=== PATIENT | female | born 1940 | race Caucasian/White ===

== ENCOUNTER 2017-10-29 11:06 | Inpatient (IN) | payer MEDICARE, OTHER, SELFPAY ==
[2017-10-29] VITALS (11 sets, daily range): BP systolic 78–153; BP diastolic 51–82; PULSE 79–102; RESP 14–28; TEMP 37.1–37.4; O2SAT 89–94; BMI 22.3
--- NOTE | 2017-10-29 | DI.MRI.S_ITS ---
PROCEDURE: MR HEAD/BRAIN WO CON INDICATIONS: rule out posterior circulation cva. Ataxia. Decreased right visual field TECHNIQUE: Noncontrast axial T1 spin echo, axial T2 fast spin echo, sagittal and axial FLAIR, coronal T2 fast spin echo, axial gradient echo, axial diffusion and ADC through the brain. COMPARISON: [facility], CT, CT HEAD/BRAIN WO CON, 10/29/2017, 11:48. [facility], NM, PET/CT SKULL BASE TO MID THIGH, 01/08/2017, 11:23. [facility], MR, C-SPINE WITHOUT CONTRAST, 09/20/2013, 14:50. FINDINGS: Image quality: Excellent. CSF Spaces: Basal cisterns are patent. No extra-axial fluid collections. Ventricles are normal in size and shape. Brain: No intracranial masses or hemorrhage. Chu/white matter interface is normal. Brainstem appears normal. Diffusion-weighted images demonstrate no acute ischemic insult. Severe diffuse bilateral subcortical and periventricular white matter T2 signal hyperintensities are noted. Normal intravascular flow voids are present. Skull and face: Calvarium has a nonspecific heterogeneous signal intensity. Orbits appear normal. Sinuses: Sinuses and mastoids are clear. IMPRESSION: Severe diffuse bilateral subcortical and periventricular white matter T2 signal hyperintensities, a nonspecific finding that may represent the sequela of chronic microvascular ischemic changes but can also be seen with demyelinating disorders. Dictated by: Wang Suarez M.D. on 10/29/2017 at 23:09 Approved by: Wang Suarez M.D. on 10/29/2017 at 23:19
--- NOTE | 2017-10-29 11:47 | ED.CHESTPAIN ---
HPI - Chest Pain General Chief Complaint: Chest Pain Stated Complaint: CHEST PAIN Time Seen by Provider: 10/29/17 11:35 Source: patient Mode of arrival: ambulatory Limitations: no limitations History of Present Illness HPI narrative: Yesterday evening the patient developed dizziness and weakness. She had no visual changes or confusion. She has a baseline ataxia, but her ambulation has become significantly worse. She complains no focal weakness or numbness. She actually smokes, she is on oxygen at home. She developed epigastric discomfort as well as dyspnea last night. She did not come in. She hopes to see her PCM today. She kept an ophthalmology appointment with Dr. Patel. The patient has vision challenges already, especially in the right eye. She has macular degeneration. 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 Dr. Patel call me after identifying a new visual field cut, in addition to above complaints. The patient is alert and oriented upon arrival. She complains of no confusion, and no dizziness at this time. She has no peripheral weakness at this time. The ataxia is ongoing. Related Data Home Medications Medication Instructions Recorded Confirmed cholecalciferol (vitamin D3) 1,000 unit PO QDAY #0 07/29/12 10/29/17 [Vitamin D3] multivitamin [Multiple Vitamins] 1 tab PO QDAY #0 01/01/17 10/29/17 PreserVision AREDS 1 tab PO BID 10/29/17 10/29/17 aspirin 81 mg PO QPM 10/29/17 10/29/17 cyclosporine [Restasis] 1 drp OPHTHALMIC (EYE) DIRECTED 10/29/17 10/29/17 levothyroxine 1 tab PO DAILY 10/29/17 10/29/17 melatonin 10 mg PO BEDTIME 10/29/17 10/29/17 metoprolol tartrate 12.5 mg PO BID 10/29/17 10/29/17 polyethylene glycol 3350 17 gm PO DAILY 10/29/17 10/29/17 Previous Rx's Medication Instructions Recorded simvastatin 20 mg PO HS #90 tab 01/12/17 amitriptyline 25 mg tablet 25 - 50 mg PO HS #180 tab 09/20/17 gabapentin 300 mg capsule 300 - 600 mg PO TID #360 cap 09/20/17 Allergies Allergy/AdvReac Type Severity Reaction Status Date / Time ampicillin [AMPICILLIN] Allergy Severe BLOODY Unverified 06/30/17 11:47 DIARRHEA Iodinated Contrast- Oral and Allergy Severe ANAPHYLAXIS Unverified 06/30/17 11:47 IV Dye [IODINATED CONTRAST MEDIA - IV DYE] oxycodone [OXYCODONE] Allergy Intermediate MAKES ME Unverified 06/30/17 11:47 MEAN, CHANGE OF PERSONALITY adhesive [ADHESIVE] Allergy Mild REDNESS Unverified 06/30/17 11:47 clindamycin [CLINDAMYCIN] Allergy Unknown PATIENT Unverified 06/30/17 11:47 CAN'T REMEMBER Review of Systems Review of Systems All systems reviewed & are unremarkable except as noted in HPI and below Constitutional Denies chills, Denies fever(s), Reports headache(s), Denies lethargy and Denies weakness Eyes Reports as per HPI and Reports other (Poor vision as a baseline due to macular degeneration. New visual field deficit.) ENT Ears, Nose, Mouth, and Throat: Reports dizziness and Reports headache(s) Cardiovascular Denies chest pain, Reports chest pain at rest, Denies irregular heart rhythm, Denies lightheadedness, Denies palpitations, Denies dyspnea, Denies dyspnea on exertion and Denies orthopnea Respiratory Denies cough, Denies dyspnea, Denies dyspnea on exertion and Denies wheezing Gastrointestinal Gastrointestinal: Denies abdominal pain, Denies change in bowel habits, Denies diarrhea, Denies nausea and Denies vomiting Genitourinary Reports other (No urinary complaints) Musculoskeletal Reports abnormal gait, Denies back pain, Denies muscle weakness, Denies numbness, Denies stiffness and Denies tingling Integumentary/Breasts Denies pruritus, Denies erythema, Denies rash and Denies wounds Neurologic Denies abnormal speech, Reports abnormal gait, Denies confusion, Reports dizziness, Reports headache(s), Denies numbness, Denies tingling and Denies weakness Psychiatric Denies confusion Endocrine Denies palpitations Allergic/Immunologic Denies wheezing [facility] Medical History Non Hodgkin's lymphoma (Resolved) Hyperlipidemia (Acute) Hypertension (Acute) Hypothyroidism (Acute) Macular degeneration (Acute) Retinal artery occlusion (Acute) Surgical History History of cataract removal with insertion of prosthetic lens Status post cholecystectomy Family History Mother Cancer, Onset Age: 69 Social History Smoking Status: Current every day smoker Exam Initial Vital Signs Initial Vital Signs: Vital Signs Temperature 99.4 F 10/29/17 11:15 Pulse Rate 79 10/29/17 11:15 Respiratory Rate 21 10/29/17 11:15 Blood Pressure 103/54 L 10/29/17 11:15 Pulse Oximetry 94 10/29/17 11:15 Const General: cooperative and well developed Nutritional Appearance: well nourished Orientation: alert, awake, oriented x3 and not confused Limitations: mental status not altered HENMT Head: normocephalic and atraumatic Ears: external ears normal and TM's normal bilaterally Nose: external nose normal Face and sinus: sinuses nontender and face symmetric Mouth: oral mucosae normal and moist mucous membranes Teeth and gingiva: dentition normal Throat: tonsils normal and uvula midline Eyes General: appearance normal, both eyes and all related structures Visual Merino: abnormal by confrontation (She has decreased vision in the right eye.) Pupils: PERRL EOM: EOM intact bilaterally Neck Neck: normal visual inspection, trachea midline, No lymphadenopathy, No midline deformity, No JVD and other (No carotid bruits heard) Lymphatic: No lymphedema Chest Chest: normal inspection of the chest Resp Effort & Inspection: normal respiratory effort, able to speak in complete sentences, no respiratory distress and no use of accessory muscles Auscultation: clear to auscultation bilaterally, no rales, no rhonchi and no wheezes Cardio Rate: regular rate Rhythm: regular rhythm Heart Sounds: no click, no gallops, no murmurs and no rubs Pulses: normal peripheral pulses GI Inspection: non-distended Palpation: soft, no hepatosplenomegaly, No guarding, No pulsatile mass and No tender Auscultation: normal bowel sounds Back/Spine/Pelvis Back: No CVA tenderness Cervical Spine: cervical ROM normal Thoracic/Lumbar Spine: thoracic and lumbar spine normal to inspection Skin General: no rashes or lesions noted, No jaundice and No petechiae Neuro General: alert, awake, oriented x3 and other (Cranial nerves normal other than the right visual deficit.) Cognition: normal cognition Speech: speech normal Gait: other Motor: muscle tone normal throughout Sensory Exam: no sensory deficits noted Scores NIH Stroke Scale Level of Conciousness: Alert, keenly responsive Ask month/age: Answers both questions correctly. Open/close eyes, close hand: Performs both tasks correctly Best gaze horizontal: Normal Visual merino: Partial hemianopia Facial palsy: Normal symetrical movement Left arm drift: No drift for full 10 sec Right arm drift: No drift for full 10 sec Left leg drift: No drift for full 10 sec Right leg drift: No drift for full 10 sec Limb ataxia: Present in two limbs Sensory on face/arms/legs: Normal, no sensory loss Best language: No aphasia, normal Dysarthria: Normal Extinction or inattention: No abnormality Total NIH Stroke scale score: 3 Course Orders Ordered: ED Orders 10/29/17 11:40 Complete Blood Count AUTO DIFF Stat Comprehensive Metabolic Panel Stat Lipase Stat Troponin & CK Cardiac Panel Stat 10/29/17 11:42 Ictotest Urine Stat Urine Culture Stat Urine Microscopic Stat 10/29/17 11:48 XR chest 1V Stat 10/29/17 11:57 CT head/brain wo con Stat 10/29/17 15:45 Consult to Enterprise Application Analyst Routine 10/29/17 16:51 Education, smoking cessation ONGOING 10/29/17 16:53 Consult to Occupational Therapy Evaluate & Treat Consult to Physical Therapy Evaluate & Treat 10/30/17 05:00 Complete Blood Count AUTO DIFF Routine Comprehensive Metabolic Panel Routine Amitriptyline HCl (Elavil) 25 mg PO BEDTIME [facility] Aspirin (Aspirin Ec) 325 mg PO DAILY [facility] Atorvastatin Calcium (Lipitor) 40 mg PO BEDTIME [facility] Enoxaparin Sodium (Lovenox) 40 mg SUBCUT DAILY [facility] Sodium Chloride (Normal Saline 0.9%) 1,000 mls @ 150 mls/hr IV CONT CHRISTINE Last Infusion: 10/29/17 14:52 Dose: 150 mls/hr Admin: 10/29/17 12:19 Dose: 150 mls/hr Sodium Chloride (Normal Saline 0.9%) 1,000 mls @ 75 mls/hr IV CONT CHRISTINE Last Admin: 10/29/17 17:19 Dose: 75 mls/hr Melatonin (Melatonin) 9 mg PO BEDTIME [facility] Metoprolol Tartrate (Lopressor) 12.5 mg PO BID [facility] Multivitamins (Tab-A-Cristóbal) 1 tab PO DAILY [facility] Preservision Areds 1 tab PO BID [facility] Ondansetron HCl (Zofran Odt) 4 mg PO Q8HR PRN PRN Reason: Nausea And Vomiting Ondansetron HCl (Zofran) 4 mg IV Q8HR PRN PRN Reason: Nausea And Vomiting Polyethylene Glycol (Miralax) 17 gm PO DAILY [facility] Vitamin D (Vitamin D3) 1,000 unit PO DAILY [facility] Discontinued Medications Aspirin (Aspirin Chew) 324 mg PO NOW ONE Stop: 10/29/17 13:14 Last Admin: 10/29/17 13:32 Dose: 324 mg Vital Signs - 8 hr 10/29/17 11:30 10/29/17 12:00 10/29/17 12:30 Temperature Pulse Rate 81 87 88 Respiratory Rate 15 27 H 28 H Blood Pressure Blood Pressure [Left Arm] 78/51 L 118/53 L 122/60 H Pulse Oximetry 94 91 89 L 10/29/17 12:33 10/29/17 13:00 10/29/17 14:24 Temperature Pulse Rate 88 89 88 Respiratory Rate 26 H 24 18 Blood Pressure Blood Pressure [Left Arm] 122/60 H 122/60 H 136/62 H Pulse Oximetry 89 L 94 92 10/29/17 14:45 10/29/17 14:53 Temperature 99.2 F Pulse Rate 92 H 93 H Respiratory Rate 16 14 Blood Pressure 112/82 H 133/68 H Blood Pressure [Left Arm] Pulse Oximetry 92 MDM - Chest Pain Medical Records Data Attestation: I reviewed the patient's medical records. Lab Data Attestation: I reviewed the patient's lab results. Result diagrams: 10/29/17 11:40 10/29/17 11:40 Lab Results 10/29/17 10/29/17 10/29/17 Range/Units 11:40 11:40 11:42 WBC 18.3 H (4.5-11.0) X10^3/uL RBC 4.92 (4.0-5.2) X10^6/uL Hgb 15.1 (12.0-16.0) g/dL Hct 44.8 (36-46) % MCV 90.9 (80-100) fL MCH 30.7 (26-34) PG MCHC 33.8 (30-36) % RDW 14.5 (11.6-14.8) % Plt Count 176 (150-400) X10^3/uL Neut % (Auto) 85.1 H (50-75) % Lymph % (Auto) 8.5 L (25-40) % [place] % (Auto) 5.9 (3-14) % Eos % (Auto) 0.1 L (2-4) % Baso % (Auto) 0.4 (0-2) % Neut # (Auto) 53434 H (9756-7134) /uL Sodium 134 L (137-145) mmol/L Potassium 4.0 (3.4-5.1) mmol/L Chloride 96 L (98-107) mmol/L Carbon Dioxide 30 (22-32) mmol/L BUN 17 (7-17) mg/dL Creatinine 0.70 (0.52-1.04) mg/dL Estimated GFR > 60.0 (>60) mL/min BUN/Creatinine Ratio 24.3 H (6-22) Glucose 126 H (80-110) mg/dL Calcium 9.4 (8.4-10.2) mg/dL Total Bilirubin 0.8 (0.2-1.3) mg/dL AST 34 (14-36) IU/L ALT 23 (9-52) IU/L Alkaline Phosphatase 89 (38-126) U/L Total Creatine Kinase 59 (30-135) U/L Troponin I 0.015 (0.01-0.034) ng/mL Total Protein 6.6 (6.3-8.2) g/dL Albumin 4.2 (3.5-5.0) g/dL Globulin 2.4 (1.7-4.1) g/dL Albumin/Globulin Ratio 1.8 (1.0-2.8) Lipase 71 (23-300) U/L Urine Ictotest (Negative) Urine RBC 1-5/hpf (0-5/HPF) Urine WBC 5-10/hpf H (0-5/HPF) Urine Bacteria Many (>30) H (None) Hyaline Casts 30-100/lpf (None) Urine Mucus 2+ H (Negative) Ur Culture Indicated? Specimen cultured Micro UA Comment Not Reportable 10/29/17 Range/Units 11:42 WBC (4.5-11.0) X10^3/uL RBC (4.0-5.2) X10^6/uL Hgb (12.0-16.0) g/dL Hct (36-46) % MCV (80-100) fL MCH (26-34) PG MCHC (30-36) % RDW (11.6-14.8) % Plt Count (150-400) X10^3/uL Neut % (Auto) (50-75) % Lymph % (Auto) (25-40) % [place] % (Auto) (3-14) % Eos % (Auto) (2-4) % Baso % (Auto) (0-2) % Neut # (Auto) (3946-7913) /uL Sodium (137-145) mmol/L Potassium (3.4-5.1) mmol/L Chloride (98-107) mmol/L Carbon Dioxide (22-32) mmol/L BUN (7-17) mg/dL Creatinine (0.52-1.04) mg/dL Estimated GFR (>60) mL/min BUN/Creatinine Ratio (6-22) Glucose (80-110) mg/dL Calcium (8.4-10.2) mg/dL Total Bilirubin (0.2-1.3) mg/dL AST (14-36) IU/L ALT (9-52) IU/L Alkaline Phosphatase (38-126) U/L Total Creatine Kinase (30-135) U/L Troponin I (0.01-0.034) ng/mL Total Protein (6.3-8.2) g/dL Albumin (3.5-5.0) g/dL Globulin (1.7-4.1) g/dL Albumin/Globulin Ratio (1.0-2.8) Lipase (23-300) U/L Urine Ictotest Negative (Negative) Urine RBC (0-5/HPF) Urine WBC (0-5/HPF) Urine Bacteria (None) Hyaline Casts (None) Urine Mucus (Negative) Ur Culture Indicated? Micro UA Comment Imaging Data CT scan - head: Radiologist's impression: No acute changes. Chest x-ray: Radiologist's impression: No acute findings. ECG Data Attestation: I personally reviewed and interpreted this ECG as follows: (EKG: Normal sinus rhythm. No ectopy. No acute ST or T-wave changes. Normal study.) [facility] Narrative Medical decision making narrative: The patient has recent dizziness, with new onset ataxia. Her ophthalmology evaluation she has a new visual field deficit. Findings suggest an acute posterior stroke. I have discussed her care with Dr. Dupree, hospitalist. She will be admitted. Discharge Plan Departure Patient Disposition: Admitted As Inpatient Clinical Impression: Acute CVA (cerebrovascular accident) Discharge Date/Time: 10/29/17 14:40 Interventions: ED Discharge Assessment Last Done: 10/29/17 14:53 Admit Date/Time: 10/29/17 13:36 Admit Provider: Wiley Dupree
--- NOTE | 2017-10-29 11:48 | DI.RAD.S_ITS ---
PROCEDURE: XR CHEST 1V INDICATIONS: chest pain TECHNIQUE: One view of the chest was acquired. COMPARISON: [facility], , CHEST 2 VIEW, 10/15/2016, 16:12. FINDINGS: Surgical changes and devices: Lower cervical spinal fusion. Surgical clips right upper quadrant. Median sternotomy and aVR. Status post left thoracotomy. Lungs and pleura: No pleural effusions or pneumothorax. Lungs are clear. Calcified granuloma left upper lobe as before. Minimal vertical scar at the left base laterally. Minimal septal lines at the right base laterally. Mediastinum: Mediastinal contours appear normal. Heart size is normal. Aortic calcifications. Bones and chest wall: No suspicious bony lesions. Overlying soft tissues appear unremarkable. IMPRESSION: Postoperative changes as before. No acute cardiopulmonary abnormality or source of chest pain seen. Dictated by: Fernandez Geronimo M.D. on 10/29/2017 at 12:05 Approved by: Fernandez Geronimo M.D. on 10/29/2017 at 12:08
--- NOTE | 2017-10-29 11:57 | DI.CT.S_ITS ---
PROCEDURE: CT HEAD/BRAIN WO CON INDICATIONS: Visual field cut. Ataxia. TECHNIQUE: Noncontrast 4.5 mm thick angled axial sections acquired from the foramen magnum to the vertex, with coronal and sagittal reformats. For radiation dose reduction, the following was used: automated exposure control, adjustment of mA and/or kV according to patient size. COMPARISON: None. FINDINGS: Image quality: Excellent. CSF spaces: Basal cisterns are patent. No extra-axial fluid collections. The ventricles are symmetric in size and shape. Brain: No intracranial bleeds or masses. There is cerebral volume loss for age, with resultant ventricular and sulcal prominence. There are periventricular and deep white matter chronic small vessel ischemic changes. There is intracranial internal carotid artery atherosclerosis. Skull and face: Calvarium and visualized facial bones appear intact, without suspicious lesions. Sinuses: Visualized sinuses and mastoids are clear . IMPRESSION: No acute intracranial process. Dictated by: Haroldo Barton M.D. on 10/29/2017 at 12:00 Approved by: Haroldo Barton M.D. on 10/29/2017 at 12:02
[2017-10-29 12:10] LABS: Add Manual Diff / Slide Review NO; Basophils Percent Auto 0.4 % (0-2); Eosinophils Percent Auto 0.1 % (2-4); Hematocrit 44.8 % (36-46); Hemoglobin 15.1 g/dL (12.0-16.0); Lymphocytes Percent Auto 8.5 % (25-40); Mean Corpuscular HGB Conc 33.8 % (30-36); Mean Corpuscular Hemoglobin 30.7 PG (26-34); Mean Corpuscular Volume 90.9 fL (80-100); Monocytes Percent Auto 5.9 % (3-14); Neutrophils Absolute Auto 15500 /uL (3000-5900); Neutrophils Percent Auto 85.1 % (50-75); Platelet Count 176 X10^3/uL (150-400); Red Blood Cell Count 4.92 X10^6/uL (4.0-5.2); Red Cell Distribution Width 14.5 % (11.6-14.8); White Blood Cell Count 18.3 X10^3/uL (4.5-11.0)
[2017-10-29 12:17] LABS: Alanine Aminotransferase 23 IU/L (9-52); Albumin 4.2 g/dL (3.5-5.0); Albumin Globulin Ratio 1.8 (1.0-2.8); Alkaline Phosphatase 89 U/L (38-126); Aspartate Aminotransferase 34 IU/L (14-36); BUN Creatinine Ratio 24.3 (6-22); Bilirubin Total 0.8 mg/dL (0.2-1.3); Blood Urea Nitrogen 17 mg/dL (7-17); Calcium 9.4 mg/dL (8.4-10.2); Carbon Dioxide 30 mmol/L (22-32); Chloride 96 mmol/L (98-107); Creatine Kinase 59 U/L (30-135); Estimated Glomerular Filt Rate > 60.0 mL/min (>60); Globulin 2.4 g/dL (1.7-4.1); Glucose 126 mg/dL (80-110); HEMOLYSIS 16 (0-50); Lipase 71 U/L (23-300); Sodium 134 mmol/L (137-145); Total Protein 6.6 g/dL (6.3-8.2)
[2017-10-29] MEDS: SODIUM CHLORIDE 0.9% 1,000 ML 150 ML IV (12:19)
[2017-10-29 12:28] LABS: Troponin I 0.015 ng/mL (0.01-0.034)
[2017-10-29 13:14] LABS: Bacteria Urine Many (>30); Hyaline Casts Urine 30-100/LPF; Mucus Urine 2+ (Negative); RBC Urine 1-5/HPF (0-5/HPF); WBC Urine 5-10/HPF (0-5/HPF)
[2017-10-29 13:15] LABS: Culture Indicated Urine Specimen Cultured; Ictotest Urine Negative (Negative)
[2017-10-29] MEDS: ASPIRIN 81 MG TAB 324 MG PO (13:32)
--- NOTE | 2017-10-29 17:01 | PM.HP.1 ---
History of Present Illness Date Patient Seen: 10/29/17 Time Patient Seen: 14:08 Chief complaint: CHEST PAIN Narrative: Patient is a 77 years of age female that notes she had quite a remarkable change in her dizziness and imbalance in the past 24 hr. Patient notes that in the past 24 hr the symptoms were much more severe. Patient notes that she was scheduled to have a visit with her sawmill worker which is normally every 3 months or so. Patient with a history of retinal artery occlusion in 1995. The patient's sawmill worker Dr. miller note that patient had a visual field deficit of the left eye on the right mid visual field. Patient did not notice any change in her field of vision prior to this visit. ER physician notes the patient was sent to the ER for further evaluation due to the visual field deficit noted by the sawmill worker. Patient's previous ophthalmology visit was a few months ago and this visual field deficit was not noted then. Based upon history provided it would be difficult to ascertain when patient actually had this visual field deficit occur. Patient is a continued chronic smoker. She is certainly at risk for repeat occurrence of occlusive artery disease. What appears to be also quite worrisome is this imbalance problem that appears to be much more notable to the patient. Patient had a failed finger to nose appointing as well as heel-zayas pointing all suggestive of cerebellum deficit. Patient has no prior history of cerebellar stroke. Patient also notes having epigastric discomfort and tenderness. Patient History Medical History Non Hodgkin's lymphoma (Resolved) Hyperlipidemia (Acute) Hypertension (Acute) Hypothyroidism (Acute) Macular degeneration (Acute) Retinal artery occlusion (Acute) Surgical History History of cataract removal with insertion of prosthetic lens Status post cholecystectomy Family & Social History Family History: Reviewed 10/29/17 by Wiley Dupree MD Safety & Behavioral: Feels Safe in Current Yes Environment Tobacco & Substance use: Smoking Status Current every day smoker alcohol intake frequency 0-2 drinks per day Substance Use Type does not use Meds Home Medications Medication Instructions Recorded Confirmed Type cholecalciferol (vitamin D3) 1,000 unit PO QDAY #0 07/29/12 10/29/17 History [Vitamin D3] multivitamin [Multiple Vitamins] 1 tab PO QDAY #0 01/01/17 10/29/17 History simvastatin 20 mg PO HS #90 tab 01/12/17 10/29/17 Rx amitriptyline 25 mg tablet 25 - 50 mg PO HS #180 tab 09/20/17 10/29/17 Rx gabapentin 300 mg capsule 300 - 600 mg PO TID #360 cap 09/20/17 10/29/17 Rx PreserVision AREDS 1 tab PO BID 10/29/17 10/29/17 History aspirin 81 mg PO QPM 10/29/17 10/29/17 History cyclosporine [Restasis] 1 drp OPHTHALMIC (EYE) DIRECTED 10/29/17 10/29/17 History levothyroxine 1 tab PO DAILY 10/29/17 10/29/17 History melatonin 10 mg PO BEDTIME 10/29/17 10/29/17 History metoprolol tartrate 12.5 mg PO BID 10/29/17 10/29/17 History polyethylene glycol 3350 17 gm PO DAILY 10/29/17 10/29/17 History Allergies Allergy/AdvReac Type Severity Reaction Status Date / Time ampicillin [AMPICILLIN] Allergy Severe BLOODY Unverified 06/30/17 11:47 DIARRHEA Iodinated Contrast- Oral and Allergy Severe ANAPHYLAXIS Unverified 06/30/17 11:47 IV Dye [IODINATED CONTRAST MEDIA - IV DYE] oxycodone [OXYCODONE] Allergy Intermediate MAKES ME Unverified 06/30/17 11:47 MEAN, CHANGE OF PERSONALITY adhesive [ADHESIVE] Allergy Mild REDNESS Unverified 06/30/17 11:47 clindamycin [CLINDAMYCIN] Allergy Unknown PATIENT Unverified 06/30/17 11:47 CAN'T REMEMBER Review of Systems Review of Systems A 10 point review of system was negative except for the symptoms as follow. Patient notes that she does normally have dizziness of sorts and this has been an ongoing problem for years. This dates back to 2003 according to the patient. Patient notes that in the past 24 hr however she had a quite a remarkable change in her balance with associated dizziness. No recent fever no cough no shortness of breath no nausea. No chest pain. Patient has noted some epigastric discomfort and tenderness. Patient did not notice any visual field deficits prior to her visit to the sawmill worker that was scheduled every 2-3 months. Patient had this visit to the sawmill worker this morning. Exam Vital Signs (past 8 hours): - 10/29/17 11:15 08/10/18 11:30 10/29/17 12:00 Temperature 99.4 F Pulse Rate 79 81 87 Respiratory Rate 21 15 27 H Blood Pressure 103/54 L Blood Pressure [Left Arm] 78/51 L 118/53 L Pulse Oximetry 94 94 91 10/29/17 12:30 10/29/17 12:33 10/29/17 13:00 Temperature Pulse Rate 88 88 89 Respiratory Rate 28 H 26 H 24 Blood Pressure Blood Pressure [Left Arm] 122/60 H 122/60 H 122/60 H Pulse Oximetry 89 L 89 L 94 10/29/17 14:24 10/29/17 14:45 10/29/17 14:53 Temperature 99.2 F Pulse Rate 88 92 H 93 H Respiratory Rate 18 16 14 Blood Pressure 112/82 H 133/68 H Blood Pressure [Left Arm] 136/62 H Pulse Oximetry 92 92 Oxygen Delivery Method Room Air Narrative Exam Narrative: General appearance patient is not awake and alert no apparent distress at rest. Patient has long-standing friend is visiting her sitting in the chair in the room as well. Psychiatric Patient is well oriented in no apparent distress mood is pleasant and cooperative affect is appropriate. Skin Atrophy is skin is apparent which may be re-reflective of the longstanding smoking history. Nonjaundiced no rashes or lesions noted Eyes Pupils are equal round and reactive to light hull of confrontation I could not elicit the field deficit of the left eye on bedside exam Ears nose and throat Hearing grossly normal, nasal exam- septum to midline no bleeding, no oropharyngeal lesions noted Respiratory Fairly clear to auscultation no significant wheezes or crackles noted Cardiovascular Regular in rate and rhythm no murmurs noted GI Epigastric area is tender to palpation, no distention no guarding good bowel sounds are noted no bruits Lymph nodes is no lymphadenopathy to neck or axilla Musculoskeletal strength appears to be symmetric 5/5, no clubbing is noted, range of motion appears normal Neurologic Patient with evidence for cerebellar deficit with [id number] pointing which is deficient in both hands along with healed zayas pinpointing which is abnormal. No proprioception deficit noted. Objective Labs Result Diagrams: 10/29/17 11:40 10/29/17 11:40 Labs: Laboratory Results - last 24 hr 10/29/17 10/29/17 10/29/17 11:40 11:40 11:42 WBC 18.3 H RBC 4.92 Hgb 15.1 Hct 44.8 MCV 90.9 MCH 30.7 MCHC 33.8 RDW 14.5 Plt Count 176 Neut % (Auto) 85.1 H Lymph % (Auto) 8.5 L [place] % (Auto) 5.9 Eos % (Auto) 0.1 L Baso % (Auto) 0.4 Neut # (Auto) 42308 H Sodium 134 L Potassium 4.0 Chloride 96 L Carbon Dioxide 30 BUN 17 Creatinine 0.70 Estimated GFR > 60.0 BUN/Creatinine Ratio 24.3 H Glucose 126 H Calcium 9.4 Total Bilirubin 0.8 AST 34 ALT 23 Alkaline Phosphatase 89 Total Creatine Kinase 59 Troponin I 0.015 Total Protein 6.6 Albumin 4.2 Globulin 2.4 Albumin/Globulin Ratio 1.8 Lipase 71 Urine Ictotest Urine RBC 1-5/hpf Urine WBC 5-10/hpf H Urine Bacteria Many (>30) H Hyaline Casts 30-100/lpf Urine Mucus 2+ H Ur Culture Indicated? Specimen cultured Micro UA Comment Not Reportable 10/29/17 11:42 WBC RBC Hgb Hct MCV MCH MCHC RDW Plt Count Neut % (Auto) Lymph % (Auto) [place] % (Auto) Eos % (Auto) Baso % (Auto) Neut # (Auto) Sodium Potassium Chloride Carbon Dioxide BUN Creatinine Estimated GFR BUN/Creatinine Ratio Glucose Calcium Total Bilirubin AST ALT Alkaline Phosphatase Total Creatine Kinase Troponin I Total Protein Albumin Globulin Albumin/Globulin Ratio Lipase Urine Ictotest Negative Urine RBC Urine WBC Urine Bacteria Hyaline Casts Urine Mucus Ur Culture Indicated? Micro UA Comment Assessment & Plan Plan: Assessment/Plan Narrative: 1. 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 The symptoms started approximately 1-2 days ago. An MRI of the brain without contrast is requested to be done. In the meantime will change from simvastatin to Lipitor 40 mg at bedtime. Continue the aspirin daily that she normally takes prior to admission. Continue the proton pump inhibitor medication as a GI protective measure. 2. Visual field deficit Patient did not notice this deficit prior to her ophthalmology appointment that was scheduled every 3 months and she was seeing Dr. miller her sawmill worker this morning. Dr. Sena noted the left eye with a visual field deficit to the right. As noted in my exam I could not elicit that visual field deficit. In speaking to Dr. miller by telephone she notes that they would have been difficult to identify this deficit on exam. Dr. miller also notes that it would be difficult to ascertain when patient may have developed this visual field deficit. It was not noted on the ophthalmology exam 3 months ago. Patient did not recognize any new deficit to her vision over the past 3 months. note an MRI of the brain is to be done without contrast. 3. Smoking addiction I had a very lengthy conversation with the patient at bedside regarding her smoker addiction history. Patient appeared to be quite receptive. Patient has successfully abstained from smoking with her friend in support. They are in agreement that would both like to stop and neck and also stop for each other which appears to be an added measure of reason for each of them to consider cessation of smoking. Nicotine patch as needed 4. Epigastric pain and tenderness Will provide a proton pump inhibitor. Zofran as needed for what appears to be a mild nausea. 5. Polyuria Urine for urinalysis culture if indicated is requested. Note patient with elevated WBC count in the ER. This could be stress related. Repeat labs in a.m. are ordered. Time Spent With Patient Time with patient: Greater than 35 minutes (70 min)
--- NOTE | 2017-10-29 17:09 | P.HP_ITS ---
History of Present Illness Date Patient Seen: 10/29/17 Time Patient Seen: 14:08 Chief complaint: CHEST PAIN Narrative: Patient is a 77 years of age female that notes she had quite a remarkable change in her dizziness and imbalance in the past 24 hr. Patient notes that in the past 24 hr the symptoms were much more severe. Patient notes that she was scheduled to have a visit with her event crew technician which is normally every 3 months or so. Patient with a history of retinal artery occlusion in 1995. The patient's event crew technician Dr. miller note that patient had a visual field deficit of the left eye on the right mid visual field. Patient did not notice any change in her field of vision prior to this visit. ER physician notes the patient was sent to the ER for further evaluation due to the visual field deficit noted by the event crew technician. Patient's previous ophthalmology visit was a few months ago and this visual field deficit was not noted then. Based upon history provided it would be difficult to ascertain when patient actually had this visual field deficit occur. Patient is a continued chronic smoker. She is certainly at risk for repeat occurrence of occlusive artery disease. What appears to be also quite worrisome is this imbalance problem that appears to be much more notable to the patient. Patient had a failed finger to nose appointing as well as heel-zayas pointing all suggestive of cerebellum deficit. Patient has no prior history of cerebellar stroke. Patient also notes having epigastric discomfort and tenderness. Patient History Medical History Non Hodgkin's lymphoma (Resolved) Hyperlipidemia (Acute) Hypertension (Acute) Hypothyroidism (Acute) Macular degeneration (Acute) Retinal artery occlusion (Acute) Surgical History History of cataract removal with insertion of prosthetic lens Status post cholecystectomy Family & Social History Family History: Reviewed 10/29/17 by Wiley Dupree MD Safety & Behavioral: Feels Safe in Current Yes Environment Tobacco & Substance use: Smoking Status Current every day smoker alcohol intake frequency 0-2 drinks per day Substance Use Type does not use Meds Home Medications Medication Instructions Recorded Confirmed Type cholecalciferol (vitamin D3) 1,000 unit PO QDAY #0 07/29/12 10/29/17 History [Vitamin D3] multivitamin [Multiple Vitamins] 1 tab PO QDAY #0 01/01/17 10/29/17 History simvastatin 20 mg PO HS #90 tab 01/12/17 10/29/17 Rx amitriptyline 25 mg tablet 25 - 50 mg PO HS #180 tab 09/20/17 10/29/17 Rx gabapentin 300 mg capsule 300 - 600 mg PO TID #360 cap 09/20/17 10/29/17 Rx PreserVision AREDS 1 tab PO BID 10/29/17 10/29/17 History aspirin 81 mg PO QPM 10/29/17 10/29/17 History cyclosporine [Restasis] 1 drp OPHTHALMIC (EYE) DIRECTED 10/29/17 10/29/17 History levothyroxine 1 tab PO DAILY 10/29/17 10/29/17 History melatonin 10 mg PO BEDTIME 10/29/17 10/29/17 History metoprolol tartrate 12.5 mg PO BID 10/29/17 10/29/17 History polyethylene glycol 3350 17 gm PO DAILY 10/29/17 10/29/17 History Allergies Allergy/AdvReac Type Severity Reaction Status Date / Time ampicillin [AMPICILLIN] Allergy Severe BLOODY Unverified 06/30/17 11:47 DIARRHEA Iodinated Contrast- Oral and Allergy Severe ANAPHYLAXIS Unverified 06/30/17 11: 47 IV Dye [IODINATED CONTRAST MEDIA - IV DYE] oxycodone [OXYCODONE] Allergy Intermediate MAKES ME Unverified 06/30/17 11:47 MEAN, CHANGE OF PERSONALITY adhesive [ADHESIVE] Allergy Mild REDNESS Unverified 06/30/17 11:47 clindamycin [CLINDAMYCIN] Allergy Unknown PATIENT Unverified 06/30/17 11:47 CAN'T REMEMBER Review of Systems Review of Systems A 10 point review of system was negative except for the symptoms as follow. Patient notes that she does normally have dizziness of sorts and this has been an ongoing problem for years. This dates back to 2003 according to the patient. Patient notes that in the past 24 hr however she had a quite a remarkable change in her balance with associated dizziness. No recent fever no cough no shortness of breath no nausea. No chest pain. Patient has noted some epigastric discomfort and tenderness. Patient did not notice any visual field deficits prior to her visit to the event crew technician that was scheduled every 2-3 months. Patient had this visit to the event crew technician this morning. Exam Vital Signs (past 8 hours): - 10/29/17 11:15 08/10/18 11:30 10/29/17 12:00 Temperature 99.4 F Pulse Rate 79 81 87 Respiratory Rate 21 15 27 H Blood Pressure 103/54 L Blood Pressure [Left Arm] 78/51 L 118/53 L Pulse Oximetry 94 94 91 10/29/17 12:30 10/29/17 12:33 10/29/17 13:00 Temperature Pulse Rate 88 88 89 Respiratory Rate 28 H 26 H 24 Blood Pressure Blood Pressure [Left Arm] 122/60 H 122/60 H 122/60 H Pulse Oximetry 89 L 89 L 94 10/29/17 14:24 10/29/17 14:45 10/29/17 14:53 Temperature 99.2 F Pulse Rate 88 92 H 93 H Respiratory Rate 18 16 14 Blood Pressure 112/82 H 133/68 H Blood Pressure [Left Arm] 136/62 H Pulse Oximetry 92 92 Oxygen Delivery Method Room Air Narrative Exam Narrative: General appearance patient is not awake and alert no apparent distress at rest. Patient has long-standing friend is visiting her sitting in the chair in the room as well. Psychiatric Patient is well oriented in no apparent distress mood is pleasant and cooperative affect is appropriate. Skin Atrophy is skin is apparent which may be re-reflective of the longstanding smoking history. Nonjaundiced no rashes or lesions noted Eyes Pupils are equal round and reactive to light hull of confrontation I could not elicit the field deficit of the left eye on bedside exam Ears nose and throat Hearing grossly normal, nasal exam- septum to midline no bleeding, no oropharyngeal lesions noted Respiratory Fairly clear to auscultation no significant wheezes or crackles noted Cardiovascular Regular in rate and rhythm no murmurs noted GI Epigastric area is tender to palpation, no distention no guarding good bowel sounds are noted no bruits Lymph nodes is no lymphadenopathy to neck or axilla Musculoskeletal strength appears to be symmetric 5/5, no clubbing is noted, range of motion appears normal Neurologic Patient with evidence for cerebellar deficit with [id number] pointing which is deficient in both hands along with healed zayas pinpointing which is abnormal. No proprioception deficit noted. Objective Labs Result Diagrams: 10/29/17 11:40 10/29/17 11:40 Labs: Laboratory Results - last 24 hr 10/29/17 10/29/17 10/29/17 11:40 11:40 11:42 WBC 18.3 H RBC 4.92 Hgb 15.1 Hct 44.8 MCV 90.9 MCH 30.7 MCHC 33.8 RDW 14.5 Plt Count 176 Neut % (Auto) 85.1 H Lymph % (Auto) 8.5 L [place] % (Auto) 5.9 Eos % (Auto) 0.1 L Baso % (Auto) 0.4 Neut # (Auto) 99285 H Sodium 134 L Potassium 4.0 Chloride 96 L Carbon Dioxide 30 BUN 17 Creatinine 0.70 Estimated GFR > 60.0 BUN/Creatinine Ratio 24.3 H Glucose 126 H Calcium 9.4 Total Bilirubin 0.8 AST 34 ALT 23 Alkaline Phosphatase 89 Total Creatine Kinase 59 Troponin I 0.015 Total Protein 6.6 Albumin 4.2 Globulin 2.4 Albumin/Globulin Ratio 1.8 Lipase 71 Urine Ictotest Urine RBC 1-5/hpf Urine WBC 5-10/hpf H Urine Bacteria Many (>30) H Hyaline Casts 30-100/lpf Urine Mucus 2+ H Ur Culture Indicated? Specimen cultured Micro UA Comment Not Reportable 10/29/17 11:42 WBC RBC Hgb Hct MCV MCH MCHC RDW Plt Count Neut % (Auto) Lymph % (Auto) [place] % (Auto) Eos % (Auto) Baso % (Auto) Neut # (Auto) Sodium Potassium Chloride Carbon Dioxide BUN Creatinine Estimated GFR BUN/Creatinine Ratio Glucose Calcium Total Bilirubin AST ALT Alkaline Phosphatase Total Creatine Kinase Troponin I Total Protein Albumin Globulin Albumin/Globulin Ratio Lipase Urine Ictotest Negative Urine RBC Urine WBC Urine Bacteria Hyaline Casts Urine Mucus Ur Culture Indicated? Micro UA Comment Assessment & Plan Plan: Assessment/Plan Narrative: 1. 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 The symptoms started approximately 1-2 days ago. An MRI of the brain without contrast is requested to be done. In the meantime will change from simvastatin to Lipitor 40 mg at bedtime. Continue the aspirin daily that she normally takes prior to admission. Continue the proton pump inhibitor medication as a GI protective measure. 2. Visual field deficit Patient did not notice this deficit prior to her ophthalmology appointment that was scheduled every 3 months and she was seeing Dr. miller her event crew technician this morning. Dr. Sena noted the left eye with a visual field deficit to the right. As noted in my exam I could not elicit that visual field deficit. In speaking to Dr. miller by telephone she notes that they would have been difficult to identify this deficit on exam. Dr. miller also notes that it would be difficult to ascertain when patient may have developed this visual field deficit. It was not noted on the ophthalmology exam 3 months ago. Patient did not recognize any new deficit to her vision over the past 3 months. note an MRI of the brain is to be done without contrast. 3. Smoking addiction I had a very lengthy conversation with the patient at bedside regarding her smoker addiction history. Patient appeared to be quite receptive. Patient has successfully abstained from smoking with her friend in support. They are in agreement that would both like to stop and neck and also stop for each other which appears to be an added measure of reason for each of them to consider cessation of smoking. Nicotine patch as needed 4. Epigastric pain and tenderness Will provide a proton pump inhibitor. Zofran as needed for what appears to be a mild nausea. 5. Polyuria Urine for urinalysis culture if indicated is requested. Note patient with elevated WBC count in the ER. This could be stress related. Repeat labs in a.m. are ordered. Time Spent With Patient Time with patient: Greater than 35 minutes (70 min)
[2017-10-29] MEDS: SODIUM CHLORIDE 0.9% 1,000 ML 75 ML IV (17:19)
[2017-10-29] MEDS: AMITRIPTYLINE 25 MG TABLET PO (21:17)
[2017-10-29] MEDS: ATORVASTATIN 20 MG TABLET 40 MG PO (21:17)
[2017-10-29] MEDS: METOPROLOL 12.5 MG TABLET PO (21:17)
[2017-10-29] MEDS: MELATONIN 3 MG TABLET 9 MG PO (21:17)
[2017-10-29] MEDS: ACETAMINOPHEN 325 MG TABLET PO (21:32)
[2017-10-29] MEDS: TRAMADOL 50 MG TABLET PO (21:32)
[2017-10-30] VITALS (14 sets, daily range): BP systolic 101–156; BP diastolic 46–96; PULSE 67–98; RESP 16–18; TEMP 36.7–37.6; O2SAT 88–96
--- NOTE | 2017-10-30 05:04 | PC.NURSE ---
Pt is AxOx3, was 90% on room air so transitioned to 2L NC, pt states shes on O2 at home at night. Walks with walker with a standby assist. NIH scale 0, only some difficulty with pointing finger to nose but eventually gets it. Non-productive intermittent cough. IVF continued. No complaints of pain. Voids in bathroom. Reports no vision loss, but states she just doesn't have great vision to begin with and wears glasses. Tele showing NSR.
[2017-10-30 06:13] LABS: Add Manual Diff / Slide Review NO; Basophils Percent Auto 0.4 % (0-2); Eosinophils Percent Auto 0.9 % (2-4); Hematocrit 40.2 % (36-46); Hemoglobin 13.6 g/dL (12.0-16.0); Lymphocytes Percent Auto 13.1 % (25-40); Mean Corpuscular HGB Conc 33.8 % (30-36); Mean Corpuscular Hemoglobin 30.7 PG (26-34); Mean Corpuscular Volume 90.8 fL (80-100); Monocytes Percent Auto 6.4 % (3-14); Neutrophils Absolute Auto 9200 /uL (3000-5900); Neutrophils Percent Auto 79.2 % (50-75); Platelet Count 144 X10^3/uL (150-400); Red Blood Cell Count 4.43 X10^6/uL (4.0-5.2); Red Cell Distribution Width 14.7 % (11.6-14.8); White Blood Cell Count 11.7 X10^3/uL (4.5-11.0)
[2017-10-30 06:25] LABS: Alanine Aminotransferase 22 IU/L (9-52); Albumin 3.4 g/dL (3.5-5.0); Albumin Globulin Ratio 1.5 (1.0-2.8); Alkaline Phosphatase 76 U/L (38-126); Aspartate Aminotransferase 21 IU/L (14-36); Bilirubin Total 0.7 mg/dL (0.2-1.3); Blood Urea Nitrogen 12 mg/dL (7-17); Calcium 8.7 mg/dL (8.4-10.2); Carbon Dioxide 29 mmol/L (22-32); Chloride 99 mmol/L (98-107); Estimated Glomerular Filt Rate > 60.0 mL/min (>60); Globulin 2.3 g/dL (1.7-4.1); Glucose 93 mg/dL (80-110); HEMOLYSIS < 15 (0-50); Potassium 3.8 mmol/L (3.4-5.1); Sodium 132 mmol/L (137-145); Total Protein 5.7 g/dL (6.3-8.2)
[2017-10-30] MEDS: LEVOTHYROXINE 75 MCG TABLET PO (07:53)
[2017-10-30] MEDS: CHOLECALCIFEROL (VITAMIN D3) 1,000 UNIT TABLET 1000 UNIT PO (08:52)
[2017-10-30] MEDS: ASPIRIN EC 325 MG TABLET PO (08:53)
[2017-10-30] MEDS: METOPROLOL 12.5 MG TABLET PO ×2 (08:53→20:42)
[2017-10-30] MEDS: NAPROXEN 250 MG TABLET 375 MG PO (08:53)
[2017-10-30] MEDS: MULTIVITAMIN 1 TABLET 1 TAB PO (08:53)
[2017-10-30] MEDS: GABAPENTIN 300 MG CAPSULE PO ×3 (08:53→20:42)
[2017-10-30] MEDS: POLYETHYLENE GLYCOL 3350 17 GM POWD.PACK PO (08:54)
[2017-10-30] MEDS: ENOXAPARIN 40 MG/0.4 ML SYRINGE SUBCUT (08:54)
[2017-10-30] MEDS: SODIUM CHLORIDE 0.9% 1,000 ML 75 ML IV ×2 (09:26→22:51)
--- NOTE | 2017-10-30 11:30 | PT.IIE ---
Surgical History (Last Reviewed 10/29/17 @ 19:18 by Kike Medina MD) History of cataract removal with insertion of prosthetic lens Status post cholecystectomy Medical History (Last Updated 10/29/17 @ 17:05 by Wiley Dupree MD) Non Hodgkin's lymphoma (Resolved) Hyperlipidemia (Acute) Hypertension (Acute) Hypothyroidism (Acute) Macular degeneration (Acute) Retinal artery occlusion (Acute) Physical Therapy Inpatient Evaluation/Re-Eval M1 PT/OT-IP Prior Functional Status Start: 10/30/17 11:33 Freq: Status: Active Protocol: Document 10/30/17 11:30 [facility] (Rec: 10/30/17 11:57 [facility] [id number]) Medical Review Prior Functional Status Medical History Reviewed Yes Communication WNL Mobility and Gait indep. community gait without device Activities of Daily Living and IADL's indep. I/ADLs- driving during the day only. Social History Household Members none Living Arrangements House Number of Floors (Floors) Two Floors Number of Stairs To Enter/Railing? no steps, but does need to manage stairs for laundry room Home Environment Standard Height Toilet Home Equipment Front Wheel Walker Additional Social History Comment walk-in tub for bathing. Pt reports she has a lot of friend support in her area. M2 PT-IP Current Condition Start: 10/30/17 11:33 Freq: Status: Active Protocol: Document 10/30/17 11:30 [facility] (Rec: 10/30/17 11:57 [facility] [id number]) Physical Therapy Current Condition Current Condition Evaluation Date 10/30/17 Treatment Diagnosis impaired mobility and activity tolerance, visual changes Onset Date 10/26/17 M3 PT-IP Subjective Start: 10/30/17 11:33 Freq: Status: Active Protocol: Document 10/30/17 11:30 [facility] (Rec: 10/30/17 11:57 [facility] [id number]) Subjective Physical Therapy Visit Type Type Initial Evaluation Visit Start Time 11:00 Visit Stop Time 11:30 Total Visit Minutes 30 Notes pt on 1-L O2 at beginning of sesssin, taken off O2 during this session. Number of ORDNANCE HANDLER Visits 0 Physical Therapy Visit Comments Patient Comments pt would like to go home today Therapy Pain Assessment Pain Present Pain Present Denied Pain M4 PT-IP Mobility and Gait Start: 10/30/17 11:33 Freq: Status: Active Protocol: Document 10/30/17 11:30 [facility] (Rec: 10/30/17 11:57 [facility] [id number]) PT-Bed Mobility Assessment Supine to Sit Supine to Sit Minimal Assistance 1 Person Assistance Scooting Scooting to Edge of Bed Minimal Assistance PT-Transfer Assessment Sit to and From Stand Sit to and from Stand Standby Assistance Equipment Transfer Assistive Device Gait Belt Front Wheeled Walker Transfers Transfer Destination Chair Transfer Technique Stand Step Pivot Transfer Ability Level of Assist Standby Assistance Comments Mobility Comments coughing throughout session. Gait Assessment Gait Gait Assistance Required: Standby Assistance Distance (Feet) (feet) 40 Assistive Devices Assistive Device Gait Belt Front Wheeled Walker Gait Deviations General Gait Pattern Decreased Stride Length Decreased Feet Clearance Factors Limiting Gait Function Factors Limiting Gait Function Decreased Activity Tolerance Decreased Strength Incoordination Poor Balance Comments Gait Comments increased cough with gait, increased use of UEs when fatigued during gait. Pt on RA during gait- O2 saturation 88-92% during session PT-Balance Assessment Sitting Balance and Reactions Static Sitting Balance Ability Good Dynamic Sitting Balance Ability Good Standing Balance and Reactions Static Standing Balance Ability Fair Dynamic Standing Balance Ability Poor Device Used FWW M5 PT-IP Objective Assessments Start: 10/30/17 11:33 Freq: Status: Active Protocol: Document 10/30/17 11:30 [facility] (Rec: 10/30/17 11:57 [facility] [id number]) Orientation Orientation/Cognition Level of Alertness Alert Strength Comments Strength Comments BLE grossly 3+/5 Coordination Assessment Assessment Heel on Zayas Test Minimal Impairment Coordination Comments slow movement with heel to zayas, L>R difficulty (L heel to R zayas greater difficulty) M7 PT-IP Assessment and Plan Start: 10/30/17 11:33 Freq: Status: Active Protocol: Document 10/30/17 11:30 [facility] (Rec: 10/30/17 11:57 [facility] [id number]) PT Summary Assessment and Plan Potential Rehabilitation Potential Good Status of Condition at Evaluation Evolving Summary Impairments Strength Balance Coordination Bed Mobility Transfers Gait Activity Tolerance Assessment Summary Pt able to ambulate 40 ft with a FWW and SBA. Her O2 saturation dropped to 88% on RA during gait, with baseline at 92% at rest. Pt's cough increased during gait, which pt also reports that makes her more fatigued (non-productive cough). Pt appears to have good friend/neighbor support ( Dr. Dupree reports a friend stated that they would do laundry for her). It is recommended pt use her walker at home for safety with mobility, and have a friend stay initially with her at her home until she improves. Pt may benefit from HH services for progression of mobility and increasing functional independence. Goals Bed Mobility Goal Standby Assistance Transfer Goal Standby Assistance Gait Goal Standby Assistance Gait Distance 150 Days to Meet Goals 2 Frequency of Treatment Frequency Of Treatment Twice a Day Treatment Plan Physical Therapy Treatment Plan Bed Mobility Training Transfer Training Gait Training Therapeutic Exercise Balance Retraining Discharge Planning Neuromuscular Re-ed Recommendations To Nursing Amount of Assist Needed 1 Person Assist Discharge Recommendations PT Discharge Recommendations Home with Assistance Home Health Equipment Needed for Home Before HH PT and OT recommended Discharge
--- NOTE | 2017-10-30 14:27 | PT.IPTN ---
Physical Therapy Treatment Note M2 PT-IP Current Condition Start: 10/30/17 11:33 Freq: Status: Active Protocol: Document 10/30/17 11:30 [facility] (Rec: 10/30/17 11:57 [facility] [id number]) Physical Therapy Current Condition Current Condition Evaluation Date 10/30/17 Treatment Diagnosis impaired mobility and activity tolerance, visual changes Onset Date 10/26/17 M3 PT-IP Subjective Start: 10/30/17 11:33 Freq: Status: Active Protocol: Document 10/30/17 14:20 [facility] (Rec: 10/30/17 14:26 [facility] [id number]) Subjective Physical Therapy Visit Type Type Treatment Note Visit Start Time 13:55 Visit Stop Time 14:15 Total Visit Minutes 20 Number of LITHOGRAPHIC PHOTOGRAPHER Visits 1 Physical Therapy Visit Comments Patient Comments Pt willing to work with PT. M4 PT-IP Mobility and Gait Start: 10/30/17 11:33 Freq: Status: Active Protocol: Document 10/30/17 14:20 [facility] (Rec: 10/30/17 14:26 [facility] [id number]) PT-Transfer Assessment Sit to and From Stand Sit to and from Stand Standby Assistance Equipment Transfer Assistive Device Gait Belt 4 Wheeled Walker Transfers Transfer Destination Chair Gait Assessment Gait Gait Assistance Required: Standby Assistance Distance (Feet) (feet) 80 Assistive Devices Assistive Device Gait Belt 4 Wheeled Walker Gait Deviations General Gait Pattern Decreased Stride Length Decreased Feet Clearance Factors Limiting Gait Function Factors Limiting Gait Function Decreased Sensation Decreased Strength Comments Gait Comments O2 on RA with ambulation 91-89 % M5 PT-IP Objective Assessments Start: 10/30/17 11:33 Freq: Status: Active Protocol: Document 10/30/17 11:30 [facility] (Rec: 10/30/17 11:57 [facility] [id number]) Orientation Orientation/Cognition Level of Alertness Alert Strength Comments Strength Comments BLE grossly 3+/5 Coordination Assessment Assessment Heel on Zayas Test Minimal Impairment Coordination Comments slow movement with heel to zayas, L>R difficulty (L heel to R zayas greater difficulty) M7 PT-IP Assessment and Plan Start: 10/30/17 11:33 Freq: Status: Active Protocol: Document 10/30/17 14:20 [facility] (Rec: 10/30/17 14:26 [facility] [id number]) PT Summary Assessment and Plan Summary Assessment Summary Pt was safe with ambulation with 4WW. She had no LOB with gait. He O2 did decrease to 89 % with gait. She does use 4WW at home at times. Frequency of Treatment Frequency Of Treatment Twice a Day Recommendations To Nursing Amount of Assist Needed 1 Person Assist Discharge Recommendations PT Discharge Recommendations Home with Assistance Home Health
--- NOTE | 2017-10-30 15:43 | OT.IP.EVAL ---
Past Medical History (Last Updated 10/29/17 @ 17:05 by Wiley Dupree MD) Non Hodgkin's lymphoma (Resolved) Hyperlipidemia (Acute) Hypertension (Acute) Hypothyroidism (Acute) Macular degeneration (Acute) Retinal artery occlusion (Acute) Surgical History (Last Reviewed 10/29/17 @ 19:18 by Kike Medina MD) History of cataract removal with insertion of prosthetic lens Status post cholecystectomy Occupational Therapy Inpatient Evaluation/Re-Eval M1 PT/OT-IP Prior Functional Status Start: 10/30/17 11:33 Freq: Status: Active Protocol: Document 10/30/17 11:30 [facility] (Rec: 10/30/17 11:57 [facility] [id number]) Medical Review Prior Functional Status Medical History Reviewed Yes Communication WNL Mobility and Gait indep. community gait without device Activities of Daily Living and IADL's indep. I/ADLs- driving during the day only. Social History Household Members none Living Arrangements House Number of Floors (Floors) Two Floors Number of Stairs To Enter/Railing? no steps, but does need to manage stairs for laundry room Home Environment Standard Height Toilet Home Equipment Front Wheel Walker Additional Social History Comment walk-in tub for bathing. Pt reports she has a lot of friend support in her area. M1 PT/OT-IP Prior Functional Status Start: 10/30/17 15:21 Freq: NEEDED Status: Active Protocol: Document 10/30/17 15:24 [facility] (Rec: 10/30/17 15:42 [facility] [id number]) Medical Review Prior Functional Status Medical History Reviewed Yes Communication WNL Mobility and Gait indep. community gait without device Activities of Daily Living and IADL's indep. I/ADLs- driving during the day only. Social History Household Members none Living Arrangements House Number of Floors (Floors) Two Floors Number of Stairs To Enter/Railing? no steps, but does need to manage stairs for laundry room Home Environment Standard Height Toilet Home Equipment Front Wheel Walker Four Wheel Walker Additional Social History Comment walk-in tub for bathing. Pt reports she has a lot of friend support in her area. M2 OT-IP Current Condition Start: 10/30/17 15:21 Freq: Status: Active Protocol: Document 10/30/17 15:24 [facility] (Rec: 10/30/17 15:42 [facility] [id number]) Occupational Therapy Current Condition Current Condition Evaluation Date 10/30/17 Treatment Diagnosis decreased balance and visual changes Diagnosis Onset Date 10/29/17 M3 OT- IP Subjective and Pain Start: 10/30/17 15:21 Freq: Status: Active Protocol: Document 10/30/17 15:24 [facility] (Rec: 10/30/17 15:42 [facility] [id number]) OT- Subjective Occupational Therapy Visit Type Type Initial Evaluation Visit Start Time 13:50 Visit Stop Time 14:35 Total Visit Minutes 45 Occupational Therapy Visit Comments Patient/Caregiver Goals Pt wanting to go home today but after Ot eval wanting to stay in the hospital. OT Pain Assessment Pain When Pain Assessed At Rest Pain Present Pain Present Denied Pain M4 OT- IP ADL's Start: 10/30/17 15:21 Freq: Status: Active Protocol: Document 10/30/17 15:24 [facility] (Rec: 10/30/17 15:42 [facility] [id number]) OT ADL-Toileting General Evaluation Toileting Ability Standby Assistance Comments OT Toileting Comments Pt states holds to frye or use of FWW to get to the bathroom and refuses to have BSC in the bedroom. OT ADL-Bathing Comments OT Bathing Comments Pt not wanting to shower at this time and prefers her walk in tub. M5 OT- IP IADL's Start: 10/30/17 15:21 Freq: Status: Active Protocol: Document 10/30/17 15:24 [facility] (Rec: 10/30/17 15:42 [facility] [id number]) OT-Instrumental Activities of Daily Living Home Safety Awareness Awareness of Need for Assistance at Home Decreased Awareness Ability to Problem Solve Emergency Unable to Problem Solve Situations Home Safety Comments Pt needing vc to identify 911, pt not will to use BSC in the bedroom. Medication Management Medication Management Comments Pt states does her own. Money Management Money Management Comments Pt states does her own. Meal Preparation Meal Preparation Comments Pt states at home get tired while cooking , suggested to have assist or use 4WW to sit on to rest. Driving Driving Concerns Identified Regarding Safety M6 OT- IP Functional Cognition Start: 10/30/17 15:21 Freq: Status: Active Protocol: Document 10/30/17 15:24 [facility] (Rec: 10/30/17 15:42 [facility] [id number]) Cognitive Factors Limiting Selfcare Function Cognitive Ability Level of Alertness Alert Patient Orientation Name Place Situation Attention Span Ability Capable of Focused Attention Unable to Sustain Attention Ability to Follow Commands Able to Follow One Step Commands Memory Description Short Term Impaired Working Impaired Safety Awareness Underestimates Need for Assistance Problem Solving Ability Needs Assist to Identify Solutions Executive Function Ability Unable to Organize Plans Unable to Remember Details Cognitive Comments Cognitive Assessment Comments Per [employer] a score of 180 sec or more on [place] Making B implies that more likelihood of someone getting into a car accident. [place] Making B test executive function, visuo- conceptual function, and visuo mototr tracking and attention . Pt scored 300sec and needing MOD vc to remember the instructions throughout the task. 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 Pt does states prior only drove during the daytime. M7 OT- IP Mobility and Balance Start: 10/30/17 15:21 Freq: Status: Active Protocol: Document 10/30/17 15:24 [facility] (Rec: 10/30/17 15:42 [facility] [id number]) OT-Transfer Assessment Sit to and From Stand Sit to and from Stand Contact Guard Assistance Transfers Transfer Ability Contact Guard Assistance Technique Transfer Destination Chair Transfer Technique Stand Step Pivot Devices Transfer Assistive Devices Gait Belt 4 Wheeled Walker Comments Mobility Comments Pt needing CGA for balanec and assist to manage IV pole. Pt O2 level dropped to 89% without O2, if pt to have O2 tubing at home would increase her fall risk. Pt states has fallen in the past and gets dizzy when bendingn over. Pt also takes care of dog at home. OT- Balance Assessment Sitting Balance and Reactions Static Sitting Balance Ability Normal Dynamic Sitting Balance Ability Normal Standing Balance and Reactions Static Standing Balance Ability Fair M8 OT- IP Objective Assessments Start: 10/30/17 15:21 Freq: Status: Active Protocol: Document 10/30/17 15:24 [facility] (Rec: 10/30/17 15:42 [facility] [id number]) OT Strength Comments Strength Comments Decreased strength and coordination due to peripheral neuropathy. Per pt unable to hold cane properly to place as she tends to trip over it. OT-Muscle Tone Assessment Muscle Tone WNL Yes M9 OT- IP Assessment and Plan Start: 10/30/17 15:21 Freq: Status: Active Protocol: Document 10/30/17 15:24 [facility] (Rec: 10/30/17 15:42 [facility] [id number]) OT Summary Assessment and Plan Potential Rehabilitation Potential Good Analytic Complexity at Evaluation Low Summary OT Impairments Strength Balance Coordination Functional Cognition Functional Mobility Dressing Toileting Bathing Toilet Transfers Shower Transfers Progress Towards Goals Slow Progress due to Medical Issues Slow Progress due to Cognition Assessment Summary Pt low complexity main barrier is activity tolerance, safety awareness, and decreased vision Goals Self-Feeding Goal Independent Grooming Goal Independent Dressing Goal Standby Assistance Toileting Goal Independent Bathing Goal Standby Assistance Toilet Transfer Goal Independent Shower Transfer Goal Standby Assistance Patient/Caregiver Education Goal Demonstrate Energy Conservation and Pacing Caregiver Independent Assisting Patient Days to Meet Goals 7 Frequency of Treatment Frequency Of Treatment Once a Day Treatment Plan OT Treatment Plan ADL Training Functional Cognition Training Functional Mobility Patient/Family Education Discharge Planning Other Treatment Recommendations and Next Showering, energy conservation Treatment Focus , safety awareness Discharge Recommendations OT Discharge Recommendations Home with Assistance Home Health vs SNF Home Equipment Needs [facility]
--- NOTE | 2017-10-30 19:04 | PM.PN.1 ---
Subjective Date Patient Seen: 10/30/17 Time Patient Seen: 14:04 Interval history: History of present illness Patient admitted to the hospital with suspected cerebellar infarct. Patient also had a newly described left eye visual field deficit noted by clinic physician director during a routine follow-up exam in a.m. on October 29. Review of systems Patient notes that she is mobilizing from the bed without needing assistance. She certainly understands how to use a front wheel walker. The nursing staff indicate that patient does have the ability to be self-sufficient using the front wheel walker. This is also noted by the physical therapist. Patient denies having any chest pain or shortness of breath nausea fevers or chills Exam Vital Signs (past 8 hours): - 10/30/17 12:11 10/30/17 14:14 10/30/17 15:35 Temperature 98.6 F 99.7 F H Pulse Rate 80 79 Respiratory Rate 16 18 Blood Pressure 133/96 H 142/74 H Pulse Oximetry 92 94 96 10/30/17 16:09 10/30/17 16:28 Temperature Pulse Rate Respiratory Rate Blood Pressure Pulse Oximetry 93 94 Oxygen Delivery Method Nasal Cannula Oxygen Flow Rate 2 Narrative Exam Narrative: General appearance Patient is not awake and alert in no apparent distress Psychiatric She is well oriented to time place and person mood is pleasant affect is appropriate Respiratory Clear to auscultation good airflow no wheezes no crackles Cardiovascular Regular in rate and rhythm no murmur rubs or gallops pulses +3 to extremities Gastrointestinal Soft nontender positive bowel sounds no bruits no guarding Neurologic No change in clinical presentation since I saw her yesterday. There is still a problem with what appears to be cerebellar dysfunction. Cranial nerve 2-12 grossly unchanged compared to yesterday. Skin No rashes or lesions nonjaundiced age-appropriate skin presentation Objective Labs Result Diagrams: 10/30/17 05:47 10/30/17 05:47 Labs: Laboratory Results - last 24 hr 10/30/17 10/30/17 05:47 05:47 WBC 11.7 H RBC 4.43 Hgb 13.6 Hct 40.2 MCV 90.8 MCH 30.7 MCHC 33.8 RDW 14.7 Plt Count 144 L Neut % (Auto) 79.2 H Lymph % (Auto) 13.1 L [place]ountain % (Auto) 6.4 Eos % (Auto) 0.9 L Baso % (Auto) 0.4 Neut # (Auto) 9200 H Sodium 132 L Potassium 3.8 Chloride 99 Carbon Dioxide 29 BUN 12 Creatinine 0.40 L Estimated GFR > 60.0 BUN/Creatinine Ratio 30.0 H Glucose 93 Calcium 8.7 Total Bilirubin 0.7 AST 21 ALT 22 Alkaline Phosphatase 76 Total Protein 5.7 L Albumin 3.4 L Globulin 2.3 Albumin/Globulin Ratio 1.5 Assessment & Plan Plan: Assessment/Plan Narrative: 1. 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 An MRI of the brain without contrast reports extensive chronic microvascular changes. I did discuss this with the patient at bedside.. Yesterday changed patient's statin from simvastatin to Lipitor at 40 mg at bedtime. I continued the aspirin daily that she normally takes prior to admission and the proton pump inhibitor medication as a GI protective measure. 2. Visual field deficit Patient did not notice this deficit prior to her ophthalmology appointment that was scheduled every 3 months and she was seeing Dr. miller her clinic physician director this morning. Dr. Miller noted the left eye with a visual field deficit to the right. As noted in my exam I could not elicit that visual field deficit. In speaking to Dr. miller by telephone, she notes the the newly perceived visual field deficit of the right eye would have been difficult to identify on exam. Dr. miller also notes that it would be difficult to ascertain when patient may have developed this visual field deficit. It was not noted on the ophthalmology exam 3 months ago. Patient did not recognize any new deficit to her vision over the past 3 months. note an MRI of the brain is to be done without contrast. 3. Smoking addiction Yesterday I had a very lengthy conversation with the patient at bedside regarding her smoker addiction history. Patient appeared to be quite receptive. Patient has successfully abstained from smoking with her friend in support. They are in agreement that would both like to stop and neck and also stop for each other which appears to be an added measure of reason for each of them to consider cessation of smoking. Nicotine patch as needed 4. Epigastric pain and tenderness Il provided a proton pump inhibitor. Zofran as needed for what appears to be a mild nausea. 5. Polyuria Urine for urinalysis culture if indicated is requested. Note patient with elevated WBC count in the ER. This could be stress related. Repeat labs in a.m. noted the WBC is trending downward without antibiotic coverage. Discharge planning I requested for respiratory therapy to assess the patient while she is ambulating with an oxygen titration trial. We need to establish if she might require oxygen while she is ambulating. The physical therapist noted that she got short of breath while walking about 40 ft. Physical therapy notes that patient could be discharged to home with the walker. She does have a dear friend that lives below her that could certainly check on her easily enough. She does have steps to go to the laundry room. Patient has several friends that have volunteered to help with her laundry so that she does not have to negotiate any stairs at this time. I can hopefully discharge the patient tomorrow in a.m. if respiratory therapy determined switch her oxygen need is well she ambulates. Hopefully she can walk safely at room air tomorrow. Time Spent With Patient Time with patient: Greater than 35 minutes Quality VTE Deep Vein Thrombosis/Pulmonary Embolism Present on Admission: No
[2017-10-30] MEDS: MELATONIN 3 MG TABLET 9 MG PO (20:42)
[2017-10-30] MEDS: AMITRIPTYLINE 25 MG TABLET PO (20:43)
[2017-10-30] MEDS: ATORVASTATIN 20 MG TABLET 40 MG PO (20:43)
[2017-10-31] VITALS (8 sets, daily range): BP systolic 115–140; BP diastolic 59–67; PULSE 79–86; RESP 16–20; TEMP 36.4–37.2; O2SAT 2–95
--- NOTE | 2017-10-31 02:07 | PC.NURSE ---
Pt is AxOx3.Bed alarm on. Patient took off oxygen to go to bathroom without calling. On room air pt was at 81% after going to the bathroom, sats did not go back up. 2L NC reapplied and now back up to 95%. SOB/TAVARES
[2017-10-31] MEDS: LEVOTHYROXINE 75 MCG TABLET PO (03:55)
[2017-10-31] MEDS: POLYETHYLENE GLYCOL 3350 17 GM POWD.PACK PO (09:57)
[2017-10-31] MEDS: METOPROLOL 12.5 MG TABLET PO (09:58)
[2017-10-31] MEDS: ENOXAPARIN 40 MG/0.4 ML SYRINGE SUBCUT (09:58)
[2017-10-31] MEDS: ASPIRIN EC 325 MG TABLET PO (09:58)
[2017-10-31] MEDS: GABAPENTIN 300 MG CAPSULE PO (09:58)
[2017-10-31] MEDS: CHOLECALCIFEROL (VITAMIN D3) 1,000 UNIT TABLET 1000 UNIT PO (09:58)
[2017-10-31] MEDS: MULTIVITAMIN 1 TABLET 1 TAB PO (09:58)
--- NOTE | 2017-10-31 11:55 | PT.IPTN ---
Physical Therapy Treatment Note M2 PT-IP Current Condition Start: 10/30/17 11:33 Freq: Status: Active Protocol: Document 10/30/17 11:30 RCC (Rec: 10/30/17 11:57 RCC [id number]) Physical Therapy Current Condition Current Condition Evaluation Date 10/30/17 Treatment Diagnosis impaired mobility and activity tolerance, visual changes Onset Date 10/26/17 M3 PT-IP Subjective Start: 10/30/17 11:33 Freq: Status: Active Protocol: Document 10/31/17 10:30 CLB (Rec: 10/31/17 11:55 CLB [id number]) Subjective Physical Therapy Visit Type Type Treatment Note Visit Start Time 10:30 Visit Stop Time 10:40 Total Visit Minutes 10 Number of MANAGER FLIGHT Visits 2 Physical Therapy Visit Comments Patient Comments Pt willing to work with PT and RT for co-treat. Therapy Pain Assessment Pain Present Pain Present Denied Pain M4 PT-IP Mobility and Gait Start: 10/30/17 11:33 Freq: Status: Active Protocol: Document 10/31/17 10:30 CLB (Rec: 10/31/17 11:55 CLB [id number]) PT-Transfer Assessment Sit to and From Stand Sit to and from Stand Standby Assistance Equipment Transfer Assistive Device Gait Belt 4 Wheeled Walker Transfers Transfer Destination Chair Transfer Ability Level of Assist Standby Assistance Gait Assessment Gait Gait Assistance Required: Standby Assistance Distance (Feet) (feet) 150 Assistive Devices Assistive Device Gait Belt 4 Wheeled Walker Gait Deviations General Gait Pattern Decreased Stride Length Decreased Feet Clearance Factors Limiting Gait Function Factors Limiting Gait Function Decreased Sensation Decreased Strength Comments Gait Comments cough present only at end of gait. Active O2 on RA 88% after 60ft. RT increased O2 to 2L, O2 increased to 92% after ambulating ~75ft. M5 PT-IP Objective Assessments Start: 10/30/17 11:33 Freq: Status: Active Protocol: Document 10/30/17 11:30 RCC (Rec: 10/30/17 11:57 RCC [id number]) Orientation Orientation/Cognition Level of Alertness Alert Strength Comments Strength Comments BLE grossly 3+/5 Coordination Assessment Assessment Heel on Zayas Test Minimal Impairment Coordination Comments slow movement with heel to zayas, L>R difficulty (L heel to R zayas greater difficulty) M7 PT-IP Assessment and Plan Start: 10/30/17 11:33 Freq: Status: Active Protocol: Document 10/31/17 10:30 CLB (Rec: 10/31/17 11:55 CLB [id number]) PT Summary Assessment and Plan Summary Assessment Summary Pt is safe with ambulation with 4WW having no LOB with gait. Pt seems able to d/c home when medically stable. Goals Bed Mobility Goal Standby Assistance Transfer Goal Standby Assistance Gait Goal Standby Assistance Gait Distance 150 Days to Meet Goals 2 Frequency of Treatment Frequency Of Treatment Twice a Day Recommendations To Nursing Amount of Assist Needed 1 Person Assist Discharge Recommendations PT Discharge Recommendations Home with Assistance Home Health Equipment Needed for Home Before HH PT and OT recommended Discharge
--- NOTE | 2017-10-31 12:01 | PC.NURSE ---
Pt did trial walk with O2 off. Sats down to 88. Pt to go home with oxygen and wear it during the days and at night. She is comfortable in chair now and sleeping. Daughter at bedside now.
--- NOTE | 2017-10-31 15:18 | CM.DANOTE ---
Discharge Planning/Care Management CM Discharge Assessment Start: 10/31/17 15:13 Freq: Status: Discharge Protocol: Document 10/31/17 15:13 (Rec: 10/31/17 15:18 [id number]) Discharge Planning Assessment Assigned Spool Sorter DIRECTOR OF TRAUMA Advance Directives? Yes Advance Directives on File No History Provided By Patient Medical Record Prior Living Arrangements House Household Members none Type of transporation used prior to Drives own vehicle admit Comment Drives only during day. Independent with ADL's Yes Is patient alert and oriented? Yes Community Services used prior to Oxygen Therapy admission: Comment O2 at night. Patient/Family Preference Home with Home Health Discharge Plan Home with Home Health Community Services Oxygen Therapy Physical Therapy Occupational Therapy Transportation Arrangement Daughter to provide transportation home. Referrals Initiated Home Health Additional Comment HH referral made to [facility]. If patient plan is home with home health Yes : Has signed face to face form been completed? Medicare Choice List Provided Yes SNF/HH Preference 1. [facility]. [facility] 3. Will not use [facility]. Contact Name/Phone [facility] Whiteboard Updated in Patient Room with Yes name and ext. # of Spool Sorter Review Status In Process Next Review Date 10/31/17 Next Review Type Continued Stay Review Met with patient: Per MD patient to discharge home with HH/PT and OT and increased home O2. F2F complete. Patient agreeable to discharge plan. Provided patient with Medicare choice list: 1)[facility] but refuses to work with [facility]. Called [facility]: able to accept an [place] client. Faxed referral for review. Plan: Patient to discharge home today with daughter transporting. [facility] referral sent. SW to follow up if [facility] able to accept patient.
--- NOTE | 2017-10-31 22:54 | PM.DS.1 ---
History of Present Illness Date Patient Seen: 10/31/17 Time Patient Seen: 17:54 Chief complaint: CHEST PAIN Narrative: Patient is a 77 years of age female that notes she had quite a remarkable change in her dizziness and imbalance in the past 24 hr. Patient notes that in the past 24 hr the symptoms were much more severe. Patient notes that she was scheduled to have a visit with her cullet trucker which is normally every 3 months or so. Patient with a history of retinal artery occlusion in 1995. The patient's cullet trucker Dr. miller note that patient had a visual field deficit of the left eye on the right mid visual field. Patient did not notice any change in her field of vision prior to this visit. ER physician notes the patient was sent to the ER for further evaluation due to the visual field deficit noted by the cullet trucker. Patient's previous ophthalmology visit was a few months ago and this visual field deficit was not noted then. Based upon history provided it would be difficult to ascertain when patient actually had this visual field deficit occur. Patient is a continued chronic smoker. She is certainly at risk for repeat occurrence of occlusive artery disease. What appears to be also quite worrisome is this imbalance problem that appears to be much more notable to the patient. Patient had a failed finger to nose appointing as well as heel-zayas pointing all suggestive of cerebellum deficit. Patient has no prior history of cerebellar stroke. Patient also notes having epigastric discomfort and tenderness. Discharge Providers Date of admission: 10/29/17 13:36 Primary care physician: Sofia Christie PA-C Consults: 10/29/17 15:45 Consult to Signal Worker Routine Comment: inpt to obs status 10/29/17 16:53 Consult to Occupational Therapy Evaluate & Treat Comment: Physician Instructions: Evaluate and treat Consult to Physical Therapy Evaluate & Treat Comment: Physician Instructions: Evaluate and Treat 10/30/17 14:46 Consult to Respiratory Therapy Evaluate & Treat Comment: SOULEYMANE for oxygen titration trial in [facility] Physician Instructions: Evaluate and treat 10/31/17 15:23 Consult to Home Health Routine Comment: Reason For Exam: HH/PT and OT Discharge provider: Wiley Dupree MD Summary Discharge Diagnosis: 1. 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 Cerebellar symptoms secondary to 1. This includes mild gait disturbance and abnormal finger nose pointing. 3. Left eye visual field deficit new since last ophthalmology exam several months ago suspected secondary to 1. 4. Severe COPD now requiring portable oxygen supplement. 4. Active cigarette smoker prior to admission Hospital Course: Patient is a 77 years of age female that presents to the ER as directed by her cullet trucker. None during my exam on admission I could not elicit the field deficit of the left eye. In speaking to Dr. miller the patient's cullet trucker I learned that was the right mid field region of the left eye that was found to be defective compared to her ophthalmology exam of patient's several months ago. Patient also appeared to have pronounced cerebellar symptoms that had not been noted in the past to the same degree. Her balance appeared to be worse than usual. Patient had difficulty with finger-nose pointing with either hand. Patient was ambulated by respiratory therapy who noted that she requires 2 L of nasal cannula oxygen in order to sustain an adequate pulse ox during the walk. Physical therapist noted patient got winded without the oxygen when he was attempting to ambulate the patient. With oxygen patient certainly did much better. Patient was deemed to be safe for discharge to home by Physical therapy since the patient had a close friend that lived on the floor below and could provide the support needed. Status at Discharge Cognitive/behavioral status at discharge: Awake and alert in no apparent distress well oriented mood is pleasant cooperative affect is appropriate Functional status at discharge: independent ambulation Overall status at discharge: patient is progressing back to baseline Time Spent with Patient Greater than 30 minutes (40 min) Exam Vital Signs (past 8 hours): Oxygen Delivery Method Nasal Cannula Oxygen Flow Rate 2 Narrative Exam Narrative: Awake and alert no apparent distress well oriented Respiratory was fair air movement bilaterally no significant wheezes or crackles Cardiovascular regular in rate and rhythm no murmurs GI is benign and soft nontender Neurologic no lateralizing neurologic changes. Continued cerebellar symptoms as noted. Objective Labs Result Diagrams: 10/30/17 05:47 10/30/17 05:47 Discharge Plan Discharge Plan Patient Disposition: Home Health Service Discharge comment: HOME HEALTH PT AND OT. patient to be provided oxygen for portable use at 2 LPM while ambulating and use the oxygen concentrator at 1 to 1.5 LPM oxygen while sitting in chair. Provider Discharge Instructions Diet: Diet as Tolerated and Regular Other treatments: home oxygen support added on as follow: portable oxygen tanks at 2 LPM oxygen rate while walking. Oxygen concentrator at 1 to 1.5 LPM flow while in seated position. Note patient already on nocturnal oxygen via Oxygen concentrator at 2 LPM while sleeping. Skin/Wound/Dressing Care Report to your healthcare provider any signs of infection, such as:: chills, fever, night sweats, increased pain and unusual drainage Discharge Data Primary Care Provider: Sofia Christie Attending Provider: Wiley Dupree Admit Date/Time: 10/29/17 13:36 Discharges patient from system. Discharge Date/Time: 10/31/17 14:00 Quality VTE Deep Vein Thrombosis/Pulmonary Embolism Present on Admission: No
--- NOTE | 2017-10-31 23:03 | P.DS_ITS ---
History of Present Illness Date Patient Seen: 10/31/17 Time Patient Seen: 17:54 Chief complaint: CHEST PAIN Narrative: Patient is a 77 years of age female that notes she had quite a remarkable change in her dizziness and imbalance in the past 24 hr. Patient notes that in the past 24 hr the symptoms were much more severe. Patient notes that she was scheduled to have a visit with her hr representative which is normally every 3 months or so. Patient with a history of retinal artery occlusion in 1995. The patient's hr representative Dr. miller note that patient had a visual field deficit of the left eye on the right mid visual field. Patient did not notice any change in her field of vision prior to this visit. ER physician notes the patient was sent to the ER for further evaluation due to the visual field deficit noted by the hr representative. Patient's previous ophthalmology visit was a few months ago and this visual field deficit was not noted then. Based upon history provided it would be difficult to ascertain when patient actually had this visual field deficit occur. Patient is a continued chronic smoker. She is certainly at risk for repeat occurrence of occlusive artery disease. What appears to be also quite worrisome is this imbalance problem that appears to be much more notable to the patient. Patient had a failed finger to nose appointing as well as heel-zayas pointing all suggestive of cerebellum deficit. Patient has no prior history of cerebellar stroke. Patient also notes having epigastric discomfort and tenderness. Discharge Providers Date of admission: 10/29/17 13:36 Primary care physician: oSfia Christie PA-C Consults: 10/29/17 15:45 Consult to Program Director Air Talent Routine Comment: inpt to obs status 10/29/17 16:53 Consult to Occupational Therapy Evaluate & Treat Comment: Physician Instructions: Evaluate and treat Consult to Physical Therapy Evaluate & Treat Comment: Physician Instructions: Evaluate and Treat 10/30/17 14:46 Consult to Respiratory Therapy Evaluate & Treat Comment: SOULEYMANE for oxygen titration trial in [facility] Physician Instructions: Evaluate and treat 10/31/17 15:23 Consult to Home Health Routine Comment: Reason For Exam: HH/PT and OT Discharge provider: Wiley Dupree MD Summary Discharge Diagnosis: 1. 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 Cerebellar symptoms secondary to 1. This includes mild gait disturbance and abnormal finger nose pointing. 3. Left eye visual field deficit new since last ophthalmology exam several months ago suspected secondary to 1. 4. Severe COPD now requiring portable oxygen supplement. 4. Active cigarette smoker prior to admission Hospital Course: Patient is a 77 years of age female that presents to the ER as directed by her hr representative. None during my exam on admission I could not elicit the field deficit of the left eye. In speaking to Dr. miller the patient' s hr representative I learned that was the right mid field region of the left eye that was found to be defective compared to her ophthalmology exam of patient's several months ago. Patient also appeared to have pronounced cerebellar symptoms that had not been noted in the past to the same degree. Her balance appeared to be worse than usual. Patient had difficulty with finger-nose pointing with either hand. Patient was ambulated by respiratory therapy who noted that she requires 2 L of nasal cannula oxygen in order to sustain an adequate pulse ox during the walk. Physical therapist noted patient got winded without the oxygen when he was attempting to ambulate the patient. With oxygen patient certainly did much better. Patient was deemed to be safe for discharge to home by Physical therapy since the patient had a close friend that lived on the floor below and could provide the support needed. Status at Discharge Cognitive/behavioral status at discharge: Awake and alert in no apparent distress well oriented mood is pleasant cooperative affect is appropriate Functional status at discharge: independent ambulation Overall status at discharge: patient is progressing back to baseline Time Spent with Patient Greater than 30 minutes (40 min) Exam Vital Signs (past 8 hours): Oxygen Delivery Method Nasal Cannula Oxygen Flow Rate 2 Narrative Exam Narrative: Awake and alert no apparent distress well oriented Respiratory was fair air movement bilaterally no significant wheezes or crackles Cardiovascular regular in rate and rhythm no murmurs GI is benign and soft nontender Neurologic no lateralizing neurologic changes. Continued cerebellar symptoms as noted. Objective Labs Result Diagrams: 10/30/17 05:47 10/30/17 05:47 Discharge Plan Discharge Plan Patient Disposition: Home Health Service Discharge comment: HOME HEALTH PT AND OT. patient to be provided oxygen for portable use at 2 LPM while ambulating and use the oxygen concentrator at 1 to 1.5 LPM oxygen while sitting in chair. Provider Discharge Instructions Diet: Diet as Tolerated and Regular Other treatments: home oxygen support added on as follow: portable oxygen tanks at 2 LPM oxygen rate while walking. Oxygen concentrator at 1 to 1.5 LPM flow while in seated position. Note patient already on nocturnal oxygen via Oxygen concentrator at 2 LPM while sleeping. Skin/Wound/Dressing Care Report to your healthcare provider any signs of infection, such as:: chills, fever, night sweats, increased pain and unusual drainage Discharge Data Primary Care Provider: Sofia Christie Attending Provider: Wiley Dupree Admit Date/Time: 10/29/17 13:36 Discharges patient from system. Discharge Date/Time: 10/31/17 14:00 Quality VTE Deep Vein Thrombosis/Pulmonary Embolism Present on Admission: No
== END 2017-10-31 14:00 | disposition home health service (06) | DRG 149 ==
LOC: ED 11:47 → AC 13:36
PROVIDERS: Admitting Provider Internal Medicine; Emergency Provider Emergency Medicine; Family Provider Physician Assistant; PCP Physician Assistant; Visit Provider Internal Medicine
DX: R42 Dizziness and giddiness (principal); H53.9 Unspecified visual disturbance; F17.210 Nicotine dependence, cigarettes, uncomplicated; R10.13 Epigastric pain; J44.9 Chronic obstructive pulmonary disease, unspecified; I10 Essential (primary) hypertension; E78.5 Hyperlipidemia, unspecified; E03.9 Hypothyroidism, unspecified; H35.30 Unspecified macular degeneration; R26.9 Unspecified abnormalities of gait and mobility
CPT/HCPCS: 36415; 36591; 70450; 70551; 71045; 80053; 81003; 81015; 82550; 82553; 83690; 84484; 85025; 87086; 93005; 94618; 94760; 96360; 96361; 97116; 97162; 97165; 97530; 99283; 99285; 99406; J1650

== ENCOUNTER 2017-11-01 19:29 | Inpatient (IN) | payer MEDICARE, OTHER, SELFPAY ==
[2017-11-01] VITALS (10 sets, daily range): BP systolic 117–162; BP diastolic 60–78; PULSE 99–113; RESP 18–33; TEMP 36.4–39; O2SAT 89–98; BMI 22.3; BMI 23.8
--- NOTE | 2017-11-01 19:31 | ED.SOB ---
HPI - SOB/Dyspnea General Chief Complaint: Shortness of Breath/Dyspnea Stated Complaint: Shortness of Breath Time Seen by Provider: 11/01/17 19:33 Source: EMS Mode of arrival: EMS History of Present Illness Patient is a 77-year-old female presenting with increasing shortness of breath and fever. She was discharged yesterday after being admitted for a CVA. She does have a history of COPD as and has been needing oxygen at night however EMS found her with oxygen and 70%. She is noted to be febrile here at 102? F She says she is having increased productive cough. She is feeling better after the the initial DuoNeb started by EMS. She denies any chest pain or heart palpitations. She overall feels weak. MD Complaint: shortness of breath and cough Related Data Home Medications Medication Instructions Recorded Confirmed cholecalciferol (vitamin D3) 1,000 unit PO QDAY #0 07/29/12 11/01/17 [Vitamin D3] multivitamin [Multiple Vitamins] 1 tab PO QDAY #0 01/01/17 11/01/17 PreserVision AREDS 1 tab PO BID 10/29/17 11/01/17 aspirin 81 mg PO QPM 10/29/17 11/01/17 cyclosporine 1 drp OPHTHALMIC (EYE) DIRECTED 10/29/17 11/01/17 levothyroxine 1 tab PO DAILY 10/29/17 11/01/17 melatonin 10 mg PO BEDTIME 10/29/17 11/01/17 metoprolol tartrate 12.5 mg PO BID 10/29/17 11/01/17 polyethylene glycol 3350 17 gm PO DAILY 10/29/17 11/01/17 Previous Rx's Medication Instructions Recorded gabapentin 300 mg capsule 300 - 600 mg PO TID #360 cap 09/20/17 albuterol sulfate 1.25 mg INHALATION QID PRN #90 ml 10/31/17 albuterol sulfate 2 puff INHALATION Q6H PRN #8.5 gram 10/31/17 fluticasone-salmeterol [Advair 1 inhalation INHALATION BID #60 10/31/17 Diskus] each nebulizer accessories #1 each 10/31/17 nebulizers #1 each 10/31/17 rosuvastatin 20 mg PO DAILY #30 tab 10/31/17 trazodone 50 mg PO BEDTIME #30 tab 10/31/17 umeclidinium [Incruse Ellipta] 1 inhalation INHALATION DAILY #30 10/31/17 each Allergies Allergy/AdvReac Type Severity Reaction Status Date / Time ampicillin [AMPICILLIN] Allergy Severe BLOODY Verified 11/01/17 19:37 DIARRHEA Iodinated Contrast- Oral and Allergy Severe ANAPHYLAXIS Verified 11/01/17 19:37 IV Dye [IODINATED CONTRAST MEDIA - IV DYE] oxycodone [OXYCODONE] Allergy Intermediate MAKES ME Verified 11/01/17 19:37 MEAN, CHANGE OF PERSONALITY adhesive [ADHESIVE] Allergy Mild REDNESS Verified 11/01/17 19:37 clindamycin [CLINDAMYCIN] Allergy Unknown PATIENT Verified 11/01/17 19:37 CAN'T REMEMBER Review of Systems Review of Systems All systems reviewed & are unremarkable except as noted in HPI and below Constitutional Reports body ache(s), Reports fatigue and Reports fever(s) Eyes Denies blurry vision, Denies diplopia and Denies irritation ENT Ears, Nose, Mouth, and Throat: Denies change in voice, Denies neck pain and Denies sore throat Cardiovascular Denies chest pain, Denies irregular heart rhythm, Denies lightheadedness, Denies palpitations and Denies orthopnea Respiratory Reports as per HPI Gastrointestinal Gastrointestinal: Denies abdominal pain, Denies change in bowel habits, Denies diarrhea, Denies nausea and Denies vomiting Musculoskeletal Denies neck pain Integumentary/Breasts Denies pruritus, Denies erythema, Denies rash and Denies wounds Neurologic Reports as per HPI, Denies confusion and Denies focal weakness Psychiatric Denies confusion Endocrine Reports fatigue and Denies palpitations PFSH Medical History Non Hodgkin's lymphoma (Resolved) Acute CVA (cerebrovascular accident) (Acute) Osteoarthritis (07/23/10) 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) Chronic obstructive pulmonary disease Current smoker (05/17/12) Raynaud's disease (05/17/12) History of aortic valve replacement with bioprosthetic valve (10/23/10) Hyperlipidemia (Acute) Hypertension (Acute) Hypothyroidism (Acute) Macular degeneration (Acute) Retinal artery occlusion (Acute) Surgical History History of cataract removal with insertion of prosthetic lens Status post cholecystectomy Social History Smoking Status: Current every day smoker Exam Initial Vital Signs Initial Vital Signs: Vital Signs Temperature 102.2 F H 11/01/17 19:34 Pulse Rate 113 H 11/01/17 19:34 Respiratory Rate 28 H 11/01/17 19:34 Blood Pressure 162/70 H 11/01/17 19:34 Pulse Oximetry 89 L 11/01/17 19:34 Const General: cooperative and acute distress (Tachypneic) Orientation: alert, awake and oriented x3 HENMT Head: normal to inspection and normocephalic Eyes General: appearance normal, both eyes and all related structures Neck Neck: normal visual inspection, full ROM, no meningeal signs and No JVD Chest Chest: normal inspection of the chest Resp Effort & Inspection: uses accessory muscles Auscultation: rales on the right and wheezes Cardio Rate: regular rate Rhythm: regular rhythm Heart Sounds: S1 normal, S2 normal and murmur GI Palpation: soft, No firm, No guarding and No tender Auscultation: normal bowel sounds Skin General: no rashes or lesions noted, No jaundice and No petechiae Neuro General: alert, awake and oriented x3 Cranial Nerves: CN's II-XI intact bilaterally Course Orders Ordered: ED Orders 11/01/17 19:34 Consult to Respiratory Therapy Evaluate & Treat EKG-12 Lead Stat 11/01/17 19:45 B Type Natriuretic Peptide Stat Complete Blood Count AUTO DIFF Stat Comprehensive Metabolic Panel Stat Lactate (Lactic Acid) Stat Magnesium Stat Procalcitonin Stat Troponin & CK Cardiac Panel Stat 11/01/17 20:18 XR chest 1V Stat 11/01/17 20:26 Blood Culture Stat 11/01/17 21:15 Urinalysis and Microscopic Stat 11/01/17 22:03 RT Consult Eval and Treat Now 11/01/17 22:08 EC echo doppler complete Urgent 11/01/17 22:31 Arterial Blood Gas Stat 11/01/17 22:35 Sputum Culture Routine 11/01/17 22:44 MRSA PCR Stat 11/01/17 22:55 Consult to Dietitian, Adult Routine Acetaminophen (Tylenol) 650 mg PO Q6HR PRN PRN Reason: As Needed for Fever/Mild Pain Albuterol (Ventolin) 2.5 mg INH [id number] PRN PRN Reason: Cough Albuterol/Ipratropium (Duoneb) 3 ml INH Q6H COUNTS INCLUDE 234 BEDS AT THE [facility] Last Admin: 11/01/17 23:36 Dose: Not Given Aspirin (Aspirin Ec) 81 mg PO QPM COUNTS INCLUDE 234 BEDS AT THE [facility] Bisacodyl (Dulcolax) 10 mg NV DAILY PRN PRN Reason: Constipation Enoxaparin Sodium (Lovenox) 40 mg SUBCUT DAILY COUNTS INCLUDE 234 BEDS AT THE [facility] Gabapentin (Neurontin) 300 mg PO TID COUNTS INCLUDE 234 BEDS AT THE [facility] Last Admin: 11/02/17 01:01 Dose: 300 mg Levofloxacin (Levaquin) 750 mg in 150 mls @ 100 mls/hr IV Q24H COUNTS INCLUDE 234 BEDS AT THE [facility] Levothyroxine Sodium (Synthroid) 75 mcg PO DAILY COUNTS INCLUDE 234 BEDS AT THE [facility] Magnesium Hydroxide (Milk Of Magnesia) 30 ml PO BID PRN PRN Reason: constipation Methylprednisolone (Solu-Medrol 125 Mg Vial) 60 mg IV BID COUNTS INCLUDE 234 BEDS AT THE [facility] Metoprolol Tartrate (Lopressor) 12.5 mg PO BID COUNTS INCLUDE 234 BEDS AT THE [facility] Nortriptyline HCl (Pamelor) 25 mg PO BEDTIME COUNTS INCLUDE 234 BEDS AT THE [facility] Polyethylene Glycol (Miralax) 17 gm PO DAILY COUNTS INCLUDE 234 BEDS AT THE [facility] Rosuvastatin Calcium (Crestor) 20 mg PO DAILY COUNTS INCLUDE 234 BEDS AT THE [facility] Trazodone HCl (Desyrel) 50 mg PO BEDTIME COUNTS INCLUDE 234 BEDS AT THE [facility] Last Admin: 11/02/17 01:03 Dose: 50 mg Discontinued Medications Acetaminophen (Tylenol) 650 mg PO NOW ONE Stop: 11/01/17 19:45 Last Admin: 11/01/17 19:58 Dose: 650 mg Albuterol/Ipratropium (Duoneb) 3 ml INH NOW ONE Stop: 11/01/17 19:35 Last Admin: 11/01/17 20:00 Dose: 3 ml Furosemide (Lasix) 40 mg IV NOW ONE Stop: 11/01/17 20:49 Last Admin: 11/01/17 21:39 Dose: 40 mg Levofloxacin (Levaquin) 750 mg in 150 mls @ 100 mls/hr IV NOW ONE Stop: 11/01/17 21:12 Last Infusion: 11/01/17 21:40 Dose: 0 mls/hr Admin: 11/01/17 19:58 Dose: 100 mls/hr Sodium Chloride (Normal Saline 0.9%) 1,000 mls @ 150 mls/hr IV CONT COUNTS INCLUDE 234 BEDS AT THE [facility] Last Infusion: 11/01/17 21:45 Dose: 0 mls/hr Admin: 11/01/17 19:58 Dose: 150 mls/hr Methylprednisolone (Solu-Medrol 125 Mg Vial) 125 mg IV NOW ONE Stop: 11/01/17 19:35 Last Admin: 11/01/17 19:59 Dose: 125 mg Ondansetron HCl (Zofran) 4 mg IV NOW ONE Stop: 11/01/17 20:09 Last Admin: 11/01/17 20:09 Dose: 4 mg Vital Signs - 8 hr 11/01/17 19:58 11/01/17 21:01 11/01/17 21:30 Temperature 102.2 F H Pulse Rate 104 H 109 H Respiratory Rate 26 H 26 H Blood Pressure Blood Pressure [Left Arm] 134/61 H 134/61 H Pulse Oximetry 91 93 11/01/17 21:37 11/01/17 21:39 11/01/17 22:07 Temperature 100.0 F H 100.0 F H Pulse Rate 101 H Respiratory Rate 18 Blood Pressure Blood Pressure [Left Arm] 118/60 Pulse Oximetry 11/01/17 23:26 11/02/17 01:00 11/02/17 02:00 Temperature 97.6 F Pulse Rate 99 H 97 H 97 H Respiratory Rate 23 22 Blood Pressure 117/60 118/71 107/51 L Blood Pressure [Left Arm] Pulse Oximetry 98 96 99 11/02/17 03:00 Temperature Pulse Rate 104 H Respiratory Rate 14 Blood Pressure 124/49 H Blood Pressure [Left Arm] Pulse Oximetry 97 MDM - SOB/Dyspnea Differential Diagnosis Likely congestive heart failure, community acquired pneumonia (Healthcare acquired pneumonia) and pulmonary embolism Medical Records Attestation: I reviewed the patient's medical records. Lab Data Attestation: I reviewed the patient's lab results. Result diagrams: 11/01/17 19:45 11/01/17 19:45 Lab Results 11/01/17 11/01/17 11/01/17 Range/Units 19:45 19:45 19:45 WBC 9.0 (4.5-11.0) X10^3/uL RBC 4.50 (4.0-5.2) X10^6/uL Hgb 13.9 (12.0-16.0) g/dL Hct 40.7 (36-46) % MCV 90.4 (80-100) fL MCH 31.0 (26-34) PG MCHC 34.3 (30-36) % RDW 14.2 (11.6-14.8) % Plt Count 180 (150-400) X10^3/uL Neut % (Auto) 80.6 H (50-75) % Lymph % (Auto) 10.6 L (25-40) % Caldwell % (Auto) 8.1 (3-14) % Eos % (Auto) 0.3 L (2-4) % Baso % (Auto) 0.4 (0-2) % Neut # (Auto) 7200 H (3468-6925) /uL ABG pH (7.35-7.45) ABG pCO2 (35-45) mmHg ABG pO2 (80-105) mmHg ABG HCO3 (23-27) mmol/L ABG Total CO2 (23-27) mmol/L ABG O2 Saturation (95-100) % ABG Base Excess (-2-3) mmol/L FiO2 Sodium 132 L (137-145) mmol/L Potassium 3.6 (3.4-5.1) mmol/L Chloride 91 L (98-107) mmol/L Carbon Dioxide 32 (22-32) mmol/L BUN 10 (7-17) mg/dL Creatinine 0.40 L (0.52-1.04) mg/dL Estimated GFR > 60.0 (>60) mL/min BUN/Creatinine Ratio 25.0 H (6-22) Glucose 107 (80-110) mg/dL Lactate (0.7-2.1) mmol/L Calcium 9.2 (8.4-10.2) mg/dL Magnesium 1.8 (1.6-2.3) mg/dL Total Bilirubin 1.0 (0.2-1.3) mg/dL AST 55 H (14-36) IU/L ALT 42 (9-52) IU/L Alkaline Phosphatase 135 H D (38-126) U/L Total Creatine Kinase 133 (30-135) U/L CK-MB (CK-2) 0.47 (<2.37) ng/mL CK-MB (CK-2) Rel Index 0.4 L (1.5-5.0) % Troponin I < 0.012 (0.01-0.034) ng/mL B-Natriuretic Peptide 547.0 H (<100) Total Protein 6.5 (6.3-8.2) g/dL Albumin 3.6 (3.5-5.0) g/dL Globulin 2.9 (1.7-4.1) g/dL Albumin/Globulin Ratio 1.2 (1.0-2.8) Procalcitonin 0.11 (<0.5) ng/mL Urine Color Urine Appearance Urine pH (4.5-8.0) Ur Specific Concrete (1.000-1.035) Urine Protein (Negative) Urine Glucose (UA) (Normal) g/dL Urine Ketones (NEGATIVE) Urine Occult Blood (Negative) Urine Nitrate (Negative) Urine Bilirubin (NEGATIVE) Urine Urobilinogen (0.2) E.U./dL Ur Leukocyte Esterase (NEGATIVE) Urine RBC (0-5/HPF) Urine WBC (0-5/HPF) Ur Squamous Epith Cells Urine Bacteria (None) Hyaline Casts (None) Granular Casts (None) Urine Mucus (Negative) Ur Culture Indicated? Micro UA Comment Nasal Screen MRSA (PCR) (Negative) 11/01/17 11/01/17 11/01/17 Range/Units 19:45 21:15 22:31 WBC (4.5-11.0) X10^3/uL RBC (4.0-5.2) X10^6/uL Hgb (12.0-16.0) g/dL Hct (36-46) % MCV (80-100) fL MCH (26-34) PG MCHC (30-36) % RDW (11.6-14.8) % Plt Count (150-400) X10^3/uL Neut % (Auto) (50-75) % Lymph % (Auto) (25-40) % Caldwell % (Auto) (3-14) % Eos % (Auto) (2-4) % Baso % (Auto) (0-2) % Neut # (Auto) (4403-7721) /uL ABG pH 7.42 (7.35-7.45) ABG pCO2 43.4 (35-45) mmHg ABG pO2 60 L (80-105) mmHg ABG HCO3 28 H (23-27) mmol/L ABG Total CO2 29 H (23-27) mmol/L ABG O2 Saturation 91 L (95-100) % ABG Base Excess 3.0 (-2-3) mmol/L FiO2 0.50 Sodium (137-145) mmol/L Potassium (3.4-5.1) mmol/L Chloride (98-107) mmol/L Carbon Dioxide (22-32) mmol/L BUN (7-17) mg/dL Creatinine (0.52-1.04) mg/dL Estimated GFR (>60) mL/min BUN/Creatinine Ratio (6-22) Glucose (80-110) mg/dL Lactate 1.2 (0.7-2.1) mmol/L Calcium (8.4-10.2) mg/dL Magnesium (1.6-2.3) mg/dL Total Bilirubin (0.2-1.3) mg/dL AST (14-36) IU/L ALT (9-52) IU/L Alkaline Phosphatase (38-126) U/L Total Creatine Kinase (30-135) U/L CK-MB (CK-2) (<2.37) ng/mL CK-MB (CK-2) Rel Index (1.5-5.0) % Troponin I (0.01-0.034) ng/mL B-Natriuretic Peptide (<100) Total Protein (6.3-8.2) g/dL Albumin (3.5-5.0) g/dL Globulin (1.7-4.1) g/dL Albumin/Globulin Ratio (1.0-2.8) Procalcitonin (<0.5) ng/mL Urine Color Dark yellow Urine Appearance Clear Urine pH 6.5 (4.5-8.0) Ur Specific Concrete 1.020 (1.000-1.035) Urine Protein 2+ H (Negative) Urine Glucose (UA) Negative (Normal) g/dL Urine Ketones 2+ H (NEGATIVE) Urine Occult Blood 1+ H (Negative) Urine Nitrate Negative (Negative) Urine Bilirubin Negative (NEGATIVE) Urine Urobilinogen 4.0 H (0.2) E.U./dL Ur Leukocyte Esterase Negative (NEGATIVE) Urine RBC 10-30/hpf H (0-5/HPF) Urine WBC 1-5/hpf (0-5/HPF) Ur Squamous Epith Cells 1-5 /hpf Urine Bacteria Few (2-10) H (None) Hyaline Casts 0-1/lpf (None) Granular Casts 0-1/lpf (None) Urine Mucus 2+ H (Negative) Ur Culture Indicated? Cult not indicated Micro UA Comment Not Reportable Nasal Screen MRSA (PCR) (Negative) 11/01/17 Range/Units 22:44 WBC (4.5-11.0) X10^3/uL RBC (4.0-5.2) X10^6/uL Hgb (12.0-16.0) g/dL Hct (36-46) % MCV (80-100) fL MCH (26-34) PG MCHC (30-36) % RDW (11.6-14.8) % Plt Count (150-400) X10^3/uL Neut % (Auto) (50-75) % Lymph % (Auto) (25-40) % Caldwell % (Auto) (3-14) % Eos % (Auto) (2-4) % Baso % (Auto) (0-2) % Neut # (Auto) (4591-7661) /uL ABG pH (7.35-7.45) ABG pCO2 (35-45) mmHg ABG pO2 (80-105) mmHg ABG HCO3 (23-27) mmol/L ABG Total CO2 (23-27) mmol/L ABG O2 Saturation (95-100) % ABG Base Excess (-2-3) mmol/L FiO2 Sodium (137-145) mmol/L Potassium (3.4-5.1) mmol/L Chloride (98-107) mmol/L Carbon Dioxide (22-32) mmol/L BUN (7-17) mg/dL Creatinine (0.52-1.04) mg/dL Estimated GFR (>60) mL/min BUN/Creatinine Ratio (6-22) Glucose (80-110) mg/dL Lactate (0.7-2.1) mmol/L Calcium (8.4-10.2) mg/dL Magnesium (1.6-2.3) mg/dL Total Bilirubin (0.2-1.3) mg/dL AST (14-36) IU/L ALT (9-52) IU/L Alkaline Phosphatase (38-126) U/L Total Creatine Kinase (30-135) U/L CK-MB (CK-2) (<2.37) ng/mL CK-MB (CK-2) Rel Index (1.5-5.0) % Troponin I (0.01-0.034) ng/mL B-Natriuretic Peptide (<100) Total Protein (6.3-8.2) g/dL Albumin (3.5-5.0) g/dL Globulin (1.7-4.1) g/dL Albumin/Globulin Ratio (1.0-2.8) Procalcitonin (<0.5) ng/mL Urine Color Urine Appearance Urine pH (4.5-8.0) Ur Specific Concrete (1.000-1.035) Urine Protein (Negative) Urine Glucose (UA) (Normal) g/dL Urine Ketones (NEGATIVE) Urine Occult Blood (Negative) Urine Nitrate (Negative) Urine Bilirubin (NEGATIVE) Urine Urobilinogen (0.2) E.U./dL Ur Leukocyte Esterase (NEGATIVE) Urine RBC (0-5/HPF) Urine WBC (0-5/HPF) Ur Squamous Epith Cells Urine Bacteria (None) Hyaline Casts (None) Granular Casts (None) Urine Mucus (Negative) Ur Culture Indicated? Micro UA Comment Nasal Screen MRSA (PCR) Negative for mrsa (Negative) Imaging Data Chest x-ray: Attestation: I personally reviewed and interpreted this imaging study as follows: Radiologist's impression: PROCEDURE: XR CHEST 1V INDICATIONS: short of breath TECHNIQUE: One view of the chest was acquired. COMPARISON: [facility], , XR CHEST 1V, 10/29/2017, 11:33. FINDINGS: Surgical changes and devices: Sternal wires. Lungs and pleura: Diffuse increased pulmonary vascularity with slight increased focal opacities within the right middle and lower lobe increased compared to prior exam. Mild bilateral pleural effusions are present, right greater than left also increased compared to prior exam. Mediastinum: Mediastinal contours appear normal. Heart size is normal. Bones and chest wall: No suspicious bony lesions. Overlying soft tissues appear unremarkable. IMPRESSION: Increased vascularity as above suggestive of edema as well as trace effusions. Focal opacities are noted in the right middle and lower lobe suggestive of either focal edema or developing airspace disease such as pneumonia and/or atelectasis. Dictated by: Cesia Arias M.D. on 11/01/2017 at 20:38 ECG Data Attestation: I personally reviewed and interpreted this ECG as follows: Prior ECG tracings: available for review Interpretation: Sinus tachycardia rate [address] changes, T-wave inversions noted in V2 new from previous MDM Narrative Medical decision making narrative: Patient is covered with vancomycin and Levaquin for hospital-acquired organisms. She does have some [id number] respiratory distress. IV Lasix is given. Differential includes pulmonary embolism. She does have fever with increased pulmonary edema on x-ray. I discussed this with the accepting physician is at this time no CT for pulmonary embolism. She was antibiotics and Lasix. Dr. Alvarez has been updated on symptoms and test results. He has been seen to evaluate patient recommends ICU admission. Discharge Plan Departure Patient Disposition: Admitted As Inpatient Clinical Impression: Pneumonia Discharge Date/Time: 11/01/17 22:27 Interventions: ED Discharge Assessment Last Done: 11/01/17 22:27 Admit Date/Time: 11/01/17 20:49 Admit Provider: Rashad Alvarez
[2017-11-01] MEDS: levoFLOXacin 750 MG/150 ML PIGGYBACK 100 MG IV (19:58)
[2017-11-01] MEDS: ACETAMINOPHEN 325 MG TABLET 650 MG PO (19:58)
[2017-11-01] MEDS: SODIUM CHLORIDE 0.9% 1,000 ML 150 ML IV (19:58)
[2017-11-01 19:59] LABS: Add Manual Diff / Slide Review NO; Basophils Percent Auto 0.4 % (0-2); Eosinophils Percent Auto 0.3 % (2-4); Hematocrit 40.7 % (36-46); Hemoglobin 13.9 g/dL (12.0-16.0); Lymphocytes Percent Auto 10.6 % (25-40); Mean Corpuscular HGB Conc 34.3 % (30-36); Mean Corpuscular Volume 90.4 fL (80-100); Monocytes Percent Auto 8.1 % (3-14); Neutrophils Absolute Auto 7200 /uL (3000-5900); Neutrophils Percent Auto 80.6 % (50-75); Platelet Count 180 X10^3/uL (150-400); Red Cell Distribution Width 14.2 % (11.6-14.8)
[2017-11-01] MEDS: methylPREDNISolone 125 MG/2 ML VIAL IV (19:59)
[2017-11-01] MEDS: ALBUTEROL/IPRATROPIUM 3 ML AMPUL INH (20:00)
[2017-11-01] MEDS: ONDANSETRON 4 MG/2 ML INJ IV (20:09)
[2017-11-01 20:15] LABS: Lactate (Lactic Acid) 1.2 mmol/L (0.7-2.1)
[2017-11-01 20:16] LABS: Alanine Aminotransferase 42 IU/L (9-52); Albumin 3.6 g/dL (3.5-5.0); Albumin Globulin Ratio 1.2 (1.0-2.8); Alkaline Phosphatase 135 U/L (38-126); Aspartate Aminotransferase 55 IU/L (14-36); Blood Urea Nitrogen 10 mg/dL (7-17); Calcium 9.2 mg/dL (8.4-10.2); Carbon Dioxide 32 mmol/L (22-32); Chloride 91 mmol/L (98-107); Creatine Kinase 133 U/L (30-135); Estimated Glomerular Filt Rate > 60.0 mL/min (>60); Globulin 2.9 g/dL (1.7-4.1); Glucose 107 mg/dL (80-110); HEMOLYSIS < 15 (0-50); Magnesium 1.8 mg/dL (1.6-2.3); Potassium 3.6 mmol/L (3.4-5.1); Sodium 132 mmol/L (137-145); Total Protein 6.5 g/dL (6.3-8.2)
--- NOTE | 2017-11-01 20:18 | DI.RAD.S_ITS ---
PROCEDURE: XR CHEST 1V INDICATIONS: short of breath TECHNIQUE: One view of the chest was acquired. COMPARISON: [facility], CR, XR CHEST 1V, 10/29/2017, 11:33. FINDINGS: Surgical changes and devices: Sternal wires. Lungs and pleura: Diffuse increased pulmonary vascularity with slight increased focal opacities within the right middle and lower lobe increased compared to prior exam. Mild bilateral pleural effusions are present, right greater than left also increased compared to prior exam. Mediastinum: Mediastinal contours appear normal. Heart size is normal. Bones and chest wall: No suspicious bony lesions. Overlying soft tissues appear unremarkable. IMPRESSION: Increased vascularity as above suggestive of edema as well as trace effusions. Focal opacities are noted in the right middle and lower lobe suggestive of either focal edema or developing airspace disease such as pneumonia and/or atelectasis. Dictated by: Cesia Arias M.D. on 11/01/2017 at 20:38 Approved by: Cesia Arias M.D. on 11/01/2017 at 20:39
[2017-11-01 20:32] LABS: CKMB % Relative Index 0.4 % (1.5-5.0); Creatine Kinase MB 0.47 ng/mL (<2.37)
[2017-11-01 20:33] LABS: Procalcitonin 0.11 ng/mL (<0.5); Troponin I < 0.012 ng/mL (0.01-0.034)
[2017-11-01 21:24] LABS: Glucose Urine UA NEGATIVE (Normal); Ketones Urine UA 2+ (NEGATIVE); Leukocyte Esterase Urine UA NEGATIVE (NEGATIVE); Nitrite Urine UA Negative (Negative); Occult Blood Urine UA 1+ (Negative); Protein Urine UA 2+ (Negative); pH Urine UA 6.5 (4.5-8.0)
[2017-11-01 21:31] LABS: Color Urine UA Dark Yellow
[2017-11-01 21:36] LABS: Bilirubin Urine UA Negative (NEGATIVE); RBC Urine 10-30/HPF (0-5/HPF)
[2017-11-01 21:37] LABS: Bacteria Urine Few (2-10); Hyaline Casts Urine 0-1/LPF; Mucus Urine 2+ (Negative); Squamous Epithelial Cell Urine 1-5 /HPF; WBC Urine 1-5/HPF (0-5/HPF)
[2017-11-01 21:38] LABS: Appearance Urine UA Clear; Granular Casts Urine 0-1/LPF
[2017-11-01 21:39] LABS: Culture Indicated Urine Cult Not Indicated
[2017-11-01] MEDS: FUROSEMIDE 40 MG/4 ML VIAL IV (21:39)
--- NOTE | 2017-11-01 22:08 | DI.ECHO.S_ITS ---
[facility]---------+ [facility] +---------+ : : [address] [place] : : : : [id number] : : : : Phone: [phone] Echocardiogram Report + + :Name: ASH HDEZ Study Date: 11/02/2017 Height: 64 in : :[facility] Weight: 139 lb : : Gender: Female BSA: 1.7 m2 : :: 1940 Age: 77 yrs BP: 104/59 mmHg: :Reason For Study: SOB : : Performed By: Lesli Nieto : :Referring: VICKY CRABTREE : + + Interpretation Summary Borderline concentric left ventricular hypertrophy with ejection fraction 60- 65%. Grade I diastolic dysfunction. Moderately dilated left atrium. 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 Mild mitral annular calcification. Mild to moderate mitral regurgitation. Mild tricuspid regurgitation. The right ventricular systolic pressure is estimated at 54 mmHg assuming a right atrial pressure of 3 mm Hg. Moderate pulmonary hypertension. Procedure: A two-dimensional transthoracic echocardiogram with color flow and Doppler was performed. The study quality was technically adequate. Comparison is made with the echocardiogram of 11-16-12. The patient was in normal sinus rhythm during the exam. Left Ventricle: There is borderline concentric left ventricular hypertrophy. The ejection fraction is estimated to be 60-65%. There are no focal wall motion abnormalities. Assessment of diastolic parameters indicates a relaxation abnormality of the left ventricle, consistent with normal filling pressures. Right Ventricle: The right ventricle grossly appears normal in size with probable normal systolic function. Atria: The left atrium is moderately dilated. Right atrial size is normal. The interatrial septum is intact with no evidence for an atrial septal defect. Mitral Valve: The mitral valve leaflets appear mildly thickened, but open well. There is mild mitral annular calcification. There is mild to moderate mitral regurgitation. Aortic Valve: There is a bioprosthetic aortic valve. The prosthetic aortic valve is well-seated. No aortic regurgitation is present. Tricuspid Valve: The tricuspid valve leaflets are thin and pliable. There is mild tricuspid regurgitation. The right ventricular systolic pressure is estimated at 54 mmHg assuming a right atrial pressure of 3 mm Hg. There is moderate pulmonary hypertension. Pulmonic Valve: The pulmonic valve is not well seen, but is grossly normal. There is mild pulmonic regurgitation. Great Vessels: The aortic root is normal size. The ascending aorta could not be visualized. The aortic arch is normal in size. The IVC is of normal diameter and collapses greater than 50% with a sniff. This suggests a low right atrial pressure of 3 mm Hg. Pericardium/ Pleura There is no pericardial effusion. There is no pleural effusion. MMode/2D Measurements & Calculations LVIDd: 3.9 cm LVOT diam: 2.0 cm LVIDs: 2.4 cm Ao root diam: 3.5 cm FS: 36.7 % Aortic Jxn: 2.7 cm EPSS: 0.98 cm Ao Arch Diam (Prox Trans): 2.5 cm IVSd: 1.1 cm LVPWd: 0.97 cm LV bradshaw. diameter/BSA (cm/m^2): 2.3 LV sys. diameter/BSA (cm/m^2): 1.5 LA dimension: 3.6 cm RA long axis: 4.6 cm LA A2 area: 24.3 cm2 RA area: 14.0 cm2 LA A4 area: 21.9 cm2 RA vol: 36.7 ml LA length (vol): 5.4 cm RA : 21.9 ml/m2 LA vol: 83.4 ml IVC diam: 1.8 cm LA vol index: 49.8 ml/m2 RVDd major: 4.9 cm RVD1 (basal): 3.8 cm RVD2 (mid): 3.2 cm Doppler Measurements & Calculations Ao V2 max: 242.2 cm/sec LVOT Max Kevin: 92.8 cm/sec Ao V2 mean: 165.2 cm/sec LV V1 max P.4 mmHg Ao max P.5 mmHg LV V1 VTI: 22.8 cm Ao mean P.6 mmHg ASHLEY(I,D): 1.4 cm2 Ao V2 VTI: 51.3 cm ASHLEY(V,D): 1.2 cm2 sev ratio: 0.44 ASHLEY indexed to BSA (cm^2/m^2): 0.84 MV E max kevin: 133.2 cm/sec TR max kevin: 357.8 cm/sec MV A max kevin: 121.8 cm/sec TR max P.2 mmHg MV E/A: 1.1 PA V2 max: 90.9 cm/sec Med Peak E' Kevin: 2.4 cm/sec PA V2 mean: 60.5 cm/sec E/E' med: 55.0 PA mean P.7 mmHg Lat Peak E' Kevin: 4.8 cm/sec PA Accel Time: 0.12 sec E/E' lat: 27.5 E/e' average: 41.3 MV dec time: 0.24 sec MV P1/2t: 69.9 msec MR ERO: 0.09 cm2 MV P1/2t max kevin: 133.3 cm/sec MR flow rate: 53.4 cm3/sec MVA(2t): 3.1 cm2 MR PISA radius: 0.47 cm Electronically signed by: Adelaida Bello on Reading Physician:11/02/2017 05:31 PM
--- NOTE | 2017-11-01 22:15 | PM.HP.1 ---
History of Present Illness Date Patient Seen: 11/01/17 Time Patient Seen: 22:15 Chief complaint: Shortness of Breath Narrative: Patient is a 77-year-old female who presented to the emergency department via ambulance transport due to fever, worsening cough and shortness of breath. O2 sat was in the 70s prior to ER. Temp was 102.2?. She is currently on 50% O2 via Venturi mask with sats in the low 90s. She was just released from the hospital yesterday after admission for probable acute stroke. She had presented with acute dizziness with cerebellar signs and new visual field deficit. Brain MRI showed chronic extensive microvascular disease. Patient notes that she had a terrible cough during last admission. She states the cough started a couple of weeks ago and recently much worse. She was evaluated for the cough which was thought secondary to COPD. Her chest x-ray on 10/29/2017 did not show pneumonia or other acute findings. 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 She was already on nocturnal home O2. She denies history of CHF or coronary artery disease. Patient has history of bioprosthetic bovine aortic valve in 2013 and at that time had benign growth removed as well. Current complaints are severe cough, shortness of breath, headache from coughing, fever and chills. 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) Chronic obstructive pulmonary disease Current smoker (05/17/12) Raynaud's disease (05/17/12) History of aortic valve replacement with bioprosthetic valve (10/23/10) Hyperlipidemia (Acute) Hypertension (Acute) Hypothyroidism (Acute) Macular degeneration (Acute) Retinal artery occlusion (Acute) Family & Social History Social History: household members none Safety & Behavioral: Feels Safe in Current Yes Environment Been Physically Hurt or No Threatened By a Person Tobacco & Substance use: Tobacco type cigarettes Smoking Status Current every day smoker alcohol intake frequency 0-2 drinks per day Substance Use Type does not use Meds Home Medications Medication Instructions Recorded Confirmed Type cholecalciferol (vitamin D3) 1,000 unit PO QDAY #0 07/29/12 10/29/17 History [Vitamin D3] multivitamin [Multiple Vitamins] 1 tab PO QDAY #0 01/01/17 10/29/17 History gabapentin 300 mg capsule 300 - 600 mg PO TID #360 cap 09/20/17 10/29/17 Rx PreserVision AREDS 1 tab PO BID 10/29/17 10/29/17 History aspirin 81 mg PO QPM 10/29/17 10/29/17 History cyclosporine 1 drp OPHTHALMIC (EYE) DIRECTED 10/29/17 10/29/17 History levothyroxine 1 tab PO DAILY 10/29/17 10/29/17 History melatonin 10 mg PO BEDTIME 10/29/17 10/29/17 History metoprolol tartrate 12.5 mg PO BID 10/29/17 10/29/17 History polyethylene glycol 3350 17 gm PO DAILY 10/29/17 10/29/17 History albuterol sulfate 1.25 mg INHALATION QID PRN #90 ml 10/31/17 Rx albuterol sulfate 2 puff INHALATION Q6H PRN #8.5 gram 10/31/17 Rx fluticasone-salmeterol [Advair 1 inhalation INHALATION BID #60 10/31/17 Rx Diskus] each nebulizer accessories #1 each 10/31/17 Rx nebulizers #1 each 10/31/17 Rx nortriptyline 25 mg PO BEDTIME #30 cap 10/31/17 Rx rosuvastatin 20 mg PO DAILY #30 tab 10/31/17 Rx trazodone 50 mg PO BEDTIME #30 tab 10/31/17 Rx umeclidinium [Incruse Ellipta] 1 inhalation INHALATION DAILY #30 10/31/17 Rx each Allergies Allergy/AdvReac Type Severity Reaction Status Date / Time ampicillin [AMPICILLIN] Allergy Severe BLOODY Verified 11/01/17 19:37 DIARRHEA Iodinated Contrast- Oral and Allergy Severe ANAPHYLAXIS Verified 11/01/17 19:37 IV Dye [IODINATED CONTRAST MEDIA - IV DYE] oxycodone [OXYCODONE] Allergy Intermediate MAKES ME Verified 11/01/17 19:37 MEAN, CHANGE OF PERSONALITY adhesive [ADHESIVE] Allergy Mild REDNESS Verified 11/01/17 19:37 clindamycin [CLINDAMYCIN] Allergy Unknown PATIENT Verified 11/01/17 19:37 CAN'T REMEMBER Review of Systems Review of Systems All systems reviewed & are unremarkable except as noted in HPI and below Exam Vital Signs (past 8 hours): - 11/01/17 19:34 11/01/17 19:53 11/01/17 19:58 Temperature 102.2 F H 102.2 F H Pulse Rate 113 H 104 H Respiratory Rate 28 H 32 H Blood Pressure 162/70 H Blood Pressure [Left Arm] 158/78 H Pulse Oximetry 89 L 91 11/01/17 21:01 11/01/17 21:30 11/01/17 21:37 Temperature 100.0 F H Pulse Rate 104 H 109 H Respiratory Rate 26 H 26 H Blood Pressure Blood Pressure [Left Arm] 134/61 H 134/61 H Pulse Oximetry 91 93 11/01/17 21:39 11/01/17 22:07 Temperature 100.0 F H Pulse Rate 101 H Respiratory Rate 18 Blood Pressure Blood Pressure [Left Arm] 118/60 Pulse Oximetry Oxygen Delivery Method Venturi Mask Oxygen Flow Rate 15 Narrative Exam Narrative: GENERAL: Alert cooperative thin elderly female with cough and labored breathing HEAD: Atraumatic. Normocephalic. EYES: Pupils equal, round and reactive. Extraocular motions intact. No scleral icterus. No injection or drainage. OROPHARYNX: Dry oral mucosa, upper and lower dentures noted NECK: Trachea midline. No JVD or lymphadenopathy. CARDIOVASCULAR: Normal S1 and S2, tachycardic with regular rhythm, 3/6 systolic murmur heard throughout RESPIRATORY: Using accessory muscles to breathe, diminished in bases, bilateral lower lobe rhonchi GASTROINTESTINAL: Abdomen nondistended, soft, non-tender. No hepato-splenomegaly, or palpable masses. EXTREMITIES: No pretibial edema. NEUROLOGICAL: Alert, well oriented, speech is intact, no pronator drift, generally weak but able to raise either leg against gravity equally well SKIN: warm, dry, no rash Objective Imaging Chest x-ray: My impression: My interpretation a portable chest x-ray is right middle lobe and right lower lobe infiltrate, mild bilateral pleural effusions right greater than left, mild increased bilateral pulmonary vascularity possibly edema Radiologist's impression: PROCEDURE: XR CHEST 1V INDICATIONS: short of breath TECHNIQUE: One view of the chest was acquired. COMPARISON: [facility], CR, XR CHEST 1V, 10/29/2017, 11:33. FINDINGS: Surgical changes and devices: Sternal wires. Lungs and pleura: Diffuse increased pulmonary vascularity with slight increased focal opacities within the right middle and lower lobe increased compared to prior exam. Mild bilateral pleural effusions are present, right greater than left also increased compared to prior exam. Mediastinum: Mediastinal contours appear normal. Heart size is normal. Bones and chest wall: No suspicious bony lesions. Overlying soft tissues appear unremarkable. IMPRESSION: Increased vascularity as above suggestive of edema as well as trace effusions. Focal opacities are noted in the right middle and lower lobe suggestive of either focal edema or developing airspace disease such as pneumonia and/or atelectasis. Dictated by: Cesia Arias M.D. on 11/01/2017 at 20:38 Approved by: Cesia Arias M.D. on 11/01/2017 at 20:39 ECG: My interpretation: Sinus tachycardia, left atrial enlargement, normal intervals and axis, no acute change Labs Result Diagrams: 11/01/17 19:45 11/01/17 19:45 Labs: Laboratory Results - last 24 hr 11/01/17 11/01/17 11/01/17 19:45 19:45 19:45 WBC 9.0 RBC 4.50 Hgb 13.9 Hct 40.7 MCV 90.4 MCH 31.0 MCHC 34.3 RDW 14.2 Plt Count 180 Neut % (Auto) 80.6 H Lymph % (Auto) 10.6 L Randolph % (Auto) 8.1 Eos % (Auto) 0.3 L Baso % (Auto) 0.4 Neut # (Auto) 7200 H Sodium 132 L Potassium 3.6 Chloride 91 L Carbon Dioxide 32 BUN 10 Creatinine 0.40 L Estimated GFR > 60.0 BUN/Creatinine Ratio 25.0 H Glucose 107 Lactate Calcium 9.2 Magnesium 1.8 Total Bilirubin 1.0 AST 55 H ALT 42 Alkaline Phosphatase 135 H D Total Creatine Kinase 133 CK-MB (CK-2) 0.47 CK-MB (CK-2) Rel Index 0.4 L Troponin I < 0.012 B-Natriuretic Peptide 547.0 H Total Protein 6.5 Albumin 3.6 Globulin 2.9 Albumin/Globulin Ratio 1.2 Procalcitonin 0.11 Urine Color Urine Appearance Urine pH Ur Specific Combs Urine Protein Urine Glucose (UA) Urine Ketones Urine Occult Blood Urine Nitrate Urine Bilirubin Urine Urobilinogen Ur Leukocyte Esterase Urine RBC Urine WBC Ur Squamous Epith Cells Urine Bacteria Hyaline Casts Granular Casts Urine Mucus Ur Culture Indicated? Micro UA Comment 11/01/17 11/01/17 19:45 21:15 WBC RBC Hgb Hct MCV MCH MCHC RDW Plt Count Neut % (Auto) Lymph % (Auto) Randolph % (Auto) Eos % (Auto) Baso % (Auto) Neut # (Auto) Sodium Potassium Chloride Carbon Dioxide BUN Creatinine Estimated GFR BUN/Creatinine Ratio Glucose Lactate 1.2 Calcium Magnesium Total Bilirubin AST ALT Alkaline Phosphatase Total Creatine Kinase CK-MB (CK-2) CK-MB (CK-2) Rel Index Troponin I B-Natriuretic Peptide Total Protein Albumin Globulin Albumin/Globulin Ratio Procalcitonin Urine Color Dark yellow Urine Appearance Clear Urine pH 6.5 Ur Specific Combs 1.020 Urine Protein 2+ H Urine Glucose (UA) Negative Urine Ketones 2+ H Urine Occult Blood 1+ H Urine Nitrate Negative Urine Bilirubin Negative Urine Urobilinogen 4.0 H Ur Leukocyte Esterase Negative Urine RBC 10-30/hpf H Urine WBC 1-5/hpf Ur Squamous Epith Cells 1-5 /hpf Urine Bacteria Few (2-10) H Hyaline Casts 0-1/lpf Granular Casts 0-1/lpf Urine Mucus 2+ H Ur Culture Indicated? Cult not indicated Micro UA Comment Not Reportable Assessment & Plan Plan: Assessment/Plan Narrative: 1. Acute hypoxic respiratory failure. Patient presents with labored breathing, sats in the mid 70s, with evidence of pneumonia on x-ray. She received initial treatment with IV antibiotic, Solu-Medrol, Lasix and being treated in ICU. Currently on 50% Venti mask. Plan: Obtain ABG. RT consult. Nebulizers. Treat underlying cause. Patient is at risk for further deterioration requiring intubation and ventilatory management. 2. Bacterial pneumonia. Patient presents with cough, high fever and right lung infiltrates. Clinically she has pneumonia. However WBC and procalcitonin normal. Lactate normal. Blood cultures obtained in the ED. Plan: Continue Levaquin 750 mg IV daily. Sputum culture. 3. COPD exacerbation. She has significant rhonchi on exam. Received IV steroid in ED. Plan: Solu-Medrol 60 mg IV b.i.d., schedule DuoNeb, albuterol nebulizers as needed. 4. Possible acute congestive heart failure. Patient has BNP above 500, pulmonary vascular redistribution and small pleural effusions on chest x-ray. She does not have known prior history of CHF. This is unlikely as primary cause of respiratory failure which is better explained by pneumonia. Received 1 dose IV Lasix in ED. Plan: Obtain transthoracic echo. 5. Recent likely acute stroke. Continue low-dose aspirin, rosuvastatin, metoprolol per home routine. 6. Cigarette dependence. Brief counseling provided to quit smoking. 7. DVT prophylaxis. Ordered low-dose Lovenox. 8. Code status. Patient would want intubation and short-term mechanical ventilation but does not want CPR. She does not want long-term mechanical ventilation. Reviewed at bedside with patient and daughter present during discussion. 9. Disposition. Admit to ICU. Patient meets criteria for critical illness due to severe acute respiratory failure with high risk of further deterioration. Total time of approximately 70 min was spent in critical care management services.
[2017-11-01 23:03] LABS: PCO2 ABG 43.4 mmHg (35-45); pH ABG 7.42 (7.35-7.45)
[2017-11-01 23:04] LABS: HCO3 ABG 28 mmol/L (23-27); Oxygen Saturation ABG 91 % (95-100); PO2 ABG 60 mmHg (80-105); TCO2 ABG 29 mmol/L (23-27)
--- NOTE | 2017-11-01 23:09 | PC.NURSE ---
Admit Note 2244 - Patient admitted to room 106. Brought over on stretcher by nursing staff. Able to transfer self to bedside commode and then to bed. Alert and oriented with pleasant affect. Denies pain or SOB at this time. 97% on venti mask. Able to move all extremities. Oriented to room and call light, call light within reach.
[2017-11-02] VITALS (13 sets, daily range): BP systolic 104–145; BP diastolic 49–79; PULSE 86–106; RESP 12–23; TEMP 35.7–37.6; O2SAT 90–100; BMI 23.7
[2017-11-02] MEDS: GABAPENTIN 300 MG CAPSULE PO ×3 (01:01→21:50)
[2017-11-02] MEDS: TRAZODONE 50 MG TABLET PO ×2 (01:03→23:22)
[2017-11-02] MEDS: ALBUTEROL/IPRATROPIUM 3 ML AMPUL INH ×3 (06:29→16:30)
[2017-11-02] MEDS: ENOXAPARIN 40 MG/0.4 ML SYRINGE SUBCUT (09:01)
[2017-11-02] MEDS: methylPREDNISolone 125 MG/2 ML VIAL 60 MG IV ×2 (09:02→22:02)
[2017-11-02] MEDS: POLYETHYLENE GLYCOL 3350 17 GM POWD.PACK PO (09:04)
[2017-11-02] MEDS: LEVOTHYROXINE 75 MCG TABLET PO (09:06)
[2017-11-02] MEDS: METOPROLOL 25 MG TABLET 12.5 MG PO ×2 (09:07→22:16)
[2017-11-02] MEDS: ROSUVASTATIN 10 MG TABLET 20 MG PO (10:12)
[2017-11-02] MEDS: ACETAMINOPHEN 325 MG TABLET 650 MG PO (11:38)
--- NOTE | 2017-11-02 12:20 | ST.IPIE ---
Past Medical History (Last Updated 11/01/17 @ 22:23 by Rashad Alvarez MD) Non Hodgkin's lymphoma (Resolved Medical) In remission Acute CVA (cerebrovascular accident) (Acute Medical) Osteoarthritis (Medical 07/23/10) Exudative age-related macular degeneration (Medical 07/23/10) Chronic obstructive pulmonary disease (Medical) Current smoker (Medical 05/17/12) Raynaud's disease (Medical 05/17/12) History of aortic valve replacement with bioprosthetic valve (Medical 10/23/10) Hyperlipidemia (Acute Medical) Hypertension (Acute Medical) Hypothyroidism (Acute Medical) Macular degeneration (Acute Medical) Retinal artery occlusion (Acute Medical) ST IP Initial Evaulation Report EXPLOSIVE OPERATOR BOMB Clinical Swallow Evaluation Start: 11/02/17 12:01 Freq: Status: Active Protocol: Document 11/02/17 12:01 TLC (Rec: 11/02/17 12:19 TLC [id number]) Clinical Swallow Evaluation Session Time Total Visit Minutes 30 Referral Reason for Referral Cough Setting Assessment Location Acute Care Visit Type Note Type Initial Evaluation Next Note Type Next Note Type Treatment Note Patient Information History Taken from Dr. Alvarez's note: Patient is a 77-year-old female who presented to the emergency department via ambulance transport due to fever, worsening cough and shortness of breath. O2 sat was in the 70s prior to ER. Temp was 102.2?. She is currently on 50% O2 via Venturi mask with sats in the low 90s. She was just released from the hospital yesterday after admission for probable acute stroke. She had presented with acute dizziness with cerebellar signs and new visual field deficit. Brain MRI showed chronic extensive microvascular disease. Patient notes that she had a terrible cough during last admission. She states the cough started a couple of weeks ago and recently much worse. She was evaluated for the cough which was thought secondary to COPD. Her chest x-ray on 2017 did not show pneumonia or other acute findings. 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 She was already on nocturnal home O2. She denies history of CHF or coronary artery disease. Patient has history of bioprosthetic bovine aortic valve in 2013 and at that time had benign growth removed as well. Current complaints are severe cough, shortness of breath, headache from coughing , fever and chills. Subjective Observations Patient seen sitting up in chair in room. Alert and oriented. She denied any history of dysphagia, but states she eats moist foods ever since she had neck radiation ~15 years ago. Her voice was also noted to be reduced in volume which she says was a result of the radiation as well as difficulty initiating dry swallows. Evaluation Liquids Trialed Thin Administration Type Straw Oral Impairment WFL Oral Phase Comments Oral phase and oral peripheral exam within funcitonal limits . Pharyngeal Phase Comments 3 oz water test resulted in delayed cough ~1 minute. No change in vocal quality or other signs of aspiration observed. Given patient's current cough (present prior to trials), it is difficult to assess pharyngeal impairment. Patient refused other trials including solid foods prior to her echocardiogram. Findings Impressions Recommend continue current diet of regular textures, and thin liquids. Patient demonstrates adequate self-awareness for ordering meals and states she ordered soup for lunch and salmon for dinner. Given patient's current cough and history of radiation to the neck as well as recent TIA, further assessment is warranted. Recommend follow-up with patient tomorrow during meal if possible and potential instrumental assessment as indicated. Diet Recommendations Liquids Order Thin Diet Order Regular Medication Recommendations As Tolerated Treatment Plan Appropriate for Therapy Yes Dysphagia Goals Patient will participate in ongoing dysphagia assessment including instrumental assessment as indicated.
[2017-11-02] MEDS: FUROSEMIDE 40 MG/4 ML VIAL IV (13:30)
--- NOTE | 2017-11-02 15:13 | CM.DANOTE ---
Discharge Planning/Care Management CM Discharge Assessment Start: 11/02/17 15:09 Freq: Status: Active Protocol: Document 11/02/17 15:09 (Rec: 11/02/17 15:13 [id number]) Discharge Planning Assessment Assigned Car Inspector EMERGENCY ROOM PHYSICIAN Advance Directives? Yes Advance Directives on File No History Provided By Patient Family Member Medical Record Has Patient been admitted in last 30 Yes days? Comment Discharged on Tuesday 10/31 Prior Living Arrangements House Household Members none Type of transporation used prior to Drives own vehicle admit Comment Drives during the day only. Independent with ADL's Yes Is patient alert and oriented? Yes Community Services used prior to Oxygen Therapy admission: Physical Therapy Occupational Therapy DME Already Rented / Owned FWW / Walker Oxygen Patient/Family Preference Home with Home Health Discharge Plan Home with Home Health Transportation Arrangement Daughter to provide transportation home. Referrals Initiated Home Health Additional Comment [facility] has referral from Wednesday's discharge. Notify of discharge date. If patient plan is home with home health Yes : Has signed face to face form been completed? Whiteboard Updated in Patient Room with Yes name and ext. # of Car Inspector Review Status In Process Next Review Date 11/04/17 Next Review Type Continued Stay Review Patient was just discharged on Wednesday with home O2 and [facility] and OT. Services to begin today. Met with patient, daughter/[place] and neighbor. Daughter is a nurse at [employer]. Patient gave SW permission to speak with visitors in room. Notified family of CM team role and family understood. Family states nothing has changed since last admission. Family has some concerns that patient was discharged on a nebulizer but does not know how to use it, and is unable to used the inhaler. Family also asked that spacer be provided. Family's goal is for patient to discharge home with [facility],OT and home o2. Patient is having difficulty getting a portable regulator and extension tube from [facility]. Discussed with RT to follow up with [facility], provide education with patient's nebulizer and discuss concerns overall with home oxygen. Family will bring home nebulizer for training. Plan: Patient to discharge home with [facility] and OT and home o2. CM team to notify
--- NOTE | 2017-11-02 15:18 | PT.IIE ---
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) Chronic obstructive pulmonary disease Current smoker (05/17/12) Raynaud's disease (05/17/12) History of aortic valve replacement with bioprosthetic valve (10/23/10) Hyperlipidemia (Acute) Hypertension (Acute) Hypothyroidism (Acute) Macular degeneration (Acute) Retinal artery occlusion (Acute) Physical Therapy Inpatient Evaluation/Re-Eval M1 PT/OT-IP Prior Functional Status Start: 11/02/17 16:58 Freq: NEEDED Status: Active Protocol: Document 11/02/17 15:18 AB (Rec: 11/02/17 17:18 AB [id number]) Medical Review Prior Functional Status Medical History Reviewed Yes Communication able to make needs known Mobility and Gait stated that she is modified independent with mobility witout AD prior to CVA. Social History Household Members none Living Arrangements House Number of Floors (Floors) Two Floors Number of Stairs To Enter/Railing? no steps to enter; has 13 steps down to laundry room with R rail descending Home Environment Standard Height Toilet Home Equipment Four Wheel Walker Straight Cane Hand Held Shower Additional Social History Comment has a walk in tub shower with hand held shower; daughter stated that she ordered a 3WW for pt but has not arrived yet M2 PT-IP Current Condition Start: 11/02/17 16:58 Freq: NEEDED Status: Active Protocol: Document 11/02/17 15:18 AB (Rec: 11/02/17 17:18 AB [id number]) Physical Therapy Current Condition Current Condition Evaluation Date 11/02/17 Treatment Diagnosis pneumonia Onset Date 11/01/17 Precautions Other Precautions O2 sat M3 PT-IP Subjective Start: 11/02/17 16:58 Freq: NEEDED Status: Active Protocol: Document 11/02/17 15:18 AB (Rec: 11/02/17 17:18 AB [id number]) Subjective Physical Therapy Visit Type Type Initial Evaluation Visit Start Time 15:18 Visit Stop Time 15:48 Total Visit Minutes 30 Number of SEAM CHECKER Visits 0 Physical Therapy Visit Comments Patient Comments pt agreeable to do therapy Therapy Pain Assessment Pain Present Pain Present Denied Pain M4 PT-IP Mobility and Gait Start: 11/02/17 16:58 Freq: NEEDED Status: Active Protocol: Document 11/02/17 15:18 AB (Rec: 11/02/17 17:18 AB [id number]) PT-Bed Mobility Assessment Supine to Sit Supine to Sit Minimal Assistance Sit to Supine Sit to Supine Minimal Assistance PT-Transfer Assessment Sit to and From Stand Sit to and from Stand Minimal Assistance Equipment Transfer Assistive Device Gait Belt Front Wheeled Walker Orthotic/Prosthetic Devices or Brace: No Transfers Transfer Destination Bed Transfer Technique pt ambulated towards the bed and back to chair using FWW Transfer Ability Level of Assist Minimal Assistance Moderate Assistance Gait Assessment Gait Gait Assistance Required: Minimum Assistance Moderate Assistance 1 Person Assist Distance (Feet) (feet) 12 Assistive Devices Assistive Device Gait Belt Front Wheeled Walker Orthotic/Prosthetic Devices or Brace: No Gait Deviations General Gait Pattern Decreased Stride Length Decreased Feet Clearance Factors Limiting Gait Function Factors Limiting Gait Function Decreased Activity Tolerance Decreased Strength Poor Balance Poor Safety Awareness Comments Gait Comments pt ambulated towards the bed ~ 1 2 ft using FWW min A but required mod A ambulated back to chair using FWW and cues for safety. O2 sat sitting prior to ambulation at 3 L/min; 87-92%; informed nurse and stated that O2 can go up to 4L/min. O2 sat after ambulation: 88- 90% at 4L/min PT-Balance Assessment Sitting Balance and Reactions Static Sitting Balance Ability Good Dynamic Sitting Balance Ability Good Standing Balance and Reactions Static Standing Balance Ability Fair Dynamic Standing Balance Ability Fair Device Used FWW M5 PT-IP Objective Assessments Start: 11/02/17 16:58 Freq: NEEDED Status: Active Protocol: Document 11/02/17 15:18 AB (Rec: 11/02/17 17:18 AB [id number]) Orientation Orientation/Cognition Level of Alertness Alert Orientation Name Safety Awareness Decreased Safety Awareness Strength Upper Extremity Strength Assessment Within Functional Limits Lower Extremity Strength Assessment Bilaterally Impaired Knee 3+/5 M6 PT-IP Treatment Start: 11/02/17 16:58 Freq: NEEDED Status: Active Protocol: Document 11/02/17 15:18 AB (Rec: 11/02/17 17:18 AB [id number]) Physical Therapy Treatment Education Education Provided Safety M7 PT-IP Assessment and Plan Start: 11/02/17 16:58 Freq: NEEDED Status: Active Protocol: Document 11/02/17 15:18 AB (Rec: 11/02/17 17:18 AB [id number]) PT Summary Assessment and Plan Potential Rehabilitation Potential Fair Status of Condition at Evaluation Evolving Summary Impairments Pain ROM Strength Balance Coordination Sensation Tone Cognition Bed Mobility Transfers Gait Activity Tolerance Assessment Summary pt requires one person assist with mobility and presents with decrease activity tolerance affecting mobility. pt. will require SNF rehab to improve strength and function . Goals Bed Mobility Goal Standby Assistance Transfer Goal Standby Assistance Gait Goal Standby Assistance Gait Distance 100 Days to Meet Goals 3 Frequency of Treatment Frequency Of Treatment Once a Day Treatment Plan Physical Therapy Treatment Plan Bed Mobility Training Transfer Training Gait Training Therapeutic Exercise Balance Retraining Post Op Education Discharge Planning Hot or Cold Pack Neuromuscular Re-ed Coordination Retraining Manual Therapy Other Recommendations and Next Treatment ambulation Focus Recommendations To Nursing Amount of Assist Needed 1 Person Assist Discharge Recommendations PT Discharge Recommendations SNF Rehab
--- NOTE | 2017-11-02 17:30 | OT.IP.EVAL ---
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) Chronic obstructive pulmonary disease Current smoker (05/17/12) Raynaud's disease (05/17/12) History of aortic valve replacement with bioprosthetic valve (10/23/10) Hyperlipidemia (Acute) Hypertension (Acute) Hypothyroidism (Acute) Macular degeneration (Acute) Retinal artery occlusion (Acute) Surgical History (Last Reviewed 10/29/17 @ 19:18 by Kike Medina MD) History of cataract removal with insertion of prosthetic lens Status post cholecystectomy Occupational Therapy Inpatient Evaluation/Re-Eval M1 PT/OT-IP Prior Functional Status Start: 11/02/17 16:58 Freq: NEEDED Status: Active Protocol: Document 11/02/17 15:18 AB (Rec: 11/02/17 17:18 AB [id number]) Medical Review Prior Functional Status Medical History Reviewed Yes Communication able to make needs known Mobility and Gait stated that she is modified independent with mobility witout AD prior to CVA. Social History Household Members none Living Arrangements House Number of Floors (Floors) Two Floors Number of Stairs To Enter/Railing? no steps to enter; has 13 steps down to laundry room with R rail descending Home Environment Standard Height Toilet Home Equipment Four Wheel Walker Straight Cane Hand Held Shower Additional Social History Comment has a walk in tub shower with hand held shower; daughter stated that she ordered a 3WW for pt but has not arrived yet M1 PT/OT-IP Prior Functional Status Start: 11/02/17 17:09 Freq: NEEDED Status: Active Protocol: Document 11/02/17 17:10 [facility] (Rec: 11/02/17 17:30 [facility] [id number]) Medical Review Prior Functional Status Medical History Reviewed Yes Communication Independent. Mobility and Gait Pt states did not use a device at home even though recommended from last discharge in 10/31/17 to use a FWW. Activities of Daily Living and IADL's Per pt able to do all ADL's with increased time. Pt states O2 tubing did not reach the bathroom therefore got SOB. Prior Functional Level (Other details) Prior to last hospitalization in which she was discharged on 10/31/17, pt independent with all ADL's/IADL's and driving during the day only. Social History Household Members none Living Arrangements House Number of Floors (Floors) Two Floors Number of Stairs To Enter/Railing? NO steps to enter, but 13 steps and left hand rail to go down to the laundry room. Home Environment Standard Height Toilet Narrow Doors Home Equipment Front Wheel Walker Straight Cane Additional Social History Comment Pt states does not use cane due to not able to control cane with left hand and FWW too wide for doorways. M2 OT-IP Current Condition Start: 11/02/17 17:09 Freq: Status: Active Protocol: Document 11/02/17 17:10 [facility] (Rec: 11/02/17 17:30 [facility] [id number]) Occupational Therapy Current Condition Current Condition Evaluation Date 11/02/17 Treatment Diagnosis Hypoxia, respiratory failure Diagnosis Onset Date 11/01/17 M3 OT- IP Subjective and Pain Start: 11/02/17 17:09 Freq: Status: Active Protocol: Document 11/02/17 17:10 [facility] (Rec: 11/02/17 17:30 [facility] [id number]) OT- Subjective Occupational Therapy Visit Type Type Initial Evaluation Visit Start Time 15:18 Visit Stop Time 15:48 Total Visit Minutes 30 Occupational Therapy Visit Comments Patient/Caregiver Goals Pt now open to go to skilled rehab prior to going home. OT Pain Assessment Pain When Pain Assessed At Rest Pain Present Pain Present Denied Pain M4 OT- IP ADL's Start: 11/02/17 17:09 Freq: Status: Active Protocol: Document 11/02/17 17:10 [facility] (Rec: 11/02/17 17:30 [facility] [id number]) OT YEH-[id number]-Uewvqrq General Evaluation Self-Feeding Ability Standby Assistance Areas Needing Assistance Opening Containers M6 OT- IP Functional Cognition Start: 11/02/17 17:09 Freq: Status: Active Protocol: Document 11/02/17 17:10 [facility] (Rec: 11/02/17 17:30 [facility] [id number]) Cognitive Factors Limiting Selfcare Function Cognitive Ability Level of Alertness Alert Patient Orientation Name Place Situation Attention Span Ability Capable of Focused Attention Capable of Sustained Attention Ability to Follow Commands Able to Follow One Step Commands Memory Description Short Term Impaired Safety Awareness Underestimates Need for Assistance Problem Solving Ability Needs Assist to Identify Solutions Cognitive Comments Cognitive Assessment Comments To further assess. 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 M7 OT- IP Mobility and Balance Start: 11/02/17 17:09 Freq: Status: Active Protocol: Document 11/02/17 17:10 [facility] (Rec: 11/02/17 17:30 [id number]- Bed Mobility Assessment Rolling Type of Rolling Roll to Right Supine to Sit Supine to Sit Assist Minimal Assistance Sit to Supine Sit to Supine Assist Minimal Assistance OT-Transfer Assessment Sit to and From Stand Sit to and from Stand Minimal Assistance Moderate Assistance Transfers Transfer Ability Moderate Assistance Technique Transfer Destination Chair Transfer Technique Stand Step Pivot Devices Transfer Assistive Devices Gait Belt Front Wheeled Walker Comments Mobility Comments Pt gets easily SOB and more unsteady while up on her feet as she tires. O2 on 3L to 4L from 87-92% OT- Balance Assessment Standing Balance and Reactions Static Standing Balance Ability Fair Dynamic Standing Balance Ability Poor M8 OT- IP Objective Assessments Start: 11/02/17 17:09 Freq: Status: Active Protocol: Document 11/02/17 17:10 [facility] (Rec: 11/02/17 17:30 [facility] [id number]) OT Gross Range of Motion Upper Extremity Range of Motion ROM Impairments Grossly WFL for needs. OT Strength Comments Strength Comments LUE weaker than RUE, needing assist for set-up. M9 OT- IP Assessment and Plan Start: 11/02/17 17:09 Freq: Status: Active Protocol: Document 11/02/17 17:10 [facility] (Rec: 11/02/17 17:30 [facility] [id number]) OT Summary Assessment and Plan Potential Rehabilitation Potential Good Analytic Complexity at Evaluation Low Summary OT Impairments Strength Balance Coordination Functional Cognition Functional Mobility Grooming Dressing Toileting Bathing Toilet Transfers Shower Transfers Progress Towards Goals Slow Progress due to Medical Issues Slow Progress due to Activity Tolerance Slow Progress due to Cognition Assessment Summary Pt low complpexity and main barrier is decreased activity tolerance and decreased safety awarness and now needing assist for ADl's and functional mobility. Pt would benefit from skilled rehab. Goals Grooming Goal Standby Assistance Dressing Goal Contact Guard Assistance Toileting Goal Standby Assistance Bathing Goal Minimal Assistance Toilet Transfer Goal Standby Assistance Shower Transfer Goal Contact Guard Assistance Patient/Caregiver Education Goal Demonstrate Energy Conservation and Pacing Caregiver Independent Assisting Patient Days to Meet Goals 7 Frequency of Treatment Frequency Of Treatment Once a Day Treatment Plan OT Treatment Plan ADL Training Functional Cognition Training Functional Mobility Patient/Family Education Discharge Planning Other Treatment Recommendations and Next Assess in more detail BUE Treatment Focus function and vision. Discharge Recommendations OT Discharge Recommendations SNF Rehab Home Equipment Needs [facility]
--- NOTE | 2017-11-02 18:01 | P.PN_ITS ---
Subjective Date Patient Seen: 11/02/17 Time Patient Seen: 08:57 Interval history: THIS GENTLEMAN ADMITTED WITH FEVER OF 89 SHORTNESS OF BREATH COUGH AND HYPOXEMIA AND COPD IS DISCHARGED FROM THE HOSPITAL ON THE 12TH AND IS READMITTED YESTERDAY HE HAS SOME DIFFICULTY SWALLOWING REQUEST SPEECH EVAL PT AND OT EVAL FOR PLACEMENT AND DISCHARGE PLANNING HISTORY IS SOMEWHAT SHORT OF BREATH Exam Vital Signs (past 8 hours): - 11/02/17 11:08 11/02/17 14:00 11/02/17 16:00 Temperature 98.6 F 99.7 F H Pulse Rate 86 95 H 104 H Respiratory Rate 16 12 20 Blood Pressure 104/59 L 121/64 H Pulse Oximetry 94 94 91 Fraction of Inspired Oxygen 50 Oxygen Delivery Method High Flow Nasal Cannula Oxygen Flow Rate 3 Const General: cooperative, healthy appearing and well developed Orientation: alert HENWA Head: normal to inspection, normocephalic and atraumatic Ears: hearing grossly normal bilaterally Nose: external nose normal Eyes General: appearance normal, both eyes and all related structures Eyelids: eyelids normal Conjunctivae: conjunctivae normal Sclera: sclerae normal Pupils: PERRL EOM: EOM intact bilaterally Neck Neck: normal visual inspection Thyroid: thyroid normal Resp Effort & Inspection: normal respiratory effort and able to speak in complete sentences Auscultation: crackles (BASES) bilaterally Cardio Palpation: normal PMI Rate: regular rate Rhythm: regular rhythm Heart Sounds: S1 normal and S2 normal GI Inspection: normal to inspection Palpation: soft Skin General: no rashes or lesions noted Neuro General: alert, awake and oriented x3 Cranial Nerves: CN's II-XI intact bilaterally Cognition: normal cognition Speech: speech normal Extrem General: edema (2+ GISSEL ) Psych Mood: congruent mood Affect: normal affect Attitude: cooperative Thought Process: normal Thought Content: normal Judgment: judgment good Objective Labs Result Diagrams: 11/01/17 19:45 11/01/17 19:45 Labs: Laboratory Results - last 24 hr 11/01/17 11/01/17 11/01/17 19:45 19:45 19:45 WBC 9.0 RBC 4.50 Hgb 13.9 Hct 40.7 MCV 90.4 MCH 31.0 MCHC 34.3 RDW 14.2 Plt Count 180 Neut % (Auto) 80.6 H Lymph % (Auto) 10.6 L [place] % (Auto) 8.1 Eos % (Auto) 0.3 L Baso % (Auto) 0.4 Neut # (Auto) 7200 H ABG pH ABG pCO2 ABG pO2 ABG HCO3 ABG Total CO2 ABG O2 Saturation ABG Base Excess FiO2 Sodium 132 L Potassium 3.6 Chloride 91 L Carbon Dioxide 32 BUN 10 Creatinine 0.40 L Estimated GFR > 60.0 BUN/Creatinine Ratio 25.0 H Glucose 107 Lactate Calcium 9.2 Magnesium 1.8 Total Bilirubin 1.0 AST 55 H ALT 42 Alkaline Phosphatase 135 H D Total Creatine Kinase 133 CK-MB (CK-2) 0.47 CK-MB (CK-2) Rel Index 0.4 L Troponin I < 0.012 B-Natriuretic Peptide 547.0 H Total Protein 6.5 Albumin 3.6 Globulin 2.9 Albumin/Globulin Ratio 1.2 Procalcitonin 0.11 Urine Color Urine Appearance Urine pH Ur Specific [place] Urine Protein Urine Glucose (UA) Urine Ketones Urine Occult Blood Urine Nitrate Urine Bilirubin Urine Urobilinogen Ur Leukocyte Esterase Urine RBC Urine WBC Ur Squamous Epith Cells Urine Bacteria Hyaline Casts Granular Casts Urine Mucus Ur Culture Indicated? Micro UA Comment Nasal Screen MRSA (PCR) 11/01/17 11/01/17 11/01/17 19:45 21:15 22:31 WBC RBC Hgb Hct MCV MCH MCHC RDW Plt Count Neut % (Auto) Lymph % (Auto) [place] % (Auto) Eos % (Auto) Baso % (Auto) Neut # (Auto) ABG pH 7.42 ABG pCO2 43.4 ABG pO2 60 L ABG HCO3 28 H ABG Total CO2 29 H ABG O2 Saturation 91 L ABG Base Excess 3.0 FiO2 0.50 Sodium Potassium Chloride Carbon Dioxide BUN Creatinine Estimated GFR BUN/Creatinine Ratio Glucose Lactate 1.2 Calcium Magnesium Total Bilirubin AST ALT Alkaline Phosphatase Total Creatine Kinase CK-MB (CK-2) CK-MB (CK-2) Rel Index Troponin I B-Natriuretic Peptide Total Protein Albumin Globulin Albumin/Globulin Ratio Procalcitonin Urine Color Dark yellow Urine Appearance Clear Urine pH 6.5 Ur Specific [place] 1.020 Urine Protein 2+ H Urine Glucose (UA) Negative Urine Ketones 2+ H Urine Occult Blood 1+ H Urine Nitrate Negative Urine Bilirubin Negative Urine Urobilinogen 4.0 H Ur Leukocyte Esterase Negative Urine RBC 10-30/hpf H Urine WBC 1-5/hpf Ur Squamous Epith Cells 1-5 /hpf Urine Bacteria Few (2-10) H Hyaline Casts 0-1/lpf Granular Casts 0-1/lpf Urine Mucus 2+ H Ur Culture Indicated? Cult not indicated Micro UA Comment Not Reportable Nasal Screen MRSA (PCR) 11/01/17 22:44 WBC RBC Hgb Hct MCV MCH MCHC RDW Plt Count Neut % (Auto) Lymph % (Auto) [place] % (Auto) Eos % (Auto) Baso % (Auto) Neut # (Auto) ABG pH ABG pCO2 ABG pO2 ABG HCO3 ABG Total CO2 ABG O2 Saturation ABG Base Excess FiO2 Sodium Potassium Chloride Carbon Dioxide BUN Creatinine Estimated GFR BUN/Creatinine Ratio Glucose Lactate Calcium Magnesium Total Bilirubin AST ALT Alkaline Phosphatase Total Creatine Kinase CK-MB (CK-2) CK-MB (CK-2) Rel Index Troponin I B-Natriuretic Peptide Total Protein Albumin Globulin Albumin/Globulin Ratio Procalcitonin Urine Color Urine Appearance Urine pH Ur Specific [place] Urine Protein Urine Glucose (UA) Urine Ketones Urine Occult Blood Urine Nitrate Urine Bilirubin Urine Urobilinogen Ur Leukocyte Esterase Urine RBC Urine WBC Ur Squamous Epith Cells Urine Bacteria Hyaline Casts Granular Casts Urine Mucus Ur Culture Indicated? Micro UA Comment Nasal Screen MRSA (PCR) Negative for mrsa Assessment & Plan Plan: Assessment/Plan Narrative: 1. ACUTE SHORTNESS OF BREATH TODAY WITH FEVER AND A CHEST X-RAY SUGGESTIVE OF POSSIBLE INFILTRATES TREATED A PNEUMONIA POSSIBLE LOBE ACUTE EXACERBATION COPD IS GETTING SOLU-MEDROL AND BRONCHODILATORS 2. RECENT DISCHARGE FROM THE HOSPITAL FOR POSSIBLE STROKE DYSPHAGIA AND ASPIRATION NEEDS TO BE CONSIDERED SPEECH EVALUATE TO BE DONE DISCHARGE PLANNING AFTER THE EVALUATION BY PT OT Time Spent With Patient Time with patient: 25 - 35 minutes
[2017-11-02] MEDS: levoFLOXacin 750 MG/150 ML PIGGYBACK 100 MG IV (21:49)
[2017-11-02] MEDS: ASPIRIN EC 81 MG TABLET PO (22:03)
[2017-11-03] VITALS (16 sets, daily range): BP systolic 132–153; BP diastolic 72–84; PULSE 94–99; RESP 14–21; TEMP 36.6–37.2; O2SAT 88–95
[2017-11-03] MEDS: ALBUTEROL/IPRATROPIUM 3 ML AMPUL INH ×3 (00:07→20:48)
--- NOTE | 2017-11-03 00:41 | PC.NURSE ---
arnulfo note pt had poor activity tolerance with phys. therapy today. Encouraged IS use. Pt shows good technique, reaching 1000 ml. Pt has moist cough post IS use. pt c/o pain to abd with coughing. Pt c/o right hand itching distal to IV site about mcc through her Levaquin infusion. No rash seen, no phlebitis. Stopped IV and called hospitalist who DC'd Levaquin. Also clarified that pt takes trazodone at hs not nortryptoline. Went to flush and lock right hand IV but now is leaking. IV removed.
[2017-11-03 05:09] LABS: Add Manual Diff / Slide Review NO; Basophils Percent Auto 0.1 % (0-2); Hematocrit 35.9 % (36-46); Hemoglobin 12.2 g/dL (12.0-16.0); Lymphocytes Percent Auto 3.6 % (25-40); Mean Corpuscular Hemoglobin 30.6 PG (26-34); Mean Corpuscular Volume 89.8 fL (80-100); Monocytes Percent Auto 3.8 % (3-14); Neutrophils Absolute Auto 12200 /uL (3000-5900); Neutrophils Percent Auto 92.5 % (50-75); Platelet Count 194 X10^3/uL (150-400); Red Blood Cell Count 3.99 X10^6/uL (4.0-5.2); Red Cell Distribution Width 14.4 % (11.6-14.8); White Blood Cell Count 13.2 X10^3/uL (4.5-11.0)
[2017-11-03 05:22] LABS: Alanine Aminotransferase 78 IU/L (9-52); Albumin 3.2 g/dL (3.5-5.0); Albumin Globulin Ratio 1.2 (1.0-2.8); Alkaline Phosphatase 105 U/L (38-126); Aspartate Aminotransferase 118 IU/L (14-36); Bilirubin Total 0.5 mg/dL (0.2-1.3); Blood Urea Nitrogen 17 mg/dL (7-17); Calcium 9.3 mg/dL (8.4-10.2); Carbon Dioxide 36 mmol/L (22-32); Chloride 90 mmol/L (98-107); Estimated Glomerular Filt Rate > 60.0 mL/min (>60); Globulin 2.6 g/dL (1.7-4.1); Glucose 160 mg/dL (80-110); HEMOLYSIS < 15 (0-50); Potassium 3.5 mmol/L (3.4-5.1); Sodium 133 mmol/L (137-145); Total Protein 5.8 g/dL (6.3-8.2)
[2017-11-03] MEDS: LEVOTHYROXINE 75 MCG TABLET PO (06:32)
--- NOTE | 2017-11-03 08:56 | DI.RAD.S_ITS ---
PROCEDURE: FL BARIUM SWALLOW W SPEECH INDICATIONS: eval per speech TECHNIQUE: Examination was conducted in conjunction with speech pathology per standard protocol. In the lateral projection, filming was performed of the patient swallowing. AP projection filming may also be performed with patient swallowing. COMPARISON: None. FINDINGS: Function: The oral preparatory phase appears normal, with proper containment. The subsequent oral propulsive phase, pharyngeal phase, and esophageal phase of swallowing also appear normal with all proffered substances. There was mild episodic laryngotracheal penetration with thin liquids, but no aspiration. No pathologic vallecular pooling. Morphology: No cricopharyngeal bar is identified. No cervical esophageal webs. No Zenker's diverticulum. No strictures. IMPRESSION: Mild episodic penetration of thin liquids into the laryngotracheal region cephalad with thin liquids but no extension into the trachea or aspiration into the bronchi was observed. Please also refer to the dedicated speech therapy report which will be independently generated. Dictated by: Andrea Sullivan M.D. on 11/03/2017 at 14:42 Approved by: Andrea Sullivan M.D. on 11/03/2017 at 14:43
[2017-11-03] MEDS: ALBUTEROL 2.5 MG/3 ML NEB (ADULT) INH (09:12)
--- NOTE | 2017-11-03 09:15 | ST.IPDYTX ---
QUARANTINE OFFICER Dysphagia Treatment QUARANTINE OFFICER Dysphagia Treatment Start: 11/02/17 12:01 Freq: Status: Active Protocol: Document 11/03/17 08:56 TLC (Rec: 11/03/17 09:15 TLC [id number]) Dysphagia Treatment Session Time Visit Start Time 07:50 Visit Stop Time 08:30 Total Visit Minutes 40 Visit Information Visit Number 2 Setting Assessment Location Acute Care Visit Type Note Type Treatment Note Next Note Type Next Note Type Treatment Note Patient Information Subjective Observations Patient seen lying in bed awake. Per nursing, patient only slept for ~1 hours last night which patient attributes to being on steroids. Nursing reports patient's needed oxygen levels have doubled from 3L yesterday to 6L today and her WBC has risen from 9 on Wednesday to 13.2 today. She agreed to participate in dysphagia therapy/assessment during breakfast. Treatment Liquids Trialed Thin Solids Trialed Puree Mechanical Soft Administration Type Straw Oral Strategies Alternate Liquids/Solids Treatment Activities During repositioning in bed and prior to PO trials, patient began coughing. She was able to self-feed an egg omelet which she previously ordered. She added ketchup for extra moisture, but ate only 5 bites of the omelet before stating it was too dry. Oral residue was observed following bites of omelet, but patient independently cleared with liquid wash. She exhibited a slow rate independently with controlled bite and sip sizes. She demonstrated excellent self-monitoring during the meal and implemented strategies as needed, including requesting yogurt once she realized the omelet was too dry. She exhibited a delayed cough following two sips of thin liquids and one bite of omelet. No other signs of aspiration were observed during the trials. Education was provided regarding Modified Barium Swallow Study to assess pharyngeal function. Patient was reluctant initially stating she didn't feel her swallowing was the cause of her recent onset cough, given her swallowing impairments have been going on for ~16 years since her radiation. After further discussion, she expressed understanding and agreed. 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 For this reason, a Modified Barium Swallow Study is recommended to rule out aspiration and obtain baseline of patient's swallow function. Diet Recommendations Recommendations Continue Current Diet Liquids Order Thin Diet Order Regular Medication Recommendations As Tolerated Treatment Plan Appropriate for Continued Therapy Yes Therapy Recommendations MBSS scheduled for 1pm today. Patient to continue with current diet in the meantime. Dysphagia Goals Patient will participate in instrumental assessment (MBSS) to rule out aspiration, obtain baseline of swallow function and guide plan of care.
[2017-11-03] MEDS: ROSUVASTATIN 10 MG TABLET 20 MG PO (09:44)
[2017-11-03] MEDS: methylPREDNISolone 125 MG/2 ML VIAL 60 MG IV (09:44)
[2017-11-03] MEDS: POLYETHYLENE GLYCOL 3350 17 GM POWD.PACK PO (09:44)
[2017-11-03] MEDS: ENOXAPARIN 40 MG/0.4 ML SYRINGE SUBCUT (09:45)
[2017-11-03] MEDS: METOPROLOL 25 MG TABLET 12.5 MG PO (09:45)
[2017-11-03] MEDS: GABAPENTIN 300 MG CAPSULE PO ×3 (09:45→21:21)
[2017-11-03] MEDS: ACETAMINOPHEN 325 MG TABLET 650 MG PO ×2 (09:50→21:23)
--- NOTE | 2017-11-03 11:45 | PT.IPTN ---
Physical Therapy Treatment Note M2 PT-IP Current Condition Start: 11/02/17 16:58 Freq: NEEDED Status: Active Protocol: Document 11/02/17 15:18 AB (Rec: 11/02/17 17:18 AB [id number]) Physical Therapy Current Condition Current Condition Evaluation Date 11/02/17 Treatment Diagnosis pneumonia Onset Date 11/01/17 Precautions Other Precautions O2 sat M3 PT-IP Subjective Start: 11/02/17 16:58 Freq: NEEDED Status: Active Protocol: Document 11/03/17 11:45 GGD (Rec: 11/03/17 12:36 GGD [id number]) Subjective Physical Therapy Visit Type Type Treatment Note Visit Start Time 11:30 Visit Stop Time 11:45 Total Visit Minutes 25 Number of PEER SPECIALIST Visits 1 Physical Therapy Visit Comments Patient Comments Pt want's to walk. M4 PT-IP Mobility and Gait Start: 11/02/17 16:58 Freq: NEEDED Status: Active Protocol: Document 11/03/17 11:45 GGD (Rec: 11/03/17 12:36 GGD [id number]) PT-Transfer Assessment Sit to and From Stand Sit to and from Stand Contact Guard Assistance Use of Upper Extremities Equipment Transfer Assistive Device Gait Belt Front Wheeled Walker Transfers Transfer Destination Chair Gait Assessment Gait Gait Assistance Required: Contact Guard Assist Minimum Assistance 1 Person Assist Distance (Feet) (feet) 70 Assistive Devices Assistive Device Gait Belt Front Wheeled Walker Gait Deviations General Gait Pattern Decreased Stride Length Decreased Feet Clearance Factors Limiting Gait Function Factors Limiting Gait Function Decreased Activity Tolerance Decreased Strength Poor Balance Poor Safety Awareness Comments Gait Comments O2 on 5 l 95% at rest, with activity 94% M5 PT-IP Objective Assessments Start: 11/02/17 16:58 Freq: NEEDED Status: Active Protocol: Document 11/02/17 15:18 AB (Rec: 11/02/17 17:18 AB [id number]) Orientation Orientation/Cognition Level of Alertness Alert Orientation Name Safety Awareness Decreased Safety Awareness Strength Upper Extremity Strength Assessment Within Functional Limits Lower Extremity Strength Assessment Bilaterally Impaired Knee 3+/5 M6 PT-IP Treatment Start: 11/02/17 16:58 Freq: NEEDED Status: Active Protocol: Document 11/02/17 15:18 AB (Rec: 11/02/17 17:18 AB [id number]) Physical Therapy Treatment Education Education Provided Safety M7 PT-IP Assessment and Plan Start: 11/02/17 16:58 Freq: NEEDED Status: Active Protocol: Document 11/03/17 11:45 GGD (Rec: 11/03/17 12:36 GGD [id number]) PT Summary Assessment and Plan Summary Assessment Summary Pt very slow moving with gait. She was unsteady with gait, but no LOB. She was safe with static balance with FWW. She did need cues for safe transfer to and from chair. Frequency of Treatment Frequency Of Treatment Once a Day Treatment Plan Physical Therapy Treatment Plan Bed Mobility Training Transfer Training Gait Training Therapeutic Exercise Balance Retraining Post Op Education Discharge Planning Hot or Cold Pack Neuromuscular Re-ed Coordination Retraining Manual Therapy Recommendations To Nursing Amount of Assist Needed 1 Person Assist Discharge Recommendations PT Discharge Recommendations SNF Rehab
--- NOTE | 2017-11-03 13:23 | PC.NURSE ---
pt doing fair, able to wean o2 down to 4l hfnc- transferred to floor care with no tele - report given to Torri montenegro and she will be receiving pt following modified barium swallow test following recent cva/tia -
--- NOTE | 2017-11-03 13:26 | OT.IP.TRT ---
Occupational Therapy Treatment Note M2 OT-IP Current Condition Start: 11/02/17 17:09 Freq: Status: Active Protocol: Document 11/02/17 17:10 [facility] (Rec: 11/02/17 17:30 [facility] [id number]) Occupational Therapy Current Condition Current Condition Evaluation Date 11/02/17 Treatment Diagnosis Hypoxia, respiratory failure Diagnosis Onset Date 11/01/17 M3 OT- IP Subjective and Pain Start: 11/02/17 17:09 Freq: Status: Active Protocol: Document 11/03/17 13:22 [facility] (Rec: 11/03/17 13:26 [facility] [id number]) OT- Subjective Occupational Therapy Visit Type Type Patient Unavailable Notes Pt having swallow study and unavailable, therefore to check on pt for OT tomorrow.
--- NOTE | 2017-11-03 15:18 | P.PN_ITS ---
Subjective Date Patient Seen: 11/03/17 Time Patient Seen: 15:17 Interval history: Admitted after a recent discharge from the hospital HAs dysphagia and was short of breath she has CHF and possibility of aspiration pneumonia speech therapy has seen her in and she will have modified barium swallow Appears no acute distress at this time Exam Vital Signs (past 8 hours): - 11/03/17 07:46 11/03/17 09:12 11/03/17 09:16 Temperature 99 F Pulse Rate 95 H 98 H Respiratory Rate 21 14 Pulse Oximetry 92 95 94 11/03/17 13:15 11/03/17 13:57 Temperature Pulse Rate 94 H Respiratory Rate 15 Pulse Oximetry 94 95 Fraction of Inspired Oxygen 50 Oxygen Delivery Method Nasal Cannula Oxygen Flow Rate 4 Objective Labs Result Diagrams: 11/03/17 04:38 11/03/17 04:38 Labs: Laboratory Results - last 24 hr 11/03/17 11/03/17 04:38 04:38 WBC 13.2 H RBC 3.99 L Hgb 12.2 Hct 35.9 L MCV 89.8 MCH 30.6 MCHC 34.0 RDW 14.4 Plt Count 194 Neut % (Auto) 92.5 H Lymph % (Auto) 3.6 L [place] % (Auto) 3.8 Eos % (Auto) 0.0 L Baso % (Auto) 0.1 Neut # (Auto) 90843 H Sodium 133 L Potassium 3.5 Chloride 90 L Carbon Dioxide 36 H BUN 17 Creatinine 0.50 L Estimated GFR > 60.0 BUN/Creatinine Ratio 34.0 H Glucose 160 H Calcium 9.3 Total Bilirubin 0.5 AST 118 H ALT 78 H Alkaline Phosphatase 105 Total Protein 5.8 L Albumin 3.2 L Globulin 2.6 Albumin/Globulin Ratio 1.2
--- NOTE | 2017-11-03 15:28 | PM.PN.1 ---
Subjective Date Patient Seen: 11/03/17 Time Patient Seen: 14:28 Interval history: Admitted from home 1 day after being discharged from the hospital initial admission on a Wednesday was for TIA cerebellar unsteady gait and also ocular problem The repeat admission was for difficulty in breathing increased oxygen requirement and hypoxia She was treated for pneumonia and has underlying emphysema she also seems to have some aspiration speech therapy has evaluated She is much improved with the treatment including Levaquin and nebulizer and prednisone She does not want to go to a rehab place wants go back home but the daughter thinks she will be very difficult to manage at home Exam Vital Signs (past 8 hours): - 11/03/17 07:46 11/03/17 09:12 11/03/17 09:16 Temperature 99 F Pulse Rate 95 H 98 H Respiratory Rate 21 14 Pulse Oximetry 92 95 94 11/03/17 13:15 11/03/17 13:57 Temperature Pulse Rate 94 H Respiratory Rate 15 Pulse Oximetry 94 95 Fraction of Inspired Oxygen 50 Oxygen Delivery Method Nasal Cannula Oxygen Flow Rate 4 Const General: cooperative, healthy appearing and comfortable Orientation: alert, awake and oriented x3 HENMT Head: normal to inspection Ears: hearing grossly normal bilaterally Nose: external nose normal Face and sinus: normal facial exam Eyes General: appearance normal, both eyes and all related structures Eyelids: eyelids normal Conjunctivae: conjunctivae normal Sclera: sclerae normal Pupils: PERRL EOM: EOM intact bilaterally Neck Neck: normal visual inspection Thyroid: thyroid normal Resp Effort & Inspection: normal respiratory effort and able to speak in complete sentences Auscultation: clear to auscultation bilaterally (anteriorly) Cardio Rate: regular rate Rhythm: regular rhythm Heart Sounds: S1 normal and S2 normal GI Inspection: normal to inspection Palpation: soft Back/Spine/Pelvis Back: normal to inspection and No back tenderness Skin General: no rashes or lesions noted Neuro General: alert, awake and oriented x3 Cranial Nerves: CN's II-XI intact bilaterally Cognition: normal cognition Speech: speech normal Gait: normal gait Motor: muscle tone normal throughout Extrem Left lower extremity: no edema Psych Appearance: grossly normal Speech and Movement: speech and movement normal Mood: congruent mood Affect: normal affect Attitude: cooperative Thought Process: normal Objective Labs Result Diagrams: 11/03/17 04:38 11/03/17 04:38 Labs: Laboratory Results - last 24 hr 11/03/17 11/03/17 04:38 04:38 WBC 13.2 H RBC 3.99 L Hgb 12.2 Hct 35.9 L MCV 89.8 MCH 30.6 MCHC 34.0 RDW 14.4 Plt Count 194 Neut % (Auto) 92.5 H Lymph % (Auto) 3.6 L [place] % (Auto) 3.8 Eos % (Auto) 0.0 L Baso % (Auto) 0.1 Neut # (Auto) 18898 H Sodium 133 L Potassium 3.5 Chloride 90 L Carbon Dioxide 36 H BUN 17 Creatinine 0.50 L Estimated GFR > 60.0 BUN/Creatinine Ratio 34.0 H Glucose 160 H Calcium 9.3 Total Bilirubin 0.5 AST 118 H ALT 78 H Alkaline Phosphatase 105 Total Protein 5.8 L Albumin 3.2 L Globulin 2.6 Albumin/Globulin Ratio 1.2 Assessment & Plan Plan: Assessment/Plan Narrative: 1. COPD emphysema with acute exacerbation Acute respiratory failure hypoxemia at time of admission Recent history of TIA cerebellar Dysphagia speech therapy evaluated Discharge planning patient is adamant about going back home rather than to SNF S put patient and daughter regarding discharge plan Time Spent With Patient Time with patient: 25 - 35 minutes
--- NOTE | 2017-11-03 15:59 | CM.DPC ---
DCP Cont: Per OT, pt could benefit from SNF rehab at d/c and pt may be agreeable. SW met bedside with pt, adult Dtr Kenyetta, and 3 supportive friends and discussed d/c planning needs. Pt confirms that she has a hx of [facility] and had a good experience and currently pt's preference would be to go to [facility]. SW discussed Inpt Rehab criteria and pt requested SW to make new referral to determine if she meets criteria for Inpt Rehab. SW discussed SNF rehab and provided the SNF Choice List and discussed Medicare coverage for SNF and pt very hesitant but family and friends adamant that pt is not safe for d/c home and they can only provide limited support to the pt. Dtr Kenyetta and supportive friend offering for pt to come stay at their house but pt currently hesitant. Plan: SW to make new referral to [facility] per pt preference to determine if she meets criteria. Family and friends discussing SNF rehab with pt as back up plan to determine SNF preference if pt cannot go to [facility]. AMY Schreiber
[2017-11-03] MEDS: ASPIRIN EC 81 MG TABLET PO (16:07)
--- NOTE | 2017-11-03 18:10 | ST.SWALLOW ---
Care Team Visit Care Team Role Provider Type Sofia Christie PA-C Family Provider Advanced Petrophysical Engineer Primary Care Provider Specialty: Medical Address: [address] [place] [address], [id number] Email: [email or web address] Maria Teresa Tinoco DO Emergency Provider Physician Specialty: Emergency Medicine Address: [address] [place] [address], [id number] Email: Rashad Alvarez MD Admit Provider Physician Attending Provider Specialty: Internal Medicine Address: [address] [place] [address], [id number] Email: Modified Barium Swallow Study SYSTEMS PROTECTION TECHNICIAN Modified Barium Swallow Study Start: 11/03/17 15:17 Freq: Status: Active Protocol: Document 11/03/17 16:20 LNK (Rec: 11/03/17 16:23 LNK [email or web address]) Modified Barium Swallow Study Total Time Visit Start Time 13:00 Visit Stop Time 13:30 Total Visit Minutes 30 Setting Setting Acute Care Patient Information Identification Type Name ID Wristband Patient History The pt was sees for a modified barium swallow study to r/o aspiration and to determine pt 's ability to swallow. According to the records reviewed, the pt has a history of current smoker, COPD, CHF, and possible TIA. She was an inpatient at [facility] recently and was discharged home. A few days later, she was readmitted to the hospital with low O2 sats and difficulty breathing. Per nursing, patient only slept for ~1 hours last night which patient attributes to being on steroids. This a.m., nursing reported that the patient's needed oxygen levels had doubled from 3L yesterday to 6L today and her WBC has risen from 9 on Wednesday to 13.2 today. She agreed to a dysphagia therapy/assessment during breakfast. 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 For this reason, a Modified Barium Swallow Study is recommended to rule out aspiration and obtain baseline of patient's swallow function . Subjective Observations Pt was seated in the chair in Radiololgy. She was aware of the purpose of the study and recalled a history of swallowing re: radiation tx to her neck area for Non-Hodgkin 's lymphoma. She also noted that she has had difficulty swallowing solids since her radiation treatment, c/o dry mouth, difficulty with swallowing hard/dry solids. She also reported that she had surgery to repair her cervical vertebrae from C2-T1 approximately 15 years ago Patient Positioning Position View Lateral Imaging Lateral View Textures Administered Trials Presented Thin Liquid via Spoon Thin Liquid via Cup Thin Liquid via Straw [place] Liquid via Cup Regular Textures Oral Phase Source: MBSIMP (TM) (C) Bolus Specific Scoring Grid Lip Closure WFL Tongue Control During Bolus Hold WFL Bolus Prep/Mastication Moderate Impairment Bolus Transport/Lingual Motion Moderate Impairment A/P Lingual Propulsion Delay Yes Oral Residue Moderate Impairment Additional Oral Phase Observations The pt had difficulr\ty with her oral prep of SOLIDS ( cookie with barium paste) only secondary to minimal saliva and dry mouth. She wears upper and lower dentures, which add to a stickiness of the bolus. Thr pt is very aware of her difficulty with mastication and therefore chooses to eat soft and moist foods that are easy to swallow. Pharyngeal Phase Source: MBSIMP (TM) (C) Bolus Specific Scoring Grid Delayed Initiation of Pharyngeal Swallow Yes Number of Seconds Delayed (seconds) Swallow response triggered when the head ofthe bolus is into the valleculla Tongue Base Strength/Range of Motion Mild Impairment Residue Along the Tongue Base Yes Clearance of Residue Along Tongue Base Minimal Impairment Laryngeal Elevation Moderate Impairment Anterior Hyoid Movement Moderate Impairment Epiglottic Range of Motion Mild Impairment Vallecular Residue Yes Clearance of Vallecular Residue Moderate Impairment Laryngeal Vestibular Closure Mild Impairment Pharyngeal Stripping Wave Severe Impairment Pharyngeal Contraction Severe Impairment Posterior Pharyngeal Wall Residue Yes Clearance of Posterior Pharyngeal Wall Moderate Impairment Residue Upper Esophageal Sphincter Opening Moderate Impairment Residue in the Pyriform Sinuses Yes Clearance of Residue in the Pyriform Moderate Impairment Sinuses Esophageal Clearance Upright Position Mild Impairment Pharyngoesophageal Backflow Observed No Additional Pharyngeal Phase Observations No valente aspiration was observed during the MBSS. However, the pt's pharyngeal phase observations include the following: Delayed swallow respose with no pharyngeal stripping/ contraction. This is most likey due to the effects of radiation on the pharyngeal tissue; an incomplete vestibule seal with epiglottic as evidenced by penetration of liquid into the laryngeal vestibule (with large sized bolus of liquids only. NO PENETRATION with small teaspoon sized swallows of thin liquids). Again, this is presumably due to the effect of the radiation therapy on the flexibility of the pharyngeal tissue. Minimal hyolaryngeal elevation and hyoid bone excursion were observed. Additionally there was pharyngeal residue observed on the base of the tongue, posterior pharyngeal wall, pyriform sinuses, vallecula as well as the anterior wall/ lamina of the thyroid cartilege. The pt did NOT cough or respond to the laryngotracheal penetration. It is possible that she may be experiencing silent aspiration of liquids when she drinks large and/or consecutive swallows. With regards to the solid trial (cookie with baruim paste), the pt had significant difficulty with completing the swallow. Large pieces of residue were observed on the upper posterior pharyngeal wall, in the vallecula, pyriform sinuses as well as at the level of the UES. Finally , upon viewing the video of the MBSS, what appeared to be a cricopharyngeal bar appeared to be impeding the path of the bolus and resulted in more pharyngeal residue. Liquids were provided to the pt to wash the solid through the pharynx. Several swallows of liquid were needed. It was recommended that the pt continue thin liquids ONLY drinking small amounts a sip at a time with frequent breaks . No consecutive/large swallows of thin liquids to prevent penetration into the laryngeal vestibule. This was explained to the pt who indicated she understood and agreed with the plan of care. A/P View Clinical Impressions Dysphagia Type Kylie-pharyngeal dysphagia Findings See descriptions of oral and pharyngeal phases above. Rehabilitation Potential Good Patient Appropriate for Therapy Yes Recommendations Diet Liquids Order Thin Diet Order Regular Medication Recommendation As Tolerated Additional Dietary Needs Reminders to Use Strategies Aspiration Precautions Recommended Precautions Upright at 90 Degrees Frequent Rest Periods Small Bites/Sips Supraglottic Swallow Treatment Plan Therapy Recommendations Inpatient Speech Therapy Compensatory Strategies Recommendations Sitting Upright (90 deg) Supraglottic Swallow Liquids from Straw Small Bites and Sips Additional Compensatory Strategies Thin straws only (no large Recommended volume straws in bedside cup) Short Term Goals The pt will safely tolerate current diet to meet hydration and nutritional needs without s/sx aspiration. The pt will implement safe swallow strategies to reduce risk of aspiration. PT education re: swallow function and safe swallow strategies will be provided to pt and family, addressing questions and/or concerns. Resin Remover Goals The pt will safely tolerste PO intake without s/sx aspiration. Placement Recommendation After Discharge [facility] Facility
--- NOTE | 2017-11-03 18:11 | ST.IPDYTX ---
Care Team Visit Care Team Role Provider Type Sofia Christie PA-C Family Provider Advanced Military Technician Primary Care Provider Specialty: Medical Address: [facility] [place], [address] Email: [email or web address] Maria Teresa Tinoco DO Emergency Provider Physician Specialty: Emergency Medicine Address: [address] [place] [address], [address] Email: Rashad Alvarez MD Admit Provider Physician Attending Provider Specialty: Internal Medicine Address: [address] [place] [address], [id number] Email: PSYCHOLOGY FELLOW Dysphagia Treatment PSYCHOLOGY FELLOW Dysphagia Treatment Start: 11/02/17 12:01 Freq: Status: Active Protocol: Document 11/03/17 17:56 LNK (Rec: 11/03/17 18:04 LNK [email or web address]) Dysphagia Treatment Session Time Visit Start Time 14:00 Visit Stop Time 14:30 Total Visit Minutes 30 Visit Information Visit Number 3 Setting Assessment Location Acute Care Visit Type Note Type Treatment Note Next Note Type Next Note Type Treatment Note Patient Information Subjective Observations Patient seen lying in bed following her MBSS. Respiratory therapy had just seen pt. Family members were also in the pt's room. Treatment Treatment Activities The results ofthe MBSS were explained to the pt and her family. Thin liquids at a single swallow @ a time with regular texture wit the pt allowed to order her preferred soft foods was recommended for diet. The risk of aspiration were explained to the pt re: lack of pharyngeal stripping as well as incomplete epiglottic seal and pharyngeal residue was explained to the pt and her family. Aspiration precautions and safe swallow recommendations were explained . All questions and concerns were addressed. Posted aspiration precautions above pt's bed. Assessment Patient Response to Treatment Good Rehab Potential Good Diet Recommendations Recommendations Continue Current Diet Liquids Order Thin Diet Order Regular Medication Recommendations As Tolerated Comments Pt prefers a soft and moist diet texture - she prefers to order her meals Aspiration Precautions Recommended Precautions Upright at 90 Degrees Frequent Rest Periods Small Bites/Sips Supraglottic Swallow Additional Precautions Thin straw only Treatment Plan Placement Recommendation after [facility]charge [facility]
--- NOTE | 2017-11-03 20:09 | PC.NURSE ---
Addendum entered by Catrachita Holliday R.N. 11/03/17 20:51: RT in room with patient providing instruction on how to use inhaler and nebulizer. Original Note: Addendum entered by Catrachita Holliday R.N. 11/03/17 20:16: Patient's lubricating eye drops were sent down to pharmacy, but I was unable to get a verbal order. Please return to patient upon DC. Original Note: PM Shift pt denying SOB, but reports mild pain with coughing. Patient's daughters (both RN's), brought in pt's inhalers that were prescribed at last admission. After review with on-call physician, pharmacy, and RT, patient needs to send home inhalers as we have all the RT inhalers she will need. In addition, the pharmacy sent back her home medication, PreserVision (eye vitamins), because it violates our herb and vitamin policy. On-call doctor said that patient should be okay with missing a couple days of doses, but to revisit the medication should her admission surpass a couple days. Patient ambulated to BR, 1PA/SBA with FWW. Patient felt steady and was able to have a medium BM. O2 at 4L and sats of 91-93%.
[2017-11-03] MEDS: FLUTICASONE/SALMETEROL 250/50 14 PUFF DISKUS INH (20:49)
[2017-11-03] MEDS: METOPROLOL 12.5 MG TABLET PO (21:21)
[2017-11-03] MEDS: TRAZODONE 50 MG TABLET PO (21:21)
[2017-11-04] VITALS (15 sets, daily range): BP systolic 120–160; BP diastolic 68–80; PULSE 81–109; RESP 14–20; TEMP 36.3–36.6; O2SAT 85–97
[2017-11-04] MEDS: LEVOTHYROXINE 75 MCG TABLET PO (05:57)
[2017-11-04] MEDS: UMECLIDINIUM/VILANTEROL 62.5/2 14 PUFF INHALER INH (08:20)
[2017-11-04] MEDS: FLUTICASONE/SALMETEROL 250/50 14 PUFF DISKUS INH ×2 (08:20→19:23)
[2017-11-04] MEDS: ALBUTEROL/IPRATROPIUM 3 ML AMPUL INH ×3 (08:20→19:23)
--- NOTE | 2017-11-04 09:00 | ST.IPDYTX ---
FINE WIRE DRAWER Dysphagia Treatment FINE WIRE DRAWER Dysphagia Treatment Start: 11/02/17 12:01 Freq: Status: Active Protocol: Document 11/04/17 15:28 TLC (Rec: 11/04/17 15:32 TLC [id number]) Dysphagia Treatment Session Time Total Visit Minutes 30 Visit Information Visit Number 4 Setting Assessment Location Acute Care Visit Type Note Type Treatment Note Next Note Type Next Note Type Treatment Note Patient Information Subjective Observations Patient was seen with breakfast following a breathing treatment with respiratory therapy. Treatment Treatment Activities Ongoing education provided to patient regarding results of MBSS and recommendations. Patient was able to recall recommendations from yesterday . She demonstrated compliance with recommendations, specifically slow rate and small bite/sips during the meal. Assessment Patient Response to Treatment Good Rehab Potential Good Assessment of Improvement Patient demonstrates understanding of and compliance with recommendations and precautions. She effectively self-monitors during meals. No signs or symptoms of aspiration were observed during the meal. Diet Recommendations Recommendations Continue Current Diet Liquids Order Thin Diet Order Regular Medication Recommendations As Tolerated Comments Pt to order meals independently Aspiration Precautions Recommended Precautions Upright at 90 Degrees Frequent Rest Periods Small Bites/Sips Supraglottic Swallow Additional Precautions Thin straw only Treatment Plan Placement Recommendation after Discharge Long-Term Facility
--- NOTE | 2017-11-04 09:06 | DIET.PN ---
Eating <25% meals. Sending meals w/added moisture to facilitate swallow. Add Ensure Enlive or other ONS - encourage to sip on between meals
[2017-11-04] MEDS: POLYETHYLENE GLYCOL 3350 17 GM POWD.PACK PO (10:18)
[2017-11-04] MEDS: GABAPENTIN 300 MG CAPSULE PO ×3 (10:18→20:35)
[2017-11-04] MEDS: ROSUVASTATIN 10 MG TABLET 20 MG PO (10:18)
[2017-11-04] MEDS: ENOXAPARIN 40 MG/0.4 ML SYRINGE SUBCUT (10:19)
[2017-11-04] MEDS: METOPROLOL 12.5 MG TABLET PO ×2 (10:19→20:35)
[2017-11-04] MEDS: predniSONE 20 MG TABLET 40 MG PO (10:19)
--- NOTE | 2017-11-04 10:35 | PT.IPTN ---
Current Diagnoses Chronic obstructive pulmonary disease with (acute) exacerbation (11/01/17) Physical Therapy Treatment Note M2 PT-IP Current Condition Start: 11/02/17 16:58 Freq: NEEDED Status: Active Protocol: Document 11/02/17 15:18 AB (Rec: 11/02/17 17:18 AB [id number]) Physical Therapy Current Condition Current Condition Evaluation Date 11/02/17 Treatment Diagnosis pneumonia Onset Date 11/01/17 Precautions Other Precautions O2 sat M3 PT-IP Subjective Start: 11/02/17 16:58 Freq: NEEDED Status: Active Protocol: Document 11/04/17 10:35 AB (Rec: 11/04/17 14:28 AB [email or web address]) Subjective Physical Therapy Visit Type Type Treatment Note Visit Start Time 10:35 Visit Stop Time 10:58 Total Visit Minutes 23 Number of DIVISION MERCHANDISE MANAGER Visits 2 Physical Therapy Visit Comments Patient Comments pt agreeable to do therapy M4 PT-IP Mobility and Gait Start: 11/02/17 16:58 Freq: NEEDED Status: Active Protocol: Document 11/04/17 10:35 AB (Rec: 11/04/17 14:28 AB [email or web address]) PT-Bed Mobility Assessment Sit to Supine Sit to Supine Minimal Assistance PT-Transfer Assessment Sit to and From Stand Sit to and from Stand Minimal Assistance Equipment Transfer Assistive Device Gait Belt Front Wheeled Walker Orthotic/Prosthetic Devices or Brace: No Transfers Transfer Destination Toilet Transfer Technique pt ambulated to the toilet using FWW Gait Assessment Gait Gait Assistance Required: Minimum Assistance Distance (Feet) (feet) 15 Able to Maintain Weight Bearing Status Yes During Gait Assistive Devices Assistive Device Gait Belt Front Wheeled Walker Orthotic/Prosthetic Devices or Brace: No Gait Deviations General Gait Pattern Antalgic Decreased Stride Length Decreased Feet Clearance Factors Limiting Gait Function Factors Limiting Gait Function Decreased Activity Tolerance Decreased Strength Poor Balance Poor Safety Awareness Respiratory Distress Comments Gait Comments pt requested to use the toilet first before doing ambulation . pt ambulated using FWW chair to toilet min A and cues ~ 12 ft. O2 sat prior to ambulation: 93% with 3L/min O2 . pt completed sit to stand from the toilet min A and cues and ambulated towards the sink using FWW min A. pt ambulated ~ 12 ft and stated that she is lightheaded . instructed pt to sit down. O2 sat decreased to ~ 83%. instructed pt with deep breathing. Pt then c/o nausea . O2 sat increased to ~ 93% in ~ 20 sec. Nurse informed. instructed pt to rest and lay back in bed and agreed. Left pt supine in bed. call light and table placed within reach. M5 PT-IP Objective Assessments Start: 11/02/17 16:58 Freq: NEEDED Status: Active Protocol: Document 11/02/17 15:18 AB (Rec: 11/02/17 17:18 AB [id number]) Orientation Orientation/Cognition Level of Alertness Alert Orientation Name Safety Awareness Decreased Safety Awareness Strength Upper Extremity Strength Assessment Within Functional Limits Lower Extremity Strength Assessment Bilaterally Impaired Knee 3+/5 M6 PT-IP Treatment Start: 11/02/17 16:58 Freq: NEEDED Status: Active Protocol: Document 11/04/17 10:35 AB (Rec: 11/04/17 14:28 AB [email or web address]) Physical Therapy Treatment Education Education Provided Safety M7 PT-IP Assessment and Plan Start: 11/02/17 16:58 Freq: NEEDED Status: Active Protocol: Document 11/04/17 10:35 AB (Rec: 11/04/17 14:28 AB [email or web address]) PT Summary Assessment and Plan Potential Rehabilitation Potential Fair Summary Impairments ROM Strength Balance Coordination Cognition Bed Mobility Transfers Gait Activity Tolerance Progress Towards Goals Slow Progress due to Activity Tolerance Assessment Summary pt requires one person assist with mobility and unable to tolerate much activity today with decrease in O2 sat with activity at 3L/min. Nurse aware. pt will require SNF rehab to improve strength and activity tolerance to increase function. Goals Bed Mobility Goal Standby Assistance Transfer Goal Standby Assistance Gait Goal Standby Assistance Gait Distance 100 Days to Meet Goals 3 Frequency of Treatment Frequency Of Treatment Once a Day Treatment Plan Physical Therapy Treatment Plan Bed Mobility Training Transfer Training Gait Training Therapeutic Exercise Balance Retraining Post Op Education Discharge Planning Hot or Cold Pack Neuromuscular Re-ed Coordination Retraining Manual Therapy Recommendations To Nursing Amount of Assist Needed 1 Person Assist Discharge Recommendations PT Discharge Recommendations SNF Rehab
--- NOTE | 2017-11-04 10:48 | CM.DPC ---
DCP Cont: Per MD, pt may be medically stable to d/c to SNF today. SW called [facility] about new referral and they confirmed that they are currently full and do not anticipate a discharge for at least a few days or week. SW met bedside with pt and with Dtr Kenyetta via phone and explained role again and gave update about [facility] and pt states that after further discussion with family and friends the preference would be to stay at local SNF so that they can visit more often. Preference sounds to be [facility] rehab due to location. SW called [facility] admissions with new referral and requested review. SW completed PASRR. Plan: SW to follow for [facility] review towards possible rehab placement today if medically stable. AMY Schreiber
--- NOTE | 2017-11-04 15:44 | OT.IP.TRT ---
Current Diagnoses Chronic obstructive pulmonary disease with (acute) exacerbation (11/01/17) Occupational Therapy Treatment Note M2 OT-IP Current Condition Start: 11/02/17 17:09 Freq: Status: Active Protocol: Document 11/02/17 17:10 [facility] (Rec: 11/02/17 17:30 [facility] [id number]) Occupational Therapy Current Condition Current Condition Evaluation Date 11/02/17 Treatment Diagnosis Hypoxia, respiratory failure Diagnosis Onset Date 11/01/17 M3 OT- IP Subjective and Pain Start: 11/02/17 17:09 Freq: Status: Active Protocol: Document 11/04/17 15:39 [facility] (Rec: 11/04/17 15:44 [facility] [id number]) OT- Subjective Occupational Therapy Visit Type Type Treatment Note Visit Start Time 11:30 Visit Stop Time 12:00 Total Visit Minutes 30 Occupational Therapy Visit Comments Patient/Caregiver Goals Pt wanting to try to shower. OT Pain Assessment Pain When Pain Assessed At Rest Pain Present Pain Present Denied Pain M4 OT- IP ADL's Start: 11/02/17 17:09 Freq: Status: Active Protocol: Document 11/02/17 17:10 [facility] (Rec: 11/02/17 17:30 [facility] [id number]) OT VAZ-Flcf-Rtejsuh General Evaluation Self-Feeding Ability Standby Assistance Areas Needing Assistance Opening Containers M6 OT- IP Functional Cognition Start: 11/02/17 17:09 Freq: Status: Active Protocol: Document 11/04/17 15:39 [facility] (Rec: 11/04/17 15:44 [facility] [id number]) Cognitive Factors Limiting Selfcare Function Cognitive Ability Level of Alertness Alert Patient Orientation Name Place Situation Attention Span Ability Capable of Focused Attention Capable of Sustained Attention Ability to Follow Commands Able to Follow One Step Commands Able to Follow Multi-Step Commands Memory Description Short Term Impaired Safety Awareness Underestimates Need for Assistance Problem Solving Ability Needs Assist to Identify Solutions Cognitive Comments Cognitive Assessment Comments Pt able to follow directions better and able to talk about her disposition needs and options for discharge. M7 OT- IP Mobility and Balance Start: 11/02/17 17:09 Freq: Status: Active Protocol: Document 11/04/17 15:39 [facility] (Rec: 11/04/17 15:44 [facility] [id number]) OT- Bed Mobility Assessment Rolling Type of Rolling Roll to Left Supine to Sit Supine to Sit Assist Contact Guard Assistance Sit to Supine Sit to Supine Assist Minimal Assistance OT-Transfer Assessment Sit to and From Stand Sit to and from Stand Minimal Assistance Transfers Transfer Ability Minimal Assistance Technique Transfer Destination Chair Transfer Technique Stand Step Pivot Devices Transfer Assistive Devices Gait Belt Front Wheeled Walker Comments Mobility Comments Pt overall balance better today to transfer but still gets very SOB and need more assist for stability as she tires. Pt O2 from 87-93%. Therefore would benefit from showering tomorrow if appropriate. M8 OT- IP Objective Assessments Start: 11/02/17 17:09 Freq: Status: Active Protocol: Document 11/02/17 17:10 [facility] (Rec: 11/02/17 17:30 [facility] [id number]) OT Gross Range of Motion Upper Extremity Range of Motion ROM Impairments Grossly WFL for needs. OT Strength Comments Strength Comments LUE weaker than RUE, needing assist for set-up. M9 OT- IP Assessment and Plan Start: 11/02/17 17:09 Freq: Status: Active Protocol: Document 11/04/17 15:39 [facility] (Rec: 11/04/17 15:44 [facility] [id number]) OT Summary Assessment and Plan Summary OT Impairments Strength Balance Coordination Functional Cognition Functional Mobility Grooming Dressing Toileting Bathing Toilet Transfers Shower Transfers Progress Towards Goals Slow Progress due to Medical Issues Slow Progress due to Activity Tolerance Slow Progress due to Cognition Goals Grooming Goal Standby Assistance Dressing Goal Contact Guard Assistance Toileting Goal Standby Assistance Bathing Goal Minimal Assistance Toilet Transfer Goal Standby Assistance Shower Transfer Goal Contact Guard Assistance Patient/Caregiver Education Goal Demonstrate Energy Conservation and Pacing Caregiver Independent Assisting Patient Days to Meet Goals 7 Frequency of Treatment Frequency Of Treatment Once a Day Treatment Plan OT Treatment Plan ADL Training Functional Cognition Training Functional Mobility Patient/Family Education Discharge Planning Discharge Recommendations OT Discharge Recommendations SNF Rehab Home Equipment Needs [facility] [place]
[2017-11-04] MEDS: ASPIRIN EC 81 MG TABLET PO (17:10)
--- NOTE | 2017-11-04 19:35 | PM.PN.1 ---
Subjective Date Patient Seen: 11/04/17 Time Patient Seen: 12:35 Interval history: A admitted after 1 day after discharge from the hospital was admitted on a Wednesday for TIA cerebellar unsteady gait and went home on Wednesday and came back on Wednesday for admission this time with difficulty breathing hypoxia requiring oxygen supplementation at home and she was treated for pneumonia there is some dysphagia and possible aspiration. Speech therapy has evaluated her She the patient is not very keen to go to [facility] but the daughter thinks that she cannot be managed at home the therapies are working to convince her that the best interest would be going to a [facility] facility Exam Vital Signs (past 8 hours): - 11/04/17 14:23 11/04/17 16:10 11/04/17 18:44 Temperature 97.6 F Pulse Rate 81 109 H Respiratory Rate 14 20 Blood Pressure 130/80 H Pulse Oximetry 93 88 L 91 Fraction of Inspired Oxygen 50 Oxygen Delivery Method Nasal Cannula,High Flow Nasal Cannula, Humidification Oxygen Flow Rate 8 Const General: cooperative, healthy appearing and comfortable Orientation: alert, awake and oriented x3 HENMT Head: normal to inspection, normocephalic and atraumatic Ears: hearing grossly normal bilaterally Nose: external nose normal Face and sinus: normal facial exam Eyes Eyelids: eyelids normal Conjunctivae: conjunctivae normal Sclera: sclerae normal Pupils: PERRL EOM: EOM intact bilaterally Neck Neck: normal visual inspection Thyroid: thyroid normal Resp Effort & Inspection: normal respiratory effort and able to speak in complete sentences Auscultation: bronchovesicular breath sounds Cardio Rate: regular rate Rhythm: regular rhythm Heart Sounds: S1 normal and S2 normal GI Inspection: normal to inspection Palpation: soft Back/Spine/Pelvis Back: normal to inspection and No back tenderness Skin General: no rashes or lesions noted Neuro General: alert, awake and oriented x3 Cranial Nerves: CN's II-XI intact bilaterally Cognition: normal cognition Speech: speech normal Motor: muscle tone normal throughout Extrem General: edema Psych Appearance: grossly normal Mood: congruent mood Affect: normal affect Attitude: cooperative Thought Process: normal Thought Content: normal Judgment: judgment good Objective Labs Result Diagrams: 11/03/17 04:38 11/03/17 04:38 Assessment & Plan Plan: Assessment/Plan Narrative: 1.Emphysema STILL SMOKING 2 RECENT HISTORY OF TIA CEREBELLAR 3. DYSPHAGIA SPEECH EVAL DONE 4. POSSIBLE PNEUMONIA BEING TREATED WITH LEVAQUIN IMPROVING DISPOSITION TO RESIDENTIAL FACILITY Time Spent With Patient Time with patient: less than 15 minutes
[2017-11-04] MEDS: SODIUM CHLORIDE 0.9% FLUSH 10 ML IV (20:34)
[2017-11-04] MEDS: TRAZODONE 50 MG TABLET PO (20:35)
[2017-11-04] MEDS: ACETAMINOPHEN 325 MG TABLET 650 MG PO (20:37)
--- NOTE | 2017-11-04 21:25 | PC.NURSE ---
SHIFT NOTE Received pt returning to chair after BRP with daughter's assist. SpO2 at 85-88% on 4L via high-flow NC. pt allowed time to rest and catch her breath but unable to bring O2 sats above 89%. respirations shallow and pt frequently talking to visitors at bedside. o2 gradually increased up to 8L with SpO2 at 91%. RT able to wean pt back down to 4L but pt again desats with activity when up to BRP or BSC. pt with intermittent, productive cough, states she may have pulled a muscle to L abdomen/groin area from all the coughing. PRN tylenol administered. call light within reach.
[2017-11-05] VITALS (10 sets, daily range): BP systolic 86–148; BP diastolic 50–78; PULSE 88–120; RESP 18–30; TEMP 36.6–38.1; O2SAT 4–96
[2017-11-05] MEDS: ALBUTEROL 2.5 MG/3 ML NEB (ADULT) INH (05:17)
[2017-11-05] MEDS: LEVOTHYROXINE 75 MCG TABLET PO (05:30)
[2017-11-05] MEDS: FLUTICASONE/SALMETEROL 250/50 14 PUFF DISKUS INH ×2 (08:13→19:09)
[2017-11-05] MEDS: ALBUTEROL/IPRATROPIUM 3 ML AMPUL INH ×3 (08:13→19:09)
[2017-11-05] MEDS: UMECLIDINIUM/VILANTEROL 62.5/2 14 PUFF INHALER INH (08:13)
[2017-11-05] MEDS: ENOXAPARIN 40 MG/0.4 ML SYRINGE SUBCUT (08:35)
[2017-11-05] MEDS: METOPROLOL 12.5 MG TABLET PO ×2 (08:35→20:49)
[2017-11-05] MEDS: GABAPENTIN 300 MG CAPSULE PO ×3 (08:36→20:49)
[2017-11-05] MEDS: predniSONE 20 MG TABLET 40 MG PO (08:36)
[2017-11-05] MEDS: POLYETHYLENE GLYCOL 3350 17 GM POWD.PACK PO (08:36)
[2017-11-05] MEDS: ROSUVASTATIN 10 MG TABLET 20 MG PO (08:36)
[2017-11-05] MEDS: SODIUM CHLORIDE 0.9% FLUSH 10 ML IV ×3 (08:37→20:49)
[2017-11-05] MEDS: ACETAMINOPHEN 325 MG TABLET 650 MG PO ×2 (08:37→15:01)
--- NOTE | 2017-11-05 09:24 | SLP.IPNOTE ---
Attempted to see patient for dysphagia therapy this AM. Patient refusing stating she doesn't feel well, did not have a great night and would like to rest. Observed wet cough following a sip of coffee, repositioned patient in bed to a more upright posture. Will attempt to see patient this afternoon if agreeable.
--- NOTE | 2017-11-05 11:15 | PT.IPTN ---
Current Diagnoses Chronic obstructive pulmonary disease with (acute) exacerbation (11/01/17) Physical Therapy Treatment Note M2 PT-IP Current Condition Start: 11/02/17 16:58 Freq: NEEDED Status: Active Protocol: Document 11/02/17 15:18 [facility] (Rec: 11/02/17 17:18 [facility] [id number]) Physical Therapy Current Condition Current Condition Evaluation Date 11/02/17 Treatment Diagnosis pneumonia Onset Date 11/01/17 Precautions Other Precautions O2 sat M3 PT-IP Subjective Start: 11/02/17 16:58 Freq: NEEDED Status: Active Protocol: Document 11/05/17 11:15 [facility] (Rec: 11/05/17 11:39 [facility] [id number]) Subjective Physical Therapy Visit Type Type Treatment Note Visit Start Time 11:00 Visit Stop Time 11:15 Total Visit Minutes 15 Number of CHLORINE OPERATOR Visits 1 Physical Therapy Visit Comments Patient Comments Pt needs to use BSC. M4 PT-IP Mobility and Gait Start: 11/02/17 16:58 Freq: NEEDED Status: Active Protocol: Document 11/05/17 11:15 [facility] (Rec: 11/05/17 11:39 [facility] [id number]) PT-Bed Mobility Assessment Scooting Scooting to Edge of Bed Contact Guard Assistance PT-Transfer Assessment Sit to and From Stand Sit to and from Stand Contact Guard Assistance Minimal Assistance Use of Upper Extremities Equipment Transfer Assistive Device Gait Belt Front Wheeled Walker Transfers Transfer Destination Chair Bedside Commode Comments Mobility Comments Pt on EOB with OT. O2 on 9 L. with 79-85% M5 PT-IP Objective Assessments Start: 11/02/17 16:58 Freq: NEEDED Status: Active Protocol: Document 11/02/17 15:18 [facility] (Rec: 11/02/17 17:18 AB [id number]) Orientation Orientation/Cognition Level of Alertness Alert Orientation Name Safety Awareness Decreased Safety Awareness Strength Upper Extremity Strength Assessment Within Functional Limits Lower Extremity Strength Assessment Bilaterally Impaired Knee 3+/5 M6 PT-IP Treatment Start: 11/02/17 16:58 Freq: NEEDED Status: Active Protocol: Document 11/04/17 10:35 [facility] (Rec: 11/04/17 14:28 [facility] [id number]) Physical Therapy Treatment Education Education Provided Safety M7 PT-IP Assessment and Plan Start: 11/02/17 16:58 Freq: NEEDED Status: Active Protocol: Document 11/05/17 11:15 [facility] (Rec: 11/05/17 11:39 [facility] [id number]) PT Summary Assessment and Plan Summary Assessment Summary Pt needing assist with mobility. She had increase in fatigue and decrease in O2 sats. She C/O of light headiness with transfer from BSC to chair. Frequency of Treatment Frequency Of Treatment Once a Day Treatment Plan Physical Therapy Treatment Plan Bed Mobility Training Transfer Training Gait Training Therapeutic Exercise Balance Retraining Post Op Education Discharge Planning Hot or Cold Pack Neuromuscular Re-ed Coordination Retraining Manual Therapy Recommendations To Nursing Amount of Assist Needed 1 Person Assist Discharge Recommendations PT Discharge Recommendations SNF Rehab
--- NOTE | 2017-11-05 11:40 | PC.NURSE ---
Addendum entered by Angeline Vidal R.N. 11/05/17 12:13: DC - reviewed dc instructions with pt and spouse, scripts provided, tsft to own wc and escorted to family car with clothing, bags, cell phone. Original Note: AM NOTE - alert, texting on phone, sob at rest and 02 sat 5l HF 82-85%, bs expir wheeze upper, dim lower, congested, occass productive cough, changed to ear probe and RT notified, tmt provided, incr the HF cannula to 10L to maintain 91-92%, hr tachy 106, some discomfort l torso when coughing, declines tylenol at this time, pt wanted assist into br, enc just to mobilize bsc, voided and ret bed, some tremor noted after RT tmt, warm blanket provided, later am, phys therapy in and pt deshawn up to chair, sat will go down to mid 80's with exhertion and return to 91-92% discussed incr 02 req with this am, no new orders, to review.
--- NOTE | 2017-11-05 11:50 | OT.IP.TRT ---
Current Diagnoses Chronic obstructive pulmonary disease with (acute) exacerbation (11/01/17) Occupational Therapy Treatment Note M2 OT-IP Current Condition Start: 11/02/17 17:09 Freq: Status: Active Protocol: Document 11/02/17 17:10 [facility] (Rec: 11/02/17 17:30 [facility] [id number]) Occupational Therapy Current Condition Current Condition Evaluation Date 11/02/17 Treatment Diagnosis Hypoxia, respiratory failure Diagnosis Onset Date 11/01/17 M3 OT- IP Subjective and Pain Start: 11/02/17 17:09 Freq: Status: Active Protocol: Document 11/05/17 11:42 [facility] (Rec: 11/05/17 11:49 [facility] [id number]) OT- Subjective Occupational Therapy Visit Type Type Treatment Note Visit Start Time 10:50 Visit Stop Time 11:20 Total Visit Minutes 30 Occupational Therapy Visit Comments Patient/Caregiver Goals Pt wanting to get up and use the bathroom. OT Pain Assessment Pain When Pain Assessed At Rest Pain Present Pain Present Pain Reported M4 OT- IP ADL's Start: 11/02/17 17:09 Freq: Status: Active Protocol: Document 11/05/17 11:42 [facility] (Rec: 11/05/17 11:49 [facility] [id number]) OT ADL-Toileting General Evaluation Toileting Ability Maximum Assistance Areas Needing Assistance Manage Clothing Perform Perineal Hygiene Comments OT Toileting Comments Due to decreased O2 level on ( L O2, therapist needing to assist fpt for needs. M6 OT- IP Functional Cognition Start: 11/02/17 17:09 Freq: Status: Active Protocol: Document 11/05/17 11:42 [facility] (Rec: 11/05/17 11:49 [facility] [id number]) Cognitive Factors Limiting Selfcare Function Cognitive Ability Level of Alertness Alert Patient Orientation Name Place Situation Attention Span Ability Capable of Focused Attention Capable of Sustained Attention Ability to Follow Commands Able to Follow One Step Commands Able to Follow Multi-Step Commands Memory Description Short Term Impaired Safety Awareness Underestimates Need for Assistance Problem Solving Ability Needs Assist to Identify Solutions M7 OT- IP Mobility and Balance Start: 11/02/17 17:09 Freq: Status: Active Protocol: Document 11/05/17 11:42 [facility] (Rec: 11/05/17 11:49 [facility] [id number]) OT- Bed Mobility Assessment Rolling Type of Rolling Roll to Right Supine to Sit Supine to Sit Assist Minimal Assistance Bedrails OT-Transfer Assessment Sit to and From Stand Sit to and from Stand Minimal Assistance Transfers Transfer Ability Minimal Assistance Technique Transfer Destination Bedside Commode Chair Transfer Technique Stand Step Pivot Devices Transfer Assistive Devices Gait Belt Front Wheeled Walker Comments Mobility Comments Pt decreased endurance today and now on 9L of o2. After getting to edge of bed , pt dropped from 91% to 81%. M8 OT- IP Objective Assessments Start: 11/02/17 17:09 Freq: Status: Active Protocol: Document 11/02/17 17:10 [facility] (Rec: 11/02/17 17:30 [facility] [id number]) OT Gross Range of Motion Upper Extremity Range of Motion ROM Impairments Grossly WFL for needs. OT Strength Comments Strength Comments LUE weaker than RUE, needing assist for set-up. M9 OT- IP Assessment and Plan Start: 11/02/17 17:09 Freq: Status: Active Protocol: Document 11/05/17 11:42 [facility] (Rec: 11/05/17 11:49 [facility] [id number]) OT Summary Assessment and Plan Summary Progress Towards Goals Slow Progress due to Pain Slow Progress due to Medical Issues Slow Progress due to Activity Tolerance Assessment Summary Pt continues to have decreased endurance and now on 9L. Pt would benefit from skilled rehab when medically stable. Goals Days to Meet Goals 7 Frequency of Treatment Frequency Of Treatment Once a Day Treatment Plan OT Treatment Plan ADL Training Functional Cognition Training Functional Mobility Patient/Family Education Discharge Planning Discharge Recommendations OT Discharge Recommendations SNF Rehab Home Equipment Needs [facility] [place]
--- NOTE | 2017-11-05 12:22 | PC.NURSE ---
Addendum entered by Angeline Vidal R.N. 11/05/17 15:08: RESP/PAIN - assisted up from chair, to bsc w/small void, back to bed, states discomfort l torso 3-4 on scale 0/10, given 650mg po tylenol in addition to her scheduled gabapentin. 02 sat remaining 89-92% during exhertion. Original Note: Addendum entered by Angeline Vidal R.N. 11/05/17 13:54: Resp - RT in and 02 delivery system changed to humidified warmed 02 36% FI02, 25L, sat remain 95-96%, enc freq use flutter valve. Original Note: AM NOTE - pt awake, texting on phone, sob at rest and 02 sat 82-85% on 5L HF, bs with upper wheeze, dim lower, occassional congested cough, RT notified and in for tmts, replaced the 02 probe to l ear for consitant measurements, adjusted HF to 10L to maintain 91-92%, pt did ask ambul br, advised to reduce activity and assisted to bsc to void, ret to bed, hr elev 106 and 1 teens during exhertion, some discomfort l torso when coughing, declines tylenol at this time, later when recovered, phys therapy in and pt up to bsc w/void and bm then tsf to chair, sat did decline to mid 80's and then slowly ret to 92% with the HF 10L, RT continuing to monitor and discussed 02 incr requirements with , no new orders rec'd, RT will do blood gas
[2017-11-05 12:54] LABS: HCO3 ABG 31 mmol/L (23-27); Oxygen Saturation ABG 92 % (95-100); PCO2 ABG 40.9 mmHg (35-45); PO2 ABG 59 mmHg (80-105); TCO2 ABG 33 mmol/L (23-27); pH ABG 7.49 (7.35-7.45)
[2017-11-05 12:55] LABS: Fractionated Inspired Oxygen 10
--- NOTE | 2017-11-05 14:05 | ST.IPDYTX ---
Care Team Visit Care Team Role Provider Type Sofia Christie PA-C Family Provider Advanced Order Detailer Primary Care Provider Specialty: Medical Address: [address] [place], [address] Email: [email or web address] Maria Teresa Tinoco DO Emergency Provider Physician Specialty: Emergency Medicine Address: [address] [place] [address], [id number] Email: Rashad Alvarez MD Admit Provider Physician Attending Provider Specialty: Internal Medicine Address: [address] [place], [address] Email: CYTOPATHOLOGIST Dysphagia Treatment CYTOPATHOLOGIST Dysphagia Treatment Start: 11/02/17 12:01 Freq: Status: Active Protocol: Document 11/05/17 13:58 [facility] (Rec: 11/05/17 14:05 [facility] [id number]) Dysphagia Treatment Session Time Total Visit Minutes 20 Visit Information Visit Number 5 Setting Assessment Location Acute Care Visit Type Note Type Treatment Note Next Note Type Next Note Type Treatment Note Patient Information Subjective Observations Patient was seen by RT who switched her to humidified, warmed O2 prior to session. She was sitting up in the chair at bedside with her daughter present in room. Treatment Treatment Activities Education provided to daughter and patient regarding importance of aspiration precautions, specifically upright position for all intake. Patient was observed to be drinking coughing while lying down in bed this morning . Explained risks of poor positioning. Also discussed importance of stringent oral care, which daughter reports patient is diligent with. Trials of water via wide straw were provided. Patient able to demonstrate good self- monitoring of controlled sips. No coughing or other signs of aspiration observed during trials. Assessment Rehab Potential Good Assessment of Improvement Patient has had decrease in respiratory status since yesterday with increased productive coughing during ambulation per PT. Patient is compliant with all recommendations, but needs reminders for maintaining an upright posture during meals. Diet Recommendations Recommendations Continue Current Diet Liquids Order Thin Diet Order Regular Medication Recommendations As Tolerated Comments Pt to order meals independently Aspiration Precautions Recommended Precautions Upright at 90 Degrees Frequent Rest Periods Small Bites/Sips Additional Precautions Straws Okay Treatment Plan Placement Recommendation after Discharge [facility]irement Facility
[2017-11-05] MEDS: SODIUM CHLORIDE 0.9% 250 ML 21 ML IV (16:33)
[2017-11-05] MEDS: levoFLOXacin 750 MG/150 ML PIGGYBACK 100 MG IV (16:33)
[2017-11-05] MEDS: ASPIRIN EC 81 MG TABLET PO (17:36)
--- NOTE | 2017-11-05 19:53 | PM.PN.1 ---
Subjective Date Patient Seen: 11/05/17 Time Patient Seen: 10:45 Interval history: 77-year-old male with complex medical problems admitted with acute on chronic hypoxic and hypercapnic respiratory failure secondary to COPD/CHF exacerbation. This is recurrent admission after initial hospital stay for TIA/ataxic gait earlier this month. No events since admission, overall reports ongoing clinical improvement. Exam Vital Signs (past 8 hours): - 11/05/17 12:04 11/05/17 13:37 11/05/17 15:49 Temperature 98.4 F Pulse Rate 88 92 H Respiratory Rate 30 H 20 Blood Pressure 86/50 L Pulse Oximetry 92 96 93 11/05/17 19:11 Temperature Pulse Rate 90 Respiratory Rate 18 Blood Pressure Pulse Oximetry 92 Fraction of Inspired Oxygen 35 Oxygen Delivery Method Heated High Flow Oxygen Flow Rate 25 Narrative Exam Narrative: Constitutional: Well-nourished well-developed male in mild respiratory distress he is alert and oriented x3 HEENT: Unremarkable exam Eyes: PERRLA, EOMI Neck: Supple, no lymphadenopathy no jugular venous distention Cardiovascular: Regular rhythm rate, no murmur Pulmonary: Distant breath sounds, improved aeration bilaterally, no obvious are auscultation of wheezing Gastrointestinal: Abdomen is soft nontender nondistended bowel sounds present no discernible organomegaly Extremities: Warm to touch, no edema Skin: No skin lesions, no rashes Objective Labs Result Diagrams: 11/03/17 04:38 11/03/17 04:38 Labs: Laboratory Results - last 24 hr 11/05/17 12:36 ABG pH 7.49 H ABG pCO2 40.9 ABG pO2 59 L ABG HCO3 31 H ABG Total CO2 33 H ABG O2 Saturation 92 L ABG Base Excess 8.0 H FiO2 10 Assessment & Plan Plan: Assessment/Plan Narrative: 1. Acute on chronic hypoxic and hypercapnic respiratory failure: Secondary to COPD/CHF exacerbation, resolving Continue to treat underlying medical problems 2. COPD/emphysema with exacerbation: Resolving, continue breathing treatments, oral expectorants, steroids per tapering scheme, empiric antibiotic therapy. 3. Congestive heart failure, acute on chronic, diastolic: Resolving, measurements as above. Continue dietary therapy. 4. Peripheral vascular disease with recent history of TIA: There is no new clinical symptoms to suggest CVA, continue anti-platelet agents and statins. 5. Deconditioning/debility: PT OT to evaluate and treat daily, anticipate possible disposition to correction facility.
--- NOTE | 2017-11-05 19:58 | P.PN_ITS ---
Subjective Date Patient Seen: 11/05/17 Time Patient Seen: 10:45 Interval history: 77-year-old male with complex medical problems admitted with acute on chronic hypoxic and hypercapnic respiratory failure secondary to COPD/ CHF exacerbation. This is recurrent admission after initial hospital stay for TIA/ataxic gait earlier this month. No events since admission, overall reports ongoing clinical improvement. Exam Vital Signs (past 8 hours): - 11/05/17 12:04 11/05/17 13:37 11/05/17 15:49 Temperature 98.4 F Pulse Rate 88 92 H Respiratory Rate 30 H 20 Blood Pressure 86/50 L Pulse Oximetry 92 96 93 11/05/17 19:11 Temperature Pulse Rate 90 Respiratory Rate 18 Blood Pressure Pulse Oximetry 92 Fraction of Inspired Oxygen 35 Oxygen Delivery Method Heated High Flow Oxygen Flow Rate 25 Narrative Exam Narrative: Constitutional: Well-nourished well-developed male in mild respiratory distress he is alert and oriented x3 HEENT: Unremarkable exam Eyes: PERRLA, EOMI Neck: Supple, no lymphadenopathy no jugular venous distention Cardiovascular: Regular rhythm rate, no murmur Pulmonary: Distant breath sounds, improved aeration bilaterally, no obvious are auscultation of wheezing Gastrointestinal: Abdomen is soft nontender nondistended bowel sounds present no discernible organomegaly Extremities: Warm to touch, no edema Skin: No skin lesions, no rashes Objective Labs Result Diagrams: 11/03/17 04:38 11/03/17 04:38 Labs: Laboratory Results - last 24 hr 11/05/17 12:36 ABG pH 7.49 H ABG pCO2 40.9 ABG pO2 59 L ABG HCO3 31 H ABG Total CO2 33 H ABG O2 Saturation 92 L ABG Base Excess 8.0 H FiO2 10 Assessment & Plan Plan: Assessment/Plan Narrative: 1. Acute on chronic hypoxic and hypercapnic respiratory failure: Secondary to COPD/CHF exacerbation, resolving Continue to treat underlying medical problems 2. COPD/emphysema with exacerbation: Resolving, continue breathing treatments , oral expectorants, steroids per tapering scheme, empiric antibiotic therapy. 3. Congestive heart failure, acute on chronic, diastolic: Resolving, measurements as above. Continue dietary therapy. 4. Peripheral vascular disease with recent history of TIA: There is no new clinical symptoms to suggest CVA, continue anti-platelet agents and statins. 5. Deconditioning/debility: PT OT to evaluate and treat daily, anticipate possible disposition to senior care facility.
[2017-11-05] MEDS: TRAZODONE 50 MG TABLET PO (20:49)
--- NOTE | 2017-11-05 21:59 | PC.NURSE ---
SHIFT NOTE A&Ox3, pleasant and cooperative with care. pt continues to desat with any activity but able to recover after resting. spo2 at 91-95% on heated high-flow O2, 25-27L, FiO2 at 36%. fine crackles to bilateral lower lobes. pt started on IV levaquin per MD. pt continues to have intermittent productive cough and L rib/abdominal pain from coughing. call light within reach.
[2017-11-06] VITALS (16 sets, daily range): BP systolic 107–134; BP diastolic 48–81; PULSE 87–102; RESP 12–26; TEMP 36.6–37.5; O2SAT 84–98
--- NOTE | 2017-11-06 | DI.CT.S_ITS ---
PROCEDURE: CT CHEST WO CON INDICATIONS: Hospital acqiuired aspiration PNA TECHNIQUE: Noncontrast 5 mm thick sections acquired from the pulmonary apices to the posterior costophrenic angles. 7 mm thick coronal and sagittal MIP reformats were then acquired. For radiation dose reduction, the following was used: automated exposure control, adjustment of mA and/or kV according to patient size. COMPARISON: [place], [place], PET/CT SKULL BASE TO MID THIGH, 01/08/2017, 11:23. FINDINGS: Image quality: Excellent. Lungs and pleura: Moderate apical predominant emphysema. Severe air space opacity within the left lower lobe. Moderate airspace opacity within the right lower lobe. Mild dependent airspace opacity within the right upper lobe. Mild scarring within the left apex. No pleural effusions or pneumothorax. Central and peripheral airways are patent and normal in caliber. Mediastinum: Heart size is normal. There is calcification of the coronary vasculature. No pericardial effusion. No mediastinal adenopathy by size criteria. Thoracic aorta and central pulmonary arteries are normal in size. Esophagus is normal in caliber. No hiatal hernia. Bones and chest wall: N median sternotomy. o suspicious bony lesions. No vertebral body compression fractures. No axillary or supraclavicular adenopathy by size criteria. Thyroid gland is within normal limits. Abdomen: Visualized portions of the upper abdomen demonstrate a low density left adrenal nodule measuring 15 mm and -12 Hounsfield units. IMPRESSION: 1. Bilateral left greater than right lower lobe predominant pneumonia. 2. Followup chest CT in 1 month is recommended to ensure resolution and exclude underlying malignancy. 3. Left adrenal adenoma. 4. Coronary artery disease. Dictated by: Cornell Molina M.D. on 11/06/2017 at 13:36 Approved by: Cornell Molina M.D. on 11/06/2017 at 13:38
[2017-11-06] MEDS: LEVOTHYROXINE 75 MCG TABLET PO (04:57)
[2017-11-06] MEDS: ACETAMINOPHEN 325 MG TABLET 650 MG PO ×2 (04:57→17:35)
[2017-11-06 06:27] LABS: Add Manual Diff / Slide Review NO; Basophils Percent Auto 0.1 % (0-2); Eosinophils Percent Auto 0.1 % (2-4); Hemoglobin 12.2 g/dL (12.0-16.0); Lymphocytes Percent Auto 5.5 % (25-40); Mean Corpuscular Hemoglobin 30.4 PG (26-34); Mean Corpuscular Volume 89.5 fL (80-100); Monocytes Percent Auto 1.4 % (3-14); Neutrophils Absolute Auto 23100 /uL (3000-5900); Neutrophils Percent Auto 92.9 % (50-75); Platelet Count 243 X10^3/uL (150-400); Red Blood Cell Count 4.02 X10^6/uL (4.0-5.2); Red Cell Distribution Width 14.7 % (11.6-14.8); White Blood Cell Count 24.8 X10^3/uL (4.5-11.0)
--- NOTE | 2017-11-06 06:31 | PC.NURSE ---
Pug Mill Operator Helper Note: Alert, oriented X3. Remains on O2 via heated high flow nasal cannula. Pt able to stand and use bedside commode but having shortness of breath with exertion. Medicated for discomfort with Tylenol at 0500.
[2017-11-06 06:36] LABS: Blood Urea Nitrogen 18 mg/dL (7-17); Calcium 8.7 mg/dL (8.4-10.2); Carbon Dioxide 34 mmol/L (22-32); Chloride 92 mmol/L (98-107); Estimated Glomerular Filt Rate > 60.0 mL/min (>60); Glucose 86 mg/dL (80-110); HEMOLYSIS < 15 (0-50); Magnesium 1.9 mg/dL (1.6-2.3); Potassium 4.1 mmol/L (3.4-5.1); Sodium 130 mmol/L (137-145)
[2017-11-06] MEDS: ALBUTEROL/IPRATROPIUM 3 ML AMPUL INH ×3 (08:52→19:43)
[2017-11-06] MEDS: FLUTICASONE/SALMETEROL 250/50 14 PUFF DISKUS INH ×2 (08:52→19:43)
[2017-11-06] MEDS: ENOXAPARIN 40 MG/0.4 ML SYRINGE SUBCUT (09:09)
[2017-11-06] MEDS: GABAPENTIN 300 MG CAPSULE PO (09:09)
[2017-11-06] MEDS: POLYETHYLENE GLYCOL 3350 17 GM POWD.PACK PO (09:10)
[2017-11-06] MEDS: METOPROLOL 12.5 MG TABLET PO ×2 (09:10→21:59)
[2017-11-06] MEDS: ROSUVASTATIN 10 MG TABLET 20 MG PO (09:10)
[2017-11-06] MEDS: predniSONE 20 MG TABLET 40 MG PO (09:10)
[2017-11-06] MEDS: SODIUM CHLORIDE 0.9% FLUSH 10 ML IV (09:49)
--- NOTE | 2017-11-06 09:56 | PC.NURSE ---
AM NOTE - up in chair for breakfast, RT in this am and adjusted the heated high flow 02 to 35%, pt complained incr sob and difficulty breathing with 02 sat 84%, and nasal pressure, .RT contacted and here to adjust and pt improved at settings FIO2 35%, oxygen 25% with sat returning to 91-92% after tmt provided, bs dim> l lower, hr irreg 94
--- NOTE | 2017-11-06 10:53 | PM.PN.1 ---
Subjective Date Patient Seen: 11/06/17 Time Patient Seen: 10:00 Interval history: 77-year-old male with complex medical problems admitted with acute on chronic hypoxic and hypercapnic respiratory failure secondary to COPD/CHF exacerbation, possibly quiet presumably aspiration pneumonia, left more than right. In spite of ongoing stay in the hospital release progressive degeneration, persistent hypoxemia, leukocytosis secondary to bilateral hospital-acquired pneumonia. Patient is getting transferred to ICU for further management out of concerns for evolving sepsis. Exam Vital Signs (past 8 hours): - 11/06/17 04:51 11/06/17 07:00 11/06/17 08:48 Temperature 99.5 F 98.5 F Pulse Rate 102 H 93 H 90 Respiratory Rate 16 16 12 Blood Pressure 116/59 L 107/48 L Pulse Oximetry 84 L 90 L 11/06/17 09:41 Temperature Pulse Rate Respiratory Rate Blood Pressure Pulse Oximetry 92 Fraction of Inspired Oxygen 35 Oxygen Delivery Method Heated High Flow,Humidification Oxygen Flow Rate 25 Narrative Exam Narrative: Constitutional: Well-nourished well-developed male in moderate respiratory distress , requiring use of high-flow oxygen via nasal cannula Patient remains alert and oriented x3. HEENT: Limited exam, complicate his high-flow oxygen via nasal cannula. Eyes: PERRLA, EOMI Neck: Supple, no lymphadenopathy no jugular venous distention Cardiovascular: Distant heart sounds, with mild sinus tachycardia, no discernible murmurs. Pulmonary: Coarse breathing bilaterally left more than right. There were rales over the left lingular/lower lobe was detected Gastrointestinal: Abdomen is soft nontender nondistended bowel sounds present no discernible organomegaly Extremities: Warm to touch, no edema Skin: No skin lesions, no rashes Objective Imaging Chest x-ray: Radiologist's impression: IMPRESSION: Increased vascularity as above suggestive of edema as well as trace effusions. Focal opacities are noted in the right middle and lower lobe suggestive of either focal edema or developing airspace disease such as pneumonia and/or atelectasis. Dictated by: Cesia Arias M.D. on 11/01/2017 at 20:38 Approved by: Cesia Arias M.D. on 11/01/2017 at 20:39 ECG: Echocardiogram: Interpretation Summary Borderline concentric left ventricular hypertrophy with ejection fraction 60- 65%. Grade I diastolic dysfunction. Moderately dilated left atrium. 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 Mild mitral annular calcification. Mild to moderate mitral regurgitation. Mild tricuspid regurgitation. The right ventricular systolic pressure is estimated at 54 mmHg assuming a right atrial pressure of 3 mm Hg. Moderate pulmonary hypertension. Electronically signed by: Adelaida Bello on Reading Physician:11/02/2017 05:31 PM Labs Result Diagrams: 11/06/17 05:43 11/06/17 05:43 Labs: Laboratory Results - last 24 hr 11/05/17 11/06/17 11/06/17 12:36 05:43 05:43 WBC 24.8 H RBC 4.02 Hgb 12.2 Hct 36.0 MCV 89.5 MCH 30.4 MCHC 34.0 RDW 14.7 Plt Count 243 Neut % (Auto) 92.9 H Lymph % (Auto) 5.5 L [place] % (Auto) 1.4 L Eos % (Auto) 0.1 L Baso % (Auto) 0.1 Neut # (Auto) 29889 H ABG pH 7.49 H ABG pCO2 40.9 ABG pO2 59 L ABG HCO3 31 H ABG Total CO2 33 H ABG O2 Saturation 92 L ABG Base Excess 8.0 H FiO2 10 Sodium 130 L Potassium 4.1 Chloride 92 L Carbon Dioxide 34 H BUN 18 H Creatinine 0.50 L Estimated GFR > 60.0 BUN/Creatinine Ratio 36.0 H Glucose 86 Calcium 8.7 Magnesium 1.9 B-Natriuretic Peptide 252.0 H 11/05/17 12:36 ABG pH 7.49 H ABG pCO2 40.9 ABG pO2 59 L ABG HCO3 31 H ABG Total CO2 33 H ABG O2 Saturation 92 L ABG Base Excess 8.0 H FiO2 10 Assessment & Plan Plan: Assessment/Plan Narrative: 1. Acute on chronic hypoxic and hypercapnic respiratory failure: Multifactorial, persist/progressing. Presenting with clinical symptoms of COPD/CHF exacerbation, currently is evidence of rapidly evolving hospital-acquired possibly aspiration pneumonia involving most of the left lung, and resultant sepsis. Patient requiring Dr. supported by high-flow oxygen via nasal cannula. Request repeat ABG , unenhanced CT, transfer patient to ICU for further management. 2. Bilateral, left more than right, nosocomial aspiration pneumonia: Persistent and rapidly evolving. Change current antibiotic therapy to combination of IV clindamycin and cefepime. Continue breathing treatments, oral expectorant, symptomatic and supportive care. Possible need for intubation and initiation of mechanical ventilation is not ruled out. Attending family conference with the patient's daughter to discuss management options. 3. Sepsis: Secondary to above. Add treatment with stress dose of IV hydrocortisone, consider need of possible pressure support. Continue to treat underlying medical problems 4. COPD/emphysema with exacerbation: Persist/ slowly resolving, continue breathing treatments, oral expectorants, empiric antibiotic therapy as above. 3. Congestive heart failure, acute on chronic, diastolic: Persistent. Interval echocardiogram with evidence of left ventricular hypertrophy with diastolic dysfunction, moderate pulmonary hypertension. Start patient on diuresis IV Lasix. Consider starting patient on pressor support to address low normal blood pressure readings. 5. Peripheral vascular disease with recent history of TIA: There is no new clinical symptoms to suggest CVA, continue anti-platelet agents and statins. 6. Protein calorie malnutrition, moderate to severe: Multifactorial. Attending bandoleer packer consultation. 7. Deconditioning/debility: PT OT to evaluate and treat daily, anticipate possible disposition to residential facility. Time Spent With Patient Time with patient: Greater than 35 minutes
[2017-11-06] MEDS: CEFEPIME 2 GM in SODIUM CHLORIDE 0.9% 100 ML 200 ML IV ×2 (11:03→22:33)
--- NOTE | 2017-11-06 11:09 | P.PN_ITS ---
Subjective Date Patient Seen: 11/06/17 Time Patient Seen: 10:00 Interval history: 77-year-old male with complex medical problems admitted with acute on chronic hypoxic and hypercapnic respiratory failure secondary to COPD/ CHF exacerbation, possibly quiet presumably aspiration pneumonia, left more than right. In spite of ongoing stay in the hospital release progressive degeneration, persistent hypoxemia, leukocytosis secondary to bilateral hospital-acquired pneumonia. Patient is getting transferred to ICU for further management out of concerns for evolving sepsis. Exam Vital Signs (past 8 hours): - 11/06/17 04:51 11/06/17 07:00 11/06/17 08:48 Temperature 99.5 F 98.5 F Pulse Rate 102 H 93 H 90 Respiratory Rate 16 16 12 Blood Pressure 116/59 L 107/48 L Pulse Oximetry 84 L 90 L 11/06/17 09:41 Temperature Pulse Rate Respiratory Rate Blood Pressure Pulse Oximetry 92 Fraction of Inspired Oxygen 35 Oxygen Delivery Method Heated High Flow,Humidification Oxygen Flow Rate 25 Narrative Exam Narrative: Constitutional: Well-nourished well-developed male in moderate respiratory distress , requiring use of high-flow oxygen via nasal cannula Patient remains alert and oriented x3. HEENT: Limited exam, complicate his high-flow oxygen via nasal cannula. Eyes: PERRLA, EOMI Neck: Supple, no lymphadenopathy no jugular venous distention Cardiovascular: Distant heart sounds, with mild sinus tachycardia, no discernible murmurs. Pulmonary: Coarse breathing bilaterally left more than right. There were rales over the left lingular/lower lobe was detected Gastrointestinal: Abdomen is soft nontender nondistended bowel sounds present no discernible organomegaly Extremities: Warm to touch, no edema Skin: No skin lesions, no rashes Objective Imaging Chest x-ray: Radiologist's impression: IMPRESSION: Increased vascularity as above suggestive of edema as well as trace effusions. Focal opacities are noted in the right middle and lower lobe suggestive of either focal edema or developing airspace disease such as pneumonia and/or atelectasis. Dictated by: Cesia Arias M.D. on 11/01/2017 at 20:38 Approved by: Cesia Arias M.D. on 11/01/2017 at 20:39 ECG: Echocardiogram: Interpretation Summary Borderline concentric left ventricular hypertrophy with ejection fraction 60- 65%. Grade I diastolic dysfunction. Moderately dilated left atrium. 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 Mild mitral annular calcification. Mild to moderate mitral regurgitation. Mild tricuspid regurgitation. The right ventricular systolic pressure is estimated at 54 mmHg assuming a right atrial pressure of 3 mm Hg. Moderate pulmonary hypertension. Electronically signed by: Adelaida Bello on Reading Physician:11/02/2017 05:31 PM Labs Result Diagrams: 11/06/17 05:43 11/06/17 05:43 Labs: Laboratory Results - last 24 hr 11/05/17 11/06/17 11/06/17 12:36 05:43 05:43 WBC 24.8 H RBC 4.02 Hgb 12.2 Hct 36.0 MCV 89.5 MCH 30.4 MCHC 34.0 RDW 14.7 Plt Count 243 Neut % (Auto) 92.9 H Lymph % (Auto) 5.5 L [place] % (Auto) 1.4 L Eos % (Auto) 0.1 L Baso % (Auto) 0.1 Neut # (Auto) 89714 H ABG pH 7.49 H ABG pCO2 40.9 ABG pO2 59 L ABG HCO3 31 H ABG Total CO2 33 H ABG O2 Saturation 92 L ABG Base Excess 8.0 H FiO2 10 Sodium 130 L Potassium 4.1 Chloride 92 L Carbon Dioxide 34 H BUN 18 H Creatinine 0.50 L Estimated GFR > 60.0 BUN/Creatinine Ratio 36.0 H Glucose 86 Calcium 8.7 Magnesium 1.9 B-Natriuretic Peptide 252.0 H 11/05/17 12:36 ABG pH 7.49 H ABG pCO2 40.9 ABG pO2 59 L ABG HCO3 31 H ABG Total CO2 33 H ABG O2 Saturation 92 L ABG Base Excess 8.0 H FiO2 10 Assessment & Plan Plan: Assessment/Plan Narrative: 1. Acute on chronic hypoxic and hypercapnic respiratory failure: Multifactorial, persist/progressing. Presenting with clinical symptoms of COPD/ CHF exacerbation, currently is evidence of rapidly evolving hospital-acquired possibly aspiration pneumonia involving most of the left lung, and resultant sepsis. Patient requiring Dr. supported by high-flow oxygen via nasal cannula. Request repeat ABG , unenhanced CT, transfer patient to ICU for further management. 2. Bilateral, left more than right, nosocomial aspiration pneumonia: Persistent and rapidly evolving. Change current antibiotic therapy to combination of IV clindamycin and cefepime. Continue breathing treatments, oral expectorant, symptomatic and supportive care. Possible need for intubation and initiation of mechanical ventilation is not ruled out. Attending family conference with the patient's daughter to discuss management options. 3. Sepsis: Secondary to above. Add treatment with stress dose of IV hydrocortisone, consider need of possible pressure support. Continue to treat underlying medical problems 4. COPD/emphysema with exacerbation: Persist/ slowly resolving, continue breathing treatments, oral expectorants, empiric antibiotic therapy as above. 3. Congestive heart failure, acute on chronic, diastolic: Persistent. Interval echocardiogram with evidence of left ventricular hypertrophy with diastolic dysfunction, moderate pulmonary hypertension. Start patient on diuresis IV Lasix. Consider starting patient on pressor support to address low normal blood pressure readings. 5. Peripheral vascular disease with recent history of TIA: There is no new clinical symptoms to suggest CVA, continue anti-platelet agents and statins. 6. Protein calorie malnutrition, moderate to severe: Multifactorial. Attending bridal consultant consultation. 7. Deconditioning/debility: PT OT to evaluate and treat daily, anticipate possible disposition to [facility]. Time Spent With Patient Time with patient: Greater than 35 minutes
[2017-11-06] MEDS: SODIUM CHLORIDE 0.9% 250 ML 100 ML IV (11:11)
--- NOTE | 2017-11-06 11:22 | OT.IP.TRT ---
Current Diagnoses Chronic obstructive pulmonary disease with (acute) exacerbation (11/01/17) Occupational Therapy Treatment Note M2 OT-IP Current Condition Start: 11/02/17 17:09 Freq: Status: Active Protocol: Document 11/02/17 17:10 [facility] (Rec: 11/02/17 17:30 [facility] [id number]) Occupational Therapy Current Condition Current Condition Evaluation Date 11/02/17 Treatment Diagnosis Hypoxia, respiratory failure Diagnosis Onset Date 11/01/17 M3 OT- IP Subjective and Pain Start: 11/02/17 17:09 Freq: Status: Active Protocol: Document 11/06/17 11:22 [facility] (Rec: 11/06/17 11:22 [facility] [id number]) OT- Subjective Occupational Therapy Visit Type Type Patient Unavailable Notes Pt has moved to ICU, at this time to put pt on HOLD until medically more stable.
--- NOTE | 2017-11-06 11:42 | PT.IPTN ---
Current Diagnoses Chronic obstructive pulmonary disease with (acute) exacerbation (11/01/17) Physical Therapy Treatment Note M2 PT-IP Current Condition Start: 11/02/17 16:58 Freq: NEEDED Status: Active Protocol: Document 11/02/17 15:18 [facility] (Rec: 11/02/17 17:18 [facility] [id number]) Physical Therapy Current Condition Current Condition Evaluation Date 11/02/17 Treatment Diagnosis pneumonia Onset Date 11/01/17 Precautions Other Precautions O2 sat M3 PT-IP Subjective Start: 11/02/17 16:58 Freq: NEEDED Status: Active Protocol: Document 11/06/17 11:40 [facility] (Rec: 11/06/17 11:42 [facility] [id number]) Subjective Physical Therapy Visit Type Type Patient Unavailable Notes Pt has moved to ICU, will hold pt until medically stable. Frequency Of Treatment Once a Day Treatment Plan Physical Therapy Treatment Plan Bed Mobility Training Transfer Training Gait Training Therapeutic Exercise Balance Retraining Post Op Education Discharge Planning Hot or Cold Pack Neuromuscular Re-ed Coordination Retraining Manual Therapy Recommendations To Nursing Amount of Assist Needed 1 Person Assist Discharge Recommendations PT Discharge Recommendations SNF Rehab
[2017-11-06] MEDS: HYDROCORTISONE 100 MG/2 ML VIAL IV (12:24)
[2017-11-06] MEDS: FUROSEMIDE 20 MG/2 ML VIAL IV ×2 (12:29→22:00)
[2017-11-06] MEDS: GUAIFENESIN/DM 200/20 MG/10 ML UDC PO ×2 (12:32→21:59)
[2017-11-06] MEDS: CLINDAMYCIN 600 MG/50 ML PIGGYBACK 50 MG IV ×2 (12:43→18:39)
--- NOTE | 2017-11-06 13:37 | PC.NURSE ---
PATIENT TRANSF TO ICU AT 1135 PER MD ORDER. VSS; SAT 91% ON HEATED HIGH FLOW RATE 25, FIO2 31.8. MAGDALENO PLACED PER MD ORDER; RETURN OF CLEAR YELLOW URINE, ON IV LASIX. WET PRODUCTIVE COUGH WITH BROWN SPUTUM. PATIENT NPO XCEPT MEDS PER MD. MONITOR CLOSELY WHEN TAKING MEDS AND CALL MD IF NEED TO SWITCH METOPROLOL TO IV, IF NOT TOLERATING PO. PAYROLL ACCOUNTANT PRESENT FOR GUAIFENISEN ELIXER GIVEN. SOME COUGHING AFTERWARDS. ORAL CARE PROVIDED. PATIENT REPORTS HER MOUTH RIOS. MOUTH AND TONGUE RED W/ SCANT WHITISH BROWN DEBORAH TO TONGUE. ABG OBTAINED BY RT, PATIENT ESCORTED TO CT SCAN WITH PORTABLE MONITOR AND THIS PLUMBING DRAFTER, SAT 90-94% ON 15L HFNC FOR TRANSF. BACK TO HEATED HIGH FLOW W/ PREVIOUS SETTINGS PER RT WHEN BACK TO . LAB NOW IN TO DRAW FOR CARDIAC ENZYMES, PER MD NOTIFICATION OF ST DEPRESSION PER TELE. NO EKG NEEDED AT THIS TIME. FAMILY AT BEDSIDE. PATIENT CONVERSANT, SPEAKS IN COMPLETE SENTENCES. TOLERATES LAYING FLAT. C/O PAIN TO CHEST W/ COUGHING ONLY. DOES NOT APPEAR DISTRESSED AT THIS TIME.
[2017-11-06 13:40] LABS: Fractionated Inspired Oxygen 0.35; HCO3 ABG 31 mmol/L (23-27); Oxygen Saturation ABG 97 % (95-100); PCO2 ABG 31.6 mmHg (35-45); PO2 ABG 71 mmHg (80-105); TCO2 ABG 32 mmol/L (23-27)
--- NOTE | 2017-11-06 14:01 | ST.IPDYTX ---
Care Team Visit Care Team Role Provider Type Sofia Christie PA-C Family Provider Advanced Slip Laster Primary Care Provider Specialty: Medical Address: [facility] [place], [address] Email: [email or web address] Maria Teresa Tinoco DO Emergency Provider Physician Specialty: Emergency Medicine Address: [address] [place] [address], [id number] Email: Rashad Alvarez MD Admit Provider Physician Attending Provider Specialty: Internal Medicine Address: [address] [place] [address], [id number] Email: UC ARCHITECT Dysphagia Treatment UC ARCHITECT Dysphagia Treatment Start: 11/02/17 12:01 Freq: Status: Active Protocol: Document 11/06/17 13:19 [facility] (Rec: 11/06/17 13:59 [facility] [id number]) Dysphagia Treatment Session Time Visit Start Time 12:20 Visit Stop Time 13:20 Total Visit Minutes 60 Setting Assessment Location Acute Care Visit Type Note Type Treatment Note Patient Information Subjective Observations Pt was transferred to ICU secondary to need of increased O2 from 9L to 25L via nasal cannula. Pt has been put on NPO status, with exception of meds, by MD d/t concern of aspiration. The pt was awake and lying bed upon UC ARCHITECT arrival. She stated she was unhappy to be NPO and being told I don't how to swallow. The pt reported having had radiation at neck 16 years ago, having had dysphagia therapy, and stated I know how to swallow and now we're starting back at zero. Pt indicated primary safe swallow strategies included chewing foods very well and alternating solids and liquids otherwise the food won't go down. Treatment Pharyngeal Strategies Supraglottic Swallow Treatment Activities Consulted with Nsg and CM RE pt status and POC. Assessed pt's swallow safety with ~1 oz thin oral liquid meds (cough expectorant). The pt was positioned bolt upright in bed. She consumed the medication in 4 small sips. No overt s/sx of aspiration were seen with frist two swallows. Immediate cough observed upon 3rd swallow. The pt was instructed with 4th swallow to hold her breath hard and swallow hard. She did so with no immediate s/sx of aspiration, although pt did cough after a delay of ~1 minute. She did exhibit intermittent productive coughing without oral intake throughout the session. Observable sputum was jett or brown in coloring. The pt c/o oral pain during and after intake of medicine. Visual inspection of her oral cavity was made by this UC ARCHITECT and Nsg, who noted evidence of potential mild thrush developing. Oral care was provided including removal and cleaning of dentures, swish and spit with clear water, swab with moist toothette application of moisturizer and Orajel by pt under UC ARCHITECT supervision. The pt exhibited no over s/sx of aspiration with oral care. Skilled education provided RE NPO status, aspiration risks and precautions to pt and to family and friends who visited at end of session. All verbalized understanding. Assessment Patient Response to Treatment Good Rehab Potential Good Assessment of Improvement Pt demonstrating signs of laryngeal penetration and possible aspiration with intake of thin liquid medication. Benefits from use of supraglottic swallow (tight holding of breath + hard swallow with intake). Pt able to perform swish and spit with no overt s/sx of aspiration. Evidence of mild oral thrush present. Recommend swish-and- spit treatment. Continue NPO status per MD orders. Diet Recommendations Liquids Order NPO Medication Recommendations As Tolerated Comments With use of supraglottic swallow maneuver, as written on whiteboard in Additional Dietary Needs Reminders to Use Strategies Aspiration Precautions Recommended Precautions Effortful Swallow Supraglottic Swallow Treatment Plan Placement Recommendation after Discharge Shelter Facility Appropriate for Continued Therapy Yes Therapy Recommendations ST to continue to follow pt through hospital stay with ongoing assessment of swallow safety and advancement of diet when medically stable and clinically indicated. Dysphagia Goals Pt will demonstrate swallow safety adequate to resume oral intake. Ongoing education to be provided to pt/family.
--- NOTE | 2017-11-06 14:10 | ST.IPDYTX ---
Care Team Visit Care Team Role Provider Type Sofia Christie PA-C Family Provider Advanced [employer] Farm Manager Primary Care Provider Specialty: Medical Address: [facility] [place], [address] Email: [email or web address] Maria Teresa Tinoco DO Emergency Provider Physician Specialty: Emergency Medicine Address: [address] [place] [address], [id number] Email: Rashad Alvarez MD Admit Provider Physician Attending Provider Specialty: Internal Medicine Address: [address] [place] [address], [id number] Email: SUPERVISOR [employer]URNACE PROCESS Dysphagia Treatment SUPERVISOR [employer]NACE PROCESS Dysphagia Treatment Start: 11/02/17 12:01 Freq: Status: Active Protocol: Document 11/06/17 13:19 VIVIAN (Rec: 11/06/17 13:59 VIVIAN [email or web address]) Dysphagia Treatment Session Time Visit Start Time 12:20 Visit Stop Time 13:20 Total Visit Minutes 60 Setting Assessment Location Acute Care Visit Type Note Type Treatment Note Patient Information Subjective Observations Pt was transferred to ICU secondary to need of increased O2 from 9L to 25L via nasal cannula. Pt has been put on NPO status, with exception of meds, by MD d/t concern of aspiration. The pt was awake and lying bed upon SUPERVISOR FURNACE PROCESS arrival. She stated she was unhappy to be NPO and being told I don't how to swallow. The pt reported having had radiation at neck 16 years ago, having had dysphagia therapy, and stated I know how to swallow and now we're starting back at zero. Pt indicated primary safe swallow strategies included chewing foods very well and alternating solids and liquids otherwise the food won't go down. Treatment Pharyngeal Strategies Supraglottic Swallow Treatment Activities Consulted with Nsg and CM RE pt status and POC. Assessed pt's swallow safety with ~1 oz thin oral liquid meds (cough expectorant). The pt was positioned bolt upright in bed. She consumed the medication in 4 small sips. No overt s/sx of aspiration were seen with first two swallows. Immediate cough observed upon 3rd swallow. The pt was instructed with 4th swallow to hold her breath hard and swallow hard. She did so with no immediate s/sx of aspiration, although pt did cough after a delay of ~1 minute. She did exhibit intermittent productive coughing without oral intake throughout the session. Observable sputum was jett or brown in coloring. The pt c/o oral pain during and after intake of medicine. Visual inspection of her oral cavity was made by this SUPERVISOR F[employer]NACE [employer] and Nsg, who noted evidence of potential mild thrush developing. Oral care was provided including removal and cleaning of dentures, swish and spit with clear water, swab with moist toothette application of moisturizer and Orajel by pt under SUPERVISOR FURNACE PROCESS supervision. The pt exhibited no over s/sx of aspiration with oral care. Skilled education provided RE NPO status, aspiration risks and precautions to pt and to family and friends who visited at end of session. All verbalized understanding. Assessment Patient Response to Treatment Good Rehab Potential Good Assessment of Improvement Pt demonstrating possible signs of laryngeal penetration and possible aspiration with intake of thin liquid medication, although difficult to be certain with limited trials, given frequent coughing throughout the session. Benefits from use of supraglottic swallow (tight holding of breath + hard swallow with intake). Pt able to perform swish and spit with no overt s/sx of aspiration. Evidence of mild oral thrush present. Recommend swish-and- spit treatment. Continue NPO status per MD orders. Diet Recommendations Liquids Order NPO Medication Recommendations As Tolerated Comments With use of supraglottic swallow maneuver, as written on whiteboard in Additional Dietary Needs Reminders to Use Strategies Aspiration Precautions Recommended Precautions Effortful Swallow Supraglottic Swallow Treatment Plan Placement Recommendation after Discharge Intermediate Facility Appropriate for Continued Therapy Yes Therapy Recommendations ST to continue to follow pt through hospital stay with ongoing assessment of swallow safety and advancement of diet when medically stable and clinically indicated. Dysphagia Goals Pt will demonstrate swallow safety adequate to resume oral intake. Ongoing education to be provided to pt/family.
[2017-11-06 14:14] LABS: Creatine Kinase 64 U/L (30-135)
[2017-11-06 14:28] LABS: Troponin I < 0.012 ng/mL (0.01-0.034)
--- NOTE | 2017-11-06 15:24 | CM.DPC ---
Addendum entered by Renae AMY Oliver 11/07/17 12:38: According to PT Champ, pt may be resistant to SNF. PT continues to recommend SNF. Dr Villanueva shared in rounds that pt has improved dramatically and a rehabilitative POC is appropriate. Further f/u needed this week w/pt and her dtr re DCP options home w/[facility] HH vs SNF. JW Original Note: Addendum entered by AMY Larson 11/06/17 15:29: In addition: TC placed to Renea at [facility] and she stated she did not have pt's name in the cue but she would place her on the list, review clinicals, and watch over the next 48-72 hrs. Original Note: DCP Cont: Following along closely. Pt has been transferred to ICU, Rm [address] Villanueva indicated in rounds that he wanted to discuss code status and possibility of Hospice (?) with pt's dtr today. Dr Villanueva's prog note states there will be (or was?) a discussion w/pt's dtr re: management options but no further information. According to FIOS [employer] INSTALLER Shanthi, pt upset today w/her NPO status and has told Shanthi I have managed my swallowing for years. Awaiting clarity on pt's medical status, POC and advanced directives before checking in re DCP options. ROSALBA
[2017-11-06] MEDS: ASPIRIN EC 81 MG TABLET PO (17:35)
[2017-11-06] MEDS: NYSTATIN 500000 UNIT PO ×2 (18:40→21:59)
--- NOTE | 2017-11-06 19:50 | RT ---
PT SWALLOWED W/ PRODUCTIVE COUGH.
--- NOTE | 2017-11-06 22:53 | PC.NURSE ---
Addendum entered by Feli Maurer R.N. 11/06/17 23:17: pt c/o feet itching. No redness, rash or hives seen. Pt says it feels like an allergic reaction. Pt's last dose of abx was 4 hours ago. This complaint started before Cefipime started. Called Ryan Villanueva to report, new order for Benadryl. Original Note: arnulfo note pt with lots of coughing. RT to bedside for aggressive pulmonary toilet. Acapella valve, positional drainage, chest percussion, then NT suction, all per RT. Pt coughed up brown thick mucous. Pt c/o sore mouth. No open lesions seen. Tongue and cheeks are red.
[2017-11-07] VITALS (15 sets, daily range): BP systolic 96–159; BP diastolic 50–79; PULSE 88–96; RESP 18–22; TEMP 36.7–37.2; O2SAT 88–99
[2017-11-07] MEDS: diphenhydrAMINE 50 MG/ML VIAL 12.5 MG IV ×2 (00:24→08:52)
[2017-11-07] MEDS: HYDROCORTISONE 100 MG/2 ML VIAL IV (01:05)
[2017-11-07] MEDS: CLINDAMYCIN 600 MG/50 ML PIGGYBACK 50 MG IV ×3 (02:02→18:20)
[2017-11-07] MEDS: LEVOTHYROXINE 75 MCG TABLET PO (05:51)
[2017-11-07] MEDS: GUAIFENESIN/DM 200/20 MG/10 ML UDC PO ×3 (05:51→20:37)
[2017-11-07] MEDS: SODIUM CHLORIDE 0.9% 250 ML 21 ML IV (05:52)
--- NOTE | 2017-11-07 06:50 | PC.NURSE ---
Patient has been awake most of the night, denies pain or shortness of breath, says she has a lot on my mind and mentioned she does not want to in the hospital HHFNC set at 40%, SpO2 has been > 96%, occasional cough, scheduled meds given. Up to BSC with 1 person assist, small BM, 600ml UOP in [place]. Afebrile, VSS, SR. Am labs drawn.
[2017-11-07 07:04] LABS: Add Manual Diff / Slide Review NO; Basophils Percent Auto 0.1 % (0-2); Hematocrit 35.4 % (36-46); Hemoglobin 11.9 g/dL (12.0-16.0); Mean Corpuscular HGB Conc 33.7 % (30-36); Mean Corpuscular Volume 88.9 fL (80-100); Monocytes Percent Auto 2.2 % (3-14); Neutrophils Absolute Auto 17800 /uL (3000-5900); Neutrophils Percent Auto 93.7 % (50-75); Platelet Count 257 X10^3/uL (150-400); Red Blood Cell Count 3.98 X10^6/uL (4.0-5.2); Red Cell Distribution Width 14.8 % (11.6-14.8)
[2017-11-07 07:14] LABS: Alanine Aminotransferase 111 IU/L (9-52); Albumin 3.1 g/dL (3.5-5.0); Albumin Globulin Ratio 1.1 (1.0-2.8); Alkaline Phosphatase 94 U/L (38-126); Aspartate Aminotransferase 57 IU/L (14-36); Bilirubin Total 0.8 mg/dL (0.2-1.3); Blood Urea Nitrogen 24 mg/dL (7-17); Calcium 8.9 mg/dL (8.4-10.2); Carbon Dioxide 37 mmol/L (22-32); Chloride 90 mmol/L (98-107); Estimated Glomerular Filt Rate > 60.0 mL/min (>60); Globulin 2.7 g/dL (1.7-4.1); Glucose 124 mg/dL (80-110); HEMOLYSIS < 15 (0-50); Magnesium 2.2 mg/dL (1.6-2.3); Potassium 3.8 mmol/L (3.4-5.1); Sodium 134 mmol/L (137-145); Total Protein 5.8 g/dL (6.3-8.2)
[2017-11-07] MEDS: ENOXAPARIN 40 MG/0.4 ML SYRINGE SUBCUT (08:40)
[2017-11-07] MEDS: SODIUM CHLORIDE 0.9% FLUSH 10 ML IV (08:40)
[2017-11-07] MEDS: FUROSEMIDE 20 MG/2 ML VIAL IV ×2 (08:41→20:37)
[2017-11-07] MEDS: POLYETHYLENE GLYCOL 3350 17 GM POWD.PACK PO (08:41)
[2017-11-07] MEDS: ROSUVASTATIN 10 MG TABLET 20 MG PO (08:42)
[2017-11-07] MEDS: NYSTATIN 500000 UNIT PO ×4 (08:42→20:39)
[2017-11-07] MEDS: METOPROLOL 12.5 MG TABLET PO ×2 (08:46→20:42)
[2017-11-07] MEDS: FLUTICASONE/SALMETEROL 250/50 14 PUFF DISKUS INH ×2 (09:27→18:47)
[2017-11-07] MEDS: ALBUTEROL/IPRATROPIUM 3 ML AMPUL INH ×3 (09:27→18:35)
--- NOTE | 2017-11-07 10:50 | PT.IPTN ---
Current Diagnoses Chronic obstructive pulmonary disease with (acute) exacerbation (11/01/17) Physical Therapy Treatment Note M2 PT-IP Current Condition Start: 11/02/17 16:58 Freq: NEEDED Status: Active Protocol: Document 11/07/17 10:50 RCC (Rec: 11/07/17 12:56 RCC [email or web address]) Physical Therapy Current Condition Current Condition Evaluation Date 11/02/17 Treatment Diagnosis pneumonia Onset Date 11/01/17 Precautions Other Precautions O2 sat M3 PT-IP Subjective Start: 11/02/17 16:58 Freq: NEEDED Status: Active Protocol: Document 11/07/17 10:50 RCC (Rec: 11/07/17 12:56 RCC [email or web address]) Subjective Physical Therapy Visit Type Type Treatment Note Visit Start Time 10:20 Visit Stop Time 10:50 Total Visit Minutes 30 Number of LIVING ADVISOR Visits 0 Physical Therapy Visit Comments Patient Comments pt notes that she really would like to be able to go home. M4 PT-IP Mobility and Gait Start: 11/02/17 16:58 Freq: NEEDED Status: Active Protocol: Document 11/07/17 10:50 RCC (Rec: 11/07/17 12:56 RCC [email or web address]) PT-Transfer Assessment Sit to and From Stand Sit to and from Stand Contact Guard Assistance Equipment Transfer Assistive Device Gait Belt Front Wheeled Walker Transfers Transfer Destination Chair Transfer Technique Stand Step Pivot Transfer Ability Level of Assist Contact Guard Assistance Use of Upper Extremities Gait Assessment Gait Gait Assistance Required: Contact Guard Assist Distance (Feet) (feet) 60 Assistive Devices Assistive Device Gait Belt Front Wheeled Walker Gait Deviations General Gait Pattern Decreased Stride Length Decreased Feet Clearance Flexed Trunk Factors Limiting Gait Function Factors Limiting Gait Function Decreased Activity Tolerance Decreased Strength Comments Gait Comments difficulty getting O2 saturation and HR due to nail kinyarwanda on pt's fingernails, but ear monitor @ 94% O2 saturation and HR 88 bpm 3 min after gait. Pt on 2-L O2 during session M6 PT-IP Treatment Start: 11/02/17 16:58 Freq: NEEDED Status: Active Protocol: Document 11/07/17 10:50 RCC (Rec: 11/07/17 12:56 RCC [email or web address]) Physical Therapy Treatment Education Education Provided Safety M7 PT-IP Assessment and Plan Start: 11/02/17 16:58 Freq: NEEDED Status: Active Protocol: Document 11/07/17 10:50 RCC (Rec: 11/07/17 12:56 [facility] [email or web address]) PT Summary Assessment and Plan Summary Assessment Summary Pt required CGA for mobility in/out of chair and with ambulation. She c/o LE fatigue with gait, limiting her mobility but no SOB. Pt has a strong desire to d/c home, but at this point is not near a safe mobility level to be able to tolerate this without assistance. Recommend continue to monitor and progress safely with mobility, and advance gait tolerance and strength. Goals Bed Mobility Goal Standby Assistance Transfer Goal Standby Assistance Gait Goal Standby Assistance Gait Distance 100 Days to Meet Goals 3 Frequency of Treatment Frequency Of Treatment Once a Day Treatment Plan Other Recommendations and Next Treatment prog. gait, mobility and Focus transfers. Trial with 3WW when safe. Recommendations To Nursing Amount of Assist Needed 1 Person Assist Discharge Recommendations PT Discharge Recommendations SNF Rehab
[2017-11-07] MEDS: CEFEPIME 2 GM in SODIUM CHLORIDE 0.9% 100 ML 200 ML IV ×2 (11:17→22:53)
--- NOTE | 2017-11-07 14:18 | PM.PN.1 ---
Subjective Date Patient Seen: 11/07/17 Time Patient Seen: 07:40 Interval history: 77-year-old female with complex medical problems admitted with acute on chronic hypoxic and hypercapnic respiratory failure secondary to COPD/CHF exacerbation . She was transferred to ICU on 11/06/2017 for persistent and progressing hypoxemia, leukocytosis secondary to bilateral hospital-acquired pneumonia and concerns for evolving sepsis. Overnight, with clinical imrovement and better symptom control on current tx. Exam Vital Signs (past 8 hours): - 11/07/17 07:48 11/07/17 09:32 11/07/17 09:33 Temperature 98.9 F Pulse Rate 92 H 96 H Respiratory Rate 21 22 Blood Pressure 159/74 H Pulse Oximetry 98 88 L 11/07/17 09:43 11/07/17 11:41 Temperature 98.4 F Pulse Rate 91 H Respiratory Rate 21 Blood Pressure 125/66 H Pulse Oximetry 94 96 Fraction of Inspired Oxygen 0.40 Oxygen Delivery Method High Flow Nasal Cannula Oxygen Flow Rate 2 Narrative Exam Narrative: Constitutional: Well-nourished well-developed female in mild respiratory distress , requiring ongoing use of high-flow oxygen via nasal cannula Patient remains alert and oriented x3. HEENT: Limited exam, due to use of high-flow oxygen via nasal cannula. Eyes: PERRLA, EOMI Neck: Supple, no lymphadenopathy no jugular venous distention Cardiovascular: Distant heart sounds, with mild sinus tachycardia, no discernible murmurs. Pulmonary: with improved aeration BL, distant rales over the L lover lung. Gastrointestinal: Abdomen is soft nontender nondistended bowel sounds present no discernible organomegaly Extremities: Warm to touch, no edema Skin: No skin lesions, no rashes Objective Imaging Echocardiogram: Radiologist's impression: Echocardiogram: Interpretation Summary Borderline concentric left ventricular hypertrophy with ejection fraction 60- 65%. Grade I diastolic dysfunction. Moderately dilated left atrium. 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 Mild mitral annular calcification. Mild to moderate mitral regurgitation. Mild tricuspid regurgitation. The right ventricular systolic pressure is estimated at 54 mmHg assuming a right atrial pressure of 3 mm Hg. Moderate pulmonary hypertension. Electronically signed by: Adelaida Bello on Reading Physician:11/02/2017 05:[address] scan - chest: Radiologist's impression: IMPRESSION: 1. Bilateral left greater than right lower lobe predominant pneumonia. 2. Followup chest CT in 1 month is recommended to ensure resolution and exclude underlying malignancy. 3. Left adrenal adenoma. 4. Coronary artery disease. Dictated by: Cornell Molina M.D. on 11/06/2017 at 13:36 Approved by: Cornell Molina M.D. on 11/06/2017 at 13:38 Labs Result Diagrams: 11/07/17 06:50 11/07/17 06:50 Labs: Laboratory Results - last 24 hr 11/06/17 11/07/17 11/07/17 13:50 06:50 06:50 WBC 19.0 H RBC 3.98 L Hgb 11.9 L Hct 35.4 L MCV 88.9 MCH 30.0 MCHC 33.7 RDW 14.8 Plt Count 257 Neut % (Auto) 93.7 H Lymph % (Auto) 4.0 L [place] % (Auto) 2.2 L Eos % (Auto) 0.0 L Baso % (Auto) 0.1 Neut # (Auto) 46963 H Sodium 134 L Potassium 3.8 Chloride 90 L Carbon Dioxide 37 H BUN 24 H Creatinine 0.50 L Estimated GFR > 60.0 BUN/Creatinine Ratio 48.0 H Glucose 124 H Calcium 8.9 Magnesium 2.2 Total Bilirubin 0.8 AST 57 H ALT 111 H Alkaline Phosphatase 94 Troponin I < 0.012 Total Protein 5.8 L Albumin 3.1 L Globulin 2.7 Albumin/Globulin Ratio 1.1 Assessment & Plan Plan: Assessment/Plan Narrative: 1. Acute on chronic hypoxic and hypercapnic respiratory failure: Multifactorial, persist/progressing. Presenting with clinical symptoms of COPD/CHF exacerbation, and subsequently with evidence of rapidly evolving hospital-acquired BL LL aspiration pneumonia involving most of the left lung, and resultant sepsis.Patient required ICU transfer on 11/06/2017 Currently stable, with clinical improvement on changes made to her medications. 2. Bilateral, left more than right, nosocomial aspiration pneumonia: with clinical improvement in the last 24 h. Currently on antibiotic therapy with combination of IV clindamycin and cefepime. Continue breathing treatments, oral expectorant, symptomatic and supportive care. Attending family conference with the patient's daughter to discuss management options. 3. Sepsis: Secondary to above , resolving.Blood cultures with no growh to date, leukocytosis is resolving. Management as above Continue to treat underlying medical problems 4. COPD/emphysema with exacerbation: resolving, continue breathing treatments, oral expectorants, empiric antibiotic therapy as above. 5. Congestive heart failure, acute on chronic, diastolic: Persistent. Interval echocardiogram with evidence of left ventricular hypertrophy with diastolic dysfunction, moderate pulmonary hypertension. Started patient on diuresis IV Lasix. 6. Peripheral vascular disease with recent history of TIA: There is no new clinical symptoms to suggest CVA, continue anti-platelet agents and statins. 7. Protein calorie malnutrition, moderate to severe: Multifactorial. Attending farm crops teacher consultation. 8. Deconditioning/debility: PT OT to evaluate and treat daily, anticipate possible disposition to group home facility. Time Spent With Patient Time with patient: 25 - 35 minutes
--- NOTE | 2017-11-07 14:35 | P.PN_ITS ---
Subjective Date Patient Seen: 11/07/17 Time Patient Seen: 07:40 Interval history: 77-year-old female with complex medical problems admitted with acute on chronic hypoxic and hypercapnic respiratory failure secondary to COPD/CHF exacerbation . She was transferred to ICU on 11/06/2017 for persistent and progressing hypoxemia, leukocytosis secondary to bilateral hospital-acquired pneumonia and concerns for evolving sepsis. Overnight, with clinical imrovement and better symptom control on current tx. Exam Vital Signs (past 8 hours): - 11/07/17 07:48 11/07/17 09:32 11/07/17 09:33 Temperature 98.9 F Pulse Rate 92 H 96 H Respiratory Rate 21 22 Blood Pressure 159/74 H Pulse Oximetry 98 88 L 11/07/17 09:43 11/07/17 11:41 Temperature 98.4 F Pulse Rate 91 H Respiratory Rate 21 Blood Pressure 125/66 H Pulse Oximetry 94 96 Fraction of Inspired Oxygen 0.40 Oxygen Delivery Method High Flow Nasal Cannula Oxygen Flow Rate 2 Narrative Exam Narrative: Constitutional: Well-nourished well-developed female in mild respiratory distress , requiring ongoing use of high-flow oxygen via nasal cannula Patient remains alert and oriented x3. HEENT: Limited exam, due to use of high-flow oxygen via nasal cannula. Eyes: PERRLA, EOMI Neck: Supple, no lymphadenopathy no jugular venous distention Cardiovascular: Distant heart sounds, with mild sinus tachycardia, no discernible murmurs. Pulmonary: with improved aeration BL, distant rales over the L lover lung. Gastrointestinal: Abdomen is soft nontender nondistended bowel sounds present no discernible organomegaly Extremities: Warm to touch, no edema Skin: No skin lesions, no rashes Objective Imaging Echocardiogram: Radiologist's impression: Echocardiogram: Interpretation Summary Borderline concentric left ventricular hypertrophy with ejection fraction 60- 65%. Grade I diastolic dysfunction. Moderately dilated left atrium. 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 Mild mitral annular calcification. Mild to moderate mitral regurgitation. Mild tricuspid regurgitation. The right ventricular systolic pressure is estimated at 54 mmHg assuming a right atrial pressure of 3 mm Hg. Moderate pulmonary hypertension. Electronically signed by: Adelaida Bello on Reading Physician:11/02/2017 05:[address] scan - chest: Radiologist's impression: IMPRESSION: 1. Bilateral left greater than right lower lobe predominant pneumonia. 2. Followup chest CT in 1 month is recommended to ensure resolution and exclude underlying malignancy. 3. Left adrenal adenoma. 4. Coronary artery disease. Dictated by: Cornell Moilna M.D. on 11/06/2017 at 13:36 Approved by: Cornell Molina M.D. on 11/06/2017 at 13:38 Labs Result Diagrams: 11/07/17 06:50 11/07/17 06:50 Labs: Laboratory Results - last 24 hr 11/06/17 11/07/17 11/07/17 13:50 06:50 06:50 WBC 19.0 H RBC 3.98 L Hgb 11.9 L Hct 35.4 L MCV 88.9 MCH 30.0 MCHC 33.7 RDW 14.8 Plt Count 257 Neut % (Auto) 93.7 H Lymph % (Auto) 4.0 L [place] % (Auto) 2.2 L Eos % (Auto) 0.0 L Baso % (Auto) 0.1 Neut # (Auto) 51848 H Sodium 134 L Potassium 3.8 Chloride 90 L Carbon Dioxide 37 H BUN 24 H Creatinine 0.50 L Estimated GFR > 60.0 BUN/Creatinine Ratio 48.0 H Glucose 124 H Calcium 8.9 Magnesium 2.2 Total Bilirubin 0.8 AST 57 H ALT 111 H Alkaline Phosphatase 94 Troponin I < 0.012 Total Protein 5.8 L Albumin 3.1 L Globulin 2.7 Albumin/Globulin Ratio 1.1 Assessment & Plan Plan: Assessment/Plan Narrative: 1. Acute on chronic hypoxic and hypercapnic respiratory failure: Multifactorial, persist/progressing. Presenting with clinical symptoms of COPD/ CHF exacerbation, and subsequently with evidence of rapidly evolving hospital- acquired BL LL aspiration pneumonia involving most of the left lung, and resultant sepsis.Patient required ICU transfer on 11/06/2017 Currently stable, with clinical improvement on changes made to her medications. 2. Bilateral, left more than right, nosocomial aspiration pneumonia: with clinical improvement in the last 24 h. Currently on antibiotic therapy with combination of IV clindamycin and cefepime. Continue breathing treatments, oral expectorant, symptomatic and supportive care. Attending family conference with the patient's daughter to discuss management options. 3. Sepsis: Secondary to above , resolving.Blood cultures with no growh to date , leukocytosis is resolving. Management as above Continue to treat underlying medical problems 4. COPD/emphysema with exacerbation: resolving, continue breathing treatments , oral expectorants, empiric antibiotic therapy as above. 5. Congestive heart failure, acute on chronic, diastolic: Persistent. Interval echocardiogram with evidence of left ventricular hypertrophy with diastolic dysfunction, moderate pulmonary hypertension. Started patient on diuresis IV Lasix. 6. Peripheral vascular disease with recent history of TIA: There is no new clinical symptoms to suggest CVA, continue anti-platelet agents and statins. 7. Protein calorie malnutrition, moderate to severe: Multifactorial. Attending exhibit specialist consultation. 8. Deconditioning/debility: PT OT to evaluate and treat daily, anticipate possible disposition to senior living facility. Time Spent With Patient Time with patient: 25 - 35 minutes
--- NOTE | 2017-11-07 14:35 | PC.NURSE ---
PT INITIALLY QUITE SAD AND STATING TO MD I DON'T WANT TO AT THE HOSPITAL LENGTHY CONVERSA-TION WITH PT AND MD AND MYSELF- SHE THEN WAS MOTIVATED TO GET UP FROM BED AND SAT IN CHAIR AND AMBULATED WITH PT AND USE OF O2 ALONG WITH GAIT BELT AND WALKER. SHE IS NO LONGER TAKING STEROIDS AND ANTIBIOTICS CONTINUE. SHE NOW IS DENYING NEED FOR REHAB AT THIS POINT, QUITE ADAMANT ABOUT THIS FACT AND THIS UPSET HER DAUGHTER, MATI ( WHO IS A NURSE) LEFT IN TEARS - UPDATE TO CASE MGMGNT
[2017-11-07] MEDS: ASPIRIN EC 81 MG TABLET PO (18:20)
[2017-11-07] MEDS: GABAPENTIN 300 MG CAPSULE PO (22:27)
[2017-11-08] VITALS (11 sets, daily range): BP systolic 108–149; BP diastolic 52–76; PULSE 77–107; RESP 14–20; TEMP 36.2–36.9; O2SAT 90–98
[2017-11-08] MEDS: CLINDAMYCIN 600 MG/50 ML PIGGYBACK 50 MG IV ×3 (02:02→17:37)
[2017-11-08] MEDS: GUAIFENESIN/DM 200/20 MG/10 ML UDC PO ×3 (04:43→20:34)
[2017-11-08] MEDS: LEVOTHYROXINE 75 MCG TABLET PO (04:45)
[2017-11-08 05:08] LABS: Hemoglobin 12.1 g/dL (12.0-16.0); INR 1.1 (0.9-1.3); Mean Corpuscular HGB Conc 34.5 % (30-36); Mean Corpuscular Hemoglobin 30.7 PG (26-34); Mean Corpuscular Volume 88.8 fL (80-100); Platelet Count 296 X10^3/uL (150-400); Prothrombin Time 12.5 SECONDS (10.1-12.7); Red Blood Cell Count 3.94 X10^6/uL (4.0-5.2); Red Cell Distribution Width 14.8 % (11.6-14.8); White Blood Cell Count 13.1 X10^3/uL (4.5-11.0)
[2017-11-08 05:13] LABS: Alanine Aminotransferase 114 IU/L (9-52); Albumin 2.9 g/dL (3.5-5.0); Albumin Globulin Ratio 1.2 (1.0-2.8); Alkaline Phosphatase 77 U/L (38-126); Aspartate Aminotransferase 79 IU/L (14-36); BUN Creatinine Ratio 72.5 (6-22); Bilirubin Total 0.7 mg/dL (0.2-1.3); Blood Urea Nitrogen 29 mg/dL (7-17); Calcium 8.5 mg/dL (8.4-10.2); Carbon Dioxide 35 mmol/L (22-32); Chloride 91 mmol/L (98-107); Estimated Glomerular Filt Rate > 60.0 mL/min (>60); Globulin 2.4 g/dL (1.7-4.1); Glucose 93 mg/dL (80-110); HEMOLYSIS 21 (0-50); Magnesium 1.9 mg/dL (1.6-2.3); Potassium 3.1 mmol/L (3.4-5.1); Sodium 134 mmol/L (137-145); Total Protein 5.3 g/dL (6.3-8.2)
[2017-11-08 05:18] LABS: Add Manual Diff / Slide Review YES
[2017-11-08 06:17] LABS: RBC Morphology Normal Morphology
[2017-11-08] MEDS: POTASSIUM CHLORIDE 20 MEQ TAB PO ×2 (08:44→17:37)
[2017-11-08] MEDS: FLUTICASONE/SALMETEROL 250/50 14 PUFF DISKUS INH ×2 (08:46→18:08)
[2017-11-08] MEDS: ALBUTEROL/IPRATROPIUM 3 ML AMPUL INH ×3 (08:46→18:07)
[2017-11-08] MEDS: GABAPENTIN 300 MG CAPSULE PO ×3 (08:48→20:38)
[2017-11-08] MEDS: POLYETHYLENE GLYCOL 3350 17 GM POWD.PACK PO (08:48)
[2017-11-08] MEDS: ENOXAPARIN 40 MG/0.4 ML SYRINGE SUBCUT (08:48)
[2017-11-08] MEDS: ROSUVASTATIN 10 MG TABLET 20 MG PO (08:49)
[2017-11-08] MEDS: FUROSEMIDE 20 MG/2 ML VIAL IV (08:49)
[2017-11-08] MEDS: NYSTATIN 500000 UNIT PO ×4 (08:50→20:38)
[2017-11-08] MEDS: METOPROLOL 12.5 MG TABLET PO ×2 (08:53→20:38)
[2017-11-08] MEDS: SODIUM CHLORIDE 0.9% 250 ML 21 ML IV (10:20)
[2017-11-08] MEDS: SODIUM CHLORIDE 0.9% FLUSH 10 ML IV ×2 (10:23→20:38)
[2017-11-08] MEDS: CEFEPIME 2 GM in SODIUM CHLORIDE 0.9% 100 ML 200 ML IV ×2 (11:28→22:34)
--- NOTE | 2017-11-08 14:16 | ST.IPDYTX ---
Care Team Visit Care Team Role Provider Type Sofia Christie PA-C Family Provider Advanced Director Of Operations Support Primary Care Provider Specialty: Medical Address: [facility] [address] [place], [address] Email: [email or web address] Maria Teresa Tinoco DO Emergency Provider Physician Specialty: Emergency Medicine Address: [address] [place] [address], [id number] Email: Rashad Alvarez MD Admit Provider Physician Attending Provider Specialty: Internal Medicine Address: [address] [place] [address], [id number] Email: LAUNDRY MARKER SUPERVISOR Dysphagia Treatment LAUNDRY MARKER SUPERVISOR Dysphagia Treatment Start: 11/02/17 12:01 Freq: Status: Active Protocol: Document 11/08/17 14:05 LNK (Rec: 11/08/17 14:14 LNK [id number]) Dysphagia Treatment Session Time Visit Start Time 11:30 Visit Stop Time 12:00 Total Visit Minutes 30 Visit Information Visit Number 7 Setting Assessment Location Acute Care Visit Type Note Type Treatment Note Patient Information Subjective Observations Pt was seen in ICU. She was sitting up in bed. Pt reported that she feels much better and will probably be transferred upstairs today to acute care Pt reported thst she is currently on 2L O2 Treatment Liquids Trialed Thin Solids Trialed Puree Mechanical Soft Pharyngeal Strategies Supraglottic Swallow Additional Dysphagia Treatment Continue strict oral care with Strategies swish and spit Treatment Activities Reviewed with the pt her diet management. Pt did not recall any choking or aspiration event prior to her decline last week. She was able to describe and demonstrate a supraglottic swallow with minimal cues. Directions for supraglottic swallow posted in pt room on white board for her to see during meals. Pt is very aware of her swallowing difficulty and she is very compliant with her precautions, etc. Assessment Patient Response to Treatment Good Rehab Potential Good Assessment of Improvement Pt demonstrating possible signs of laryngeal penetration and possible aspiration with intake of thin liquid medication, although difficult to be certain with limited trials, given frequent coughing throughout the session. Benefits from use of supraglottic swallow (tight holding of breath + hard swallow with intake). Pt able to perform swish and spit with no overt s/sx of aspiration. Evidence of mild oral thrush present. Recommend swish-and- spit treatment. Continue NPO status per MD orders. Diet Recommendations Recommendations Continue Current Diet Liquids Order Thin Medication Recommendations As Tolerated Comments With use of supraglottic swallow maneuver, as written on whiteboard in Additional Dietary Needs Reminders to Use Strategies Aspiration Precautions Recommended Precautions Effortful Swallow Supraglottic Swallow Treatment Plan Placement Recommendation after Discharge [facility] Facility Appropriate for Continued Therapy Yes Therapy Recommendations ST to continue to follow pt through hospital stay with ongoing assessment of swallow safety and advancement of diet when medically stable and clinically indicated. Dysphagia Goals Pt will demonstrate swallow safety adequate to resume oral intake. Ongoing education to be provided to pt/family.
--- NOTE | 2017-11-08 14:25 | CM.DPC ---
DCP Cont: Per MD, pt is still on IV-Abx and uncertain if oral or IV needed at discharge but pt has made good medical progress but still SNF at d/c. Per PT, still recommending SNF rehab at discharge. SW met bedside with pt and explained role again and pt remembered this SW from last week. SW discussed d/c planning needs and pt confirms that she has been fairly adamant about going home but has again come to the realization that she needs SNF rehab to strengthen prior to safely going home. Pt confirms that her preference is [facility]. SW called [facility] admissions [facility] and updated on pt status and requested review since pt has made great progress to confirm they can accept her at discharge. Mimi does not anticipate any concerns with accepting the pt. PASRR still completed and attached. Plan: SW to follow for likely [facility] when medically stable. Samantha Carcamo MSW
--- NOTE | 2017-11-08 14:59 | OT.IP.TRT ---
Current Diagnoses Chronic obstructive pulmonary disease with (acute) exacerbation (11/01/17) Occupational Therapy Treatment Note M2 OT-IP Current Condition Start: 11/02/17 17:09 Freq: Status: Active Protocol: Document 11/02/17 17:10 [facility] (Rec: 11/02/17 17:30 [facility] [id number]) Occupational Therapy Current Condition Current Condition Evaluation Date 11/02/17 Treatment Diagnosis Hypoxia, respiratory failure Diagnosis Onset Date 11/01/17 M3 OT- IP Subjective and Pain Start: 11/02/17 17:09 Freq: Status: Active Protocol: Document 11/08/17 14:55 [facility] (Rec: 11/08/17 14:59 [facility] [id number]) OT- Subjective Occupational Therapy Visit Type Type Patient Refusal Notes Attempted to see pt for OT treatment and pt coughing, therefore assisted pt to get bed upright so able to cough productively. At this time, pt states would rather stay in bed versus get up to the chair . Pt now agreeable to go to skilled rehab prior to going home.
--- NOTE | 2017-11-08 15:01 | PC.NURSE ---
Pt transferred from ICU into room 210 Denies pain, comfortable in room and making needs known. Refuses IV restart at this time. Call light in reach.
--- NOTE | 2017-11-08 15:48 | PT.IPTN ---
Current Diagnoses Chronic obstructive pulmonary disease with (acute) exacerbation (11/01/17) Physical Therapy Treatment Note M2 PT-IP Current Condition Start: 11/02/17 16:58 Freq: NEEDED Status: Active Protocol: Document 11/07/17 10:50 [facility] (Rec: 11/07/17 12:56 [facility] [id number]) Physical Therapy Current Condition Current Condition Evaluation Date 11/02/17 Treatment Diagnosis pneumonia Onset Date 11/01/17 Precautions Other Precautions O2 sat M3 PT-IP Subjective Start: 11/02/17 16:58 Freq: NEEDED Status: Active Protocol: Document 11/08/17 15:48 MDD (Rec: 11/08/17 16:44 MDD [id number]) Subjective Physical Therapy Visit Type Type Treatment Note Visit Start Time 15:18 Visit Stop Time 15:48 Total Visit Minutes 30 Notes Pt on 2 L/min throughout session. O2 sats between 88- 90% with activity. At end of session, pt experienced a coughing fit, O2 decreased to 79%, but increased back to 90% within 30 seconds. Number of ENGAGEMENT DIRECTOR Visits 0 Physical Therapy Visit Comments Patient Comments Pt is very motivated to participate in therapy this day. Continues to state that her goal is to go home, but she is agreeable to SNF if needed. Therapy Pain Assessment Pain Present Pain Present Denied Pain M4 PT-IP Mobility and Gait Start: 11/02/17 16:58 Freq: NEEDED Status: Active Protocol: Document 11/07/17 10:50 [facility] (Rec: 11/07/17 12:56 [facility] [email or web address]) PT-Transfer Assessment Sit to and From Stand Sit to and from Stand Contact Guard Assistance Equipment Transfer Assistive Device Gait Belt Front Wheeled Walker Transfers Transfer Destination Chair Transfer Technique Stand Step Pivot Transfer Ability Level of Assist Contact Guard Assistance Use of Upper Extremities Gait Assessment Gait Gait Assistance Required: Contact Guard Assist Distance (Feet) (feet) 60 Assistive Devices Assistive Device Gait Belt Front Wheeled Walker Gait Deviations General Gait Pattern Decreased Stride Length Decreased Feet Clearance Flexed Trunk Factors Limiting Gait Function Factors Limiting Gait Function Decreased Activity Tolerance Decreased Strength Comments Gait Comments difficulty getting O2 saturation and HR due to nail azerbaijani on pt's fingernails, but ear monitor @ 94% O2 saturation and HR 88 bpm 3 min after gait. Pt on 2-L O2 during session M5 PT-IP Objective Assessments Start: 11/02/17 16:58 Freq: NEEDED Status: Active Protocol: Document 11/02/17 15:18 AB (Rec: 11/02/17 17:18 AB [id number]) Orientation Orientation/Cognition Level of Alertness Alert Orientation Name Safety Awareness Decreased Safety Awareness Strength Upper Extremity Strength Assessment Within Functional Limits Lower Extremity Strength Assessment Bilaterally Impaired Knee 3+/5 M6 PT-IP Treatment Start: 11/02/17 16:58 Freq: NEEDED Status: Active Protocol: Document 11/08/17 15:48 MDD (Rec: 11/08/17 16:44 MDD [id number]) Physical Therapy Treatment Education Education Provided Safety Other Treatments Other Treatment Performed Pt required SBA for bed mobility with HOB elevated with use of bed rails (has an electric elevating bed). CGA for sit to stand, therapist assist with supplemental oxygen. Gait training x 150 feet with multiple short standing rest breaks. Cues for looking ahead of her and not at the floor, improving posture and breathing throughout. M7 PT-IP Assessment and Plan Start: 11/02/17 16:58 Freq: NEEDED Status: Active Protocol: Document 11/08/17 15:48 MDD (Rec: 11/08/17 16:44 MDD [id number]) PT Summary Assessment and Plan Potential Rehabilitation Potential Good Status of Condition at Evaluation Stable Summary Impairments ROM Strength Balance Coordination Cognition Bed Mobility Transfers Gait Activity Tolerance Progress Towards Goals Slow Progress due to Activity Tolerance Assessment Summary Pt continues to require CGA for transfers and gait. Demonstrates improved endurance for gait this day, but continues to have low activity tolerance. Goals Bed Mobility Goal Standby Assistance Transfer Goal Standby Assistance Gait Goal Standby Assistance Gait Distance 100 Days to Meet Goals 3 Frequency of Treatment Frequency Of Treatment Once a Day Treatment Plan Physical Therapy Treatment Plan Bed Mobility Training Transfer Training Gait Training Therapeutic Exercise Balance Retraining Post Op Education Discharge Planning Hot or Cold Pack Neuromuscular Re-ed Coordination Retraining Manual Therapy Other Recommendations and Next Treatment prog. gait, mobility and Focus transfers. Trial with 3WW when safe. Recommendations To Nursing Amount of Assist Needed 1 Person Assist Discharge Recommendations PT Discharge Recommendations SNF Rehab
--- NOTE | 2017-11-08 16:53 | PM.PN.1 ---
Subjective Date Patient Seen: 11/08/17 Time Patient Seen: 07:40 Interval history: 77-year-old female with complex medical problems admitted with acute on chronic hypoxic and hypercapnic respiratory failure secondary to COPD/CHF exacerbation . She was transferred to ICU on 11/06/2017 for persistent and progressing hypoxemia, leukocytosis secondary to bilateral hospital-acquired pneumonia and concerns for evolving sepsis. with no events overnight, patient reports significant ongoing clinical improvement, getting trasnferred back to ACU. Exam Vital Signs (past 8 hours): - 11/08/17 08:54 11/08/17 09:12 11/08/17 12:59 Temperature Pulse Rate Respiratory Rate 14 Blood Pressure Pulse Oximetry 93 92 96 11/08/17 15:45 Temperature 98.2 F Pulse Rate 89 Respiratory Rate 20 Blood Pressure 108/70 Pulse Oximetry 93 Fraction of Inspired Oxygen 0.40 Oxygen Delivery Method Nasal Cannula Oxygen Flow Rate 2 Narrative Exam Narrative: Constitutional: Well-nourished well-developed female in NAD , she is alert and oriented x 3 HEENT: unremarkable exam. Eyes: PERRLA, EOMI Neck: Supple, no lymphadenopathy no jugular venous distention Cardiovascular: Distant heart sounds, RRR, no discernible murmurs. Pulmonary: with improved aeration BL Gastrointestinal: Abdomen is soft nontender nondistended bowel sounds present no discernible organomegaly Extremities: Warm to touch, no edema Skin: No skin lesions, no rashes Objective Imaging CT scan - chest: Radiologist's impression: 1. Bilateral left greater than right lower lobe predominant pneumonia. 2. Followup chest CT in 1 month is recommended to ensure resolution and exclude underlying malignancy. 3. Left adrenal adenoma. 4. Coronary artery disease. Dictated by: Cornell Molina M.D. on 11/06/2017 at 13:36 Approved by: Cornell Molina M.D. on 11/06/2017 at 13:38 ECG: Echocardiogram: Radiologist's impression: Echocardiogram: Interpretation Summary Borderline concentric left ventricular hypertrophy with ejection fraction 60- 65%. Grade I diastolic dysfunction. Moderately dilated left atrium. 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 Mild mitral annular calcification. Mild to moderate mitral regurgitation. Mild tricuspid regurgitation. The right ventricular systolic pressure is estimated at 54 mmHg assuming a right atrial pressure of 3 mm Hg. Moderate pulmonary hypertension. Electronically signed by: Adelaida Bello on Reading Physician:11/02/2017 05:31 PM Labs Result Diagrams: 11/08/17 04:43 11/08/17 04:43 Labs: Laboratory Results - last 24 hr 11/08/17 11/08/17 11/08/17 04:43 04:43 04:43 WBC 13.1 H RBC 3.94 L Hgb 12.1 Hct 35.0 L MCV 88.8 MCH 30.7 MCHC 34.5 RDW 14.8 Plt Count 296 Neut % (Auto) Not Reportable Lymph % (Auto) Not Reportable [place] % (Auto) Not Reportable Eos % (Auto) Not Reportable Baso % (Auto) Not Reportable Seg Neutrophils % 85.0 H Band Neutrophils % 2.0 L Lymphocytes % (Manual) 9.0 L Monocytes % (Manual) 3.0 Eosinophils % (Manual) 1.0 L RBC Morphology Normal morphology PT 12.5 INR 1.1 Sodium 134 L Potassium 3.1 L Chloride 91 L Carbon Dioxide 35 H BUN 29 H Creatinine 0.40 L Estimated GFR > 60.0 BUN/Creatinine Ratio 72.5 H Glucose 93 Calcium 8.5 Magnesium 1.9 Total Bilirubin 0.7 AST 79 H ALT 114 H Alkaline Phosphatase 77 Total Protein 5.3 L Albumin 2.9 L Globulin 2.4 Albumin/Globulin Ratio 1.2 Assessment & Plan Plan: Assessment/Plan Narrative: 1. Acute on chronic hypoxic and hypercapnic respiratory failure: Multifactorial, resolving. Presenting with clinical symptoms of COPD/CHF exacerbation, and subsequently with evidence of rapidly evolving hospital-acquired BL LL aspiration pneumonia involving most of the left lung, and resultant sepsis.Patient required ICU transfer on 11/06/2017 Currently stable, with ongoing clinical improvement , getting transferred back to the ACU. 2. Bilateral, left more than right, nosocomial aspiration pneumonia: with significant improvement in the last 48 h. Currently on IV antibiotic therapy with combination of IV clindamycin and cefepime. Blood cultures with no growth to date. Continue breathing treatments, oral expectorant, symptomatic and supportive care. 3. Sepsis: Secondary to above , resolving.Blood cultures with no growh to date, leukocytosis is resolving. Management as above Continue to treat underlying medical problems 4. COPD/emphysema with exacerbation: resolving, continue breathing treatments, oral expectorants, empiric antibiotic therapy as above. 5. Congestive heart failure, acute on chronic, diastolic: Interval echocardiogram with evidence of left ventricular hypertrophy with diastolic dysfunction, moderate pulmonary hypertension. Continue diuresis. 6. Peripheral vascular disease with recent history of TIA: There is no new clinical symptoms to suggest CVA, continue anti-platelet agents and statins. 7. Protein calorie malnutrition, moderate to severe: Multifactorial. Diet support per hydraulic spinner recommendations. 8. Deconditioning/debility: PT /OT to evaluate and treat daily, anticipate possible disposition to [facility] facility. Time Spent With Patient Time with patient: 25 - 35 minutes
--- NOTE | 2017-11-08 17:01 | P.PN_ITS ---
Subjective Date Patient Seen: 11/08/17 Time Patient Seen: 07:40 Interval history: 77-year-old female with complex medical problems admitted with acute on chronic hypoxic and hypercapnic respiratory failure secondary to COPD/CHF exacerbation . She was transferred to ICU on 11/06/2017 for persistent and progressing hypoxemia, leukocytosis secondary to bilateral hospital-acquired pneumonia and concerns for evolving sepsis. with no events overnight, patient reports significant ongoing clinical improvement, getting trasnferred back to ACU. Exam Vital Signs (past 8 hours): - 11/08/17 08:54 11/08/17 09:12 11/08/17 12:59 Temperature Pulse Rate Respiratory Rate 14 Blood Pressure Pulse Oximetry 93 92 96 11/08/17 15:45 Temperature 98.2 F Pulse Rate 89 Respiratory Rate 20 Blood Pressure 108/70 Pulse Oximetry 93 Fraction of Inspired Oxygen 0.40 Oxygen Delivery Method Nasal Cannula Oxygen Flow Rate 2 Narrative Exam Narrative: Constitutional: Well-nourished well-developed female in NAD , she is alert and oriented x 3 HEENT: unremarkable exam. Eyes: PERRLA, EOMI Neck: Supple, no lymphadenopathy no jugular venous distention Cardiovascular: Distant heart sounds, RRR, no discernible murmurs. Pulmonary: with improved aeration BL Gastrointestinal: Abdomen is soft nontender nondistended bowel sounds present no discernible organomegaly Extremities: Warm to touch, no edema Skin: No skin lesions, no rashes Objective Imaging CT scan - chest: Radiologist's impression: 1. Bilateral left greater than right lower lobe predominant pneumonia. 2. Followup chest CT in 1 month is recommended to ensure resolution and exclude underlying malignancy. 3. Left adrenal adenoma. 4. Coronary artery disease. Dictated by: Cornell Molina M.D. on 11/06/2017 at 13:36 Approved by: Cornell Molina M.D. on 11/06/2017 at 13:38 ECG: Echocardiogram: Radiologist's impression: Echocardiogram: Interpretation Summary Borderline concentric left ventricular hypertrophy with ejection fraction 60- 65%. Grade I diastolic dysfunction. Moderately dilated left atrium. 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 Mild mitral annular calcification. Mild to moderate mitral regurgitation. Mild tricuspid regurgitation. The right ventricular systolic pressure is estimated at 54 mmHg assuming a right atrial pressure of 3 mm Hg. Moderate pulmonary hypertension. Electronically signed by: Adelaida Bello on Reading Physician:11/02/2017 05:31 PM Labs Result Diagrams: 11/08/17 04:43 11/08/17 04:43 Labs: Laboratory Results - last 24 hr 11/08/17 11/08/17 11/08/17 04:43 04:43 04:43 WBC 13.1 H RBC 3.94 L Hgb 12.1 Hct 35.0 L MCV 88.8 MCH 30.7 MCHC 34.5 RDW 14.8 Plt Count 296 Neut % (Auto) Not Reportable Lymph % (Auto) Not Reportable [place] % (Auto) Not Reportable Eos % (Auto) Not Reportable Baso % (Auto) Not Reportable Seg Neutrophils % 85.0 H Band Neutrophils % 2.0 L Lymphocytes % (Manual) 9.0 L Monocytes % (Manual) 3.0 Eosinophils % (Manual) 1.0 L RBC Morphology Normal morphology PT 12.5 INR 1.1 Sodium 134 L Potassium 3.1 L Chloride 91 L Carbon Dioxide 35 H BUN 29 H Creatinine 0.40 L Estimated GFR > 60.0 BUN/Creatinine Ratio 72.5 H Glucose 93 Calcium 8.5 Magnesium 1.9 Total Bilirubin 0.7 AST 79 H ALT 114 H Alkaline Phosphatase 77 Total Protein 5.3 L Albumin 2.9 L Globulin 2.4 Albumin/Globulin Ratio 1.2 Assessment & Plan Plan: Assessment/Plan Narrative: 1. Acute on chronic hypoxic and hypercapnic respiratory failure: Multifactorial, resolving. Presenting with clinical symptoms of COPD/CHF exacerbation, and subsequently with evidence of rapidly evolving hospital- acquired BL LL aspiration pneumonia involving most of the left lung, and resultant sepsis.Patient required ICU transfer on 11/06/2017 Currently stable, with ongoing clinical improvement , getting transferred back to the ACU. 2. Bilateral, left more than right, nosocomial aspiration pneumonia: with significant improvement in the last 48 h. Currently on IV antibiotic therapy with combination of IV clindamycin and cefepime. Blood cultures with no growth to date. Continue breathing treatments, oral expectorant, symptomatic and supportive care. 3. Sepsis: Secondary to above , resolving.Blood cultures with no growh to date , leukocytosis is resolving. Management as above Continue to treat underlying medical problems 4. COPD/emphysema with exacerbation: resolving, continue breathing treatments , oral expectorants, empiric antibiotic therapy as above. 5. Congestive heart failure, acute on chronic, diastolic: Interval echocardiogram with evidence of left ventricular hypertrophy with diastolic dysfunction, moderate pulmonary hypertension. Continue diuresis. 6. Peripheral vascular disease with recent history of TIA: There is no new clinical symptoms to suggest CVA, continue anti-platelet agents and statins. 7. Protein calorie malnutrition, moderate to severe: Multifactorial. Diet support per it support consultant recommendations. 8. Deconditioning/debility: PT /OT to evaluate and treat daily, anticipate possible disposition to longterm facility. Time Spent With Patient Time with patient: 25 - 35 minutes
[2017-11-08] MEDS: ASPIRIN EC 81 MG TABLET PO (17:37)
[2017-11-09] VITALS (13 sets, daily range): BP systolic 81–124; BP diastolic 49–68; PULSE 79–105; RESP 16–21; TEMP 36.4–37.2; O2SAT 89–97
--- NOTE | 2017-11-09 00:25 | PC.NURSE ---
Addendum entered by Aura Cid R.N. 11/09/17 06:38: Has slept most of shift. O2 sat this morning is 91% on 3L HFNC so O2 increased to 3.5L/min. Denies pain. Original Note: Patient is alert and oriented. Soft spoken and seems generally weak. Breath sounds with coarse inspiratory crackles in left lower lobe. On oxygen per HFNC at 3L/min with sat of 92%. Intermittent coarse, moist sounding cough which she states is sometimes productive of dark brown/green sputum. HRR. Denies nausea. BT present and abdomen is soft. Indwelling catheter is patent. Able to turn self in bed. Bruising noted on bilateral UE and RLQ of abdomen. No edema noted. Chronic numbness in bilateral feet. Denies pain. Fall risk score is high and bed alarm is activated.
[2017-11-09] MEDS: CLINDAMYCIN 600 MG/50 ML PIGGYBACK 50 MG IV ×3 (02:16→18:11)
[2017-11-09] MEDS: SODIUM CHLORIDE 0.9% FLUSH 10 ML IV ×3 (02:16→21:33)
[2017-11-09] MEDS: GUAIFENESIN/DM 200/20 MG/10 ML UDC PO ×3 (05:01→21:33)
[2017-11-09] MEDS: LEVOTHYROXINE 75 MCG TABLET PO (06:20)
[2017-11-09 08:04] LABS: Hematocrit 33.3 % (36-46); Hemoglobin 11.4 g/dL (12.0-16.0); Mean Corpuscular Volume 89.4 fL (80-100); Red Blood Cell Count 3.73 X10^6/uL (4.0-5.2); White Blood Cell Count 9.7 X10^3/uL (4.5-11.0)
[2017-11-09 08:05] LABS: Add Manual Diff / Slide Review YES; Mean Corpuscular HGB Conc 34.2 % (30-36); Mean Corpuscular Hemoglobin 30.6 PG (26-34); Platelet Count 285 X10^3/uL (150-400); Red Cell Distribution Width 14.8 % (11.6-14.8)
[2017-11-09] MEDS: POLYETHYLENE GLYCOL 3350 17 GM POWD.PACK PO ×2 (08:05→16:56)
[2017-11-09] MEDS: GABAPENTIN 300 MG CAPSULE PO ×3 (08:06→21:33)
[2017-11-09] MEDS: FUROSEMIDE 40 MG TABLET PO (08:06)
[2017-11-09] MEDS: POTASSIUM CHLORIDE 20 MEQ TAB PO ×2 (08:06→16:56)
[2017-11-09] MEDS: ENOXAPARIN 40 MG/0.4 ML SYRINGE SUBCUT (08:06)
[2017-11-09 08:07] LABS: Neutrophils Absolute Manual 7081 /uL (3000-5900); Total Cells Counted 100
[2017-11-09] MEDS: ROSUVASTATIN 10 MG TABLET 20 MG PO (08:07)
[2017-11-09] MEDS: METOPROLOL 12.5 MG TABLET PO (08:07)
[2017-11-09] MEDS: NYSTATIN 500000 UNIT PO ×4 (08:07→21:33)
[2017-11-09 08:08] LABS: RBC Morphology Normal Morphology
[2017-11-09 08:22] LABS: BUN Creatinine Ratio 47.5 (6-22); Blood Urea Nitrogen 19 mg/dL (7-17); Calcium 8.6 mg/dL (8.4-10.2); Carbon Dioxide 34 mmol/L (22-32); Chloride 92 mmol/L (98-107); Estimated Glomerular Filt Rate > 60.0 mL/min (>60); Glucose 85 mg/dL (80-110); Magnesium 1.8 mg/dL (1.6-2.3); Potassium 4.2 mmol/L (3.4-5.1); Sodium 131 mmol/L (137-145)
[2017-11-09 08:23] LABS: Alanine Aminotransferase 101 IU/L (9-52); Albumin 2.7 g/dL (3.5-5.0); Albumin Globulin Ratio 1.1 (1.0-2.8); Alkaline Phosphatase 74 U/L (38-126); Aspartate Aminotransferase 62 IU/L (14-36); Bilirubin Total 0.6 mg/dL (0.2-1.3); Globulin 2.4 g/dL (1.7-4.1); HEMOLYSIS 0 (0-50); Total Protein 5.1 g/dL (6.3-8.2)
[2017-11-09] MEDS: FLUTICASONE/SALMETEROL 250/50 14 PUFF DISKUS INH ×2 (09:02→18:16)
[2017-11-09] MEDS: ALBUTEROL/IPRATROPIUM 3 ML AMPUL INH ×3 (09:02→18:16)
--- NOTE | 2017-11-09 09:58 | OT.IP.TRT ---
Current Diagnoses Chronic obstructive pulmonary disease with (acute) exacerbation (11/01/17) Occupational Therapy Treatment Note M2 OT-IP Current Condition Start: 11/02/17 17:09 Freq: Status: Active Protocol: Document 11/02/17 17:10 [facility] (Rec: 11/02/17 17:30 [facility] [id number]) Occupational Therapy Current Condition Current Condition Evaluation Date 11/02/17 Treatment Diagnosis Hypoxia, respiratory failure Diagnosis Onset Date 11/01/17 M3 OT- IP Subjective and Pain Start: 11/02/17 17:09 Freq: Status: Active Protocol: Document 11/09/17 09:58 P[facility] (Rec: 11/09/17 15:01 PJM [id number]) OT- Subjective Occupational Therapy Visit Type Type Treatment Note Visit Start Time 09:20 Visit Stop Time 09:58 Total Visit Minutes 38 Occupational Therapy Visit Comments Patient Comments I have to get up and move around so I can get stronger. Patient/Caregiver Goals to return to independent living alone in her home OT Pain Assessment Pain When Pain Assessed After Treatment Pain Present Pain Present Denied Pain M4 OT- IP ADL's Start: 11/02/17 17:09 Freq: Status: Active Protocol: Document 11/09/17 09:58 PJM (Rec: 11/09/17 15:01 PJM [id number]) OT ADL-Grooming General Evaluation Grooming Ability Standby Assistance Areas Needing Assistance Retrieving/Set-up of Grooming Items Combing/Brushing Hair Face Washing Comments OT Grooming Comments Pt completed tasks seated at sink to conserve energy. OT ADL-Oral Care General Eval Oral Care Ability Contact Guard Assistance Areas of Assistance Managing Dentures Retrieving/Set-Up of Items Devices Oral Care Devices Toothbrush Comments Oral Care Comments Pt stood at sink for 3 min fororal care with close SBA to CGA for safety M6 OT- IP Functional Cognition Start: 11/02/17 17:09 Freq: Status: Active Protocol: Document 11/05/17 11:42 [facility] (Rec: 11/05/17 11:49 [facility] [id number]) Cognitive Factors Limiting Selfcare Function Cognitive Ability Level of Alertness Alert Patient Orientation Name Place Situation Attention Span Ability Capable of Focused Attention Capable of Sustained Attention Ability to Follow Commands Able to Follow One Step Commands Able to Follow Multi-Step Commands Memory Description Short Term Impaired Safety Awareness Underestimates Need for Assistance Problem Solving Ability Needs Assist to Identify Solutions M7 OT- IP Mobility and Balance Start: 11/02/17 17:09 Freq: Status: Active Protocol: Document 11/09/17 09:58 PJM (Rec: 11/09/17 15:01 PJ [id number]) OT-Transfer Assessment Sit to and From Stand Sit to and from Stand Contact Guard Assistance Transfers Transfer Ability Contact Guard Assistance Technique Transfer Destination Chair Transfer Technique Stand Step Pivot Devices Transfer Assistive Devices Gait Belt Front Wheeled Walker OT- Gait Assessment Gait Gait Assistance Required: Contact Guard Assist Distance (Feet) (feet) 50 Assistive Devices Assistive Device Gait Belt Front Wheeled Walker Comments Gait Ability Comments Pt requesting to ambulate in room. Pt ambulated 50 (10+ 40ft) ft total with 1 seated rest. Pt can stand for up to 3 min for functional tasks at sink. Provided education re: energy conservation and pacing . Pt on 3.5 L O2 with O2 sats 94-96 seated and decreasing to 87-88 with gait. BP 88/45 seated and 88/55 standing. No c/o dizziness this session. OT- Balance Assessment Sitting Balance and Reactions Static Sitting Balance Ability Normal Standing Balance and Reactions Static Standing Balance Ability Good Dynamic Standing Balance Ability Fair . M9 OT- IP Assessment and Plan Start: 11/02/17 17:09 Freq: Status: Active Protocol: Document 11/09/17 09:58 PJ (Rec: 11/09/17 15:01 [facility] [id number]) OT Summary Assessment and Plan Potential Rehabilitation Potential Good Summary Progress Towards Goals Slow Progress due to Medical Issues Assessment Summary Pt's primary deficit is decreased activity tolerance and frequent coughing. Pt performs slowly and requires frequent rest breaks on 3.5 L O2. Pt completing half of grooming tasks seated at sink to conserve energy. Pt not safe to return home alone and will need subacute rehab services at d/c. Pt very cooperative and very motivated to regain independence. Pt requesting to to take walks to increase endurance/strength. Goals Grooming Goal Standby Assistance Dressing Goal Standby Assistance Toileting Goal Standby Assistance Bathing Goal Minimal Assistance Toilet Transfer Goal Standby Assistance Shower Transfer Goal Contact Guard Assistance Patient/Caregiver Education Goal Demonstrate Energy Conservation and Pacing OT-Other Goals Grooming to be done standing, seated shower Days to Meet Goals 7 Frequency of Treatment Frequency Of Treatment Once a Day Treatment Plan OT Treatment Plan ADL Training Functional Cognition Training Functional Mobility Patient/Family Education Discharge Planning Discharge Recommendations OT Discharge Recommendations SNF Rehab Home Equipment Needs shower seat
[2017-11-09] MEDS: CEFEPIME 2 GM in SODIUM CHLORIDE 0.9% 100 ML 200 ML IV ×2 (10:40→21:32)
--- NOTE | 2017-11-09 12:20 | PT.IPTN ---
Current Diagnoses Chronic obstructive pulmonary disease with (acute) exacerbation (11/01/17) Physical Therapy Treatment Note M2 PT-IP Current Condition Start: 11/02/17 16:58 Freq: NEEDED Status: Active Protocol: Document 11/09/17 12:00 EA (Rec: 11/09/17 12:18 EA [id number]) Physical Therapy Current Condition Current Condition Evaluation Date 11/02/17 Treatment Diagnosis pneumonia Onset Date 11/01/17 Precautions Other Precautions O2 sat Weight Bearing Status Weight Bearing Status Full Weight Bearing M3 PT-IP Subjective Start: 11/02/17 16:58 Freq: NEEDED Status: Active Protocol: Document 11/09/17 12:00 EA (Rec: 11/09/17 12:18 EA [id number]) Subjective Physical Therapy Visit Type Visit Start Time 10:45 Visit Stop Time 11:15 Total Visit Minutes 30 Physical Therapy Visit Comments Patient Comments Patient received sitting on the bed side chair; states she is ready to perform PT; states I want to get better Short Term Goals Be able to wal 100 ft indep. M4 PT-IP Mobility and Gait Start: 11/02/17 16:58 Freq: NEEDED Status: Active Protocol: Document 11/09/17 12:00 EA (Rec: 11/09/17 12:18 EA [id number]) PT-Transfer Assessment Sit to and From Stand Sit to and from Stand Contact Guard Assistance Transfers Transfer Destination Bed Bedside Commode Transfer Technique Stand Step Pivot Transfer Ability Level of Assist Contact Guard Assistance Comments Mobility Comments unstable with dynamic mobility that require CGA with FWW Gait Assessment Gait Gait Assistance Required: Contact Guard Assist Able to Maintain Weight Bearing Status Yes During Gait Gait Deviations General Gait Pattern Decreased Feet Clearance Factors Limiting Gait Function Factors Limiting Gait Function Decreased Activity Tolerance Decreased Strength Poor Balance Respiratory Distress PT-Balance Assessment Sitting Balance and Reactions Static Sitting Balance Ability Good Dynamic Sitting Balance Ability Good Standing Balance and Reactions Static Standing Balance Ability Fair Dynamic Standing Balance Ability Poor M5 PT-IP Objective Assessments Start: 11/02/17 16:58 Freq: NEEDED Status: Active Protocol: Document 11/09/17 12:00 EA (Rec: 11/09/17 12:18 EA [id number]) Orientation Orientation/Cognition Level of Alertness Alert Gross Range of Motion Upper Extremity ROM Assessment Within Functional Limits Lower Extremity ROM Assessment Within Functional Limits Strength Upper Extremity Strength Assessment Within Functional Limits Lower Extremity Strength Assessment Within Functional Limits M6 PT-IP Treatment Start: 11/02/17 16:58 Freq: NEEDED Status: Active Protocol: Document 11/08/17 15:48 MDD (Rec: 11/08/17 16:44 MDD [id number]) Physical Therapy Treatment Education Education Provided Safety Other Treatments Other Treatment Performed Pt required SBA for bed mobility with HOB elevated with use of bed rails (has an electric elevating bed). CGA for sit to stand, therapist assist with supplemental oxygen. Gait training x 150 feet with multiple short standing rest breaks. Cues for looking ahead of her and not at the floor, improving posture and breathing throughout. M7 PT-IP Assessment and Plan Start: 11/02/17 16:58 Freq: NEEDED Status: Active Protocol: Document 11/09/17 12:00 EA (Rec: 11/09/17 12:18 EA [id number]) PT Summary Assessment and Plan Potential Rehabilitation Potential Fair Summary Assessment Summary Patient has improved endurance compared to last visit with normal SAO2 during and after, however, BP fluctuation required constant monitoring for safety though patient did not c/o of nausea or dizziness ; patient cont. to benefits with skilled PT with the focus of increasing distance amb and standing balance. Goals Bed Mobility Goal Standby Assistance Transfer Goal Standby Assistance Gait Goal Standby Assistance Gait Distance 100 ft Days to Meet Goals 2 Frequency of Treatment Frequency Of Treatment Twice a Day Treatment Plan Physical Therapy Treatment Plan Gait Training Therapeutic Exercise Balance Retraining Other Recommendations and Next Treatment Distance ambulation, standing Focus balance Recommendations To Nursing Amount of Assist Needed 1 Person Assist Discharge Recommendations PT Discharge Recommendations SNF Rehab
--- NOTE | 2017-11-09 16:46 | ST.IPDYTX ---
MULE OPERATOR Dysphagia Treatment MULE OPERATOR Dysphagia Treatment Start: 11/02/17 12:01 Freq: Status: Active Protocol: Document 11/09/17 16:37 TLC (Rec: 11/09/17 16:46 TLC [id number]) Dysphagia Treatment Session Time Visit Start Time 16:20 Visit Stop Time 16:35 Total Visit Minutes 15 Visit Information Visit Number 8 Setting Assessment Location Acute Care Visit Type Note Type Discharge Summary Patient Information Subjective Observations Patient was seen sitting up in the chair with her daughter and friend present in the room . Treatment Treatment Activities Ongoing education provided to the patient regarding continuing recommendations and aspiration precautions. Patient was able to recall strategies including effortful swallow which she reportedly used during medication administration earlier. No trials offered. Assessment Patient Response to Treatment Good Rehab Potential Good Assessment of Improvement Patient is compliant with recommendations and is self- aware of her limitations. 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 She verbalized understanding of results of MBSS completed last week. Patient appears at baseline and no further therapy is warranted at this time. Recommend: continue with current recommendations and precautions, re-consult as needed Diet Recommendations Recommendations Continue Current Diet Liquids Order Thin Diet Order Dysphagia Mechanical Medication Recommendations As Tolerated Comments With use of supraglottic swallow maneuver Additional Dietary Needs Reminders to Use Strategies Aspiration Precautions Recommended Precautions Upright at 90 Degrees Small Bites/Sips Effortful Swallow Supraglottic Swallow Treatment Plan Placement Recommendation after Discharge Fdc Facility Appropriate for Continued Therapy Yes Therapy Recommendations D/c patient from at this time. Patient appears to be at baseline and has demonstrated understanding of and compliance with recommendations. No further therapy is warranted. Dysphagia Goals Goals met
--- NOTE | 2017-11-09 16:53 | PT.IPTN ---
Current Diagnoses Chronic obstructive pulmonary disease with (acute) exacerbation (11/01/17) Physical Therapy Treatment Note M2 PT-IP Current Condition Start: 11/02/17 16:58 Freq: NEEDED Status: Active Protocol: Document 11/09/17 12:00 EA (Rec: 11/09/17 12:18 EA [id number]) Physical Therapy Current Condition Current Condition Evaluation Date 11/02/17 Treatment Diagnosis pneumonia Onset Date 11/01/17 Precautions Other Precautions O2 sat Weight Bearing Status Weight Bearing Status Full Weight Bearing M3 PT-IP Subjective Start: 11/02/17 16:58 Freq: NEEDED Status: Active Protocol: Document 11/09/17 15:40 CLB (Rec: 11/09/17 16:53 CLB [id number]) Subjective Physical Therapy Visit Type Type Treatment Note Visit Start Time 15:40 Visit Stop Time 16:05 Total Visit Minutes 25 Number of ENGINEERING COORDINATOR Visits 1 Physical Therapy Visit Comments Patient Comments Pt wanting to get up and walk in [place]. Short Term Goals Be able to wal 100 ft indep. Therapy Pain Assessment Pain Present Pain Present Denied Pain M4 PT-IP Mobility and Gait Start: 11/02/17 16:58 Freq: NEEDED Status: Active Protocol: Document 11/09/17 15:40 [facility] (Rec: 11/09/17 16:53 CLB [id number]) PT-Transfer Assessment Sit to and From Stand Sit to and from Stand Contact Guard Assistance Equipment Transfer Assistive Device Gait Belt Front Wheeled Walker Transfers Transfer Destination Chair Transfer Ability Level of Assist Contact Guard Assistance Gait Assessment Gait Gait Assistance Required: Contact Guard Assist Distance (Feet) (feet) 30 Able to Maintain Weight Bearing Status Yes During Gait Assistive Devices Assistive Device Gait Belt Front Wheeled Walker Gait Deviations General Gait Pattern Decreased Feet Clearance Factors Limiting Gait Function Factors Limiting Gait Function Decreased Activity Tolerance Decreased Strength Poor Balance Respiratory Distress M5 PT-IP Objective Assessments Start: 11/02/17 16:58 Freq: NEEDED Status: Active Protocol: Document 11/09/17 12:00 EA (Rec: 11/09/17 12:18 EA [id number]) Orientation Orientation/Cognition Level of Alertness Alert Gross Range of Motion Upper Extremity ROM Assessment Within Functional Limits Lower Extremity ROM Assessment Within Functional Limits Strength Upper Extremity Strength Assessment Within Functional Limits Lower Extremity Strength Assessment Within Functional Limits M6 PT-IP Treatment Start: 11/02/17 16:58 Freq: NEEDED Status: Active Protocol: Document 11/09/17 15:40 CLB (Rec: 11/09/17 16:53 CLB [id number]) Physical Therapy Treatment Education Education Provided Safety Other Treatments Other Treatment Performed Standing marches. M7 PT-IP Assessment and Plan Start: 11/02/17 16:58 Freq: NEEDED Status: Active Protocol: Document 11/09/17 15:40 [facility] (Rec: 11/09/17 16:53 CLB [id number]) PT Summary Assessment and Plan Potential Rehabilitation Potential Fair Summary Impairments ROM Strength Balance Coordination Cognition Bed Mobility Transfers Gait Activity Tolerance Progress Towards Goals Slow Progress due to Medical Issues Slow Progress due to Activity Tolerance Assessment Summary BP fluctuation required constant monitoring for safety though patient did not c/o dizziness; BP in sitting 100/ 59, standing 105/66, after 30ft in sitting 98/58, standing 90/50. Pt was unable to ambulate any further due to BP fluctuation. Goals Bed Mobility Goal Standby Assistance Transfer Goal Standby Assistance Gait Goal Standby Assistance Gait Distance 100 ft Frequency of Treatment Frequency Of Treatment Twice a Day Treatment Plan Physical Therapy Treatment Plan Gait Training Therapeutic Exercise Balance Retraining Other Recommendations and Next Treatment Distance ambulation, standing Focus balance Recommendations To Nursing Amount of Assist Needed 1 Person Assist Discharge Recommendations PT Discharge Recommendations SNF Rehab
[2017-11-09] MEDS: ASPIRIN EC 81 MG TABLET PO (16:56)
--- NOTE | 2017-11-09 20:37 | PM.PN.1 ---
Subjective Date Patient Seen: 11/09/17 Time Patient Seen: 14:40 Interval history: This is a 77-year-old female with complex medical problems admitted with acute on chronic hypoxic and hypercapnic respiratory failure secondary to COPD/CHF exacerbation . She was transferred to ICU on 11/06/2017 for persistent and progressing hypoxemia, leukocytosis secondary to bilateral hospital-acquired pneumonia and concerns for evolving sepsis. With no events overnight, patient reports significant ongoing clinical improvement, transferred back to ACU.C/c of dyspnea on exertion, productive cough. Exam Vital Signs (past 8 hours): - 11/09/17 13:22 11/09/17 15:15 11/09/17 18:16 Temperature 98.3 F Pulse Rate 80 80 92 H Respiratory Rate 19 Blood Pressure 124/51 H Pulse Oximetry 90 L 97 95 11/09/17 18:20 11/09/17 19:58 Temperature Pulse Rate 92 H Respiratory Rate 19 Blood Pressure Pulse Oximetry 95 94 Fraction of Inspired Oxygen 0.40 Oxygen Delivery Method Nasal Cannula Oxygen Flow Rate 3.5 Narrative Exam Narrative: Constitutional: Well-nourished well-developed female in NAD , she is alert and oriented x 3, oout of bed to chair. HEENT: unremarkable exam. Eyes: PERRLA, EOMI Neck: Supple, no lymphadenopathy no jugular venous distention Cardiovascular: Distant heart sounds, RRR, no discernible murmurs. Pulmonary: with improved aeration BL , distant rales over lover lungs, L>R Gastrointestinal: Abdomen is soft nontender nondistended bowel sounds present no discernible organomegaly Extremities: Warm to touch, no edema Skin: No skin lesions, no rashes Objective Imaging CT scan - chest: Radiologist's impression: CT scan - chest: Radiologist's impression: 1. Bilateral left greater than right lower lobe predominant pneumonia. 2. Followup chest CT in 1 month is recommended to ensure resolution and exclude underlying malignancy. 3. Left adrenal adenoma. 4. Coronary artery disease. Dictated by: Cornell Molina M.D. on 11/06/2017 at 13:36 Approved by: Cornell Molina M.D. on 11/06/2017 at 13:38 Echocardiogram: Radiologist's impression: Interpretation Summary Borderline concentric left ventricular hypertrophy with ejection fraction 60- 65%. Grade I diastolic dysfunction. Moderately dilated left atrium. 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 Mild mitral annular calcification. Mild to moderate mitral regurgitation. Mild tricuspid regurgitation. The right ventricular systolic pressure is estimated at 54 mmHg assuming a right atrial pressure of 3 mm Hg. Moderate pulmonary hypertension. Electronically signed by: Adelaida Bello on Reading Physician:11/02/2017 05:31 PM Labs Result Diagrams: 11/09/17 05:38 11/09/17 05:38 Labs: Laboratory Results - last 24 hr 11/09/17 11/09/17 05:38 05:38 WBC 9.7 RBC 3.73 L Hgb 11.4 L Hct 33.3 L MCV 89.4 MCH 30.6 MCHC 34.2 RDW 14.8 Plt Count 285 Neut % (Auto) Not Reportable Lymph % (Auto) Not Reportable Osborne % (Auto) Not Reportable Eos % (Auto) Not Reportable Baso % (Auto) Not Reportable Total Counted 100 Seg Neutrophils % 67.0 Band Neutrophils % 6.0 Lymphocytes % (Manual) 13.0 L Monocytes % (Manual) 5.0 Eosinophils % (Manual) 3.0 Metamyelocytes % 2.0 H Myelocytes % 4.0 H Neutrophils # (Manual) 7081 H RBC Morphology Normal morphology Sodium 131 L Potassium 4.2 Chloride 92 L Carbon Dioxide 34 H BUN 19 H Creatinine 0.40 L Estimated GFR > 60.0 BUN/Creatinine Ratio 47.5 H Glucose 85 Calcium 8.6 Magnesium 1.8 Total Bilirubin 0.6 AST 62 H ALT 101 H Alkaline Phosphatase 74 Total Protein 5.1 L Albumin 2.7 L Globulin 2.4 Albumin/Globulin Ratio 1.1 Assessment & Plan Plan: Assessment/Plan Narrative: 1. Acute on chronic hypoxic and hypercapnic respiratory failure: Multifactorial, resolving. Presenting with clinical symptoms of COPD/CHF exacerbation, and subsequently with evidence of rapidly evolving hospital-acquired BL LL aspiration pneumonia involving most of the left lung, and resultant sepsis.Patient required ICU transfer on 11/06/2017, currently back to ACU with significant clinical improvement. Continue to treat underlying medical problems. 2. Bilateral, left more than right, nosocomial aspiration pneumonia: with ongoing significant improvement in the last 72h. Currently on IV antibiotic therapy with combination of IV clindamycin and cefepime. Blood cultures with no growth to date. Continue breathing treatments, oral expectorants, symptomatic and supportive care. 3. Sepsis: Secondary to above , resolving.Blood cultures with no growh to date, leukocytosis is resolved. Management as above Continue to treat underlying medical problems 4. COPD/emphysema with exacerbation: resolving, continue breathing treatments, oral expectorants, empiric antibiotic therapy as above. 5. Congestive heart failure, acute on chronic, diastolic: Interval echocardiogram with evidence of left ventricular hypertrophy with diastolic dysfunction, moderate pulmonary hypertension. Continue diuresis. 6. Peripheral vascular disease with recent history of TIA: There is no new clinical symptoms to suggest CVA, continue anti-platelet agents and statins. 7. Protein calorie malnutrition, moderate to severe: Multifactorial. Diet support per systems software specialist recommendations. 8. Deconditioning/debility: PT /OT to evaluate and treat daily, anticipate possible [facility]. Time Spent With Patient Time with patient: 25 - 35 minutes
--- NOTE | 2017-11-09 20:45 | P.PN_ITS ---
Subjective Date Patient Seen: 11/09/17 Time Patient Seen: 14:40 Interval history: This is a 77-year-old female with complex medical problems admitted with acute on chronic hypoxic and hypercapnic respiratory failure secondary to COPD/CHF exacerbation . She was transferred to ICU on 11/06/2017 for persistent and progressing hypoxemia, leukocytosis secondary to bilateral hospital-acquired pneumonia and concerns for evolving sepsis. With no events overnight, patient reports significant ongoing clinical improvement, transferred back to ACU.C/c of dyspnea on exertion, productive cough. Exam Vital Signs (past 8 hours): - 11/09/17 13:22 11/09/17 15:15 11/09/17 18:16 Temperature 98.3 F Pulse Rate 80 80 92 H Respiratory Rate 19 Blood Pressure 124/51 H Pulse Oximetry 90 L 97 95 11/09/17 18:20 11/09/17 19:58 Temperature Pulse Rate 92 H Respiratory Rate 19 Blood Pressure Pulse Oximetry 95 94 Fraction of Inspired Oxygen 0.40 Oxygen Delivery Method Nasal Cannula Oxygen Flow Rate 3.5 Narrative Exam Narrative: Constitutional: Well-nourished well-developed female in NAD , she is alert and oriented x 3, oout of bed to chair. HEENT: unremarkable exam. Eyes: PERRLA, EOMI Neck: Supple, no lymphadenopathy no jugular venous distention Cardiovascular: Distant heart sounds, RRR, no discernible murmurs. Pulmonary: with improved aeration BL , distant rales over lover lungs, L>R Gastrointestinal: Abdomen is soft nontender nondistended bowel sounds present no discernible organomegaly Extremities: Warm to touch, no edema Skin: No skin lesions, no rashes Objective Imaging CT scan - chest: Radiologist's impression: CT scan - chest: Radiologist's impression: 1. Bilateral left greater than right lower lobe predominant pneumonia. 2. Followup chest CT in 1 month is recommended to ensure resolution and exclude underlying malignancy. 3. Left adrenal adenoma. 4. Coronary artery disease. Dictated by: Cornell Molina M.D. on 11/06/2017 at 13:36 Approved by: Cornell Molina M.D. on 11/06/2017 at 13:38 Echocardiogram: Radiologist's impression: Interpretation Summary Borderline concentric left ventricular hypertrophy with ejection fraction 60- 65%. Grade I diastolic dysfunction. Moderately dilated left atrium. 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 Mild mitral annular calcification. Mild to moderate mitral regurgitation. Mild tricuspid regurgitation. The right ventricular systolic pressure is estimated at 54 mmHg assuming a right atrial pressure of 3 mm Hg. Moderate pulmonary hypertension. Electronically signed by: Adelaida Bello on Reading Physician:11/02/2017 05:31 PM Labs Result Diagrams: 11/09/17 05:38 11/09/17 05:38 Labs: Laboratory Results - last 24 hr 11/09/17 11/09/17 05:38 05:38 WBC 9.7 RBC 3.73 L Hgb 11.4 L Hct 33.3 L MCV 89.4 MCH 30.6 MCHC 34.2 RDW 14.8 Plt Count 285 Neut % (Auto) Not Reportable Lymph % (Auto) Not Reportable [place] % (Auto) Not Reportable Eos % (Auto) Not Reportable Baso % (Auto) Not Reportable Total Counted 100 Seg Neutrophils % 67.0 Band Neutrophils % 6.0 Lymphocytes % (Manual) 13.0 L Monocytes % (Manual) 5.0 Eosinophils % (Manual) 3.0 Metamyelocytes % 2.0 H Myelocytes % 4.0 H Neutrophils # (Manual) 7081 H RBC Morphology Normal morphology Sodium 131 L Potassium 4.2 Chloride 92 L Carbon Dioxide 34 H BUN 19 H Creatinine 0.40 L Estimated GFR > 60.0 BUN/Creatinine Ratio 47.5 H Glucose 85 Calcium 8.6 Magnesium 1.8 Total Bilirubin 0.6 AST 62 H ALT 101 H Alkaline Phosphatase 74 Total Protein 5.1 L Albumin 2.7 L Globulin 2.4 Albumin/Globulin Ratio 1.1 Assessment & Plan Plan: Assessment/Plan Narrative: 1. Acute on chronic hypoxic and hypercapnic respiratory failure: Multifactorial, resolving. Presenting with clinical symptoms of COPD/CHF exacerbation, and subsequently with evidence of rapidly evolving hospital- acquired BL LL aspiration pneumonia involving most of the left lung, and resultant sepsis.Patient required ICU transfer on 11/06/2017, currently back to ACU with significant clinical improvement. Continue to treat underlying medical problems. 2. Bilateral, left more than right, nosocomial aspiration pneumonia: with ongoing significant improvement in the last 72h. Currently on IV antibiotic therapy with combination of IV clindamycin and cefepime. Blood cultures with no growth to date. Continue breathing treatments, oral expectorants, symptomatic and supportive care. 3. Sepsis: Secondary to above , resolving.Blood cultures with no growh to date , leukocytosis is resolved. Management as above Continue to treat underlying medical problems 4. COPD/emphysema with exacerbation: resolving, continue breathing treatments , oral expectorants, empiric antibiotic therapy as above. 5. Congestive heart failure, acute on chronic, diastolic: Interval echocardiogram with evidence of left ventricular hypertrophy with diastolic dysfunction, moderate pulmonary hypertension. Continue diuresis. 6. Peripheral vascular disease with recent history of TIA: There is no new clinical symptoms to suggest CVA, continue anti-platelet agents and statins. 7. Protein calorie malnutrition, moderate to severe: Multifactorial. Diet support per butter liquefier recommendations. 8. Deconditioning/debility: PT /OT to evaluate and treat daily, anticipate possible disposition to alf facility. Time Spent With Patient Time with patient: 25 - 35 minutes
[2017-11-10] VITALS (9 sets, daily range): BP systolic 104–149; BP diastolic 58–73; PULSE 79–86; RESP 16–18; TEMP 36.1–37; O2SAT 88–97
[2017-11-10] MEDS: CLINDAMYCIN 600 MG/50 ML PIGGYBACK 50 MG IV ×3 (02:46→18:32)
[2017-11-10] MEDS: GUAIFENESIN/DM 200/20 MG/10 ML UDC PO ×3 (05:00→20:20)
[2017-11-10] MEDS: LEVOTHYROXINE 75 MCG TABLET PO (05:31)
[2017-11-10] MEDS: ALBUTEROL/IPRATROPIUM 3 ML AMPUL INH ×3 (08:41→19:57)
[2017-11-10] MEDS: FLUTICASONE/SALMETEROL 250/50 14 PUFF DISKUS INH ×2 (08:41→19:56)
--- NOTE | 2017-11-10 09:25 | PT.IPTN ---
Current Diagnoses Chronic obstructive pulmonary disease with (acute) exacerbation (11/01/17) Physical Therapy Treatment Note M2 PT-IP Current Condition Start: 11/02/17 16:58 Freq: NEEDED Status: Active Protocol: Document 11/09/17 12:00 EA (Rec: 11/09/17 12:18 EA [id number]) Physical Therapy Current Condition Current Condition Evaluation Date 11/02/17 Treatment Diagnosis pneumonia Onset Date 11/01/17 Precautions Other Precautions O2 sat Weight Bearing Status Weight Bearing Status Full Weight Bearing M3 PT-IP Subjective Start: 11/02/17 16:58 Freq: NEEDED Status: Active Protocol: Document 11/10/17 09:25 GGD (Rec: 11/10/17 10:42 GGD [id number]) Subjective Physical Therapy Visit Type Type Treatment Note Visit Start Time 09:00 Visit Stop Time 09:25 Total Visit Minutes 25 Number of STEWARDESSES TEACHER Visits 2 Physical Therapy Visit Comments Patient Comments Pt states she is going to take a shower. M4 PT-IP Mobility and Gait Start: 11/02/17 16:58 Freq: NEEDED Status: Active Protocol: Document 11/10/17 09:25 GGD (Rec: 11/10/17 10:42 GGD [id number]) PT-Bed Mobility Assessment Supine to Sit Supine to Sit Contact Guard Assistance PT-Transfer Assessment Sit to and From Stand Sit to and from Stand Contact Guard Assistance Equipment Transfer Assistive Device Gait Belt 4 Wheeled Walker Transfers Transfer Destination Bedside Commode Transfer Ability Level of Assist Contact Guard Assistance Gait Assessment Gait Gait Assistance Required: Contact Guard Assist Distance (Feet) (feet) 60 Assistive Devices Assistive Device Gait Belt 4 Wheeled Walker Gait Deviations General Gait Pattern Decreased Feet Clearance Factors Limiting Gait Function Factors Limiting Gait Function Decreased Activity Tolerance Decreased Strength Poor Balance Respiratory Distress Comments Gait Comments Used pt's 3WW with mod cues and CGA. M5 PT-IP Objective Assessments Start: 11/02/17 16:58 Freq: NEEDED Status: Active Protocol: Document 11/09/17 12:00 EA (Rec: 11/09/17 12:18 EA [id number]) Orientation Orientation/Cognition Level of Alertness Alert Gross Range of Motion Upper Extremity ROM Assessment Within Functional Limits Lower Extremity ROM Assessment Within Functional Limits Strength Upper Extremity Strength Assessment Within Functional Limits Lower Extremity Strength Assessment Within Functional Limits M6 PT-IP Treatment Start: 11/02/17 16:58 Freq: NEEDED Status: Active Protocol: Document 11/10/17 09:25 GGD (Rec: 11/10/17 10:42 GGD [id number]) Physical Therapy Treatment Education Education Provided Safety M7 PT-IP Assessment and Plan Start: 11/02/17 16:58 Freq: NEEDED Status: Active Protocol: Document 11/10/17 09:25 GGD (Rec: 11/10/17 10:42 GGD [id number]) PT Summary Assessment and Plan Summary Assessment Summary Pt fatigue with activity. She need standing rest breaks. She had no LOB with gait and good control with 3WW. She feels the 3WW is less stable and needs more practice with it. Frequency of Treatment Frequency Of Treatment Twice a Day Treatment Plan Physical Therapy Treatment Plan Gait Training Therapeutic Exercise Balance Retraining Other Recommendations and Next Treatment Distance ambulation with 3WW, Focus standing balance Recommendations To Nursing Amount of Assist Needed 1 Person Assist Discharge Recommendations PT Discharge Recommendations SNF Rehab
[2017-11-10] MEDS: ROSUVASTATIN 10 MG TABLET 20 MG PO (09:46)
[2017-11-10] MEDS: GABAPENTIN 300 MG CAPSULE PO ×3 (09:47→20:20)
[2017-11-10] MEDS: POTASSIUM CHLORIDE 20 MEQ TAB PO ×2 (09:47→17:04)
[2017-11-10] MEDS: SODIUM CHLORIDE 0.9% FLUSH 10 ML IV ×3 (09:47→22:29)
[2017-11-10] MEDS: POLYETHYLENE GLYCOL 3350 17 GM POWD.PACK PO (09:47)
[2017-11-10] MEDS: ENOXAPARIN 40 MG/0.4 ML SYRINGE SUBCUT (09:47)
[2017-11-10] MEDS: NYSTATIN 500000 UNIT PO ×4 (09:47→20:20)
[2017-11-10] MEDS: CEFEPIME 2 GM in SODIUM CHLORIDE 0.9% 100 ML 200 ML IV ×2 (11:55→22:31)
--- NOTE | 2017-11-10 13:30 | OT.IP.TRT ---
Current Diagnoses Chronic obstructive pulmonary disease with (acute) exacerbation (11/01/17) Occupational Therapy Treatment Note M2 OT-IP Current Condition Start: 11/02/17 17:09 Freq: Status: Active Protocol: Document 11/02/17 17:10 [facility] (Rec: 11/02/17 17:30 [facility] [id number]) Occupational Therapy Current Condition Current Condition Evaluation Date 11/02/17 Treatment Diagnosis Hypoxia, respiratory failure Diagnosis Onset Date 11/01/17 M3 OT- IP Subjective and Pain Start: 11/02/17 17:09 Freq: Status: Active Protocol: Document 11/10/17 13:30 PJM (Rec: 11/10/17 15:25 PJ [id number]) OT- Subjective Occupational Therapy Visit Type Type Treatment Note Visit Start Time 13:05 Visit Stop Time 13:30 Total Visit Minutes 25 Notes Pt on 3L O2 this session; frequent non productive coughing noted Occupational Therapy Visit Comments Patient Comments I want to get up and walk so I can get stronger. Patient/Caregiver Goals to be independent in her own home OT Pain Assessment Pain When Pain Assessed After Treatment Pain Present Pain Present Denied Pain M4 OT- IP ADL's Start: 11/02/17 17:09 Freq: Status: Active Protocol: Document 11/10/17 13:30 PJM (Rec: 11/10/17 15:25 PJM [id number]) OT [id number] General Evaluation Self-Feeding Ability Independent OT ADL-Grooming General Evaluation Grooming Ability Standby Assistance Areas Needing Assistance Combing/Brushing Hair Face Washing OT ADL-Oral Care General Eval Oral Care Ability Standby Assistance Areas of Assistance Managing Dentures Comments Oral Care Comments pt stood 5 min at sink today OT ADL-Dressing General Eval Lower Body Dressing Ability Contact Guard Assistance Areas Needing Assistance Underpants/Brief Comments OT Dressing Comments RN in to remove gaspar. pt donned brief with CGA when standing to pull up over hips, otherwise pt is SBA; provided education re: energy conservation/pacing and to avoid forward bending OT ADL-Bathing General Evaluation Bathing Ability Moderate Assistance Devices Bathing Equipment Hand Held Shower Sprayer Shower Chair without Arms Grab Bars Comments OT Bathing Comments per BENCH MACHINE OPERATOR M6 OT- IP Functional Cognition Start: 11/02/17 17:09 Freq: Status: Active Protocol: Document 11/05/17 11:42 [facility] (Rec: 11/05/17 11:49 [facility] [id number]) Cognitive Factors Limiting Selfcare Function Cognitive Ability Level of Alertness Alert Patient Orientation Name Place Situation Attention Span Ability Capable of Focused Attention Capable of Sustained Attention Ability to Follow Commands Able to Follow One Step Commands Able to Follow Multi-Step Commands Memory Description Short Term Impaired Safety Awareness Underestimates Need for Assistance Problem Solving Ability Needs Assist to Identify Solutions M7 OT- IP Mobility and Balance Start: 11/02/17 17:09 Freq: Status: Active Protocol: Document 11/10/17 13:30 PJM (Rec: 11/10/17 15:25 PJM [id number]) OT-Transfer Assessment Sit to and From Stand Sit to and from Stand Contact Guard Assistance Technique Transfer Destination Chair Transfer Technique Stand Step Pivot Devices Transfer Assistive Devices Gait Belt Front Wheeled Walker Comments Mobility Comments BP 105/60, HR 90, O2 sats 96% on 3L at rest in chair BP 117/58, HR 89, O2 sats 93% on 3L after 5 min standing at sink OT- Gait Assessment Gait Gait Assistance Required: Contact Guard Assist Distance (Feet) (feet) 60 Assistive Devices Assistive Device Gait Belt Front Wheeled Walker Comments Gait Ability Comments Pt walked 15 ft, then sat to rest, then 40 ft in room OT- Balance Assessment Sitting Balance and Reactions Static Sitting Balance Ability Good Dynamic Sitting Balance Ability Good Standing Balance and Reactions Static Standing Balance Ability Good Dynamic Standing Balance Ability Fair Comments Other Balance Tests/Deviations/Treatment standing with FWW : M9 OT- IP Assessment and Plan Start: 11/02/17 17:09 Freq: Status: Active Protocol: Document 11/10/17 13:30 PJM (Rec: 11/10/17 15:25 PJ [id number]) OT Summary Assessment and Plan Potential Rehabilitation Potential Good Summary OT Impairments Strength Balance Functional Mobility Grooming Dressing Toileting Bathing Toilet Transfers Shower Transfers Progress Towards Goals Progressing Toward Goals Assessment Summary Pt making slow, steady daily progress with good effort and participation. Pt demonstrating increased standing tolerance and endurance for functional mobility. Pt now working on lower body dressing. Pt is excellent candidate for SNF rehab when medically stable with terminal block assembler goal of returning to independent living alone in her own home. Goals Days to Meet Goals 6 Frequency of Treatment Frequency Of Treatment Once a Day Treatment Plan OT Treatment Plan ADL Training Functional Cognition Training Functional Mobility Patient/Family Education Discharge Planning Discharge Recommendations OT Discharge Recommendations SNF Rehab Home Equipment Needs shower seat
--- NOTE | 2017-11-10 14:22 | PC.NURSE ---
RESP - assumed care from Adelina EDEN, at rest 3l NC 94%, when phys therapy in, 02 decr to 83% during mobilization, incr the 02 temporarily to 5l to ambul slowly in hallway, ret to chair, ret 02 back to 3l when sat ret to 97%, some congested coughing, no sputum now.
--- NOTE | 2017-11-10 14:45 | PT.IPTN ---
Current Diagnoses Chronic obstructive pulmonary disease with (acute) exacerbation (11/01/17) Physical Therapy Treatment Note M2 PT-IP Current Condition Start: 11/02/17 16:58 Freq: NEEDED Status: Active Protocol: Document 11/09/17 12:00 EA (Rec: 11/09/17 12:18 EA [id number]) Physical Therapy Current Condition Current Condition Evaluation Date 11/02/17 Treatment Diagnosis pneumonia Onset Date 11/01/17 Precautions Other Precautions O2 sat Weight Bearing Status Weight Bearing Status Full Weight Bearing M3 PT-IP Subjective Start: 11/02/17 16:58 Freq: NEEDED Status: Active Protocol: Document 11/10/17 14:45 MDD (Rec: 11/10/17 17:20 MDD [email or web address]) Subjective Physical Therapy Visit Type Type Treatment Note Visit Start Time 14:16 Visit Stop Time 14:45 Total Visit Minutes 29 Notes 3L/min O2 at rest, oxygen saturation at 95%. Decreased to 82% with gait x 20 feet, increased to 4-6 L with activity. Number of BOX SPRING FRAME BUILDER Visits 0 Therapy Pain Assessment Pain Present Pain Present Denied Pain M4 PT-IP Mobility and Gait Start: 11/02/17 16:58 Freq: NEEDED Status: Active Protocol: Document 11/10/17 09:25 GGD (Rec: 11/10/17 10:42 GGD [id number]) PT-Bed Mobility Assessment Supine to Sit Supine to Sit Contact Guard Assistance PT-Transfer Assessment Sit to and From Stand Sit to and from Stand Contact Guard Assistance Equipment Transfer Assistive Device Gait Belt 4 Wheeled Walker Transfers Transfer Destination Bedside Commode Transfer Ability Level of Assist Contact Guard Assistance Gait Assessment Gait Gait Assistance Required: Contact Guard Assist Distance (Feet) (feet) 60 Assistive Devices Assistive Device Gait Belt 4 Wheeled Walker Gait Deviations General Gait Pattern Decreased Feet Clearance Factors Limiting Gait Function Factors Limiting Gait Function Decreased Activity Tolerance Decreased Strength Poor Balance Respiratory Distress Comments Gait Comments Used pt's 3WW with mod cues and CGA. M5 PT-IP Objective Assessments Start: 11/02/17 16:58 Freq: NEEDED Status: Active Protocol: Document 11/09/17 12:00 EA (Rec: 11/09/17 12:18 EA [id number]) Orientation Orientation/Cognition Level of Alertness Alert Gross Range of Motion Upper Extremity ROM Assessment Within Functional Limits Lower Extremity ROM Assessment Within Functional Limits Strength Upper Extremity Strength Assessment Within Functional Limits Lower Extremity Strength Assessment Within Functional Limits M6 PT-IP Treatment Start: 11/02/17 16:58 Freq: NEEDED Status: Active Protocol: Document 11/10/17 14:45 MDD (Rec: 11/10/17 17:20 MDD [id number]) Physical Therapy Treatment Education Education Provided Safety Other Treatments Other Treatment Performed CGA for sit to stand from low recliner. Additional gait training with 3WW x 100 feet with multiple standing rest breaks required. Pt demonstrates good understanding and proper use of brakes. Requires cues for upright posture and proper breathing. M7 PT-IP Assessment and Plan Start: 11/02/17 16:58 Freq: NEEDED Status: Active Protocol: Document 11/10/17 14:45 MDD (Rec: 11/10/17 17:20 MDD [id number]) PT Summary Assessment and Plan Potential Rehabilitation Potential Good Status of Condition at Evaluation Evolving Summary Impairments ROM Strength Balance Coordination Cognition Bed Mobility Transfers Gait Activity Tolerance Progress Towards Goals Slow Progress due to Medical Issues Slow Progress due to Activity Tolerance Assessment Summary Demonstrates good control/ safety with 3WW. Continues to fatigue easily, Increased oxygen needs with activity between 4-6 L/min to maintain O2 sats above 88%. Goals Bed Mobility Goal Standby Assistance Transfer Goal Standby Assistance Gait Goal Standby Assistance Gait Distance 100 ft Frequency of Treatment Frequency Of Treatment Twice a Day Treatment Plan Physical Therapy Treatment Plan Gait Training Therapeutic Exercise Balance Retraining Other Recommendations and Next Treatment Distance ambulation with 3WW, Focus standing balance Recommendations To Nursing Amount of Assist Needed 1 Person Assist Discharge Recommendations PT Discharge Recommendations SNF Rehab
--- NOTE | 2017-11-10 16:21 | P.PN_ITS ---
Subjective Date Patient Seen: 11/10/17 Time Patient Seen: 12:21 Interval history: ADMITTED WITH WORSENING SHORTNESS OF BREATH PHONE TO HAVE A PNEUMONIA CURRENTLY ON CEFEPIME AND CLINDAMYCIN POSSIBLE ASPIRATION GRADUALLY IMPROVING WITH ANTIBIOTIC THERAPY AND SPEECH THERAPY FOR SWALLOWING Exam Vital Signs (past 8 hours): - 11/10/17 09:05 11/10/17 09:06 11/10/17 11:15 Temperature Pulse Rate 82 Respiratory Rate 18 Blood Pressure Pulse Oximetry 92 88 L 92 11/10/17 11:40 11/10/17 15:49 Temperature 98.6 F Pulse Rate 79 82 Respiratory Rate 16 18 Blood Pressure 104/58 L Pulse Oximetry 97 93 Fraction of Inspired Oxygen 0.40 Oxygen Delivery Method Nasal Cannula Oxygen Flow Rate 2.5 Const General: cooperative and comfortable Orientation: alert, awake and oriented x3 HENMT Head: normal to inspection, normocephalic and atraumatic Ears: hearing grossly normal bilaterally Nose: external nose normal Face and sinus: normal facial exam Eyes General: appearance normal, both eyes and all related structures Eyelids: eyelids normal Conjunctivae: conjunctivae normal Sclera: sclerae normal Chest Chest: normal inspection of the chest Resp Effort & Inspection: normal respiratory effort and able to speak in complete sentences Auscultation: bronchovesicular breath sounds and rhonchi (SCATTERED) Cardio Rate: regular rate Rhythm: regular rhythm Heart Sounds: S1 normal and S2 normal GI Inspection: normal to inspection Palpation: soft and no hepatosplenomegaly Skin General: no rashes or lesions noted Neuro General: alert Cranial Nerves: CN's II-XI intact bilaterally Cognition: normal cognition Speech: speech normal Motor: muscle tone normal throughout Extrem General: normal to inspection Other: NIL EDEMA Psych Appearance: grossly normal Mood: congruent mood Affect: normal affect Attitude: cooperative Thought Content: normal Judgment: judgment good Objective Labs Result Diagrams: 11/09/17 05:38 11/09/17 05:38 Assessment & Plan Plan: Assessment/Plan Narrative: 1.Emphysema STILL SMOKING 2 RECENT HISTORY OF TIA CEREBELLAR 3. DYSPHAGIA SPEECH EVAL DONE 4. POSSIBLE PNEUMONIA BEING TREATED WITH CEFEPIME AND CLINDAMYCIN DISPOSITION TO [facility]ISON F[facility]ILITY Time Spent With Patient Time with patient: 25 - 35 minutes
[2017-11-10] MEDS: ASPIRIN EC 81 MG TABLET PO (17:04)
--- NOTE | 2017-11-10 22:46 | PC.NURSE ---
Pt pleasant and cooperative. Admits to slight discomfort r/t coughing, but states does not require any medications to treat. 02 2.5L per high flow cannula sats 93-94%. Wears 02 when up and when in bed consistently.
[2017-11-11] VITALS (12 sets, daily range): BP systolic 75–129; BP diastolic 48–67; PULSE 80–92; RESP 16–22; TEMP 36.1–36.9; O2SAT 91–99
[2017-11-11] MEDS: CLINDAMYCIN 600 MG/50 ML PIGGYBACK 50 MG IV (02:12)
[2017-11-11] MEDS: GUAIFENESIN/DM 200/20 MG/10 ML UDC PO ×3 (05:05→20:41)
[2017-11-11] MEDS: LEVOTHYROXINE 75 MCG TABLET PO (05:05)
[2017-11-11] MEDS: FLUTICASONE/SALMETEROL 250/50 14 PUFF DISKUS INH ×2 (08:37→19:11)
[2017-11-11] MEDS: ALBUTEROL/IPRATROPIUM 3 ML AMPUL INH ×3 (08:37→19:11)
[2017-11-11] MEDS: ENOXAPARIN 40 MG/0.4 ML SYRINGE SUBCUT (09:07)
[2017-11-11] MEDS: GABAPENTIN 300 MG CAPSULE PO ×3 (09:08→20:40)
[2017-11-11] MEDS: NYSTATIN 500000 UNIT PO ×4 (09:09→20:41)
[2017-11-11] MEDS: POTASSIUM CHLORIDE 20 MEQ TAB PO ×2 (09:09→17:09)
[2017-11-11] MEDS: POLYETHYLENE GLYCOL 3350 17 GM POWD.PACK PO (09:09)
[2017-11-11] MEDS: ROSUVASTATIN 10 MG TABLET 20 MG PO (09:09)
[2017-11-11] MEDS: SODIUM CHLORIDE 0.9% FLUSH 10 ML IV ×2 (09:09→20:41)
--- NOTE | 2017-11-11 09:45 | OT.IP.TRT ---
Current Diagnoses Chronic obstructive pulmonary disease with (acute) exacerbation (11/01/17) Occupational Therapy Treatment Note M2 OT-IP Current Condition Start: 11/02/17 17:09 Freq: Status: Active Protocol: Document 11/02/17 17:10 [facility] (Rec: 11/02/17 17:30 [facility] [id number]) Occupational Therapy Current Condition Current Condition Evaluation Date 11/02/17 Treatment Diagnosis Hypoxia, respiratory failure Diagnosis Onset Date 11/01/17 M3 OT- IP Subjective and Pain Start: 11/02/17 17:09 Freq: Status: Active Protocol: Document 11/11/17 09:45 PJM (Rec: 11/11/17 16:05 PJM [id number]) OT- Subjective Occupational Therapy Visit Type Type Treatment Note Visit Start Time 09:06 Visit Stop Time 09:45 Total Visit Minutes 39 Occupational Therapy Visit Comments Patient/Caregiver Goals to return to independence and be able to live alone in her own home OT Pain Assessment Pain When Pain Assessed After Treatment Pain Present Pain Present Denied Pain M4 OT- IP ADL's Start: 11/02/17 17:09 Freq: Status: Active Protocol: Document 11/11/17 09:45 PJM (Rec: 11/11/17 16:05 PJM [id number]) OT ADL-Dressing General Eval Lower Body Dressing Ability Standby Assistance Areas Needing Assistance Underpants/Brief Socks Comments OT Dressing Comments SBA only for standing balance during lower body clothing management OT ADL-Bathing Bathing Type Bathing Type Sponge Bath General Evaluation Bathing Ability Standby Assistance Comments OT Bathing Comments pt completed seated/standing sponge bath with SBA for standing balance M5 OT- IP IADL's Start: 11/02/17 17:09 Freq: Status: Active Protocol: Document 11/11/17 09:45 PJM (Rec: 11/11/17 16:05 PJM [id number]) OT-Instrumental Activities of Daily Living Garage Hand Garage Hand Comments Provided education re: energy conservation and pacing strategies. Pt states she plans to hire assist with house cleaning and friends to assist with laundry, groceries and some meals. Driving Driving Comments Pt states friends can assist with transport M6 OT- IP Functional Cognition Start: 11/02/17 17:09 Freq: Status: Active Protocol: Document 11/05/17 11:42 [facility] (Rec: 11/05/17 11:49 [facility] [id number]) Cognitive Factors Limiting Selfcare Function Cognitive Ability Level of Alertness Alert Patient Orientation Name Place Situation Attention Span Ability Capable of Focused Attention Capable of Sustained Attention Ability to Follow Commands Able to Follow One Step Commands Able to Follow Multi-Step Commands Memory Description Short Term Impaired Safety Awareness Underestimates Need for Assistance Problem Solving Ability Needs Assist to Identify Solutions M7 OT- IP Mobility and Balance Start: 11/02/17 17:09 Freq: Status: Active Protocol: Document 11/11/17 09:45 PJM (Rec: 11/11/17 16:05 [facility] [id number]) OT- Bed Mobility Assessment Rolling Type of Rolling Roll to Left Level of Assistance Independent Head of Bed Elevated Supine to Sit Supine to Sit Assist Independent Scooting Scooting to Edge of Bed Independent OT-Transfer Assessment Sit to and From Stand Sit to and from Stand Standby Assistance Transfers Transfer Ability Standby Assistance Technique Transfer Destination Chair Transfer Technique Stand Step Pivot Devices Transfer Assistive Devices Front Wheeled Walker OT- Balance Assessment Sitting Balance and Reactions Static Sitting Balance Ability Good Dynamic Sitting Balance Ability Good Standing Balance and Reactions Static Standing Balance Ability Good Dynamic Standing Balance Ability Good Comments Other Balance Tests/Deviations/Treatment good balance during lower body : dressing and standing mary care M8 OT- IP Objective Assessments Start: 11/02/17 17:09 Freq: Status: Active Protocol: Document 11/11/17 09:45 PJM (Rec: 11/11/17 16:05 [facility] [id number]) OT Gross Range of Motion Upper Extremity Range of Motion Assessment Within Functional Limits ROM Impairments limited at end range shoulder flexion due to cervical pain OT Strength Upper Extremity Strength Assessment Within Functional Limits Comments Strength Comments Pt completed 3 reps off B shoulder flexion and 3 reps of chest press with rolled towel as limited by decreased endurance and C spine pain. M9 OT- IP Assessment and Plan Start: 11/02/17 17:09 Freq: Status: Active Protocol: Document 11/11/17 09:45 PJM (Rec: 11/11/17 16:05 [facility] [id number]) OT Summary Assessment and Plan Potential Rehabilitation Potential Good Summary Assessment Summary Pt continues to make daily progress with self care skills and is now SBA to independent with standing at sink for grooming, dressing and toileting. Will assess showering ability in AM. Pt would like to d/c home alone but may lack sufficient endurance for IADLS. Would recommend paid caregiver assist for 2-3 hrs/day if pt d/c's home with home health PT/ OT vs short term SNF to maximize endurance and activity tolerance as needed for living alone. Goals Grooming Goal Independent Dressing Goal Independent Toileting Goal Independent Bathing Goal Standby Assistance Toilet Transfer Goal Independent Shower Transfer Goal Standby Assistance Patient/Caregiver Education Goal Demonstrate Energy Conservation and Pacing Days to Meet Goals 2 Frequency of Treatment Frequency Of Treatment Once a Day Treatment Plan OT Treatment Plan ADL Training Functional Cognition Training Functional Mobility Patient/Family Education Discharge Planning Discharge Recommendations OT Discharge Recommendations SNF Rehab Other Discharge Recommendations vs home with paid caregiver assist and HH OT/PT Home Equipment Needs pt has all necessary equipt
--- NOTE | 2017-11-11 12:22 | PT.IPTN ---
Current Diagnoses Chronic obstructive pulmonary disease with (acute) exacerbation (11/01/17) Physical Therapy Treatment Note M2 PT-IP Current Condition Start: 11/02/17 16:58 Freq: NEEDED Status: Active Protocol: Document 11/09/17 12:00 EA (Rec: 11/09/17 12:18 EA [id number]) Physical Therapy Current Condition Current Condition Evaluation Date 11/02/17 Treatment Diagnosis pneumonia Onset Date 11/01/17 Precautions Other Precautions O2 sat Weight Bearing Status Weight Bearing Status Full Weight Bearing M3 PT-IP Subjective Start: 11/02/17 16:58 Freq: NEEDED Status: Active Protocol: Document 11/11/17 12:00 GGD (Rec: 11/11/17 12:22 GGD [id number]) Subjective Physical Therapy Visit Type Type Treatment Note Visit Start Time 11:35 Visit Stop Time 12:00 Total Visit Minutes 25 Number of LABOR ECONOMIST Visits 1 Physical Therapy Visit Comments Patient Comments Pt states she needs to walk. Therapy Pain Assessment Pain Present Pain Present Denied Pain M4 PT-IP Mobility and Gait Start: 11/02/17 16:58 Freq: NEEDED Status: Active Protocol: Document 11/11/17 12:00 GGD (Rec: 11/11/17 12:22 GGD [id number]) PT-Transfer Assessment Sit to and From Stand Sit to and from Stand Contact Guard Assistance Equipment Transfer Assistive Device Gait Belt 4 Wheeled Walker Transfers Transfer Destination Chair Transfer Ability Level of Assist Contact Guard Assistance Gait Assessment Gait Gait Assistance Required: Contact Guard Assist Distance (Feet) (feet) 220 Assistive Devices Assistive Device Gait Belt 4 Wheeled Walker Gait Deviations General Gait Pattern Decreased Feet Clearance Factors Limiting Gait Function Factors Limiting Gait Function Decreased Activity Tolerance Decreased Strength Poor Balance Respiratory Distress Comments Gait Comments Used pt's 3WW with mod cues and CGA. Pt needed 3 standing rest breaks with gait. O2 at rest on 2L 95% with gait on 2L 89% and on 3 L 92%. M5 PT-IP Objective Assessments Start: 11/02/17 16:58 Freq: NEEDED Status: Active Protocol: Document 11/09/17 12:00 EA (Rec: 11/09/17 12:18 EA [id number]) Orientation Orientation/Cognition Level of Alertness Alert Gross Range of Motion Upper Extremity ROM Assessment Within Functional Limits Lower Extremity ROM Assessment Within Functional Limits Strength Upper Extremity Strength Assessment Within Functional Limits Lower Extremity Strength Assessment Within Functional Limits M6 PT-IP Treatment Start: 11/02/17 16:58 Freq: NEEDED Status: Active Protocol: Document 11/11/17 12:00 GGD (Rec: 11/11/17 12:22 GGD [id number]) Physical Therapy Treatment Education Education Provided Safety M7 PT-IP Assessment and Plan Start: 11/02/17 16:58 Freq: NEEDED Status: Active Protocol: Document 11/11/17 12:00 GGD (Rec: 11/11/17 12:22 GGD [id number]) PT Summary Assessment and Plan Summary Assessment Summary Pt is progressing with control and safety with 3WW. She did fatigue and had decrease in O2 sats. Frequency of Treatment Frequency Of Treatment Twice a Day Treatment Plan Other Recommendations and Next Treatment Distance ambulation with 3WW, Focus standing balance Recommendations To Nursing Amount of Assist Needed 1 Person Assist Discharge Recommendations PT Discharge Recommendations SNF Rehab
--- NOTE | 2017-11-11 13:40 | PM.PN.1 ---
Subjective Date Patient Seen: 11/11/17 Time Patient Seen: 10:40 Interval history: THIS LADY WAS ADMITTED FROM HOME 1 DAY AFTER BEING DISCHARGED FROM THE HOSPITAL SHE WAS ADMITTED FOR CEREBELLAR TIA AND SHE PROBABLY HAD SOME DYSPHAGIA SHE HAS ASPIRATION PNEUMONIA WHICH HAS IMPROVED WITH ANTIBIOTICS THE LAST 10 DAYS SHE DOES NOT COMPLAIN OF ANY COUGH PHLEGM OR DIFFICULTY WITH BREATHING SHE IS ON MODIFIED DIET PER THE RECOMMENDATION OF THE SPEECH THERAPY Exam Vital Signs (past 8 hours): - 11/11/17 08:00 11/11/17 08:50 Temperature 97.9 F Pulse Rate 88 84 Respiratory Rate 22 Blood Pressure 129/53 H Pulse Oximetry 97 97 Fraction of Inspired Oxygen 0.40 Oxygen Delivery Method High Flow Nasal Cannula Oxygen Flow Rate 2 Const General: cooperative, healthy appearing and comfortable [facility] Head: normal to inspection, normocephalic and atraumatic Ears: hearing grossly normal bilaterally Nose: external nose normal Eyes General: appearance normal, both eyes and all related structures Eyelids: eyelids normal Conjunctivae: conjunctivae normal Sclera: sclerae normal Pupils: PERRL EOM: EOM intact bilaterally Resp Effort & Inspection: normal respiratory effort, able to speak in complete sentences and no use of accessory muscles Auscultation: clear to auscultation bilaterally Cardio Palpation: normal PMI Rate: regular rate Rhythm: regular rhythm Heart Sounds: S1 normal and S2 normal GI Inspection: normal to inspection Palpation: soft and no hepatosplenomegaly Skin General: no rashes or lesions noted Neuro General: alert, awake and oriented x3 Cranial Nerves: CN's II-XI intact bilaterally Cognition: normal cognition Speech: speech normal Motor: muscle tone normal throughout Extrem General: normal to inspection Other: NIL EDEMA Psych Appearance: grossly normal Mood: congruent mood Affect: normal affect Attitude: cooperative Thought Process: normal Thought Content: normal Judgment: judgment good Objective Labs Result Diagrams: 11/09/17 05:38 11/09/17 05:38 Assessment & Plan Plan: Assessment/Plan Narrative: 1. ASPIRATION PNEUMONIA COMPLETED A COURSE OF ANTIBIOTICS IMPROVED 2. DYSPHAGIA MOST LIKELY DUE TO THE RECENT CVA 3. HYPOXIA AND ACUTE RESPIRATORY FAILURE IS RESOLVED AWAITING PLACEMENT IN AN [facility] FACILITY FOR REHAB Time Spent With Patient Time with patient: 25 - 35 minutes
--- NOTE | 2017-11-11 13:44 | P.PN_ITS ---
Subjective Date Patient Seen: 11/11/17 Time Patient Seen: 10:40 Interval history: THIS LADY WAS ADMITTED FROM HOME 1 DAY AFTER BEING DISCHARGED FROM THE HOSPITAL SHE WAS ADMITTED FOR CEREBELLAR TIA AND SHE PROBABLY HAD SOME DYSPHAGIA SHE HAS ASPIRATION PNEUMONIA WHICH HAS IMPROVED WITH ANTIBIOTICS THE LAST 10 DAYS SHE DOES NOT COMPLAIN OF ANY COUGH PHLEGM OR DIFFICULTY WITH BREATHING SHE IS ON MODIFIED DIET PER THE RECOMMENDATION OF THE SPEECH THERAPY Exam Vital Signs (past 8 hours): - 11/11/17 08:00 11/11/17 08:50 Temperature 97.9 F Pulse Rate 88 84 Respiratory Rate 22 Blood Pressure 129/53 H Pulse Oximetry 97 97 Fraction of Inspired Oxygen 0.40 Oxygen Delivery Method High Flow Nasal Cannula Oxygen Flow Rate 2 Const General: cooperative, healthy appearing and comfortable [facility] Head: normal to inspection, normocephalic and atraumatic Ears: hearing grossly normal bilaterally Nose: external nose normal Eyes General: appearance normal, both eyes and all related structures Eyelids: eyelids normal Conjunctivae: conjunctivae normal Sclera: sclerae normal Pupils: PERRL EOM: EOM intact bilaterally Resp Effort & Inspection: normal respiratory effort, able to speak in complete sentences and no use of accessory muscles Auscultation: clear to auscultation bilaterally Cardio Palpation: normal PMI Rate: regular rate Rhythm: regular rhythm Heart Sounds: S1 normal and S2 normal GI Inspection: normal to inspection Palpation: soft and no hepatosplenomegaly Skin General: no rashes or lesions noted Neuro General: alert, awake and oriented x3 Cranial Nerves: CN's II-XI intact bilaterally Cognition: normal cognition Speech: speech normal Motor: muscle tone normal throughout Extrem General: normal to inspection Other: NIL EDEMA Psych Appearance: grossly normal Mood: congruent mood Affect: normal affect Attitude: cooperative Thought Process: normal Thought Content: normal Judgment: judgment good Objective Labs Result Diagrams: 11/09/17 05:38 11/09/17 05:38 Assessment & Plan Plan: Assessment/Plan Narrative: 1. ASPIRATION PNEUMONIA COMPLETED A COURSE OF ANTIBIOTICS IMPROVED 2. DYSPHAGIA MOST LIKELY DUE TO THE RECENT CVA 3. HYPOXIA AND ACUTE RESPIRATORY FAILURE IS RESOLVED AWAITING PLACEMENT IN AN CUSTODIAL FACILITY FOR REHAB Time Spent With Patient Time with patient: 25 - 35 minutes
--- NOTE | 2017-11-11 15:20 | PT.IPTN ---
Current Diagnoses Chronic obstructive pulmonary disease with (acute) exacerbation (11/01/17) Physical Therapy Treatment Note M2 PT-IP Current Condition Start: 11/02/17 16:58 Freq: NEEDED Status: Active Protocol: Document 11/09/17 12:00 EA (Rec: 11/09/17 12:18 EA [id number]) Physical Therapy Current Condition Current Condition Evaluation Date 11/02/17 Treatment Diagnosis pneumonia Onset Date 11/01/17 Precautions Other Precautions O2 sat Weight Bearing Status Weight Bearing Status Full Weight Bearing M3 PT-IP Subjective Start: 11/02/17 16:58 Freq: NEEDED Status: Active Protocol: Document 11/11/17 15:20 GGD (Rec: 11/11/17 17:05 GGD [email or web address]) Subjective Physical Therapy Visit Type Type Treatment Note Visit Start Time 14:55 Visit Stop Time 15:20 Total Visit Minutes 25 Number of MARKET RESEARCHER Visits 2 Physical Therapy Visit Comments Patient Comments Pt states she was tired after walking this am. M4 PT-IP Mobility and Gait Start: 11/02/17 16:58 Freq: NEEDED Status: Active Protocol: Document 11/11/17 15:20 GGD (Rec: 11/11/17 17:05 GGD [email or web address]) PT-Bed Mobility Assessment Supine to Sit Supine to Sit Standby Assistance PT-Transfer Assessment Sit to and From Stand Sit to and from Stand Contact Guard Assistance Equipment Transfer Assistive Device Gait Belt 4 Wheeled Walker Transfers Transfer Destination Chair Transfer Ability Level of Assist Contact Guard Assistance Gait Assessment Gait Gait Assistance Required: Contact Guard Assist Distance (Feet) (feet) 220 Assistive Devices Assistive Device Gait Belt 4 Wheeled Walker Gait Deviations General Gait Pattern Decreased Feet Clearance Factors Limiting Gait Function Factors Limiting Gait Function Decreased Activity Tolerance Decreased Strength Poor Balance Respiratory Distress Comments Gait Comments Pt needed one standing rest break. O2 on 2 L with rest at 94%, with activity on 3L at 90 %. M5 PT-IP Objective Assessments Start: 11/02/17 16:58 Freq: NEEDED Status: Active Protocol: Document 11/09/17 12:00 EA (Rec: 11/09/17 12:18 EA [id number]) Orientation Orientation/Cognition Level of Alertness Alert Gross Range of Motion Upper Extremity ROM Assessment Within Functional Limits Lower Extremity ROM Assessment Within Functional Limits Strength Upper Extremity Strength Assessment Within Functional Limits Lower Extremity Strength Assessment Within Functional Limits M6 PT-IP Treatment Start: 11/02/17 16:58 Freq: NEEDED Status: Active Protocol: Document 11/11/17 15:20 GGD (Rec: 11/11/17 17:05 GGD [email or web address]) Physical Therapy Treatment Education Education Provided Safety M7 PT-IP Assessment and Plan Start: 11/02/17 16:58 Freq: NEEDED Status: Active Protocol: Document 11/11/17 15:20 GGD (Rec: 11/11/17 17:05 GGD [email or web address]) PT Summary Assessment and Plan Summary Assessment Summary Pt is progressing with mobility. She had no unsteadiness or LOB. She did fatigue quickly. She has low tolerance to gait. Frequency of Treatment Frequency Of Treatment Twice a Day Treatment Plan Other Recommendations and Next Treatment Distance ambulation with 3WW, Focus standing balance Recommendations To Nursing Amount of Assist Needed 1 Person Assist Discharge Recommendations PT Discharge Recommendations SNF Rehab Other Discharge Recommendations Pt hopes to D/C home with help .
[2017-11-11] MEDS: ASPIRIN EC 81 MG TABLET PO (17:09)
--- NOTE | 2017-11-11 17:57 | PC.NURSE ---
Pt up in chair for evening meal. 02 per high flow nasal cannula in place. Pt conversant with female visitor. Taking full liquid diet as per request; yogurt and ice cream.
--- NOTE | 2017-11-11 19:16 | PC.NURSE ---
Pt has ambulated around [facility] @ beginning of evening shift and again in the middle of the shift on portable oxygen. Able to converse with ambulation. Unable to obtain 02 saturation level d/t coldness of hands. Checked pt upon return to bed on 2L per nc and sats 98%. R.T. treatment in progress. Pt reports feeling better today. Lesions remain to tongue. Pt rinsing mouth after each respiratory treatment. Is eager to discharge to home, but understands may need SNF placement short term.
[2017-11-11] MEDS: ACETAMINOPHEN 325 MG TABLET 650 MG PO (20:40)
[2017-11-12] MEDS: LEVOTHYROXINE 75 MCG TABLET PO (05:33)
[2017-11-12] MEDS: GUAIFENESIN/DM 200/20 MG/10 ML UDC PO ×2 (05:33→12:16)
[2017-11-12 06:21] VITALS: PULSE 75; RESP 20; O2SAT 97
[2017-11-12] MEDS: ALBUTEROL/IPRATROPIUM 3 ML AMPUL INH ×2 (06:21→13:15)
[2017-11-12] MEDS: FLUTICASONE/SALMETEROL 250/50 14 PUFF DISKUS INH (06:21)
[2017-11-12 07:00] VITALS: BP 95/59; PULSE 88; RESP 20; TEMP 36.8; O2SAT 94
[2017-11-12] MEDS: POLYETHYLENE GLYCOL 3350 17 GM POWD.PACK PO (08:11)
[2017-11-12] MEDS: POTASSIUM CHLORIDE 20 MEQ TAB PO (08:12)
[2017-11-12] MEDS: GABAPENTIN 300 MG CAPSULE PO (08:13)
[2017-11-12] MEDS: ENOXAPARIN 40 MG/0.4 ML SYRINGE SUBCUT (08:14)
[2017-11-12] MEDS: NYSTATIN 500000 UNIT PO ×2 (08:14→12:16)
[2017-11-12] MEDS: ROSUVASTATIN 10 MG TABLET 20 MG PO (08:14)
[2017-11-12] MEDS: SODIUM CHLORIDE 0.9% FLUSH 10 ML IV (08:19)
[2017-11-12 09:58] VITALS: O2SAT 89; O2SAT 95
--- NOTE | 2017-11-12 10:25 | PT.IPTN ---
Current Diagnoses Chronic obstructive pulmonary disease with (acute) exacerbation (11/01/17) Physical Therapy Treatment Note M2 PT-IP Current Condition Start: 11/02/17 16:58 Freq: NEEDED Status: Active Protocol: Document 11/09/17 12:00 EA (Rec: 11/09/17 12:18 EA [id number]) Physical Therapy Current Condition Current Condition Evaluation Date 11/02/17 Treatment Diagnosis pneumonia Onset Date 11/01/17 Precautions Other Precautions O2 sat Weight Bearing Status Weight Bearing Status Full Weight Bearing M3 PT-IP Subjective Start: 11/02/17 16:58 Freq: NEEDED Status: Active Protocol: Document 11/12/17 10:25 GGD (Rec: 11/12/17 11:49 GGD [email or web address]) Subjective Physical Therapy Visit Type Type Treatment Note Visit Start Time 10:00 Visit Stop Time 10:25 Number of ICICLE MACHINE OPERATOR Visits 3 Physical Therapy Visit Comments Patient Comments Pt states she hopes to go home today. M4 PT-IP Mobility and Gait Start: 11/02/17 16:58 Freq: NEEDED Status: Active Protocol: Document 11/12/17 10:25 GGD (Rec: 11/12/17 11:49 GGD [email or web address]) PT-Transfer Assessment Sit to and From Stand Sit to and from Stand Standby Assistance Equipment Transfer Assistive Device Gait Belt 4 Wheeled Walker Transfers Transfer Destination Chair Transfer Ability Level of Assist Contact Guard Assistance Gait Assessment Gait Gait Assistance Required: Contact Guard Assist Distance (Feet) (feet) 375 Assistive Devices Assistive Device Gait Belt 4 Wheeled Walker Gait Deviations General Gait Pattern Decreased Feet Clearance Factors Limiting Gait Function Factors Limiting Gait Function Decreased Activity Tolerance Decreased Strength Poor Balance Respiratory Distress Comments Gait Comments O2 at rest on 2 L 98%, with activity on 3 L 97%, with activity on 2 L 94%. M5 PT-IP Objective Assessments Start: 11/02/17 16:58 Freq: NEEDED Status: Active Protocol: Document 11/09/17 12:00 EA (Rec: 11/09/17 12:18 EA [id number]) Orientation Orientation/Cognition Level of Alertness Alert Gross Range of Motion Upper Extremity ROM Assessment Within Functional Limits Lower Extremity ROM Assessment Within Functional Limits Strength Upper Extremity Strength Assessment Within Functional Limits Lower Extremity Strength Assessment Within Functional Limits M6 PT-IP Treatment Start: 11/02/17 16:58 Freq: NEEDED Status: Active Protocol: Document 11/11/17 15:20 GGD (Rec: 11/11/17 17:05 GGD [email or web address]) Physical Therapy Treatment Education Education Provided Safety M7 PT-IP Assessment and Plan Start: 11/02/17 16:58 Freq: NEEDED Status: Active Protocol: Document 11/12/17 10:25 GGD (Rec: 11/12/17 11:49 GGD [email or web address]) PT Summary Assessment and Plan Summary Assessment Summary Pt improving tolerance to gait . She was able to progress gait distance. She had no LOB with mobility. Frequency of Treatment Frequency Of Treatment Twice a Day Recommendations To Nursing Amount of Assist Needed 1 Person Assist Discharge Recommendations PT Discharge Recommendations Home with Assistance Home Health
[2017-11-12 12:00] VITALS: BP 87/50; PULSE 86; RESP 20; TEMP 36.3; O2SAT 99
--- NOTE | 2017-11-12 12:21 | OT.IP.TRT ---
Current Diagnoses Chronic obstructive pulmonary disease with (acute) exacerbation (11/01/17) Occupational Therapy Treatment Note M2 OT-IP Current Condition Start: 11/02/17 17:09 Freq: Status: Active Protocol: Document 11/02/17 17:10 [facility] (Rec: 11/02/17 17:30 [facility] [id number]) Occupational Therapy Current Condition Current Condition Evaluation Date 11/02/17 Treatment Diagnosis Hypoxia, respiratory failure Diagnosis Onset Date 11/01/17 M3 OT- IP Subjective and Pain Start: 11/02/17 17:09 Freq: Status: Active Protocol: Document 11/12/17 12:14 [facility] (Rec: 11/12/17 12:21 [facility] [id number]) OT- Subjective Occupational Therapy Visit Type Type Treatment Note Visit Start Time 11:25 Visit Stop Time 12:10 Total Visit Minutes 45 Occupational Therapy Visit Comments Patient Comments Pt wanting to shower. OT Pain Assessment Pain When Pain Assessed After Treatment Pain Present Pain Present Denied Pain M4 OT- IP ADL's Start: 11/02/17 17:09 Freq: Status: Active Protocol: Document 11/12/17 12:14 [facility] (Rec: 11/12/17 12:21 [facility] [id number]) OT ADL-Grooming General Evaluation Grooming Ability Independent OT ADL-Dressing General Eval Lower Body Dressing Ability Standby Assistance Areas Needing Assistance Underpants/Brief Socks OT ADL-Toileting General Evaluation Toileting Ability Independent OT ADL-Bathing Bathing Type Bathing Type Shower General Evaluation Bathing Ability Independent Standby Assistance Comments OT Bathing Comments SBA while stepping into and out of the shower otherwsie with use of grab bars MOD I. Pt able to sit and take rest breaks appropriately. M5 OT- IP IADL's Start: 11/02/17 17:09 Freq: Status: Active Protocol: Document 11/12/17 12:14 [facility] (Rec: 11/12/17 12:21 [facility] [id number]) OT-Instrumental Activities of Daily Living Home Safety Awareness Awareness of Need for Assistance at Home Good Awareness Ability to Problem Solve Emergency Able to Problem Solve Situations Home Safety Comments Pt to have friends assist. Meal Preparation Meal Preparation Caregiver Provides Assist Accounts Payable Coordinator Accounts Payable Coordinator Comments GAve pt energy conservation info. Driving Driving Comments Pt states friends can assist with transport M6 OT- IP Functional Cognition Start: 11/02/17 17:09 Freq: Status: Active Protocol: Document 11/12/17 12:14 [facility] (Rec: 11/12/17 12:21 [facility] [id number]) Cognitive Factors Limiting Selfcare Function Cognitive Ability Level of Alertness Alert Patient Orientation Name Age Birthday Month Date Year Day of Week Place Situation Attention Span Ability Capable of Focused Attention Capable of Sustained Attention Ability to Follow Commands Able to Follow Multi-Step Commands Memory Description No Deficits Noted Safety Awareness Underestimates Need for Assistance Problem Solving Ability No deficits Noted Needs Assist to Identify Solutions Cognitive Comments Cognitive Assessment Comments Assist to identifiy solutions for new problems/situations. M7 OT- IP Mobility and Balance Start: 11/02/17 17:09 Freq: Status: Active Protocol: Document 11/12/17 12:14 [facility] (Rec: 11/12/17 12:21 [facility] [id number]) OT-Transfer Assessment Sit to and From Stand Sit to and from Stand Independent Transfers Transfer Ability Independent Standby Assistance Technique Transfer Destination Chair Shower Stall Toilet Transfer Technique Stand Step Pivot Devices Transfer Assistive Devices Front Wheeled Walker OT- Balance Assessment Sitting Balance and Reactions Static Sitting Balance Ability Normal Dynamic Sitting Balance Ability Normal Standing Balance and Reactions Static Standing Balance Ability Good Dynamic Standing Balance Ability Good Comments Other Balance Tests/Deviations/Treatment Needing use of FWW for dynamic : balance. M8 OT- IP Objective Assessments Start: 11/02/17 17:09 Freq: Status: Active Protocol: Document 11/11/17 09:45 [facility] (Rec: 11/11/17 16:05 [facility] [id number]) OT Gross Range of Motion Upper Extremity Range of Motion Assessment Within Functional Limits ROM Impairments limited at end range shoulder flexion due to cervical pain OT Strength Upper Extremity Strength Assessment Within Functional Limits Comments Strength Comments Pt completed 3 reps off B shoulder flexion and 3 reps of chest press with rolled towel as limtied by decreased endurance and C spine pain. M9 OT- IP Assessment and Plan Start: 11/02/17 17:09 Freq: Status: Active Protocol: Document 11/12/17 12:14 [facility] (Rec: 11/12/17 12:21 [facility] [id number]) OT Summary Assessment and Plan Potential Rehabilitation Potential Good Summary Assessment Summary Pt continues to make daily progress with self care skills and is now SBA to independent with standing at sink for grooming, dressing and toileting. Will assess showering ability in AM. Pt would like to d/c home alone but may lack sufficient endurance for IADLS. Would recommend paid caregiver assist for 2-3 hrs/day if pt d /c's home with home health PT/ OT vs short term SNF to maximize endurance and activity tolerance as needed for living alone. Goals Days to Meet Goals 1 Frequency of Treatment Frequency Of Treatment Once a Day Discharge Recommendations OT Discharge Recommendations Home with Assistance Home Health Home Equipment Needs pt has all necessary equipt
--- NOTE | 2017-11-12 12:29 | PM.DS.1 ---
History of Present Illness Chief complaint: Shortness of Breath Discharge Providers Date of admission: 11/01/17 20:49 Primary care physician: Sofia Christie PA-C Consults: 11/01/17 19:34 Consult to Respiratory Therapy Evaluate & Treat Comment: Physician Instructions: Evaluate and treat 11/01/17 22:55 Consult to Dietitian, Adult Routine Comment: Reason For Exam: decreased appetite 11/02/17 11:18 Consult to Occupational Therapy Evaluate & Treat Comment: Physician Instructions: Evaluate and treat Consult to Physical Therapy Evaluate & Treat Comment: Physician Instructions: Evaluate and Treat Consult to Speech Therapy Evaluate & Treat Comment: Physician Instructions: Evaluate and treat Discharge provider: Allie Michael MD Exam Vital Signs (past 8 hours): - 11/12/17 06:21 11/12/17 07:00 11/12/17 09:58 Temperature 98.3 F Pulse Rate 75 88 Respiratory Rate 20 20 Blood Pressure 95/59 L Pulse Oximetry 97 94 95 11/12/17 12:00 Temperature 97.4 F L Pulse Rate 86 Respiratory Rate 20 Blood Pressure 87/50 L Pulse Oximetry 99 Fraction of Inspired Oxygen 0.40 Oxygen Delivery Method Room Air Oxygen Flow Rate 2 Const General: cooperative and comfortable Orientation: alert, awake and oriented x3 HENMT Head: normal to inspection, normocephalic and atraumatic Ears: hearing grossly normal bilaterally Nose: external nose normal Mouth: oral mucosae normal Eyes General: appearance normal, both eyes and all related structures Eyelids: eyelids normal Conjunctivae: conjunctivae normal Sclera: sclerae normal Pupils: PERRL EOM: EOM intact bilaterally Neck Neck: normal visual inspection Thyroid: thyroid normal Resp Effort & Inspection: normal respiratory effort, able to speak in complete sentences, no respiratory distress and no use of accessory muscles Auscultation: clear to auscultation bilaterally Cardio Rate: regular rate Rhythm: regular rhythm Heart Sounds: S1 normal, S2 normal and murmur (SYSTOLIC PRECORDIUM) GI Inspection: normal to inspection Palpation: soft and no hepatosplenomegaly Skin General: no rashes or lesions noted Neuro General: alert, awake, oriented x3 and no meningeal signs Cranial Nerves: CN's II-XI intact bilaterally Cognition: normal cognition Speech: speech normal Motor: muscle tone normal throughout Extrem Other: NIL EDEMA Psych Appearance: grossly normal Speech and Movement: speech and movement normal Mood: congruent mood Affect: normal affect Attitude: cooperative Thought Process: normal Thought Content: normal Judgment: judgment good Objective Labs Result Diagrams: 11/09/17 05:38 11/09/17 05:38 Discharge Plan Discharge Plan Patient Disposition: Home Health Service Provider Discharge Instructions Diet: Regular Diet comment: Manouvers as recommended by Speech therapy Activity: ad alla Oxygen: HOME O2 Discharge Data Primary Care Provider: Sofia Christie Attending Provider: Rashad Alvarez Admit Date/Time: 11/01/17 20:49 Discharges patient from system. Discharge Date/Time: 11/12/17 15:39
--- NOTE | 2017-11-12 14:36 | CM.DPC ---
DCP Cont: Had a lengthy conversation w/pt and her dtr Kenyetta (over speaker phone) re DCP today. Pt adamant about going home and states to dtr that I will accept help this time. Dtr is hesitant and reiterates she does not feel pt is safe to return home w/help from her friends. TRAINING AND DEVELOPMENT DIRECTOR and RT present, TRAINING AND DEVELOPMENT DIRECTOR Ada feels pt can DC home d/t remarkable improvement in mobility. RT plans to f/u re: concerns voiced from pt/dtr about [employer] not following up adequately. Pt agreeable to [facility] being arranged although does waiver this afternoon about needing PT/OT I don't think it will help. Pt ultimately agreeable and friend was at bedside to encourage pt (somewhat) and transport pt home and gather belongings. This REPORT DEVELOPER, w/help from RN JAYRO Traylor, gave referral to [facility] and faxed packet w/face sheet, HH order, H+P, prog notes, therapy notes, no DC summary available. F/u available Wednesday. Requested PT/OT/RETANNED LEATHER ROLLER/RN. Home w/friends and [facility]. Updated Renea tatum/CARLOS. Renae Oliver, REPORT DEVELOPER
--- NOTE | 2017-11-12 14:55 | PC.NURSE ---
Pt has been discharged and is ready to go home with home O2. IV removed and arrangements made for HH.
--- NOTE | 2017-11-12 16:40 | P.DS_ITS ---
History of Present Illness Chief complaint: Shortness of Breath Discharge Providers Date of admission: 11/01/17 20:49 Primary care physician: Sofia Christie PA-C Consults: 11/01/17 19:34 Consult to Respiratory Therapy Evaluate & Treat Comment: Physician Instructions: Evaluate and treat 11/01/17 22:55 Consult to Dietitian, Adult Routine Comment: Reason For Exam: decreased appetite 11/02/17 11:18 Consult to Occupational Therapy Evaluate & Treat Comment: Physician Instructions: Evaluate and treat Consult to Physical Therapy Evaluate & Treat Comment: Physician Instructions: Evaluate and Treat Consult to Speech Therapy Evaluate & Treat Comment: Physician Instructions: Evaluate and treat 11/12/17 14:23 Consult to Home Health Routine Comment: Reason For Exam: HH PT/OT/RN/RETAIL ADVERTISING ACCOUNT EXECUTIVE Upon DC Discharge provider: Allie Michael MD Summary Discharge Diagnosis: 1. ACUTE HYPOXIC HYPERCAPNIC RESPIRATORY FAILURE 2. NOSOCOMIAL ASPIRATION PNEUMONIA 3. 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 COPD/ASTHMA 6. PULMONARY HYPERTENSION ON ECHOCARDIOGRAM 7. DYSPHAGIA Hospital Course: THIS VERY PLEASANT LADY WAS ADMITTED TO THE HOSPITAL THE PREVIOUS ADMISSION WITH A CEREBELLAR CVA WAS DISCHARGED HOME SHE ALSO HAD COPD ASTHMA AND NEWLY PRESCRIBED MEDICATIONS ARE BRONCHODILATORS BY INHALATION AND NEBULIZERS SHE WENT HOME AND STAYED ONLY FOR 1 DAY AND THEN CAME BACK TO THE HOSPITAL WITH WORSENING SHORTNESS OF BREATH AND GENERAL FATIGUE AND MALAISE WAS HYPOXIC AND ADMITTED TO THE ICU FOR MONITORING AND MANAGEMENT WITH ANTIBIOTICS AND RESPIRATORY THERAPY AND DIURETICS AND GRADUALLY GOT BETTER TO BE TRANSFERRED UP TO THE FLOOR AND SPEECH THERAPY EVALUATION AND RECOMMENDATION OF MANEUVERS FOR DYSPHAGIA CHEST IS MUCH IMPROVED AND CLINICALLY CLEAR ON AUSCULTATION TODAY AT DISCHARGE HOWEVER THE CT OF THE CHEST REPORT RECOMMENDS FOLLOW-UP OF HIS CT IN A MONTH'S TIME FOR RESOLUTION AND RULING OUT ANY UNDERLYING MALIGNANCY Status at Discharge Functional status at discharge: independent ambulation Overall status at discharge: patient is back to baseline Time Spent with Patient Greater than 30 minutes Exam Vital Signs (past 8 hours): - 11/12/17 09:58 11/12/17 12:00 Temperature 97.4 F L Pulse Rate 86 Respiratory Rate 20 Blood Pressure 87/50 L Pulse Oximetry 95 99 Fraction of Inspired Oxygen 0.40 Oxygen Delivery Method Nasal Cannula Oxygen Flow Rate 2 Objective Labs Result Diagrams: 11/09/17 05:38 11/09/17 05:38 Discharge Plan Discharge Plan Patient Disposition: Home Health Service Provider Discharge Instructions Diet: Regular Diet comment: Manouvers as recommended by Speech therapy Activity: ad alla Oxygen: HOME O2 Discharge Data Primary Care Provider: Sofia Christie Attending Provider: Rashad Alvarez Admit Date/Time: 11/01/17 20:49 Discharges patient from system. Discharge Date/Time: 11/12/17 15:39
== END 2017-11-12 15:39 | disposition home health service (06) | DRG 177 ==
LOC: ED 20:49 → AC 20:50 → ICU 22:12 → AC 11-03 13:32 → ICU 11-06 14:48 → AC 11-12 12:29 → ICU 09-14 07:41
PROVIDERS: Hospitalist; Internal Medicine; Admitting Provider Internal Medicine; Emergency Provider Emergency Medicine; Family Provider Physician Assistant; PCP Physician Assistant; Visit Provider Internal Medicine
DX: J69.0 Pneumonitis due to inhalation of food and vomit (principal); J96.21 Acute and chronic respiratory failure with hypoxia; J96.22 Acute and chronic respiratory failure with hypercapnia; I50.33 Acute on chronic diastolic (congestive) heart failure; J44.1 Chronic obstructive pulmonary disease with (acute) exacerbation; E44.0 Moderate protein-calorie malnutrition; Z95.3 Presence of xenogenic heart valve; Y95 Nosocomial condition; Z68.23 Body mass index [BMI] 23.0-23.9, adult; I73.9 Peripheral vascular disease, unspecified; E78.5 Hyperlipidemia, unspecified; E03.9 Hypothyroidism, unspecified; I11.0 Hypertensive heart disease with heart failure; I65.8 Occlusion and stenosis of other precerebral arteries; F17.210 Nicotine dependence, cigarettes, uncomplicated; R13.10 Dysphagia, unspecified; Z86.73 Personal history of transient ischemic attack (TIA), and cerebral infarction without residual deficits
CPT/HCPCS: 36415; 36591; 36592; 36600; 70450; 70551; 71045; 71250; 74230; 80048; 80053; 81001; 81003; 81015; 82550; 82553; 82805; 83605; 83690; 83735; 83880; 84145; 84484; 85025; 85610; 87040; 87086; 87797; 92526; 92610; 92611; 93005; 93010; 93306; 94150; 94618; 94640; 94667; 94668; 94760; 94762; 94799; 96360; 96361; 96365; 96366; 96375; 97110; 97116; 97162; 97165; 97530; 97535; 99284; 99285; 99406; J0692; J1200; J1650; J1720; J1940; J1956; J2405; J2930; J7613

== ENCOUNTER → 2017-11-15 10:28 | Outpatient (CLI) | payer MEDICARE, OTHER, SELFPAY ==
[2017-11-01 22:48] VITALS: BMI 23.8
[2017-11-15 12:21] LABS: Hematocrit 36.9 % (36-46); Hemoglobin 12.7 g/dL (12.0-16.0)
== END ==
PROVIDERS: Family Provider Physician Assistant; PCP Physician Assistant
DX: I63.9 Cerebral infarction, unspecified (principal)
CPT/HCPCS: 36415; 85014; 85018

== ENCOUNTER → 2017-12-06 12:26 | Outpatient (CLI) | payer MEDICARE, OTHER, SELFPAY ==
[2017-11-01 22:48] VITALS: BMI 23.8
--- NOTE | 2017-12-06 13:12 | DI.CT.S_ITS ---
PROCEDURE: CT CHEST WO CON INDICATIONS: Follow up on pneumonia; abnormal CT chest TECHNIQUE: Noncontrast 5 mm thick sections acquired from the pulmonary apices to the posterior costophrenic angles. 7 mm thick coronal and sagittal MIP reformats were then acquired. For radiation dose reduction, the following was used: automated exposure control, adjustment of mA and/or kV according to patient size. COMPARISON: [facility], CT, CT CHEST WO [facility], 11/06/2017, 13:14. FINDINGS: Image quality: Excellent. Lungs and pleura: There is a mild degree of residual infiltrate seen involving both lower lobes, greater on the left than on the right. No new areas of pulmonary consolidation are seen Centrilobular emphysematous changes are seen. These are more prominent at the lung apices than at the lung bases. No pneumothorax or pleural effusions are seen. The central airways are patent. Mediastinum: Poststernotomy changes are seen. There is an aortic valve prosthesis seen. Heart size is normal. No pericardial effusion. No mediastinal adenopathy by size criteria. Thoracic aorta and central pulmonary arteries are normal in size. Atherosclerotic calcification is noted. Esophagus is normal in caliber. No hiatal hernia. 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 Age-appropriate bony degenerative changes are seen. No suspicious bony lesions. No vertebral body compression fractures. No axillary or supraclavicular adenopathy by size criteria. Thyroid gland demonstrates no significant noncontrast abnormality. Abdomen: A left adrenal adenoma is again seen. Cholecystectomy clips are seen. The visualized portions of the upper abdominal structures are otherwise unremarkable for imaging technique. IMPRESSION: Significant interval improvement in the bilateral lower lobe infiltrates, with a mild degree of residual infiltrate seen. An additional followup noncontrast chest CT is recommended in one month to assure complete resolution. Incidental note is made of: Sternotomy wires and aortic valve prosthesis Left bifid rib Centrilobular emphysematous changes Left adrenal adenoma Cholecystectomy Atherosclerotic calcification Dictated by: Jayjay Belle M.D. on 12/06/2017 at 13:37 Approved by: Jayjay Belle M.D. on 12/06/2017 at 13:41
== END ==
PROVIDERS: Family Provider Physician Assistant; PCP Physician Assistant; Visit Provider Physician Assistant
DX: J18.9 Pneumonia, unspecified organism (principal); R93.8 Abnormal findings on diagnostic imaging of other specified body structures
CPT/HCPCS: 71250

== ENCOUNTER → 2018-01-10 12:51 | Outpatient (CLI) | payer MEDICARE, OTHER, SELFPAY ==
[2017-11-01 22:48] VITALS: BMI 23.8
--- NOTE | 2018-01-10 13:00 | DI.CT.S_ITS ---
PROCEDURE: CT CHEST WO CON INDICATIONS: Follow up on resolution of pneumonia TECHNIQUE: Noncontrast 5 mm thick sections acquired from the pulmonary apices to the posterior costophrenic angles. 7 mm thick coronal and sagittal MIP reformats were then acquired. For radiation dose reduction, the following was used: automated exposure control, adjustment of mA and/or kV according to patient size. COMPARISON: [facility], CT, CT CHEST WO CON, 11/06/2017, 13:14. [facility], CT, CT CHEST WO CON, 12/06/2017, 12:42. FINDINGS: Image quality: Excellent. Lungs and pleura: No consolidation. Ill-defined scarring or atelectasis in the lung bases, further decrease since the prior study. No pleural effusions or pneumothorax. Central and peripheral airways are patent and normal in caliber. There are chronic scattered granulomatous changes. Mediastinum: Heart size is normal. Coronary artery calcifications are present. No pericardial effusion. No mediastinal adenopathy by size criteria. Thoracic aorta and central pulmonary arteries are normal in size. There are scattered atheromatous calcifications in the aorta. Esophagus is normal in caliber. No hiatal hernia. Bones and chest wall: No suspicious bony lesions. Diffuse osteopenia. Chronic left bifid rib. No vertebral body compression fractures. No axillary or supraclavicular adenopathy by size criteria. Thyroid gland grossly unremarkable. Abdomen: Visualized upper abdominal solid organs and bowel loops appear normal in the absence of contrast. IMPRESSION: Overall, further decrease in bibasilar scarring and atelectasis since the prior study. Coronary artery disease. Dictated by: Haroldo Barton M.D. on 01/10/2018 at 14:13 Approved by: Haroldo Barton M.D. on 01/10/2018 at 14:19
[2018-01-10 14:17] LABS: Add Manual Diff / Slide Review NO; Eosinophils Percent Auto 4.5 % (2-4); Hematocrit 38.6 % (36-46); Hemoglobin 12.8 g/dL (12.0-16.0); Lymphocytes Percent Auto 38.9 % (25-40); Mean Corpuscular HGB Conc 33.3 % (30-36); Mean Corpuscular Hemoglobin 29.6 PG (26-34); Mean Corpuscular Volume 88.9 fL (80-100); Monocytes Percent Auto 9.9 % (3-14); Neutrophils Absolute Auto 2700 /uL (3000-5900); Neutrophils Percent Auto 45.7 % (50-75); Platelet Count 188 X10^3/uL (150-400); Red Blood Cell Count 4.35 X10^6/uL (4.0-5.2); Red Cell Distribution Width 14.9 % (11.6-14.8)
[2018-01-10 14:36] LABS: Alanine Aminotransferase 23 IU/L (9-52); Albumin 4.2 g/dL (3.5-5.0); Albumin Globulin Ratio 1.8 (1.0-2.8); Alkaline Phosphatase 63 U/L (38-126); Aspartate Aminotransferase 27 IU/L (14-36); Bilirubin Total 0.4 mg/dL (0.2-1.3); Blood Urea Nitrogen 18 mg/dL (7-17); Calcium 9.6 mg/dL (8.4-10.2); Carbon Dioxide 34 mmol/L (22-32); Chloride 97 mmol/L (98-107); Estimated Glomerular Filt Rate > 60.0 mL/min (>60); Globulin 2.4 g/dL (1.7-4.1); Glucose 86 mg/dL (80-110); HEMOLYSIS < 15 (0-50); Lactate Dehydrogenase 507 U/L (313-618); Potassium 4.5 mmol/L (3.4-5.1); Sodium 139 mmol/L (137-145); Total Protein 6.6 g/dL (6.3-8.2)
== END ==
PROVIDERS: Family Provider Physician Assistant; PCP Physician Assistant; Visit Provider Nurse Practitioner Gerontology
DX: J18.9 Pneumonia, unspecified organism (principal); J44.9 Chronic obstructive pulmonary disease, unspecified; I25.10 Atherosclerotic heart disease of native coronary artery without angina pectoris; F17.200 Nicotine dependence, unspecified, uncomplicated
CPT/HCPCS: 36415; 71250; 80053; 83615; 85025

== ENCOUNTER 2018-01-17 14:55 | Oncology outpatient (ONC) | payer MEDICARE, OTHER, SELFPAY ==
[2017-11-01 22:48] VITALS: BMI 23.8
--- NOTE | 2018-01-17 12:23 | P.PNONC_ITS ---
PN -Subjective Interval history: The patient is a 77 year old Female who is being seen in the clinic 01/17/2018 . 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 On exam today the patient has no new complaints whatsoever. She was hospitalized over the summer in October for COPD exacerbation also bacterial pneumonia. Patient is just now finishing up several weeks of physical therapy and occupational therapy. She is not requiring daytime oxygen she will wear oxygen at night. No worsening cough. No fever, chills. No worsening shortness of breath. No new pain. No new lumps or bumps. Appetite is stable, weight is stable. No issue with bladder or bowels. No skin changes. Activity tolerance is unchanged. Most recent routine surveillance imaging was a PET scan January 08, 2017 which was without evidence of lymphoma. Oncology History 1. 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 2. Original diagnosis of follicular lymphoma in 1995 with recurrence in the right tonsil in 2002, treated with CHOP x6 and radiation. It is not clear whether Rituxan was added at that time. A third possible episode in 2002, treated with dexamethasone and rituximab, last therapy 01/2006. Past Medical History 3. Iron deficiency anemia in the past. Workup included colonoscopy, polypectomy, and snare cautery, 12/25/2010. 4. GERD. 5. Thrombosis after first . 6. High-resolution CAT for a reduced diffusion capacity, 02/06/2013. Found to have central lobular emphysema, areas of bronchiectasis, and bibasilar peripheral septal thickening, but no masses. She is a long-term smoker. 7. Porcine aortic valve replacement in 2013. Past Surgical History 3. Iron deficiency anemia in the past. Workup included colonoscopy, polypectomy, and snare cautery, 12/25/2010. 7. Porcine aortic valve replacement in 2013. Home Medications and Allergies Home Medications Medication Instructions Recorded Confirmed Type cholecalciferol (vitamin D3) 1,000 unit PO QDAY #0 07/29/12 11/23/17 History [Vitamin D3] multivitamin [Multiple Vitamins] 1 tab PO QDAY #0 01/01/17 11/23/17 History gabapentin 300 mg capsule 300 - 600 mg PO TID #360 cap 09/20/17 11/23/17 Rx PreserVision AREDS 1 tab PO BID 10/29/17 11/23/17 History cyclosporine 1 drp OPHTHALMIC (EYE) DIRECTED 10/29/17 11/23/17 History levothyroxine 1 tab PO DAILY 10/29/17 11/23/17 History melatonin 10 mg PO BEDTIME 10/29/17 11/23/17 History metoprolol tartrate 12.5 mg PO BID 10/29/17 11/23/17 History polyethylene glycol 3350 17 gm PO DAILY 10/29/17 11/23/17 History nebulizers #1 each 10/31/17 11/23/17 Rx nortriptyline 25 mg capsule 25 mg PO BEDTIME #90 cap 01/06/18 Rx rosuvastatin 20 mg tablet 20 mg PO DAILY #90 tab 01/06/18 Rx Allergies Allergy/AdvReac Type Severity Reaction Status Date / Time ampicillin [AMPICILLIN] Allergy Severe BLOODY Verified 11/23/17 10:00 DIARRHEA Iodinated Contrast- Oral and Allergy Severe ANAPHYLAXIS Verified 11/23/17 10:00 IV Dye [IODINATED CONTRAST MEDIA - IV DYE] oxycodone [OXYCODONE] Allergy Intermediate MAKES ME Verified 11/23/17 10:00 MEAN, CHANGE OF PERSONALITY adhesive [ADHESIVE] Allergy Mild REDNESS Verified 11/23/17 10:00 Exam - Constitutional positive no acute distress, positive thin - Routine HEENT Exam Head: Present: normocephalic, atraumatic Eye: Present: conjunctivae pink. Absent: conjunctival icterus, scleral injection ENT: Present: mucous membranes moist, oropharynx clear - Routine Neck Exam Present: supple. Absent: lymphadenopathy - Routine Chest/Breast/Axilla Exam Axillae: Absent: lymphadenopathy, tenderness - Routine Respiratory Exam Present: Clear to auscultation bilaterally, decreased breath sounds, diminished air movement. Absent: accessory muscle use, prolonged expiratory phase, rales, respiratory distress, rhonchi, wheezes - Routine Cardiovascular Exam Present: RRR, S1, S2. Absent: murmur, gallop, rubs, JVD - Routine Abdominal Exam Present: soft, normoactive bowel sounds. Absent: tenderness, distended, rebound , guarding, organomegaly, mass - Routine Extremities Exam Absent: edema, calf tenderness - Routine Skin Exam Present: intact, normal turgor. Absent: petechiae, rash - Routine Neurological Exam Present: alert, oriented X3 - Routine Psychiatric Exam Present: normal affect Results - Imaging Additional studies: Procedures Injection of anticoagulant (09/01/12) Assessment and Plan (1) Non Hodgkin's lymphoma Problem details: In remission Current visit: No Status: Inactive 77-year-old female who carries a diagnosis of follicular lymphoma. Reassuringly , on exam today there are no clinical signs or symptoms of disease recurrence. Additionally, CBC, CMP, LDH remain unremarkable. Discussed with the patient noting since she has been disease free since 2005, per national guidelines, no more routine scheduled imaging rather imaging as indicated for ?red flags? on exam or for concerning new symptoms. Patient verbalizes understanding. Return to clinic in 6 months time I would like for the patient to establish with 1 of our new oncologist also check CBC, CMP, LDH. (1) Non Hodgkin's lymphoma Qualifiers: Non-Hodgkin lymphoma type: follicular
[2018-01-17 15:20] VITALS: BP 143/80; PULSE 69; RESP 18; TEMP 36.6; O2SAT 93
== END 2018-01-27 13:34 ==
PROVIDERS: Family Provider Physician Assistant; PCP Physician Assistant; Visit Provider Internal Medicine Hematology & Oncology
DX: C82.80 Other types of follicular lymphoma, unspecified site (principal)
CPT/HCPCS: 99214

== ENCOUNTER → 2018-03-21 12:36 | Outpatient (CLI) | payer MEDICARE, OTHER, SELFPAY ==
[2018-03-21 10:08] VITALS: BMI 23.8
--- NOTE | 2018-03-21 12:38 | DI.RAD.S_ITS ---
PROCEDURE: XR CHEST 2V INDICATIONS: bronchitis TECHNIQUE: 2 views of the chest were acquired. COMPARISON: [facility], CR, XR CHEST 1V, 11/01/2017, 20:21. FINDINGS: Surgical changes and devices: Median sternotomy wires are seen. Surgical fusion hardware in lower cervical spine is also noted. Lungs and pleura: No pleural effusions or pneumothorax. Lungs are clear. There is hyperinflation. Calcified granuloma in left upper to midlung field is again seen. Mediastinum: Mediastinal contours are normal. Heart size is normal. Bones and chest wall: No suspicious bony abnormalities. Soft tissues appear unremarkable. IMPRESSION: COPD. No acute cardiopulmonary pathology. Dictated by: Adam Champion M.D. on 03/21/2018 at 13:22 Approved by: Adam Champion M.D. on 03/21/2018 at 13:34
== END ==
PROVIDERS: Family Provider Physician Assistant; PCP Physician Assistant; Visit Provider Family Medicine
DX: J40 Bronchitis, not specified as acute or chronic (principal); J44.9 Chronic obstructive pulmonary disease, unspecified
CPT/HCPCS: 71046

== ENCOUNTER → 2018-04-07 07:53 | Outpatient (CLI) | payer MEDICARE, OTHER, SELFPAY ==
[2018-03-21 10:08] VITALS: BMI 23.8
[2018-04-07 10:22] LABS: BUN Creatinine Ratio 33.3 (6-22); Blood Urea Nitrogen 20 mg/dL (7-17); Calcium 9.5 mg/dL (8.4-10.2); Carbon Dioxide 32 mmol/L (22-32); Chloride 99 mmol/L (98-107); Cholesterol 122 mg/dL (140-199); Estimated Glomerular Filt Rate > 60.0 mL/min (>60); Glucose 76 mg/dL (80-110); HDL Cholesterol 68 mg/dL (40-60); HEMOLYSIS < 15 (0-50); LDL Cholesterol Calculated 43 mg/dL (<100); Potassium 4.5 mmol/L (3.4-5.1); Sodium 139 mmol/L (137-145); Triglycerides 53 mg/dL (35-150)
[2018-04-07 10:52] LABS: Free T4, Direct Thyroxine 1.56 ng/dL (0.78-2.19)
[2018-04-07 11:06] LABS: Thyroid Stimulating Hormone 2.33 uIU/mL (0.47-4.68)
== END ==
PROVIDERS: Family Provider Physician Assistant; PCP Physician Assistant; Visit Provider Physician Assistant
DX: E03.9 Hypothyroidism, unspecified (principal); E78.00 Pure hypercholesterolemia, unspecified; I10 Essential (primary) hypertension; Z00.00 Encounter for general adult medical examination without abnormal findings; Z79.899 Other long term (current) drug therapy
CPT/HCPCS: 36415; 80048; 80061; 84439; 84443

== ENCOUNTER → 2018-05-19 11:28 | Outpatient (CLI) | payer MEDICARE, OTHER, SELFPAY ==
[2018-03-21 10:08] VITALS: BMI 23.8
--- NOTE | 2018-05-19 11:30 | DI.MRI.S_ITS ---
PROCEDURE: MR CERVICAL SPINE WO/W CON INDICATIONS: numbness/tingling both hands, headache, neck pain, R shdr pn TECHNIQUE: Noncontrast sagittal T1 spin echo and T2 fast spin echo, sagittal STIR, foraminal oblique sagittal T2 fast spin echo, axial gradient echo or T2 fast spin echo through the cervical spine. After the administration of contrast, axial and sagittal T1 spin echo with fat saturation through the cervical spine. COMPARISON: [facility], CR, THORACIC SPINE 3 VIEWS, 10/15/2016, 16:12. [facility], RG, XR C-SPINE 4-6V, 03/04/2003, 9:55. [facility], MR, C-SPINE WITHOUT CONTRAST, 09/20/2013, 14:50. MR, CERVICAL SPINE W&W/O CONTRAST, 01/13/2007, 9:55. FINDINGS: Image quality: Suboptimal evaluation because of metallic artifact from fusion hardware. Alignment and curvature: There is straightening of cervical curvature. Marrow: Marrow is normal in overall signal, without suspicious enhancement. There is laminectomy and posterior fusion at C3-C7. Spinal cord: Visualized spinal cord has normal size and signal. No cerebellar tonsillar herniation. No abnormal intramedullary enhancement. Paraspinous soft tissues: No paravertebral masses or suspicious enhancement. C2-3: Preserved disc height. Moderate disc desiccation.. The central canal is patent. No foraminal stenosis. C3-4: Surgically fused. Mild posterior ossified. The central canal is patent. Moderate left and mild right foraminal stenosis. C4-5: Surgically fused. Mild posterior disc bulge. The central canal is patent. No foraminal stenosis. C5-6: Surgically fused. Mild posterior disc bulge. The central canal is patent. Moderate left foraminal stenosis. No right foraminal stenosis. C6-7: Moderate loss of disc height and disc desiccation. Mild posterior disc bulge. The central canal is patent. Moderate foraminal stenosis bilaterally. C7-T1: Normal appearance. IMPRESSION: 1. Extensive degenerative and surgical changes in cervical spine as described. 2. No central canal stenosis. 3. Multilevel foraminal stenosis as described. Dictated by: Raghav Castillo M.D. on 05/19/2018 at 16:48 Approved by: Raghav Castillo M.D. on 05/19/2018 at 17:08
== END ==
PROVIDERS: Family Provider Physician Assistant; PCP Physician Assistant; Visit Provider Physician Assistant
DX: M54.2 Cervicalgia (principal); M47.812 Spondylosis without myelopathy or radiculopathy, cervical region; M48.02 Spinal stenosis, cervical region; R51 Headache; M25.511 Pain in right shoulder; R20.0 Anesthesia of skin; Z85.848 Personal history of malignant neoplasm of other parts of nervous tissue; Z98.890 Other specified postprocedural states; Z98.1 Arthrodesis status
CPT/HCPCS: 72156; A9579

== ENCOUNTER → 2018-11-02 15:59 | Outpatient (CLI) | payer MEDICARE, OTHER, SELFPAY ==
[2018-03-21 10:08] VITALS: BMI 23.8
[2018-11-02 17:13] LABS: Blood Urea Nitrogen 20 mg/dL (7-17); Calcium 9.6 mg/dL (8.4-10.2); Carbon Dioxide 33 mmol/L (22-32); Chloride 99 mmol/L (98-107); Estimated Glomerular Filt Rate > 60.0 mL/min (>60); Glucose 85 mg/dL (80-110); HEMOLYSIS < 15 (0-50); Potassium 4.3 mmol/L (3.4-5.1); Sodium 138 mmol/L (137-145)
== END ==
PROVIDERS: Family Provider Physician Assistant; PCP Physician Assistant; Visit Provider Physician Assistant
DX: Z01.818 Encounter for other preprocedural examination (principal)
CPT/HCPCS: 36415; 80048

== ENCOUNTER → 2018-11-16 14:42 | Outpatient (CLI) | payer MEDICARE, OTHER, SELFPAY ==
[2018-03-21 10:08] VITALS: BMI 23.8
--- NOTE | 2018-11-16 | DI.MG.S_ITS ---
BILATERAL DIGITAL SCREENING MAMMOGRAM 3D/2D WITH CAD: 11/16/2018 CLINICAL: Routine screening. Family history of breast cancer. Comparison is made to exams dated: 10/08/2016 mammogram, 10/05/2014 mammogram, and 08/11/2013 mammogram - [facility]. There are scattered fibroglandular elements in both breasts. Current study was also evaluated with a Computer Aided Detection (CAD) system. No significant masses, calcifications, or other findings are seen in either breast. There has been no significant interval change. IMPRESSION: NEGATIVE There is no mammographic evidence of malignancy. A 1 year screening mammogram is recommended. This exam was interpreted at Station ID: [id number]. NOTE: For mammograms, a report in lay terms will be sent to the patient. Approximately 15% of breast malignancies will not be visualized mammographically. In the management of a palpable breast mass, a negative mammogram must not discourage biopsy of a clinically suspicious lesion. Electronically Signed By: Wang milligan/sharon:11/17/2018 18:26:44 letter sent: Normal Exam ACR BI-RADS Category 1: Negative [id number]
--- NOTE | 2018-11-16 14:45 | DI.US.S_ITS ---
PROCEDURE: US CAROTID DOPPLER BI INDICATIONS: TEMPORARY LOSS OF VISION LT EYW; HX STROKE TECHNIQUE: Color and pulse Doppler interrogation was performed of both carotid systems, with image documentation and velocity measurements. COMPARISON: [facility], , CAROTID ARTERY DOPPLER BILAT, 10/08/2016, 8:02. FINDINGS: Stenosis calculations are based on SRU (Society of Radiologists in Ultrasound) criteria. Right side: Brachial blood pressure: 167/76 mm Hg. Common carotid artery peak systolic velocity: 107 cm/sec. Internal carotid artery peak systolic velocity: 122 cm/sec. Internal carotid artery end diastolic velocity: 35 cm/sec. External carotid artery peak systolic velocity: 105 cm/sec. ICA/CCA peak systolic ratio: 1.14. Chu scale imaging description: Dense atheromatous calcification is present at the carotid bifurcation. Percent internal carotid artery stenosis: Less than 50% stenosis. Vertebral artery: Flow direction is antegrade. Left side: Brachial blood pressure: 166/79 mm Hg. Common carotid artery peak systolic velocity: 209 cm/sec. Internal carotid artery peak systolic velocity: 103 cm/sec. Internal carotid artery end diastolic velocity: 22 cm/sec. External carotid artery peak systolic velocity: 134 cm/sec. ICA/CCA peak systolic ratio: 0.49. Chu scale imaging description: Dense atheromatous calcifications are present at the carotid bifurcation. Percent internal carotid artery stenosis: 50-69% stenosis. Vertebral artery: Flow direction is antegrade. IMPRESSION: 1. Less than 50% stenosis of the right internal carotid artery which is unchanged when compared with the prior ultrasound dated 10/08/16. 2. 50-69% stenosis of the left internal carotid artery which is increased when compared with the prior study. Dictated by: Shruti Sotomayor M.D. on 11/16/2018 at 16:58 Approved by: Shruti Sotomayor M.D. on 11/16/2018 at 17:00
--- NOTE | 2018-11-16 14:45 | DI.MRI.S_ITS ---
PROCEDURE: MR HEAD/BRAIN WO/W CON INDICATIONS: Transient loss of vision L eye x 2; hx of stroke TECHNIQUE: Noncontrast axial T1 spin echo, axial T2 fast spin echo, sagittal and axial FLAIR, coronal T2 fast spin echo, axial gradient echo, axial diffusion and ADC through the brain. After the administration of contrast, axial and coronal T1 spin echo with fat saturation through the brain. COMPARISON: [facility], MR, MR HEAD/BRAIN WO CON, 10/29/2017, 17:53. [facility], CT, CT HEAD/BRAIN WO CON, 10/29/2017, 11:48. FINDINGS: Image quality: Diagnostic CSF spaces: Basal cisterns are patent. No extra-axial fluid collections. Ventricles are normal in size and shape. Brain: No midline shift. No intracranial bleeds or masses. No abnormal intracranial enhancement. There is cerebral volume loss for age. There is periventricular white matter chronic small vessel ischemic change. The brainstem appears normal. Diffusion-weighted images demonstrate no acute ischemic insults. No chronic ischemic insults. Normal intravascular flow voids are present. Skull and face: Calvarial marrow is normal in signal. Orbits appear normal. Note is made of bilateral lens replacements. Sinuses: Sinuses and mastoids appear clear. IMPRESSION: No findings of acute or subacute infarction can be seen. Note is made of age-appropriate brain parenchymal volume loss and chronic small vessel ischemic changes. No masses or abnormal enhancement can be seen. Dictated by: Jayjay Belle M.D. on 11/16/2018 at 16:07 Approved by: Jayjay Belle M.D. on 11/16/2018 at 16:09
[2018-11-16 15:13] LABS: Add Manual Diff / Slide Review NO; Basophils Absolute Auto 100 /uL (0-100); Eosinophils Absolute Auto 400 /uL (0-450); Eosinophils Percent Auto 5.5 % (2-4); Hemoglobin 13.1 g/dL (12.0-16.0); Lymphocytes Absolute Auto 2100 /uL (1100-4500); Lymphocytes Percent Auto 31.6 % (25-40); Mean Corpuscular HGB Conc 33.6 % (30-36); Mean Corpuscular Hemoglobin 30.5 PG (26-34); Mean Corpuscular Volume 90.7 fL (80-100); Monocytes Absolute Auto 600 /uL (0-900); Monocytes Percent Auto 9.2 % (3-14); Neutrophils Absolute Auto 3500 /uL (1500-7000); Neutrophils Percent Auto 52.7 % (50-75); Platelet Count 201 X10^3/uL (150-400); Red Cell Distribution Width 14.2 % (11.6-14.8); White Blood Cell Count 6.6 X10^3/uL (4.5-11.0)
[2018-11-16 15:37] LABS: Erythrocyte Sedimentation Rate 15 MM/HR (0-20)
== END ==
PROVIDERS: PCP Physician Assistant; Visit Provider Physician Assistant
DX: H53.122 Transient visual loss, left eye (principal); R42 Dizziness and giddiness; R51 Headache; Z86.73 Personal history of transient ischemic attack (TIA), and cerebral infarction without residual deficits; Z80.3 Family history of malignant neoplasm of breast
CPT/HCPCS: 36415; 70553; 77063; 77067; 85025; 85651; 93880; A9579

== ENCOUNTER 2019-01-17 20:50 | Emergency (ER) | payer MEDICARE, OTHER, SELFPAY ==
[2018-03-21 10:08] VITALS: BMI 23.8
[2019-01-17 20:57] VITALS: TEMP 37.3
--- NOTE | 2019-01-17 21:08 | DI.RAD.S_ITS ---
PROCEDURE: XR CHEST 1V INDICATIONS: weakness, fever TECHNIQUE: One view of the chest was acquired. COMPARISON: [facility], CR, XR CHEST 2V, 03/21/2018, 12:43. FINDINGS: Surgical changes and devices: Partially visualized cervical spinal fixation hardware. Sternotomy wires and cardiac valvular prosthesis. Lungs and pleura: Scattered atelectasis and scarring. No interval change. No new consolidation. No pleural effusions or pneumothorax. High-density granuloma projecting in the left midlung as before. Mediastinum: Mediastinal contours appear normal. Heart size is normal. Bones and chest wall: No suspicious bony lesions. Overlying soft tissues appear unremarkable. Chronic deformities of the left ribs as before. IMPRESSION: No acute disease or interval change. Dictated by: Haroldo Barton M.D. on 01/17/2019 at 21:59 Approved by: Haroldo Barton M.D. on 01/17/2019 at 22:00
[2019-01-17 21:12] VITALS: BP 152/67; PULSE 102; RESP 23; TEMP 37.6; O2SAT 95; BMI 24.8
[2019-01-17 21:16] LABS: Add Manual Diff / Slide Review NO; Basophils Absolute Auto 0 /uL (0-100); Basophils Percent Auto 0.2 % (0-2); Eosinophils Absolute Auto 0 /uL (0-450); Hematocrit 37.2 % (36-46); Hemoglobin 12.6 g/dL (12.0-16.0); Lymphocytes Absolute Auto 1000 /uL (1100-4500); Lymphocytes Percent Auto 7.6 % (25-40); Mean Corpuscular HGB Conc 33.7 % (30-36); Mean Corpuscular Hemoglobin 29.9 PG (26-34); Mean Corpuscular Volume 88.5 fL (80-100); Monocytes Absolute Auto 1100 /uL (0-900); Monocytes Percent Auto 8.6 % (3-14); Neutrophils Absolute Auto 10900 /uL (1500-7000); Neutrophils Percent Auto 83.6 % (50-75); Platelet Count 188 X10^3/uL (150-400); Red Blood Cell Count 4.21 X10^6/uL (4.0-5.2); Red Cell Distribution Width 14.1 % (11.6-14.8); White Blood Cell Count 13.1 X10^3/uL (4.5-11.0)
[2019-01-17] MEDS: SODIUM CHLORIDE 0.9% 1,000 ML 1000 ML IV (21:17)
[2019-01-17 21:30] LABS: Alanine Aminotransferase 16 IU/L (9-52); Albumin 4.1 g/dL (3.5-5.0); Albumin Globulin Ratio 1.4 (1.0-2.8); Alkaline Phosphatase 115 U/L (38-126); Aspartate Aminotransferase 29 IU/L (14-36); BUN Creatinine Ratio 36.7 (6-22); Bilirubin Total 1.1 mg/dL (0.2-1.3); Blood Urea Nitrogen 22 mg/dL (7-17); Calcium 9.6 mg/dL (8.4-10.2); Carbon Dioxide 28 mmol/L (22-32); Chloride 94 mmol/L (98-107); Creatine Kinase 27 U/L (30-135); Estimated Glomerular Filt Rate > 60.0 mL/min (>60); Glucose 107 mg/dL (80-110); HEMOLYSIS < 15 (0-50); Potassium 3.8 mmol/L (3.4-5.1); Sodium 134 mmol/L (137-145); Total Protein 7.1 g/dL (6.3-8.2)
[2019-01-17 21:31] VITALS: BP 159/75; PULSE 96; RESP 15; O2SAT 100
[2019-01-17 21:42] LABS: Troponin I < 0.012 ng/mL (0.01-0.034)
[2019-01-17 21:55] LABS: Procalcitonin 0.45 ng/mL (<0.5)
--- NOTE | 2019-01-17 22:11 | DI.CT.S_ITS ---
PROCEDURE: CT ABDOMEN PELVIS WO CON INDICATIONS: severe abdominal pain, weak TECHNIQUE: Noncontrast 5 mm thick sections acquired from the diaphragms to the symphysis. 5 mm coronal and sagittal reformats were then performed. For radiation dose reduction, the following was used: automated exposure control, adjustment of mA and/or kV according to patient size. IV contrast was not administered due to prior reported anaphylactic reaction. COMPARISON: PET/CT 07/20/2018. Chest CT 01/10/2018. FINDINGS: Image quality: Excellent. ABDOMEN: Lung bases: Dependent right lung base consolidative opacity with air bronchograms and probable trace pleural effusion. Small calcified granuloma at the right lung base. Left lung bases clear. Heart size is within normal limits. Solid organs: Liver is normal in size. Scattered calcified granuloma. Gallbladder is surgically absent. Pancreas is normal in contours. Spleen is normal in size. Left adrenal nodule measuring approximately 1.9 x 1.6 cm, (2/18) and less than 10 Hounsfield units consistent with a benign adenoma and unchanged. Trace right adrenal thickening. Kidneys are normal in size, without hydronephrosis. Right kidney inferior pole three nonobstructing stones measuring approximately 3 mm. Peritoneum and bowel: There is mild fat stranding in the right lower quadrant which appears to be associated with a loop of distal ileum. The appendix is not identified. Trace fluid in the right paracolic gutter. No loculated fluid collection. There is no small bowel obstruction. Mild sigmoid colon diverticulosis. No pneumoperitoneum. Nodes and vessels: No retroperitoneal or mesenteric adenopathy by size criteria. Infrarenal abdominal aorta is ectatic measuring 2.9 cm, (4/27). Extensive calcified atherosclerotic plaque. Miscellaneous: Tiny fat-containing periumbilical hernia. Trace calcification and ventral abdominal wall which may be due to prior surgery. PELVIS: Genitourinary: Bladder wall thickness is normal. Uterus is absent. Miscellaneous: No inguinal hernias or adenopathy. Bones: No suspicious bony lesions. No vertebral body compression fractures. Multilevel degenerative change. IMPRESSION: 1. Mild inflammatory change in the right lower quadrant which appears to be associated with the distal ileum and may be due to ileitis. The appendix is not identified. 2. Right lower lobe consolidation. Differential includes pneumonia, aspiration, or atelectasis. 3. Right nonobstructing kidney stones. This report is concordant with the overnight preliminary interpretation. RLL consolidation is moved to impression. Comparisons with prior exams was also preformed. Comment: Findings were discussed with Bessy Eubanks MD at the time of dictation. Emphasis was placed on the right lower lobe consolidation. Dictated by: Jaiden Muhammad M.D. on 01/18/2019 at 8:09 Approved by: Jaiden Muhammad M.D. on 01/18/2019 at 8:38
--- NOTE | 2019-01-17 22:27 | ED.WEAKNESS ---
HPI - Weakness General Chief complaint: Weakness Stated complaint: Multiple Complaints Time Seen by Provider: 01/17/19 20:52 Source: patient and EMS Mode of arrival: EMS Limitations: no limitations History of Present Illness HPI Narrative: 78-year-old female former smoker with COPD, non-Hodgkin's lymphoma presents by EMS for evaluation of generalized weakness over the past week. She states she has had nothing but liquidy stool over that time frame. She has had some dry hacking cough but has not produced any sputum. She denies any fever or chills. She has had some vague wandering discomfort in her abdomen, sometimes on her right side, sometimes on her left. Her stools are frequently following and the ingestion of any oral hydration or food. She denies recent antibiotics, exposure to bad food or ill persons. She has not traveled internationally. She denies any blood in her stool. MD Complaint: generalized weakness Onset (ago): day(s) Duration: constant Location: generalized Relieving factors: none Exacerbating factors: movement Context: recent illness Related Data Home Medications Medication Instructions Recorded Confirmed cholecalciferol (vitamin D3) 1,000 unit PO QDAY #0 07/29/12 11/02/18 [Vitamin D3] multivitamin [Multiple Vitamins] 1 tab PO QDAY #0 01/01/17 11/02/18 PreserVision AREDS 1 tab PO BID 10/29/17 11/02/18 melatonin 10 mg PO BEDTIME 10/29/17 11/02/18 polyethylene glycol 3350 17 gm PO DAILY 10/29/17 11/02/18 cyclosporine 0.05 % eye drops in a 1 drop EYE-BOTH BID each 05/04/18 11/02/18 dropperette Previous Rx's Medication Instructions Recorded gabapentin 300 mg capsule 300 - 600 mg PO TID #360 cap 04/13/18 Disabled Parking Placard #1 ea 05/04/18 varicella-zoster [id number] (PF) 50 50 mcg IM ONCE #1 each 05/04/18 mcg/0.5 mL IM susp, kit levothyroxine 75 mcg tablet 75 mcg PO DAILY #90 tab 05/09/18 metoprolol tartrate 25 mg tablet 12.5 mg PO BID #90 tab 06/03/18 rosuvastatin 20 mg tablet 20 mg PO BEDTIME #90 tab 06/03/18 mirtazapine 7.5 mg tablet See Rx Instructions PO BEDTIME 11/28/18 #180 tab Allergies Allergy/AdvReac Type Severity Reaction Status Date / Time ampicillin [AMPICILLIN] Allergy Severe BLOODY Verified 11/02/18 15:15 DIARRHEA Iodinated Contrast Media Allergy Severe ANAPHYLAXIS Verified 11/02/18 15:15 [IODINATED CONTRAST MEDIA - IV DYE] oxycodone [OXYCODONE] Allergy Intermediate MAKES ME Verified 11/02/18 15:15 MEAN, CHANGE OF PERSONALITY adhesive [ADHESIVE] AdvReac Mild REDNESS Verified 11/02/18 15:15 Review of Systems Constitutional Constitutional: Denies chills, Reports fatigue, Denies fever(s), Denies frequent falls, Denies lethargy and Reports weakness Eyes Eyes: Denies change in vision, Denies eye discharge, Denies irritation and Denies loss of vision ENT Ears, Nose, Mouth, and Throat: Denies change in voice, Denies dizziness, Denies neck pain, Denies sore throat and Denies throat swelling Cardiovascular Cardiovascular: Denies chest pain, Denies irregular heart rhythm, Denies lightheadedness, Denies palpitations, Denies dyspnea, Denies dyspnea on exertion and Denies orthopnea Respiratory Respiratory: Reports cough, Denies dyspnea, Denies dyspnea on exertion and Denies wheezing Gastrointestinal Gastrointestinal: Denies abdominal pain, Denies change in bowel habits, Reports diarrhea, Denies nausea and Denies vomiting Genitourinary Genitourinary: Denies hematuria, Denies flank pain, Denies urinary incontinence and Denies urinary urgency Musculoskeletal Musculoskeletal: Denies back pain, Denies muscle weakness, Denies neck pain, Denies numbness and Denies tingling Integumentary/Breasts Skin/Breast: Denies pruritus, Denies erythema, Denies rash and Denies wounds Neurologic Neurologic: Denies behavioral changes, Denies confusion, Denies dizziness, Denies frequent falls, Denies loss of vision, Denies numbness, Denies tingling and Reports weakness Psychiatric Psychiatric: Denies anxiety, Denies behavioral changes, Denies confusion, Denies depression, Denies homicidal ideation and Denies suicidal ideation Endocrine Endocrine: Reports fatigue, Denies flushing and Denies palpitations Hematologic/Lymphatic Hematologic/Lymphatic: Denies easy bruising Allergic/Immunologic Allergic/Immunologic: Denies urticaria, Denies throat swelling and Denies wheezing 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) GERD (gastroesophageal reflux disease) (Chronic) History of aortic valve replacement with bioprosthetic valve (Inactive 10/23/10) Hyperlipidemia (Acute) Hypertension (Acute) Hypothyroidism (Acute) Macular degeneration (Acute) Mitral valve disorder (Chronic) Non Hodgkin's lymphoma (Inactive) Osteoarthritis (Chronic 07/23/10) Osteoporosis (Chronic ~2015) Peripheral neuropathy (Chronic) Pulmonary embolism (Resolved) Raynaud's disease (Chronic 05/17/12) Retinal artery occlusion (Acute) Surgical History History of cataract removal with insertion of prosthetic lens History of lumpectomy of left breast (Resolved) History of lung surgery (Resolved 1993) Hx of aortic valve replacement (Resolved 07/2013) Hx of fusion of cervical spine (Resolved ~03/2004) Hx of hysterectomy (Resolved ~04/1987) Status post cholecystectomy Family History Mother Cancer Social History household members: none Smoking Status: Former smoker Tobacco: How many years used: 50 second hand exposure: Yes alcohol intake: current (jaky cream or a glass of wine once or twice a month.) substance use type: does not use alcohol intake frequency: 0-2 drinks per day Substance Use Type: does not use Exam Narrative Exam Narrative: GENERAL: [78] year old patient appears stated age. Well-nourished, well-developed patient, in mild distress. Chronically ill but in no active significant distress, no respiratory distress HEAD: Atraumatic. Normocephalic. EYES: Pupils equal round and reactive. Extraocular motions intact. No scleral icterus. No injection or drainage. ENT: Minimally dry mucous membranes Nose without bleeding, purulent drainage. Throat without erythema, tonsillar hypertrophy or exudate. Airway patent. NECK: Trachea midline. Non tender CARDIOVASCULAR: Regular rate and rhythm without murmurs, gallops, or rubs. RESPIRATORY: Decreased breath sounds bilaterally with prolonged expiratory phase. No rales or rhonchi GASTROINTESTINAL: Abdomen soft, non-tender, nondistended. Increased bowel sounds EXTREMITIES: No edema or joint tenderness. BACK: Nontender without deformity or crepitance. No flank tenderness. NEURO: AOx3. SKIN: Decreased turgor No rash or erythema of visible areas Initial Vital Signs Initial Vital Signs: Vital Signs Temperature 99.2 F 01/17/19 20:57 Course Orders Ordered: ED Orders 01/17/19 20:58 EKG-12 Lead Stat 01/17/19 21:00 Complete Blood Count AUTO DIFF Stat Comprehensive Metabolic Panel Stat Lactate (Lactic Acid) Stat Procalcitonin Stat Troponin & CK Cardiac Panel Stat 01/17/19 21:05 Influenza A and B by PCR Rapid Stat 01/17/19 21:08 XR chest 1V Stat 01/17/19 21:26 Blood Culture Stat 01/17/19 22:11 CT abdomen pelvis wo con Stat 01/17/19 22:56 Urine Microscopic Stat Discontinued Medications Diphenhydramine HCl (Benadryl) 25 mg IV NOW ONE Stop: 01/17/19 22:56 Last Admin: 01/17/19 23:14 Dose: Not Given Documented by: MMCFARL Sodium Chloride (Normal Saline 0.9%) 1,000 mls @ 1,000 mls/hr IV BOLUS ONE Stop: 01/17/19 22:16 Last Infusion: 01/17/19 22:19 Dose: 1,000 mls/hr Documented by: Admin: 01/17/19 21:17 Dose: 1,000 mls/hr Documented by: MMCFARL Famotidine (Pepcid) 20 mg in 50 mls @ 200 mls/hr IV NOW ONE Stop: 01/17/19 23:09 Last Admin: 01/17/19 23:13 Dose: Not Given Documented by: MMCFARL Methylprednisolone (Solu-Medrol 125 Mg Vial) 125 mg IV NOW ONE Stop: 01/17/19 22:56 Last Admin: 01/17/19 23:14 Dose: Not Given Documented by: MMCFARL Vital Signs Vital signs: Vital Signs - 8 hr 01/17/19 20:57 01/17/19 21:12 01/17/19 21:31 Temperature 99.2 F 99.7 F H Pulse Rate 102 H 96 H Pulse Rate [Orthostatic Lying] Pulse Rate [Orthostatic Sitting] Pulse Rate [Orthostatic Standing] Respiratory Rate 23 15 Blood Pressure 152/67 H Blood Pressure [Left Arm] 159/75 H Blood Pressure [Orthostatic Lying] Blood Pressure [Orthostatic Sitting] Blood Pressure [Orthostatic Standing] Pulse Oximetry 95 100 01/17/19 22:31 01/18/19 00:42 Temperature Pulse Rate 95 H Pulse Rate [Orthostatic Lying] 93 H Pulse Rate [Orthostatic Sitting] 98 H Pulse Rate [Orthostatic Standing] 100 H Respiratory Rate 24 Blood Pressure Blood Pressure [Left Arm] 162/83 H Blood Pressure [Orthostatic Lying] 150/76 H Blood Pressure [Orthostatic Sitting] 135/73 Blood Pressure [Orthostatic Standing] 142/71 H Pulse Oximetry 100 MDM - Weakness Lab Data Result diagrams: 01/17/19 21:00 01/17/19 21:00 Labs: Lab Results 01/17/19 01/17/19 01/17/19 Range/Units 21:00 21:00 21:00 WBC 13.1 H (4.5-11.0) X10^3/uL RBC 4.21 (4.0-5.2) X10^6/uL Hgb 12.6 (12.0-16.0) g/dL Hct 37.2 (36-46) % MCV 88.5 (80-100) fL MCH 29.9 (26-34) PG MCHC 33.7 (30-36) % RDW 14.1 (11.6-14.8) % Plt Count 188 (150-400) X10^3/uL Neut % (Auto) 83.6 H (50-75) % Lymph % (Auto) 7.6 L (25-40) % [place] % (Auto) 8.6 (3-14) % Eos % (Auto) 0.0 L (2-4) % Baso % (Auto) 0.2 (0-2) % Neut # (Auto) 47891 H (9464-2369) /uL Lymph # (Auto) 1000 L (7568-7666) /uL [place] # (Auto) 1100 H (0-900) /uL Eos # (Auto) 0 (0-450) /uL Baso # (Auto) 0 (0-100) /uL Sodium 134 L (137-145) mmol/L Potassium 3.8 (3.4-5.1) mmol/L Chloride 94 L (98-107) mmol/L Carbon Dioxide 28 (22-32) mmol/L BUN 22 H (7-17) mg/dL Creatinine 0.60 (0.52-1.04) mg/dL Estimated GFR > 60.0 (>60) mL/min BUN/Creatinine Ratio 36.7 H (6-22) Glucose 107 (80-110) mg/dL Lactate (0.7-2.1) mmol/L Calcium 9.6 (8.4-10.2) mg/dL Total Bilirubin 1.1 (0.2-1.3) mg/dL AST 29 (14-36) IU/L ALT 16 (9-52) IU/L Alkaline Phosphatase 115 (38-126) U/L Total Creatine Kinase 27 L (30-135) U/L CK-MB (CK-2) TNP CK-MB (CK-2) Rel Index TNP Troponin I < 0.012 (0.01-0.034) ng/mL Total Protein 7.1 (6.3-8.2) g/dL Albumin 4.1 (3.5-5.0) g/dL Globulin 3.0 (1.7-4.1) g/dL Albumin/Globulin Ratio 1.4 (1.0-2.8) Procalcitonin 0.45 (<0.5) ng/mL Urine RBC (0-5/HPF) Urine WBC (0-5/HPF) Urine Bacteria (None) Hyaline Casts (None) Urine Mucus (Negative) Ur Culture Indicated? Influenza A & B (PCR) (Negative) 01/17/19 01/17/19 01/17/19 Range/Units 21:00 21:05 22:56 WBC (4.5-11.0) X10^3/uL RBC (4.0-5.2) X10^6/uL Hgb (12.0-16.0) g/dL Hct (36-46) % MCV (80-100) fL MCH (26-34) PG MCHC (30-36) % RDW (11.6-14.8) % Plt Count (150-400) X10^3/uL Neut % (Auto) (50-75) % Lymph % (Auto) (25-40) % [place] % (Auto) (3-14) % Eos % (Auto) (2-4) % Baso % (Auto) (0-2) % Neut # (Auto) (9049-8012) /uL Lymph # (Auto) (4189-2273) /uL [place] # (Auto) (0-900) /uL Eos # (Auto) (0-450) /uL Baso # (Auto) (0-100) /uL Sodium (137-145) mmol/L Potassium (3.4-5.1) mmol/L Chloride (98-107) mmol/L Carbon Dioxide (22-32) mmol/L BUN (7-17) mg/dL Creatinine (0.52-1.04) mg/dL Estimated GFR (>60) mL/min BUN/Creatinine Ratio (6-22) Glucose (80-110) mg/dL Lactate 1.0 (0.7-2.1) mmol/L Calcium (8.4-10.2) mg/dL Total Bilirubin (0.2-1.3) mg/dL AST (14-36) IU/L ALT (9-52) IU/L Alkaline Phosphatase (38-126) U/L Total Creatine Kinase (30-135) U/L CK-MB (CK-2) CK-MB (CK-2) Rel Index Troponin I (0.01-0.034) ng/mL Total Protein (6.3-8.2) g/dL Albumin (3.5-5.0) g/dL Globulin (1.7-4.1) g/dL Albumin/Globulin Ratio (1.0-2.8) Procalcitonin (<0.5) ng/mL Urine RBC 0-1/hpf D (0-5/HPF) Urine WBC 0-1/hpf (0-5/HPF) Urine Bacteria Occasional (0-1) (None) Hyaline Casts 1-5/lpf (None) Urine Mucus 2+ H (Negative) Ur Culture Indicated? Cult not indicated Influenza A & B (PCR) Negative (Negative) Urine Dip Bedside Urine Glucose Negative Bedside Urine Bilirubin - Negative Bedside Urine Ketone +++ 80 Urine Specific [place] 1.025 Bedside Urine Occult Blood + Bedside Urine pH 6.0 Bedside Urine Protein + 30 Bedside Urine Urobilinogen - Negative Bedside Urine Nitrite - Negative Bedside Urine Leukocytes - Negative Esterase Imaging Data Chest x-ray: Radiologist's impression: [address] [id number] XRay Report Signed Patient: Fabien Xiong RMR#: [id number] : 3Acct:[id number] Age/Sex: 78 / FDate of Service: 01/17/19 Loc: ED Accession Number: [id number] Procedure: XR chest 1V Ordering Provider: Tae Morgan D.O. PROCEDURE: XR CHEST 1V INDICATIONS: weakness, fever TECHNIQUE: One view of the chest was acquired. COMPARISON: [facility], , XR CHEST 2V, 03/21/2018, 12:43. FINDINGS: Surgical changes and devices: Partially visualized cervical spinal fixation hardware. Sternotomy wires and cardiac valvular prosthesis. Lungs and pleura: Scattered atelectasis and scarring. No interval change. No new consolidation. No pleural effusions or pneumothorax. High-density granuloma projecting in the left midlung as before. Mediastinum: Mediastinal contours appear normal. Heart size is normal. Bones and chest wall: No suspicious bony lesions. Overlying soft tissues appear unremarkable. Chronic deformities of the left ribs as before. IMPRESSION: No acute disease or interval change. Dictated by: Haroldo Barton M.D. on 01/17/2019 at 21:59 Approved by: Haroldo Barton M.D. on 01/17/2019 at 22:00 [facility] Narrative Medical decision making narrative: 78-year-old female with a week of diarrhea as no bowel movements here, stable vital signs and improved symptoms after fluids. Imaging demonstrates no significant intra-abdominal pathology, urine is unremarkable for infection and chest x-ray is clear. She does well with orthostatics and not only has stable numbers but is asymptomatic. She feels quite well and is requesting discharge. She has a very reassuring exam and diagnostics including labs and imaging. She has improved symptoms and stable vital signs after fluids. Patient is pleased with this information, and though family seems less content they seem to have had their questions answered to their apparent satisfaction, understand and agree with the discharge plan. They have been given return precautions and demonstrate their understanding of these precautions by their ability to recite them back. Discharge Plan Departure Patient Disposition: Home Clinical Impression: Diarrhea with dehydration Instructions: Diarrhea, DI for Dehydration -- Adult Activity Restrictions/Additional Instructions: 1. Drink plenty of fluids with frequent small sips. 2. For the next 24 hours a clear liquid diet is advised. After that please employ a brat diet which would include bananas, rice, apples, toast. 3. Please take medications as directed. 4. Please follow-up with your doctor in the next 1-2 days. Call the office for an appointment. 5. Please return to the emergency Department for any worsening or persistent symptoms, such as increasing pain or fever. Prescriptions: No Action Restasis 0.05 % dropperette 1 drop EYE-BOTH BID RF: 0 (DME) Disabled Parking Placard Qty: 1 RF: 0 Shingrix (PF) 50 mcg/0.5 mL suspension for reconstitution 50 mcg IM ONCE Qty: 1 RF: 1 cholecalciferol (vitamin D3) [Vitamin D3] 1,000 unit Capsule 1,000 unit PO QDAY Qty: 0 RF: 0 multivitamin [Multiple Vitamins] 1 EACH tablet 1 tab PO QDAY Qty: 0 RF: 0 gabapentin [Neurontin] 300 mg capsule 300 - 600 mg PO TID Qty: 360 RF: 4 levothyroxine 75 mcg tablet 75 mcg PO DAILY Qty: 90 RF: 3 metoprolol tartrate 25 mg tablet 12.5 mg PO BID Qty: 90 RF: 3 rosuvastatin 20 mg tablet 20 mg PO BEDTIME Qty: 90 RF: 3 mirtazapine 7.5 mg tablet See Rx Instructions PO BEDTIME Qty: 180 RF: 3 PreserVision AREDS 1 tab PO BID RF: 0 polyethylene glycol 3350 527 GM powder 17 gm PO DAILY RF: 0 melatonin 10 mg Tablet 10 mg PO BEDTIME RF: 0 Referrals: Sofia Christie PA-C [Primary Care Provider] -
[2019-01-17 22:31] VITALS: BP 162/83; PULSE 95; RESP 24; O2SAT 100
[2019-01-17 22:48] LABS: Influenza A and B by PCR Rapid Negative (Negative)
--- NOTE | 2019-01-17 23:00 | PC.NURSE ---
Pt states generalized weakness for past week with frequent loose stool, intermittent abd pain and dry non productive cough. Pt denies pain at present and has hx of COPD and non-Hodgkin's lymphoma. Denies fever. Pt abdomen upon palp is soft, non tender and has active bowel sounds in all quadrants.
[2019-01-17 23:09] LABS: Bacteria Urine Occasional (0-1); Culture Indicated Urine Cult Not Indicated; Hyaline Casts Urine 1-5/LPF; Mucus Urine 2+ (Negative); RBC Urine 0-1/HPF (0-5/HPF); WBC Urine 0-1/HPF (0-5/HPF)
--- NOTE | 2019-01-17 23:10 | PC.NURSE ---
PT declined CT with contrast and medications of solumedrol, benadryl and ranitidine stating that she pre medicated previously with solumedrol and still had an anaphylactic reaction in the past. Dr Morgan in room speaking with pt.
[2019-01-18 00:42] VITALS: BP 135/73; BP 142/71; BP 150/76; PULSE 100; PULSE 93; PULSE 98
== END 2019-01-18 01:11 | disposition home or self-care (01) ==
PROVIDERS: Nurse Practitioner Family; Emergency Provider Emergency Medicine; Family Provider Physician Assistant; PCP Physician Assistant
DX: R19.7 Diarrhea, unspecified (principal); E86.0 Dehydration; R50.9 Fever, unspecified; R07.9 Chest pain, unspecified; R51 Headache
CPT/HCPCS: 36415; 71045; 74176; 80053; 81003; 81015; 82550; 83605; 84145; 84484; 85025; 87040; 87502; 93005; 93010; 96360; 99283; 99285; J1200; J2930

== ENCOUNTER 2019-01-20 12:28 | Emergency (ER) | payer MEDICARE, OTHER, SELFPAY ==
[2018-03-21 10:08] VITALS: BMI 23.8
[2019-01-20 12:32] VITALS: BP 117/67; PULSE 84; RESP 16; TEMP 36.3; O2SAT 94
--- NOTE | 2019-01-20 12:36 | DI.RAD.S_ITS ---
PROCEDURE: INDICATIONS: shortness of breath TECHNIQUE: One view of the chest was acquired. COMPARISON: [facility], CT, CT ABDOMEN PELVIS WO CON, 01/17/2019, 23:28. [facility], CR, XR CHEST 2V, 03/21/2018, 12:43. [facility], CR, XR CHEST 1V, 01/17/2019, 21:44. FINDINGS: Surgical changes and devices: Sternotomy and CABG. Lungs and pleura: Right lower lobe infiltrate consistent with pneumonia. Trace right effusion. Hyperinflation consistent with COPD. There is an old granuloma in the left upper lung zone. No pneumothorax. Mediastinum: Mediastinal contours appear normal. Heart size is normal. Bones and chest wall: No suspicious bony lesions. Overlying soft tissues appear unremarkable. Old left rib fractures are noted. IMPRESSION: 1. Right lower lobe pneumonia. 2. COPD. 3. Remote granulomatous disease. Dictated by: Raghav Castillo M.D. on 01/20/2019 at 13:03 Approved by: Raghav Castillo M.D. on 01/20/2019 at 13:05
[2019-01-20 13:28] LABS: Add Manual Diff / Slide Review NO; Basophils Absolute Auto 0 /uL (0-100); Basophils Percent Auto 0.7 % (0-2); Eosinophils Absolute Auto 200 /uL (0-450); Eosinophils Percent Auto 3.8 % (2-4); Hematocrit 33.2 % (36-46); Hemoglobin 11.3 g/dL (12.0-16.0); Lymphocytes Absolute Auto 1300 /uL (1100-4500); Lymphocytes Percent Auto 20.1 % (25-40); Mean Corpuscular HGB Conc 34.1 % (30-36); Mean Corpuscular Hemoglobin 29.8 PG (26-34); Mean Corpuscular Volume 87.4 fL (80-100); Monocytes Absolute Auto 800 /uL (0-900); Monocytes Percent Auto 11.9 % (3-14); Neutrophils Absolute Auto 4000 /uL (1500-7000); Neutrophils Percent Auto 63.5 % (50-75); Platelet Count 235 X10^3/uL (150-400); Red Cell Distribution Width 13.9 % (11.6-14.8); White Blood Cell Count 6.4 X10^3/uL (4.5-11.0)
--- NOTE | 2019-01-20 13:28 | ED_ITS ---
HPI - Weakness General Chief complaint: Weakness Stated complaint: states pneumonia Time Seen by Provider: 01/20/19 13:28 Source: patient Mode of arrival: Wheelchair Limitations: no limitations History of Present Illness HPI Narrative: 78-year-old female comes emergency department with complaint of weakness and trouble breathing. Patient states that she was seen for diarrhea on the . She states she was placed on Levaquin for pneumonia. She is on 500 mg daily. Patient states she has having any diarrhea any longer that has resolved. She notes that she has dyspnea on exertion, she has had some fevers at home she took some Tylenol this morning which helped. She has had cough which has been nonproductive but has been increasing. She does feel little short of breath with leg but particularly when she exerts herself or ambulates. Patient states that she was feeling nauseated before with her other symptoms but that has improved. Patient denies any swelling in her extremities. she quit smoking in 2018. She states she does use O2 at home at 2.5 L nasal cannula. She does not use inhalers but states she was prescribed some at some point but they were too expensive. Related Data Home Medications Medication Instructions Recorded Confirmed multivitamin [Multiple Vitamins] 1 tab PO DAILY #0 01/01/17 01/20/19 melatonin 10 mg PO BEDTIME 10/29/17 01/20/19 polyethylene glycol 3350 17 gm PO DAILY 10/29/17 01/20/19 vit C,K-La-hxxcz-lutein-zeaxan 1 tab PO BID #0 10/29/17 01/20/19 [PreserVision AREDS-2] cyclosporine 0.05 % eye drops in a 1 drop EYE-BOTH BID each 05/04/18 01/20/19 dropperette aspirin 81 mg PO DAILY 01/20/19 01/20/19 cholecalciferol (vitamin D3) 2,000 unit PO DAILY 01/20/19 01/20/19 [Vitamin D3] gabapentin [Neurontin] 300 mg PO QID 01/20/19 01/20/19 levofloxacin 500 mg tablet 500 mg PO DAILY 01/20/19 01/20/19 mirtazapine 7.5 - 15 mg PO BEDTIME 01/20/19 01/20/19 Previous Rx's Medication Instructions Recorded Disabled Parking Placard #1 ea 05/04/18 varicella-zoster [id number] (PF) 50 50 mcg IM ONCE #1 each 05/04/18 mcg/0.5 mL IM susp, kit levothyroxine 75 mcg tablet 75 mcg PO DAILY #90 tab 05/09/18 metoprolol tartrate 25 mg tablet 12.5 mg PO BID #90 tab 06/03/18 rosuvastatin 20 mg tablet 20 mg PO BEDTIME #90 tab 06/03/18 dexamethasone 4 mg PO DAILY #2 tab 01/20/19 Allergies Allergy/AdvReac Type Severity Reaction Status Date / Time ampicillin [AMPICILLIN] Allergy Severe BLOODY Verified 01/20/19 11:52 DIARRHEA Iodinated Contrast Media Allergy Severe ANAPHYLAXIS Verified 01/20/19 11:52 [IODINATED CONTRAST MEDIA - IV DYE] oxycodone [OXYCODONE] Allergy Intermediate MAKES ME Verified 01/20/19 11:52 MEAN, CHANGE OF PERSONALITY adhesive [ADHESIVE] AdvReac Mild REDNESS Verified 01/20/19 11:52 Review of Systems Review of Systems ROS Unobtainable: All systems reviewed & are unremarkable except as noted in HPI and below Constitutional Constitutional: Reports chills, Reports fever(s), Denies frequent falls, Denies lethargy and Reports weakness (generalized) ENT Ears, Nose, Mouth, and Throat: Denies nasal congestion Cardiovascular Cardiovascular: Denies chest pain, Denies syncope, Denies irregular heart rhythm, Denies lightheadedness, Denies palpitations, Reports dyspnea, Reports dyspnea on exertion and Denies orthopnea Respiratory Respiratory: Denies change in phlegm color, Reports chest congestion, Reports cough, Denies excessive phlegm production, Reports dyspnea, Reports dyspnea on exertion, Denies stridor and Denies wheezing Gastrointestinal Gastrointestinal: Denies abdominal pain, Denies melena, Denies hematochezia, Denies change in bowel habits, Denies diarrhea, Denies nausea and Denies vomiting Genitourinary Genitourinary: Denies hematuria, Denies urinary frequency, Denies dysuria, Denies flank pain, Denies urinary incontinence and Denies urinary urgency Neurologic Neurologic: Denies syncope, Denies frequent falls and Reports weakness (generalized) Endocrine Endocrine: Denies palpitations Allergic/Immunologic Allergic/Immunologic: Denies wheezing 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) GERD (gastroesophageal reflux disease) (Chronic) History of aortic valve replacement with bioprosthetic valve (Inactive 10/23/10) Hyperlipidemia (Acute) Hypertension (Acute) Hypothyroidism (Acute) Macular degeneration (Acute) Mitral valve disorder (Chronic) Non Hodgkin's lymphoma (Inactive) Osteoarthritis (Chronic 07/23/10) Osteoporosis (Chronic ~2015) Peripheral neuropathy (Chronic) Pulmonary embolism (Resolved) Raynaud's disease (Chronic 05/17/12) Retinal artery occlusion (Acute) Surgical History History of cataract removal with insertion of prosthetic lens History of lumpectomy of left breast (Resolved) History of lung surgery (Resolved 1993) Hx of aortic valve replacement (Resolved 07/2013) Hx of fusion of cervical spine (Resolved ~03/2004) Hx of hysterectomy (Resolved ~04/1987) Status post cholecystectomy Social History household members: none Smoking Status: Former smoker Tobacco: How many years used: 50 second hand exposure: Yes alcohol intake: current (jaky cream or a glass of wine once or twice a month.) substance use type: does not use alcohol intake frequency: holidays/special occasions only Substance Use Type: does not use Exam Narrative Exam Narrative: GEN: well nourished, well appearing elderly female, alert and oriented x 3, patient appears to be in mild distress. HEENT: Atraumatic, pupils are equal round reactive to light, extraocular movements are intact, nares are clear. Throat is clear without any exudates, erythema, tonsillar enlargement or uvular deviation HEART: Regular rate and rhythm without murmur, clicks, rubs. Pulses are equal in upper and lower extremities LUNGS:Lungs clear to auscultation although decreased bilaterally, no wheezes, rales, crackles, chest moves symmetrically, no tachypnea, no accessory muscle use. ABD:bowel sounds normal, soft, non-tender, no guarding, rebound, rigidity, no masses noted, no hepatosplenomegaly :No CVA tenderness MSCL: Non-tender, no muscle atrophy, muscles strength 5/5 upper and lower extremities, full range of motion, normal gait NEURO:CN 2-12 intact, sensation normal SKIN: no rash, no petechiae. Initial Vital Signs Initial Vital Signs: Vital Signs Temperature 97.4 F L 01/20/19 12:32 Pulse Rate 84 01/20/19 12:32 Respiratory Rate 16 01/20/19 12:32 Blood Pressure 117/67 01/20/19 12:32 Pulse Oximetry 94 01/20/19 12:32 Course Orders Ordered: ED Orders 01/20/19 12:36 XR chest 1V Stat 01/20/19 12:49 EKG-12 Lead Stat 01/20/19 13:10 Complete Blood Count AUTO DIFF Stat Comprehensive Metabolic Panel Stat Lactate (Lactic Acid) Stat Discontinued Medications Albuterol/Ipratropium (Duoneb) 3 ml INH NOW ONE Stop: 01/20/19 14:00 Last Admin: 01/20/19 14:02 Dose: 3 ml Documented by: ESTEVAN Methylprednisolone (Solu-Medrol 125 Mg Vial) 125 mg IV NOW ONE Stop: 01/20/19 13:57 Last Admin: 01/20/19 14:05 Dose: 125 mg Documented by: KENYA Vital Signs Vital signs: Vital Signs - 8 hr 01/20/19 12:32 01/20/19 14:09 01/20/19 14:57 Temperature 97.4 F L Pulse Rate 84 76 91 H Respiratory Rate 16 20 Blood Pressure 117/67 Pulse Oximetry 94 92 01/20/19 15:48 Temperature Pulse Rate 78 Respiratory Rate 18 Blood Pressure 120/68 Pulse Oximetry 94 MDM - Weakness Lab Data Attestation: I reviewed the patient's lab results. Result diagrams: 01/20/19 13:10 01/20/19 13:10 Labs: Lab Results 01/20/19 01/20/19 01/20/19 Range/Units 13:10 13:10 13:10 WBC 6.4 (4.5-11.0) X10^3/uL RBC 3.80 L (4.0-5.2) X10^6/uL Hgb 11.3 L (12.0-16.0) g/dL Hct 33.2 L (36-46) % MCV 87.4 (80-100) fL MCH 29.8 (26-34) PG MCHC 34.1 (30-36) % RDW 13.9 (11.6-14.8) % Plt Count 235 (150-400) X10^3/uL Neut % (Auto) 63.5 (50-75) % Lymph % (Auto) 20.1 L (25-40) % [place] % (Auto) 11.9 (3-14) % Eos % (Auto) 3.8 (2-4) % Baso % (Auto) 0.7 (0-2) % Neut # (Auto) 4000 (9998-9351) /uL Lymph # (Auto) 1300 (6266-3995) /uL [place] # (Auto) 800 (0-900) /uL Eos # (Auto) 200 (0-450) /uL Baso # (Auto) 0 (0-100) /uL Sodium 134 L (137-145) mmol/L Potassium 4.0 (3.4-5.1) mmol/L Chloride 95 L (98-107) mmol/L Carbon Dioxide 30 (22-32) mmol/L BUN 22 H (7-17) mg/dL Creatinine 0.40 L (0.52-1.04) mg/dL Estimated GFR > 60.0 (>60) mL/min BUN/Creatinine Ratio 55.0 H (6-22) Glucose 97 (80-110) mg/dL Lactate 1.2 (0.7-2.1) mmol/L Calcium 9.4 (8.4-10.2) mg/dL Total Bilirubin 0.5 (0.2-1.3) mg/dL AST 88 H (14-36) IU/L ALT 44 H (<35) IU/L Alkaline Phosphatase 105 (38-126) U/L Total Protein 6.6 (6.3-8.2) g/dL Albumin 3.7 (3.5-5.0) g/dL Globulin 2.9 (1.7-4.1) g/dL Albumin/Globulin Ratio 1.3 (1.0-2.8) Imaging Data Chest x-ray: Radiologist's impression: [address] [address] XRay Report Signed Patient: TyreseFabien RMR#: [id number] : 3Acct:[id number] Age/Sex: 78 / FDate of Service: 01/20/19 Loc: ED Accession Number: [id number] Procedure: XR chest 1V Ordering Provider: Joi Mitchell D.O. PROCEDURE: INDICATIONS: shortness of breath TECHNIQUE: One view of the chest was acquired. COMPARISON: [facility], CT, CT ABDOMEN PELVIS WO CON, 01/17/2019, 23:28. [facility], CR, XR CHEST 2V, 03/21/2018, 12:43. [facility], CR, XR CHEST 1V, 01/17/2019, 21:44. FINDINGS: Surgical changes and devices: Sternotomy and CABG. Lungs and pleura: Right lower lobe infiltrate consistent with pneumonia. Trace right effusion. Hyperinflation consistent with COPD. There is an old granuloma in the left upper lung zone. No pneumothorax. Mediastinum: Mediastinal contours appear normal. Heart size is normal. Bones and chest wall: No suspicious bony lesions. Overlying soft tissues appear unremarkable. Old left rib fractures are noted. IMPRESSION: 1. Right lower lobe pneumonia. 2. COPD. 3. Remote granulomatous disease. Dictated by: Raghav Castillo M.D. on 01/20/2019 at 13:03 Approved by: Raghav Castillo M.D. on 01/20/2019 at 13:05 ECG Data Attestation: I personally reviewed and interpreted this ECG as follows: Prior ECG tracings: available for review Interpretation: Sinus rhythm rate 85 P are 152 QRS of 75 and QTC of 393. Elevation appreciated. Q-wave in V1 V2 3. Patient has been appears to be artifact in V6. Patient has prior EKG from 01/17/19 that appears similar. MDM Narrative Medical decision making narrative: One 8 patient ambulates to the bathroom she dropped to 87% feels quite dyspneic. Tried 1 breathing treatment department, did a dose of IV Solu-Medrol as patient likely has some COPD exacerbation in conjunction with her pneumonia. She has been a long-time smoker. Patient did have some improvement with breathing treatment as well. discussed with patient we discussed hospitalization she is on the fence. I spoke with Dr. Desai defers observation but would be happy to accept the patient if she continues to fail with outpatient therapy. I did speak further with the patient and her daughter, she has oxygen and disposed to be on it 24 hours a day. She also has inhalers but does not use them as prescribed. Patient states she does have access to inhalers, she states she has plenty of oxygen at home and felt like she even has a portable tank. We discussed doing a short course of steroids. She bad reaction to prednisone and states it made her feel ?crazy?. She has not had dexamethasone before and we decided to try 2 doses of this. Discussed that she should stop if she is having any ?crazy symptoms or if it is making her feel manic. Patient feels very comfortable with this plan we also discussed she can return at any time for re-evaluation or if she feels like she is worsening. Discharge Plan Departure Patient Disposition: Home Clinical Impression: Pneumonia Discharge Date/Time: 01/20/19 15:51 Instructions: DI for Pneumonia -- Adult Activity Restrictions/Additional Instructions: Follow up with primary care in the next 2-3 days for recheck. Call for an appointment on Wednesday. Use your home O2 24 hours a day. Continue Levaquin until it is completely gone. Take steroid once daily until gone. Use your albuterol with spacer, 1 2 puffs every 4 hours as needed. You may return at any time, if you having fevers greater 100.4 F, worsening shortness of breath, new chest pain, passing out, worsening weakness, persistent vomiting or other new or concerning symptoms. Prescriptions: New dexamethasone 4 mg tablet 4 mg PO DAILY Qty: 2 RF: 0 No Action Restasis 0.05 % dropperette 1 drop EYE-BOTH BID RF: 0 (DME) Disabled Parking Placard Qty: 1 RF: 0 Shingrix (PF) 50 mcg/0.5 mL suspension for reconstitution 50 mcg IM ONCE Qty: 1 RF: 1 multivitamin [Multiple Vitamins] 1 EACH tablet 1 tab PO DAILY Qty: 0 RF: 0 levothyroxine 75 mcg tablet 75 mcg PO DAILY Qty: 90 RF: 3 metoprolol tartrate 25 mg tablet 12.5 mg PO BID Qty: 90 RF: 3 rosuvastatin 20 mg tablet 20 mg PO BEDTIME Qty: 90 RF: 3 levofloxacin 500 mg tablet 500 mg PO DAILY RF: 0 PreserVision AREDS-2 [id number] el-jajq-pj-mg Capsule 1 tab PO BID Qty: 0 RF: 0 polyethylene glycol 3350 527 GM powder 17 gm PO DAILY RF: 0 melatonin 10 mg Tablet 10 mg PO BEDTIME RF: 0 mirtazapine 7.5 mg tablet 7.5 - 15 mg PO BEDTIME RF: 0 aspirin 81 mg Tablet,Delayed Release (Dr/Ec) 81 mg PO DAILY RF: 0 cholecalciferol (vitamin D3) [Vitamin D3] 2,000 unit Capsule 2,000 unit PO DAILY RF: 0 gabapentin [Neurontin] 300 mg capsule 300 mg PO QID RF: 0 Referrals: Sofia Christie PA-C [Primary Care Provider] -
[2019-01-20 13:36] LABS: Lactate (Lactic Acid) 1.2 mmol/L (0.7-2.1)
[2019-01-20 13:37] LABS: Alanine Aminotransferase 44 IU/L (<35); Albumin 3.7 g/dL (3.5-5.0); Albumin Globulin Ratio 1.3 (1.0-2.8); Alkaline Phosphatase 105 U/L (38-126); Aspartate Aminotransferase 88 IU/L (14-36); Bilirubin Total 0.5 mg/dL (0.2-1.3); Blood Urea Nitrogen 22 mg/dL (7-17); Calcium 9.4 mg/dL (8.4-10.2); Carbon Dioxide 30 mmol/L (22-32); Chloride 95 mmol/L (98-107); Estimated Glomerular Filt Rate > 60.0 mL/min (>60); Globulin 2.9 g/dL (1.7-4.1); Glucose 97 mg/dL (80-110); HEMOLYSIS 31 (0-50); Sodium 134 mmol/L (137-145); Total Protein 6.6 g/dL (6.3-8.2)
--- NOTE | 2019-01-20 13:52 | PC.NURSE ---
Pt came in earlier last week with concerns of pneumonia, sent home with levaquin. was called today confirming pneumonia on re-examination of CXR. AAOx3. ambulatory. wearing mask. has been taking Levaquin for few days. wears home O2 at night but has been using it more frequently. smoker until 2018. noncompliant with RX inhalers. 88% on RA. placed on 2L O2 abd improving to 95%.
[2019-01-20] MEDS: ALBUTEROL/IPRATROPIUM 3 ML AMPUL INH (14:02)
[2019-01-20] MEDS: methylPREDNISolone 125 MG/2 ML VIAL IV (14:05)
[2019-01-20 14:09] VITALS: PULSE 76; RESP 20
[2019-01-20 14:57] VITALS: PULSE 91; O2SAT 92
[2019-01-20 15:48] VITALS: BP 120/68; PULSE 78; RESP 18; O2SAT 94
== END 2019-01-20 15:51 | disposition home or self-care (01) ==
PROVIDERS: Emergency Provider Emergency Medicine; Family Provider Physician Assistant; PCP Physician Assistant
DX: J18.9 Pneumonia, unspecified organism (principal); Z72.0 Tobacco use; R06.02 Shortness of breath
CPT/HCPCS: 36415; 71045; 80053; 83605; 85025; 93005; 94640; 96374; 99283; 99285; J2930

== ENCOUNTER → 2019-03-10 09:28 | Outpatient (CLI) | payer MEDICARE, OTHER, SELFPAY ==
[2018-03-21 10:08] VITALS: BMI 23.8
[2019-03-10 11:07] LABS: Add Manual Diff / Slide Review NO; Basophils Absolute Auto 100 /uL (0-100); Basophils Percent Auto 1.3 % (0-2); Eosinophils Absolute Auto 600 /uL (0-450); Eosinophils Percent Auto 11.3 % (2-4); Hemoglobin 11.9 g/dL (12.0-16.0); Lymphocytes Absolute Auto 1700 /uL (1100-4500); Lymphocytes Percent Auto 31.4 % (25-40); Mean Corpuscular HGB Conc 33.1 % (30-36); Mean Corpuscular Hemoglobin 28.5 PG (26-34); Mean Corpuscular Volume 86.1 fL (80-100); Monocytes Absolute Auto 600 /uL (0-900); Monocytes Percent Auto 10.4 % (3-14); Neutrophils Absolute Auto 2400 /uL (1500-7000); Neutrophils Percent Auto 45.6 % (50-75); Platelet Count 216 X10^3/uL (150-400); Red Blood Cell Count 4.17 X10^6/uL (4.0-5.2); Red Cell Distribution Width 14.8 % (11.6-14.8); White Blood Cell Count 5.4 X10^3/uL (4.5-11.0)
[2019-03-10 11:23] LABS: Alanine Aminotransferase 11 IU/L (<35); Albumin 4.1 g/dL (3.5-5.0); Albumin Globulin Ratio 1.5 (1.0-2.8); Alkaline Phosphatase 86 U/L (38-126); Aspartate Aminotransferase 26 IU/L (14-36); Bilirubin Total 0.5 mg/dL (0.2-1.3); Blood Urea Nitrogen 16 mg/dL (7-17); Calcium 9.5 mg/dL (8.4-10.2); Carbon Dioxide 31 mmol/L (22-32); Chloride 101 mmol/L (98-107); Estimated Glomerular Filt Rate > 60.0 mL/min (>60); Globulin 2.7 g/dL (1.7-4.1); Glucose 88 mg/dL (80-110); HEMOLYSIS < 15 (0-50); Lactate Dehydrogenase 484 U/L (313-618); Potassium 4.1 mmol/L (3.4-5.1); Sodium 139 mmol/L (137-145); Total Protein 6.8 g/dL (6.3-8.2)
[2019-03-10 11:27] LABS: Cholesterol 121 mg/dL (140-199); HDL Cholesterol 67 mg/dL (40-60); LDL Cholesterol Calculated 35 mg/dL (<100); Triglycerides 93 mg/dL (35-150)
[2019-03-10 11:38] LABS: LDL Cholesterol Direct 40 mg/dL (<100)
== END ==
PROVIDERS: Internal Medicine Hematology & Oncology; Family Provider Physician Assistant; PCP Physician Assistant; Visit Provider Internal Medicine
DX: G45.9 Transient cerebral ischemic attack, unspecified (principal); G45.3 Amaurosis fugax; C85.90 Non-Hodgkin lymphoma, unspecified, unspecified site
CPT/HCPCS: 36415; 80053; 80061; 83615; 83721; 85025

== ENCOUNTER → 2019-03-23 10:36 | Outpatient (CLI) | payer MEDICARE, OTHER, SELFPAY ==
[2018-03-21 10:08] VITALS: BMI 23.8
--- NOTE | 2019-03-23 10:40 | DI.CT.S_ITS ---
PROCEDURE: CT CHEST WO CON INDICATIONS: LYMPHOMA TECHNIQUE: Noncontrast 5 mm thick sections acquired from the pulmonary apices to the posterior costophrenic angles. 1 mm lung window, 5 mm thick coronal and sagittal and 7 mm axial MIP reformats were then acquired. For radiation dose reduction, the following was used: automated exposure control, adjustment of mA and/or kV according to patient size. COMPARISON: [facility], CR, XR CHEST 1V, 01/20/2019, 12:45. [facility], CR, XR CHEST 1V, 01/17/2019, 21:44. [facility], NM, NM PET CT FUSION SKULL 2 THIGH, 07/20/2018, 15:56. [facility], CT, CT CHEST WO CON, 01/10/2018, 12:48. FINDINGS: Image quality: Excellent. Lungs and pleura: There is a 1.6 cm round masslike density anterior to the spine in the azygoesophageal recess, which has increased in size (previously 1 cm on 07/20/2018). There are right apical and right lower lobes scars. There is a calcified granuloma in the posterior segment of the left upper lobe. Moderate to severe centrilobular emphysema. No acute air space opacities. No pleural effusions or pneumothorax. Central and peripheral airways are patent and normal in caliber. Mediastinum: Heart size is normal. No pericardial effusion. No mediastinal adenopathy. A prominent particular lymph node measures 8 mm, which is within normal limits by size criteria. Thoracic aorta and central pulmonary arteries are normal in size. There is severe atherosclerosis. Esophagus is normal in caliber. No hiatal hernia. Bones and chest wall: No suspicious bony lesions. No vertebral body compression fractures. No axillary or supraclavicular adenopathy by size criteria. Thyroid gland is normal. Abdomen: Visualized upper abdominal solid organs and bowel loops appear normal in the absence of contrast. IMPRESSION: 1. A 1.6 cm round masslike density anterior to the spine in the azygoesophageal recess, which has increased in size (previously 1 cm on 07/20/2018). This exam is, however, suboptimal for cancer evaluation because of the lack of IV contrast. Cannot rule out neoplasm. If clinically indicated, repeat PET/CT. 2. Right apical and right lower lobe scarring. 3. Severe osteoporosis. Dictated by: Raghav Castillo M.D. on 03/23/2019 at 13:02 Approved by: Raghav Castillo M.D. on 03/23/2019 at 18:45
== END ==
PROVIDERS: Family Provider Physician Assistant; PCP Physician Assistant; Visit Provider Internal Medicine Hematology & Oncology
DX: C85.90 Non-Hodgkin lymphoma, unspecified, unspecified site (principal); J98.4 Other disorders of lung; J43.2 Centrilobular emphysema; M81.0 Age-related osteoporosis without current pathological fracture
CPT/HCPCS: 71250

== ENCOUNTER 2019-04-18 16:53 | Emergency (ER) | payer MEDICARE, OTHER, SELFPAY ==
[2018-03-21 10:08] VITALS: BMI 23.8
[2019-04-18 16:56] VITALS: BP 144/70; PULSE 92; RESP 18; TEMP 36.7; O2SAT 93
[2019-04-18 17:30] VITALS: BP 139/59; PULSE 87; RESP 13; O2SAT 94
[2019-04-18 17:37] LABS: Add Manual Diff / Slide Review NO; Basophils Absolute Auto 100 /uL (0-100); Basophils Percent Auto 0.6 % (0-2); Eosinophils Absolute Auto 100 /uL (0-450); Hematocrit 34.3 % (36-46); Hemoglobin 11.5 g/dL (12.0-16.0); Lymphocytes Absolute Auto 800 /uL (1100-4500); Lymphocytes Percent Auto 9.3 % (25-40); Mean Corpuscular HGB Conc 33.5 % (30-36); Mean Corpuscular Hemoglobin 27.9 PG (26-34); Mean Corpuscular Volume 83.3 fL (80-100); Monocytes Absolute Auto 300 /uL (0-900); Neutrophils Absolute Auto 7400 /uL (1500-7000); Neutrophils Percent Auto 86.1 % (50-75); Platelet Count 232 X10^3/uL (150-400); Red Blood Cell Count 4.11 X10^6/uL (4.0-5.2); Red Cell Distribution Width 15.4 % (11.6-14.8); White Blood Cell Count 8.6 X10^3/uL (4.5-11.0)
[2019-04-18 17:42] LABS: Prothrombin Time 11.1 SECONDS (10.1-12.7)
[2019-04-18 17:45] LABS: PTT Partial Thromboplastin Tim 34 SECONDS (26.4-36.2)
[2019-04-18 17:47] LABS: Alanine Aminotransferase 14 IU/L (<35); Albumin 4.5 g/dL (3.5-5.0); Albumin Globulin Ratio 1.4 (1.0-2.8); Alkaline Phosphatase 96 U/L (38-126); Aspartate Aminotransferase 31 IU/L (14-36); Bilirubin Total 0.3 mg/dL (0.2-1.3); Blood Urea Nitrogen 18 mg/dL (7-17); Calcium 9.9 mg/dL (8.4-10.2); Carbon Dioxide 32 mmol/L (22-32); Chloride 97 mmol/L (98-107); Estimated Glomerular Filt Rate > 60.0 mL/min (>60); Globulin 3.2 g/dL (1.7-4.1); Glucose 119 mg/dL (80-110); HEMOLYSIS < 15 (0-50); Lipase 126 U/L (23-300); Potassium 4.4 mmol/L (3.4-5.1); Sodium 137 mmol/L (137-145); Total Protein 7.7 g/dL (6.3-8.2)
[2019-04-18 18:00] VITALS: BP 143/53; PULSE 88; RESP 14; O2SAT 95
--- NOTE | 2019-04-18 18:56 | DI.CT.S_ITS ---
PROCEDURE: CT ABDOMEN PELVIS WO CON INDICATIONS: severe abdominal pain and nausea. Hx appy, margi, hystrec TECHNIQUE: Noncontrast 5 mm thick sections acquired from the diaphragms to the symphysis. 5 mm coronal and sagittal reformats were then performed. For radiation dose reduction, the following was used: automated exposure control, adjustment of mA and/or kV according to patient size. COMPARISON: [facility], CT, CT ABDOMEN PELVIS WO CON, 01/17/2019, 23:28. FINDINGS: Image quality: Excellent. ABDOMEN: Lung bases: Persistent small left pleural effusion. Previously described consolidative opacity in the right lung base has substantially decreased in size. Heart size is normal. Solid organs: Liver is normal in size. Scattered calcified granulomas in the liver. Gallbladder is surgically absent. Pancreas is normal in contours. Spleen is normal in size. No right adrenal nodule. Stable 1.7 cm left adrenal nodule measuring less than 10 Hounsfield units. Kidneys are normal in size, without hydronephrosis. Stable 3 inferior right renal pole nonobstructing nephroliths measuring approximately 3 mm in size. Visualized course and caliber of the bilateral ureters appear normal. No ureteral stone. Peritoneum and bowel: Unenhanced bowel loops demonstrate normal wall thickness and caliber. Previously seen inflammatory stranding in the right lower quadrant has resolved. Mild sigmoid colonic diverticulosis without acute diverticulitis. No organized fluid collections. Trace amount of pelvic free fluid likely physiologic. No free air. Nodes and vessels: No retroperitoneal or mesenteric adenopathy by size criteria. Stable ectasia of the proximal abdominal aorta measuring up to 2.9 cm. Scattered atherosclerotic calcifications of the abdominal aorta and iliac vessels. Miscellaneous: No ventral hernias. Stable postsurgical changes in the ventral abdominal wall. PELVIS: Genitourinary: Bladder wall thickness is normal. Status post hysterectomy. Miscellaneous: No inguinal hernias or adenopathy. Bones: No suspicious bony lesions. No acute vertebral body compression fractures. Multilevel spondylitic changes throughout the imaged spine. Diffuse osteopenia. The IMPRESSION: 1. CT abdomen and pelvis without acute abnormalities. No evidence for bowel obstruction or acute inflammatory changes. 2. Substantial decrease in size of right lower lobe consolidation with persistent small right pleural effusion. Recommend followup imaging to document resolution. 3. Nonobstructing right nephroliths, unchanged. 4. Minimal sigmoid colonic diverticulosis without evidence for acute diverticulitis. Dictated by: Shahid Gutierrez M.D. on 04/18/2019 at 19:46 Approved by: Shahid Gutierrez M.D. on 04/18/2019 at 20:00
[2019-04-18 19:05] LABS: Bacteria Urine None Seen; RBC Urine None Seen (0-5/HPF)
[2019-04-18 19:11] LABS: Amorphous Sediment Urine 2+; Squamous Epithelial Cell Urine 0-1 /HPF (0-5/HPF); WBC Urine 0-1/HPF (0-5/HPF)
[2019-04-18 19:12] LABS: Culture Indicated Urine Cult Not Indicated
[2019-04-18 20:14] VITALS: BP 142/66; PULSE 84; RESP 18; O2SAT 95
[2019-04-18 20:18] LABS: Thyroid Stimulating Hormone 1.88 uIU/mL (0.47-4.68)
--- NOTE | 2019-04-19 02:12 | ED.ABDPAIN ---
HPI - Abdominal Pain <Joseph EDDIE Kunz - Last Filed: 04/19/19 02:50> General Chief Complaint: Abdominal Pain Stated Complaint: really bad stomach ache Time Seen by Provider: 04/18/19 18:03 Source: patient and family Mode of arrival: Ambulatory Limitations: no limitations History of Present Illness HPI narrative: This is a 78-year-old female, former smoker, who presents to ED with her son with chief complain of severe 10/10 abdominal pain which has decreased, distension, 3 loose stools in dark color. When she woke up this morning, she had some discomfort in her abdomen and thought she had hunger pain. She had at eggs, cheese and spinach for the breakfast since She has to be on high protein and low carbohydrate diet for scheduled past scanned tomorrow for a lung nodule. Shortly after then patient had severe discomfort in left upper and lower quadrant with abdominal distension. Pain was wax and waning but never resolved and could not find comfortable position. Patient did not see bright red rectal bleeding but her stool appeared dark in color. Patient states she does have hemorrhoids. Patient did felt lightheaded, chills, cold sweats with pain and nausea. Patient also had right flank pain. Patient does have chronic urinary incontinence and states Dribbles. Patient reports current discomfort is 3 to 4/10 at this time. Patient has surgical history of open her surgery, artificial aortic valve, appendectomy, total hystrectomy, chlolecystectomy. Related Data Home Medications Medication Instructions Recorded Confirmed multivitamin [Multiple Vitamins] 1 tab PO DAILY #0 01/01/17 03/30/19 melatonin 10 mg PO BEDTIME 10/29/17 04/18/19 polyethylene glycol 3350 17 gm PO DAILY 10/29/17 03/30/19 vit C,O-Tn-nsmmq-lutein-zeaxan 1 tab PO BID #0 10/29/17 03/30/19 [PreserVision AREDS-2] cyclosporine 0.05 % eye drops in a 1 drop EYE-BOTH BID each 05/04/18 03/30/19 dropperette aspirin 81 mg PO DAILY 01/20/19 04/18/19 cholecalciferol (vitamin D3) 2,000 unit PO DAILY 01/20/19 04/18/19 [Vitamin D3] gabapentin [Neurontin] 300 mg PO QID 01/20/19 03/30/19 mirtazapine 7.5 - 15 mg PO BEDTIME 01/20/19 04/18/19 clopidogrel 75 mg PO DAILY 04/18/19 04/18/19 Previous Rx's Medication Instructions Recorded Disabled Parking Placard #1 ea 05/04/18 varicella-zoster [id number] (PF) 50 50 mcg IM ONCE #1 each 05/04/18 mcg/0.5 mL IM susp, kit metoprolol tartrate 25 mg tablet 12.5 mg PO BID #90 tab 06/03/18 rosuvastatin 20 mg tablet 20 mg PO BEDTIME #90 tab 06/03/18 levothyroxine 75 mcg tablet 75 mcg PO DAILY #90 tab 04/17/19 Allergies Allergy/AdvReac Type Severity Reaction Status Date / Time ampicillin [AMPICILLIN] Allergy Severe BLOODY Verified 04/18/19 17:02 DIARRHEA Iodinated Contrast Media Allergy Severe ANAPHYLAXIS Verified 04/18/19 17:02 [IODINATED CONTRAST MEDIA - IV DYE] oxycodone [OXYCODONE] Allergy Intermediate MAKES ME Verified 04/18/19 17:02 MEAN, CHANGE OF PERSONALITY adhesive [ADHESIVE] AdvReac Mild REDNESS Verified 04/18/19 17:02 Review of Systems <EDDIE Soto - Last Filed: 04/19/19 02:50> Review of Systems Narrative: General: Denies fever, (+) chills, fatigue, malaise, (+) cold sweats. HEENT: Denies sinus pain, ear pain, sore throat, difficulty swallowing, dizziness. Respiratory: Denies dyspnea, cough, wheezing, hemoptysis, sputum. Cardiovascular: Denies chest pain, palpitations, orthopnea, edema. Gastrointestinal: See HPI : Denies dysuria, frequency, (+) incontinence, hematuria, urinary retention. Musculoskeletal: Denies weakness, joint pain or bony pain. Skin: Denies rash, skin lesions, or other. Neurologic: Denies weakness, headache, numbness, change in speech, confusion, seizures, incoordination. Psychiatric: No concerning psychosocial issues. 12-point review of systems is negative except for those stated above. 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) GERD (gastroesophageal reflux disease) (Chronic) History of aortic valve replacement with bioprosthetic valve (Inactive 10/23/10) Hyperlipidemia (Acute) Hypertension (Acute) Hypothyroidism (Acute) Macular degeneration (Acute) Mitral valve disorder (Chronic) Non Hodgkin's lymphoma (Inactive) Osteoarthritis (Chronic 07/23/10) Osteoporosis (Chronic ~2015) Peripheral neuropathy (Chronic) Pulmonary embolism (Resolved) Raynaud's disease (Chronic 05/17/12) Retinal artery occlusion (Acute) Surgical History H/O total hysterectomy (Acute) History of appendectomy (Acute) History of cataract removal with insertion of prosthetic lens History of cholecystectomy (Acute) History of lumpectomy of left breast (Resolved) History of lung surgery (Resolved 1993) Hx of aortic valve replacement (Resolved 07/2013) Hx of fusion of cervical spine (Resolved ~03/2004) Hx of hysterectomy (Resolved ~04/1987) Status post cholecystectomy Family History Mother Cancer Social History household members: none Smoking Status: Former smoker Tobacco: How many years used: 50 second hand exposure: Yes alcohol intake: current (jaky cream or a glass of wine once or twice a month.) substance use type: does not use Smoking Status: Former smoker alcohol intake frequency: holidays/special occasions only Substance Use Type: does not use Exam <EDDIE Soto - Last Filed: 04/19/19 02:50> Narrative Exam Narrative: GEN: Alert, oriented x 3, well appearing and nourished, and in no acute distress. Head: Normal cephalic, atraumatic. No scalp or temporal tenderness, palpable mass or rash. EYES: Pupils are equal, round, and reactive to light and accommodation. Extraocular muscles are intact bilaterally. There is no subconjunctival hemorrhage, exudate and sclera non-icteric. ENT: Bilateral auditory canals and tympanic membranes clear. Hearing grossly intact. Nose without bleeding, purulent discharge or deviation. Facial sinuses nontender to palpate. Mucous membrane moist, no mucosal lesion. Throat without erythema, tonsillar hypertrophy or exudate. Uvula in midline, airway patent. Neck: Trachea in midline. No JVD, non-tender without lymphadenopathy. No masses or thyroid megaly. Supple, non-tender and no meningeal signs. CARDIAC: Normal regular rate and rhythm without murmurs, gallops, or rubs. No chest wall tenderness. No peripheral edema, cyanosis or pallor. Capillary refill is less than 2 seconds. RESPIRATORY: Lungs are clear to auscultate bilaterally. No cough, wheezes, rales, or rhonchi. No stridor, respiratory distress, increase work of breathing, or accessary muscle used. ABD: Abdomen soft, mild TTP in Left quadrants and Right upper quadrant and non-distended. No guarding or rebound tenderness to palpate. Bowel sounds are normal in all 4 quadrants. There is no palpable masses or organomegaly. GUIAC stool test positive. Several External hemorroids w/o thrombosis. EXT: Full painless ROM of all extremities with no loss of sensation, strength, effusion or edema. SKIN: Warm, dry, normal color for patient. No erythema, lesions or rash over visible areas. BACK: Nontender without deformity or crepitance. No flank tenderness to percuss. NEUROLOGICAL: Alert and oriented to place, time and person. Sensation and motor function intact bilaterally. No facial droops, dysphasia. PSYCHIATRIC: Good judgement and reason, without hallucinations, abnormal affect or abnormal behaviors during the examination. Patient is not suicidal. Initial Vital Signs Initial Vital Signs: Vital Signs Temperature 98.1 F 04/18/19 16:56 Pulse Rate 92 H 04/18/19 16:56 Respiratory Rate 18 04/18/19 16:56 Blood Pressure 144/70 H 04/18/19 16:56 Pulse Oximetry 93 04/18/19 16:56 <Wayne Mercado MD - Last Filed: 04/19/19 21:32> Initial Vital Signs Initial Vital Signs: Vital Signs Temperature 98.1 F 04/18/19 16:56 Pulse Rate 92 H 04/18/19 16:56 Respiratory Rate 18 04/18/19 16:56 Blood Pressure 144/70 H 04/18/19 16:56 Pulse Oximetry 93 04/18/19 16:56 Scores <Joseph EDDIE Kuzn - Last Filed: 04/19/19 02:50> GCS Lisa coma scale eye opening: Spontaneous Lisa coma scale verbal response: Orientated Lisa coma scale motor response: Obey commands Lisa coma scale total score: 15 Course <EDDIE Soto - Last Filed: 04/19/19 02:50> Orders Ordered: Discontinued Medications Ondansetron HCl (Zofran) 4 mg IV NOW ONE Stop: 04/18/19 17:05 Last Admin: 04/18/19 21:05 Dose: Not Given Documented by: HYUN Vital Signs Vital signs: Vital Signs - 8 hr 04/18/19 20:14 Pulse Rate 84 Respiratory Rate 18 Blood Pressure [Right Arm] 142/66 H Pulse Oximetry 95 <Wayne Mercado MD - Last Filed: 04/19/19 21:32> Orders Ordered: Discontinued Medications Ondansetron HCl (Zofran) 4 mg IV NOW ONE Stop: 04/18/19 17:05 Last Admin: 04/18/19 21:05 Dose: Not Given Documented by: HYUN Vital Signs Vital signs: Vital Signs - 8 hr 04/18/19 20:14 Pulse Rate 84 Respiratory Rate 18 Blood Pressure [Right Arm] 142/66 H Pulse Oximetry 95 MDM - Abdominal Pain <Joseph EDDIE Kunz - Last Filed: 04/19/19 02:50> Differential Diagnosis Differential diagnosis: Likely calculus of kidney, diverticulitis, small bowel obstruction and other (GI bleed) Medical Records Attestation: I reviewed the patient's medical records. Lab Data Attestation: I reviewed the patient's lab results. Result diagrams: 04/18/19 17:08 04/18/19 17:08 Labs: Lab Results 04/18/19 04/18/19 04/18/19 Range/Units 17:08 17:08 17:08 WBC 8.6 (4.5-11.0) X10^3/uL RBC 4.11 (4.0-5.2) X10^6/uL Hgb 11.5 L (12.0-16.0) g/dL Hct 34.3 L (36-46) % MCV 83.3 (80-100) fL MCH 27.9 (26-34) PG MCHC 33.5 (30-36) % RDW 15.4 H (11.6-14.8) % Plt Count 232 (150-400) X10^3/uL Neut % (Auto) 86.1 H (50-75) % Lymph % (Auto) 9.3 L (25-40) % [place] % (Auto) 3.0 (3-14) % Eos % (Auto) 1.0 L (2-4) % Baso % (Auto) 0.6 (0-2) % Neut # (Auto) 7400 H (0097-6470) /uL Lymph # (Auto) 800 L (5684-2632) /uL [place] # (Auto) 300 (0-900) /uL Eos # (Auto) 100 (0-450) /uL Baso # (Auto) 100 (0-100) /uL PT 11.1 (10.1-12.7) SECONDS INR 1.0 (0.9-1.3) APTT 34 (26.4-36.2) SECONDS Sodium 137 (137-145) mmol/L Potassium 4.4 (3.4-5.1) mmol/L Chloride 97 L (98-107) mmol/L Carbon Dioxide 32 (22-32) mmol/L BUN 18 H (7-17) mg/dL Creatinine 0.60 (0.52-1.04) mg/dL Estimated GFR > 60.0 (>60) mL/min BUN/Creatinine Ratio 30.0 H (6-22) Glucose 119 H (80-110) mg/dL Lactate (0.7-2.1) mmol/L Calcium 9.9 (8.4-10.2) mg/dL Total Bilirubin 0.3 (0.2-1.3) mg/dL AST 31 (14-36) IU/L ALT 14 (<35) IU/L Alkaline Phosphatase 96 (38-126) U/L Total Protein 7.7 (6.3-8.2) g/dL Albumin 4.5 (3.5-5.0) g/dL Globulin 3.2 (1.7-4.1) g/dL Albumin/Globulin Ratio 1.4 (1.0-2.8) Lipase 126 (23-300) U/L TSH (0.47-4.68) uIU/mL Urine RBC (0-5/HPF) Urine WBC (0-5/HPF) Ur Squamous Epith Cells (0-5/HPF) Amorphous Sediment Urine Bacteria (None) Ur Culture Indicated? 04/18/19 04/18/19 04/18/19 Range/Units 17:08 17:08 18:50 WBC (4.5-11.0) X10^3/uL RBC (4.0-5.2) X10^6/uL Hgb (12.0-16.0) g/dL Hct (36-46) % MCV (80-100) fL MCH (26-34) PG MCHC (30-36) % RDW (11.6-14.8) % Plt Count (150-400) X10^3/uL Neut % (Auto) (50-75) % Lymph % (Auto) (25-40) % [place] % (Auto) (3-14) % Eos % (Auto) (2-4) % Baso % (Auto) (0-2) % Neut # (Auto) (9719-1597) /uL Lymph # (Auto) (2563-7869) /uL [place] # (Auto) (0-900) /uL Eos # (Auto) (0-450) /uL Baso # (Auto) (0-100) /uL PT (10.1-12.7) SECONDS INR (0.9-1.3) APTT (26.4-36.2) SECONDS Sodium (137-145) mmol/L Potassium (3.4-5.1) mmol/L Chloride (98-107) mmol/L Carbon Dioxide (22-32) mmol/L BUN (7-17) mg/dL Creatinine (0.52-1.04) mg/dL Estimated GFR (>60) mL/min BUN/Creatinine Ratio (6-22) Glucose (80-110) mg/dL Lactate 1.0 (0.7-2.1) mmol/L Calcium (8.4-10.2) mg/dL Total Bilirubin (0.2-1.3) mg/dL AST (14-36) IU/L ALT (<35) IU/L Alkaline Phosphatase (38-126) U/L Total Protein (6.3-8.2) g/dL Albumin (3.5-5.0) g/dL Globulin (1.7-4.1) g/dL Albumin/Globulin Ratio (1.0-2.8) Lipase (23-300) U/L TSH 1.88 (0.47-4.68) uIU/mL Urine RBC None seen (0-5/HPF) Urine WBC 0-1/hpf (0-5/HPF) Ur Squamous Epith Cells 0-1 /hpf (0-5/HPF) Amorphous Sediment 2+ Urine Bacteria None seen (None) Ur Culture Indicated? Cult not indicated Point of care testing: Urine Dip Bedside Urine Glucose Negative Bedside Urine Bilirubin - Negative Bedside Urine Ketone +++ 80 Urine Specific Bryant 1.015 Bedside Urine Occult Blood - Negative Bedside Urine pH 7 Bedside Urine Protein +/- 15 Bedside Urine Urobilinogen - Negative Bedside Urine Nitrite - Negative Bedside Urine Leukocytes - Negative Esterase Imaging Data CT scan - abdomen/pelvis: Radiologist's Impression: [place] [address] CT Scan Report Signed Patient: Fabien Xiong RMR#: [id number] : 3Acct:[id number] Age/Sex: 78 / FDate of Service: 04/18/19 Loc: ED Accession Number: [id number] Procedure: CT abdomen pelvis wo con Ordering Provider: Joseph Kunz PROCEDURE: CT ABDOMEN PELVIS WO CON INDICATIONS: severe abdominal pain and nausea. Hx appy, margi, hystrec TECHNIQUE: Noncontrast 5 mm thick sections acquired from the diaphragms to the symphysis. 5 mm coronal and sagittal reformats were then performed. For radiation dose reduction, the following was used: automated exposure control, adjustment of mA and/or kV according to patient size. COMPARISON: [facility], CT, CT ABDOMEN PELVIS WO CON, 01/17/2019, 23:28. FINDINGS: Image quality: Excellent. ABDOMEN: Lung bases: Persistent small left pleural effusion. Previously described consolidative opacity in the right lung base has substantially decreased in size. Heart size is normal. Solid organs: Liver is normal in size. Scattered calcified granulomas in the liver. Gallbladder is surgically absent. Pancreas is normal in contours. Spleen is normal in size. No right adrenal nodule. Stable 1.7 cm left adrenal nodule measuring less than 10 Hounsfield units. Kidneys are normal in size, without hydronephrosis. Stable 3 inferior right renal pole nonobstructing nephroliths measuring approximately 3 mm in size. Visualized course and caliber of the bilateral ureters appear normal. No ureteral stone. Peritoneum and bowel: Unenhanced bowel loops demonstrate normal wall thickness and caliber. Previously seen inflammatory stranding in the right lower quadrant has resolved. Mild sigmoid colonic diverticulosis without acute diverticulitis. No organized fluid collections. Trace amount of pelvic free fluid likely physiologic. No free air. Nodes and vessels: No retroperitoneal or mesenteric adenopathy by size criteria. Stable ectasia of the proximal abdominal aorta measuring up to 2.9 cm. Scattered atherosclerotic calcifications of the abdominal aorta and iliac vessels. Miscellaneous: No ventral hernias. Stable postsurgical changes in the ventral abdominal wall. PELVIS: Genitourinary: Bladder wall thickness is normal. Status post hysterectomy. Miscellaneous: No inguinal hernias or adenopathy. Bones: No suspicious bony lesions. No acute vertebral body compression fractures. Multilevel spondylitic changes throughout the imaged spine. Diffuse osteopenia. The IMPRESSION: 1. CT abdomen and pelvis without acute abnormalities. No evidence for bowel obstruction or acute inflammatory changes. 2. Substantial decrease in size of right lower lobe consolidation with persistent small right pleural effusion. Recommend followup imaging to document resolution. 3. Nonobstructing right nephroliths, unchanged. 4. Minimal sigmoid colonic diverticulosis without evidence for acute diverticulitis. Dictated by: Shahid Gutierrez M.D. on 04/18/2019 at 19:46 Approved by: Shahid Gutierrez M.D. on 04/18/2019 at 20:[address] [facility] Narrative Medical decision making narrative: And patient was actually examined by me in the room her pain was significantly subsided to 3 to 4/10. Her nausea had improved as well. Patient has mild anemia of H&H 11.5/34.3. NO increase in WBC but mildly elevated neutrophils. Normal Coag. Normal LFTs, Lipase and chemistries were unremarkable it is a mild signs of dehydration. Lactate was negative. Patient had 3+ ketones in urine without urine nitrite or leukocytes esterase. Patient was medicated with Zofran 4 mg upon arrival to ED and nausea was resolved. The abdomen was mildly tender to palpate in left quadrants. No flank/CVA tenderness to percuss. Bowel sounds were intact in [address] of abdomen and pelvis indicates no acute abnormalities appreciated including bowel obstructions. Nonobstructing right nephrolithiasis of 3 mm which is no change from previous CT in December 2018. There was improving right lower lobe consolidation and persistent small right pleural effusion. There was diverticulosis without evidence of acute diverticulitis at this time. Patient is afebrile in ED with stable vital signs. Patient is getting PET scan tomorrow to follow up with lung nodule since the patient is not able to receive IV or Oral CT Contrast due to anaphlylactic allergic reaction. At this time will reserve not treating patient with antibiotic medication the abdominal pain for possible progressing to diverticulitis since patient's pain has been improved significantly. Positive Guaic is likely due to existing hemorrhoids. Patient was assured with benign findings at this time. Patient advised to follow-up with her PCP and strict return precautions were discussed and advised to hydrate adequately with liquid and on bland diet. Patient verbalized understanding and agrees with the treatment plan. <Wayne Mercado MD - Last Filed: 04/19/19 21:32> Lab Data Labs: Lab Results 04/18/19 04/18/19 04/18/19 Range/Units 17:08 17:08 17:08 WBC 8.6 (4.5-11.0) X10^3/uL RBC 4.11 (4.0-5.2) X10^6/uL Hgb 11.5 L (12.0-16.0) g/dL Hct 34.3 L (36-46) % MCV 83.3 (80-100) fL MCH 27.9 (26-34) PG MCHC 33.5 (30-36) % RDW 15.4 H (11.6-14.8) % Plt Count 232 (150-400) X10^3/uL Neut % (Auto) 86.1 H (50-75) % Lymph % (Auto) 9.3 L (25-40) % [place] % (Auto) 3.0 (3-14) % Eos % (Auto) 1.0 L (2-4) % Baso % (Auto) 0.6 (0-2) % Neut # (Auto) 7400 H (1668-6848) /uL Lymph # (Auto) 800 L (8176-8081) /uL [place] # (Auto) 300 (0-900) /uL Eos # (Auto) 100 (0-450) /uL Baso # (Auto) 100 (0-100) /uL PT 11.1 (10.1-12.7) SECONDS INR 1.0 (0.9-1.3) APTT 34 (26.4-36.2) SECONDS Sodium 137 (137-145) mmol/L Potassium 4.4 (3.4-5.1) mmol/L Chloride 97 L (98-107) mmol/L Carbon Dioxide 32 (22-32) mmol/L BUN 18 H (7-17) mg/dL Creatinine 0.60 (0.52-1.04) mg/dL Estimated GFR > 60.0 (>60) mL/min BUN/Creatinine Ratio 30.0 H (6-22) Glucose 119 H (80-110) mg/dL Lactate (0.7-2.1) mmol/L Calcium 9.9 (8.4-10.2) mg/dL Total Bilirubin 0.3 (0.2-1.3) mg/dL AST 31 (14-36) IU/L ALT 14 (<35) IU/L Alkaline Phosphatase 96 (38-126) U/L Total Protein 7.7 (6.3-8.2) g/dL Albumin 4.5 (3.5-5.0) g/dL Globulin 3.2 (1.7-4.1) g/dL Albumin/Globulin Ratio 1.4 (1.0-2.8) Lipase 126 (23-300) U/L TSH (0.47-4.68) uIU/mL Urine RBC (0-5/HPF) Urine WBC (0-5/HPF) Ur Squamous Epith Cells (0-5/HPF) Amorphous Sediment Urine Bacteria (None) Ur Culture Indicated? 04/18/19 04/18/19 04/18/19 Range/Units 17:08 17:08 18:50 WBC (4.5-11.0) X10^3/uL RBC (4.0-5.2) X10^6/uL Hgb (12.0-16.0) g/dL Hct (36-46) % MCV (80-100) fL MCH (26-34) PG MCHC (30-36) % RDW (11.6-14.8) % Plt Count (150-400) X10^3/uL Neut % (Auto) (50-75) % Lymph % (Auto) (25-40) % [place] % (Auto) (3-14) % Eos % (Auto) (2-4) % Baso % (Auto) (0-2) % Neut # (Auto) (4318-1434) /uL Lymph # (Auto) (7423-1847) /uL [place] # (Auto) (0-900) /uL Eos # (Auto) (0-450) /uL Baso # (Auto) (0-100) /uL PT (10.1-12.7) SECONDS INR (0.9-1.3) APTT (26.4-36.2) SECONDS Sodium (137-145) mmol/L Potassium (3.4-5.1) mmol/L Chloride (98-107) mmol/L Carbon Dioxide (22-32) mmol/L BUN (7-17) mg/dL Creatinine (0.52-1.04) mg/dL Estimated GFR (>60) mL/min BUN/Creatinine Ratio (6-22) Glucose (80-110) mg/dL Lactate 1.0 (0.7-2.1) mmol/L Calcium (8.4-10.2) mg/dL Total Bilirubin (0.2-1.3) mg/dL AST (14-36) IU/L ALT (<35) IU/L Alkaline Phosphatase (38-126) U/L Total Protein (6.3-8.2) g/dL Albumin (3.5-5.0) g/dL Globulin (1.7-4.1) g/dL Albumin/Globulin Ratio (1.0-2.8) Lipase (23-300) U/L TSH 1.88 (0.47-4.68) uIU/mL Urine RBC None seen (0-5/HPF) Urine WBC 0-1/hpf (0-5/HPF) Ur Squamous Epith Cells 0-1 /hpf (0-5/HPF) Amorphous Sediment 2+ Urine Bacteria None seen (None) Ur Culture Indicated? Cult not indicated Point of care testing: Urine Dip Bedside Urine Glucose Negative Bedside Urine Bilirubin - Negative Bedside Urine Ketone +++ 80 Urine Specific [place] 1.015 Bedside Urine Occult Blood - Negative Bedside Urine pH 7 Bedside Urine Protein +/- 15 Bedside Urine Urobilinogen - Negative Bedside Urine Nitrite - Negative Bedside Urine Leukocytes - Negative Esterase Discharge Plan Departure Patient Disposition: Home Clinical Impression: Abdominal pain Qualifiers: Abdominal location: generalized Qualified Code(s): R10.84 - Generalized abdominal pain Discharge Date/Time: 04/18/19 21:07 Instructions: DI for Abdominal Pain-Adult Activity Restrictions/Additional Instructions: You have been diagnosed with [ abdominal pain in Left quadrants and R flank which subsided significantly. CT scan does not show any acute abnormalities or obstruction or acute inflammatory changes. There is a nonobstructing 3 mm right kidney stone. There was minimal sigmoid colonic diverticulosis without evidence of acute diverticulitis. Substantially decreased in right lower lobe consolidation with right pleural effusion from 3 months ago. There was no elevated WBC with normal clotting factors. Chemistry test looks good. Liver function test was normal as well. Urine test looks no indication of infection today.]. What to do: *Take your medications as directed. Please continue with her medication. Hydrate herself adequately with liquids. *Follow up with your primary care provider in 2-3 days, call for an appointment. Let them know you were seen in the ED and that we asked you to be seen in follow up. *Return to ED if you have any new, worsening, or concerning symptoms, such as [fever, vomiting, increasing pain, blood in her stool, chest pain, breathing difficulty, or any acute concerns]. Prescriptions: No Action Restasis 0.05 % dropperette 1 drop EYE-BOTH BID RF: 0 (DME) Disabled Parking Placard Qty: 1 RF: 0 Shingrix (PF) 50 mcg/0.5 mL suspension for reconstitution 50 mcg IM ONCE Qty: 1 RF: 1 multivitamin [Multiple Vitamins] 1 EACH tablet 1 tab PO DAILY Qty: 0 RF: 0 metoprolol tartrate 25 mg tablet 12.5 mg PO BID Qty: 90 RF: 3 rosuvastatin 20 mg tablet 20 mg PO BEDTIME Qty: 90 RF: 3 levothyroxine 75 mcg tablet 75 mcg PO DAILY Qty: 90 RF: 3 PreserVision AREDS-2 [id number] Capsule 1 tab PO BID Qty: 0 RF: 0 polyethylene glycol 3350 527 GM powder 17 gm PO DAILY RF: 0 melatonin 10 mg Tablet 10 mg PO BEDTIME RF: 0 mirtazapine 7.5 mg tablet 7.5 - 15 mg PO BEDTIME RF: 0 aspirin 81 mg Tablet,Delayed Release (Dr/Ec) 81 mg PO DAILY RF: 0 cholecalciferol (vitamin D3) [Vitamin D3] 2,000 unit Capsule 2,000 unit PO DAILY RF: 0 gabapentin [Neurontin] 300 mg capsule 300 mg PO QID RF: 0 clopidogrel 75 mg tablet 75 mg PO DAILY RF: 0 Referrals: Sofia Christie PA-C [Primary Care Provider] -
== END 2019-04-18 21:07 | disposition home or self-care (01) ==
PROVIDERS: Emergency Medicine; Emergency Provider Nurse Practitioner Family; Family Provider Physician Assistant; PCP Physician Assistant
DX: R10.84 Generalized abdominal pain (principal); D64.9 Anemia, unspecified; E03.9 Hypothyroidism, unspecified
CPT/HCPCS: 36415; 74176; 80053; 81003; 81015; 83605; 83690; 84443; 85025; 85610; 85730; 99284

== ENCOUNTER → 2019-05-12 08:12 | Outpatient (CLI) | payer MEDICARE, OTHER, SELFPAY ==
[2018-03-21 10:08] VITALS: BMI 23.8
--- NOTE | 2019-05-19 16:37 | PM.PFT.1 ---
Pulmonary Function Test Referral & Results Date Patient Seen: 05/12/19 Requesting provider: Viki Ruffin Results: The spirometry demonstrates an FVC of 1.98 L which is 71% of predicted. The FEV1 was measured at 0.85 L which is 40% of predicted. The FEV1/FVC ratio was 43 which is 57% of predicted. No bronchodilator was administered No lung volumes were performed The diffusing capacity was measured at 6.30 which is 25% of predicted. No hemoglobin value was provided, so no correction for potential anemia could be made, if appropriate. Interpretation: This study demonstrates severe obstructive lung disease with FEV1 of only 850 mL There is also a very severe reduction in diffusing capacity suggesting significant disease at the capillary alveolar level to the point where patient may well be hypoxic at times on room air
== END ==
PROVIDERS: Family Provider Physician Assistant; PCP Physician Assistant; Referring Provider Internal Medicine Critical Care Medicine; Visit Provider Internal Medicine Critical Care Medicine
DX: J43.2 Centrilobular emphysema (principal); Z87.891 Personal history of nicotine dependence
CPT/HCPCS: 94010; 94729

== ENCOUNTER → 2019-07-20 10:58 | Outpatient (CLI) | payer MEDICARE, OTHER, SELFPAY ==
[2018-03-21 10:08] VITALS: BMI 23.8
--- NOTE | 2019-07-20 | DI.MRI.S_ITS ---
PROCEDURE: MR HEAD/BRAIN WO/W CON INDICATIONS: Abnormal findings on diagnostic imaging of skull a TECHNIQUE: Noncontrast axial T1 spin echo, axial T2 fast spin echo, sagittal and axial FLAIR, coronal T2 fast spin echo, axial gradient echo, axial diffusion and ADC through the brain. After the administration of contrast, axial and coronal 3D VIBE or T1 spin echo with fat saturation through the brain. COMPARISON: [facility], OR, OR PET CT FUSION SKULL 2 THIGH, 04/19/2019, 17:03. [facility], MR, MR HEAD/BRAIN WO/W CON, 11/16/2018, 15:43. FINDINGS: Image quality: Excellent. CSF Spaces: Basal cisterns are patent. No extra-axial fluid collections. Ventricles are normal in size and shape. Brain: No midline shift. No intracranial bleeds or masses. No abnormal intracranial enhancement. The brainstem appears normal. Diffusion-weighted images demonstrate no acute ischemic insults. No chronic ischemic insults. Normal intravascular flow voids are present. Skull and face: There is a 16 mm focus of ill-defined enhancement and FLAIR signal elevation within the left frontal calvarium, as before, which is unchanged. Calvarial marrow is otherwise normal in signal. Orbits appear normal. Sinuses: Sinuses and mastoids appear clear. IMPRESSION: 1. Volume loss and small vessel ischemic disease. 2. No change in focus of enhancement within the left frontal calvarium, possibly indicating metastatic disease. Bone scan may be helpful for further assessment. 3. No acute process. No recent infarct. No evidence of cerebral metastasis. Dictated by: Cornell Molina M.D. on 07/20/2019 at 11:58 Approved by: Cornell Molina M.D. on 07/20/2019 at 12:02
[2019-07-22 10:37] LABS: Protein C-Functional 112 % (73-180); Protein S-Functional 55 % (63-140)
[2019-07-22 11:08] LABS: Dilute Russell Viper Venom 31.5 sec (0.0-47.0); Lupus Reflex Interpretation Comment: (.); PTT-LA 32.2 sec (0.0-51.9)
== END ==
PROVIDERS: Internal Medicine; Family Provider Physician Assistant; PCP Physician Assistant; Referring Provider Radiology Radiation Oncology; Visit Provider Radiology Radiation Oncology
DX: R93.0 Abnormal findings on diagnostic imaging of skull and head, not elsewhere classified (principal); H53.9 Unspecified visual disturbance; R90.89 Other abnormal findings on diagnostic imaging of central nervous system; G45.3 Amaurosis fugax; Z86.711 Personal history of pulmonary embolism
CPT/HCPCS: 36415; 70553; 85303; 85306; 85307; 85598; 85613; A9579

== ENCOUNTER → 2019-08-08 10:44 | Outpatient (CLI) | payer MEDICARE, OTHER, SELFPAY ==
[2018-03-21 10:08] VITALS: BMI 23.8
--- NOTE | 2019-08-08 10:47 | DI.CT.S_ITS ---
PROCEDURE: CT CHEST WO CON INDICATIONS: Dyspnea, unspecified TECHNIQUE: Noncontrast 5 mm thick sections acquired from the pulmonary apices to the posterior costophrenic angles. 1 mm lung window, 5 mm thick coronal and sagittal and 7 mm axial MIP reformats were then acquired. For radiation dose reduction, the following was used: automated exposure control, adjustment of mA and/or kV according to patient size. COMPARISON: [facility], CT, CT CHEST WO CON, 11/06/2017, 13:14. [facility], [place], [place] PET CT FUSION SKULL 2 THIGH, 04/19/2019, 17:03. [facility], CT, CT CHEST WO CON, 01/10/2018, 12:48. [facility], CT, CT CHEST WO CON, 03/23/2019, 10:39. FINDINGS: Image quality: Excellent. Lungs and pleura: Redemonstration of right apical nodule (with suspicious FDG uptake on comparison PET CT). Overall, no interval change in size since 03/23/19. Background upper lobe predominant centrilobular emphysema. No acute consolidation. Scattered subsegmental atelectasis and/or scarring. No focal consolidation. Calcified granuloma seen on image 126/30 in the left lung base. Airway thickening in keeping with nonspecific bronchitis and/or reactive airways disease. No pleural effusions or pneumothorax. Central and peripheral airways are patent and normal in caliber. Mediastinum: Heart size is normal. Coronary artery calcifications are present. No pericardial effusion. No mediastinal adenopathy by size criteria. Thoracic aorta and central pulmonary arteries are normal in size. Scattered vascular calcifications seen in the aorta. Esophagus is normal in caliber. No hiatal hernia. Bones and chest wall: No suspicious bony lesions. Diffuse osteopenia. Spondylitic changes and mild anterior wedging of lower thoracic vertebral bodies as before. No axillary or supraclavicular adenopathy by size criteria. Thyroid gland atrophic. Abdomen: Visualized upper abdominal solid organs and bowel loops appear normal in the absence of contrast. Gallbladder surgically absent. Low-attenuation left adrenal adenoma is unchanged. IMPRESSION: Redemonstration of grossly unchanged right apical nodule as detailed above Chronic interstitial changes and upper lobe predominant emphysema Additional chronic and incidental findings as above. Dictated by: Haroldo Barton M.D. on 08/08/2019 at 11:30 Approved by: Haroldo Barton M.D. on 08/08/2019 at 11:44
== END ==
PROVIDERS: Family Provider Physician Assistant; PCP Nurse Practitioner; Referring Provider Radiology Radiation Oncology; Visit Provider Radiology Radiation Oncology
DX: R06.00 Dyspnea, unspecified (principal); R91.1 Solitary pulmonary nodule; D35.02 Benign neoplasm of left adrenal gland; I25.10 Atherosclerotic heart disease of native coronary artery without angina pectoris; M85.80 Other specified disorders of bone density and structure, unspecified site; M47.814 Spondylosis without myelopathy or radiculopathy, thoracic region; Z90.49 Acquired absence of other specified parts of digestive tract
CPT/HCPCS: 71250

== ENCOUNTER 2019-09-17 13:53 | Observation (INO) | payer MEDICARE, OTHER, SELFPAY ==
[2018-03-21 10:08] VITALS: BMI 23.8
[2019-09-17] VITALS (14 sets, daily range): BP systolic 123–198; BP diastolic 67–87; PULSE 86–96; RESP 15–20; TEMP 36.6–36.9; O2SAT 92–98; BMI 24.0
--- NOTE | 2019-09-17 14:26 | ED_ITS ---
HPI - Weakness General Chief complaint: Weakness Stated complaint: increasing weakness Time Seen by Provider: 09/17/19 14:03 Source: patient and family Mode of arrival: Wheelchair Limitations: no limitations History of Present Illness HPI Narrative: Patient is a 78-year-old female with history of recent lung cancer and radiation in the month of July, prior history of non-Hodgkin's lymphoma 15 years ago presenting with progressive increasing weakness and short of breath and over the last 1 month. She says that she is become extremely fatigued since radiation is seems to progressively be getting worse. She had quite a busy day yesterday she was cooking pork roast which took her all day as she has to take frequent breaks. She gets short of breath with exertion she denies any orthopnea. She has no chest pain. She has not had any fever or chills. She has profound diffuse weakness. MD Complaint: generalized weakness Location: generalized Related Data Home Medications Medication Instructions Recorded Confirmed multivitamin [Multiple Vitamins] 1 tab PO DAILY #0 01/01/17 03/30/19 melatonin 10 mg PO BEDTIME 10/29/17 04/18/19 polyethylene glycol 3350 17 gm PO DAILY 10/29/17 03/30/19 vit C,Q-Ds-pdgee-lutein-zeaxan 1 tab PO BID #0 10/29/17 03/30/19 [PreserVision AREDS-2] cyclosporine 0.05 % eye drops in a 1 drop EYE-BOTH BID each 05/04/18 03/30/19 dropperette aspirin 81 mg PO DAILY 01/20/19 04/18/19 cholecalciferol (vitamin D3) 2,000 unit PO DAILY 01/20/19 04/18/19 [Vitamin D3] clopidogrel 75 mg PO DAILY 04/18/19 04/18/19 Previous Rx's Medication Instructions Recorded Disabled Parking Placard #1 ea 05/04/18 varicella-zoster [id number] (PF) 50 50 mcg IM ONCE #1 each 05/04/18 mcg/0.5 mL IM susp, kit levothyroxine 75 mcg tablet 75 mcg PO DAILY #90 tab 04/17/19 rosuvastatin 20 mg tablet See Rx Instructions .ROUTE 06/13/19 .COMPLEX #90 tablet metoprolol tartrate 25 mg tablet See Rx Instructions .ROUTE 07/12/19 .COMPLEX #90 tab gabapentin 400 mg capsule 400 mg PO BID #180 cap 08/07/19 gabapentin 800 mg tablet 800 mg PO BEDTIME #90 tab 08/07/19 mirtazapine 7.5 mg tablet 7.5 - 15 mg PO BEDTIME #180 tab 09/04/19 Allergies Allergy/AdvReac Type Severity Reaction Status Date / Time ampicillin [AMPICILLIN] Allergy Severe BLOODY Verified 04/26/19 13:49 DIARRHEA Iodinated Contrast Media Allergy Severe ANAPHYLAXIS Verified 04/26/19 13:49 [IODINATED CONTRAST MEDIA - IV DYE] oxycodone [OXYCODONE] AdvReac Intermediate MAKES ME Verified 09/17/19 15:39 MEAN, CHANGE OF PERSONALITY adhesive [ADHESIVE] AdvReac Mild REDNESS Verified 04/26/19 13:49 Review of Systems Review of Systems ROS Unobtainable: All systems reviewed & are unremarkable except as noted in HPI and below Constitutional Constitutional: Denies chills, Reports fatigue, Denies fever(s) and Denies headache(s) Eyes Eyes: Denies change in vision, Denies eye discharge, Denies irritation and Denies loss of vision ENT Ears, Nose, Mouth, and Throat: Reports dry mouth (chronic), Denies otalgia, Denies headache(s), Denies neck pain and Denies odynophagia Cardiovascular Cardiovascular: Denies chest pain, Denies irregular heart rhythm, Denies lightheadedness, Denies palpitations, Reports dyspnea on exertion and Denies orthopnea Respiratory Respiratory: Denies cough and Reports dyspnea on exertion Gastrointestinal Gastrointestinal: Denies abdominal pain, Denies melena and Denies odynophagia Musculoskeletal Musculoskeletal: Denies neck pain Integumentary/Breasts Skin/Breast: Denies pruritus, Denies erythema, Denies rash and Denies wounds Neurologic Neurologic: Denies headache(s) and Denies loss of vision Endocrine Endocrine: Reports fatigue and Denies palpitations 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) GERD (gastroesophageal reflux disease) (Chronic) History of aortic valve replacement with bioprosthetic valve (Inactive 10/23/10) Hyperlipidemia (Acute) Hypertension (Acute) Hypothyroidism (Acute) Macular degeneration (Acute) Mitral valve disorder (Chronic) Non Hodgkin's lymphoma (Inactive) Osteoarthritis (Chronic 07/23/10) Osteoporosis (Chronic ~2015) Peripheral neuropathy (Chronic) Pulmonary embolism (Resolved) Raynaud's disease (Chronic 05/17/12) 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 (Acute ~05/2019) Surgical History H/O total hysterectomy (Acute) History of appendectomy (Acute) History of cataract removal with insertion of prosthetic lens History of cholecystectomy (Acute) History of lumpectomy of left breast (Resolved) History of lung surgery (Resolved 1993) Hx of aortic valve replacement (Resolved 07/2013) Hx of fusion of cervical spine (Resolved ~03/2004) Hx of hysterectomy (Resolved ~04/1987) Status post cholecystectomy Family History Mother Cancer Social History household members: none Smoking Status: Former smoker Tobacco: How many years used: 50 second hand exposure: Yes alcohol intake: current substance use type: does not use Smoking Status: Former smoker alcohol intake frequency: holidays/special occasions only Substance Use Type: does not use Exam Initial Vital Signs Initial Vital Signs: Vital Signs Temperature 98.2 F 09/17/19 13:55 Pulse Rate 91 H 09/17/19 13:55 Respiratory Rate 20 09/17/19 13:55 Blood Pressure 140/70 09/17/19 13:55 Pulse Oximetry 96 09/17/19 13:55 GENERAL: Pale week the and in no acute distress. HEENT: Head atraumatic,EOMI, pupils reactive, face symmetric, dry mucous memb chuck CARDIOVASCULAR: Regular rate and rhythm without murmurs, rubs or gallops. RESPIRATORY: Decreased breath sounds bilaterally no wheezing rales or rhonchi ABDOMEN: Soft, nontender. Normoactive bowel sounds all 4 quadrants. No guarding or rebound. RECTAL: Hemoccult-positive, no hemorrhoids, nontender EXTREMITIES: Normal range of motion, no clubbing or edema. Neurovascularly intact NEUROLOGICAL: Alert and oriented x4.Normal gait and speech. Cranial nerves II through XII grossly intact. SKIN: Warm, dry, no laceration, no petechiae, no rashes or lesions. Course Orders Ordered: ED Orders 09/17/19 14:15 Complete Blood Count AUTO DIFF Stat Comprehensive Metabolic Panel Stat Lactate (Lactic Acid) Stat Partial Thromboplastin Time Stat Procalcitonin Stat Prothrombin Time INR Stat Troponin & CK Cardiac Panel Stat 09/17/19 14:26 XR chest 2V Stat 09/17/19 14:31 EKG-12 Lead Stat 09/17/19 15:10 Blood Culture Stat Packed Cells Stat Type and Screen Stat 09/17/19 16:19 Consult to General Surgery Stat Discontinued Medications Pantoprazole Sodium (Protonix) 40 mg IV NOW ONE Stop: 09/17/19 15:38 Last Admin: 09/17/19 16:09 Dose: 40 mg Documented by: RICHARD Consultations Consultation #1: Dr. Desai, a day and patient's symptoms test results would like to hear back after surgery has been consulted but is happy to accept if surgery is on board Consultation #2: Dr. Lance, updated patient's symptoms test results agrees with consultation and admission to hospitalist Vital Signs Vital signs: Vital Signs - 8 hr 09/17/19 13:55 09/17/19 14:30 09/17/19 15:43 Temperature 98.2 F Pulse Rate 91 H 92 H 91 H Respiratory Rate 20 15 19 Blood Pressure 140/70 Blood Pressure [Left Arm] Blood Pressure [Right Arm] 195/83 H 198/85 H Pulse Oximetry 96 97 96 09/17/19 15:58 09/17/19 16:00 09/17/19 16:30 Temperature Pulse Rate 92 H 90 Respiratory Rate 16 16 Blood Pressure Blood Pressure [Left Arm] 188/81 H 186/85 H 179/84 H Blood Pressure [Right Arm] 168/77 H 164/74 H Pulse Oximetry 98 09/17/19 16:45 Temperature 97.9 F Pulse Rate 89 Respiratory Rate 16 Blood Pressure 156/77 H Blood Pressure [Left Arm] Blood Pressure [Right Arm] Pulse Oximetry MDM - Weakness Lab Data Attestation: I reviewed the patient's lab results. Result diagrams: 09/17/19 14:15 09/17/19 14:15 Labs: Lab Results 0609/17/19 09/17/19 Range/Units 14:15 14:15 14:15 WBC 5.1 (4.5-11.0) X10^3/uL RBC 2.81 L (4.0-5.2) X10^6/uL Hgb 5.4 L* (12.0-16.0) g/dL Hct 17.9 L* (36-46) % MCV 63.9 L (80-100) fL MCH 19.3 L (26-34) PG MCHC 30.3 (30-36) % RDW 19.8 H (11.6-14.8) % Plt Count 208 (150-400) X10^3/uL Neut % (Auto) 57.3 (50-75) % Lymph % (Auto) 33.7 (25-40) % [place] % (Auto) 6.5 (3-14) % Eos % (Auto) 1.5 L (2-4) % Baso % (Auto) 1.0 (0-2) % Neut # (Auto) 2900 (6301-2182) /uL Lymph # (Auto) 1700 (6179-0356) /uL [place] # (Auto) 300 (0-900) /uL Eos # (Auto) 100 (0-450) /uL Baso # (Auto) 100 (0-100) /uL RBC Morphology See below Polychromasia 1+ H Hypochromasia 2+ H Microcytosis 2+ H PT (10.1-12.7) SECONDS INR (0.9-1.3) APTT (26.4-36.2) SECONDS Sodium 133 L (137-145) mmol/L Potassium 4.4 (3.4-5.1) mmol/L Chloride 99 (98-107) mmol/L Carbon Dioxide 28 (22-32) mmol/L BUN 23 H (7-17) mg/dL Creatinine 0.48 L (0.52-1.04) mg/dL Estimated GFR > 60.0 (>60) mL/min BUN/Creatinine Ratio 47.9 H (6-22) Glucose 103 (80-110) mg/dL Lactate (0.7-2.1) mmol/L Calcium 9.5 (8.4-10.2) mg/dL Total Bilirubin 0.3 (0.2-1.3) mg/dL AST 25 (14-36) IU/L ALT 11 (<35) IU/L Alkaline Phosphatase 75 (38-126) U/L Total Creatine Kinase (30-135) U/L CK-MB (CK-2) CK-MB (CK-2) Rel Index Troponin I (0.01-0.034) ng/mL Total Protein 6.5 (6.3-8.2) g/dL Albumin 4.2 (3.5-5.0) g/dL Globulin 2.3 (1.7-4.1) g/dL Albumin/Globulin Ratio 1.8 (1.0-2.8) Procalcitonin < 0.05 (<0.5) ng/mL Blood Type Antibody Screen Crossmatch 09/17/19 09/17/19 09/17/19 Range/Units 14:15 14:15 14:15 WBC (4.5-11.0) X10^3/uL RBC (4.0-5.2) X10^6/uL Hgb (12.0-16.0) g/dL Hct (36-46) % MCV (80-100) fL MCH (26-34) PG MCHC (30-36) % RDW (11.6-14.8) % Plt Count (150-400) X10^3/uL Neut % (Auto) (50-75) % Lymph % (Auto) (25-40) % [place] % (Auto) (3-14) % Eos % (Auto) (2-4) % Baso % (Auto) (0-2) % Neut # (Auto) (9287-0189) /uL Lymph # (Auto) (7584-4481) /uL [place] # (Auto) (0-900) /uL Eos # (Auto) (0-450) /uL Baso # (Auto) (0-100) /uL RBC Morphology Polychromasia Hypochromasia Microcytosis PT 12.1 (10.1-12.7) SECONDS INR 1.1 (0.9-1.3) APTT 30 D (26.4-36.2) SECONDS Sodium (137-145) mmol/L Potassium (3.4-5.1) mmol/L Chloride (98-107) mmol/L Carbon Dioxide (22-32) mmol/L BUN (7-17) mg/dL Creatinine (0.52-1.04) mg/dL Estimated GFR (>60) mL/min BUN/Creatinine Ratio (6-22) Glucose (80-110) mg/dL Lactate 1.0 (0.7-2.1) mmol/L Calcium (8.4-10.2) mg/dL Total Bilirubin (0.2-1.3) mg/dL AST (14-36) IU/L ALT (<35) IU/L Alkaline Phosphatase (38-126) U/L Total Creatine Kinase 42 (30-135) U/L CK-MB (CK-2) TNP CK-MB (CK-2) Rel Index TNP Troponin I < 0.012 (0.01-0.034) ng/mL Total Protein (6.3-8.2) g/dL Albumin (3.5-5.0) g/dL Globulin (1.7-4.1) g/dL Albumin/Globulin Ratio (1.0-2.8) Procalcitonin (<0.5) ng/mL Blood Type Antibody Screen Crossmatch 09/17/19 Range/Units 15:10 WBC (4.5-11.0) X10^3/uL RBC (4.0-5.2) X10^6/uL Hgb (12.0-16.0) g/dL Hct (36-46) % MCV (80-100) fL MCH (26-34) PG MCHC (30-36) % RDW (11.6-14.8) % Plt Count (150-400) X10^3/uL Neut % (Auto) (50-75) % Lymph % (Auto) (25-40) % [place] % (Auto) (3-14) % Eos % (Auto) (2-4) % Baso % (Auto) (0-2) % Neut # (Auto) (7144-7822) /uL Lymph # (Auto) (8708-4841) /uL [place] # (Auto) (0-900) /uL Eos # (Auto) (0-450) /uL Baso # (Auto) (0-100) /uL RBC Morphology Polychromasia Hypochromasia Microcytosis PT (10.1-12.7) SECONDS INR (0.9-1.3) APTT (26.4-36.2) SECONDS Sodium (137-145) mmol/L Potassium (3.4-5.1) mmol/L Chloride (98-107) mmol/L Carbon Dioxide (22-32) mmol/L BUN (7-17) mg/dL Creatinine (0.52-1.04) mg/dL Estimated GFR (>60) mL/min BUN/Creatinine Ratio (6-22) Glucose (80-110) mg/dL Lactate (0.7-2.1) mmol/L Calcium (8.4-10.2) mg/dL Total Bilirubin (0.2-1.3) mg/dL AST (14-36) IU/L ALT (<35) IU/L Alkaline Phosphatase (38-126) U/L Total Creatine Kinase (30-135) U/L CK-MB (CK-2) CK-MB (CK-2) Rel Index Troponin I (0.01-0.034) ng/mL Total Protein (6.3-8.2) g/dL Albumin (3.5-5.0) g/dL Globulin (1.7-4.1) g/dL Albumin/Globulin Ratio (1.0-2.8) Procalcitonin (<0.5) ng/mL Blood Type A Positive Antibody Screen Negative Crossmatch See Detail Urine Dip Bedside Urine Glucose Negative Bedside Urine Bilirubin - Negative Bedside Urine Ketone - Negative Urine Specific [place] 1.010 Bedside Urine Occult Blood - Negative Bedside Urine pH 6.5 Bedside Urine Protein - Negative Bedside Urine Urobilinogen - Negative Bedside Urine Nitrite - Negative Bedside Urine Leukocytes - Negative Esterase Imaging Data Chest x-ray: Radiologist Impression: PROCEDURE: XR CHEST 2V INDICATIONS: weakness TECHNIQUE: 2 views of the chest were acquired. COMPARISON: Chest CT dated 08/08/19. FINDINGS: Surgical changes and devices: Aortic valve prosthesis. Lower cervical fusion. Cholecystectomy clips. Lungs and pleura: Lungs are clear. Right apical lung mass is better seen on CT. No pleural effusions or pneumothorax. Enlarged pulmonary m[place] are consistent with pulmonary care hypertension. Mediastinum: Mediastinal contours are normal. Heart size is normal. Bones and chest wall: No suspicious bony abnormalities. Chronic rib deformity on the left. Soft tissues appear unremarkable. IMPRESSION: 1. Known right apical lung mass is better evaluated by recent CT. 2. Findings consistent with pulmonary arterial hypertension. 3. No evidence acute pulmonary process. Dictated by: Geoff Almaguer M.D. on 09/17/2019 at 15:03 ECG Data Attestation: I personally reviewed and interpreted this ECG as follows: Prior ECG tracings: available for review Interpretation: Normal sinus rhythm rate 87 p.r. interval 162 QRS [address] elevation depression or T-wave inversion MDM Narrative Medical decision making narrative: Patient initially appears pale she is guaiac- positive hemoglobin hematocrit are significantly low. She is stable likely chronic GI bleed. In fact she is noted to be hypertensive. She stopped her metoprolol recently and is quite anxious about being in the hospital. Discharge Plan Departure Patient Disposition: Admitted as Observation Clinical Impression: Acute GI bleeding Anemia Qualifiers: Anemia type: unspecified type Qualified Code(s): D64.9 - Anemia, unspecified Discharge Date/Time: 09/17/19 16:50 Referrals: Arabella Patel ARNP [Primary Care Provider] - Admit Date/Time: 09/17/19 16:51 Admit Provider: Dorothy Desai
--- NOTE | 2019-09-17 14:31 | PC.NURSE ---
Patient completed radiation in July for tumor in chest. Patient has known lung cancer and has had 4 reoccurrence of non Hodgkin lymphoma. Patient uses home oxygen at night time. Has progressivly felt herself getting weaker and weaker requiring herself to take breaks all the time in order to complete a task. Patient color pale. Dneies blood in stool.
[2019-09-17 14:42] LABS: Add Manual Diff / Slide Review NO; Basophils Absolute Auto 100 /uL (0-100); Eosinophils Absolute Auto 100 /uL (0-450); Eosinophils Percent Auto 1.5 % (2-4); INR 1.1 (0.9-1.3); Lymphocytes Absolute Auto 1700 /uL (1100-4500); Lymphocytes Percent Auto 33.7 % (25-40); Mean Corpuscular HGB Conc 30.3 % (30-36); Mean Corpuscular Hemoglobin 19.3 PG (26-34); Mean Corpuscular Volume 63.9 fL (80-100); Monocytes Absolute Auto 300 /uL (0-900); Monocytes Percent Auto 6.5 % (3-14); Neutrophils Absolute Auto 2900 /uL (1500-7000); Neutrophils Percent Auto 57.3 % (50-75); Platelet Count 208 X10^3/uL (150-400); Prothrombin Time 12.1 SECONDS (10.1-12.7); Red Blood Cell Count 2.81 X10^6/uL (4.0-5.2); Red Cell Distribution Width 19.8 % (11.6-14.8); White Blood Cell Count 5.1 X10^3/uL (4.5-11.0)
[2019-09-17 14:45] LABS: Hematocrit 17.9 % (36-46); Hemoglobin 5.4 g/dL (12.0-16.0); PTT Partial Thromboplastin Tim 30 SECONDS (26.4-36.2)
[2019-09-17 14:47] LABS: Alanine Aminotransferase 11 IU/L (<35); Albumin 4.2 g/dL (3.5-5.0); Albumin Globulin Ratio 1.8 (1.0-2.8); Alkaline Phosphatase 75 U/L (38-126); Aspartate Aminotransferase 25 IU/L (14-36); BUN Creatinine Ratio 47.9 (6-22); Bilirubin Total 0.3 mg/dL (0.2-1.3); Blood Urea Nitrogen 23 mg/dL (7-17); Calcium 9.5 mg/dL (8.4-10.2); Carbon Dioxide 28 mmol/L (22-32); Chloride 99 mmol/L (98-107); Creatine Kinase 42 U/L (30-135); Estimated Glomerular Filt Rate > 60.0 mL/min (>60); Globulin 2.3 g/dL (1.7-4.1); Glucose 103 mg/dL (80-110); HEMOLYSIS < 15 (0-50); Potassium 4.4 mmol/L (3.4-5.1); Sodium 133 mmol/L (137-145); Total Protein 6.5 g/dL (6.3-8.2)
[2019-09-17 14:59] LABS: Troponin I < 0.012 ng/mL (0.01-0.034)
[2019-09-17 15:14] LABS: Procalcitonin < 0.05 ng/mL (<0.5)
[2019-09-17 15:16] LABS: Hypochromasia 2+; Microcytosis 2+; Polychromasia 1+
--- NOTE | 2019-09-17 15:34 | PC.NURSE ---
stand by for rectal exam. Guiac positive
[2019-09-17] MEDS: PANTOPRAZOLE 40 MG VIAL IV ×2 (16:09→21:55)
[2019-09-17 17:41] LABS: COVID19 -Nasal RAPID Negative (Negative)
--- NOTE | 2019-09-17 21:10 | PM.CN ---
History of Present Illness Consult details Date Patient Seen: 09/17/19 Time Patient Seen: 21:10 Chief complaint: increasing weakness Narrative: This is a 78-year-old woman who is admitted to the hospital with symptomatic anemia. On admission hematocrit 18, with guaiac-positive stool. She was hemodynamically stable but felt weak and lightheaded. She had been feeling this way for the last several weeks. She denies any gross blood per rectum no hematemesis change in bowel function. She says she has intermittent epigastric pain no nausea or vomiting and was recently started on Plavix several weeks ago in addition to 81 mg of aspirin. Her last colonoscopy was 5 years ago which was significant for at removal of several polyps. Past medical history is signficant for COPD on home oxygen, prior CVA, aortic valve replacement, prior neck radiation for non-Hodgkin's lymphoma and recent right upper lobe lung cancer undergoing radiation therapy, Meds Home Medications and Allergies Home Medications Medication Instructions Recorded Confirmed Type multivitamin [Multiple Vitamins] 1 tab PO DAILY #0 01/01/17 09/17/19 History melatonin 10 mg PO BEDTIME 10/29/17 09/17/19 History polyethylene glycol 3350 17 gm PO DAILY 10/29/17 09/17/19 History vit C,I-Ua-bedgd-lutein-zeaxan 1 tab PO BID #0 10/29/17 09/17/19 History [PreserVision AREDS-2] Disabled Parking Placard #1 ea 05/04/18 09/17/19 Rx cyclosporine 0.05 % eye drops in a 1 drop EYE-BOTH BID each 05/04/18 09/17/19 History dropperette aspirin 81 mg PO DAILY 01/20/19 09/17/19 History cholecalciferol (vitamin D3) 2,000 unit PO DAILY 01/20/19 09/17/19 History [Vitamin D3] levothyroxine 75 mcg tablet 75 mcg PO DAILY #90 tab 04/17/19 09/17/19 Rx clopidogrel 75 mg PO DAILY 04/18/19 09/17/19 History rosuvastatin 20 mg tablet See Rx Instructions .ROUTE 06/13/19 09/17/19 Rx .COMPLEX #90 tablet metoprolol tartrate 25 mg tablet See Rx Instructions .ROUTE 07/12/19 09/17/19 Rx .COMPLEX #90 tab gabapentin 400 mg capsule 400 mg PO BID #180 cap 05/18/20 06/28/20 Rx gabapentin 800 mg tablet 800 mg PO BEDTIME #90 tab 08/07/19 09/17/19 Rx mirtazapine 7.5 mg tablet 7.5 - 15 mg PO BEDTIME #180 tab 09/04/19 09/17/19 Rx Allergies Allergy/AdvReac Type Severity Reaction Status Date / Time ampicillin [AMPICILLIN] Allergy Severe BLOODY Verified 04/26/19 13:49 DIARRHEA Iodinated Contrast Media Allergy Severe ANAPHYLAXIS Verified 04/26/19 13:49 [IODINATED CONTRAST MEDIA - IV DYE] oxycodone [OXYCODONE] AdvReac Intermediate MAKES ME Verified 09/17/19 15:39 MEAN, CHANGE OF PERSONALITY adhesive [ADHESIVE] AdvReac Mild REDNESS Verified 04/26/19 13:49 Review of Systems Review of Systems Narrative: A 10 point review of systems is negative except as noted in the HPI Exam Vital Signs (past 8 hours): - 09/17/19 13:55 09/17/19 14:30 09/17/19 15:43 Temperature 98.2 F Pulse Rate 91 H 92 H 91 H Respiratory Rate 20 15 19 Blood Pressure 140/70 Blood Pressure [Left Arm] Blood Pressure [Right Arm] 195/83 H 198/85 H Pulse Oximetry 96 97 96 09/17/19 15:58 09/17/19 16:00 09/17/19 16:30 Temperature Pulse Rate 92 H 90 Respiratory Rate 16 16 Blood Pressure Blood Pressure [Left Arm] 188/81 H 186/85 H 179/84 H Blood Pressure [Right Arm] 168/77 H 164/74 H Pulse Oximetry 98 09/17/19 16:45 09/17/19 16:58 09/17/19 17:10 Temperature 97.9 F 98.3 F 98.5 F Pulse Rate 89 90 96 H Respiratory Rate 16 16 19 Blood Pressure 156/77 H 171/81 H 184/87 H Blood Pressure [Left Arm] Blood Pressure [Right Arm] Pulse Oximetry 94 Oxygen Delivery Method Room Air Oxygen Flow Rate 0 Narrative Exam Narrative: General-no acute distress, elderly woman HEENT-moist mucous membranes, no scleral icterus Neck-supple, no lymphadenopathy Chest- non labored respirations, clear to auscultation bilaterally Cardiac-regular rate no peripheral edema Abdomen-soft, mild epigastric tenderness Extremities-warm, well perfused Neurological-alert and oriented Objective Labs Result Diagrams: 09/17/19 14:15 09/17/19 14:15 Labs: Laboratory Results - last 24 hr 09/17/19 09/17/19 09/17/19 14:15 14:15 14:15 WBC 5.1 RBC 2.81 L Hgb 5.4 L* Hct 17.9 L* MCV 63.9 L MCH 19.3 L MCHC 30.3 RDW 19.8 H Plt Count 208 Neut % (Auto) 57.3 Lymph % (Auto) 33.7 [place] % (Auto) 6.5 Eos % (Auto) 1.5 L Baso % (Auto) 1.0 Neut # (Auto) 2900 Lymph # (Auto) 1700 [place] # (Auto) 300 Eos # (Auto) 100 Baso # (Auto) 100 RBC Morphology See below Polychromasia 1+ H Hypochromasia 2+ H Microcytosis 2+ H PT INR APTT Sodium 133 L Potassium 4.4 Chloride 99 Carbon Dioxide 28 BUN 23 H Creatinine 0.48 L Estimated GFR > 60.0 BUN/Creatinine Ratio 47.9 H Glucose 103 Lactate Calcium 9.5 Total Bilirubin 0.3 AST 25 ALT 11 Alkaline Phosphatase 75 Total Creatine Kinase CK-MB (CK-2) CK-MB (CK-2) Rel Index Troponin I Total Protein 6.5 Albumin 4.2 Globulin 2.3 Albumin/Globulin Ratio 1.8 Procalcitonin < 0.05 COVID-19 PCR Blood Type Antibody Screen Crossmatch 09/17/19 09/17/19 09/17/19 14:15 14:15 14:15 WBC RBC Hgb Hct MCV MCH MCHC RDW Plt Count Neut % (Auto) Lymph % (Auto) [place] % (Auto) Eos % (Auto) Baso % (Auto) Neut # (Auto) Lymph # (Auto) [place] # (Auto) Eos # (Auto) Baso # (Auto) RBC Morphology Polychromasia Hypochromasia Microcytosis PT 12.1 INR 1.1 APTT 30 D Sodium Potassium Chloride Carbon Dioxide BUN Creatinine Estimated GFR BUN/Creatinine Ratio Glucose Lactate 1.0 Calcium Total Bilirubin AST ALT Alkaline Phosphatase Total Creatine Kinase 42 CK-MB (CK-2) TNP CK-MB (CK-2) Rel Index TNP Troponin I < 0.012 Total Protein Albumin Globulin Albumin/Globulin Ratio Procalcitonin COVID-19 PCR Blood Type Antibody Screen Crossmatch 09/17/19 09/17/19 15:10 16:25 WBC RBC Hgb Hct MCV MCH MCHC RDW Plt Count Neut % (Auto) Lymph % (Auto) [place] % (Auto) Eos % (Auto) Baso % (Auto) Neut # (Auto) Lymph # (Auto) [place] # (Auto) Eos # (Auto) Baso # (Auto) RBC Morphology Polychromasia Hypochromasia Microcytosis PT INR APTT Sodium Potassium Chloride Carbon Dioxide BUN Creatinine Estimated GFR BUN/Creatinine Ratio Glucose Lactate Calcium Total Bilirubin AST ALT Alkaline Phosphatase Total Creatine Kinase CK-MB (CK-2) CK-MB (CK-2) Rel Index Troponin I Total Protein Albumin Globulin Albumin/Globulin Ratio Procalcitonin COVID-19 PCR Negative Blood Type A Positive Antibody Screen Negative Crossmatch See Detail Assessment & Plan Assessment and plan (1) Acute GI bleeding: Status: Acute Assessment & Plan narrative: 78-year-old woman with symptomatic anemia admitted to the hospital with a GI bleed. She is hemodynamically stable initial hematocrit 18 receiving 2 units of packed red blood cells follow-up hematocrit pending. She takes aspirin and was recently begun on Plavix and has mild epigastric pain and I suspect she has an upper GI bleed. I told her that I recommend that we proceed with esophagoduodenoscopy. I discussed the risks of the procedure with her including hemorrhage, perforation, infection, misdiagnosis, need for further procedure. Her medical comorbidities are significant for COPD on home oxygen, prior CVA, prior neck radiation for non-Hodgkin's lymphoma and recent right upper lobe lung cancer undergoing radiation therapy. Given her multiple comorbidities I think that the case would be best performed with an anesthesiologist for management of her sedation. -NPO after midnight -Protonix -hold aspirin and Plavix
[2019-09-17 21:23] LABS: Hematocrit 21.4 % (36-46)
[2019-09-17 21:25] LABS: Hemoglobin 6.8 g/dL (12.0-16.0)
--- NOTE | 2019-09-17 21:45 | PM.HP.1 ---
History of Present Illness History of Present Illness Date Patient Seen: 09/17/19 Time Patient Seen: 20:00 Chief complaint: increasing weakness Narrative: Fabien Xiong is a very pleasant 78-year-old female with a history of non-Hodgkin's disease currently in remission however with a new diagnosis of lung cancer diagnosed approximately 3 months ago. She presents to the emergency department with profound weakness and shortness of breath. She has been undergoing radiation treatment for upper lobe lung cancer and states that ordered lesions had been shown to decrease in size however she has a new lung lesion that she has opted not to pursue radiation treatment for. In the past she developed a radiation induced esophagitis which made it difficult for her to swallow and also caused her dry mouth. The patient does have chronically dry throat and mouth, recently induce shortness of breath, chronic constipation that she takes MiraLax for, and has bilateral extremity tingling that she has had for number of years. She denies fever sweats or chills, changes in her vision, chest pain, dysuria, abdominal pain, nausea or vomiting, or diarrhea. She denies seeing dark or bloody stool. The patient has had history of aortic valve replacement with a bioprosthetic valve in 2010 for which she has been taking aspirin and Plavix. She has also had history of cerebellar CVA in 2018. She has had a history of ?blood clots? after her pregnancies however has never had 1 during her period of having non-Hodgkin's lymphoma or currently. In the emergency department she was found to be extremely anemic with a hemoglobin of 5.4 and hematocrit of 17.9. They initiated her on 2 units PRBC, repeat H&H is 6.8 and 21.4 respectively. She was found to be guiac positive. Patient's CBC is with a WBC of 5.1, RBC: 2.81, hemoglobin: 6.8, hematocrit: 21.4, and a platelet count of 2 await. Her sodium is 133, potassium: 4.4, chloride: 99, CO2: 28, creatinine: 0.48, BUN: 23, GFR: Greater than 60. Her lactate was normal at 1.0, calcium: 9.5, cardiac markers were normal, and her COVID-19 test was negative. Chest x-ray done today indicated a right-sided apical mass that had been previously seen on CT with severe pulmonary hypertension. 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) GERD (gastroesophageal reflux disease) (Chronic) History of aortic valve replacement with bioprosthetic valve (Inactive 10/23/10) Hyperlipidemia (Acute) Hypertension (Acute) Hypothyroidism (Acute) Macular degeneration (Acute) Mitral valve disorder (Chronic) Non Hodgkin's lymphoma (Inactive) Osteoarthritis (Chronic 07/23/10) Osteoporosis (Chronic ~2015) Peripheral neuropathy (Chronic) Pulmonary embolism (Resolved) Raynaud's disease (Chronic 05/17/12) 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 (Acute ~05/2019) Surgical History H/O total hysterectomy (Acute) History of appendectomy (Acute) History of cataract removal with insertion of prosthetic lens History of cholecystectomy (Acute) History of lumpectomy of left breast (Resolved) History of lung surgery (Resolved 1993) Hx of aortic valve replacement (Resolved 07/2013) Hx of fusion of cervical spine (Resolved ~03/2004) Hx of hysterectomy (Resolved ~04/1987) Status post cholecystectomy Family & Social History Family History Mother Cancer Colon cancer Father Lung cancer Brother Lung cancer Sister CVA (cerebral vascular accident) Daughter Myocardial infarction Social History: household members tenant in downstairs apartment Prior Living Arrangements House Safety & Behavioral: Feels Safe in Current Yes Environment Been Physically Hurt or No Threatened By a Person Suicidal Ideation Description None Suicide Plan Description No Plan Tobacco & Substance use: Tobacco type cigarettes Smoking Status Former smoker alcohol intake denies alcohol intake frequency Substance Use Type does not use Meds Home Medications and Allergies Home Medications Medication Instructions Recorded Confirmed Type multivitamin [Multiple Vitamins] 1 tab PO DAILY #0 01/01/17 09/17/19 History melatonin 10 mg PO BEDTIME 10/29/17 09/17/19 History polyethylene glycol 3350 17 gm PO DAILY 10/29/17 09/17/19 History vit C,W-Gn-xcwun-lutein-zeaxan 1 tab PO BID #0 10/29/17 09/17/19 History [PreserVision AREDS-2] Disabled Parking Placard #1 ea 05/04/18 09/17/19 Rx cyclosporine 0.05 % eye drops in a 1 drop EYE-BOTH BID each 05/04/18 09/17/19 History dropperette aspirin 81 mg PO DAILY 01/20/19 09/17/19 History cholecalciferol (vitamin D3) 2,000 unit PO DAILY 01/20/19 09/17/19 History [Vitamin D3] levothyroxine 75 mcg tablet 75 mcg PO DAILY #90 tab 04/17/19 09/17/19 Rx clopidogrel 75 mg PO DAILY 04/18/19 09/17/19 History rosuvastatin 20 mg tablet See Rx Instructions .ROUTE 06/13/19 09/17/19 Rx .COMPLEX #90 tablet metoprolol tartrate 25 mg tablet See Rx Instructions .ROUTE 07/12/19 09/17/19 Rx .COMPLEX #90 tab gabapentin 400 mg capsule 400 mg PO BID #180 cap 08/07/19 09/17/19 Rx gabapentin 800 mg tablet 800 mg PO BEDTIME #90 tab 08/07/19 09/17/19 Rx mirtazapine 7.5 mg tablet 7.5 - 15 mg PO BEDTIME #180 tab 09/04/19 09/17/19 Rx Allergies Allergy/AdvReac Type Severity Reaction Status Date / Time ampicillin [AMPICILLIN] Allergy Severe BLOODY Verified 04/26/19 13:49 DIARRHEA Iodinated Contrast Media Allergy Severe ANAPHYLAXIS Verified 04/26/19 13:49 [IODINATED CONTRAST MEDIA - IV DYE] oxycodone [OXYCODONE] AdvReac Intermediate MAKES ME Verified 09/17/19 15:39 MEAN, CHANGE OF PERSONALITY adhesive [ADHESIVE] AdvReac Mild REDNESS Verified 04/26/19 13:49 Review of Systems Review of Systems ROS: Yes All systems reviewed with the patient and are negative except as otherwise documented Exam Vital Signs (past 8 hours): - 09/17/19 13:55 09/17/19 14:30 09/17/19 15:43 Temperature 98.2 F Pulse Rate 91 H 92 H 91 H Respiratory Rate 20 15 19 Blood Pressure 140/70 Blood Pressure [Left Arm] Blood Pressure [Right Arm] 195/83 H 198/85 H Pulse Oximetry 96 97 96 09/17/19 15:58 09/17/19 16:00 09/17/19 16:30 Temperature Pulse Rate 92 H 90 Respiratory Rate 16 16 Blood Pressure Blood Pressure [Left Arm] 188/81 H 186/85 H 179/84 H Blood Pressure [Right Arm] 168/77 H 164/74 H Pulse Oximetry 98 09/17/19 16:45 09/17/19 16:58 09/17/19 17:10 Temperature 97.9 F 98.3 F 98.5 F Pulse Rate 89 90 96 H Respiratory Rate 16 16 19 Blood Pressure 156/77 H 171/81 H 184/87 H Blood Pressure [Left Arm] Blood Pressure [Right Arm] Pulse Oximetry 94 Oxygen Delivery Method Room Air Oxygen Flow Rate 0 Narrative Exam Narrative: Gen: Alert, oriented, well-developed 78 y.o. female, appears fatigued HEENT: normocephalic, atraumatic, conjunctiva clear, sclera non-icteric, oral mucosa pink and moist Neck: supple, full ROM, no JVD, trachea is midline Resp: Lungs CTA, non-labored breathing CV: RRR, no murmur or rubs Abd: soft, non-tender, normoactive BTs Skin: Pale, no lesions or rashes, dry and intact, evidence of significant prior sun exposure Neuro: Alert and oriented X 4 w/no focal deficits. Speech clear and coherent. Extremities: moves all 4 extremities, is ambulatory, negative Arnaldo?s sign Psyche: very pleasant, normal mood and affect. Objective Labs Result Diagrams: 09/17/19 21:00 09/17/19 14:15 Labs: Laboratory Results - last 24 hr 09/17/19 09/17/19 09/17/19 14:15 14:15 14:15 WBC 5.1 RBC 2.81 L Hgb 5.4 L* Hct 17.9 L* MCV 63.9 L MCH 19.3 L MCHC 30.3 RDW 19.8 H Plt Count 208 Neut % (Auto) 57.3 Lymph % (Auto) 33.7 [place] % (Auto) 6.5 Eos % (Auto) 1.5 L Baso % (Auto) 1.0 Neut # (Auto) 2900 Lymph # (Auto) 1700 [place] # (Auto) 300 Eos # (Auto) 100 Baso # (Auto) 100 RBC Morphology See below Polychromasia 1+ H Hypochromasia 2+ H Microcytosis 2+ H PT INR APTT Sodium 133 L Potassium 4.4 Chloride 99 Carbon Dioxide 28 BUN 23 H Creatinine 0.48 L Estimated GFR > 60.0 BUN/Creatinine Ratio 47.9 H Glucose 103 Lactate Calcium 9.5 Total Bilirubin 0.3 AST 25 ALT 11 Alkaline Phosphatase 75 Total Creatine Kinase CK-MB (CK-2) CK-MB (CK-2) Rel Index Troponin I Total Protein 6.5 Albumin 4.2 Globulin 2.3 Albumin/Globulin Ratio 1.8 Procalcitonin < 0.05 COVID-19 PCR Blood Type Antibody Screen Crossmatch 09/17/19 09/17/19 09/17/19 14:15 14:15 14:15 WBC RBC Hgb Hct MCV MCH MCHC RDW Plt Count Neut % (Auto) Lymph % (Auto) [place] % (Auto) Eos % (Auto) Baso % (Auto) Neut # (Auto) Lymph # (Auto) [place] # (Auto) Eos # (Auto) Baso # (Auto) RBC Morphology Polychromasia Hypochromasia Microcytosis PT 12.1 INR 1.1 APTT 30 D Sodium Potassium Chloride Carbon Dioxide BUN Creatinine Estimated GFR BUN/Creatinine Ratio Glucose Lactate 1.0 Calcium Total Bilirubin AST ALT Alkaline Phosphatase Total Creatine Kinase 42 CK-MB (CK-2) TNP CK-MB (CK-2) Rel Index TNP Troponin I < 0.012 Total Protein Albumin Globulin Albumin/Globulin Ratio Procalcitonin COVID-19 PCR Blood Type Antibody Screen Crossmatch 09/17/19 09/17/19 09/17/19 15:10 16:25 21:00 WBC RBC Hgb 6.8 L* Hct 21.4 L MCV MCH MCHC RDW Plt Count Neut % (Auto) Lymph % (Auto) [place] % (Auto) Eos % (Auto) Baso % (Auto) Neut # (Auto) Lymph # (Auto) [place] # (Auto) Eos # (Auto) Baso # (Auto) RBC Morphology Polychromasia Hypochromasia Microcytosis PT INR APTT Sodium Potassium Chloride Carbon Dioxide BUN Creatinine Estimated GFR BUN/Creatinine Ratio Glucose Lactate Calcium Total Bilirubin AST ALT Alkaline Phosphatase Total Creatine Kinase CK-MB (CK-2) CK-MB (CK-2) Rel Index Troponin I Total Protein Albumin Globulin Albumin/Globulin Ratio Procalcitonin COVID-19 PCR Negative Blood Type A Positive Antibody Screen Negative Crossmatch See Detail Assessment & Plan Assessment & Plan narrative: Fabien Xiong will be admitted as an inpatient for further management of symptomatic anemia and will undergo an EGD on 09/17. Symptomatic Anemia, acute, present on admission -She received 2 units PRBC in the ED and will receive another unit on the medical surgical floor and have a post 3rd unit tranfusion H and H done. -Goal Hemoglobin of 8 given her cardiovascular risk -Dr. Lance has seen the patient on the floor and plans to do an EGD tomorrow -Holding ASA and plavix -NPO after midnight Lung cancer, active, present on admission -She has stopped radiation treatment due to potential side effects of radiation therapy on previous radiation therapy site -Patient was previously followed by Dr. Carrasco, radiation oncologist who has now referred her to Dr. Wiggins for medical management History of a cerebellar CVA in 2018 and aortic valve replacement -See above Essential hypertension, not well controlled, present on admission with a bp of 184/87 -Patient discontinued metoprolol due to making her dizzy -bp is now 123/67 and prn hydralazine was cancelled -Will start lisinopril with parameters tomorrow Hyperlipidemia, chronic, present on admission -continue rosuvastatin 20 mg p.o. 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 Generalized neuropathy, chronic and active -continue home dose of gabapentin Hypothyroidism chronic and active -continue home dose of levothyroxine 75 mcg p.o. in the morning Insomnia, chronic and active -continue home doses of mirtazapine 7.5 mg at bedtime -melatonin 10 mg p.o. at bedtime, this will likely be substituted for 9 mg at bedtime Consults: Dr. Lance, consult and involvement is appreciated. Patient is inpatient status as [] stay is likely to exceed 2 midnights. FEN: Saline lock, 2 gram sodium diet, NPO past midnight, BMP in the am. VTE prophylaxis: Bilateral SCDs pharmacological VTE prophylaxis is contraindicated given the patient's current and likely active bleeding Dispo: Unknown at this time Code Status: DNR/DNI as discussed with patient COVID-19 COVID-19 status: Negative Result date/Date tested (Pos, Neg/Pending): 09/17/19 Quality VTE Deep Vein Thrombosis/Pulmonary Embolism Present on Admission: No
--- NOTE | 2019-09-17 21:45 | PC.NURSE ---
H/H reported to PEYTON Barton as 6.8 and 21.4 at 2134. New orders.
[2019-09-17] MEDS: ACETAMINOPHEN 325 MG TABLET 650 MG PO (21:55)
[2019-09-17] MEDS: GABAPENTIN 400 MG CAPSULE PO (21:56)
--- NOTE | 2019-09-17 22:41 | PC.NURSE ---
Pt arrived on unit at approx 1815 from ED. She was and is A and O x 4. Her daughter was with her she is an RN at [employer] in [facility]. VSS. Pt able to eat take out with daughter and knows she is NPO after 0000 for endoscopy tomorrow. He has clear LS and regular HR. NO complaints of nausea, she had a small formed BM. She is voidinf clear yellow urine in BR using a FWW and SBA x 1. She received one unit of PRBS in ER, finished on unit and is now receiving a second for H/H of 6.8 and 21.4. Pt is tolerating blood well.
[2019-09-18] VITALS (10 sets, daily range): BP systolic 120–159; BP diastolic 64–78; PULSE 78–87; RESP 16–23; TEMP 36.2–37.4; O2SAT 90–99; BMI 24.0
[2019-09-18] MEDS: GABAPENTIN 400 MG CAPSULE 800 MG PO (00:16)
[2019-09-18] MEDS: MIRTAZAPINE 7.5 MG TABLET PO (00:16)
[2019-09-18 06:06] LABS: BUN Creatinine Ratio 29.6 (6-22); Blood Urea Nitrogen 16 mg/dL (7-17); Calcium 8.9 mg/dL (8.4-10.2); Carbon Dioxide 29 mmol/L (22-32); Chloride 102 mmol/L (98-107); Estimated Glomerular Filt Rate > 60.0 mL/min (>60); Glucose 88 mg/dL (80-110); HEMOLYSIS < 15 (0-50); Magnesium 2.2 mg/dL (1.6-2.3); Potassium 4.1 mmol/L (3.4-5.1); Sodium 134 mmol/L (137-145)
[2019-09-18 06:08] LABS: Add Manual Diff / Slide Review NO; Basophils Absolute Auto 0 /uL (0-100); Basophils Percent Auto 0.9 % (0-2); Eosinophils Absolute Auto 100 /uL (0-450); Eosinophils Percent Auto 2.5 % (2-4); Hemoglobin 7.6 g/dL (12.0-16.0); Lymphocytes Absolute Auto 1300 /uL (1100-4500); Lymphocytes Percent Auto 25.1 % (25-40); Mean Corpuscular HGB Conc 32.3 % (30-36); Mean Corpuscular Hemoglobin 22.5 PG (26-34); Mean Corpuscular Volume 69.6 fL (80-100); Monocytes Absolute Auto 500 /uL (0-900); Neutrophils Absolute Auto 3100 /uL (1500-7000); Neutrophils Percent Auto 61.5 % (50-75); Platelet Count 187 X10^3/uL (150-400); Red Blood Cell Count 3.39 X10^6/uL (4.0-5.2); Red Cell Distribution Width 24.6 % (11.6-14.8)
[2019-09-18 06:09] LABS: Hematocrit 23.6 % (36-46)
[2019-09-18 06:37] LABS: Polychromasia 1+
[2019-09-18 06:38] LABS: Anisocytosis 2+
[2019-09-18 06:39] LABS: Hypochromasia 2+
[2019-09-18] MEDS: PANTOPRAZOLE 40 MG VIAL IV (08:49)
--- NOTE | 2019-09-18 09:17 | PC.NURSE ---
Pt left rm 218 via w/c with SERVICES TECH at 0917 in no distress.
[2019-09-18] MEDS: LACTATED RINGERS 1,000 ML 42 ML IV (09:40)
--- NOTE | 2019-09-18 10:46 | PM.OP.ENDO ---
Operative Date/Time/Diagnoses Date of procedure: 09/18/19 Time of procedure: 10:46 Pre-op diagnosis: Anemia Post-op diagnosis: same Procedure & Clinicians Study performed: Esophagoduodenoscopy Same procedure as scheduled: Yes Indications: 78-year-old woman presented to the hospital with epigastric pain symptomatic anemia was recently started on aspirin and Plavix Surgeon: John Lance Procedure Notes SCOAP/Timeout: Performed Procedure in detail: Patient was placed supine on the bed. Monitored anesthesia care was provided by the anesthesiologist. A bite block was placed. the scope was inserted into the mouth and advanced through the esophagus and into the stomach. The pylorus was intubated and the duodenum was normal to the 2nd portion The scope was retroflexed within the stomach and there was no hiatal hernia. There was moderate diffuse gastritis without ulcers or active bleeding. The scope was withdrawn into the esophagus the Z line was seen at 35 cm from the incisions. There was no baker's esophagitis or masses or strictures. Stomach was desufflated and scope removed. Patient tolerated procedure well. Findings: gastritis Impression: gastritis Post-procedure Recommendations: Start medication(s) (protonix) Disposition: Acute Care
--- NOTE | 2019-09-18 10:50 | SUR.PHASEII ---
Patient arrived from endo awake and alert, in phase II per Dr. Gonzalez.
--- NOTE | 2019-09-18 10:56 | SUR.PHASEII ---
Report called to Haroldo
--- NOTE | 2019-09-18 10:58 | SUR.PHASEII ---
Upper and lower denture in place. Glasses with patient. Patient transferred to the floor by [place]yetta.
--- NOTE | 2019-09-18 11:14 | PC.NURSE ---
Addendum entered by Haroldo Mendez R.N. 09/18/19 14:22: Pt was escorted by GHOST WRITER to POV for discharge to home with all belongings. Pt was in no distress. 1328 d/c time. Addendum entered by Haroldo Mendez R.N. 09/18/19 13:09: Daughter at bedside for d/c teaching. Dc packet provided. Reviewed new RX, dx, stroke education, need for fu appt and lab work. Pt states she has a f/u appt with a PCP in [place] already scheduled and declines need to set up new appt. Pt and daughter verbalize understanding of d/c teaching. PIV removed. Tele removed. Addendum entered by Haroldo Mendez R.N. 09/18/19 11:37: reviewed EKG with Dr. Desai- NSR. Chest tightness felt to be more consistent with scope procedure vs cardiac origin. Pt to d/c home today. Original Note: 1105- Rec'd pt to room 218 via w/c from PACU. ASSOCIATE PROFESSOR OF COUNSELING states pt began c/o chest tightness in the elevator. Pt locates chest tightness to midsternal area. She denies overt pain. She denies worsening shortness of breath over her usual shortness of breath. Placed order for STAT EKG per protocol and notified RT of order. Notified Dr. Desai of new onset chest tightness.
--- NOTE | 2019-09-18 11:26 | CM.DANOTE ---
DCP: Case received, EMR reviewed and met with patient. Introduced self and role. Was able to meet with patient and obtain information from her regarding her baseline activity level, and living situation. DCP assessment completed with information currently available. Patient is a 78 year old female who admitted yesterday afternoon to the care of the hospitalist team. PCP: Arabella MORGAN. Payer: confirmed: Medicare/[employer]. Patient came to the hospital via private vehicle secondary to her having increased weakness. Patient was diagnosed with GI bleed. Patient had noted positive guiac, and had blood transfusion. She had EGD today, and is currently having EKG. Patient has history of lung cancer, and non-hodgkens lymphoma. Met with patient in her room. She had just come back from her procedure. She is alert and oriented, pleasant. She is a , lives alone outside of [place]. She stated that she does drive, but has not driven lately. She does not use any DME supplies. She has a daughter named Kenyetta, and she lives in [place]. Stated that she does have neighbors that she know if if she needs anything. P: Patient is to be discharged home today, after tests are complete. Roberta Armijo, RN/[facility]
--- NOTE | 2019-09-18 11:49 | PM.DS.1 ---
History of Present Illness History of Present Illness Date Patient Seen: 09/17/19 Chief complaint: increasing weakness Narrative: Written by Joi MORGAN: Fabien Xiong is a very pleasant 78-year-old female with a history of non-Hodgkin's disease currently in remission however with a new diagnosis of lung cancer diagnosed approximately 3 months ago. She presents to the emergency department with profound weakness and shortness of breath. She has been undergoing radiation treatment for upper lobe lung cancer and states that ordered lesions had been shown to decrease in size however she has a new lung lesion that she has opted not to pursue radiation treatment for. In the past she developed a radiation induced esophagitis which made it difficult for her to swallow and also caused her dry mouth. The patient does have chronically dry throat and mouth, recently induce shortness of breath, chronic constipation that she takes MiraLax for, and has bilateral extremity tingling that she has had for number of years. She denies fever sweats or chills, changes in her vision, chest pain, dysuria, abdominal pain, nausea or vomiting, or diarrhea. She denies seeing dark or bloody stool. The patient has had history of aortic valve replacement with a bioprosthetic valve in 2010 for which she has been taking aspirin and Plavix. She has also had history of cerebellar CVA in 2018. She has had a history of ?blood clots? after her pregnancies however has never had 1 during her period of having non-Hodgkin's lymphoma or currently. In the emergency department she was found to be extremely anemic with a hemoglobin of 5.4 and hematocrit of 17.9. They initiated her on 2 units PRBC, repeat H&H is 6.8 and 21.4 respectively. She was found to be guiac positive. Patient's CBC is with a WBC of 5.1, RBC: 2.81, hemoglobin: 6.8, hematocrit: 21.4, and a platelet count of 2 await. Her sodium is 133, potassium: 4.4, chloride: 99, CO2: 28, creatinine: 0.48, BUN: 23, GFR: Greater than 60. Her lactate was normal at 1.0, calcium: 9.5, cardiac markers were normal, and her COVID-19 test was negative. Chest x-ray done today indicated a right-sided apical mass that had been previously seen on CT with severe pulmonary hypertension. Discharge Providers Provider Date of admission: 09/17/19 16:51 Discharge Date: 09/18/19 Primary care physician: EDDIE Cheema Consults: 09/17/19 16:19 Consult to General Surgery Stat Comment: Consulting Provider: John Lance Reason for consultation: gi bleed Has provider been notified: Yes 09/17/19 20:47 Consult to Physician Routine Comment: Consulting Provider: John Lance Reason for consultation: GI bleed, symptomatic anemia Has provider been notified: Yes Discharge provider: Dorothy Desai DO Summary Hospital Course Discharge Diagnosis: 1. Symptomatic anemia, secondary to GI bleed, present on admission. Resolved. 2. Lung cancer, chronic, present on admission. Presumed stable. 3. History of a cerebellar CVA in 2018 and aortic valve replacement. 4. Hypertension, chronic, present on admission. Stable. 5. Hyperlipidemia, chronic, present on admission. Stable. 6. Hyporhidrosis of eyes, chronic, present on admission. Stable. 7. Peripheral neuropathy, chronic, present on admission. Stable. 8. Hypothyroidism, chronic, present on admission. Stable. 9. Insomnia, chronic, present on admission. Stable. Hospital Course: Fabien Xiong is a 78-year-old female with a past medical history sugnificant for CVA, aortic valve replacement, hypertension, hyperlipidemia, GERD, radiation induced esophagitis, history of non-Hodgkin's disease currently in remission however with a new diagnosis of lung cancer diagnosed approximately 3 months ago who presented to the ED with profound weakness and shortness of breath. 1. Symptomatic anemia, secondary to GI bleed, present on admission. Resolved. -Patient presented with progressive weakness and shortness of breath over 1 month. -Initial hemoglobin 5.4. Received 3 units PRBC with appropriate compensation and hemoglobin now 7.6. Transfusion goal < 7.5 due to cardiovascular disease. -Held aspirin and plavix. Continued to hold plavix and restarted aspirin 81 mg daily at time of discharge and as below. -Continued protonix 40 mg twice daily. -Consulted general surgery, Dr. Lance, who preformed EGD which demonstrated diffuse gastritis which was felt to be source of bleeding and recommended holding Plavix (until follow-up with PCP), continuing aspirin 81 mg daily and protonix 40 mg twice daily, and outpatient colonoscopy. 2. Lung cancer, chronic, present on admission. Presumed stable. -She has stopped radiation treatment due to potential side effects of radiation therapy on previous radiation therapy site. -Patient was previously followed by radiation oncology, Dr. Carrasco. Patient has now been referred oncology, Dr. Wiggins for medical management and continue outpatient follow-up as previously scheduled. 3. History of a cerebellar CVA in 2018 and aortic valve replacement. -Restarted aspirin 81 mg daily at discharge and contninued to hold Plavix as above. 4. Hypertension, chronic, present on admission. Stable. -Held home metoprolol tartrate due to potential for hypotension from GI bleed and resumed at time of discharge. 5. Hyperlipidemia, chronic, present on admission. Stable. -Continue home rosuvastatin 20 mg daily at bedtime. 6. Hyporhidrosis of eyes, chronic, present on admission. Stable. -Continued home cyclosporin 0.05% 1 drop in both eyes twice daily. 7. Peripheral neuropathy, chronic, present on admission. Stable. -Continued home gabapentin 400 mg in the morning, 400 mg at noon and 800 mg at bedtime. 8. Hypothyroidism, chronic, present on admission. Stable. -TSH normal 1.88 in 03/2019. -Continued home levothyroxine 75 mcg daily. 9. Insomnia, chronic, present on admission. Stable. -Continued home mirtazapine 7.5 mg daily at bedtime and melatonin 10 mg daily at bedtime. Exam Vital Signs (past 8 hours): - 09/18/19 05:00 09/18/19 07:51 09/18/19 08:00 Temperature 97.4 F L 97.5 F L Pulse Rate 78 84 Respiratory Rate 17 20 Blood Pressure 149/75 H 142/77 H Pulse Oximetry 99 97 90 L 09/18/19 09:00 09/18/19 09:30 09/18/19 10:42 Temperature 97.1 F L 98.2 F Pulse Rate 84 81 Respiratory Rate 20 22 Blood Pressure 154/78 H 122/65 Pulse Oximetry 93 94 95 09/18/19 10:55 Temperature Pulse Rate 83 Respiratory Rate 23 Blood Pressure 158/72 H Pulse Oximetry 92 Oxygen Delivery Method Room Air Oxygen Flow Rate 0 Narrative Exam Narrative: General: Elderly female lying in bed and in no acute distress, well-developed, well-nourished, appropriately interactive. HEENT: Normocephalic, atraumatic. External ears without defect. Pupils equal, round, and reactive to light. Anicteric sclerae, moist conjunctivae, and no lid lag. Oropharynx free of erythema and cobble stoning with moist mucosa. Neck: Supple with full range of motion.. No lymphadenopathy or thyromegaly. Cardiovascular: Regular rate and rhythm without murmurs, rubs, or gallops appreciated. Pulmonary: Clear to auscultation bilaterally without crackles, wheezes, or rhonchi. Normal respiratory effort with no use of accessory muscles. Abdomen: Soft, bowel sounds present, nontender, nondistended. No hepatosplenomegaly or masses appreciated. Extremities: No clubbing, cyanosis, or edema. Skin: Normal temperature, turgor, and texture; no rash, ulcers, or subcutaneous nodules appreciated. Neurological: Cranial nerves grossly intact. Psychiatric: Normal mood and affect. Alert and oriented to person, place, and time. Objective Labs Result Diagrams: 09/18/19 05:22 09/18/19 05:22 Labs: Laboratory Results - last 24 hr 09/17/19 09/17/19 09/17/19 14:15 14:15 14:15 WBC 5.1 RBC 2.81 L Hgb 5.4 L* Hct 17.9 L* MCV 63.9 L MCH 19.3 L MCHC 30.3 RDW 19.8 H Plt Count 208 Neut % (Auto) 57.3 Lymph % (Auto) 33.7 Miller % (Auto) 6.5 Eos % (Auto) 1.5 L Baso % (Auto) 1.0 Neut # (Auto) 2900 Lymph # (Auto) 1700 Miller # (Auto) 300 Eos # (Auto) 100 Baso # (Auto) 100 RBC Morphology See below Polychromasia 1+ H Hypochromasia 2+ H Anisocytosis Microcytosis 2+ H PT INR APTT Sodium 133 L Potassium 4.4 Chloride 99 Carbon Dioxide 28 BUN 23 H Creatinine 0.48 L Estimated GFR > 60.0 BUN/Creatinine Ratio 47.9 H Glucose 103 Lactate Calcium 9.5 Magnesium Total Bilirubin 0.3 AST 25 ALT 11 Alkaline Phosphatase 75 Total Creatine Kinase CK-MB (CK-2) CK-MB (CK-2) Rel Index Troponin I Total Protein 6.5 Albumin 4.2 Globulin 2.3 Albumin/Globulin Ratio 1.8 Procalcitonin < 0.05 COVID-19 PCR Blood Type Antibody Screen Crossmatch 09/17/19 09/17/19 09/17/19 14:15 14:15 14:15 WBC RBC Hgb Hct MCV MCH MCHC RDW Plt Count Neut % (Auto) Lymph % (Auto) Miller % (Auto) Eos % (Auto) Baso % (Auto) Neut # (Auto) Lymph # (Auto) Miller # (Auto) Eos # (Auto) Baso # (Auto) RBC Morphology Polychromasia Hypochromasia Anisocytosis Microcytosis PT 12.1 INR 1.1 APTT 30 D Sodium Potassium Chloride Carbon Dioxide BUN Creatinine Estimated GFR BUN/Creatinine Ratio Glucose Lactate 1.0 Calcium Magnesium Total Bilirubin AST ALT Alkaline Phosphatase Total Creatine Kinase 42 CK-MB (CK-2) TNP CK-MB (CK-2) Rel Index TNP Troponin I < 0.012 Total Protein Albumin Globulin Albumin/Globulin Ratio Procalcitonin COVID-19 PCR Blood Type Antibody Screen Crossmatch 09/17/19 09/17/19 09/17/19 15:10 16:25 21:00 WBC RBC Hgb 6.8 L* Hct 21.4 L MCV MCH MCHC RDW Plt Count Neut % (Auto) Lymph % (Auto) Miller % (Auto) Eos % (Auto) Baso % (Auto) Neut # (Auto) Lymph # (Auto) Miller # (Auto) Eos # (Auto) Baso # (Auto) RBC Morphology Polychromasia Hypochromasia Anisocytosis Microcytosis PT INR APTT Sodium Potassium Chloride Carbon Dioxide BUN Creatinine Estimated GFR BUN/Creatinine Ratio Glucose Lactate Calcium Magnesium Total Bilirubin AST ALT Alkaline Phosphatase Total Creatine Kinase CK-MB (CK-2) CK-MB (CK-2) Rel Index Troponin I Total Protein Albumin Globulin Albumin/Globulin Ratio Procalcitonin COVID-19 PCR Negative Blood Type A Positive Antibody Screen Negative Crossmatch See Detail 09/18/19 09/18/19 05:22 05:22 WBC 5.0 RBC 3.39 L Hgb 7.6 L Hct 23.6 L MCV 69.6 L D MCH 22.5 L MCHC 32.3 RDW 24.6 H Plt Count 187 Neut % (Auto) 61.5 Lymph % (Auto) 25.1 Miller % (Auto) 10.0 Eos % (Auto) 2.5 Baso % (Auto) 0.9 Neut # (Auto) 3100 Lymph # (Auto) 1300 Miller # (Auto) 500 Eos # (Auto) 100 Baso # (Auto) 0 RBC Morphology See below Polychromasia 1+ H Hypochromasia 2+ H Anisocytosis 2+ H Microcytosis PT INR APTT Sodium 134 L Potassium 4.1 Chloride 102 Carbon Dioxide 29 BUN 16 Creatinine 0.54 Estimated GFR > 60.0 BUN/Creatinine Ratio 29.6 H Glucose 88 Lactate Calcium 8.9 Magnesium 2.2 Total Bilirubin AST ALT Alkaline Phosphatase Total Creatine Kinase CK-MB (CK-2) CK-MB (CK-2) Rel Index Troponin I Total Protein Albumin Globulin Albumin/Globulin Ratio Procalcitonin COVID-19 PCR Blood Type Antibody Screen Crossmatch Discharge Plan Discharge Plan Patient Disposition: Home Discharge comment: You are being discharged home. You have gastritis which likely caused slow bleeding over time. General surgery recommended stopping Plavix and continuing only aspirin 81 mg daily for stroke prevention. You have been prescribed omeprazole 40 mg twice daily for at least 4 weeks to heal your stomach. You should have an updated colonoscopy in the near future to ensure there is no lower source of bleeding. Please follow-up with your primary care provider, Arabella Patel, in the next 1 week regarding your hospitalization and repeat blood counts. Discharge orders & Medications Prescriptions: Continued Restasis 0.05 % dropperette 1 drop EYE-BOTH BID RF: 0 (DME) Disabled Parking Placard Qty: 1 RF: 0 multivitamin [Multiple Vitamins] 1 EACH tablet 1 tab PO DAILY Qty: 0 RF: 0 levothyroxine 75 mcg tablet 75 mcg PO DAILY Qty: 90 RF: 3 rosuvastatin 20 mg tablet See Rx Instructions .ROUTE .COMPLEX Qty: 90 RF: 3 metoprolol tartrate 25 mg tablet See Rx Instructions .ROUTE .COMPLEX Qty: 90 RF: 3 gabapentin 400 mg capsule 400 mg PO BID Qty: 180 RF: 3 gabapentin 800 mg tablet 800 mg PO BEDTIME Qty: 90 RF: 3 mirtazapine 7.5 mg tablet 7.5 - 15 mg PO BEDTIME Qty: 180 RF: 0 PreserVision AREDS-2 [id number] qc-koaf-cv-mg Capsule 1 tab PO BID Qty: 0 RF: 0 polyethylene glycol [id number] 527 GM powder 17 gm PO DAILY RF: 0 melatonin 10 mg Tablet 10 mg PO BEDTIME RF: 0 aspirin 81 mg Tablet,Delayed Release (Dr/Ec) 81 mg PO DAILY RF: 0 cholecalciferol (vitamin D3) [Vitamin D3] 2,000 unit Capsule 2,000 unit PO DAILY RF: 0 Discontinued clopidogrel 75 mg tablet 75 mg PO DAILY RF: 0 No Action omeprazole 40 mg capsule,delayed release(DR/EC) 40 mg PO BID Qty: 60 RF: 2 sennosides-docusate sodium [Senna-S] 8.6-50 mg Tablet 3 tab-cap PO DAILY Qty: 100 RF: 1 Follow up/Referrals: Arabella Patel ARNP [Primary Care Provider] - 1 Week Diet/Activity/Treatments Diet: Low-fat, Low-sodium and Low-cholesterol Activity: Activity as tolerated Visit Report/Discharge Packet Instructions: DI for Gastritis, Pantoprazole Visit Report Forms: Patient Portal/API, Stroke Signs & Symptoms Discharge Data Primary Care Provider: Arabella Patel Attending Provider: Dorothy Desai Admit Date/Time: 09/17/19 16:51 Discharges patient from system. Discharge Date/Time: 09/18/19 13:28 Quality VTE Deep Vein Thrombosis/Pulmonary Embolism Present on Admission: No
[2019-09-18] MEDS: polyethylene glycoL 3350 17 GM POWD.PACK PO (11:52)
[2019-09-18] MEDS: lisinopriL 10 MG TABLET PO (11:52)
[2019-09-18] MEDS: LEVOTHYROXINE 75 MCG TABLET PO (11:52)
[2019-09-18] MEDS: GABAPENTIN 400 MG CAPSULE PO (11:52)
== END 2019-09-18 13:28 | disposition home or self-care (01) ==
LOC: ED 16:05 → AC 16:52
PROVIDERS: Nurse Practitioner Family; Surgery; Admitting Provider Internal Medicine; Emergency Provider Emergency Medicine; Family Provider Physician Assistant; PCP Nurse Practitioner; Referring Provider Emergency Medicine; Visit Provider Internal Medicine
PROC: 0DJ08ZZ Inspection of Upper Intestinal Tract, Via Natural or Artificial Opening Endoscopic (ICD-10-PCS; CPT 43235; principal; 2019-09-18 10:00)
DX: K29.70 Gastritis, unspecified, without bleeding (principal); R53.1 Weakness; D64.9 Anemia, unspecified; R19.5 Other fecal abnormalities; J44.9 Chronic obstructive pulmonary disease, unspecified; Z99.81 Dependence on supplemental oxygen; Z79.01 Long term (current) use of anticoagulants; C34.11 Malignant neoplasm of upper lobe, right bronchus or lung; Z86.73 Personal history of transient ischemic attack (TIA), and cerebral infarction without residual deficits; Z87.891 Personal history of nicotine dependence; E03.9 Hypothyroidism, unspecified; F51.04 Psychophysiologic insomnia; G62.9 Polyneuropathy, unspecified; Z11.59 Encounter for screening for other viral diseases
CPT/HCPCS: 43235; 36415; 36430; 36592; 71046; 80048; 80053; 81003; 82550; 83605; 83735; 84145; 84484; 85014; 85018; 85025; 85610; 85730; 86850; 86900; 86901; 87040; 87635; 93005; 96374; 96376; 99285; G0378; P9016; C9113; J2704

== ENCOUNTER → 2019-12-07 09:05 | Outpatient (CLI) | payer MEDICARE, OTHER, SELFPAY ==
[2019-09-17 17:21] VITALS: BMI 24.0
--- NOTE | 2019-12-07 09:12 | DI.CT.S_ITS ---
PROCEDURE: CT CHEST WO CON INDICATIONS: Follow-up lung cancer and lymphoma TECHNIQUE: Noncontrast 5 mm thick sections acquired from the pulmonary apices to the posterior costophrenic angles. 1 mm lung window, 5 mm thick coronal and sagittal and 7 mm axial MIP reformats were then acquired. For radiation dose reduction, the following was used: automated exposure control, adjustment of mA and/or kV according to patient size. COMPARISON: [facility], [place], [place] CT FUSION SKULL 2 THIGH, 08/30/2019, 13:44. [facility], CT, CT ABDOMEN PELVIS WO CON, 01/17/2019, 23:28. [facility], CT, CT CHEST WO CON, 08/08/2019, 10:48. FINDINGS: Image quality: Excellent. Scattered subsegmental atelectasis and/or scarring. Spiculated right apical nodule grossly unchanged in size since PET-CT from 08/30/19 No focal consolidation. Overall unchanged appearance since 08/08/19. Scattered calcified granulomas. No pleural effusions or pneumothorax. Central and peripheral airways are patent and normal in caliber. Mediastinum: Heart size is normal. Coronary artery calcifications are present. No pericardial effusion. No mediastinal adenopathy by size criteria. Thoracic aorta and central pulmonary arteries are normal in size. Esophagus is normal in caliber. No hiatal hernia. Chronic left rib deformities. Diffuse osteopenia. 1.5 cm low-attenuation left adrenal nodule appears unchanged dating back to 01/17/19 IMPRESSION: Overall, grossly stable examination without specific evidence for progressive metastatic disease. Grossly unchanged size of right apical nodule described on the PET-CT from 08/30/19 however recommend continued close observation on subsequent surveillance studies to exclude indolent neoplasm (please see PET-CT report) Unchanged left adrenal nodule. Dictated by: Haroldo Barton M.D. on 12/07/2019 at 9:25 Approved by: Haroldo Barton M.D. on 12/07/2019 at 9:44
== END ==
PROVIDERS: Family Provider Physician Assistant; PCP Physician Assistant; Referring Provider Physician Assistant; Visit Provider Internal Medicine
DX: C34.11 Malignant neoplasm of upper lobe, right bronchus or lung; Z85.72 Personal history of non-Hodgkin lymphomas; R91.1 Solitary pulmonary nodule; E27.9 Disorder of adrenal gland, unspecified; I25.10 Atherosclerotic heart disease of native coronary artery without angina pectoris; M85.80 Other specified disorders of bone density and structure, unspecified site
CPT/HCPCS: 71250

== ENCOUNTER → 2020-03-26 11:23 | Outpatient (CLI) | payer MEDICARE, OTHER, SELFPAY ==
[2019-09-17 17:21] VITALS: BMI 24.0
--- NOTE | 2020-03-26 11:24 | DI.CT.S_ITS ---
PROCEDURE: CT CHEST WO CON INDICATIONS: Follow-up lung cancer TECHNIQUE: Noncontrast 5 mm thick sections acquired from the pulmonary apices to the posterior costophrenic angles. 1 mm lung window, 5 mm thick coronal and sagittal and 7 mm axial MIP reformats were then acquired. For radiation dose reduction, the following was used: automated exposure control, adjustment of mA and/or kV according to patient size. COMPARISON: [facility], CT, CT CHEST WO CON, 08/08/2019, 10:48. [facility], CT, CT CHEST WO CON, 03/23/2019, 10:39. [facility], CT, CT CHEST WO CON, 01/10/2018, 12:48. [place], [place], [place] FUSION SKULL 2 THIGH, 07/20/2018, 15:56. [facility], CT, CT ABDOMEN PELVIS WO CON, 04/18/2019, 19:17. [place], [place], [place] FUSION SKULL 2 THIGH, 04/19/2019, 17:03. [place], [place] PET CT FUSION SKULL 2 THIGH, 08/30/2019, 13:44. [facility], [place], XR CHEST 2V, 09/17/2019, 14:39. [facility], CT, CT CHEST WO CON, 12/07/2019, 9:09. FINDINGS: Image quality: Excellent. Lungs and pleura: There is a 9 mm nodule in the right upper lobe posterior medially, stable in size. A 1.1 x 1.9 cm spiculated masslike density in the right apex anteriorly, unchanged in size. There is a calcified granuloma in the left upper lobe. No new nodules. Bibasilar and lingula scars and atelectasis. There is moderate emphysema. No acute air space opacities. No pleural effusions or pneumothorax. Central and peripheral airways are patent and normal in caliber. Mediastinum: Heart size is normal. No pericardial effusion. There is a aortic valve prosthesis. Mild coronary artery calcification. No mediastinal adenopathy by size criteria. Thoracic aorta and central pulmonary arteries are normal in size. Severe aortic atherosclerosis. Esophagus is normal in caliber. No hiatal hernia. Bones and chest wall: Sternotomy. No suspicious bony lesions. No vertebral body compression fractures. No axillary or supraclavicular adenopathy by size criteria. Thyroid gland is normal. Abdomen: There are multiple calcified nodules in the liver, consistent with old granulomas. Unchanged left adrenal nodule measuring 1.2 x 2.0 cm, most likely a adrenal adenoma. Severe abdominal aortic atherosclerosis. IMPRESSION: 1. Stable 9 mm nodule in the right upper lobe posterior medially. 2. Stable 1.1 x 1.9 cm spiculated mass-like density in the right apex anteriorly. 3. No new suspicious nodules. 4. No lymphadenopathy. 5. Moderate emphysema. 6. Stable left adrenal nodule. Dictated by: Raghav Castillo M.D. on 03/26/2020 at 12:05 Approved by: Raghav Castillo M.D. on 03/26/2020 at 13:17
== END ==
PROVIDERS: Family Provider Physician Assistant; PCP Physician Assistant; Referring Provider Internal Medicine; Visit Provider Internal Medicine
DX: C34.11 Malignant neoplasm of upper lobe, right bronchus or lung (principal); E03.9 Hypothyroidism, unspecified; J43.9 Emphysema, unspecified; E27.9 Disorder of adrenal gland, unspecified
CPT/HCPCS: 71250

== ENCOUNTER → 2020-05-14 09:53 | Outpatient (CLI) | payer MEDICARE, OTHER, SELFPAY ==
[2019-09-17 17:21] VITALS: BMI 24.0
[2020-05-14 10:36] LABS: COVID19 -Nasal RAPID Negative (Negative)
== END ==
PROVIDERS: Family Provider Physician Assistant; PCP Nurse Practitioner; Visit Provider Surgery
DX: Z01.812 Encounter for preprocedural laboratory examination (principal); Z20.822 Contact with and (suspected) exposure to COVID-19
CPT/HCPCS: 87635; C9803

== ENCOUNTER 2020-05-15 06:33 | Day surgery (SDC) | payer MEDICARE, OTHER, SELFPAY ==
[2019-09-17 17:21] VITALS: BMI 24.0
[2020-05-15] VITALS (18 sets, daily range): BP systolic 119–199; BP diastolic 62–104; PULSE 78–94; RESP 11–19; TEMP 36.2–36.9; O2SAT 92–99; BMI 24.3; BMI 24.4
--- NOTE | 2020-05-15 | PATH_ITS ---
[facility] Accession Number: [id number] . 01 Material submitted: . PART A: duodenum - DUODENUM PART B: stomach - STOMACH PART C: esophagus - ESOPHAGUS PART D: cecum - CECAL POLYP PART E: colon - ASCENDING POLYP PART F: rectum - RECTAL POLYP . 02 Diagnosis: A. Duodenum, Biopsy: Duodenal mucosa with no diagnostic abnormality. Negative for active inflammation, features of sprue, dysplasia, or malignancy. . B. Stomach, Biopsy: Antral and body-type mucosa with mild chronic gastritis. No evidence of Helicobacter on H/E stain. Negative for intestinal metaplasia. Negative for dysplasia and malignancy. . C. Esophagus, Biopsy: Squamous epithelium with no diagnostic abnormality. Intraepithelial eosinophils are not increased. Negative for dysplasia and malignancy. . D. Cecum, Polyp, Biopsy: Tubular adenoma. . E. Ascending Colon, Polyp, Biopsy: Tubular adenoma. . F. Rectum, Polyp, Biopsy: Tubulovillous adenoma with focal high-grade dysplasia. Please see comment. No evidence of malignancy. MRV 05/17/2020 1459 Local . 02 Comment: Part B: An immunohistochemical stain will be performed to evaluate for Helicobacter organisms and the results reported as an addendum. . Part F: As part of routine quality control chemist, Dr. Nuñez also reviewed this case and agrees with the diagnosis. Although the deep biopsy edge appears uninvolved by dysplasia, fragmentation precludes complete evaluation of margins. Dr. Guadalupe gave preliminary results to Renea in Dr. Arellano's office on 05/17/2020. . 02 Electronically signed: . Renae Guadalupe MD, Pathologist NPI- [id number] . 01 Gross description: . Part A: DUODENUM: Received in formalin are 2 fragment(s) of briones, soft tissue measuring 0.1 x 0.1 x 0.1 cm to 0.2 x 0.2 x 0.2 cm submitted entirely in 1 cassette(s) Part B: STOMACH: Received in formalin are multiple fragment(s) of briones, soft tissue measuring 0.1 x 0.1 x 0.1 cm to 0.3 x 0.2 x 0.2 cm submitted entirely in 1 cassette(s) Part C: ESOPHAGUS: Received in formalin is 1 fragment(s) of briones, soft tissue measuring 0.8 x 0.2 x 0.2 cm submitted entirely in 1 cassette(s) Part D: CECAL POLYP: Received in formalin are 2 fragment(s) of briones, soft tissue measuring 0.2 x 0.2 x 0.2 cm to 0.4 x 0.3 x 0.2 cm submitted entirely in 1 cassette(s) Part E: ASCENDING POLYP: Received in formalin is 1 fragment(s) of briones, soft tissue measuring 0.6 x 0.6 x 0.6 cm submitted entirely in 1 cassette(s) Part F: RECTAL POLYP: Received in formalin are 3 fragments of briones soft tissue measuring 1.6 x 1.1 x 1.1 cm in aggregate. Specimen is sectioned and submitted in its entirety in 3 cassettes. /ANITA 05/16/20201920 Local . 02 Pathologist provided ICD-10: D12.0, D12.2, D12.8 . 02 CPT . 900205, 976417, 850132, [id number], [id number], [id number], [id number] Performed at: 01 [facility] [address] [facility], [place], [place] [id number] MD Daniel Martin MD Phone: [phone] Performed at: 02 [facility] [address] [place], [place] [id number] MD Renae Guadalupe MD Phone: [phone]
[2020-05-15] MEDS: LACTATED RINGERS 1,000 ML 100 ML IV ×2 (07:18→09:46)
--- NOTE | 2020-05-15 07:29 | PM.PREOP ---
Pre-operative Note COVID-19 COVID-19 status: Negative Result date/Date tested (Pos, Neg/Pending): 05/14/20 Interval Note History & Physical reviewed/Exam performed by Physician: Yes Changes to H&P: No
--- NOTE | 2020-05-15 08:14 | P.OP.ENDO_ITS ---
Operative Date/Time/Diagnoses Date of procedure: 05/15/20 Time of procedure: 08:14 Pre-op diagnosis: Anemia, gastritis Post-op diagnosis: other (improved/healing gastritis; extensive diverticulosis with many false passages; large polyp at the anal verge; narrow anal opening; m ultiple small polyps in the cecum and ascending colon) Procedure & Clinicians Study performed: Esophagogastroduodenoscopy Biopsies of duodenum, stomach, and distal esophagus Colonoscopy Polypectomy with cold snare in cecum Polypectomy wtih 10mm hot snare in ascending colon Polypectomy with 24mm hot snare in rectum Same procedure as scheduled: Yes Indications: Anemia, gastritis. The anesthesiologist was consulted to sedate the patient for this procedure due to her medical fragility, and the expected difficulty of the procedure. Surgeon: Kathleen Arellano Procedure Notes SCOAP/Timeout: Performed Procedure in detail: The patient was brought to the room and placed in left lateral decubitus position with all bony prominences padded. A bite block was positioned in the patient's mouth to protect the lips, teeth, and tongue for the procedure. A time-out was performed and then the patient was given procedural sedation By the anesthesiologist. Once adequately sedated, the procedure was begun. The lubricated gastroscope was passed through the bite block and across the tongue and into the esophagus without incident. A tubular view of the e sophagus was maintained as the scope was advanced through the esophagus and into the stomach. The scope was advanced through the stomach and to the pylorus. The scope was gently popped through the pylorus and into the duodenal bulb. The scope was flexed and advanced into the second and third portions of the duodenum. The duodenum and duodenal bulb appeared fairly anu. The scope was withdrawn into the stomach. The stomach revealed evidence of improved gastritis with some evidence of ongoing inflammation, but no active bleeding, and significantly improved from prior EGD. The scope was retroflexed and the gastric cardia was examined. The hiatus [appeared fairly anu. The scope was then straightened, and withdrawn into the esophagus. The Z-line [appeared normal at 35 c. The distal esophagus [appeared normal. Biopsies were taken of the duodenum, stomach, and distal esophagus. The scope was then withdrawn through the esophagus with a tubular view. The scope was then withdrawn from the patient and attention was turned to the colonoscopy portion of the procedure. A rectal exam was performed revealingIn narrowed anal opening, about 1.5 cm in size. The colonoscope was then introduced to the rectum and gradually advanced to the cecum. The prep was poor, with solid and liquid stool throughout the colon. This would limit our ability to see lesions smaller than 1 cm in size. In the sigmoid and descending colon there was an extreme amount of diverticulosis, with any false passages. The colon was very tortuous, and advancing the scope was very difficult. Using the scope stiffener, and anterior abdominal wall pressure we were ventral able to reach the cecum. []The cecum was identified by the appendiceal orifice, the mucosal tri-fold, and the ileocecal valve. There is a polyp in the cecum which was removed with cold snare, there was a polyp in the ascending colon which was removed with hot snare. The scope was then retracted while rotating side to side and examining each mucosal fold. Bleeding was noted coming from the rectum during the procedure, without a clear source as we return versus in the colon. Once I reached the rectum I identified a large partially avulsed polyp sitting in about 15 cm in the rectum. After suctioning away a significant amount of blood and clot, I was able to identify the base of the polyp which was still attached just above the anal verge. The base of the polyp was excised with hot snare leaving cauterized mucosa and submucosal muscle without visible remaining polyp. All excised portions of the polyp were passed off for pathology. In aggretate it was 2-3cm in size. At the conclusion of procedure there was good hemostasis. The scope was withdrawn from the rectum. A Gelfoam with dibucaine was placed in the rectum. The patient tolerated the procedure well and was transferred to the PACU in stable condition. Scope withdrawal time: 47 Findings: diverticulosis, gastritis (improved/healing), polyp (One cecal polyp and 1 ascending colon polyp) and possible cancer (Large rectal polyp) Specimen(s): other (Biopsies of stomach, duodenum, esophagus. Polyps from cecum, ascending colon, and anal verge) Complications: other (Bleeding from avulsed polyp, controlled during the procedure) Impression: The likely source of anemia for this patient include her gastritis and a large rectal polyp. The gastritis is significantly improved. I would continue the patient on her PPI. The large polyp in the rectum was excised and sent for pathology. Further recommendations will be forthcoming after pathology results return. Post-procedure Recommendations: Other recommendation (pending pathology results) Follow up: weeks (two week follow up) Disposition: Acute Care
[2020-05-15] MEDS: DIBUCAINE 1% OINT 28 GM 1 APPLIC TOP (09:08)
--- NOTE | 2020-05-15 10:04 | SUR.OPER ---
Dressing: dibucaine ointment with gelfoam to rectum
--- NOTE | 2020-05-15 10:29 | SUR.PHASEI ---
Dr. Arellano spoke to patient (after labs were drawn). Explained that she would like to keep her for observation for a few hours or possibly overnight. Patient understanding. Dentures were returned to patient. Coffee given, tolerating well. Pt awake, oriented, very pleasant.
--- NOTE | 2020-05-15 10:37 | SUR.PHASEI ---
report called to acute care.
[2020-05-15 10:39] LABS: Add Manual Diff / Slide Review NO; Basophils Absolute Auto 0 /uL (0-100); Basophils Percent Auto 0.5 % (0-2); Eosinophils Absolute Auto 200 /uL (0-450); Eosinophils Percent Auto 3.7 % (2-4); Hematocrit 30.6 % (36-46); Hemoglobin 10.2 g/dL (12.0-16.0); Lymphocytes Absolute Auto 1200 /uL (1100-4500); Lymphocytes Percent Auto 27.9 % (25-40); Mean Corpuscular HGB Conc 33.5 % (30-36); Mean Corpuscular Hemoglobin 27.8 PG (26-34); Monocytes Absolute Auto 400 /uL (0-900); Monocytes Percent Auto 8.8 % (3-14); Neutrophils Absolute Auto 2500 /uL (1500-7000); Neutrophils Percent Auto 59.1 % (50-75); Platelet Count 149 X10^3/uL (150-400); Red Blood Cell Count 3.68 X10^6/uL (4.0-5.2); Red Cell Distribution Width 22.3 % (11.6-14.8); White Blood Cell Count 4.3 X10^3/uL (4.5-11.0)
--- NOTE | 2020-05-15 10:54 | SUR.PHASEI ---
Addendum entered by Anjelica Saul R.N. 05/15/20 10:55: Plastic clothing bag, backpack, and dentures to room with the patient. Original Note: 1038 Pt to room 225 on O2 at 2LNP, transferred into bed with slider board. Returned to O2 at 2L in room. Pt stable, pleasant and cooperative. Two RNs and TIRE SERVICE TECHNICIAN present, settling patient. No further questions. Pt expressed appreciation for care.
[2020-05-15 11:00] LABS: Anisocytosis 2+; Hypochromasia 1+; Poikilocytosis 1+
[2020-05-15] MEDS: METOPROLOL TARTRATE 5 MG/5 ML INJ IV (13:52)
[2020-05-15] MEDS: FERROUS SULFATE 325 MG TABLET PO ×2 (13:52→20:17)
--- NOTE | 2020-05-15 14:51 | PC.NURSE ---
Rec'd pt from PACU to rm 225 at 1050. Pt is AO x4 and making needs known with clear, logical speech. Oriented to room/routine, fall risk, use of call light. Instructed to wait for assistance before getting OOB. Plan is to monitor for bleeding and dc to home later today if stable. Pt was noted to be hypertensive and not normally on BP medications at home. Pt denies chest pain, headache. Does report dizziness and wooziness on standing and with ambulation. Contacted MD to report BP and pt symptoms and received orders for IV metoprolol. Post med administration, pt remains hypertensive, dizzy/unsteady when mobilizing and has had a large amount of UOP. Paged Dr. Arellano. Received call back from SNUFF MAKER- MD in case. Left message with RN regarding BP, UOP, pt symptoms.
--- NOTE | 2020-05-15 16:22 | P.CONS_ITS ---
History of Present Illness Consult details Date Patient Seen: 05/15/20 Chief complaint: DX COLONOSCOPY/EGD Reason for consult: Elevated blood pressure, nausea Requesting provider: Kathleen Arellano Narrative: This is a 79-year-old female with past medical history of non- Hodgkin's lymphoma in remission, lung cancer status post radiation therapy, h ypertension on medications, hypothyroidism, chronic pain on gabapentin, recent GI bleed in August of 2019 secondary to gastritis who presents to the hospital for elective EGD and colonoscopy with Dr. Arellano today. The patient had a significant GI bleed in August where her hemoglobin dropped to 6. She underwent EGD at that time which revealed gastritis without ulceration. She was discharged on omeprazole and had been doing okay. She has had mild persistent anemia since that time and her oncologist referred her to surgery for the colonoscopy. She underwent EGD and a colonoscopy today. EGD showed gastritis, colonoscopy showed 3 polyps 1 of which was 2.4 cm in length. These were excised and sent for pathology. She was initially planned for discharge home however she remained persistently hypertensive with systolic blood pressure as high as 190, and she had generalized nausea so she was kept overnight for further care. The hospital medicine team was asked to consult on the patient is medical issues. The patient appears comfortable without significant pain. She does describe feeling very cold and is wrapped in several blankets. She reports mild nausea without vomiting. She reports minimal abdominal pain. She denies chest pain. She denies severe headache. She denies any dyspnea. Meds Home Medications and Allergies Home Medications Medication Instructions Recorded Confirmed Type multivitamin [Multiple Vitamins] 1 tab PO DAILY #0 01/01/17 05/15/20 History PreserVision AREDS-2 1 tab PO BID #0 10/29/17 05/15/20 History melatonin 10 mg PO BEDTIME 10/29/17 05/15/20 History polyethylene glycol 3350 17 gm PO DAILY 10/29/17 05/15/20 History Disabled Parking Placard #1 ea 05/04/18 05/15/20 Rx cyclosporine 0.05 % eye drops in a 1 drop EYE-BOTH BID each 05/04/18 05/15/20 History dropperette aspirin 81 mg PO DAILY 01/20/19 05/15/20 History cholecalciferol (vitamin D3) 2,000 unit PO DAILY 01/20/19 05/15/20 History [Vitamin D3] levothyroxine 75 mcg tablet 75 mcg PO DAILY #90 tab 04/17/19 05/15/20 Rx gabapentin 400 mg capsule 400 mg PO BID #180 cap 08/07/19 05/15/20 Rx gabapentin 800 mg tablet 800 mg PO BEDTIME #90 tab 08/07/19 05/15/20 Rx docusate sodium 100 mg capsule 200 mg PO BID cap 04/11/20 05/15/20 History ferrous sulfate 325 mg (65 mg 325 mg PO TID #90 tab 04/11/20 05/15/20 Rx iron) tablet sennosides 8.6 mg tablet 8.6 mg PO BID 04/11/20 05/15/20 History magnesium 250 mg PO DAILY 04/16/20 05/15/20 History mirtazapine 7.5 mg PO BEDTIME 04/16/20 05/15/20 History omeprazole 40 mg PO BID #60 cap 04/16/20 05/15/20 Rx vitamin B complex 1 cap PO DAILY 04/16/20 05/15/20 History zinc 50 mg PO DAILY 04/16/20 05/15/20 History sodium,potassium,mag sulfates 17.5 177 ml PO DAILY #354 ml 04/18/20 05/15/20 Rx gram-3.13 gram-1.6 gram oral soln amitriptyline 25 mg tablet 25 mg PO BEDTIME #180 tab 05/01/20 05/15/20 Rx rosuvastatin 20 mg tablet See Rx Instructions .ROUTE 05/01/20 05/15/20 Rx .COMPLEX #90 tablet Allergies Allergy/AdvReac Type Severity Reaction Status Date / Time ampicillin [AMPICILLIN] Allergy Severe BLOODY Verified 04/18/20 11:23 DIARRHEA Iodinated Contrast Media Allergy Severe ANAPHYLAXIS Verified 04/18/20 11:23 [IODINATED CONTRAST MEDIA - IV DYE] oxycodone [OXYCODONE] AdvReac Intermediate MAKES ME Verified 04/18/20 11:23 MEAN, CHANGE OF PERSONALITY adhesive [ADHESIVE] AdvReac Mild REDNESS Verified 04/18/20 11:23 Review of Systems Review of Systems ROS: Yes All systems reviewed with the patient and are negative except as otherwise documented Constitutional Constitutional: Denies body ache(s), Denies excessive sweating, Denies headache(s), Denies increased appetite, Denies night sweats, Denies weakness and Denies weight gain Eyes Eyes: Denies diplopia ENT Ears, Nose, Mouth, and Throat: No headache(s) Cardiovascular Cardiovascular: Denies chest pain and Denies dyspnea Respiratory Respiratory: Denies dyspnea Gastrointestinal Gastrointestinal: Denies abdominal pain, Reports nausea and Denies vomiting Musculoskeletal Musculoskeletal: Denies back pain Neurologic Neurologic: Denies headache(s) and Denies weakness Endocrine Endocrine: Denies excessive sweating Exam Vital Signs (past 8 hours): - 05/15/20 09:58 05/15/20 10:03 05/15/20 10:12 Temperature 97.8 F Pulse Rate 81 82 78 Respiratory Rate 19 18 16 Blood Pressure 127/65 132/69 146/73 H Pulse Oximetry 97 99 96 05/15/20 10:17 05/15/20 10:24 05/15/20 10:29 Temperature 97.9 F Pulse Rate 80 82 81 Respiratory Rate 17 11 L 17 Blood Pressure 146/62 H 148/65 H 137/70 Pulse Oximetry 95 94 95 05/15/20 10:54 05/15/20 11:19 05/15/20 11:51 Temperature 97.1 F L Pulse Rate 83 83 94 H Respiratory Rate 18 16 16 Blood Pressure 173/91 H 167/88 H 154/81 H Pulse Oximetry 94 93 92 05/15/20 12:51 05/15/20 13:17 05/15/20 13:44 Temperature Pulse Rate 91 H 89 86 Respiratory Rate 16 17 16 Blood Pressure 199/101 H 165/93 H 198/104 H Pulse Oximetry 92 93 96 05/15/20 14:04 05/15/20 14:34 05/15/20 14:49 Temperature Pulse Rate 88 78 80 Respiratory Rate Blood Pressure 180/93 H 187/93 H 191/98 H Pulse Oximetry 95 96 96 05/15/20 15:19 Temperature 98.4 F Pulse Rate 78 Respiratory Rate 18 Blood Pressure 177/91 H Pulse Oximetry 96 Oxygen Delivery Method Nasal Cannula Oxygen Flow Rate 0 Narrative Exam Narrative: Const General: cooperative Orientation: alert, awake and oriented x3 HENMT Head: normal to inspection, normocephalic and atraumatic Eyes General: appearance normal, both eyes and all related structures Pupils: PERRL EOM: EOM intact bilaterally Neck Neck: normal visual inspection and full ROM Chest Chest: normal inspection of the chest and normal palpation of entire chest wall Resp Effort & Inspection: normal respiratory effort Auscultation: no rales, no rhonchi and no wheezes Cardio Palpation: normal PMI Rate: regular rate Rhythm: regular rhythm Heart Sounds: S1 normal and S2 normal GI Inspection: normal to inspection Palpation: soft, No guarding and No tender Auscultation: normal bowel sounds Neuro General: patient alert, patient awake, patient oriented x3 and CN's II-XI intact bilaterally Motor: muscle tone normal throughout Sensory Exam: no sensory deficits noted Extrem General: normal to inspection Psych Mood: congruent mood Affect: normal affect Attitude: cooperative Thought Content: normal Objective Labs Result Diagrams: 05/15/20 10:10 Labs: Laboratory Results - last 24 hr 05/15/20 10:10 WBC 4.3 L RBC 3.68 L Hgb 10.2 L Hct 30.6 L MCV 83.0 MCH 27.8 MCHC 33.5 RDW 22.3 H Plt Count 149 L Neut % (Auto) 59.1 Lymph % (Auto) 27.9 [place] % (Auto) 8.8 Eos % (Auto) 3.7 Baso % (Auto) 0.5 Neut # (Auto) 2500 Lymph # (Auto) 1200 [place] # (Auto) 400 Eos # (Auto) 200 Baso # (Auto) 0 RBC Morphology Not Reportable Hypochromasia 1+ H Poikilocytosis 1+ H Anisocytosis 2+ H Assessment & Plan Assessment & Plan narrative: Assessment: This is a 79-year-old female with past medical history of non-Hodgkin's lymphoma in remission, lung cancer status post radiation therapy, hypertension not on medication, hypothyroidism, chronic neck pain and gabapentin, recent GI bleed, who presented today for elective EGD and colonoscopy and is found to have mild nausea and hypertension post-procedurally and is admitted for observation. The hospital medicine service was asked to consult on her medical needs. #. Colonic polyps #. Gastritis She is status post EGD and colonoscopy on 05/[address] Arellano. EGD revealed gastritis. Colonoscopy revealed 3 polyps. She continues on a PPI. Will defer further management to Dr. Arellano and outpatient providers. #. Hypertension She is found to be hypertensive up to systolic blood pressure 190 post- procedurally. He does not have significant pain. She is asymptomatic and denies chest pain, dyspnea, or severe headache. She was previously normotensive earlier in the day. She does report that she had previously been on metoprolol, but that was discontinued after she experienced hypotension and weakness. We will monitor the patient off of oral agents and reassess need in the morning. Add hydralazine as needed for systolic blood pressure greater than 160. #. Hypothyroidism Continue home Synthroid #. Iron deficiency anemia Continue home iron #. Insomnia Continue home amitriptyline DVT prophylaxis: SCDs Code status: Limited, DNR, Okay to Intubate
[2020-05-15 16:48] LABS: BUN Creatinine Ratio 17.6 (6-22); Blood Urea Nitrogen 9 mg/dL (7-17); Calcium 9.2 mg/dL (8.4-10.2); Carbon Dioxide 36 mmol/L (22-32); Chloride 95 mmol/L (98-107); Estimated Glomerular Filt Rate > 60.0 mL/min (>60); Glucose 102 mg/dL (80-110); HEMOLYSIS < 15 (0-50); Magnesium 1.9 mg/dL (1.6-2.3); Phosphorous 2.9 mg/dL (2.8-4.1); Potassium 3.3 mmol/L (3.4-5.1); Sodium 135 mmol/L (137-145)
[2020-05-15] MEDS: POTASSIUM CHLORIDE 20 MEQ TAB 40 MEQ PO (18:17)
[2020-05-15] MEDS: GABAPENTIN 400 MG CAPSULE 800 MG PO (20:17)
[2020-05-15] MEDS: AMITRIPTYLINE 25 MG TABLET PO (20:17)
[2020-05-15] MEDS: MIRTAZAPINE 7.5 MG TABLET PO (20:17)
[2020-05-15] MEDS: VIT C/E/ZN/COPPR/LUTEIN/ZEAXAN CAPSULE 1 CAP PO (20:17)
[2020-05-15] MEDS: PANTOPRAZOLE 40 MG TABLET PO (20:19)
[2020-05-16 00:18] VITALS: BP 151/82; PULSE 88; RESP 17; TEMP 36.3; O2SAT 92
[2020-05-16 01:08] VITALS: O2SAT 92
[2020-05-16 05:00] VITALS: O2SAT 90
[2020-05-16 05:25] VITALS: BP 118/63; PULSE 83; RESP 16; TEMP 36.6; O2SAT 90
[2020-05-16 05:26] LABS: Add Manual Diff / Slide Review NO; Basophils Absolute Auto 0 /uL (0-100); Basophils Percent Auto 0.9 % (0-2); Eosinophils Absolute Auto 200 /uL (0-450); Eosinophils Percent Auto 4.6 % (2-4); Hemoglobin 10.3 g/dL (12.0-16.0); Lymphocytes Absolute Auto 900 /uL (1100-4500); Lymphocytes Percent Auto 21.5 % (25-40); Mean Corpuscular HGB Conc 33.3 % (30-36); Mean Corpuscular Hemoglobin 27.4 PG (26-34); Mean Corpuscular Volume 82.2 fL (80-100); Monocytes Absolute Auto 400 /uL (0-900); Monocytes Percent Auto 9.4 % (3-14); Neutrophils Absolute Auto 2800 /uL (1500-7000); Neutrophils Percent Auto 63.6 % (50-75); Platelet Count 157 X10^3/uL (150-400); Red Blood Cell Count 3.77 X10^6/uL (4.0-5.2); Red Cell Distribution Width 21.3 % (11.6-14.8); White Blood Cell Count 4.4 X10^3/uL (4.5-11.0)
[2020-05-16 05:30] LABS: BUN Creatinine Ratio 12.2 (6-22); Blood Urea Nitrogen 6 mg/dL (7-17); Calcium 8.9 mg/dL (8.4-10.2); Carbon Dioxide 32 mmol/L (22-32); Chloride 98 mmol/L (98-107); Estimated Glomerular Filt Rate > 60.0 mL/min (>60); Glucose 86 mg/dL (80-110); HEMOLYSIS < 15 (0-50); Magnesium 1.9 mg/dL (1.6-2.3); Phosphorous 2.9 mg/dL (2.8-4.1); Potassium 3.6 mmol/L (3.4-5.1); Sodium 134 mmol/L (137-145)
[2020-05-16 05:53] LABS: Anisocytosis 2+; Hypochromasia 1+; Poikilocytosis 1+
[2020-05-16] MEDS: LEVOTHYROXINE 75 MCG TABLET PO (06:34)
[2020-05-16] MEDS: PANTOPRAZOLE 40 MG TABLET PO (06:34)
[2020-05-16 08:00] VITALS: BP 128/66; PULSE 81; RESP 17; TEMP 36.8; O2SAT 89
--- NOTE | 2020-05-16 09:17 | CM.DANOTE ---
Patient is a 79 year old female who was admitted on 05/15/20 for EGD/Colonoscopy. Pt has [employer] and [employer] for insurance and her PCP is Arabella Patel. EMR was reviewed. Per Surgeon, pt tolerated her EGD/colonoscopy well but showed gastritis and polyps which were clipped and sent for biopsy. Pt then became hypertensive and nauseaus and was admitted overnight for observation. Per Surgeon and Hospitalist, pt medically stable to d/c home today with outpt follow up. SW met bedside with pt and explained role and she confirms that she is agreeable with d/c home today via friend POV and no concerns at this time. Pt states she lives at home alone in [place] as she has for 20 years and has a 14 yo dog that keeps her active. Pt does not use DME for ambulation and drives sometimes or a friend drives. Pt denies any hx of SNF but used HH many years ago after a major surgery. Pt's Dtr/DPOA lives near [place], [place] but comes over from [facility] to visit frequently and pt is excited about her granddtr's upcoming wedding. Pt states her friend can still transport her home today and is available for assist if needed. Plan: Patient to d/c home later today via friend POV and no SW needs at this time. AMY Schreiber Discharge Planning/Care Management Advanced directive, confirm from FAMILY Start: 05/15/20 11:11 Freq: Q24H Status: Active Protocol: Document 05/15/20 11:11 JLN (Rec: 05/15/20 11:23 [id number]) Advance Directive, confirm on record Time 10:50 Person contacted pt Copy received No CM Discharge Assessment Start: 05/16/20 09:15 Freq: Status: Active Protocol: Document 05/16/20 09:15 BF (Rec: 05/16/20 09:17 BF [id number]) Discharge Planning Assessment Assigned Relations Specialist AMY Singh DPLEONARD/Assigned Designee Name Sebastian Kumari Contact Information [phone] Advance Directives? Yes Advance Directives on File No History Provided By Patient,Medical Record Has Patient been admitted in last 30 No days? Prior Living Arrangements House Household Members none Type of transporation used prior to Drives own vehicle admit Independent with ADL's Yes Is patient alert and oriented? Yes Caregiver for Another No DME Already Rented / Owned Cane Barriers to Discharge No Discharge Plan Home Transportation Arrangement Friend to provide transportation home. Referrals Initiated None needed Whiteboard Updated in Patient Room with Yes name and ext. # of Relations Specialist Review Status In Process Please Provide Date Initial DC 05/16/20 Assessment Was Performed Next Review Type Continued Stay Review
[2020-05-16] MEDS: MULTIVITAMIN 1 TABLET 1 TAB PO (09:22)
[2020-05-16] MEDS: FERROUS SULFATE 325 MG TABLET PO (09:22)
[2020-05-16] MEDS: VITAMIN B COMPLEX 1 CAPSULE 1 CAP PO (09:22)
[2020-05-16] MEDS: CHOLECALCIFEROL (VITAMIN D3) 1,000 UNIT TABLET 2000 UNIT PO (09:22)
[2020-05-16] MEDS: GABAPENTIN 400 MG CAPSULE PO (09:22)
[2020-05-16] MEDS: VIT C/E/ZN/COPPR/LUTEIN/ZEAXAN CAPSULE 1 CAP PO (09:22)
[2020-05-16 10:03] VITALS: O2SAT 92
[2020-05-16] MEDS: ACETAMINOPHEN 325 MG TABLET 650 MG PO (10:11)
--- NOTE | 2020-05-16 11:22 | PC.NURSE ---
Day sbhift: Pt left unit at approx 1120. Being picked up by friend and driven home by the friend. Taken to that car via WC. Paperwork signed and all questions answered. Pt encouraged to make f/u appointment and that was written in d/c packet. Pt also encouraged to get new PCP. No new MD scripts.
== END 2020-05-16 11:24 | disposition home or self-care (01) ==
LOC: OR 06:34 → AC 10:02
PROVIDERS: Family Provider Physician Assistant; PCP Nurse Practitioner; Referring Provider Surgery; Visit Provider Surgery
PROC: 0DJ08ZZ Inspection of Upper Intestinal Tract, Via Natural or Artificial Opening Endoscopic (ICD-10-PCS; CPT 43235; principal; 2020-05-15 07:45)
PROC: 0DJD8ZZ Inspection of Lower Intestinal Tract, Via Natural or Artificial Opening Endoscopic (ICD-10-PCS; CPT 45378; 2020-05-15 07:45)
DX: D64.9 Anemia, unspecified (principal); Z86.73 Personal history of transient ischemic attack (TIA), and cerebral infarction without residual deficits; J44.9 Chronic obstructive pulmonary disease, unspecified; I25.10 Atherosclerotic heart disease of native coronary artery without angina pectoris; K21.9 Gastro-esophageal reflux disease without esophagitis; I10 Essential (primary) hypertension; E03.9 Hypothyroidism, unspecified; K57.30 Diverticulosis of large intestine without perforation or abscess without bleeding; K29.50 Unspecified chronic gastritis without bleeding; D12.0 Benign neoplasm of cecum; D12.2 Benign neoplasm of ascending colon; D12.8 Benign neoplasm of rectum
CPT/HCPCS: 45385; 45384; 43239; 36415; 80048; 83735; 84100; 85014; 85018; 85025; J2704; J3010

== ENCOUNTER → 2020-09-19 10:06 | Outpatient (CLI) | payer MEDICARE, OTHER, SELFPAY ==
[2020-05-15 10:05] VITALS: BMI 24.4
--- NOTE | 2020-09-19 10:10 | DI.CT.S_ITS ---
PROCEDURE: CT CHEST WO CON INDICATIONS: Follow up lung cancer after radiation TECHNIQUE: Noncontrast 5 mm thick sections acquired from the pulmonary apices to the posterior costophrenic angles. 1 mm lung window, 5 mm thick coronal and sagittal and 7 mm axial MIP reformats were then acquired. For radiation dose reduction, the following was used: automated exposure control, adjustment of mA and/or kV according to patient size. COMPARISON: [place], [place] PET CT FUSION SKULL 2 THIGH, 04/19/2019, 17:03. [place], [place] PET CT FUSION SKULL 2 THIGH, 08/30/2019, 13:44. [facility], CT, CT CHEST WO CON, 12/07/2019, 9:09. [facility], CT, CT CHEST WO CON, 03/26/2020, 11:24. FINDINGS: Image quality: Excellent. Lungs and pleura: The right upper lobe posterior medial lung nodule has slightly enlarged, now measuring 1.3 cm; previously 0.9 cm. The 1.1 x 1.9 cm spiculated density in the right apex demonstrating no interval enlargement. Moderate emphysema. A calcified granuloma is present in the left upper lobe. No acute air space opacities. No pleural effusions or pneumothorax. Central and peripheral airways are patent and normal in caliber. Mediastinum: Heart size is normal. There is a aortic valve prosthesis. Moderate coronary artery calcification. No pericardial effusion. No mediastinal adenopathy by size criteria. Thoracic aorta and central pulmonary arteries are normal in size. Severe aortic atherosclerosis. Esophagus is normal in caliber. No hiatal hernia. Bones and chest wall: Sternotomy. No suspicious bony lesions. No vertebral body compression fractures. No axillary or supraclavicular adenopathy by size criteria. Thyroid gland is unremarkable. Abdomen: There is a 1.2 x 1.9 left adrenal nodule, unchanged in size. There are calcified granulomas in liver. Cholecystectomy. IMPRESSION: 1. Slight interval enlargement of the right upper lobe posterior medial lung nodule, concerning for recurrent lung cancer. PET-CT is recommended for follow-up. 2. Stable spiculated density in the right apex. 3. Stable left adrenal nodule. Dictated by: Raghav Castillo M.D. on 09/19/2020 at 15:28 Approved by: Raghav Castillo M.D. on 09/19/2020 at 15:41
== END ==
PROVIDERS: Family Provider Physician Assistant; PCP Nurse Practitioner; Referring Provider Internal Medicine; Visit Provider Internal Medicine
DX: C34.11 Malignant neoplasm of upper lobe, right bronchus or lung (principal); E27.9 Disorder of adrenal gland, unspecified; R91.8 Other nonspecific abnormal finding of lung field; Z92.3 Personal history of irradiation; Z95.2 Presence of prosthetic heart valve
CPT/HCPCS: 71250

== ENCOUNTER → 2020-09-27 15:28 | Outpatient (CLI) | payer MEDICARE, OTHER, SELFPAY ==
[2020-05-15 10:05] VITALS: BMI 24.4
--- NOTE | 2020-09-27 15:30 | DI.MRI.S_ITS ---
PROCEDURE: MR HEAD/BRAIN WO/W CON INDICATIONS: assess for metastatic disease, staging TECHNIQUE: Noncontrast axial T1 spin echo, axial T2 fast spin echo, sagittal and axial FLAIR, coronal T2 fast spin echo, axial gradient echo, axial diffusion and ADC through the brain. After the administration of contrast, axial and coronal T1 spin echo with fat saturation through the brain. COMPARISON: [facility], MR, MR HEAD/BRAIN WO CON, 10/29/2017, 17:53. [facility], MR, MR HEAD/BRAIN WO/W CON, 11/16/2018, 15:43. [facility], [place] CT FUSION SKULL 2 THIGH, 08/30/2019, 13:44. [facility], MR, MR HEAD/BRAIN WO/W CON, 07/20/2019, 11:24. FINDINGS: Image quality: Excellent. CSF spaces: Basal cisterns are patent. No extra-axial fluid collections. Ventricles are normal in size and shape. Brain: No midline shift. No intracranial bleeds or masses. No abnormal intracranial enhancement. There is cerebral volume loss for age. Numerous T2 hyperintense foci can be seen within the periventricular deep white matter. The brainstem appears normal. Diffusion-weighted images demonstrate no acute ischemic insults. No chronic ischemic insults. Normal intravascular flow voids are present. Skull and face: There is again seen a focal of mildly increased enhancement involving the left frontal bone anteriorly, as on series 13 images 129 through 140 and on series 15, image 166. This is similar to prior studies. No new calvarial lesions are seen. Calvarium otherwise demonstrates normal signal and enhancement. Orbits appear normal. Note is made of bilateral lens replacements. Sinuses: Sinuses and mastoids appear clear. IMPRESSION: No parenchymal masses or abnormal enhancement can be seen to suggest parenchymal intracranial enhancement. There is again seen a poorly defined area of focal enhancement involving the left frontal calvarium, which is similar to the priors and may represent bony metastatic disease. Numerous foci of T2 weighted hyperintensity can be seen within the periventricular deep white matter, which are statistically most likely to chronic small vessel ischemic change in a patient of this age. Age-appropriate brain parenchymal volume loss can be seen. Dictated by: Jayjay Belle M.D. on 09/27/2020 at 15:41 Approved by: Jayjay Belle M.D. on 09/27/2020 at 15:46
== END ==
PROVIDERS: Family Provider Physician Assistant; PCP Nurse Practitioner; Referring Provider Internal Medicine Medical Oncology; Visit Provider Internal Medicine Medical Oncology
DX: C34.11 Malignant neoplasm of upper lobe, right bronchus or lung (principal)
CPT/HCPCS: 70553; A9579

== ENCOUNTER 2020-12-06 12:59 | Emergency (ER) | payer MEDICARE, OTHER, SELFPAY ==
[2020-05-15 10:05] VITALS: BMI 24.4
[2020-12-06] VITALS (9 sets, daily range): BP systolic 158–193; BP diastolic 65–94; PULSE 84–94; RESP 12; TEMP 36.4; O2SAT 92–97; BMI 24.4
[2020-12-06 13:36] LABS: Amorphous Sediment Urine 1+; RBC Urine 30-100/HPF (0-5/HPF); Squamous Epithelial Cell Urine 1-5 /HPF (0-5/HPF); WBC Urine 1-5/HPF (0-5/HPF)
[2020-12-06 13:37] LABS: Bacteria Urine Occasional (0-1); Culture Indicated Urine Specimen Cultured; Mucus Urine 2+ (Negative)
--- NOTE | 2020-12-06 13:49 | ED_ITS ---
HPI - Female Genitourinary <Joi Mitchell DO - Last Filed: 12/08/20 15:08> General Chief complaint: Urogenital-Female Stated complaint: Thinks Bladder Infection Time Seen by Provider: 12/06/20 13:38 Mode of arrival: Family Vehicle Limitations: no limitations Related Data Home Medications Medication Instructions Recorded Confirmed multivitamin (Multiple Vitamins) 1 tab PO DAILY #0 01/01/17 11/06/20 melatonin 10 mg tablet 10 mg PO BEDTIME 10/29/17 11/06/20 polyethylene glycol 3350 17 17 gm PO DAILY 10/29/17 11/06/20 gram/dose oral powder vit C 250 mg-vit E 90 mg-zinc 40 1 tab PO BID #0 10/29/17 11/06/20 mg-copper 1 [id number] capsule (PreserVision AREDS-2) cyclosporine 0.05 % eye drops in a 1 drop EYE-BOTH BID each 05/04/18 11/06/20 dropperette (Restasis) aspirin 81 mg tablet,delayed 81 mg PO DAILY 01/20/19 11/06/20 release cholecalciferol (vitamin D3) 50 2,000 unit PO DAILY 01/20/19 11/06/20 mcg (2,000 unit) capsule (Vitamin D3) docusate sodium 100 mg capsule 200 mg PO BID cap 04/11/20 11/06/20 (Colace) sennosides 8.6 mg tablet (Natural 8.6 mg PO BID 04/11/20 11/06/20 Senna Laxative) magnesium 250 mg tablet 250 mg PO DAILY 04/16/20 11/06/20 mirtazapine 7.5 mg tablet 7.5 mg PO BEDTIME 04/16/20 11/06/20 vitamin B complex 1 cap PO DAILY 04/16/20 11/06/20 zinc 50 mg capsule 50 mg PO DAILY 04/16/20 11/06/20 ferrous sulfate 325 mg (65 mg 325 mg PO DAILY 06/25/20 11/06/20 iron) tablet (iron) Previous Rx's Medication Instructions Recorded Disabled Parking Placard #1 ea 05/04/18 sodium,potassium,mag sulfates 17.5 177 ml PO DAILY #354 ml 04/18/20 gram-3.13 gram-1.6 gram oral soln rosuvastatin 20 mg tablet See Rx Instructions .ROUTE 05/01/20 .COMPLEX #90 tablet amitriptyline 25 mg tablet 25 - 50 mg PO BEDTIME #120 tab 08/07/20 gabapentin 400 mg capsule 400 mg PO BID #120 cap 08/07/20 gabapentin 800 mg tablet 800 mg PO BEDTIME #60 tab 08/07/20 omeprazole 40 mg capsule,delayed 40 mg PO BID #120 cap 08/07/20 release levothyroxine 75 mcg tablet See Rx Instructions .ROUTE 11/01/20 .COMPLEX #90 tab Allergies Allergy/AdvReac Type Severity Reaction Status Date / Time ampicillin [AMPICILLIN] Allergy Severe BLOODY Verified 12/06/20 13:18 DIARRHEA Iodinated Contrast Media Allergy Severe ANAPHYLAXIS Verified 12/06/20 13:18 [IODINATED CONTRAST MEDIA - IV DYE] oxycodone [OXYCODONE] AdvReac Intermediate MAKES ME Verified 12/06/20 13:18 MEAN, CHANGE OF PERSONALITY adhesive [ADHESIVE] AdvReac Mild REDNESS Verified 12/06/20 13:18 <Villa Sykes PA-C - Last Filed: 12/06/20 19:37> History of Present Illness HPI Narrative: Fabien presents today with chief complaint of constipation that has been going on for about 1 week. She reports that she recently had chemotherapy for her lung cancer 1 week ago and has not had a full bowel movement since this occurred. She is still able to pass gas but notes abdominal fullness. She reports that yesterday she noticed some blood in her urine but that has cleared up today. She denies any significant burning with urination, increased frequency of urination, increased urgency to urinate, flank pain, low back pain, nausea, vomiting, chest pain or any other acute concerns or complaints at this time. 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) GERD (gastroesophageal reflux disease) History of aortic valve replacement with bioprosthetic valve (10/23/10) Hyperlipidemia Hypertension Hypothyroidism Macular degeneration Mitral valve disorder Non Hodgkin's lymphoma Osteoarthritis (07/23/10) Osteoporosis (~2015) Peripheral neuropathy Pulmonary embolism Raynaud's disease (05/17/12) 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) Surgical History H/O total hysterectomy History of appendectomy History of cataract removal with insertion of prosthetic lens History of cholecystectomy History of lumpectomy of left breast History of lung surgery (1993) Hx of aortic valve replacement (07/2013) Hx of fusion of cervical spine (~03/2004) Hx of hysterectomy (~04/1987) Status post cholecystectomy Family History Mother Cancer Colon cancer Heart disease Father Lung cancer Brother Lung cancer Sister CVA (cerebral vascular accident) Heart disease Daughter Myocardial infarction alcohol intake frequency: holidays/special occasions only Substance Use Type: does not use Exam <Joi Mitchell DO - Last Filed: 12/08/20 15:08> Initial Vital Signs Initial Vital Signs: Vital Signs Temperature 97.6 F 12/06/20 13:04 Pulse Rate 84 12/06/20 13:04 Respiratory Rate 12 12/06/20 13:04 Blood Pressure 164/77 H 12/06/20 13:04 Pulse Oximetry 94 12/06/20 13:04 <Villa Sykes PA-C - Last Filed: 12/06/20 19:37> Narrative Exam Narrative: Exam Narrative: Const General: cooperative, healthy appearing, comfortable, no acute distress, well developed and well groomed Nutritional Appearance: average body habitus Orientation: alert and oriented x3 HENMT Head: normal to inspection and atraumatic Ears: hearing grossly normal bilaterally Nose: external nose normal and nares normal Face and sinus: normal facial exam Neck Neck: normal visual inspection and supple Resp Effort & Inspection: normal respiratory effort, able to speak in complete sentences, no audible wheezes, not labored, no nasal flaring and no respiratory distress, clear to auscultation bilaterally GI Nondistended, nontender to palpation, normal bowel sounds Neuro General: alert, oriented x3, gait normal, tone normal and moves all extremities Cognition: normal cognition Speech: speech normal Gait: normal gait Psych Appearance: grossly normal and well kempt Mental Status: mental status grossly normal Speech and Movement: speech and movement normal Mood: congruent mood Affect: normal affect Initial Vital Signs Initial Vital Signs: Vital Signs Temperature 97.6 F 12/06/20 13:04 Pulse Rate 84 12/06/20 13:04 Respiratory Rate 12 12/06/20 13:04 Blood Pressure 164/77 H 12/06/20 13:04 Pulse Oximetry 94 12/06/20 13:04 Course <Joi Mitchell DO - Last Filed: 12/08/20 15:08> Orders Ordered: ED Orders 12/06/20 13:27 Urine Culture Stat Urine Microscopic Stat 12/06/20 14:57 XR abdomen 1V Stat 12/06/20 15:49 CT abdomen pelvis wo con Stat 12/06/20 16:10 Complete Blood Count AUTO DIFF Stat Comprehensive Metabolic Panel Stat Lactate (Lactic Acid) Stat Vital Signs Vital signs: Vital Signs - 8 hr 12/06/20 13:04 12/06/20 14:13 12/06/20 14:23 Temperature 97.6 F Pulse Rate 84 89 84 Respiratory Rate 12 Blood Pressure 164/77 H 180/77 H 158/65 H Pulse Oximetry 94 96 12/06/20 14:30 12/06/20 15:00 12/06/20 15:30 Temperature Pulse Rate 85 87 89 Respiratory Rate Blood Pressure 158/65 H Pulse Oximetry 95 96 95 12/06/20 15:51 12/06/20 16:01 12/06/20 16:08 Temperature Pulse Rate 94 H 90 89 Respiratory Rate Blood Pressure 180/86 H 193/94 H Pulse Oximetry 92 93 97 <Villa Sykes PA-C - Last Filed: 12/06/20 19:37> Orders Ordered: ED Orders 12/06/20 13:27 Urine Culture Stat Urine Microscopic Stat 12/06/20 14:57 XR abdomen 1V Stat 12/06/20 15:49 CT abdomen pelvis wo con Stat 12/06/20 16:10 Complete Blood Count AUTO DIFF Stat Comprehensive Metabolic Panel Stat Lactate (Lactic Acid) Stat Vital Signs Vital signs: Vital Signs - 8 hr 12/06/20 13:04 12/06/20 14:13 12/06/20 14:23 Temperature 97.6 F Pulse Rate 84 89 84 Respiratory Rate 12 Blood Pressure 164/77 H 180/77 H 158/65 H Pulse Oximetry 94 96 12/06/20 14:30 12/06/20 15:00 12/06/20 15:30 Temperature Pulse Rate 85 87 89 Respiratory Rate Blood Pressure 158/65 H Pulse Oximetry 95 96 95 12/06/20 15:51 12/06/20 16:01 12/06/20 16:08 Temperature Pulse Rate 94 H 90 89 Respiratory Rate Blood Pressure 180/86 H 193/94 H Pulse Oximetry 92 93 97 MDM - Female Genitourinary <Joi Mitchell DO - Last Filed: 12/08/20 15:08> Lab Data Result diagrams: 12/06/20 16:10 12/06/20 16:10 Labs: Lab Results 12/06/20 12/06/20 12/06/20 Range/Units 13:27 16:10 16:10 WBC 4.5 (4.5-11.0) X10^3/uL RBC 4.29 (4.0-5.2) X10^6/uL Hgb 12.8 (12.0-16.0) g/dL Hct 38.3 (36-46) % MCV 89.3 (80-100) fL MCH 29.7 (26-34) PG MCHC 33.3 (30-36) % RDW 14.8 (11.6-14.8) % Plt Count 212 (150-400) X10^3/uL Neut % (Auto) 62.4 (50-75) % Lymph % (Auto) 23.9 L (25-40) % [place] % (Auto) 9.6 (3-14) % Eos % (Auto) 3.3 (2-4) % Baso % (Auto) 0.8 (0-2) % Neut # (Auto) 2800 (9271-5722) /uL Lymph # (Auto) 1100 (3535-7249) /uL [place] # (Auto) 400 (0-900) /uL Eos # (Auto) 100 (0-450) /uL Baso # (Auto) 0 (0-100) /uL Sodium 140 (137-145) mmol/L Potassium 3.9 (3.4-5.1) mmol/L Chloride 99 (98-107) mmol/L Carbon Dioxide 34 H (22-32) mmol/L BUN 12 (7-17) mg/dL Creatinine 0.51 L (0.52-1.04) mg/dL Estimated GFR > 60.0 (>60) mL/min BUN/Creatinine Ratio 23.5 H (6-22) Glucose 90 (80-110) mg/dL Lactate (0.7-2.1) mmol/L Calcium 9.5 (8.4-10.2) mg/dL Total Bilirubin 0.3 (0.2-1.3) mg/dL AST 37 H (14-36) IU/L ALT 21 (<35) IU/L Alkaline Phosphatase 121 (38-126) U/L Total Protein 7.5 (6.3-8.2) g/dL Albumin 4.6 (3.5-5.0) g/dL Globulin 2.9 (1.7-4.1) g/dL Albumin/Globulin Ratio 1.6 (1.0-2.8) Urine RBC 30-100/hpf H (0-5/HPF) Urine WBC 1-5/hpf (0-5/HPF) Ur Squamous Epith Cells 1-5 /hpf (0-5/HPF) Amorphous Sediment 1+ Urine Bacteria Occasional (0-1) (None) Urine Mucus 2+ H (Negative) Ur Culture Indicated? Specimen cultured 12/06/20 Range/Units 16:10 WBC (4.5-11.0) X10^3/uL RBC (4.0-5.2) X10^6/uL Hgb (12.0-16.0) g/dL Hct (36-46) % MCV (80-100) fL MCH (26-34) PG MCHC (30-36) % RDW (11.6-14.8) % Plt Count (150-400) X10^3/uL Neut % (Auto) (50-75) % Lymph % (Auto) (25-40) % [place] % (Auto) (3-14) % Eos % (Auto) (2-4) % Baso % (Auto) (0-2) % Neut # (Auto) (2945-6191) /uL Lymph # (Auto) (0717-7047) /uL [place] # (Auto) (0-900) /uL Eos # (Auto) (0-450) /uL Baso # (Auto) (0-100) /uL Sodium (137-145) mmol/L Potassium (3.4-5.1) mmol/L Chloride (98-107) mmol/L Carbon Dioxide (22-32) mmol/L BUN (7-17) mg/dL Creatinine (0.52-1.04) mg/dL Estimated GFR (>60) mL/min BUN/Creatinine Ratio (6-22) Glucose (80-110) mg/dL Lactate 0.7 (0.7-2.1) mmol/L Calcium (8.4-10.2) mg/dL Total Bilirubin (0.2-1.3) mg/dL AST (14-36) IU/L ALT (<35) IU/L Alkaline Phosphatase (38-126) U/L Total Protein (6.3-8.2) g/dL Albumin (3.5-5.0) g/dL Globulin (1.7-4.1) g/dL Albumin/Globulin Ratio (1.0-2.8) Urine RBC (0-5/HPF) Urine WBC (0-5/HPF) Ur Squamous Epith Cells (0-5/HPF) Amorphous Sediment Urine Bacteria (None) Urine Mucus (Negative) Ur Culture Indicated? Urine Dip Bedside Urine Glucose Negative Bedside Urine Bilirubin - Negative Bedside Urine Ketone - Negative Urine Specific [place] 1.020 Bedside Urine Occult Blood +++ Bedside Urine pH 6.0 Bedside Urine Protein - Negative Bedside Urine Urobilinogen +/- 1mg Bedside Urine Nitrite - Negative Bedside Urine Leukocytes - Negative Esterase <Villa Sykes PA-C - Last Filed: 12/06/20 19:37> Lab Data Labs: Lab Results 12/06/20 12/06/20 12/06/20 Range/Units 13:27 16:10 16:10 WBC 4.5 (4.5-11.0) X10^3/uL RBC 4.29 (4.0-5.2) X10^6/uL Hgb 12.8 (12.0-16.0) g/dL Hct 38.3 (36-46) % MCV 89.3 (80-100) fL MCH 29.7 (26-34) PG MCHC 33.3 (30-36) % RDW 14.8 (11.6-14.8) % Plt Count 212 (150-400) X10^3/uL Neut % (Auto) 62.4 (50-75) % Lymph % (Auto) 23.9 L (25-40) % [place] % (Auto) 9.6 (3-14) % Eos % (Auto) 3.3 (2-4) % Baso % (Auto) 0.8 (0-2) % Neut # (Auto) 2800 (2664-7811) /uL Lymph # (Auto) 1100 (4968-8015) /uL [place] # (Auto) 400 (0-900) /uL Eos # (Auto) 100 (0-450) /uL Baso # (Auto) 0 (0-100) /uL Sodium 140 (137-145) mmol/L Potassium 3.9 (3.4-5.1) mmol/L Chloride 99 (98-107) mmol/L Carbon Dioxide 34 H (22-32) mmol/L BUN 12 (7-17) mg/dL Creatinine 0.51 L (0.52-1.04) mg/dL Estimated GFR > 60.0 (>60) mL/min BUN/Creatinine Ratio 23.5 H (6-22) Glucose 90 (80-110) mg/dL Lactate (0.7-2.1) mmol/L Calcium 9.5 (8.4-10.2) mg/dL Total Bilirubin 0.3 (0.2-1.3) mg/dL AST 37 H (14-36) IU/L ALT 21 (<35) IU/L Alkaline Phosphatase 121 (38-126) U/L Total Protein 7.5 (6.3-8.2) g/dL Albumin 4.6 (3.5-5.0) g/dL Globulin 2.9 (1.7-4.1) g/dL Albumin/Globulin Ratio 1.6 (1.0-2.8) Urine RBC 30-100/hpf H (0-5/HPF) Urine WBC 1-5/hpf (0-5/HPF) Ur Squamous Epith Cells 1-5 /hpf (0-5/HPF) Amorphous Sediment 1+ Urine Bacteria Occasional (0-1) (None) Urine Mucus 2+ H (Negative) Ur Culture Indicated? Specimen cultured 12/06/20 Range/Units 16:10 WBC (4.5-11.0) X10^3/uL RBC (4.0-5.2) X10^6/uL Hgb (12.0-16.0) g/dL Hct (36-46) % MCV (80-100) fL MCH (26-34) PG MCHC (30-36) % RDW (11.6-14.8) % Plt Count (150-400) X10^3/uL Neut % (Auto) (50-75) % Lymph % (Auto) (25-40) % [place] % (Auto) (3-14) % Eos % (Auto) (2-4) % Baso % (Auto) (0-2) % Neut # (Auto) (6618-4474) /uL Lymph # (Auto) (9134-0646) /uL [place] # (Auto) (0-900) /uL Eos # (Auto) (0-450) /uL Baso # (Auto) (0-100) /uL Sodium (137-145) mmol/L Potassium (3.4-5.1) mmol/L Chloride (98-107) mmol/L Carbon Dioxide (22-32) mmol/L BUN (7-17) mg/dL Creatinine (0.52-1.04) mg/dL Estimated GFR (>60) mL/min BUN/Creatinine Ratio (6-22) Glucose (80-110) mg/dL Lactate 0.7 (0.7-2.1) mmol/L Calcium (8.4-10.2) mg/dL Total Bilirubin (0.2-1.3) mg/dL AST (14-36) IU/L ALT (<35) IU/L Alkaline Phosphatase (38-126) U/L Total Protein (6.3-8.2) g/dL Albumin (3.5-5.0) g/dL Globulin (1.7-4.1) g/dL Albumin/Globulin Ratio (1.0-2.8) Urine RBC (0-5/HPF) Urine WBC (0-5/HPF) Ur Squamous Epith Cells (0-5/HPF) Amorphous Sediment Urine Bacteria (None) Urine Mucus (Negative) Ur Culture Indicated? Urine Dip Bedside Urine Glucose Negative Bedside Urine Bilirubin - Negative Bedside Urine Ketone - Negative Urine Specific [place] 1.020 Bedside Urine Occult Blood +++ Bedside Urine pH 6.0 Bedside Urine Protein - Negative Bedside Urine Urobilinogen +/- 1mg Bedside Urine Nitrite - Negative Bedside Urine Leukocytes - Negative Esterase MDM Narrative Medical decision making narrative: Patient's physical examination is reassuring. She is passing gas and does not have any imaging to suggest bowel obstruction. She does not have any systemic signs of illness at this time. She does not have any significant abdominal tenderness. Recommend that we increase her MiraLax and have her stay well-hydrated with a hope that she will have a bowel movement soon. On review of her records, she has history of chronic constipation. ER return precautions were discussed with the patient. Patient verbalizes understanding and agrees to plan and has no further concerns at this time. Thank you A [id number] system was used with the dictation of this note. Please disregard any spelling or grammatical errors. Discharge Plan Departure Patient Disposition: Home Clinical Impression: Constipation Qualifiers: Constipation type: unspecified constipation type Qualified Code(s): K59.00 - Constipation, unspecified Instructions: DI for Constipation Activity Restrictions/Additional Instructions: It was nice to meet you this evening. Please continue to use the medications that you have been prescribed to help with your constipation. Recommend good oral hydration. Recommend increasing your MiraLax from 1 time per day to 2 times per day until you have a bowel movement. If you experience significant worsening abdominal pain, fever or have any additional concerns or complaints do not hesitate to return for re-evaluation. Thank you Villa Sykes PA-C Prescriptions: No Action Restasis 0.05 % dropperette 1 drop EYE-BOTH BID RF: 0 (DME) Disabled Parking Placard Qty: 1 RF: 0 multivitamin [Multiple Vitamins] 1 EACH tablet 1 tab PO DAILY Qty: 0 RF: 0 rosuvastatin 20 mg tablet See Rx Instructions .ROUTE .COMPLEX Qty: 90 RF: 3 gabapentin 400 mg capsule 400 mg PO BID Qty: 120 RF: 0 gabapentin 800 mg tablet 800 mg PO BEDTIME Qty: 60 RF: 0 amitriptyline 25 mg tablet 25 - 50 mg PO BEDTIME Qty: 120 RF: 0 omeprazole 40 mg capsule,delayed release(DR/EC) 40 mg PO BID Qty: 120 RF: 0 levothyroxine 75 mcg tablet See Rx Instructions .ROUTE .COMPLEX Qty: 90 RF: 0 docusate sodium [Colace] 100 mg capsule 200 mg PO BID RF: 0 sennosides [Natural Senna Laxative] 8.6 mg tablet 8.6 mg PO BID RF: 0 sodium,potassium,mag sulfates 17.5-3.13-1.6 gram recon soln 177 ml PO DAILY Qty: 354 RF: 0 PreserVision AREDS-2 [id number] [id number]-mg Capsule 1 tab PO BID Qty: 0 RF: 0 polyethylene glycol 3350 527 GM powder 17 gm PO DAILY RF: 0 melatonin 10 mg Tablet 10 mg PO BEDTIME RF: 0 magnesium 250 mg Tablet 250 mg PO DAILY RF: 0 vitamin B complex Capsule 1 cap PO DAILY RF: 0 zinc 50 mg Capsule 50 mg PO DAILY RF: 0 mirtazapine 7.5 mg Tablet 7.5 mg PO BEDTIME RF: 0 ferrous sulfate [iron] 325 mg (65 mg iron) tablet 325 mg PO DAILY RF: 0 aspirin 81 mg Tablet,Delayed Release (Dr/Ec) 81 mg PO DAILY RF: 0 cholecalciferol (vitamin D3) [Vitamin D3] 2,000 unit Capsule 2,000 unit PO DAILY RF: 0 Referrals: Arabella Patel ARNP [Primary Care Provider] - ED Sign-out <Joi Mitchell DO - Last Filed: 12/08/20 15:08> Cosign ED Attending Cosdwainature Attestation: I was immediately available in the department for consultation. Documentation has been reviewed.
--- NOTE | 2020-12-06 14:57 | DI.RAD.S_ITS ---
PROCEDURE: XR ABDOMEN 1V INDICATIONS: constipation TECHNIQUE: One view of the abdomen acquired. COMPARISON: None. FINDINGS: Surgical changes and devices: Clips in the upper abdomen and left pelvis. Bowel: Prominent bowel gas in the upper abdomen. Fecal residue seen in the pelvis. Soft tissues: No suspicious abdominal calcifications. Visualized solid organ contours appear normal in size. Bones: No suspicious bony lesions. IMPRESSION: Fecal residue seen in the pelvis. Prominent loops of colon suspected in the upper abdomen. Dictated by: Jaiden Muhammad M.D. on 12/06/2020 at 14:26 Approved by: Jaiden Muhammad M.D. on 12/06/2020 at 14:27
--- NOTE | 2020-12-06 15:49 | DI.CT.S_ITS ---
PROCEDURE: CT ABDOMEN PELVIS WO CON INDICATIONS: r/o bowel obstruction TECHNIQUE: Noncontrast 5 mm thick sections acquired from the diaphragms to the symphysis. 5 mm coronal and sagittal reformats were then performed. For radiation dose reduction, the following was used: automated exposure control, adjustment of mA and/or kV according to patient size. COMPARISON: [facility], CT, CT ABDOMEN PELVIS WO CON, 04/18/2019, 19:17. FINDINGS: Image quality: Excellent. Lung bases: Lung bases are clear. Heart size is normal. Solid organs: Liver: The liver has no mass or intrahepatic biliary ductal dilatation. Punctate calcifications are consistent with remote granulomatous disease. Biliary: Status post cholecystectomy. Pancreas: The pancreas has no mass or ductal dilatation. There is no surrounding inflammation. Spleen: Normal size. There are no masses. Adrenals: Stable 1.7 cm left adrenal nodule. No right adrenal nodule. Kidneys: Non-obstructing calculus in the inferior pole of the right kidney. No obstructive calculus or hydronephrosis. No solid mass. No cystic mass. Peritoneum and bowel: The distal esophagus and stomach are normal. The small bowel has a normal caliber and appearance. The terminal ileum is normal. The large bowel has increased stool consistent with constipation. There is diverticulosis without evidence of diverticulitis. The appendix is normal. No free fluid or air. Nodes and vessels: No retroperitoneal or mesenteric adenopathy by size criteria. Aorta and inferior vena cava are normal in size. Miscellaneous: No abdominal wall mass or hernia. PELVIS: Genitourinary: The bladder has no wall thickening or mass. No bladder calcifications. Miscellaneous: No inguinal hernias or adenopathy. Bones: Degenerative changes with no focal abnormality. Facet arthrosis is seen in the lower lumbar spine. Multilevel degenerative disc disease. IMPRESSION: 1. No acute abnormality of the abdomen or pelvis. 2. Nonobstructing right inferior pole nephrolith, unchanged. 3. Diverticulosis without evidence of diverticulitis. 4. Ectasia of the infrarenal abdominal aorta with a maximum axial dimension of 2.9 cm, unchanged compared to the prior CT. 5. Constipation. No evidence of small-bowel obstruction. Dictated by: Mateo Golden M.D. on 12/06/2020 at 16:04 Approved by: Mateo Golden M.D. on 12/06/2020 at 16:11
[2020-12-06 16:19] LABS: Add Manual Diff / Slide Review NO; Basophils Absolute Auto 0 /uL (0-100); Basophils Percent Auto 0.8 % (0-2); Eosinophils Absolute Auto 100 /uL (0-450); Eosinophils Percent Auto 3.3 % (2-4); Hematocrit 38.3 % (36-46); Hemoglobin 12.8 g/dL (12.0-16.0); Lymphocytes Absolute Auto 1100 /uL (1100-4500); Lymphocytes Percent Auto 23.9 % (25-40); Mean Corpuscular HGB Conc 33.3 % (30-36); Mean Corpuscular Hemoglobin 29.7 PG (26-34); Mean Corpuscular Volume 89.3 fL (80-100); Monocytes Absolute Auto 400 /uL (0-900); Monocytes Percent Auto 9.6 % (3-14); Neutrophils Absolute Auto 2800 /uL (1500-7000); Neutrophils Percent Auto 62.4 % (50-75); Platelet Count 212 X10^3/uL (150-400); Red Blood Cell Count 4.29 X10^6/uL (4.0-5.2); Red Cell Distribution Width 14.8 % (11.6-14.8); White Blood Cell Count 4.5 X10^3/uL (4.5-11.0)
[2020-12-06 16:42] LABS: Lactate (Lactic Acid) 0.7 mmol/L (0.7-2.1)
[2020-12-06 16:43] LABS: Alanine Aminotransferase 21 IU/L (<35); Albumin 4.6 g/dL (3.5-5.0); Albumin Globulin Ratio 1.6 (1.0-2.8); Alkaline Phosphatase 121 U/L (38-126); Aspartate Aminotransferase 37 IU/L (14-36); BUN Creatinine Ratio 23.5 (6-22); Bilirubin Total 0.3 mg/dL (0.2-1.3); Blood Urea Nitrogen 12 mg/dL (7-17); Calcium 9.5 mg/dL (8.4-10.2); Carbon Dioxide 34 mmol/L (22-32); Chloride 99 mmol/L (98-107); Estimated Glomerular Filt Rate > 60.0 mL/min (>60); Globulin 2.9 g/dL (1.7-4.1); Glucose 90 mg/dL (80-110); HEMOLYSIS < 15 (0-50); Potassium 3.9 mmol/L (3.4-5.1); Sodium 140 mmol/L (137-145); Total Protein 7.5 g/dL (6.3-8.2)
== END 2020-12-06 16:50 | disposition home or self-care (01) ==
PROVIDERS: Emergency Medicine; Emergency Provider Physician Assistant; Family Provider Physician Assistant; PCP Nurse Practitioner
DX: K59.00 Constipation, unspecified (principal)
CPT/HCPCS: 74018; 74176; 80053; 81003; 81015; 83605; 85025; 87086; 99284

== ENCOUNTER 2021-03-25 15:01 | Emergency (ER) | payer MEDICARE, OTHER, SELFPAY ==
[2020-05-15 10:05] VITALS: BMI 24.4
[2021-03-25 15:08] VITALS: BP 144/68; PULSE 97; RESP 15; TEMP 36.1; O2SAT 94; BMI 24.7
--- NOTE | 2021-03-25 15:18 | DI.CT.S_ITS ---
PROCEDURE: CT CERVICAL SPINE WO CON INDICATIONS: fall with pain TECHNIQUE: Noncontrast 3 mm thick sections acquired from the skull base to the T4 level. Sagittal and coronal reformats were then constructed. For radiation dose reduction, the following was used: automated exposure control, adjustment of mA and/or kV according to patient size. COMPARISON: [facility], CR, XR THORACIC SPINE 2V, 03/25/2021, 15:22. [facility], CT, CT CHEST WO CON, 09/19/2020, 10:35. FINDINGS: Image quality: Excellent. Bones: No fractures or dislocations. Visualized superior ribs are intact. Extensive cervical spine fixation hardware is seen, with bilateral pedicle screws seen C2 through T1. The Bone grafting material is noted. Soft tissues: Prevertebral soft tissues are normal in thickness. No paravertebral hematomas. No apical pneumothoraces. Atherosclerotic calcification is noted. Emphysematous changes are seen at the lung apices. A spiculated nodule is again seen at the right lung apex. IMPRESSION: No acute fracture is seen. Extensive fixation hardware is seen. Stable spiculated nodule at the right lung apex. Dictated by: Jayjay Belle M.D. on 03/25/2021 at 15:41 Approved by: Jayjay Belle M.D. on 03/25/2021 at 15:44
--- NOTE | 2021-03-25 15:19 | DI.RAD.S_ITS ---
PROCEDURE: XR THORACIC SPINE 2V INDICATIONS: fall with pain TECHNIQUE: 2 views of the thoracic spine were acquired. COMPARISON: [facility], CT, CT CERVICAL SPINE WO CON, 03/25/2021, 15:55. [facility], CT, CT CHEST WO CON, 09/19/2020, 10:35. [facility], CT, CT ABDOMEN PELVIS WO CON, 12/06/2020, 15:56. [facility], CR, THORACIC SPINE 3 VIEWS, 10/15/2016, 16:12. FINDINGS: This examination is limited by involuntary motion artifact. Bones: No acute appearing fractures or dislocations. Chronic appearing anterior wedge deformities are again seen at T11 and T12. No suspicious bony lesions. 12 pairs of ribs are noted, and appear intact where visualized. [id number] levoconvex thoracolumbar scoliosis is seen. Age-appropriate bony degenerative changes are seen. Soft tissues: No paravertebral stripe thickening. Upper abdominal postoperative clips are seen. Sternotomy wires and an aortic valve prosthesis can be seen. Atherosclerotic calcification is noted. IMPRESSION: No valente, acute fractures are seen on this limited plain film study. If there is point tenderness (or other clinical suspicion for a fracture not seen on these images) then a dedicated CT could be considered for further evaluation, if clinically appropriate. Postoperative and degenerative changes are seen. Dictated by: Jayjay Belle M.D. on 03/25/2021 at 15:39 Approved by: Jayjay Belle M.D. on 03/25/2021 at 15:41
[2021-03-25 18:05] VITALS: BP 180/95; PULSE 90; RESP 16; O2SAT 99
--- NOTE | 2021-03-25 18:34 | ED.FALL ---
HPI - Fall General Chief Complaint: Fall Stated Complaint: back & neck pain s/p fall 03/20/21 Time Seen by Provider: 03/25/21 18:05 Source: patient Mode of arrival: Ambulatory History of Present Illness HPI Narrative: 80-year-old female. Not on anticoagulation. Has had balance issues in the past. Approximately he 5 days ago stated that she was getting up off the toilet. Was walking towards the door. Became lightheaded. Fell. Hit her head. No loss of consciousness. Was able to get up and walk afterwards but since that time has had upper back and neck discomfort. She has had significant cervical spine surgeries in the past with fusions. She is here because she was having continued discomfort in the area. No upper or lower extremity symptoms. No lower back symptoms. She states she has become lightheaded in the past but is been several years ago. This event she was not having chest pain or shortness of breath. No fast or slow heart rate. No fevers. Related Data Home Medications Medication Instructions Recorded Confirmed multivitamin (Multiple Vitamins) 1 tab PO DAILY #0 01/01/17 01/21/21 melatonin 10 mg tablet 10 mg PO BEDTIME 10/29/17 01/21/21 polyethylene glycol 3350 17 17 gm PO DAILY 10/29/17 01/21/21 gram/dose oral powder vit C 250 mg-vit E 90 mg-zinc 40 1 tab PO BID #0 10/29/17 01/21/21 mg-copper 1 [id number] capsule (PreserVision AREDS-2) cyclosporine 0.05 % eye drops in a 1 drop EYE-BOTH BID each 05/04/18 01/21/21 dropperette (Restasis) aspirin 81 mg tablet,delayed 81 mg PO DAILY 01/20/19 01/21/21 release cholecalciferol (vitamin D3) 50 2,000 unit PO DAILY 01/20/19 01/21/21 mcg (2,000 unit) capsule (Vitamin D3) docusate sodium 100 mg capsule 200 mg PO BID cap 04/11/20 01/21/21 (Colace) sennosides 8.6 mg tablet (Natural 8.6 mg PO BID 04/11/20 01/21/21 Senna Laxative) magnesium 250 mg tablet 250 mg PO DAILY 04/16/20 01/21/21 mirtazapine 7.5 mg tablet 7.5 mg PO BEDTIME 04/16/20 01/21/21 vitamin B complex 1 cap PO DAILY 04/16/20 01/21/21 zinc 50 mg capsule 50 mg PO DAILY 04/16/20 01/21/21 ferrous sulfate 325 mg (65 mg 325 mg PO DAILY 06/25/20 01/21/21 iron) tablet (iron) Previous Rx's Medication Instructions Recorded Disabled Parking Placard #1 ea 05/04/18 sodium,potassium,mag sulfates 17.5 177 ml PO DAILY #354 ml 04/18/20 gram-3.13 gram-1.6 gram oral soln rosuvastatin 20 mg tablet See Rx Instructions .ROUTE 05/01/20 .COMPLEX #90 tablet gabapentin 400 mg capsule 400 mg PO BID #120 cap 08/07/20 amitriptyline 25 mg tablet 25 - 50 mg PO BEDTIME #120 tab 01/20/21 gabapentin 800 mg tablet 800 mg PO BEDTIME #90 tab 01/20/21 levothyroxine 75 mcg tablet See Rx Instructions .ROUTE 01/20/21 .COMPLEX #90 tab omeprazole 40 mg capsule,delayed 40 mg PO BID #180 cap 01/20/21 release Allergies Allergy/AdvReac Type Severity Reaction Status Date / Time ampicillin [AMPICILLIN] Allergy Severe BLOODY Verified 03/25/21 15:09 DIARRHEA Iodinated Contrast Media Allergy Severe ANAPHYLAXIS Verified 03/25/21 15:09 [IODINATED CONTRAST MEDIA - IV DYE] oxycodone [OXYCODONE] AdvReac Intermediate MAKES ME Verified 03/25/21 15:09 MEAN, CHANGE OF PERSONALITY adhesive [ADHESIVE] AdvReac Mild REDNESS Verified 03/25/21 15:09 Review of Systems Constitutional Constitutional: Denies fatigue, Denies fever(s), Denies frequent falls and Denies headache(s) Eyes Eyes: Reports system reviewed and no additional complaints, except as documented ENT Ears, Nose, Mouth, and Throat: Denies headache(s) Cardiovascular Cardiovascular: Reports system reviewed and no additional complaints, except as documented Respiratory Respiratory: Reports as per HPI and Reports system reviewed and no additional complaints, except as documented Gastrointestinal Gastrointestinal: Reports as per HPI and Reports system reviewed and no additional complaints, except as documented Musculoskeletal Musculoskeletal: Reports system reviewed and no additional complaints, except as documented Integumentary/Breasts Skin/Breast: Reports system reviewed and no additional complaints, except as documented and Reports as per HPI Neurologic Neurologic: Denies frequent falls and Denies headache(s) Endocrine Endocrine: Denies fatigue Hematologic/Lymphatic On Anticoagulants: No Allergic/Immunologic Allergic/Immunologic: Reports system reviewed and no additional complaints, except as documented Patient History Medical History Acute CVA (cerebrovascular accident) Aortic stenosis Chronic obstructive pulmonary disease Constipation Coronary artery disease Current smoker (05/17/12) Dermatitis 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) GERD (gastroesophageal reflux disease) History of aortic valve replacement with bioprosthetic valve (10/23/10) Hyperlipidemia Hypertension Hypothyroidism Macular degeneration Malignant neoplasm of lung Mitral valve disorder Nocturnal hypoxia Non Hodgkin's lymphoma Osteoarthritis (07/23/10) Osteoporosis (~2015) Peripheral neuropathy Pulmonary embolism Raynaud's disease (05/17/12) 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) Surgical History H/O total hysterectomy History of appendectomy History of cataract removal with insertion of prosthetic lens History of cholecystectomy History of lumpectomy of left breast History of lung surgery (1993) Hx of aortic valve replacement (07/2013) Hx of fusion of cervical spine (~03/2004) Hx of hysterectomy (~04/1987) Status post cholecystectomy Family History Mother Cancer Colon cancer Heart disease Father Lung cancer Brother Lung cancer Sister CVA (cerebral vascular accident) Heart disease Daughter Myocardial infarction Social History marital status: unknown household members: none Smoking Status: Former smoker Tobacco: How many years used: 50 second hand exposure: Yes alcohol intake: current substance use type: does not use Smoking Status: Former smoker alcohol intake frequency: holidays/special occasions only Substance Use Type: does not use Exam Initial Vital Signs Initial Vital Signs: Vital Signs Temperature 97.0 F L 03/25/21 15:08 Pulse Rate 97 H 03/25/21 15:08 Respiratory Rate 15 03/25/21 15:08 Blood Pressure 144/68 H 03/25/21 15:08 Pulse Oximetry 94 03/25/21 15:08 Const General: cooperative, comfortable and well developed [facility] Head: normocephalic and contusion (Scalp contusion posterior/occipital region.) Eyes General: appearance normal, both eyes and all related structures Resp Effort & Inspection: normal respiratory effort Auscultation: clear to auscultation bilaterally Cardio Rate: regular rate Rhythm: regular rhythm Back/Spine/Pelvis Cervical Spine: cervical muscular tenderness and cervical spinal tenderness Thoracic/Lumbar Spine: paraspinal tenderness, thoracic spinal tenderness and No lumbar spinal tenderness Skin General: no rashes or lesions noted Neuro General: patient alert, patient awake, patient oriented x3 and moves all extremities Extrem General: normal to inspection and capillary refill normal Psych Appearance: grossly normal and well kempt Scores [facility] [place] coma scale eye opening: Spontaneous [place] coma scale verbal response: Orientated [place] coma scale motor response: Obey commands Lisa coma scale total score: 15 Course Orders Ordered: ED Orders 03/25/21 15:18 CT cervical spine wo con Stat 03/25/21 15:19 XR thoracic spine 2V Stat 03/25/21 18:24 EKG-12 Lead Stat Vital Signs Vital signs: Vital Signs - 8 hr 03/25/21 18:05 Pulse Rate 90 Respiratory Rate 16 Blood Pressure 180/95 H Pulse Oximetry 99 MDM - Fall Imaging Data CT - cervical spine: Radiologist's Impression: [place] [address] CT Scan Report Signed Patient: Fabien Xiong MR#: [id number] : 1940 Acct:[id number] Age/Sex: 80 / F Date of Service: 03/25/21 Loc: ED Accession Number: [id number] ?? Procedure: CT cervical spine wo con Ordering Provider: Aracelis Fuller MD PROCEDURE:? CT CERVICAL SPINE WO CON ? INDICATIONS:? fall with pain ? TECHNIQUE:? Noncontrast 3 mm thick sections acquired from the skull base to the T4 level.? Sagittal and coronal reformats were then constructed.? For radiation dose reduction, the following was used:? automated exposure control, adjustment of mA and/or kV according to patient size.? ? COMPARISON:? [facility], CR, XR THORACIC SPINE 2V, 03/25/2021, 15:22.? [facility], CT, CT CHEST WO CON, 09/19/2020, 10:35. ? FINDINGS:? Image quality:? Excellent.? ? Bones:? No fractures or dislocations.? Visualized superior ribs are intact.? ? Extensive cervical spine fixation hardware is seen, with bilateral pedicle screws seen C2 through T1.? The Bone grafting material is noted.? ? Soft tissues:? Prevertebral soft tissues are normal in thickness.? No paravertebral hematomas.? No apical pneumothoraces.? Atherosclerotic calcification is noted.? Emphysematous changes are seen at the lung apices.? A spiculated nodule is again seen at the right lung apex. ? ? IMPRESSION:? No acute fracture is seen. ? Extensive fixation hardware is seen. ? Stable spiculated nodule at the right lung apex.? Dictated by: Jayjay Belle M.D. on 03/25/2021 at 15:41 ? ? Approved by: Jayjay Belle M.D. on 03/25/2021 at 15:44 Thoracic spine x-ray: Radiologist's Impression: [place] [address] XRay Report Signed Patient: Fabien Xiong MR#: [id number] : 1940 Acct:[id number] Age/Sex: 80 / F Date of Service: 03/25/21 Loc: ED Accession Number: [id number] ?? Procedure: XR thoracic spine 2V Ordering Provider: Aracelis Fuller MD PROCEDURE:? XR THORACIC SPINE 2V ? INDICATIONS:? fall with pain ? TECHNIQUE:? 2 views of the thoracic spine were acquired.? ? COMPARISON:? [facility], CT, CT CERVICAL SPINE WO CON, 03/25/2021, 15:55.? [facility], CT, CT CHEST WO CON, 09/19/2020, 10:35.? [facility], CT, CT ABDOMEN PELVIS WO CON, 12/06/2020, 15:56.? [facility], CR, THORACIC SPINE 3 VIEWS, 10/15/2016, 16:12. ? FINDINGS:? This examination is limited by involuntary motion artifact.? ? Bones:? No acute appearing fractures or dislocations.? Chronic appearing anterior wedge deformities are again seen at T11 and T12.? No suspicious bony lesions.? 12 pairs of ribs are noted, and appear intact where visualized.? ? [id number]-[id number] levoconvex thoracolumbar scoliosis is seen.? Age-appropriate bony degenerative changes are seen.? ? Soft tissues:? No paravertebral stripe thickening.? Upper abdominal postoperative clips are seen.? Sternotomy wires and an aortic valve prosthesis can be seen. Atherosclerotic calcification is noted.? ? ? IMPRESSION:? No valente, acute fractures are seen on this limited plain film study. ? If there is point tenderness (or other clinical suspicion for a fracture not seen on these images) then a dedicated CT could be considered for further evaluation, if clinically appropriate. ? Postoperative and degenerative changes are seen.? ? ? Dictated by: Jayjay Belle M.D. on 03/25/2021 at 15:39 ? ? Approved by: Jayjay Belle M.D. on 03/25/2021 at 15:41 MDM Narrative Medical decision making narrative: Patient has a contusion on her scalp consistent with her fall a couple days ago. She has no extremity discomfort. Has cervical spinal tenderness and also paraspinal and thoracic tenderness. CT scans and x-rays do not show any signs of fractures. I did discuss this with the patient. She has Tylenol and ibuprofen at home which she states she will use for the discomfort. Patient was given care instructions and return precautions. She expressed understanding and agreement. Discharge Plan Departure Patient Disposition: Home Clinical Impression: Cervical spine pain, Thoracic spine pain Instructions: Thoracic Back Pain Activity Restrictions/Additional Instructions: Recommend that you continue to take all of your medications as directed. There were no fractures noted on the CT scan/x-rays. Contact your primary doctor for a follow-up. Return to the emergency department for any new or worsening symptoms. Prescriptions: No Action Restasis 0.05 % dropperette 1 drop EYE-BOTH BID 0RF (DME) Disabled Parking Placard Qty: 1 0RF Dose Instruction: As directed Rx Instructions: Patient qualifies for Disabled Parking Placard multivitamin [Multiple Vitamins] 1 EACH tablet 1 tab PO DAILY Qty: 0 0RF rosuvastatin 20 mg tablet See Rx Instructions .ROUTE .COMPLEX Qty: 90 3RF Dose Instruction: TAKE 1 TABLET AT BEDTIME Rx Instructions: TAKE 1 TABLET AT BEDTIME gabapentin 400 mg capsule 400 mg PO BID Qty: 120 0RF Rx Instructions: Take 1 cap each am and afternoon for pain relief. docusate sodium [Colace] 100 mg capsule 200 mg PO BID 0RF sennosides [Natural Senna Laxative] 8.6 mg tablet 8.6 mg PO BID 0RF gabapentin 800 mg tablet 800 mg PO BEDTIME Qty: 90 3RF Rx Instructions: Take 1 tab at night for pain relief. amitriptyline 25 mg tablet 25 - 50 mg PO BEDTIME Qty: 120 3RF levothyroxine 75 mcg tablet See Rx Instructions .ROUTE .COMPLEX Qty: 90 3RF Dose Instruction: TAKE 1 TABLET EVERY DAY Rx Instructions: TAKE 1 TABLET EVERY DAY omeprazole 40 mg capsule,delayed release(DR/EC) 40 mg PO BID Qty: 180 3RF sodium,potassium,mag sulfates 17.5-3.13-1.6 gram recon soln 177 ml PO DAILY Qty: 354 0RF Rx Instructions: Please take medication per [facility] written instructions. PreserVision AREDS-2 [id number] Capsule 1 tab PO BID Qty: 0 0RF polyethylene glycol 3350 527 GM powder 17 gm PO DAILY 0RF Label Comments: 1-2 capfuls daily melatonin 10 mg Tablet 10 mg PO BEDTIME 0RF magnesium 250 mg Tablet 250 mg PO DAILY 0RF vitamin B complex Capsule 1 cap PO DAILY 0RF zinc 50 mg Capsule 50 mg PO DAILY 0RF mirtazapine 7.5 mg Tablet 7.5 mg PO BEDTIME 0RF ferrous sulfate [iron] 325 mg (65 mg iron) tablet 325 mg PO DAILY 0RF Rx Instructions: Take 1 tablet by mouth up to 3 times daily for anemia aspirin 81 mg Tablet,Delayed Release (Dr/Ec) 81 mg PO DAILY 0RF cholecalciferol (vitamin D3) [Vitamin D3] 2,000 unit Capsule 2,000 unit PO DAILY 0RF Referrals: Arabella Patel ARNP [Primary Care Provider] -
== END 2021-03-25 18:40 | disposition home or self-care (01) ==
PROVIDERS: Emergency Provider Emergency Medicine; Family Provider Physician Assistant; PCP Nurse Practitioner
DX: M54.2 Cervicalgia (principal); M54.6 Pain in thoracic spine; W18.30XA Fall on same level, unspecified, initial encounter
CPT/HCPCS: 72070; 72125; 99281; 99284

== ENCOUNTER → 2021-07-09 11:30 | Outpatient (CLI) | payer MEDICARE, OTHER, SELFPAY ==
[2020-05-15 10:05] VITALS: BMI 24.4
--- NOTE | 2021-07-09 11:32 | DI.CT.S_ITS ---
PROCEDURE: CT CHEST WO CON INDICATIONS: right lung cancer TECHNIQUE: Noncontrast 5 mm thick sections acquired from the pulmonary apices to the posterior costophrenic angles. 1 mm lung window, 5 mm thick coronal and sagittal and 7 mm axial MIP reformats were then acquired. For radiation dose reduction, the following was used: automated exposure control, adjustment of mA and/or kV according to patient size. COMPARISON: [place], [place] PET CT FUSION SKULL 2 THIGH, 04/23/2021, 11:05. [place], [place] PET CT FUSION SKULL 2 THIGH, 10/02/2020, 9:31. [facility], CT, CT CHEST WO CON, 09/19/2020, 10:35. [facility], CT, CT CHEST WO CON, 03/26/2020, 11:24. FINDINGS: Image quality: Excellent. Lungs and pleura: There is volume loss in the medial right lung apex adjacent to the previously seen medial right apical nodule with low level FDG activity measuring 2.1 x 1.3 cm (46/3), not significantly changed in size when compared to the CT from 09/19/2020 when remeasured similarly. Medial right upper lobe nodule is seen measuring 2.4 x 1.9 cm (86/3), increased in size when compared to the CT from 09/19/2020, when it measured 1.3 cm maximum dimension. This nodule demonstrated hypermetabolic activity on prior PET CTs. Right lower lobe spiculated nodule is redemonstrated measuring 1.2 x 1.1 cm (191/3), previously measuring 0.8 cm on 09/19/2020. Stable bilateral benign calcified granulomas. Moderate to severe emphysematous changes. No acute air space opacities. No pleural effusions or pneumothorax. Central and peripheral airways are patent and normal in caliber. Mediastinum: Heart size is normal. No pericardial effusion. Prosthetic aortic valve is noted. No mediastinal adenopathy by size criteria. Main pulmonary artery is markedly enlarged, measuring up to 4.1 cm in diameter. Ascending thoracic aorta measures up to 3.8 cm. Severe aortic atherosclerotic calcifications. Esophagus is normal in caliber. No hiatal hernia. Bones and chest wall: Sternotomy wires are noted. Postsurgical changes are seen involving the left 6th rib. No suspicious bony lesions. Mild anterior wedging of the T1 and T2 vertebral bodies is new when compared to the CT from 09/19/2020. No axillary or supraclavicular adenopathy by size criteria. Thyroid is unremarkable. Abdomen: Status post cholecystectomy. Coarse calcifications in the liver are likely related to prior granulomatous disease. 1.9 x 1.2 cm left adrenal nodule does not appear significantly changed. IMPRESSION: 1. Posterior right upper lobe mass has increased in size when compared to the CT from 09/19/2020 and PET-CT from 04/23/2021, which was associated with hypermetabolic activity. 2. Increased size of a spiculated right lower lobe nodule is also demonstrated abnormal FDG activity. 3. Right apical nodule with prior low-level FDG activity has not significantly changed. 4. Mild compression fractures of T1 and T2 are new when compared to the CT from 09/19/2020. No definite osteolytic or osteoblastic lesion. Dictated by: Jose Alfredo Grimm M.D. on 07/09/2021 at 14:47 Approved by: Jose Alfredo Grimm M.D. on 07/09/2021 at 15:08
== END ==
PROVIDERS: PCP Nurse Practitioner; Referring Provider Internal Medicine Hematology & Oncology; Visit Provider Internal Medicine Hematology & Oncology
DX: C34.90 Malignant neoplasm of unspecified part of unspecified bronchus or lung (principal); D50.9 Iron deficiency anemia, unspecified; R91.8 Other nonspecific abnormal finding of lung field; M48.54XA Collapsed vertebra, not elsewhere classified, thoracic region, initial encounter for fracture
CPT/HCPCS: 71250

== ENCOUNTER → 2021-08-04 11:26 | Outpatient (CLI) | payer MEDICARE, OTHER, SELFPAY ==
[2020-05-15 10:05] VITALS: BMI 24.4
[2021-08-04 13:55] LABS: COVID19 -Nasal RAPID Negative (Negative)
== END ==
PROVIDERS: PCP Nurse Practitioner; Visit Provider Surgery
DX: Z20.822 Contact with and (suspected) exposure to COVID-19 (principal); Z01.812 Encounter for preprocedural laboratory examination
CPT/HCPCS: 87635; C9803

== ENCOUNTER 2021-08-05 11:26 | Day surgery (SDC) | payer MEDICARE, OTHER, SELFPAY ==
[2020-05-15 10:05] VITALS: BMI 24.4
[2021-07-31 07:14] VITALS: BMI 24.3
[2021-08-05] VITALS (7 sets, daily range): BP systolic 93–157; BP diastolic 41–87; PULSE 85–97; RESP 15–17; TEMP 36.3–37.4; O2SAT 90–100; BMI 24.3
--- NOTE | 2021-08-05 | DI.RAD.S_ITS ---
PROCEDURE: XR CHEST 1V INDICATIONS: PORT-A-CATH TECHNIQUE: One view of the chest was acquired. COMPARISON: [facility], CR, XR CHEST 2V, 09/17/2019, 14:39. FINDINGS: Surgical changes and devices: Aortic valve prosthesis is present. Median sternotomy wires are present and appear intact. Partially imaged cervical spinal fusion hardware. There is a right-sided tunneled port device in place with the distal tip projecting over the mid SVC. Lungs and pleura: No pleural effusions or pneumothorax. Mild hyperaeration with flattening of the hemidiaphragms. Redemonstration of mild chronic appearing diffuse interstitial prominence. No focal consolidations. Mediastinum: Mediastinal contours appear stable. Heart size is normal. Bones and chest wall: No suspicious bony lesions. Overlying soft tissues appear unremarkable. IMPRESSION: 1. Right-sided tunneled port device is in place with distal tip projecting over the mid SVC. 2. Findings compatible with chronic obstructive pulmonary physiology. No acute cardiopulmonary abnormality seen. Dictated by: Shahid Gutierrez M.D. on 08/05/2021 at 17:40 Approved by: Shahid Gutierrez M.D. on 08/05/2021 at 17:43
[2021-08-05] MEDS: ACETAMINOPHEN 325 MG TABLET 975 MG PO (12:26)
[2021-08-05] MEDS: GABAPENTIN 300 MG CAPSULE PO (12:27)
[2021-08-05] MEDS: LACTATED RINGERS 1,000 ML 42 ML IV (12:35)
--- NOTE | 2021-08-05 12:54 | PM.HP.1 ---
History of Present Illness History of Present Illness Date Patient Seen: 08/05/21 Time Patient Seen: 12:54 Chief complaint: PORT-A-CATH PLACEMENT Narrative: 80 y.o woman with squamous cell carcinoma of right lung here for elective port a cath placement. History of previous left sided port a cath for lymphoma . Feeling well today without complaint. 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) GERD (gastroesophageal reflux disease) Heart murmur History of aortic valve replacement with bioprosthetic valve (10/23/10) Hyperlipidemia Hypertension Hypothyroidism Macular degeneration Malignant neoplasm of lung Mitral valve disorder Neuropathy Nocturnal hypoxia Non Hodgkin's lymphoma Osteoarthritis (07/23/10) Osteoporosis (~2015) Peripheral neuropathy Pulmonary embolism Raynaud's disease (05/17/12) 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) Surgical History H/O total hysterectomy History of appendectomy History of cataract removal with insertion of prosthetic lens (2008) History of cholecystectomy History of lumpectomy of left breast History of lung surgery (1994) History of removal of Port-a-Cath (07/04/17) History of surgery Hx of aortic valve replacement (06/22/13) Hx of fusion of cervical spine (~03/2004) Hx of fusion of cervical spine (02/2006) Hx of hysterectomy (~04/1987) Status post cholecystectomy (08/22/09) Family & Social History Family History Mother Cancer Colon cancer Heart disease Father Lung cancer Brother Lung cancer Sister CVA (cerebral vascular accident) Heart disease Daughter Myocardial infarction Social History: household members none Tobacco & Substance use: Tobacco type cigarettes Smoking Status Former smoker Smoking packs per day 1 alcohol intake current alcohol intake frequency a few times a month Substance Use Type does not use Meds Home Medications and Allergies Home Medications Medication Instructions Recorded Confirmed Type multivitamin (Multiple Vitamins) 1 tab PO DAILY #0 01/01/17 08/05/21 History melatonin 10 mg tablet 10 mg PO BEDTIME 10/29/17 08/05/21 History polyethylene glycol 3350 17 17 gm PO DAILY 10/29/17 08/05/21 History gram/dose oral powder vit C 250 mg-vit E 90 mg-zinc 40 1 tab PO BID #0 10/29/17 08/05/21 History mg-copper 1 [id number] capsule (PreserVision AREDS-2) Disabled Parking Placard #1 ea 05/04/18 01/21/21 Rx cyclosporine 0.05 % eye drops in a 1 drop EYE-BOTH BID each 05/04/18 08/05/21 History dropperette (Restasis) aspirin 81 mg tablet,delayed 81 mg PO DAILY 01/20/19 08/05/21 History release cholecalciferol (vitamin D3) 50 2,000 unit PO DAILY 01/20/19 08/05/21 History mcg (2,000 unit) capsule (Vitamin D3) docusate sodium 100 mg capsule 200 mg PO BID cap 04/11/20 08/05/21 History (Colace) sennosides 8.6 mg tablet (Natural 8.6 mg PO BID 04/11/20 08/05/21 History Senna Laxative) magnesium 250 mg tablet 250 mg PO DAILY 04/16/20 08/05/21 History mirtazapine 7.5 mg tablet 7.5 mg PO BEDTIME 04/16/20 08/05/21 History vitamin B complex 1 cap PO DAILY 04/16/20 08/05/21 History sodium,potassium,mag sulfates 17.5 177 ml PO DAILY #354 ml 04/18/20 08/05/21 Rx gram-3.13 gram-1.6 gram oral soln amitriptyline 25 mg tablet 25 - 50 mg PO BEDTIME #120 tab 01/20/21 08/05/21 Rx omeprazole 40 mg capsule,delayed 40 mg PO BID #180 cap 01/20/21 08/05/21 Rx release rosuvastatin 20 mg tablet See Rx Instructions .ROUTE 04/10/21 08/05/21 Rx .COMPLEX #90 tab levothyroxine 75 mcg tablet See Rx Instructions .ROUTE 01/27/22 05/17/22 Rx .COMPLEX #90 tab gabapentin 400 mg capsule 400 mg PO BID #120 cap 07/24/21 08/05/21 Rx gabapentin 800 mg tablet 800 mg PO BEDTIME #90 tab 07/24/21 08/05/21 Rx Allergies Allergy/AdvReac Type Severity Reaction Status Date / Time Iodinated Contrast Media Allergy Severe ANAPHYLAXIS Verified 08/05/21 11:51 [IODINATED CONTRAST MEDIA - IV DYE] ampicillin [AMPICILLIN] AdvReac Severe BLOODY Verified 08/05/21 11:51 DIARRHEA oxycodone [OXYCODONE] AdvReac Intermediate MAKES ME Verified 08/05/21 11:51 MEAN, CHANGE OF PERSONALITY adhesive [ADHESIVE] AdvReac Mild REDNESS Verified 08/05/21 11:51 Exam Vital Signs (past 8 hours): - 08/05/21 12:23 08/05/21 12:30 Temperature 99.4 F Pulse Rate 92 H Respiratory Rate 16 Blood Pressure 157/87 H Pulse Oximetry 90 L 100 Oxygen Delivery Method Nasal Cannula Oxygen Flow Rate 3 Narrative Exam Narrative: Gen-Elderly woman alert thin Chest-Non labored resp Ext-WWP Assessment & Plan Assessment and plan (1) Venous insufficiency: Status: Acute Assessment & Plan narrative: 80 y.o woman with right lung cancer here for port a cath placement. Operative details discussed. Operative risks including bleeding, infection, pneumothorax device malfunction were discussed. Questions have been answered and she is in agreement with this plan. Time Spent With Patient Critical Care time: I spent a total of [] minutes of critical care time on this patient's care today; this time is exclusive of procedural time.
[2021-08-05] MEDS: CEFAZOLIN 2 GM/20 ML SYRINGE IV (13:33)
--- NOTE | 2021-08-05 13:43 | SUR.OPER ---
Supine on padded OR bed, head on pillow, arms padded and tucked at sides, legs uncrossed, pillow x1 under knees, safety belt at thigh, tape over blanket over lower legs .
[2021-08-05] MEDS: HEPARIN 5,000 UNIT, SODIUM CHLORIDE 0.9% 50 ML IV (13:47)
[2021-08-05] MEDS: BUPIVACAINE 0.5% (PF) VIAL 30 ML INJ (13:47)
--- NOTE | 2021-08-05 14:09 | PM.OP.1 ---
Operative Date/Time/Diagnoses Date of procedure: 08/05/21 Time of procedure: 14:09 Pre-op diagnosis: lung cancer Post-op diagnosis: same Procedure & Clinicians Procedure: port a cath placement Same procedure as scheduled: Yes Indications: right lung cancer Surgeon: John Lance Click Yes if Unassisted: Yes Anesthesia Type: General Operative Notes Findings: tip of the catheter within the SVC Estimated Blood Loss (mL): 10 Procedure in detail: Patient was brought to the operating room placed supine on table. Bilateral lower extremity compressive devices were applied. General anesthesia was induced and he was intubated with an LMA. She was then prepped and draped in usual sterile fashion. Time-out was performed ensure the correct patient procedure necessary equipment within the operating room. She received 2 g of Ancef prior to incision. Under ultrasound guidance the right internal jugular vein was accessed under direct visualization. The guidewire was then threaded through the needle. Its placement was then confirmed using fluoroscopy. The dilator was then placed over the guidewire. The catheter was then inserted through the sheath. Placement was again confirmed with fluoroscopy. A subcutaneous pocket was made in the right chest wall. The tunneler device was used to move the catheter from the neck to the chest pocket. The port was attached after it was primed with heparined saline. The port was tested to ensure that it flushed easily and had good blood return. The port was then secured to the underlying fascia using interupted 0 Prolene suture. Hemostasis was achieved. The wound was irrigated with sterile saline. The subcutaneous tissues were reapproximated with the 3 0 Vicryl and then skin closed with 4-0 Monocryl. The skin was sealed with Dermabond. Patient tolerated procedure well. The sponge and instrument count at the end operation was correct. Patient emerged from general anesthesia was extubated and taken to the postoperative care unit in stable condition Complications: none Post-operative Condition: stable Disposition: same day surgery
--- NOTE | 2021-08-05 14:41 | SUR.PHASEII ---
To OPD to Kenyetta Eugene and [facility] EUGENE.
== END 2021-08-05 14:57 | disposition home or self-care (01) ==
PROVIDERS: PCP Nurse Practitioner; Referring Provider Surgery; Visit Provider Surgery
PROC: (CPT 36561; principal; 2021-08-05 13:00)
DX: C34.91 Malignant neoplasm of unspecified part of right bronchus or lung (principal); I10 Essential (primary) hypertension; J44.9 Chronic obstructive pulmonary disease, unspecified; K21.9 Gastro-esophageal reflux disease without esophagitis; E03.9 Hypothyroidism, unspecified
CPT/HCPCS: 36561; 71045; 76000; 93005; 93010; C1788; J0690; J1100; J1644; J2405; J2704

== ENCOUNTER → 2021-09-11 13:52 | Outpatient (CLI) | payer MEDICARE, OTHER, SELFPAY ==
[2020-05-15 10:05] VITALS: BMI 24.4
--- NOTE | 2021-09-11 13:53 | DI.CT.S_ITS ---
PROCEDURE: CT CHEST WO CON INDICATIONS: lung cancer TECHNIQUE: Noncontrast 5 mm thick sections acquired from the pulmonary apices to the posterior costophrenic angles. 1 mm lung window, 5 mm thick coronal and sagittal and 7 mm axial MIP reformats were then acquired. For radiation dose reduction, the following was used: automated exposure control, adjustment of mA and/or kV according to patient size. COMPARISON: [facility], CT, CT CHEST WO CON, 07/09/2021, 11:48. FINDINGS: Image quality: Excellent. Lungs and pleura: Right-sided lesions are as follows: Lesion 1: The medial right apical lesion is stable in size or slightly decreased in size since the prior study. On previous image 46/3, I measure it as being 2.1 x 1.2 cm. On current image 54/3, the lesion measures 1.9 x 1.1 cm. Lesion 2: Interval growth of the medial right upper lobe lesion. It was previously measured as 2.4 x 1.9 cm prior image 86/3. In order to make measurements at the site of maximum dimension on the current study, prior image 18/2 is compared to current image 18/2. The lesion has increased in size from 2.1 x 2.0 cm to the current measurements of 2.6 x 2.1 cm. Lesion 3: Spiculated right lower lobe, stable or minimally increased in size. It previously measured 1.2 x 1.1 cm. It now measures 1.2 x 1.2 cm. No acute air space opacities. Bilateral calcified granulomata.. Moderate to severe centrilobular emphysema. No pleural effusions or pneumothorax. Central and peripheral airways are patent and normal in caliber. Mediastinum: Heart size is normal. No pericardial effusion. No mediastinal adenopathy by size criteria. Thoracic aorta is normal in caliber. There is significant enlargement of the main pulmonary artery consistent with pulmonary arterial hypertension. Extensive great vessel calcifications. Suspect severe left common carotid artery stenosis. Esophagus is normal in caliber. No hiatal hernia. Bones and chest wall: Midline sternotomy wires. Postsurgical changes involving the left 6th rib. Unchanged compression fractures of T1 and T2 relative to the previous study. No lytic or blastic bony lesions identified. No axillary or supraclavicular adenopathy by size criteria. Thyroid gland is unremarkable as visualized . Abdomen: Visualized upper abdominal solid organs and bowel loops appear normal in the absence of contrast. IMPRESSION: 1. The largest of the 3 right lung lesions has definitely increased in size. The right apical lesion is stable or minimally decreased in size. The right lower lobe lesion is stable or minimally increased in size. 2. No new pulmonary nodules. 3. Moderate to severe centrilobular emphysema. 4. Pulmonary arterial hypertension. 5. Probable severe left common carotid artery stenosis. 6. Stable old compression fractures of T1 and T2. Dictated by: Geoff Almaguer M.D. on 09/12/2021 at 10:41 Approved by: Geoff Almaguer M.D. on 09/12/2021 at 10:58
== END ==
PROVIDERS: PCP Nurse Practitioner; Referring Provider Internal Medicine Hematology & Oncology; Visit Provider Internal Medicine Hematology & Oncology
DX: C34.11 Malignant neoplasm of upper lobe, right bronchus or lung (principal); R91.8 Other nonspecific abnormal finding of lung field; J43.2 Centrilobular emphysema; I27.21 Secondary pulmonary arterial hypertension; M48.54XS Collapsed vertebra, not elsewhere classified, thoracic region, sequela of fracture
CPT/HCPCS: 71250

== ENCOUNTER → 2021-10-07 11:37 | Outpatient (CLI) | payer MEDICARE, OTHER, SELFPAY ==
[2020-05-15 10:05] VITALS: BMI 24.4
[2021-10-07 12:43] LABS: Add Manual Diff / Slide Review NO; Basophils Absolute Auto 100 /uL (0-100); Basophils Percent Auto 0.9 % (0-2); Eosinophils Absolute Auto 200 /uL (0-450); Hematocrit 33.5 % (36-46); Hemoglobin 11.3 g/dL (12.0-16.0); Lymphocytes Absolute Auto 1400 /uL (1100-4500); Lymphocytes Percent Auto 24.7 % (25-40); Mean Corpuscular HGB Conc 33.6 % (30-36); Mean Corpuscular Hemoglobin 28.3 PG (26-34); Mean Corpuscular Volume 84.1 fL (80-100); Monocytes Absolute Auto 500 /uL (0-900); Monocytes Percent Auto 7.9 % (3-14); Neutrophils Absolute Auto 3700 /uL (1500-7000); Neutrophils Percent Auto 63.5 % (50-75); Platelet Count 221 X10^3/uL (150-400); Red Blood Cell Count 3.98 X10^6/uL (4.0-5.2); Red Cell Distribution Width 15.4 % (11.6-14.8); White Blood Cell Count 5.8 X10^3/uL (4.5-11.0)
[2021-10-07 12:58] LABS: Alanine Aminotransferase 11 IU/L (<35); Albumin 4.2 g/dL (3.5-5.0); Albumin Globulin Ratio 1.7 (1.0-2.8); Alkaline Phosphatase 93 U/L (38-126); Aspartate Aminotransferase 25 IU/L (14-36); BUN Creatinine Ratio 16.9 (6-22); Bilirubin Total 0.4 mg/dL (0.2-1.3); Blood Urea Nitrogen 10 mg/dL (7-17); Calcium 9.2 mg/dL (8.4-10.2); Carbon Dioxide 32 mmol/L (22-32); Chloride 96 mmol/L (98-107); Estimated Glomerular Filt Rate > 60 mL/min (>60); Globulin 2.5 g/dL (1.7-4.1); Glucose 117 mg/dL (80-110); HEMOLYSIS < 15 (0-50); Potassium 3.7 mmol/L (3.4-5.1); Sodium 136 mmol/L (137-145); Total Protein 6.7 g/dL (6.3-8.2)
[2021-10-07 13:10] LABS: Cholesterol 117 mg/dL (140-199); HDL Cholesterol 54 mg/dL (40-60); LDL Cholesterol Calculated 47 mg/dL (<100); Triglycerides 78 mg/dL (35-150)
[2021-10-07 13:28] LABS: HEMOLYSIS < 15 (0-50); Iron 48 ug/dL (37-170)
[2021-10-07 13:29] LABS: Percent Iron Saturation 13 % (15-50); Total Iron Binding Capacity 356 ug/dL (265-497); Transferrin 272 mg/dL (206-381)
[2021-10-07 13:31] LABS: Ferritin 27 ng/mL (11-264)
[2021-10-07 13:40] LABS: Free T3, Triiodothyronine Free 2.95 pg/mL (2.77-5.27); Free T4, Direct Thyroxine 1.57 ng/dL (0.78-2.19)
[2021-10-07 13:53] LABS: Thyroid Stimulating Hormone 3.22 uIU/mL (0.47-4.68)
[2021-10-07 15:26] LABS: Creatinine Urine Random 58.5 mg/dL
[2021-10-07 15:32] LABS: Microalbumi Creatinin Ratio Ur 109.4 ug/mg CR (<30); Microalbumin Urine Random 6.4 mg/dL (0-1.6)
== END ==
PROVIDERS: Internal Medicine Hematology & Oncology; PCP Nurse Practitioner; Referring Provider Nurse Practitioner; Visit Provider Nurse Practitioner
DX: E03.9 Hypothyroidism, unspecified (principal); E11.9 Type 2 diabetes mellitus without complications; E78.5 Hyperlipidemia, unspecified; I10 Essential (primary) hypertension; C34.11 Malignant neoplasm of upper lobe, right bronchus or lung
CPT/HCPCS: 36415; 80053; 80061; 82043; 82570; 82728; 83540; 83550; 84439; 84443; 84481; 85025

== ENCOUNTER → 2021-11-06 14:57 | Outpatient (CLI) | payer MEDICARE, OTHER, SELFPAY ==
[2020-05-15 10:05] VITALS: BMI 24.4
--- NOTE | 2021-11-06 14:59 | DI.CT.S_ITS ---
PROCEDURE: CT CHEST WO CON INDICATIONS: lung cancer to evalute response TECHNIQUE: Noncontrast 5 mm thick sections acquired from the pulmonary apices to the posterior costophrenic angles. 1 mm lung window, 5 mm thick coronal and sagittal and 7 mm axial MIP reformats were then acquired. For radiation dose reduction, the following was used: automated exposure control, adjustment of mA and/or kV according to patient size. COMPARISON: [facility], CT, CT CHEST WO CON, 07/09/2021, 11:48. [facility], CT, CT CHEST WO CON, 09/11/2021, 14:00. FINDINGS: Image quality: Excellent. Lungs and pleura: There is severe centrilobular emphysema. A right-sided paraesophageal mass is redemonstrated which measures approximately 2.6 x 2.5 cm on the current study and measured 2.5 x 2.5 cm on the study dated September 11, 2021. There is bilateral apical scarring, as before. A 1.3 cm spiculated mass is redemonstrated within the right lower lobe which previously measured 1.2 cm in diameter (series 3/image 199). A 0.6 cm spiculated mass is redemonstrated at the right lung base, unchanged from the prior study (series 3/image 219). No new pulmonary nodules. No acute airspace opacities. No pleural effusion or pneumothorax. Mediastinum: Heart size is normal. No pericardial effusion. No mediastinal adenopathy by size criteria. Thoracic aorta and central pulmonary arteries are normal in size. Scattered atheromatous calcifications are present within the aortic arch. Esophagus is normal in caliber. No hiatal hernia. Bones and chest wall: No suspicious bony lesions. No vertebral body compression fractures. No axillary or supraclavicular adenopathy by size criteria. Thyroid gland is not well characterized. There is a right Port-A-Cath, the tip of which is in the SVC. Abdomen: Visualized upper abdominal solid organs and bowel loops appear normal in the absence of contrast. IMPRESSION: 1. Overall stable appearance of a right superior periesophageal mass and spiculated nodules within the right lower lobe when compared with the study dated September 11, 2021. Dictated by: Shruti Sotomayor M.D. on 11/06/2021 at 17:01 Approved by: Shruti Sotomayor M.D. on 11/06/2021 at 17:11
--- NOTE | 2021-11-06 14:59 | DI.US.S_ITS ---
PROCEDURE: US ABDOMEN COMPLETE INDICATIONS: abdominal discomfort TECHNIQUE: Real-time scanning was performed of the abdominal and retroperitoneal organs, with image documentation. COMPARISON: [facility], [place], AR PET CT FUSION SKULL 2 THIGH, 04/23/2021, 11:05. [facility], [place], ABDOMEN COMPLETE, 10/08/2016, 8:18. FINDINGS: Liver: Liver is normal in size and homogeneous in echotexture. Gallbladder: Status post cholecystectomy. Biliary ducts: Intrahepatic bile ducts are non-dilated. Extrahepatic bile duct caliber measures three mm. Normal is 6-7 mm or less in diameter, or 10 mm or less post-cholecystectomy. Pancreas: Visualized portions of the pancreas are sonographically normal. Spleen: Spleen is normal in size and homogeneous in echotexture. Kidneys: Kidneys are normal in size and echotexture. Right kidney measures 9.9 cm long; left kidney measures 9.6 cm long. No hydronephrosis. Previously seen nonobstructing right renal calculus is not visualized. No solid masses. Aorta: There is mild ectasia of the infrarenal abdominal aorta, which measures up to 2.4 cm in anterior-posterior dimension. Iliacs: Proximal common iliac arteries are normal in caliber at less than 2.5 cm. IVC: Intrahepatic inferior vena cava is prominent. Miscellaneous: No free abdominal fluid. IMPRESSION: 1. No acute sonographic abnormality in the abdomen. Status post cholecystectomy. 2. 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 Dictated by: Jose Alfredo Grimm M.D. on 11/06/2021 at 17:09 Approved by: Jose Alfredo Grimm M.D. on 11/06/2021 at 17:16
--- NOTE | 2021-11-06 14:59 | DI.MRI.S_ITS ---
PROCEDURE: MR HEAD/BRAIN WO/W CON INDICATIONS: metastatic lung cancer TECHNIQUE: Noncontrast axial T1 spin echo, axial T2 fast spin echo, sagittal and axial FLAIR, coronal T2 fast spin echo, axial gradient echo, axial diffusion and ADC through the brain. After the administration of contrast, axial and coronal and sagittal T1 spin echo with fat saturation through the brain. COMPARISON: [facility], MR, MR HEAD/BRAIN WO/W CON, 11/16/2018, 15:43. [facility], MR, MR HEAD/BRAIN WO/W CON, 07/20/2019, 11:24. [facility], MR, MR HEAD/BRAIN WO/W CON, 09/27/2020, 15:48. FINDINGS: Image quality: This examination is limited by involuntary motion artifact. CSF spaces: Basal cisterns are patent. No extra-axial fluid collections. Ventricles are normal in size and shape. Brain: No midline shift. No intracranial bleeds or masses. No abnormal intracranial enhancement. There is cerebral volume loss for age. There is periventricular white matter chronic small vessel ischemic change. The brainstem appears normal. Diffusion-weighted images demonstrate no acute ischemic insults. No chronic ischemic insults. Normal intravascular flow voids are present. Skull and face: There is a mild area of abnormal enhancement seen involving the left frontal bone, as on series 13, image 120, which is similar to priors. Calvarial marrow is otherwise normal in signal. Orbits appear normal. Note is made of bilateral lens replacements. Sinuses: Sinuses and mastoids appear clear. IMPRESSION: No in intracranial masses or abnormal enhancement can be seen. 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 Dictated by: Jayjay Belle M.D. on 11/06/2021 at 14:49 Approved by: Jayjay Belle M.D. on 11/06/2021 at 14:52
== END ==
PROVIDERS: PCP Nurse Practitioner; Referring Provider Internal Medicine Hematology & Oncology; Visit Provider Nurse Practitioner
DX: C34.11 Malignant neoplasm of upper lobe, right bronchus or lung (principal); I77.811 Abdominal aortic ectasia; R91.8 Other nonspecific abnormal finding of lung field; M89.9 Disorder of bone, unspecified; R10.9 Unspecified abdominal pain; R14.0 Abdominal distension (gaseous); Z90.49 Acquired absence of other specified parts of digestive tract
CPT/HCPCS: 70553; 71250; 76700; A9579

== ENCOUNTER → 2021-11-12 13:24 | Outpatient (CLI) | payer MEDICARE, OTHER, SELFPAY ==
[2020-05-15 10:05] VITALS: BMI 24.4
[2021-11-12 14:22] LABS: BUN Creatinine Ratio 25.9 (6-22); Blood Urea Nitrogen 15 mg/dL (7-17); Estimated Glomerular Filt Rate > 60 mL/min (>60)
== END ==
PROVIDERS: PCP Nurse Practitioner; Referring Provider Nurse Practitioner; Visit Provider Nurse Practitioner
DX: Z01.812 Encounter for preprocedural laboratory examination (principal)
CPT/HCPCS: 36415; 82565; 84520

== ENCOUNTER → 2021-11-13 15:08 | Outpatient (CLI) | payer MEDICARE, OTHER, SELFPAY ==
[2020-05-15 10:05] VITALS: BMI 24.4
--- NOTE | 2021-11-13 15:15 | DI.MRI.S_ITS ---
PROCEDURE: MR ABDOME PELVIS WWO CON INDICATIONS: Suspected bowel obstruction TECHNIQUE: After the ingestion of oral contrast, coronal and axial HASTE, coronal 2-D FLASH in-and [id number] sequences. After the administration of contrast, coronal and axial VIBE or 2-D FLASH with fat saturation sequences acquired through the abdomen and pelvis. Optional diffusion weighted imaging and ADC may be performed. COMPARISON: [facility], US, US ABDOMEN COMPLETE, 11/06/2021, 16:10. FINDINGS: Image quality: Excellent. Bowel and peritoneum: The small bowel is decompressed. Diffuse distension of the large bowel with air and stool. There are few dilated loops of large bowel measuring up to 7 centimeters. No findings of bowel wall thickening or acute bowel wall inflammation. There is no stricture or fibrotic change identified in the bowel wall. No mesenteric or pericolonic edema or fat stranding. Solid organs: No acute finding of the liver, spleen, pancreas, adrenal glands, or kidneys. No intrahepatic or extrahepatic biliary ductal dilatation. Prior cholecystectomy. Nodes and vessels: No retroperitoneal or mesenteric adenopathy. Aorta and inferior vena cava are normal in size. Lung bases: No basal pleural effusions. Heart size is normal. Pelvis: No free pelvic fluid. Inferior bowel loops are normal in caliber. No inguinal hernias or adenopathy. Bones and soft tissues: No ventral hernias. Bone marrow is normal in overall signal. No findings to suggest sacroiliitis. Femoral heads demonstrate no avascular necrosis. IMPRESSION: Diffuse distension of the colon with a few threshold dilated loops. Findings could represent a functional obstruction versus a mechanical obstruction. There is no enhancing mass or stricture identified. Findings were discussed with Dr. Reddy at 5:30PM 11/13/2022. Dictated by: Terrance Malcolm M.D. on 11/13/2021 at 19:32 Approved by: Terrance Malcolm M.D. on 11/13/2021 at 19:36
== END ==
PROVIDERS: PCP Nurse Practitioner; Referring Provider Nurse Practitioner; Visit Provider Nurse Practitioner
DX: K59.00 Constipation, unspecified (principal); D12.6 Benign neoplasm of colon, unspecified; R19.4 Change in bowel habit; R19.5 Other fecal abnormalities
CPT/HCPCS: 36591; 72197; 74183; 80053; 82728; 83540; 83550; 85025; A9579

== ENCOUNTER 2021-11-23 09:55 | Inpatient (IN) | payer MEDICARE, OTHER, SELFPAY ==
[2020-05-15 10:05] VITALS: BMI 24.4
[2021-11-23] VITALS (23 sets, daily range): BP systolic 69–140; BP diastolic 28–70; PULSE 82–112; RESP 17–25; TEMP 36.9–38.6; O2SAT 85–100; BMI 22.6
--- NOTE | 2021-11-23 10:09 | DI.RAD.S_ITS ---
PROCEDURE: XR CHEST 1V INDICATIONS: chest pain TECHNIQUE: One view of the chest was acquired. COMPARISON: [facility], CR, XR CHEST 1V, 08/05/2021, 14:14. FINDINGS: Surgical changes and devices: Right chest port with tip in the superior vena cava. Prior sternotomy. Lungs and pleura: Flattening of diaphragms with prominent central markings. No pleural effusion. No pneumothorax. Mediastinum: Mediastinal contours appear normal. Heart size is normal. Bones and chest wall: No suspicious bony lesions. Stable osseous changes of left ribs. IMPRESSION: 1. 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 2. No acute cardiopulmonary findings. Dictated by: Walter Malcolm M.D. on 11/23/2021 at 9:58 Approved by: Walter Malcolm M.D. on 11/23/2021 at 10:00
--- NOTE | 2021-11-23 10:09 | DI.RAD.S_ITS ---
PROCEDURE: XR ANKLE RT MIN 3V INDICATIONS: fall, ankle pain and swelling TECHNIQUE: 3 views of the ankle were acquired. COMPARISON: [facility], , ANKLE 3 VIEWS RIGHT, 10/30/2015, 13:41. FINDINGS: Distal fibular fracture with mild lateral displacement of fracture fragment. Medial malleolar fracture. Possible posterior malleolar fracture not well appreciated. There is widening of the ankle mortise. Prominent soft tissue edema. . IMPRESSION: Medial and lateral malleolar fractures with suspected posterior malleolar fracture. Dictated by: Walter Malcolm M.D. on 11/23/2021 at 9:53 Approved by: Walter Malcolm M.D. on 11/23/2021 at 9:58
[2021-11-23 10:21] LABS: Add Manual Diff / Slide Review NO; Basophils Absolute Auto 100 /uL (0-100); Basophils Percent Auto 0.8 % (0-2); Eosinophils Absolute Auto 400 /uL (0-450); Eosinophils Percent Auto 5.9 % (2-4); Hemoglobin 9.9 g/dL (12.0-16.0); Lymphocytes Absolute Auto 1500 /uL (1100-4500); Lymphocytes Percent Auto 25.5 % (25-40); Mean Corpuscular Hemoglobin 27.2 PG (26-34); Mean Corpuscular Volume 82.5 fL (80-100); Monocytes Absolute Auto 600 /uL (0-900); Monocytes Percent Auto 9.1 % (3-14); Neutrophils Absolute Auto 3500 /uL (1500-7000); Neutrophils Percent Auto 58.7 % (50-75); Platelet Count 181 X10^3/uL (150-400); Red Blood Cell Count 3.64 X10^6/uL (4.0-5.2); Red Cell Distribution Width 15.5 % (11.6-14.8); White Blood Cell Count 6.1 X10^3/uL (4.5-11.0)
[2021-11-23 10:25] LABS: PTT Partial Thromboplastin Tim 33 SECONDS (26-36)
[2021-11-23 10:31] LABS: Alanine Aminotransferase 13 IU/L (<35); Albumin 3.5 g/dL (3.5-5.0); Albumin Globulin Ratio 1.3 (1.0-2.8); Alkaline Phosphatase 79 U/L (38-126); Aspartate Aminotransferase 22 IU/L (14-36); BUN Creatinine Ratio 30.2 (6-22); Bilirubin Total 0.3 mg/dL (0.2-1.3); Blood Urea Nitrogen 16 mg/dL (7-17); Calcium 8.7 mg/dL (8.4-10.2); Carbon Dioxide 33 mmol/L (22-32); Chloride 99 mmol/L (98-107); Creatine Kinase 30 U/L (30-135); Estimated Glomerular Filt Rate > 60 mL/min (>60); Globulin 2.6 g/dL (1.7-4.1); Glucose 92 mg/dL (80-110); HEMOLYSIS < 15 (0-50); Lipase 122 U/L (23-300); Magnesium 2.2 mg/dL (1.6-2.3); Potassium 4.1 mmol/L (3.4-5.1); Sodium 133 mmol/L (137-145); Total Protein 6.1 g/dL (6.3-8.2)
[2021-11-23 10:35] LABS: COVID19 -Nasal RAPID Negative (Negative)
[2021-11-23 10:42] LABS: Troponin I < 0.012 ng/mL (0.01-0.034)
--- NOTE | 2021-11-23 11:01 | ED_ITS ---
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 She has some left-sided rib pain, her main complaint is her right ankle. Patient denies any headache preceding or afterwards, no active chest pain or pressure, she does have some pain on the left ribs, she denies any shortness of breath. Patient denies any nausea or vomiting. New no new numbness or tingling or weakness in her extremities. She is quite a bit of pain in her right ankle also notes some in her knees. Patient denies any bowel or bladder incontinence. She is low on her oxygen states her pulse ox has been 88-89 in the past but typically runs low 90s she does have home O2 which she uses intermittently. She is anticoagulant aspirin daily, no known prior pulmonary emboli, she is actively immune therapy for her lung cancer. Discussed with patient and her daughter over the phone would like to obtain CT PE to rule out pulmonary emboli she has some increased risk and had a preceding lightheadedness with possible syncope. They states she had anaphylaxis at [facility] states she had contrast she does not know exactly what happened but woke up with a lot of people standing around her, no reported CPR or intubation. Patient's daughters quite adamant that we do not use any contrast in studies, we did discuss we can not rule out pulmonary emboli. She did have prophylactic treatment prior to this CT scan and still had a reaction. They do understand risks versus benefits this was discussed with her, her daughter on the phone as well as friend at bedside nursing was at bedside for this conversation as well. Daughter states that they are willing to bypass this patient's breathe agreeable with daughters recommendation. We did discuss she does have higher risk with her known lung cancer, she is not fully anticoagulated on aspirin. There are certainly other potential causes but we have not ruled this out. Related Data Home Medications Medication Instructions Recorded Confirmed multivitamin (Multiple Vitamins 1 tab PO DAILY ##0 01/01/17 11/23/21 tablet) melatonin 10 mg tablet 10 mg PO BEDTIME 10/29/17 11/23/21 polyethylene glycol 3350 17 17 gm PO DAILY 10/29/17 11/23/21 gram/dose oral powder vit C 250 mg-vit E 90 mg-zinc 40 1 tab PO BID ##0 10/29/17 11/23/21 mg-copper 1 ln-bxnyig-indoxq capsule (PreserVision AREDS-2) cyclosporine 0.05 % eye drops in a 1 drop EYE-BOTH BID 05/04/18 11/23/21 dropperette (Restasis) aspirin 81 mg tablet,delayed 81 mg PO DAILY 01/20/19 11/23/21 release cholecalciferol (vitamin D3) 50 2,000 unit PO DAILY 01/20/19 11/23/21 mcg (2,000 unit) capsule (Vitamin D3) vitamin B complex 1 cap PO DAILY 04/16/20 11/23/21 Previous Rx's Medication Instructions Recorded Disabled Parking Placard #1 ea 05/04/18 sodium,potassium,mag sulfates 17.5 177 ml PO DAILY 2 doses #354 mL 04/18/20 gram-3.13 gram-1.6 gram oral soln rosuvastatin 20 mg tablet See Rx Instructions .Route 04/10/21 .COMPLEX #90 tabs acetaminophen 325 mg capsule 650 mg PO QID PRN pain #60 caps 08/05/21 (Tylenol) mirtazapine 15 mg tablet 15 mg PO BEDTIME #90 tabs 10/08/21 gabapentin 400 mg capsule 400 mg PO BID #180 caps 10/28/21 levothyroxine 50 mcg tablet 50 mcg PO DAILY #90 tabs 10/28/21 omeprazole 40 mg capsule,delayed 40 mg PO BID #180 caps 10/28/21 release amitriptyline 50 mg tablet 50 mg PO BEDTIME #90 tabs 11/05/21 gabapentin 800 mg tablet 800 mg PO BEDTIME #90 tabs 11/19/21 magnesium citrate 150 ml PO DAILY PRN constipation 11/19/21 #296 mL Allergies Allergy/AdvReac Type Severity Reaction Status Date / Time Iodinated Contrast Media Allergy Severe ANAPHYLAXIS Verified 11/19/21 11:34 [IODINATED CONTRAST MEDIA - IV DYE] ampicillin [AMPICILLIN] AdvReac Severe BLOODY Verified 11/19/21 11:34 DIARRHEA oxycodone [OXYCODONE] AdvReac Intermediate MAKES ME Verified 11/19/21 11:34 MEAN, CHANGE OF PERSONALITY adhesive [ADHESIVE] AdvReac Mild REDNESS Verified 11/19/21 11:34 Review of Systems Review of Systems ROS Unobtainable: All systems reviewed & are unremarkable except as noted in HPI and below 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) GERD (gastroesophageal reflux disease) Heart murmur History of aortic valve replacement with bioprosthetic valve (10/23/10) Hyperlipidemia Hypertension Hypothyroidism Macular degeneration Malignant neoplasm of lung Mitral valve disorder Neuropathy Nocturnal hypoxia Non Hodgkin's lymphoma Osteoarthritis (07/23/10) Osteoporosis (~2015) Peripheral neuropathy Pulmonary embolism Raynaud's disease (05/17/12) 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) Surgical History H/O total hysterectomy History of appendectomy History of cataract removal with insertion of prosthetic lens (2008) History of cholecystectomy History of lumpectomy of left breast History of lung surgery (1994) History of removal of Port-a-Cath (07/04/17) History of surgery Hx of aortic valve replacement (06/22/13) Hx of fusion of cervical spine (~03/2004) Hx of fusion of cervical spine (02/2006) Hx of hysterectomy (~04/1987) Status post cholecystectomy (08/22/09) Family History Mother Cancer Colon cancer Heart disease Father Lung cancer Brother Lung cancer Sister CVA (cerebral vascular accident) Heart disease Daughter Myocardial infarction Social History marital status: unknown household members: none Smoking Status: Former smoker Tobacco: How many years used: 50 second hand exposure: Yes alcohol intake: current substance use type: does not use Smoking Status: Former smoker alcohol intake frequency: a few times a month Substance Use Type: does not use Exam Narrative Exam Narrative: GEN: Patient appears in mild distress. HEAD: No evidence of trauma, no raccoon/Jesus sign. NECK: Nontender, painless range of motion, trachea midline Negative for Nexus criteria, there is no midline line tenderness, distracting injury, altered mental status, neuro deficit, recent EtOH. EYES: PERRLA, EOMI ENT: External inspection normal, trachea is midline,Nares are clear, no septal hematoma, no dental or oral injury, airway is normal and with normal occlusion, No bony tenderness RESP: Chest is nontender and has symmetric movement, no ecchymosis, breath sounds are normal no crackles, wheezes or rales CVS: Heart sounds are normal, no murmur noted, No JVD. ABG/GI: Nontender, soft, normal bowel sounds, no distention, no organomegaly, pelvic rock is negative NEURO: Oriented AOx3, neuro is grossly intact, sensation and motor is normal all 4 extremities moving, cranial nerves II through XII are intact, GCS is 15 PSYCH: Normal mood and affect SKIN: Intact, warm and dry, no crepitus and without decubitus BACK: No CVA tenderness, no vertebral tenderness, no step-off's, no crepitus EXT: Patient's right ankle has ecchymosis, patient is slightly plantar flexed, tender bilateral malleoli, patient has 2+ dorsalis pedis with cap refill less than 2 seconds in all 5 toes with normal movement in all 5 toes and sensation to light touch. Patient has tenderness bilateral knees right knee was not taken through range of motion secondary to right ankle injury. Left knee ankle and hip have normal range of motion. Normal color and temperature, normal range of motion of extremities with normal tendon exam, 2+ pulses in all four extremities Initial Vital Signs Initial Vital Signs: Vital Signs Pulse Rate 84 11/23/21 09:58 Blood Pressure 128/70 11/23/21 09:58 Pulse Oximetry 87 L 11/23/21 09:58 Scores GCS Lisa coma scale eye opening: Spontaneous Lisa coma scale verbal response: Orientated Lisa coma scale motor response: Obey commands Lisa coma scale total score: 15 Course Orders Ordered: ED Orders 11/23/21 10:09 XR ankle RT min 3V Stat XR chest 1V Stat EKG-12 Lead Stat 11/23/21 11:39 XR knee RT 3V Stat 11/23/21 12:35 CT head/brain wo con Stat Acetaminophen (Acetaminophen 325 Mg Tablet) 975 mg PO Q8H PRN PRN Reason: Pain, Mild (1-3) Last Admin: 11/23/21 18:48 Dose: 975 mg Documented By: CELSA Albuterol (Albuterol 2.5 Mg/3 Ml Neb (Adult)) 2.5 mg INH [id number] PRN PRN Reason: Shortness Of Breath Albuterol/Ipratropium (Albuterol/Ipratropium 3 Ml Ampul) 3 ml INH [id number] CHRISTINE Amitriptyline HCl (Amitriptyline 25 Mg Tablet) 50 mg PO BEDTIME CHRISTINE Aspirin (Aspirin Ec 81 Mg Tablet) 81 mg PO DAILY CHRISTINE Atorvastatin Calcium (Atorvastatin 20 Mg Tablet) 40 mg PO BEDTIME CHRISTINE Docusate Sodium (Docusate 100 Mg Capsule) 100 mg PO BID CHRISTINE Gabapentin (Gabapentin 400 Mg Capsule) 400 mg PO BID CHRISTINE Gabapentin (Gabapentin 400 Mg Capsule) 800 mg PO BEDTIME CHRISTINE Hydromorphone HCl (Hydromorphone 1 Mg Inj) 1 mg IV Q3H PRN PRN Reason: Pain, Moderate (4-6) Last Admin: 11/23/21 15:44 Dose: 1 mg Documented By: CELSA Levothyroxine Sodium (Levothyroxine 50 Mcg Tablet) 50 mcg PO DAILY CHRISTINE Mirtazapine (Mirtazapine 15 Mg Tablet) 15 mg PO BEDTIME CHRISTINE Ondansetron HCl (Ondansetron 4 Mg/2 Ml Inj) 4 mg IV Q8HR PRN PRN Reason: Nausea And Vomiting Oxycodone HCl (Oxycodone Ir 5 Mg Tablet) 5 mg PO Q4HR PRN PRN Reason: Pain, Moderate (4-6) Last Admin: 11/23/21 18:48 Dose: 5 mg Documented By: Admin: 11/23/21 14:43 Dose: 5 mg Documented By: CELSA Pantoprazole Sodium (Pantoprazole Dr 40 Mg Tablet) 40 mg PO 0700,2100 CHRISTINE Discontinued Medications Oxycodone/Acetaminophen (Oxycodone/Acetaminophen 5/325 Tablet) 2 tab PO NOW ONE Stop: 11/23/21 11:31 Last Admin: 11/23/21 11:47 Dose: 2 tab Documented By: MARCELLA Prednisone (Prednisone 20 Mg Tablet) 40 mg PO NOW ONE Stop: 11/23/21 18:21 Last Admin: 11/23/21 18:50 Dose: 40 mg Documented By: CELSA Consultations Consultation #1: Dr. Verdugo, orthopedic surgery. Would like to take patient to the OR either today or tomorrow, patient is NPO status unlikely today so plan for tomorrow. She does ask for medicine consult patient does have multiple medical issues. Discussed waiting on head CT to rule out bleed and will recontact if this changes patient's disposition. Okay to continue aspirin at this time. Time: 12:02 Consultation #2: Dr. Ratliff, Vital Signs Vital signs: Vital Signs - 8 hr 11/23/21 11:30 11/23/21 12:00 11/23/21 12:30 Pulse Rate 87 85 87 Respiratory Rate 21 22 25 H Pulse Oximetry 98 90 L 11/23/21 13:00 11/23/21 13:30 Pulse Rate 91 H 92 H Respiratory Rate 18 21 Pulse Oximetry 100 99 MDM - Fall Lab Data Result diagrams: 11/23/21 10:00 11/23/21 10:00 Labs: Lab Results 11/23/21 11/23/21 11/23/21 Range/Units 10:00 10:00 10:00 WBC 6.1 (4.5-11.0) X10^3/uL RBC 3.64 L (4.0-5.2) X10^6/uL Hgb 9.9 L (12.0-16.0) g/dL Hct 30.0 L (36-46) % MCV 82.5 (80-100) fL MCH 27.2 (26-34) PG MCHC 33.0 (30-36) % RDW 15.5 H (11.6-14.8) % Plt Count 181 (150-400) X10^3/uL Neut % (Auto) 58.7 (50-75) % Lymph % (Auto) 25.5 (25-40) % Murray % (Auto) 9.1 (3-14) % Eos % (Auto) 5.9 H (2-4) % Baso % (Auto) 0.8 (0-2) % Neut # (Auto) 3500 (0028-6832) /uL Lymph # (Auto) 1500 (4148-7154) /uL Murray # (Auto) 600 (0-900) /uL Eos # (Auto) 400 (0-450) /uL Baso # (Auto) 100 (0-100) /uL PT 12.0 (10.1-12.7) SECONDS INR 1.0 (0.9-1.3) APTT 33 (26-36) SECONDS Sodium 133 L (137-145) mmol/L Potassium 4.1 (3.4-5.1) mmol/L Chloride 99 (98-107) mmol/L Carbon Dioxide 33 H (22-32) mmol/L BUN 16 (7-17) mg/dL Creatinine 0.53 (0.52-1.04) mg/dL Estimated GFR > 60 (>60) mL/min BUN/Creatinine Ratio 30.2 H (6-22) Glucose 92 (80-110) mg/dL Calcium 8.7 (8.4-10.2) mg/dL Magnesium 2.2 (1.6-2.3) mg/dL Total Bilirubin 0.3 (0.2-1.3) mg/dL AST 22 (14-36) IU/L ALT 13 (<35) IU/L Alkaline Phosphatase 79 (38-126) U/L Total Creatine Kinase 30 (30-135) U/L CK-MB (CK-2) TNP CK-MB (CK-2) Rel Index TNP Troponin I < 0.012 (0.01-0.034) ng/mL Total Protein 6.1 L (6.3-8.2) g/dL Albumin 3.5 (3.5-5.0) g/dL Globulin 2.6 (1.7-4.1) g/dL Albumin/Globulin Ratio 1.3 (1.0-2.8) Lipase 122 (23-300) U/L SARS-CoV-2 (PCR) (Negative) 11/23/21 Range/Units 10:00 WBC (4.5-11.0) X10^3/uL RBC (4.0-5.2) X10^6/uL Hgb (12.0-16.0) g/dL Hct (36-46) % MCV (80-100) fL MCH (26-34) PG MCHC (30-36) % RDW (11.6-14.8) % Plt Count (150-400) X10^3/uL Neut % (Auto) (50-75) % Lymph % (Auto) (25-40) % Murray % (Auto) (3-14) % Eos % (Auto) (2-4) % Baso % (Auto) (0-2) % Neut # (Auto) (9339-5140) /uL Lymph # (Auto) (3772-0413) /uL Murray # (Auto) (0-900) /uL Eos # (Auto) (0-450) /uL Baso # (Auto) (0-100) /uL PT (10.1-12.7) SECONDS INR (0.9-1.3) APTT (26-36) SECONDS Sodium (137-145) mmol/L Potassium (3.4-5.1) mmol/L Chloride (98-107) mmol/L Carbon Dioxide (22-32) mmol/L BUN (7-17) mg/dL Creatinine (0.52-1.04) mg/dL Estimated GFR (>60) mL/min BUN/Creatinine Ratio (6-22) Glucose (80-110) mg/dL Calcium (8.4-10.2) mg/dL Magnesium (1.6-2.3) mg/dL Total Bilirubin (0.2-1.3) mg/dL AST (14-36) IU/L ALT (<35) IU/L Alkaline Phosphatase (38-126) U/L Total Creatine Kinase (30-135) U/L CK-MB (CK-2) CK-MB (CK-2) Rel Index Troponin I (0.01-0.034) ng/mL Total Protein (6.3-8.2) g/dL Albumin (3.5-5.0) g/dL Globulin (1.7-4.1) g/dL Albumin/Globulin Ratio (1.0-2.8) Lipase (23-300) U/L SARS-CoV-2 (PCR) Negative (Negative) Imaging Data Chest x-ray: Radiologist's Impression: Close Knee X-Ray 11/23/21 Chest X-Ray (Signed) Walter Malcolm - 11/23/21 Ankle X-Ray (Signed) Walter Malcolm - 11/23/21 Abdomen/Pelvis MRI (Signed) Terrance Malcolm - 11/13/[address] (Signed) JeradElisa salmonah - 11/06/21 Brain MRI (Signed) Jayjay Belle - 11/06/21 Abdomen Ultrasound (Signed) Jose Alfredo Grimm - 11/06/[address] (Signed) Geoff Almaguer - 09/11/21 Chest X-Ray (Signed) Shahid Gutierrez - 08/05/[address] (Signed) Jose Alfredo Grimm - 07/09/21 PET, Tumor Imaging Skull-Mid Thigh (Signed) Rita Castillo - 04/23/21 Thoracic Spine X-Ray (Signed) Jayjay Belle - 03/25/[address] (Signed) Jayjay Belle - 03/25/21 Abdomen/Pelvis CT (Signed) Mateo Golden - 12/06/20 Abdomen X-Ray (Signed) Call,Jaiden - 12/06/20 Outside DI 10/10/20 PET, Tumor Imaging Skull-Mid Thigh (Signed) Call,Jaiden - 10/02/20 Brain MRI (Signed) Jayjay Belle - 09/27/[address] (Signed) Rita Castillo - 09/19/20 Telemetry Strips 05/15/[address] (Signed) Rita Castillo - 03/26/[address] (Signed) Haroldo Barton - 12/07/19 Telemetry Strips 09/17/19 Chest X-Ray (Signed) Geoff Almaguer - 09/17/19 PET, Tumor Imaging Skull-Mid Thigh (Signed) Daniel Mendoza - 08/30/[address] (Signed) Haroldo Barton - 08/08/19 Brain MRI (Signed) Cornell Molina - 07/20/19 PFT Result 05/12/19 PET, Tumor Imaging Skull-Mid Thigh (Signed) Adam Champion - 04/19/19 Abdomen/Pelvis CT (Signed) BrendaShahid - 04/18/19 DI Result CC 04/10/19 Outside DI 03/31/[address] (Signed) Rita Castillo - 03/23/19 Outside DI 03/03/19 DI Result CC 03/02/19 EKG Rpt. 01/20/19 Chest X-Ray (Signed) AnnaJose beckfordflory - 01/20/19 Abdomen/Pelvis CT (Signed) Jaiden Muhammad - 01/17/19 Chest X-Ray (Signed) Haroldo Barton - 01/17/19 Carotid Doppler Study (Signed) Shruti Sotomayor - 11/16/18 Brain MRI (Signed) Jayjay Belle - 11/16/18 Mammogram Screening (Signed) Wang Suarez - 11/16/18 PET, Tumor Imaging Skull-Mid Thigh (Signed) AnnaJoseflory - 07/20/18 Cervical Spine MRI (Signed) AnnaJose beckfordflory - 05/19/18 Chest X-Ray (Signed) Adam Champion - 03/21/[address] (Signed) Haroldo Barton - 01/10/[address] (Signed) Jayjay Belle - 12/06/[address] (Signed) Cornell Molina - 11/06/17 Modified Barium Swallow (Signed) Andrea Sullivan - 11/03/17 Echocardiogram Ultrasound (Signed) Adelaida Gibson - 11/01/17 Telemetry Strips 11/01/17 Chest X-Ray (Signed) Cesia Arias - 11/01/17 Telemetry Strips 10/29/[address] (Signed) Haroldo Barton - 10/29/17 Chest X-Ray (Signed) Fernandez Geronimo - 10/29/17 Brain MRI (Signed) Wang Suarez - 10/29/[address] [id number] XRay Report Signed Patient: Fabien Xiong MR#: [id number] : 1940 Acct:[id number] Age/Sex: 81 / F Date of Service: 11/23/21 Loc: ED Accession Number: [id number] ?? Procedure: XR chest 1V Ordering Provider: Joi Mitchell D.O. PROCEDURE:? XR CHEST 1V ? INDICATIONS:? chest pain ? TECHNIQUE:? One view of the chest was acquired.? ? COMPARISON:? [facility], XR CHEST 1V, 08/05/2021, 14:14. ? FINDINGS:? ? Surgical changes and devices:? Right chest port with tip in the superior vena cava.? Prior sternotomy. ? Lungs and pleura:? Flattening of diaphragms with prominent central markings.? No pleural effusion.? No pneumothorax. ? Mediastinum:? Mediastinal contours appear normal.? Heart size is normal.? ? Bones and chest wall:? No suspicious bony lesions.? Stable osseous changes of left ribs. ? IMPRESSION:? 1. 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 2. No acute cardiopulmonary findings. ? ? Dictated by: Walter Malcolm M.D. on 11/23/2021 at 9:58 ? ? Approved by: Walter Malcolm M.D. on 11/23/2021 at 10:00?? Extremity x-ray #1: Radiologist's Impression: [place] [id number] XRay Report Signed Patient: Fabien Xiong MR#: [id number] : 1940 Acct:[id number] Age/Sex: 81 / F Date of Service: 11/23/21 Loc: ED Accession Number: [id number] ?? Procedure: XR ankle RT min 3V Ordering Provider: Joi Mitchell D.O. PROCEDURE:? XR ANKLE RT MIN 3V ? INDICATIONS:? fall, ankle pain and swelling ? TECHNIQUE:? 3 views of the ankle were acquired.? ? COMPARISON:? [facility], ANKLE 3 VIEWS RIGHT, 10/30/2015, 13:41. ? FINDINGS:? Distal fibular fracture with mild lateral displacement of fracture fragment.? Medial malleolar fracture.? Possible posterior malleolar fracture not well appreciated.? There is widening of the ankle mortise.? Prominent soft tissue edema. .? ? ? IMPRESSION:? Medial and lateral malleolar fractures with suspected posterior malleolar fracture. ? Dictated by: Walter Malcolm M.D. on 11/23/2021 at 9:53 ? ? Approved by: Walter Malcolm M.D. on 11/23/2021 at 9:58 ECG Data Attestation: I personally reviewed and interpreted this ECG as follows: Prior ECG tracings: available for review Interpretation: Sinus rhythm rate 81 GA 178 QRS 84 QTC 441. No acute ST changes appreciated. Q-wave in V1 V2. Patient has prior from 11/23/2021 which appears similar with no acute change. No ST elevation depression noted. MDM Narrative Medical decision making narrative: This a 81-year-old female with syncope versus fall and loss of consciousness. Patient does typically have some issues with ambulation and unsteady gait, she got up quite quickly today to let her dog out. She felt little lightheaded just before no severe headaches, pre or post, denies chest pain or new shortness of breath. She has baseline emphysema and does use home O2 as needed, she is running 87-89%. Discussed would like to rule out pulmonary emboli, patient has had reaction to contrast even with pre medication unclear what the exact reac tion was is described as anaphylaxis, no CPR intubation but patient woke up with a lot of people around her. Patient's labs otherwise show anemia not significantly changed from baseline is 9.9 was 10.5 so within 1 g of lab air, no acute changes to CBC otherwise normal platelets, PT INR PTT negative, BNP shows no acute change glucose is 92, troponin is negative, no acute EKG changes and patient has prior from November that appears similar. Imaging including chest x-ray shows changes consistent with chronic lung disease, patient has a by mouth possibly trimalleolar fracture on ankle x-ray, knee x-ray shows moderate effusion, no fracture with no acute changes. Patient was splinted and is ne urovascularly intact pre and post here in the department, head CT was obtained negative. Spoke with Dr. Verdugo from Orthopedic surgery she would like to bring the patient in for surgical repair. Asked for medicine to admit for medical management with significant medical issues. Patient would likely benefit from observation is unclear if this was ground level fall versus syncope. Spoke with hospitalist, Dr. Ratliff who accepts. Dr. Verdugo plans for repair tomorrow. Discharge Plan Departure Patient Disposition: Admitted as Observation Clinical Impression: Syncope, Lung cancer, Ankle fracture, right Admit Date/Time: 11/23/21 13:33 Admit Provider: Ata Ratliff
--- NOTE | 2021-11-23 11:39 | DI.RAD.S_ITS ---
PROCEDURE: XR KNEE RT 3V INDICATIONS: right knee pain TECHNIQUE: 3 views of the knee were acquired. COMPARISON: [facility], , TIB/FIB 2V RIGHT, 10/30/2015, 13:41. [facility], , TIB/FIB 2V LEFT, 10/30/2015, 13:41. [facility], NM, NM PET CT FUSION SKULL 2 THIGH, 04/23/2021, 11:05. [facility], , XR ANKLE RT MIN 3V, 11/23/2021, 10:20. [facility], , KNEE 3V LEFT, 10/30/2015, 13:41. FINDINGS: No fracture or osseous malalignment. There is tricompartmental osteoarthrosis most prominent in the medial and patellofemoral compartments with joint space narrowing, subchondral sclerosis, and marginal osteophytes. There is a moderate knee effusion. There are vascular calcifications. Nonaggressive appearing sclerotic proximal tibial lesion similar to comparison in 2016. IMPRESSION: 1. No acute osseous finding. 2. Tricompartmental osteoarthrosis. 3. Moderate effusion. 1. Dictated by: Walter Malcolm M.D. on 11/23/2021 at 11:13 Approved by: Walter Malcolm M.D. on 11/23/2021 at 11:20
[2021-11-23] MEDS: OXYCODONE/ACETAMINOPHEN 5/325 TABLET 2 TAB PO (11:47)
--- NOTE | 2021-11-23 12:35 | DI.CT.S_ITS ---
PROCEDURE: CT HEAD/BRAIN WO CON INDICATIONS: syncope, vs LOC w/ fall TECHNIQUE: Noncontrast 4.5 mm thick angled axial sections acquired from the foramen magnum to the vertex, with coronal and sagittal reformats. For radiation dose reduction, the following was used: automated exposure control, adjustment of mA and/or kV according to patient size. COMPARISON: [facility], MR, MR HEAD/BRAIN WO/W CON, 09/27/2020, 15:48. [facility], CT, CT HEAD/BRAIN WO CON, 10/29/2017, 11:48. FINDINGS: Image quality: Excellent. CSF spaces: Basal cisterns are patent. No extra-axial fluid collections. Ventricles are normal in size and shape. Brain: No midline shift. No intracranial masses or hemorrhage. Chu-white matter interface is normal. Skull and face: Calvarium and visualized facial bones are intact, without suspicious lesions. Postsurgical changes of the orbits. Sinuses: Visualized sinuses and mastoids are clear. IMPRESSION: No intracranial hemorrhage or fracture identified. Dictated by: Walter Malcolm M.D. on 11/23/2021 at 12:05 Approved by: Walter Malcolm M.D. on 11/23/2021 at 12:09
[2021-11-23] MEDS: OXYCODONE IR 5 MG TABLET PO ×3 (14:43→23:30)
[2021-11-23] MEDS: HYDROMORPHONE 1 MG INJ IV (15:44)
--- NOTE | 2021-11-23 16:49 | P.CONS_ITS ---
History of Present Illness Consult details Date Patient Seen: 11/23/21 Time Patient Seen: 18:49 Chief complaint: GLF, weakness Reason for consult: r ankle fracture Requesting provider: Joi Mitchell Narrative: This is a 81-year-old female with history of right lung squamous cell carcinoma with prior surgery currently on immunotherapy, severe iron deficiency anemia, non-Hodgkin's lymphoma, aortic stenosis with bovine valve replacement in 2010, chronic pain, hypothyroidism, dyslipidemia with complaint of possible syncopal episode patient states that she got a bed quickly, felt unsteady on her feet which is normal for her she has chronic neuropathy .her main complaint is her right ankle.? Supposed to use a walker but was not using it during this episode. Found to have a closed Trimalleolar ankle fracture on the right. Typically runs low 90s she does have home O2 which she uses intermittently.? She is on a spirin daily, no known prior pulmonary emboli, she is actively immune therapy for her lung cancer. Indicated for admission and operative treatment of her unstable right ankle fracture. Admission to internal medicine for her complex comorbidities. Seen up in her room eating dinner. Granddaughter is helping her. Complains of pain in right ankle denies other pain although granddaughter reports that an x- ray of her left lower extremity was just taken. Patient does not endorse any current pain of that side. Endorses neuropathy bilateral lower extremities of to about the ankle level. Meds Home Medications and Allergies Home Medications Medication Instructions Recorded Confirmed Type multivitamin (Multiple Vitamins 1 tab PO DAILY ##0 01/01/17 11/23/21 History tablet) melatonin 10 mg tablet 10 mg PO BEDTIME 10/29/17 11/23/21 History polyethylene glycol 3350 17 17 gm PO DAILY 10/29/17 11/23/21 History gram/dose oral powder vit C 250 mg-vit E 90 mg-zinc 40 1 tab PO BID ##0 10/29/17 11/23/21 History mg-copper 1 [id number] capsule (PreserVision AREDS-2) Disabled Parking Placard #1 ea 05/04/18 11/23/21 Rx cyclosporine 0.05 % eye drops in a 1 drop EYE-BOTH BID 05/04/18 11/23/21 History dropperette (Restasis) aspirin 81 mg tablet,delayed 81 mg PO DAILY 01/20/19 11/23/21 History release cholecalciferol (vitamin D3) 50 2,000 unit PO DAILY 01/20/19 11/23/21 History mcg (2,000 unit) capsule (Vitamin D3) vitamin B complex 1 cap PO DAILY 04/16/20 11/23/21 History sodium,potassium,mag sulfates 17.5 177 ml PO DAILY 2 doses #354 mL 04/18/20 11/23/21 Rx gram-3.13 gram-1.6 gram oral soln rosuvastatin 20 mg tablet See Rx Instructions .Route 04/10/21 11/23/21 Rx .COMPLEX #90 tabs acetaminophen 325 mg capsule 650 mg PO QID PRN pain #60 caps 08/05/21 11/23/21 Rx (Tylenol) mirtazapine 15 mg tablet 15 mg PO BEDTIME #90 tabs 10/08/21 11/23/21 Rx gabapentin 400 mg capsule 400 mg PO BID #180 caps 10/28/21 11/23/21 Rx levothyroxine 50 mcg tablet 50 mcg PO DAILY #90 tabs 10/28/21 11/23/21 Rx omeprazole 40 mg capsule,delayed 40 mg PO BID #180 caps 10/28/21 11/23/21 Rx release amitriptyline 50 mg tablet 50 mg PO BEDTIME #90 tabs 11/05/21 11/23/21 Rx gabapentin 800 mg tablet 800 mg PO BEDTIME #90 tabs 11/19/21 11/23/21 Rx magnesium citrate 150 ml PO DAILY PRN constipation 11/19/21 11/23/21 Rx #296 mL Allergies Allergy/AdvReac Type Severity Reaction Status Date / Time Iodinated Contrast Media Allergy Severe ANAPHYLAXIS Verified 11/19/21 11:34 [IODINATED CONTRAST MEDIA - IV DYE] ampicillin [AMPICILLIN] AdvReac Severe BLOODY Verified 11/19/21 11:34 DIARRHEA oxycodone [OXYCODONE] AdvReac Intermediate MAKES ME Verified 11/19/21 11:34 MEAN, CHANGE OF PERSONALITY adhesive [ADHESIVE] AdvReac Mild REDNESS Verified 11/19/21 11:34 Exam Vital Signs (past 8 hours): - 11/23/21 10:06 11/23/21 09:58 11/23/21 09:58 Temperature 98.4 F Pulse Rate 82 84 Respiratory Rate 20 Blood Pressure 128/70 128/70 Pulse Oximetry 87 L 87 L Oxygen Delivery Method Room Air Oxygen Flow Rate 11/23/21 10:00 11/23/21 10:30 11/23/21 11:00 Temperature Pulse Rate 83 85 84 Respiratory Rate 22 19 Blood Pressure Pulse Oximetry 85 L 92 91 Oxygen Delivery Method Oxygen Flow Rate 11/23/21 11:30 11/23/21 12:00 11/23/21 12:30 Temperature Pulse Rate 87 85 87 Respiratory Rate 21 22 25 H Blood Pressure Pulse Oximetry 98 90 L Oxygen Delivery Method Oxygen Flow Rate 11/23/21 13:00 11/23/21 13:30 11/23/21 15:02 Temperature Pulse Rate 91 H 92 H Respiratory Rate 18 21 Blood Pressure Pulse Oximetry 100 99 89 L Oxygen Delivery Method Simple Mask Oxygen Flow Rate 6 11/23/21 13:55 11/23/21 15:11 Temperature 98.8 F Pulse Rate 101 H Respiratory Rate 17 Blood Pressure 117/54 L Pulse Oximetry 89 L Oxygen Delivery Method Oxygen Flow Rate 6 Oxygen Delivery Method Simple Mask Oxygen Flow Rate 6 Narrative Exam Narrative: Afebrile. Frail appearing. On simple mask oxygen 4-6 L off currently for eating. Alert oriented no acute distress. Using utensils. Granddaughter helping her feet herself. Sitting up in bed HEENT exam is normocephalic atraumatic Respiratory exam pulse ox high 80s CV exam regular rate and rhythm Musculoskeletal exam: Using bilateral upper extremities no tenderness to palpation swelling or bruising Left lower extremity no tenderness to palpation. No swelling. No bruising. Calf is soft. Endorses neuropathy to the ankle level. Palpable dorsalis pedis pulse brisk capillary refill Right lower extremity in short leg splint. Brisk capillary refill to the toes. Endorses neuropathy to ankle level. No pain with palpation around the knee. Objective Imaging X-ray right ankle: My impression: Displaced trimalleolar ankle fracture, small posterior malleolus fracture. The re is lateral talar shift and displaced medial and lateral malleolus fractures. Lateral malleolus fracture at the level of the syndesmosis moderate soft tissue swelling. Osteopenia Radiologist's impression: IMPRESSION: Medial and lateral malleolar fractures with suspected posterior malleolar fracture. Dictated by: Walter Malcolm M.D. on 11/23/2021 at 9:53 Labs Result Diagrams: 11/23/21 10:00 11/23/21 10:00 Labs: Laboratory Results - last 24 hr 11/23/21 11/23/21 11/23/21 10:00 10:00 10:00 WBC 6.1 RBC 3.64 L Hgb 9.9 L Hct 30.0 L MCV 82.5 MCH 27.2 MCHC 33.0 RDW 15.5 H Plt Count 181 Neut % (Auto) 58.7 Lymph % (Auto) 25.5 [place] % (Auto) 9.1 Eos % (Auto) 5.9 H Baso % (Auto) 0.8 Neut # (Auto) 3500 Lymph # (Auto) 1500 [place] # (Auto) 600 Eos # (Auto) 400 Baso # (Auto) 100 PT 12.0 INR 1.0 APTT 33 Sodium 133 L Potassium 4.1 Chloride 99 Carbon Dioxide 33 H BUN 16 Creatinine 0.53 Estimated GFR > 60 BUN/Creatinine Ratio 30.2 H Glucose 92 Calcium 8.7 Magnesium 2.2 Total Bilirubin 0.3 AST 22 ALT 13 Alkaline Phosphatase 79 Total Creatine Kinase 30 CK-MB (CK-2) TNP CK-MB (CK-2) Rel Index TNP Troponin I < 0.012 Total Protein 6.1 L Albumin 3.5 Globulin 2.6 Albumin/Globulin Ratio 1.3 Lipase 122 SARS-CoV-2 (PCR) 11/23/21 10:00 WBC RBC Hgb Hct MCV MCH MCHC RDW Plt Count Neut % (Auto) Lymph % (Auto) [place] % (Auto) Eos % (Auto) Baso % (Auto) Neut # (Auto) Lymph # (Auto) [place] # (Auto) Eos # (Auto) Baso # (Auto) PT INR APTT Sodium Potassium Chloride Carbon Dioxide BUN Creatinine Estimated GFR BUN/Creatinine Ratio Glucose Calcium Magnesium Total Bilirubin AST ALT Alkaline Phosphatase Total Creatine Kinase CK-MB (CK-2) CK-MB (CK-2) Rel Index Troponin I Total Protein Albumin Globulin Albumin/Globulin Ratio Lipase SARS-CoV-2 (PCR) Negative REPLACED BY [facility] Medical History Acute CVA (cerebrovascular accident) (2017) Anaphylactic reaction (07/31/08) Aortic stenosis Arthritis Chest pain Chronic obstructive pulmonary disease Constipation Coronary artery disease Current smoker (05/17/12) Depression Dermatitis Difficulty swallowing Diverticulosis 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) GERD (gastroesophageal reflux disease) Heart murmur History of aortic valve replacement with bioprosthetic valve (10/23/10) Hyperlipidemia Hypertension Hypothyroidism Macular degeneration Malignant neoplasm of lung Mitral valve disorder Neuropathy Nocturnal hypoxia Non Hodgkin's lymphoma Osteoarthritis (07/23/10) Osteoporosis (~2015) Peripheral neuropathy Pulmonary embolism Raynaud's disease (05/17/12) 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) Surgical History H/O total hysterectomy History of appendectomy History of cataract removal with insertion of prosthetic lens (2008) History of cholecystectomy History of lumpectomy of left breast History of lung surgery (1994) History of removal of Port-a-Cath (07/04/17) History of surgery Hx of aortic valve replacement (06/22/13) Hx of fusion of cervical spine (~03/2004) Hx of fusion of cervical spine (02/2006) Hx of hysterectomy (~04/1987) Status post cholecystectomy (08/22/09) Family History Mother Cancer Colon cancer Heart disease Father Lung cancer Brother Lung cancer Sister CVA (cerebral vascular accident) Heart disease Daughter Myocardial infarction Social History marital status: unknown household members: none Tobacco & Substance Use Smoking Status: Former smoker Tobacco: How many years used: 50 second hand exposure: Yes alcohol intake: current substance use type: does not use Assessment & Plan Assessment and plan (1) Ankle fracture, right: Status: Acute Plan Patient is a 81-year-old female with an unstable right ankle and neuropathy. She has a complex medical comorbidities including lung cancer active treatment chronic intermittent oxygen requirement and history of aortic valve replacement. Recommend surgical fixation of her ankle fracture in order to allow immediate weight-bearing as tolerated in a boot after surgery. Discussed there are risks for infection , risk with complications with neuropathy and risks of surgery, nonunion, malunion, pneumonia, further blood loss anemia, myocardial infarction, stroke, paralysis, . With the patient's medical comorbidities would be ideal if could avoid general anesthetic. Patient may be candidate for spinal or spinal and regional block. Appreciate risk stratification from Internal Medicine. Non operative treatment not ideal for this displaced unstable fracture in ambulatory patient The risks and benefits of the procedure have been discussed with the patient given the opportunity to ask questions. The risks of surgery include but are not limited to infection, malunion, nonunion, persistence of pain, damage to nerves and blood vessels, posttraumatic arthritis, DVT, PE, cardiopulmonary complications and . The patient expressed a thorough understanding of the risks and benefits of surgery and has elected to proceed. Consent was signed. Assessment & Plan narrative: right unstable pattern ankle fracture in patient with neuropathy, closed fracture. reccommend surgery for stabilization. plan for OR 9/5 AM as pt not npo and presentation and will benefit from medical optimization. On the medical optimization prior to surgery. COVID-19 COVID-19 status: Negative Result date/Date tested (Pos, Neg/Pending): 11/23/21 Time Spent With Patient Time with patient: 30 to 49 minutes with 50% spent counseling/coordinating care Critical Care time: I spent a total of [] minutes of critical care time on this patient's care t marylu; this time is exclusive of procedural time.
--- NOTE | 2021-11-23 17:32 | P.HP_ITS ---
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 Patient states that for quite some time now she gets dizzy with sudden positional changes, more often in the mornings. She is supposed to use a walker, but wasn't this morning when she needed to let her dog out around 6am. She opened the door and became light headed and felt like she was going to pass out but she did not but did fall onto her knees. She did not lose consciousness, she had immediate pain and had a life-alert which she used. She denies any recent shortness of breath worse than usual, diarrhea, chest pain, palpitations. She has chronic dyspnea on exertion, able to only climb a few steps at a time, and can maybe walk 50 ft before stopping. She denies LE edema, orthopnea, worsened cough than usual, fever, chils, abdominal pain, nausea, vomiting, dysuria, or urinary frequency. In the emergency room, patient was mildly hypoxic started on oxygen. She seems to be requiring more her usual 3 L, and was 89% on 6 L. She was found to have an unstable R ankle fracture with medial and lateral malleolar fractures with possible posterior fracture as well. Shortly after arrival to the hospital floor, she had a 30 second episode of a supraventricular tachycardia, unclear type on telemetry. She denied chest pain or palpitations, did feel slightly dizzy with the arrythmia though. Vitals were otherwise unremarkable. She was admitted to medicine with orthopedic surgery consultation, patient planned for operative fixation tomorrow if medically stable. 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) GERD (gastroesophageal reflux disease) Heart murmur History of aortic valve replacement with bioprosthetic valve (10/23/10) Hyperlipidemia Hypertension Hypothyroidism Macular degeneration Malignant neoplasm of lung Mitral valve disorder Neuropathy Nocturnal hypoxia Non Hodgkin's lymphoma Osteoarthritis (07/23/10) Osteoporosis (~2015) Peripheral neuropathy Pulmonary embolism Raynaud's disease (05/17/12) 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) Surgical History H/O total hysterectomy History of appendectomy History of cataract removal with insertion of prosthetic lens (2008) History of cholecystectomy History of lumpectomy of left breast History of lung surgery (1994) History of removal of Port-a-Cath (07/04/17) History of surgery Hx of aortic valve replacement (06/22/13) Hx of fusion of cervical spine (~03/2004) Hx of fusion of cervical spine (02/2006) Hx of hysterectomy (~04/1987) Status post cholecystectomy (08/22/09) Family & Social History Family History Mother Cancer Colon cancer Heart disease Father Lung cancer Brother Lung cancer Sister CVA (cerebral vascular accident) Heart disease Daughter Myocardial infarction Social History: household members none Prior Living Arrangements House Safety & Behavioral: Feels Safe in Current Yes Environment Been Physically Hurt or No Threatened By a Person Tobacco & Substance use: Tobacco type cigarettes Smoking Status Former smoker Smoking packs per day 2.5 alcohol intake current alcohol intake frequency 0-2 drinks per day Substance Use Type does not use Meds Home Medications and Allergies Home Medications Medication Instructions Recorded Confirmed Type multivitamin (Multiple Vitamins 1 tab PO DAILY ##0 01/01/17 11/23/21 History tablet) melatonin 10 mg tablet 10 mg PO BEDTIME 10/29/17 11/23/21 History polyethylene glycol 3350 17 17 gm PO DAILY 10/29/17 11/23/21 History gram/dose oral powder vit C 250 mg-vit E 90 mg-zinc 40 1 tab PO BID ##0 10/29/17 11/23/21 History mg-copper 1 [id number] capsule (PreserVision AREDS-2) Disabled Parking Placard #1 ea 05/04/18 11/23/21 Rx cyclosporine 0.05 % eye drops in a 1 drop EYE-BOTH BID 05/04/18 11/23/21 History dropperette (Restasis) aspirin 81 mg tablet,delayed 81 mg PO DAILY 01/20/19 11/23/21 History release cholecalciferol (vitamin D3) 50 2,000 unit PO DAILY 01/20/19 11/23/21 History mcg (2,000 unit) capsule (Vitamin D3) vitamin B complex 1 cap PO DAILY 04/16/20 11/23/21 History sodium,potassium,mag sulfates 17.5 177 ml PO DAILY 2 doses #354 mL 04/18/20 11/23/21 Rx gram-3.13 gram-1.6 gram oral soln rosuvastatin 20 mg tablet See Rx Instructions .Route 04/10/21 11/23/21 Rx .COMPLEX #90 tabs acetaminophen 325 mg capsule 650 mg PO QID PRN pain #60 caps 08/05/21 11/23/21 Rx (Tylenol) mirtazapine 15 mg tablet 15 mg PO BEDTIME #90 tabs 10/08/21 11/23/21 Rx gabapentin 400 mg capsule 400 mg PO BID #180 caps 10/28/21 11/23/21 Rx levothyroxine 50 mcg tablet 50 mcg PO DAILY #90 tabs 10/28/21 11/23/21 Rx omeprazole 40 mg capsule,delayed 40 mg PO BID #180 caps 10/28/21 11/23/21 Rx release amitriptyline 50 mg tablet 50 mg PO BEDTIME #90 tabs 11/05/21 11/23/21 Rx gabapentin 800 mg tablet 800 mg PO BEDTIME #90 tabs 11/19/21 11/23/21 Rx magnesium citrate 150 ml PO DAILY PRN constipation 11/19/21 11/23/21 Rx #296 mL Allergies Allergy/AdvReac Type Severity Reaction Status Date / Time Iodinated Contrast Media Allergy Severe ANAPHYLAXIS Verified 11/19/21 11:34 [IODINATED CONTRAST MEDIA - IV DYE] ampicillin [AMPICILLIN] AdvReac Severe BLOODY Verified 11/19/21 11:34 DIARRHEA oxycodone [OXYCODONE] AdvReac Intermediate MAKES ME Verified 11/19/21 11:34 MEAN, CHANGE OF PERSONALITY adhesive [ADHESIVE] AdvReac Mild REDNESS Verified 11/19/21 11:34 Review of Systems Review of Systems Narrative: All other systems reviewed with the patient and are negative unless otherwise stated. Exam Vital Signs (past 8 hours): - 11/23/21 10:06 11/23/21 09:58 11/23/21 09:58 Temperature 98.4 F Pulse Rate 82 84 Respiratory Rate 20 Blood Pressure 128/70 128/70 Pulse Oximetry 87 L 87 L Oxygen Delivery Method Room Air Oxygen Flow Rate 11/23/21 10:00 11/23/21 10:30 11/23/21 11:00 Temperature Pulse Rate 83 85 84 Respiratory Rate 22 19 Blood Pressure Pulse Oximetry 85 L 92 91 Oxygen Delivery Method Oxygen Flow Rate 11/23/21 11:30 11/23/21 12:00 11/23/21 12:30 Temperature Pulse Rate 87 85 87 Respiratory Rate 21 22 25 H Blood Pressure Pulse Oximetry 98 90 L Oxygen Delivery Method Oxygen Flow Rate 11/23/21 13:00 11/23/21 13:30 11/23/21 15:02 Temperature Pulse Rate 91 H 92 H Respiratory Rate 18 21 Blood Pressure Pulse Oximetry 100 99 89 L Oxygen Delivery Method Simple Mask Oxygen Flow Rate 6 11/23/21 13:55 11/23/21 15:11 Temperature 98.8 F Pulse Rate 101 H Respiratory Rate 17 Blood Pressure 117/54 L Pulse Oximetry 89 L Oxygen Delivery Method Oxygen Flow Rate 6 Oxygen Delivery Method Simple Mask Oxygen Flow Rate 6 Narrative Exam Narrative: General:?elderly female, somewhat frail, no acute distress. but on a venti-mask HEENT:? Normocephalic, atraumatic, extraocular muscles intact, oral pharynx is clear and mucous membranes are moist. Neck: supple and symmetric, trachea is midline, no cervical adenopathy. Negative for JVD Chest:? Normal AP diameter and contour without kyphoscoliosis, no tachypnea, equal chest rise bilaterally. Lungs:? bibasilar rhonchi, no wheezing. Cardio:?tachycardia, regular rhythm, no m/r/g. Abdomen: S NT ND. Musculoskeletal:?R ankle bandaged, no other joint tenderness but does endores L tib/fib tenderness on exam. Extremities: No edema or joint effusions. No cyanosis or clubbing. Skin:? Pale,? Warm to touch,dry and intact without rashes, ulcerations or petechiae.? Neuro:? Alert and orientated x3,? sensation diminshed bilateral feet, no gross deficits noted of cranial nerves. Psych:? Patient has a well-kept appearance, appropriate affect, mental status attitude thought context and judgment are appropriate for age. Objective ECG Impression: NSR without evidence of ischemia as interpreted by me. Labs Result Diagrams: 11/23/21 10:00 11/23/21 10:00 Labs: Laboratory Results - last 24 hr 11/23/21 11/23/21 11/23/21 10:00 10:00 10:00 WBC 6.1 RBC 3.64 L Hgb 9.9 L Hct 30.0 L MCV 82.5 MCH 27.2 MCHC 33.0 RDW 15.5 H Plt Count 181 Neut % (Auto) 58.7 Lymph % (Auto) 25.5 Bourbon % (Auto) 9.1 Eos % (Auto) 5.9 H Baso % (Auto) 0.8 Neut # (Auto) 3500 Lymph # (Auto) 1500 [place]bon # (Auto) 600 Eos # (Auto) 400 Baso # (Auto) 100 PT 12.0 INR 1.0 APTT 33 Sodium 133 L Potassium 4.1 Chloride 99 Carbon Dioxide 33 H BUN 16 Creatinine 0.53 Estimated GFR > 60 BUN/Creatinine Ratio 30.2 H Glucose 92 Calcium 8.7 Magnesium 2.2 Total Bilirubin 0.3 AST 22 ALT 13 Alkaline Phosphatase 79 Total Creatine Kinase 30 CK-MB (CK-2) TNP CK-MB (CK-2) Rel Index TNP Troponin I < 0.012 Total Protein 6.1 L Albumin 3.5 Globulin 2.6 Albumin/Globulin Ratio 1.3 Lipase 122 SARS-CoV-2 (PCR) 11/23/21 10:00 WBC RBC Hgb Hct MCV MCH MCHC RDW Plt Count Neut % (Auto) Lymph % (Auto) Bourbon % (Auto) Eos % (Auto) Baso % (Auto) Neut # (Auto) Lymph # (Auto) Bourbon # (Auto) Eos # (Auto) Baso # (Auto) PT INR APTT Sodium Potassium Chloride Carbon Dioxide BUN Creatinine Estimated GFR BUN/Creatinine Ratio Glucose Calcium Magnesium Total Bilirubin AST ALT Alkaline Phosphatase Total Creatine Kinase CK-MB (CK-2) CK-MB (CK-2) Rel Index Troponin I Total Protein Albumin Globulin Albumin/Globulin Ratio Lipase SARS-CoV-2 (PCR) Negative Assessment & Plan Assessment & Plan narrative: 1. R ankle fractures, acute, present on admission, pathologic secondary to osteoporosis - orthopedic surgery consulted, appreciate assistance with intervention, Dr. Benny torres following - patient has a number of underlying chronic and possibly acute medical co-morbidities. She has poor waveform on pulse oximetry and oxygenation has been difficult to monitor thus far. She is medically a high risk patient. This was discussed with her. - consider spinal anesthesia to reduce risks from anesthesia given severity of her COPD and aortic valve disease (aortic disease not entirely known at this time) - TTE ordered to further assess vavluar disease. 2. acute on chronic hypoxemic respiratory failure - r/o ACS with 8 hour troponin - suspect secondary to COPD exacerbation, will start steroid treatments. - does not appear cardiac related, though records available for review now are from 2 years ago. - have ordered TTE as noted above. - normally patient on 3L intermittently at home, she has significantly more requirements here thus far. - XR chest without infiltrates. - if worsening O2 (improved slightly at the time of this note and patient is on 5L O2), obtain CTA chest if patient will allow given her contrast allergy. She can be pre-treated. Consider heparin infusion prior to surgery. She also has a history of GI bleeding on AC. 3. COPD / emphysema with probable exacerbation - continue steroids as noted above. - albuterol prn with duoneb. 4. history of AVR with elevated gradients, history of CAD, history of CVA - per prior cardiology notes (most recent I have is from 2 years ago) they considered stress testing and apparently have recommended valve replacement again which the patient did not wish to persue. Last EF was 70% that I have records for (2 years ago) - will check echo here, unclear if current respiratory failure is cardiac related at this time - r/o ACS with 8 hour troponin - continue ASA, statin - 30 seconds approx. of a supraventricular tachycardia noted on telemetry, rate 160s, appeared regular, unable to capture on formal EKG. 5. R lung squamous cell carcinoma, non-hodkins lymphoma - s/p chemo and radiation, was apparently not a surgical candidate for resection per outpatient notes due to lung disease. 6. chronic iron deficiency anemia - appears stable 7. history of CVA - continue home asa, statin changed to formulary alternative. 8. history of GI bleeding - continue home PPI BID 9. ground level fall - also complains of L tib/fib pain will check another XR to rule out another fracture. - she has chronic dizziness when standing, documented with cardiology as long as a few years ago, symptoms are not uncommon for her. 10 Advanced care planning - I spent a total of 20 minutes reviewing patient's goals of care given her complex medical problems and severity of lung and valvular disease. She would want to be resuscitated if she could recover, but does not wish to be kept alive with the help of machines. Surrogate decision maker as noted below. - Patient would be agreeable to short term SNF prior to returning home. She does not want to live in a skilled nursing. She would be agreeable to caretakers or nurses coming to help her at home. Code: Full as discussed with the patient, surrogate is her daughter. DVT: hold prior to possible surgery Dispo: Admit as inpatient given patient's current medical issues and complexity and need for surgical stabilization of her R ankle. I have utilized all available immediate resources to obtain, update, or review the patient's current medications. COVID-19 COVID-19 status: Negative Time Spent With Patient Critical Care time: I spent a total of [] minutes of critical care time on this patient's care today; this time is exclusive of procedural time. Quality VTE Deep Vein Thrombosis/Pulmonary Embolism Present on Admission: No
--- NOTE | 2021-11-23 17:38 | DI.RAD.S_ITS ---
PROCEDURE: XR TIBIA FIBULA LT 2V INDICATIONS: pain reported after fall TECHNIQUE: 2 views of the tibia and fibula were acquired. COMPARISON: [facility], CR, TIB/FIB 2V RIGHT, 10/30/2015, 13:41. FINDINGS: Bones: No fractures or dislocations. No suspicious bony lesions. Soft tissues: No suspicious soft tissue calcifications or masses. IMPRESSION: Occult Dictated by: Cesia Arias M.D. on 11/23/2021 at 19:02 Approved by: Cesia Arias M.D. on 11/23/2021 at 19:03
--- NOTE | 2021-11-23 17:39 | DI.ECHO.S_ITS ---
[facility]---------+ [facility] +---------+ : : [address] : [place] [address] : : : : [id number] : : : : Phone: [phone]+ Echocardiogram Report + + :Name: ASH HDEZ Study Date: 11/24/2021 Height: 63 in : :[facility] ReadingLocation: Weight: 128 lb : : Gender: Female BSA: 1.6 m2 : :: 1940 Age: 81 yrs BP: 163/53 mmHg: :Reason For Study: Aortic valve replacement - bioprosthetic : :Ordering Physician: JOLIE, : :SAGE CORONEL Performed By: Alejandro Viramontes : :Referring: SAGE DAVE : + + Interpretation Summary Normal sinus rhythm. Borderline concentric left ventricular hypertrophy with ejection fraction 70- 75%. Grade I diastolic dysfunction. Normal chamber sizes. The bioprosthetic aortic valve is well-seated and opens well. There is moderate mitral annular calcification with moderate associated mitral stenosis. Moderate tricuspid regurgitation with estimated PA systolic pressure of 72 mm Hg assuming RA pressure of 3 mm Hg. Compared to prior study 11/02/2017 moderate mitral stenosis is new. Pulmonary artery systolic pressure is up from 54 mmHg to 72 mm Hg. Moderate pulmonary hypertension. Procedure: A two-dimensional transthoracic echocardiogram with color flow and Doppler was performed. The study quality was technically adequate. Comparison is made with the echocardiogram of 11/02/2017. The patient was in normal sinus rhythm during the exam. Left Ventricle: The left ventricle is normal in size. There is borderline concentric left ventricular hypertrophy. The left ventricle is hyperdynamic. The ejection fraction is estimated to be 70-75%. There are no focal wall motion abnormalities. Diastolic function could not be accurately assessed due to confounding valvular disease. Right Ventricle: The right ventricle is normal in size and function. Atria: Both atria are normal in size. The interatrial septum grossly appears intact with no obvious evidence for an atrial septal defect. Mitral Valve: The mitral valve leaflets appear mildly thickened, but open well. There is moderate mitral annular calcification. There is moderate mitral stenosis. Mean gradient is 6 mm Hg. There is trace mitral regurgitation. Aortic Valve: There is a bioprosthetic aortic valve. The prosthetic aortic valve is well-seated. There is probable normal prosthetic aortic valve function. No aortic regurgitation is present. Peak velocity is 3 m/sec with mean gradient of 20 mm Hg. Tricuspid Valve: The tricuspid valve leaflets are thin and pliable. There is severe tricuspid regurgitation. The right ventricular systolic pressure is estimated to be at least 72 mmHg based on an estimated right atrial pressure of 3 mm Hg. Pulmonic Valve: The pulmonic valve is not well seen, but is grossly normal. There is trace pulmonic regurgitation. Great Vessels: The aortic root is not well visualized. The ascending aorta could not be visualized. The IVC is of normal diameter and collapses greater than 50% with a sniff. This suggests a low right atrial pressure of 3 mm Hg. Pericardium/ Pleura There is no pericardial effusion. There is no pleural effusion. MMode/2D Measurements & Calculations LVIDd: 4.0 cm LA A2 area: 15.4 cm2 LVIDs: 2.4 cm LA A4 area: 18.2 cm2 FS: 39.4 % LA length (vol): 4.9 cm IVSd: 1.0 cm LA vol: 49.0 ml LVPWd: 0.83 cm LA vol index: 30.6 ml/m2 LV bradshaw. diameter/BSA (cm/m^2): 2.5 LV sys. diameter/BSA (cm/m^2): 1.5 RA long axis: 4.8 cm TAPSE: 1.7 cm RA area: 12.9 cm2 RA vol: 29.4 ml RA : 18.4 ml/m2 Doppler Measurements & Calculations Ao V2 max: 302.6 cm/sec LVOT Max Kevin: 138.8 cm/sec Ao V2 mean: 212.5 cm/sec LV V1 max P.7 mmHg Ao max P.6 mmHg LV V1 VTI: 27.3 cm Ao mean P.1 mmHg sev ratio: 0.58 Ao V2 VTI: 47.3 cm MV E max kevin: 111.9 cm/sec TR max kevin: 415.3 cm/sec MV A max kevin: 153.1 cm/sec TR max P.0 mmHg MV E/A: 0.73 Med Peak E' Kevin: 6.1 cm/sec E/E' med: 18.2 Lat Peak E' Kevin: 6.3 cm/sec E/E' lat: 17.9 E/e' average: 18.0 MV dec time: 0.33 sec MV V2 mean: 116.0 cm/sec MV mean P.8 mmHg MV V2 VTI: 31.4 cm Electronically signed by: Kika Foreman M.D. on Reading Physician:11/24/2021 01:04 PM
[2021-11-23 18:25] LABS: Troponin I < 0.012 ng/mL (0.01-0.034)
[2021-11-23] MEDS: ACETAMINOPHEN 325 MG TABLET 975 MG PO (18:48)
[2021-11-23] MEDS: predniSONE 20 MG TABLET 40 MG PO (18:50)
[2021-11-23] MEDS: ALBUTEROL/IPRATROPIUM 3 ML AMPUL INH (19:58)
[2021-11-23] MEDS: SODIUM CHLORIDE 0.9% 500 ML 250 ML IV (20:30)
--- NOTE | 2021-11-23 20:34 | PC.NURSE ---
Addendum entered by Yomaira Ha R.N. 11/24/21 06:48: End of shift note. Care of patient from [id number]. Patient responded well to bolus, SBP >100. O2 Sats 92-96% on Venturi mask 9L. Good pain control with Tylenol 975 mg Q8hr, Oxycodone 5mg po given twice and once gave Dilaudid 0.5mg IV for break through pain. Patient complained of pruritus, gave benadryl 25mg IV X2 per patients requested, with good relief. RLE good CMS, elevated all night on two pillows, ice pack applied over ankle, splint intact, swelling decreased. Plan is to have surgery today with Dr. Verdugo. Original Note: Beginning of shift, patient flat affect, able to state her name, BD, age, knows she is at the hospital and states she fell. Denies pain. Found to be Hypotensive, LUE BP 67/30 HR 101, RUE 80/35 (58), HR 98. Leg raise challenge RUE BP 93/37 (59), HR 95. Notified EDDIE English, see new order to give an NS 500ml bolus and to keep the RT LE elevated.
[2021-11-23] MEDS: ATORVASTATIN 20 MG TABLET 40 MG PO (21:53)
[2021-11-23] MEDS: DOCUSATE 100 MG CAPSULE PO (21:53)
[2021-11-23] MEDS: MIRTAZAPINE 15 MG TABLET PO (21:53)
[2021-11-23] MEDS: AMITRIPTYLINE 25 MG TABLET 50 MG PO (21:54)
[2021-11-23] MEDS: GABAPENTIN 400 MG CAPSULE PO (21:54)
[2021-11-23] MEDS: GABAPENTIN 400 MG CAPSULE 800 MG PO (21:54)
[2021-11-23] MEDS: PANTOPRAZOLE DR 40 MG TABLET PO (21:58)
[2021-11-23] MEDS: HYDROMORPHONE 1 MG INJ 0.5 MG IV (21:58)
[2021-11-24] VITALS (11 sets, daily range): BP systolic 98–163; BP diastolic 43–72; PULSE 90–103; RESP 16–22; TEMP 36.7–37.2; O2SAT 91–97; BMI 22.6
[2021-11-24] MEDS: diphenhydrAMINE 50 MG/ML VIAL 25 MG IV ×4 (00:12→20:15)
[2021-11-24] MEDS: HYDROMORPHONE 1 MG INJ 0.5 MG IV (01:01)
[2021-11-24] MEDS: ACETAMINOPHEN 325 MG TABLET 975 MG PO (05:07)
[2021-11-24 05:35] LABS: Add Manual Diff / Slide Review NO; Basophils Absolute Auto 0 /uL (0-100); Basophils Percent Auto 0.3 % (0-2); Eosinophils Absolute Auto 0 /uL (0-450); Eosinophils Percent Auto 0.1 % (2-4); Hematocrit 27.4 % (36-46); Hemoglobin 9.1 g/dL (12.0-16.0); Lymphocytes Absolute Auto 900 /uL (1100-4500); Lymphocytes Percent Auto 11.7 % (25-40); Mean Corpuscular HGB Conc 33.1 % (30-36); Mean Corpuscular Hemoglobin 27.4 PG (26-34); Mean Corpuscular Volume 82.9 fL (80-100); Monocytes Absolute Auto 300 /uL (0-900); Monocytes Percent Auto 4.6 % (3-14); Neutrophils Absolute Auto 6200 /uL (1500-7000); Neutrophils Percent Auto 83.3 % (50-75); Platelet Count 149 X10^3/uL (150-400); Red Blood Cell Count 3.31 X10^6/uL (4.0-5.2); Red Cell Distribution Width 15.5 % (11.6-14.8); White Blood Cell Count 7.5 X10^3/uL (4.5-11.0)
[2021-11-24 05:38] LABS: Alanine Aminotransferase 16 IU/L (<35); Albumin 3.4 g/dL (3.5-5.0); Albumin Globulin Ratio 1.4 (1.0-2.8); Alkaline Phosphatase 76 U/L (38-126); Aspartate Aminotransferase 22 IU/L (14-36); BUN Creatinine Ratio 27.7 (6-22); Bilirubin Total 0.3 mg/dL (0.2-1.3); Blood Urea Nitrogen 13 mg/dL (7-17); Calcium 8.4 mg/dL (8.4-10.2); Carbon Dioxide 33 mmol/L (22-32); Chloride 95 mmol/L (98-107); Estimated Glomerular Filt Rate > 60 mL/min (>60); Globulin 2.5 g/dL (1.7-4.1); Glucose 125 mg/dL (80-110); HEMOLYSIS < 15 (0-50); Sodium 131 mmol/L (137-145); Total Protein 5.9 g/dL (6.3-8.2)
--- NOTE | 2021-11-24 07:57 | P.PN_ITS ---
Subjective Subjective Date Patient Seen: 11/24/21 Time Patient Seen: 07:57 Interval history: Right ankle fracture. Multiple medical comorbidities. Oxygen requirement. Discussion with anesthesia. Postpone surgery today pending echocardiogram. Will put her back on the schedule for tomorrow. If echo is appropriate then will try to avoid general anesthesia with spinal and regional blocks. May eat tonight. NPO at midnight except meds Exam Vital Signs (past 8 hours): - 11/24/21 00:00 11/24/21 00:00 11/24/21 04:00 Temperature 98.7 F 98.3 F Pulse Rate 103 H 99 H Respiratory Rate 22 20 Blood Pressure 124/63 137/63 Pulse Oximetry 92 95 92 Oxygen Delivery Method Venturi Mask Oxygen Flow Rate 9 9 9 11/24/21 04:00 Temperature Pulse Rate Respiratory Rate Blood Pressure Pulse Oximetry 92 Oxygen Delivery Method Venturi Mask Oxygen Flow Rate Fraction of Inspired Oxygen 35 SaO2/FiO2 Ratio 271 Oxygen Delivery Method Venturi Mask Oxygen Flow Rate 9 Narrative Exam Narrative: Unchanged exam. Patient lying in bed face mask oxygen. Answers questions and speaks in complete sentences. Thinks she had some heart studies but not an echo recently. Right lower extremity in splint. Unchanged neuropathy. Brisk capillary refill Objective Labs Result Diagrams: 11/24/21 04:54 11/24/21 04:54 Labs: Laboratory Results - last 24 hr 11/23/21 11/23/21 11/23/21 10:00 10:00 10:00 WBC 6.1 RBC 3.64 L Hgb 9.9 L Hct 30.0 L MCV 82.5 MCH 27.2 MCHC 33.0 RDW 15.5 H Plt Count 181 Neut % (Auto) 58.7 Lymph % (Auto) 25.5 Ada % (Auto) 9.1 Eos % (Auto) 5.9 H Baso % (Auto) 0.8 Neut # (Auto) 3500 Lymph # (Auto) 1500 Ada # (Auto) 600 Eos # (Auto) 400 Baso # (Auto) 100 PT 12.0 INR 1.0 APTT 33 Sodium 133 L Potassium 4.1 Chloride 99 Carbon Dioxide 33 H BUN 16 Creatinine 0.53 Estimated GFR > 60 BUN/Creatinine Ratio 30.2 H Glucose 92 Calcium 8.7 Magnesium 2.2 Total Bilirubin 0.3 AST 22 ALT 13 Alkaline Phosphatase 79 Total Creatine Kinase 30 CK-MB (CK-2) TNP CK-MB (CK-2) Rel Index TNP Troponin I < 0.012 Total Protein 6.1 L Albumin 3.5 Globulin 2.6 Albumin/Globulin Ratio 1.3 Lipase 122 SARS-CoV-2 (PCR) 11/23/21 11/23/21 11/24/21 10:00 17:59 04:54 WBC 7.5 RBC 3.31 L Hgb 9.1 L Hct 27.4 L MCV 82.9 MCH 27.4 MCHC 33.1 RDW 15.5 H Plt Count 149 L Neut % (Auto) 83.3 H D Lymph % (Auto) 11.7 L Ada % (Auto) 4.6 Eos % (Auto) 0.1 L Baso % (Auto) 0.3 Neut # (Auto) 6200 Lymph # (Auto) 900 L Ada # (Auto) 300 Eos # (Auto) 0 Baso # (Auto) 0 PT INR APTT Sodium Potassium Chloride Carbon Dioxide BUN Creatinine Estimated GFR BUN/Creatinine Ratio Glucose Calcium Magnesium Total Bilirubin AST ALT Alkaline Phosphatase Total Creatine Kinase CK-MB (CK-2) CK-MB (CK-2) Rel Index Troponin I < 0.012 Total Protein Albumin Globulin Albumin/Globulin Ratio Lipase SARS-CoV-2 (PCR) Negative 11/24/21 04:54 WBC RBC Hgb Hct MCV MCH MCHC RDW Plt Count Neut % (Auto) Lymph % (Auto) Ada % (Auto) Eos % (Auto) Baso % (Auto) Neut # (Auto) Lymph # (Auto) Ada # (Auto) Eos # (Auto) Baso # (Auto) PT INR APTT Sodium 131 L Potassium 4.0 Chloride 95 L Carbon Dioxide 33 H BUN 13 Creatinine 0.47 L Estimated GFR > 60 BUN/Creatinine Ratio 27.7 H Glucose 125 H Calcium 8.4 Magnesium 2.0 Total Bilirubin 0.3 AST 22 ALT 16 Alkaline Phosphatase 76 Total Creatine Kinase CK-MB (CK-2) CK-MB (CK-2) Rel Index Troponin I Total Protein 5.9 L Albumin 3.4 L Globulin 2.5 Albumin/Globulin Ratio 1.4 Lipase SARS-CoV-2 (PCR) [facility] Medical History Acute CVA (cerebrovascular accident) (2017) Anaphylactic reaction (07/31/08) Aortic stenosis Arthritis Chest pain Chronic obstructive pulmonary disease Constipation Coronary artery disease Current smoker (05/17/12) Depression Dermatitis Difficulty swallowing Diverticulosis 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) GERD (gastroesophageal reflux disease) Heart murmur History of aortic valve replacement with bioprosthetic valve (10/23/10) Hyperlipidemia Hypertension Hypothyroidism Macular degeneration Malignant neoplasm of lung Mitral valve disorder Neuropathy Nocturnal hypoxia Non Hodgkin's lymphoma Osteoarthritis (07/23/10) Osteoporosis (~2015) Peripheral neuropathy Pulmonary embolism Raynaud's disease (05/17/12) 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) Surgical History H/O total hysterectomy History of appendectomy History of cataract removal with insertion of prosthetic lens (2008) History of cholecystectomy History of lumpectomy of left breast History of lung surgery (1994) History of removal of Port-a-Cath (07/04/17) History of surgery Hx of aortic valve replacement (06/22/13) Hx of fusion of cervical spine (~03/2004) Hx of fusion of cervical spine (02/2006) Hx of hysterectomy (~04/1987) Status post cholecystectomy (08/22/09) Family History Mother Cancer Colon cancer Heart disease Father Lung cancer Brother Lung cancer Sister CVA (cerebral vascular accident) Heart disease Daughter Myocardial infarction Social History marital status: unknown household members: none Smoking Status: Former smoker Tobacco: How many years used: 50 second hand exposure: Yes alcohol intake: current substance use type: does not use Assessment & Plan Time Spent With Patient Critical Care time: I spent a total of [] minutes of critical care time on this patient's care today ; this time is exclusive of procedural time. Quality VTE Deep Vein Thrombosis/Pulmonary Embolism Present on Admission: No
[2021-11-24] MEDS: ALBUTEROL/IPRATROPIUM 3 ML AMPUL INH ×2 (08:12→20:30)
[2021-11-24] MEDS: DOCUSATE 100 MG CAPSULE PO ×2 (08:37→20:22)
[2021-11-24] MEDS: LEVOTHYROXINE 50 MCG TABLET PO (08:37)
[2021-11-24] MEDS: GABAPENTIN 400 MG CAPSULE PO (08:38)
[2021-11-24] MEDS: PANTOPRAZOLE DR 40 MG TABLET PO ×2 (08:38→20:22)
[2021-11-24] MEDS: ASPIRIN EC 81 MG TABLET PO (08:38)
--- NOTE | 2021-11-24 11:27 | PM.PN.1 ---
Subjective Subjective Date Patient Seen: 11/24/21 Interval history: Patient's surgery delayed today due to need for echocardiogram. She is down to 3L via NC today, she denies really feeling short of breath at all. She denies chest pain, abdominal pain, nausea, vomiting, diaphoresis. She had a low grade fever overnight. Urinalysis ordered. Exam Vital Signs (past 8 hours): - 11/24/21 04:00 11/24/21 04:00 11/24/21 08:17 Temperature 98.3 F Pulse Rate 99 H Respiratory Rate 20 Blood Pressure 137/63 Pulse Oximetry 92 92 97 Oxygen Delivery Method Venturi Mask Nasal Cannula Oxygen Flow Rate 9 3 11/24/21 08:00 11/24/21 07:00 Temperature 98.0 F Pulse Rate 95 H Respiratory Rate 17 Blood Pressure 163/53 H Pulse Oximetry 93 Oxygen Delivery Method Venturi Mask Oxygen Flow Rate 3 Fraction of Inspired Oxygen 35 SaO2/FiO2 Ratio 271 Oxygen Delivery Method Nasal Cannula Oxygen Flow Rate 3 Narrative Exam Narrative: General:?elderly female, somewhat frail, no acute distress. but on a venti-mask HEENT:? Normocephalic, atraumatic, extraocular muscles intact, oral pharynx is clear and mucous membranes are moist. Neck: supple and symmetric, trachea is midline, no cervical adenopathy. Negative for JVD Chest:? Normal AP diameter and contour without kyphoscoliosis, no tachypnea, equal chest rise bilaterally. Lungs:? bibasilar rhonchi, no wheezing. Cardio:?tachycardia, regular rhythm, no m/r/g. Abdomen: S NT ND. Musculoskeletal:?R ankle bandaged, no other joint tenderness but does endores L tib/fib tenderness on exam. Extremities: No edema or joint effusions. No cyanosis or clubbing. Skin:? Pale,? Warm to touch,dry and intact without rashes, ulcerations or petechiae.? Neuro:? Alert and orientated x3,? sensation diminshed bilateral feet, no gross deficits noted of cranial nerves. Psych:? Patient has a well-kept appearance, appropriate affect, mental status attitude thought context and judgment are appropriate for age. Objective Labs Result Diagrams: 11/24/21 04:54 11/24/21 04:54 Labs: Laboratory Results - last 24 hr 11/23/21 11/24/21 11/24/21 17:59 04:54 04:54 WBC 7.5 RBC 3.31 L Hgb 9.1 L Hct 27.4 L MCV 82.9 MCH 27.4 MCHC 33.1 RDW 15.5 H Plt Count 149 L Neut % (Auto) 83.3 H D Lymph % (Auto) 11.7 L [place] % (Auto) 4.6 Eos % (Auto) 0.1 L Baso % (Auto) 0.3 Neut # (Auto) 6200 Lymph # (Auto) 900 L [place] # (Auto) 300 Eos # (Auto) 0 Baso # (Auto) 0 Sodium 131 L Potassium 4.0 Chloride 95 L Carbon Dioxide 33 H BUN 13 Creatinine 0.47 L Estimated GFR > 60 BUN/Creatinine Ratio 27.7 H Glucose 125 H Calcium 8.4 Magnesium 2.0 Total Bilirubin 0.3 AST 22 ALT 16 Alkaline Phosphatase 76 Troponin I < 0.012 Total Protein 5.9 L Albumin 3.4 L Globulin 2.5 Albumin/Globulin Ratio 1.4 PFSH Medical History Acute CVA (cerebrovascular accident) (2017) Anaphylactic reaction (07/31/08) Aortic stenosis Arthritis Chest pain Chronic obstructive pulmonary disease Constipation Coronary artery disease Current smoker (05/17/12) Depression Dermatitis Difficulty swallowing Diverticulosis 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) GERD (gastroesophageal reflux disease) Heart murmur History of aortic valve replacement with bioprosthetic valve (10/23/10) Hyperlipidemia Hypertension Hypothyroidism Macular degeneration Malignant neoplasm of lung Mitral valve disorder Neuropathy Nocturnal hypoxia Non Hodgkin's lymphoma Osteoarthritis (07/23/10) Osteoporosis (~2015) Peripheral neuropathy Pulmonary embolism Raynaud's disease (05/17/12) 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) Surgical History H/O total hysterectomy History of appendectomy History of cataract removal with insertion of prosthetic lens (2008) History of cholecystectomy History of lumpectomy of left breast History of lung surgery (1994) History of removal of Port-a-Cath (07/04/17) History of surgery Hx of aortic valve replacement (06/22/13) Hx of fusion of cervical spine (~03/2004) Hx of fusion of cervical spine (02/2006) Hx of hysterectomy (~04/1987) Status post cholecystectomy (08/22/09) Family History Mother Cancer Colon cancer Heart disease Father Lung cancer Brother Lung cancer Sister CVA (cerebral vascular accident) Heart disease Daughter Myocardial infarction Social History marital status: unknown household members: none Smoking Status: Former smoker Tobacco: How many years used: 50 second hand exposure: Yes alcohol intake: current substance use type: does not use Assessment & Plan Assessment & Plan narrative: 1. R ankle fractures, acute, present on admission, pathologic secondary to osteoporosis - orthopedic surgery consulted, appreciate assistance with intervention, Dr. Verdugo following - patient has a number of underlying chronic and possibly acute medical co-morbidities. She has poor waveform on pulse oximetry and oxygenation has been difficult to monitor thus far but is much improved today on 3L NC and appears comfortable. She is medically a high risk patient. This was discussed with her. - surgery delayed until TTE performed to further assess valve. - hopeful for OR tomorrow. 2. acute on chronic hypoxemic respiratory failure - troponnin negative x3. - suspect secondary to COPD exacerbation, continue prednisone. - does not appear cardiac related, though records available for review now are from 2 years ago. - have ordered TTE as noted above. - normally patient on 3L intermittently at home, she has significantly more requirements here thus far. - XR chest without infiltrates. 3. COPD / emphysema with probable exacerbation - continue steroids as noted above. - albuterol prn with duoneb. consider additional pulmicort. 4. history of AVR with elevated gradients, history of CAD, history of CVA - per prior cardiology notes (most recent I have is from 2 years ago) they considered stress testing and apparently have recommended valve replacement again which the patient did not wish to persue. Last EF was 70% that I have records for (2 years ago) - TTE pending. - troponins have been negative - continue ASA, statin - 30 seconds approx. of a supraventricular tachycardia noted on telemetry, rate 160s, appeared regular, unable to capture on formal EKG. 5. R lung squamous cell carcinoma, non-hodkins lymphoma - s/p chemo and radiation, was apparently not a surgical candidate for resection per outpatient notes due to lung disease. 6. chronic iron deficiency anemia - appears stable 7. history of CVA - continue home asa, statin changed to formulary alternative. 8. history of GI bleeding - continue home PPI BID 9. ground level fall - also complains of L tib/fib pain but XR imaging was negative. - she has chronic dizziness when standing, documented with cardiology as long as a few years ago, symptoms are not uncommon for her. 10 Advanced care planning - She would want to be resuscitated if she could recover, but does not wish to be kept alive with the help of machines. Surrogate decision maker as noted below. - Patient would be agreeable to short term SNF prior to returning home. She does not want to live in a halfway. She would be agreeable to caretakers or nurses coming to help her at home. Code: Full as discussed with the patient, surrogate is her daughter. DVT: hold prior to possible surgery Dispo: Admit as inpatient given patient's current medical issues and complexity and need for surgical stabilization of her R ankle. I have utilized all available immediate resources to obtain, update, or review the patient's current medications. COVID-19 COVID-19 status: Negative Time Spent With Patient Critical Care time: I spent a total of [] minutes of critical care time on this patient's care today; this time is exclusive of procedural time. Quality VTE Deep Vein Thrombosis/Pulmonary Embolism Present on Admission: No
--- NOTE | 2021-11-24 13:11 | CM.DANOTE ---
DCP: Case received, EMR reviewed and met with patient. Friend, Nelly, was at bedside. Introduced self and role. Was able to obtain information regarding patient's baseline activity level at home prior to hospitalization, as well as her current living situation. DCP assessment completed with information currently available. Patient is a 81 year old female who admitted yesterday afternoon to the care of the hospitalist team. PCP: EDDIE Cheema. Payer: confirmed: Medicare/[employer]. Patient came to the hospital secondary to a ground level fall that occurred at home. Patient has history of right lung squamous cell carcinoma, and is currently on immunotherapy. She also has history of non-Hodgkin's lymphoma, aortic stenosis. According to notes, patient had been unsteady on her feet, secondary to her chronic neuropathy. She also holds onto the frye to move. She had let her dog out, and may have passed out before remembers falling. Patient had some left-sided rib pain, mostly right ankle pain. Patient was diagnosed with unstable ankle fracture with medial and laeral malleolar fracture. Patient is scheduled for surgery, but not until tomorrow, since she has cardiac issues, and will need some cardiac testing. Met with patient and friend in her room. Patient was sitting up in bed, alert and oriented. Confirmed that she does live alone in [place], and has a tenant that lives [facility]. Her friend Nelly, who was in the room, lives nearby. Patient has a daughter named Kenyetta Chappell who is now residing in [facility]. Patient indicated, it is ok to call her with any additional questions, she has a medical background. At patient's baseline, she has a walker for home use, and a cane. She only drives short distances. She confirmed that she sees her oncologist, Dr. Bhat, next to this hospital, but is not due for her chemo for 5-7 weeks. Did mention usp to patient, should she need it, Case [facility]. She is open to suggestions, as long as her insurance will cover it. According to notes, post surgery, patient most likely will be wearing a boot. She also may be working with P.T. once medically cleared. Hospitalist did indicate, there is a possibility of patient being transferred to a higher level hospital due to her cardiac issues. P: DCP to continue to follow for any needs. There is a possibility of patient being transferred out, versus her having her surgery here. Patient may need usp if she remains here, after surgery. Will follow closely. Roberta Armijo RN/Director Of Events Discharge Planning/Care Management Advanced directive, confirm from FAMILY Start: 11/23/21 14:53 Freq: Q24H Status: Active Protocol: Document 11/23/21 15:02 MS (Rec: 11/23/21 15:08 MS [id number]) Advance Directive, confirm on record Time 15:08 Person contacted on file Copy received No Advanced directive available on record Yes CM Discharge Assessment Start: 11/24/21 13:08 Freq: Status: Active Protocol: Document 11/24/21 13:08 VM (Rec: 11/24/21 13:11 VM [id number]) Discharge Planning Assessment Assigned Lidar Technician Roberta Armijo RN/Director Of Events Advance Directives? Yes Advance Directives on File No History Provided By Patient,Medical Record Prior Living Arrangements House Household Members none Type of transporation used prior to Drives own vehicle admit Comment only drives short distances. Independent with ADL's Yes Is patient alert and oriented? Yes Needs Assistance With Home Chores / Shopping Caregiver for Another No DME Already Rented / Owned FWW / Walker,Cane Patient/Family Preference Home with Home Health Barriers to Discharge Yes Comment Lives alone, new ankle fracture, and is currently on chemo. Will make it challenging to get her to a usp facility. Discharge Plan Home Transportation Arrangement Friend to provide transportation home, if home is the plan. Referrals Initiated Other Additional Comment Patient is scheduled for surgery tomorrow, will see how she does after surgery. If patient plan is home with home health There are some presigned face : Has signed face to face form been to face forms. completed? Medicare Choice List Provided No SNF/HH Preference Patient is not yet medically stable for surgery, which will not occur until tomorrow, then, will work with Aleksandar Kim Updated in Patient Room with Yes name and ext. # of Lidar Technician Review Status In Process Next Review Type Continued Stay Review
[2021-11-24 14:11] LABS: Appearance Urine UA CLEAR; Bilirubin Urine UA NEGATIVE (NEGATIVE); Color Urine UA YELLOW; Glucose Urine UA NEGATIVE (Negative); Ketones Urine UA 1+ (NEGATIVE); Leukocyte Esterase Urine UA NEGATIVE (NEGATIVE); Nitrite Urine UA NEGATIVE (Negative); Occult Blood Urine UA 2+ (Negative); Protein Urine UA TRACE (Negative); Urobilinogen Urine UA 0.2 E.U./dL (0.2)
[2021-11-24 14:40] LABS: Bacteria Urine None Seen; Culture Indicated Urine Cult Not Indicated; RBC Urine 5-10/HPF (0-5/HPF); Squamous Epithelial Cell Urine 0-1 /HPF (0-5/HPF); WBC Urine 0-1/HPF (0-5/HPF)
--- NOTE | 2021-11-24 18:18 | PC.NURSE ---
case aide: Daughter Kenyetta asked for case aide to call her at [phone]
[2021-11-24] MEDS: HYDROMORPHONE 0.5 MG INJ IV (20:16)
[2021-11-24] MEDS: ATORVASTATIN 20 MG TABLET 40 MG PO (20:22)
[2021-11-24] MEDS: MIRTAZAPINE 15 MG TABLET PO (20:22)
[2021-11-24] MEDS: GABAPENTIN 400 MG CAPSULE 800 MG PO (20:22)
[2021-11-24] MEDS: AMITRIPTYLINE 25 MG TABLET 50 MG PO (20:23)
[2021-11-24] MEDS: METOPROLOL ER 25 MG TABLET PO (20:24)
[2021-11-25] VITALS (41 sets, daily range): BP systolic 56–130; BP diastolic 25–70; PULSE 44–110; RESP 12–49; TEMP 35.9–37.3; O2SAT 85–96; BMI 22.6
[2021-11-25 05:17] LABS: Add Manual Diff / Slide Review NO; Basophils Absolute Auto 0 /uL (0-100); Basophils Percent Auto 0.3 % (0-2); Eosinophils Absolute Auto 300 /uL (0-450); Eosinophils Percent Auto 4.1 % (2-4); Hemoglobin 8.9 g/dL (12.0-16.0); Lymphocytes Absolute Auto 900 /uL (1100-4500); Lymphocytes Percent Auto 11.7 % (25-40); Mean Corpuscular HGB Conc 33.1 % (30-36); Mean Corpuscular Hemoglobin 27.4 PG (26-34); Mean Corpuscular Volume 82.6 fL (80-100); Monocytes Absolute Auto 500 /uL (0-900); Neutrophils Absolute Auto 5900 /uL (1500-7000); Neutrophils Percent Auto 76.9 % (50-75); Platelet Count 157 X10^3/uL (150-400); Red Blood Cell Count 3.26 X10^6/uL (4.0-5.2); Red Cell Distribution Width 15.6 % (11.6-14.8); White Blood Cell Count 7.7 X10^3/uL (4.5-11.0)
[2021-11-25] MEDS: diphenhydrAMINE 50 MG/ML VIAL 25 MG IV ×2 (05:26→20:30)
[2021-11-25] MEDS: HYDROMORPHONE 0.5 MG INJ IV ×3 (05:26→20:24)
[2021-11-25 05:36] LABS: Alanine Aminotransferase 13 IU/L (<35); Albumin 3.1 g/dL (3.5-5.0); Albumin Globulin Ratio 1.2 (1.0-2.8); Alkaline Phosphatase 70 U/L (38-126); Aspartate Aminotransferase 20 IU/L (14-36); BUN Creatinine Ratio 32.8 (6-22); Bilirubin Total 0.2 mg/dL (0.2-1.3); Blood Urea Nitrogen 20 mg/dL (7-17); Calcium 8.4 mg/dL (8.4-10.2); Carbon Dioxide 35 mmol/L (22-32); Chloride 94 mmol/L (98-107); Estimated Glomerular Filt Rate > 60 mL/min (>60); Globulin 2.6 g/dL (1.7-4.1); Glucose 115 mg/dL (80-110); HEMOLYSIS < 15 (0-50); Potassium 4.4 mmol/L (3.4-5.1); Sodium 132 mmol/L (137-145); Total Protein 5.7 g/dL (6.3-8.2)
[2021-11-25] MEDS: PANTOPRAZOLE DR 40 MG TABLET PO ×2 (06:45→21:00)
[2021-11-25] MEDS: ALBUTEROL/IPRATROPIUM 3 ML AMPUL INH ×3 (07:58→20:07)
--- NOTE | 2021-11-25 08:35 | CM.DPC ---
Addendum entered by Roberta Armijo R.N. 11/25/21 15:34: Sowmya from [facility] called back, can accept patient, will not need to be covering her chemo meds. Patient will need to be quarantined, since current booster is not yet available. August also indicated that they should be able to take patient to her chemo appointments as well. Updated patient, she has the Medicare Choice List, would prefer to be here near the hospital. Gave patient also the option of home health if needed, agencies listed on the back. Will need to see how patient does with P.T, but she is opened to going to [facility] as long as her insurance pays for it.She would be eligible by 11/26, Medicare midnight. Will complete PASSR. Original Note: DCP Cont: Received a note from nursing, that patient's daughter, Kenyetta Chappell had called. This DC General Manager In Training called her back, introduced self and role. Confirmed that daughter lives in [place], [place]. 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 She indicated that my mom will say that I can stay with her after the surgery, and I can't. She indicated, she has a business, and can't leave, but is more than happy to have her mom stay with her, but she won't. She stated, she has her network of friends, and her dog, that she won't leave. Daughter mentioned concerns that her mom will be needing more help, and skilled rehab may be necessary. Did let daughter know that the barrier is that she is receiving chemo every 3 weeks, and that facility can't absorb the cost, and is unclear if the facility can take her to her chemo appointment. Asked daughter if her and patient have discussed exterminator helper termite planning, she stated, my mom is stubborn, she feels that she can manage home ok. Did let her know that patient is decisional, and if she wants to go home, can't force her to go to a facility, if she can qualify. Asked her if patient has the funds for caregivers, and she stated that she does, but doesn't think that she needs them. Let daughter know that patient is scheduled for her surgery this afternoon, and will see how she does post surgery with P.T. Did speak to [id number] and confirmed that she is actively getting chemo every 3 weeks. P: DCP to continue to follow. Surgery is planned for this afternoon, and will have to see how she does post surgery. Can still seek [facility] facilities, and see if it is possible for them to accept. [place] speak to Sowmya at [facility], and she stated, the problem is that they get billed for Medicare, and they also get charged for chemo meds if it's under their umbrella. Sowmya is willing to review to see if this is possible. Will continue to follow closely. Roberta Armijo RN/Hospitality Director
[2021-11-25] MEDS: LACTATED RINGERS 1,000 ML 42 ML IV ×2 (09:47→13:45)
--- NOTE | 2021-11-25 09:47 | PM.PREOP ---
Pre-operative Note COVID-19 COVID-19 status: Negative Interval Note History & Physical reviewed/Exam performed by Physician: Yes Changes to H&P: No
--- NOTE | 2021-11-25 10:05 | SUR.HOLD ---
Block start [id number]] . Monitoring initiated and maintained throughout procedure. Oxygen and medications given per anesthesiologist instructions. Patient remained stable throughout procedure, no adverse reactions noted. Block end time [0955].
[2021-11-25] MEDS: CEFAZOLIN 2 GM/100 ML PREMIX 100 ML IV (10:37)
[2021-11-25] MEDS: BUPIVACAINE 0.25% W/ EPI 30 ML VIAL INJ (10:59)
--- NOTE | 2021-11-25 11:08 | SUR.OPER ---
Supine on padded OR bed, head on pillow, arms secured on padded arm boards at <90 degrees abduction, legs uncrossed, safety belt at lower torso, tape over blanket over left lower leg. Gel pad under left lower leg/heel. Rolled blanket bump under right hip and folded blanket bump under right lower leg placed by Dr. Verdugo. Right leg in control of the Surgeon.
--- NOTE | 2021-11-25 11:38 | SUR.OPER ---
Patients glasses and upper/lower dentures (in green container with patient label) brought with patient to OR then to PACU with patient.
--- NOTE | 2021-11-25 11:54 | DI.RAD.S_ITS ---
PROCEDURE: XR ANKLE LT MIN 3V INDICATIONS: RIGHT ANKLE FRACTURE REPAIR TECHNIQUE: Intraoperative fluoroscopic views of the ankle were acquired. COMPARISON: [facility], CR, XR ANKLE RT MIN 3V, 11/23/2021, 10:20. FINDINGS: Bones: Intraoperative fluoroscopic views demonstrate ORIF of the right ankle. IMPRESSION: Multiple intraoperative fluoroscopic views of right ankle ORIF. Dictated by: Shruti Sotomayor M.D. on 11/25/2021 at 14:37 Approved by: Shruti Sotomayor M.D. on 11/25/2021 at 14:38
--- NOTE | 2021-11-25 12:05 | PM.PROC.1 ---
Procedures Date/Time Date of procedure: 11/25/21 Time of procedure: 10:00 Nerve Block Time out performed: Yes Local anesthetic used: other (5mL 2% Lidocaine, 15mL 0.2% Ropivacaine) Location of anesthetic used: lateral popliteal Amount of anesthesia used (mL): 20 Nerve blocks: other (sciatic nerve) Procedure successful: Yes Patient tolerated procedure: well Complications: none Additional comments: RIGHT Ultrasound guided lateral popliteal sciatic nerve block for post operative pain management, as discussed with surgeon. Risks, benefits discussed with patient and daughter. Consent verified. Site marked by surgeon. Time out performed. Standard ASA monitors applied, NC O2, 25mcg fentanyl. Pt supine. Chloroprep. Sciatic nerve identified proximal to popliteal fossa, at bifurcation. Lidocaine local skin wheal. 100mm x 21g Pajunk needle advanced with in-plane US guidance to nerve. Negative aspiration. 5mL 2% lidocaine and 15mL 0.2% ropivacaine injected with intermittent negative aspiration. Good LA spread noted on US. No pain, no paresthesias. VSS. Tolerated well.
[2021-11-25] MEDS: LACTATED RINGERS 1,000 ML 50 ML IV (12:32)
[2021-11-25] MEDS: ALBUTEROL 2.5 MG/3 ML NEB (ADULT) INH (12:44)
--- NOTE | 2021-11-25 12:47 | SUR.PHASEI ---
Verbal orders form Dr May at bedside verified.
[2021-11-25 12:54] LABS: Add Manual Diff / Slide Review NO; Basophils Absolute Auto 0 /uL (0-100); Basophils Percent Auto 0.3 % (0-2); Eosinophils Absolute Auto 300 /uL (0-450); Eosinophils Percent Auto 3.2 % (2-4); Hematocrit 25.4 % (36-46); Hemoglobin 8.3 g/dL (12.0-16.0); Lymphocytes Absolute Auto 1300 /uL (1100-4500); Lymphocytes Percent Auto 13.1 % (25-40); Mean Corpuscular HGB Conc 32.7 % (30-36); Mean Corpuscular Hemoglobin 27.2 PG (26-34); Mean Corpuscular Volume 83.2 fL (80-100); Monocytes Absolute Auto 500 /uL (0-900); Monocytes Percent Auto 5.5 % (3-14); Neutrophils Absolute Auto 7600 /uL (1500-7000); Neutrophils Percent Auto 77.9 % (50-75); Platelet Count 147 X10^3/uL (150-400); Red Blood Cell Count 3.05 X10^6/uL (4.0-5.2); Red Cell Distribution Width 15.6 % (11.6-14.8); White Blood Cell Count 9.8 X10^3/uL (4.5-11.0)
--- NOTE | 2021-11-25 13:01 | PM.EVENT ---
Event Note Date Patient Seen: 11/25/21 Time Patient Seen: 12:50 Event Note (Rapid Response, Code, or fall): Bradycardia in PACU: Upon arrival to PACU, pt was hypotensive (but not far from pre-op BP's). Suddenly, HR dropped from approx 100 to low 40's, BP dropped to 50's/30's, pt would open eyes to verbal stimulus, but otherwise unresponsive. I administered 2 doses of glycopyrrolate 0.2mg, a total of 40mg of ephedrine, and an albuterol neb treatment. HR suddenly returned to high 90's, with improvement to SBP in the 90's. Pt became altert and responsive. ECG showed sinus tachycardia and no evidence of acute ischemia. Case was discussed with attending hospitalist and pt was referred to ICU for monitoring. I then had a phone call with daughter Kenyetta after resuscitation explaining events and status change to ICU.
[2021-11-25 13:08] LABS: BUN Creatinine Ratio 36.2 (6-22); Blood Urea Nitrogen 21 mg/dL (7-17); Calcium 8.2 mg/dL (8.4-10.2); Carbon Dioxide 32 mmol/L (22-32); Chloride 96 mmol/L (98-107); Creatine Kinase 24 U/L (30-135); Estimated Glomerular Filt Rate > 60 mL/min (>60); Glucose 171 mg/dL (80-110); Potassium 4.9 mmol/L (3.4-5.1); Sodium 130 mmol/L (137-145)
--- NOTE | 2021-11-25 13:10 | P.OP_ITS ---
Operative Date/Time/Diagnoses Date of procedure: 11/25/21 Time of procedure: 10:30 Pre-op diagnosis: Right ankle fracture dislocation s83.853 Syndesmosis disruption s93.439 Syncope Lung cancer Chronic anemia Post-op diagnosis: same Procedure & Clinicians Procedure: Open reduction internal fixation trimalleolar ankle fracture without fixation of posterior lip CPT code 33035 Open reduction internal fixation syndesmosis CPT code 95423 Same procedure as scheduled: Yes Indications: Patient is a 81-year-old female with lung cancer and history of cardiac valve replacement she had a syncopal episode at home and fell and sustained a unstable trimalleolar ankle fracture dislocation. She was indicated for operative treatment provide stability and allow mobilization and avoid the risks associated with nonunion malunion and prolonged immobility. She underwent medical optimization by the internal medicine team and was optimized for surg benito. This was selected for spinal and peripheral nerve block to help limit general anesthetic. The risks and benefits of the procedure have been discussed with the patient and she was given the opportunity to ask questions. The risks of surgery include but are not limited to infection, malunion, nonunion, persistence of pain, damage to nerves and blood vessels, posttraumatic arthritis, DVT, PE, cardiopulmonary complications and . The patient expressed a thorough understanding of the risks and benefits of surgery and has elected to proceed. Consent was signed. Surgeon: Марина Verdugo Click Yes if Unassisted: Yes Anesthesia Type: Spinal, Peripheral nerve block and Local (Additional 0.25% Marcaine with epinephrine was injected along the saphenous distribution.) Operative Notes Findings: Shortened oblique fibula fracture, small displaced posterior malleolus fracture. Small displaced medial malleolus fracture, disrupted syndesmosis Short oblique displaced fibular fracture was reduced and stabilized with a fibulock intramedullary nail, the medial malleolus was fixed with 2 cannulated screws, the posterior malleolus fracture was treated non operatively and the disrupted syndesmosis was fixed with 2x 3.5 cortical screws Closure Type: primary Specimen(s): none sent Prosthetic devices, grafts, tissues, transplants, or devices: fibula:Arthrex 4.0 Fibulock fibular nail and 2.7 interlocking screws x 3 (14,16,20) syndesmosis: arthrex 2x 3.5 cortical screws medial mal: arthrex 2x 40mm long thread 4.0 cannulated screws Applied: other (boot) Estimated Blood Loss (mL): 10 Blood products transfused: none Tourniquet time (min): 57 Procedure in detail: Patient was seen in the preoperative area the site of surgery marked informed consent confirmed. She was brought back to the operating room by the anesthesia team. A regional block and a spinal block were performed by the anesthesia team for postoperative pain control and to minimize general anesthetic. The patient was then positioned supine on operative table. All bony prominences well padded. A well-padded thigh tourniquet was placed. An SCD was placed on the contralateral lower extremity and ipsilateral thigh bump was placed. The operative extremity was raised up on a bump of blankets. The right lower extremity was prepped and draped in the standard sterile fashion. A formal time-out procedure was performed confirming the patient's side and site of surgery administration of appropriate preoperative antibiotics. And presence of informed consent. Implants were in the room and accounted for. All were in agreement. Attention was turned to the right leg. There was ecchymosis along the lateral leg into the area of the fracture. There was a very small serous blister. Otherwise globally friable skin. No open wounds. The Esmarch was used for exsanguination and the tourniquet raised on the thigh to 250 mmHg. The C-arm was brought in and the level of the fibular fracture was marked out as well as the tip of the fibula and a location 1 cm distal. Additionally the level of the medial malleolus fracture was marked out. Next a 3-4 cm incision was made over the level of the distal fibula fracture through the skin and subcutaneous tissue. Fracture hematoma was cleaned. A [place] elevator was used to mobilize the fracture and through minimally invasive approach this was reduced and held in place with a lobster claw clamp obtaining length and alignment. This was checked on fluoroscopy and then a small incision was made in line with the fibula 1 cm distal to it. The guidewire for the fibulock nail was placed down to bone and checked on AP fluoro to be in appropriate alignment and then advanced towards the canal this was then checked on the lateral view and found to be a little anterior so the parallel guide was used to place another wire just posterior to this. This was advanced on oxalate and advanced into the canal in appropriate alignment. This was placed to the appropriate depth then t he other guidewire was removed. At this point the opening drill was used followed by the 3.2 and then the 3.8 a drills. The 4.0 fibulock nydia was selected then this was inserted. To the proper depth. This was checked with a wire through the end slot making sure this was just buried. Next the screwdriver was inserted into the nail and the talons were deployed. Next attention was turned to the distal interlock screws. The 3 distal 2.7 interlock screws were placed the to lateral to medial and 1 anterior to posterior screw were placed a carefully checking in AP and lateral planes. Once this was completed attention was turned to the medial malleolus a open incision was taken centered over the fracture down through the skin subcutaneous tissue. The periosteum was opened and the fracture was cleared of hematoma. The joint was visualized. There was an osteochondral lesion on the medial talar dome this was small. Periosteum was cleaned out of the joint. The fracture was reduced and held with a pointed reduction clamp. Then 2 wires for the 4.0 cannulated screws were placed anterior and posterior to the clamp talons and checked in AP and lateral planes. Once this was completed these were measured and drilled for screws. Then 2x 40 mm long thread 4.0 cannulated screws were placed these were also out of the Arthrex set. Then attention was returned to the lateral side syndesmosis was unstable. using thumb pressure the syndesmosis was reduced and 2x 3.5 tricortical syndesmotic screws were placed. These were drilled tetra cortical. Final x-rays were taken AP mortise and lateral views demonstrating anatomic reduction of the trimalleolar ankle fracture. Wounds were then irrigated and closed in a layered fashion with 2-0 Vicryl 4-0 Monocryl and 3-0 nylon suture. Sterile dressing was placed including Xeroform gauze Webril Vinicio wrap patient was placed into a walking boot dressing. Drapes removed anesthesia was terminated the patient was taken to the postoperative unit. There no immediate complications from this procedure. All counts were correct. Complications: none Post-operative Condition: critical Disposition: ICU Plan for aftercare: Patient developed bradycardia and in the PACU after surgery and so we going to the ICU for monitoring. Otherwise postop plan will be weightbear as tolerated in boot with a walker. Elevate above the heart level as much as possible to help with swelling and incision healing. If boot uncomfortable may take it off in bed and exchange for a night splint but should wear either the boot or resting night splint to prevent Achilles contracture. Keep dressing clean dry and in place. Sutures will remain in place 2-4 weeks. Patient has a thin skin so these may in the place longer. Recommend Lovenox 4 weeks for DVT prophylaxis due to increased risks with the a immobility, and cancer
--- NOTE | 2021-11-25 13:15 | SUR.PHASEI ---
11/25/21-1230 Patient recieved into pacu at 1228-Bp 7032,HR 97 sr,rr 15-poor sat pickup reported preop/intra op-records 85%. Variable sites checked for better waveform readings. color pale. oxygen at 4l nc. mentally: responds sleepy when attempt to inquire how she was. ? [place] . rt le dressing cdi, and elevated and ice. report from OR Crew obtained. Bp dropped to 53/31-Hr down to 84 regular. mentation diminished response-grunted. trendelenberg. Hr droppped to 39-44-yancy to Second degree hb type II. Anesthesia, Dr May, remained at side. nebulizer given to stimulate airway. iv meds pushed by Anesthesia-Glycopyrilate, and pressor. ekg 12 lead ordered . labs sent stat. icu bed per anesthesia requested. bp changed to left calf as attempt iv 2nd access. no changes w/ bp from left arm to left leg. 1246-bp up to 96/28-HR st at 110. Patient now cognitive and answering questions appropriately. Sats still sporatic at readings. slowly out of trendelenberg to hob elevated 20 degrees and fob elevated. 1300- Dr May spoke with hospitalist- to go to ICU postop. started on ice chip. swallows ok. minimal response with motion to toes. cool, pink, equal to left foot. dressing remains cdi. 1310-Report to PROCESSING ASSOCIATEKAREY Irwin RN, transfered to icu by savings counselor, Kenyetta Basurto, via bed with transport monitor and 4l nc oxygen. Denies sob or distress in breathing. no pain. no nausea.
[2021-11-25 13:42] LABS: HEMOLYSIS < 15 (0-50)
[2021-11-25 13:45] LABS: Troponin I 0.127 ng/mL (0.01-0.034)
--- NOTE | 2021-11-25 14:06 | PM.PN.1 ---
Subjective Subjective Date Patient Seen: 11/25/21 Time Patient Seen: 13:30 Interval history: Patient had open reduction internal fixation of her right ankle today. During the surgery itself her heart rate dropped momentarily to a rate of 40 and then resume to her normal rate. The cold molding press operator thought that maybe it was in relationship medication given approximately at the same time. However there was a recurrence of her paroxysmal drop in heart rate in the recovery room. There was no medication given at the time in the recovery room. Patient is currently postoperative in the ICU being monitored. Since arrival in the ICU patient has had no drop in heart rate. She also has had no arrhythmias. Of note in the patient's history there is the following:? PMH of CAD, AV replacement with bioprosthetic valve with high valve gradients as of 2 years ago (reportedly needing new valve per her senior vice president and chief information officer), COPD/emphysema with chronic hypoxic respiratory failure on 3L home O2 at night, HTN, HLD, hypothyroidism, Right lung SCC, non-hodkin's lymphoma who presented with R ankle pain after a fall at home. Patient states that for quite some time now she gets dizzy with sudden positional changes, more often in the mornings. It is questionable whether patient was having a drop heart rate because the patient did fall and injure her right ankle. Patient currently not complaining of any fever chills nausea vomiting or diaphoresis. No chest pain or palpitations. No shortness of breath wheezing or cough. No abdominal pain constipation or diarrhea. Has postoperative right ankle pain. Exam Vital Signs (past 8 hours): - 11/25/21 07:59 11/25/21 08:03 11/25/21 08:15 Temperature 98.5 F Pulse Rate 89 Respiratory Rate 18 Blood Pressure 96/53 L Pulse Oximetry 90 L 92 93 Oxygen Delivery Method Nasal Cannula Nasal Cannula Oxygen Flow Rate 4 5 4 11/25/21 09:15 11/25/21 09:15 11/25/21 08:00 Temperature 98.4 F Pulse Rate 104 H Respiratory Rate 26 H Blood Pressure 83/48 L Pulse Oximetry 96 Oxygen Delivery Method Nasal Cannula Nasal Cannula Nasal Cannula Oxygen Flow Rate 3 11/25/21 12:28 11/25/21 12:45 11/25/21 12:30 Temperature 96.6 F L Pulse Rate 97 H 110 H 84 Respiratory Rate 15 16 14 Blood Pressure 70/32 L 96/28 L 56/31 L Pulse Oximetry 85 L 92 86 L Oxygen Delivery Method Nasal Cannula Nasal Cannula Nasal Cannula Oxygen Flow Rate 4 4 4 11/25/21 12:35 11/25/21 12:40 11/25/21 13:28 Temperature 97.5 F L Pulse Rate 44 L 48 L 99 H Respiratory Rate 12 15 14 Blood Pressure 63/29 L 58/25 L 98/57 L Pulse Oximetry 89 L 90 L 91 Oxygen Delivery Method Nasal Cannula Room Air Oxygen Flow Rate 4 4 11/25/21 12:50 11/25/21 13:00 11/25/21 13:10 Temperature 96.6 F L Pulse Rate 108 H 108 H 103 H Respiratory Rate 16 16 17 Blood Pressure 96/56 L 108/60 100/58 L Pulse Oximetry 92 93 96 Oxygen Delivery Method Nasal Cannula Nasal Cannula Nasal Cannula Oxygen Flow Rate 4 4 4 11/25/21 13:30 11/25/21 13:31 11/25/21 13:31 Temperature Pulse Rate 100 H 100 H Respiratory Rate 17 23 Blood Pressure 107/52 L 116/59 L Pulse Oximetry 92 88 L Oxygen Delivery Method Oxygen Flow Rate Fraction of Inspired Oxygen 35 SaO2/FiO2 Ratio 271 Oxygen Delivery Method Nasal Cannula Oxygen Flow Rate 4 Narrative Exam Narrative: General:?elderly female, somewhat frail, no acute distress. Receiving O2 supplementation HEENT:? Normocephalic, atraumatic, extraocular muscles intact, oral pharynx is clear and mucous membranes are moist. Neck: supple and symmetric, trachea is midline, no cervical adenopathy. Negative for JVD Chest:? Normal AP diameter and contour without kyphoscoliosis, no tachypnea, equal chest rise bilaterally. Lungs:? Clear to auscultation. No wheezes or crackles. Cardio:?tachycardia of 103, regular rhythm, no m/r/g. Abdomen: Soft nontender bowel sounds normal. Musculoskeletal:?R ankle postoperative dressing, general tenderness. Extremities: No edema or joint effusions. No cyanosis or clubbing. Skin:? Pale,? Warm to touch,dry and intact without rashes, ulcerations or petechiae.? Neuro:? Alert and orientated x3,? sensation diminshed bilateral feet, no gross deficits noted of cranial nerves. Psych:? Patient has a well-kept appearance, appropriate affect, mental status attitude thought context and judgment are appropriate for age. Objective Labs Result Diagrams: 11/25/21 12:50 11/25/21 12:50 Labs: Laboratory Results - last 24 hr 11/24/21 11/25/21 11/25/21 13:30 05:07 05:07 WBC 7.7 RBC 3.26 L Hgb 8.9 L Hct 27.0 L MCV 82.6 MCH 27.4 MCHC 33.1 RDW 15.6 H Plt Count 157 Neut % (Auto) 76.9 H Lymph % (Auto) 11.7 L [place] % (Auto) 7.0 Eos % (Auto) 4.1 H Baso % (Auto) 0.3 Neut # (Auto) 5900 Lymph # (Auto) 900 L [place] # (Auto) 500 Eos # (Auto) 300 Baso # (Auto) 0 Sodium 132 L Potassium 4.4 Chloride 94 L Carbon Dioxide 35 H BUN 20 H Creatinine 0.61 Estimated GFR > 60 BUN/Creatinine Ratio 32.8 H Glucose 115 H Calcium 8.4 Magnesium 2.0 Total Bilirubin 0.2 AST 20 ALT 13 Alkaline Phosphatase 70 Total Creatine Kinase CK-MB (CK-2) CK-MB (CK-2) Rel Index Troponin I Total Protein 5.7 L Albumin 3.1 L Globulin 2.6 Albumin/Globulin Ratio 1.2 Urine Color Yellow Urine Appearance Clear Urine pH 5.0 Ur Specific [place] 1.010 Urine Protein Trace H Urine Glucose (UA) Negative Urine Ketones 1+ H Urine Occult Blood 2+ H Urine Nitrate Negative Urine Bilirubin Negative Urine Urobilinogen 0.2 Ur Leukocyte Esterase Negative Urine RBC 5-10/hpf H Urine WBC 0-1/hpf Ur Squamous Epith Cells 0-1 /hpf Urine Bacteria None seen Ur Culture Indicated? Cult not indicated 11/25/21 11/25/21 12:50 12:50 WBC 9.8 RBC 3.05 L Hgb 8.3 L Hct 25.4 L MCV 83.2 MCH 27.2 MCHC 32.7 RDW 15.6 H Plt Count 147 L Neut % (Auto) 77.9 H Lymph % (Auto) 13.1 L [place] % (Auto) 5.5 Eos % (Auto) 3.2 Baso % (Auto) 0.3 Neut # (Auto) 7600 H Lymph # (Auto) 1300 [place] # (Auto) 500 Eos # (Auto) 300 Baso # (Auto) 0 Sodium 130 L Potassium 4.9 Chloride 96 L Carbon Dioxide 32 BUN 21 H Creatinine 0.58 Estimated GFR > 60 BUN/Creatinine Ratio 36.2 H Glucose 171 H Calcium 8.2 L Magnesium Total Bilirubin AST ALT Alkaline Phosphatase Total Creatine Kinase 24 L CK-MB (CK-2) TNP CK-MB (CK-2) Rel Index TNP Troponin I 0.127 H* Total Protein Albumin Globulin Albumin/Globulin Ratio Urine Color Urine Appearance Urine pH Ur Specific [place] Urine Protein Urine Glucose (UA) Urine Ketones Urine Occult Blood Urine Nitrate Urine Bilirubin Urine Urobilinogen Ur Leukocyte Esterase Urine RBC Urine WBC Ur Squamous Epith Cells Urine Bacteria Ur Culture Indicated? 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) GERD (gastroesophageal reflux disease) Heart murmur History of aortic valve replacement with bioprosthetic valve (10/23/10) Hyperlipidemia Hypertension Hypothyroidism Macular degeneration Malignant neoplasm of lung Mitral valve disorder Neuropathy Nocturnal hypoxia Non Hodgkin's lymphoma Osteoarthritis (07/23/10) Osteoporosis (~2015) Peripheral neuropathy Pulmonary embolism Raynaud's disease (05/17/12) 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) Surgical History H/O total hysterectomy History of appendectomy History of cataract removal with insertion of prosthetic lens (2008) History of cholecystectomy History of lumpectomy of left breast History of lung surgery (1994) History of removal of Port-a-Cath (07/04/17) History of surgery Hx of aortic valve replacement (06/22/13) Hx of fusion of cervical spine (~03/2004) Hx of fusion of cervical spine (02/2006) Hx of hysterectomy (~04/1987) Status post cholecystectomy (08/22/09) Family History Mother Cancer Colon cancer Heart disease Father Lung cancer Brother Lung cancer Sister CVA (cerebral vascular accident) Heart disease Daughter Myocardial infarction Social History marital status: unknown household members: none Smoking Status: Former smoker Tobacco: How many years used: 50 second hand exposure: Yes alcohol intake: current substance use type: does not use Assessment & Plan Assessment & Plan narrative: 1. R ankle fractures, acute, present on admission, pathologic secondary to osteoporosis. Only postoperative with open reduction internal fixation. ?Orthopedic surgery Dr. Verdugo following ?Patient has a number of underlying chronic and possibly acute medical co-morbidities. She has poor waveform on pulse oximetry and oxygenation has been difficult to monitor, on 4L NC and appears comfortable. high risk TTE performed to further assess valve. Ejection fraction 70-75%. Grade I diastolic dysfunction. Bioprosthetic valve is well seated. 2. acute on chronic hypoxemic respiratory failure ?Troponnin negative x3 prior to surgery. Post incident of drop in heart rate troponin in the OR recovery was 0.127, will repeat in 3 hours. Likely secondary to the demand ischemia with drop in heart rate. However need to assess trend. ?Suspect COPD exacerbation, continue prednisone. ? XR chest without infiltrates. 3. COPD / emphysema with probable exacerbation ?Continue steroids as noted above. ?Albuterol prn with duoneb. consider additional pulmicort. 4. history of AVR with elevated gradients, history of CAD, history of CVA ?Per prior cardiology notes (most recent I have is from 2 years ago) they considered stress testing and apparently have recommended valve replacement again which the patient did not wish to pursue. Last EF was 70% that I have records for (2 years ago). Is currently stable with echo showing during this hospitalization ejection fraction of 70-75%. Continue ASA, statin ?30 seconds approx. of a supraventricular tachycardia noted on telemetry, rate 160s, appeared regular, unable to capture on formal EKG. This in conjunction with the drop in heart rate during the surgery and postoperatively requires telemetry monitoring while in the hospital to further assess. 5. R lung squamous cell carcinoma, non-hodkins lymphoma ?S/p chemo and radiation, was apparently not a surgical candidate for resection per outpatient notes due to lung disease. 6. chronic iron deficiency anemia Appears stable 7. history of CVA ?Continue home asa, statin changed to formulary alternative. 8. history of GI bleeding ?Continue home PPI BID 9. ground level fall ?She has chronic dizziness when standing, documented with cardiology as long as a few years ago, symptoms are not uncommon for her. With the occurrences of drop in blood heart rate in the OR as well as recovery, the patient is being monitored in ICU to document any temporary and paroxysmal EKG changes. 10 Advanced care planning ?She would want to be resuscitated if she could recover, but does not wish to be kept alive with the help of machines. Surrogate decision maker as noted below. ?Patient would be agreeable to short term SNF prior to returning home. She does not want to live in a fdc. She would be agreeable to caretakers or nurses coming to help her at home. Code: Full as discussed with the patient, surrogate is her daughter. DVT: hold prior to possible surgery Dispo: Admitted as inpatient hello needing further workup for paroxysmal bradycardia. Time Spent With Patient Critical Care time: I spent a total of [35] minutes of critical care time on this patient's care today; this time is exclusive of procedural time. Quality VTE Deep Vein Thrombosis/Pulmonary Embolism Present on Admission: No
--- NOTE | 2021-11-25 16:17 | PT-IP ANOTE ---
Physical therapy order received and chart reviewed. She underwent ankle surgery today. Per chart she developed bradycardia in post-op and transferred to ICU. Will hold evaluation until tomorrow when pt more medically stable.
[2021-11-25 16:30] LABS: Troponin I 0.121 ng/mL (0.01-0.034)
[2021-11-25] MEDS: CEFAZOLIN VIAL 1 GM in SODIUM CHLORIDE 0.9% 100 ML IV (18:39)
--- NOTE | 2021-11-25 19:43 | PM.CN.EICU ---
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: Yes Patient Location: ICU Provider location (State): [place] Other participants/roles: [facility] Medical History Acute CVA (cerebrovascular accident) (2017) Anaphylactic reaction (07/31/08) Aortic stenosis Arthritis Chest pain Chronic obstructive pulmonary disease Constipation Coronary artery disease Current smoker (05/17/12) Depression Dermatitis Difficulty swallowing Diverticulosis 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) GERD (gastroesophageal reflux disease) Heart murmur History of aortic valve replacement with bioprosthetic valve (10/23/10) Hyperlipidemia Hypertension Hypothyroidism Macular degeneration Malignant neoplasm of lung Mitral valve disorder Neuropathy Nocturnal hypoxia Non Hodgkin's lymphoma Osteoarthritis (07/23/10) Osteoporosis (~2015) Peripheral neuropathy Pulmonary embolism Raynaud's disease (05/17/12) 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) Surgical History H/O total hysterectomy History of appendectomy History of cataract removal with insertion of prosthetic lens (2008) History of cholecystectomy History of lumpectomy of left breast History of lung surgery (1994) History of removal of Port-a-Cath (07/04/17) History of surgery Hx of aortic valve replacement (06/22/13) Hx of fusion of cervical spine (~03/2004) Hx of fusion of cervical spine (02/2006) Hx of hysterectomy (~04/1987) Status post cholecystectomy (08/22/09) Family History Mother Cancer Colon cancer Heart disease Father Lung cancer Brother Lung cancer Sister CVA (cerebral vascular accident) Heart disease Daughter Myocardial infarction Social History marital status: unknown household members: none Smoking Status: Former smoker Tobacco: How many years used: 50 second hand exposure: Yes alcohol intake: current substance use type: does not use Current Medications Current Medications Medications: Home Medications multivitamin (Multiple Vitamins tablet) 1 tab PO DAILY ##0 01/01/17 [History Confirmed 11/23/21] melatonin 10 mg tablet 10 mg PO BEDTIME 10/29/17 [History Confirmed 11/23/21] polyethylene glycol 3350 17 gram/dose oral powder 17 gm PO DAILY 10/29/17 [History Confirmed 11/23/21] vit C 250 mg-vit E 90 mg-zinc 40 mg-copper 1 [id number] capsule (PreserVision AREDS-2) 1 tab PO BID ##0 10/29/17 [History Confirmed 11/23/21] Disabled Parking Placard #1 ea 05/04/18 [Rx Confirmed 11/23/21] cyclosporine 0.05 % eye drops in a dropperette (Restasis) 1 drop EYE-BOTH BID 05/04/18 [History Confirmed 11/23/21] aspirin 81 mg tablet,delayed release 81 mg PO DAILY 01/20/19 [History Confirmed 11/23/21] cholecalciferol (vitamin D3) 50 mcg (2,000 unit) capsule (Vitamin D3) 2,000 unit PO DAILY 01/20/19 [History Confirmed 11/23/21] vitamin B complex 1 cap PO DAILY 04/16/20 [History Confirmed 11/23/21] sodium,potassium,mag sulfates 17.5 gram-3.13 gram-1.6 gram oral soln 177 ml PO DAILY 2 doses #354 mL 04/18/20 [Rx Confirmed 11/23/21] rosuvastatin 20 mg tablet See Rx Instructions .Route .COMPLEX #90 tabs 04/10/21 [Rx Confirmed 11/23/21] acetaminophen 325 mg capsule (Tylenol) 650 mg PO QID PRN pain #60 caps 08/05/21 [Rx Confirmed 11/23/21] mirtazapine 15 mg tablet 15 mg PO BEDTIME #90 tabs 10/08/21 [Rx Confirmed 11/23/21] gabapentin 400 mg capsule 400 mg PO BID #180 caps 10/28/21 [Rx Confirmed 11/23/21] levothyroxine 50 mcg tablet 50 mcg PO DAILY #90 tabs 10/28/21 [Rx Confirmed 11/23/21] omeprazole 40 mg capsule,delayed release 40 mg PO BID #180 caps 10/28/21 [Rx Confirmed 11/23/21] amitriptyline 50 mg tablet 50 mg PO BEDTIME #90 tabs 11/05/21 [Rx Confirmed 11/23/21] gabapentin 800 mg tablet 800 mg PO BEDTIME #90 tabs 11/19/21 [Rx Confirmed 11/23/21] magnesium citrate 150 ml PO DAILY PRN constipation #296 mL 11/19/21 [Rx Confirmed 11/23/21] Visit Medications (administered) Generic Name Dose Route Start Last Admin Trade Name Freq PRN Reason Stop Dose Admin Acetaminophen 975 mg 11/23/21 14:09 11/24/21 05:07 Acetaminophen 325 Mg Tablet PO 975 mg Q8H PRN Administration Pain, Mild (1-3) Albuterol 2.5 mg 11/25/21 11:49 11/25/21 12:44 Albuterol 2.5 Mg/3 Ml Neb (Adult) INH 2.5 mg NOW PRN Administration Coughing, Wheezing, Dyspnea Albuterol/Ipratropium 3 ml 11/23/21 19:00 11/25/21 14:57 Albuterol/Ipratropium 3 Ml Ampul INH 3 ml [id number] CHRISTINE Administration Amitriptyline HCl 50 mg 11/23/21 21:00 11/24/21 20:23 Amitriptyline 25 Mg Tablet PO 50 mg BEDTIME CHRISTINE Administration Aspirin 81 mg 11/24/21 09:00 11/25/21 08:41 Aspirin Ec 81 Mg Tablet PO Not Given DAILY CHRISTINE Atorvastatin Calcium 40 mg 11/23/21 21:00 11/24/21 20:22 Atorvastatin 20 Mg Tablet PO 40 mg BEDTIME CHRISTINE Administration Diphenhydramine HCl 25 mg 11/23/21 23:51 11/25/21 05:26 Diphenhydramine 50 Mg/Ml Vial IV 25 mg Q4HR PRN Administration Itching Docusate Sodium 100 mg 11/23/21 21:00 11/25/21 08:41 Docusate 100 Mg Capsule PO Not Given BID CHRISTINE Gabapentin 800 mg 11/23/21 21:00 11/24/21 20:22 Gabapentin 400 Mg Capsule PO 800 mg BEDTIME CHRISTINE Administration Gabapentin 400 mg 11/25/21 09:00 11/25/21 14:31 Gabapentin 400 Mg Capsule PO Not Given 0900,1500 CHRISTINE Hydromorphone HCl 0.5 mg 11/24/21 19:58 11/25/21 09:06 Hydromorphone 0.5 Mg Inj IV 0.5 mg Q3H PRN Administration Pain, Moderate (4-6) Cefazolin Sodium 1 gm/ Sodium 100 mls @ 200 mls/hr 11/25/21 19:00 11/25/21 18:39 Chloride IV 11/26/21 03:29 200 mls/hr Q8H CHRISTINE Administration Lactated Ringer's 1,000 mls @ 42 mls/hr 11/25/21 13:28 11/25/21 13:45 Lactated Ringers IV 42 mls/hr CONT CHRISTINE Administration Levothyroxine Sodium 50 mcg 11/24/21 09:00 11/25/21 08:41 Levothyroxine 50 Mcg Tablet PO Not Given DAILY CHRISTINE Metoprolol Succinate 25 mg 11/24/21 14:00 11/25/21 08:42 Metoprolol Er 25 Mg Tablet PO Not Given BID CHRISTINE Mirtazapine 15 mg 11/23/21 21:00 11/24/21 20:22 Mirtazapine 15 Mg Tablet PO 15 mg BEDTIME CHRISTINE Administration Pantoprazole Sodium 40 mg 11/23/21 21:00 11/25/21 06:[address] 40 Mg Tablet PO 40 mg 0700,2100 CHRISTINE Administration Exam Vital Signs (past 8 hours): - 11/25/21 12:28 11/25/21 12:45 11/25/21 12:30 Temperature 96.6 F L Pulse Rate 97 H 110 H 84 Respiratory Rate 15 16 14 Blood Pressure 70/32 L 96/28 L 56/31 L Pulse Oximetry 85 L 92 86 L Oxygen Delivery Method Nasal Cannula Nasal Cannula Nasal Cannula Oxygen Flow Rate 4 4 4 11/25/21 12:35 11/25/21 12:40 11/25/21 13:28 Temperature 97.5 F L Pulse Rate 44 L 48 L 99 H Respiratory Rate 12 15 14 Blood Pressure 63/29 L 58/25 L 98/57 L Pulse Oximetry 89 L 90 L 91 Oxygen Delivery Method Nasal Cannula Room Air Oxygen Flow Rate 4 4 11/25/21 12:50 11/25/21 13:00 11/25/21 13:10 Temperature 96.6 F L Pulse Rate 108 H 108 H 103 H Respiratory Rate 16 16 17 Blood Pressure 96/56 L 108/60 100/58 L Pulse Oximetry 92 93 96 Oxygen Delivery Method Nasal Cannula Nasal Cannula Nasal Cannula Oxygen Flow Rate 4 4 4 11/25/21 13:30 11/25/21 13:31 11/25/21 13:31 Temperature Pulse Rate 100 H 100 H Respiratory Rate 17 23 Blood Pressure 107/52 L 116/59 L Pulse Oximetry 92 88 L Oxygen Delivery Method Oxygen Flow Rate 11/25/21 13:45 11/25/21 13:45 11/25/21 14:00 Temperature Pulse Rate 100 H Respiratory Rate 20 Blood Pressure 107/52 L 111/59 L Pulse Oximetry 92 Oxygen Delivery Method Oxygen Flow Rate 11/25/21 14:00 11/25/21 14:15 11/25/21 14:15 Temperature Pulse Rate 100 H 97 H Respiratory Rate 18 24 Blood Pressure 108/58 L 108/58 L Pulse Oximetry 92 87 L Oxygen Delivery Method Oxygen Flow Rate 11/25/21 15:05 11/25/21 14:30 11/25/21 14:30 Temperature Pulse Rate 101 H 99 H Respiratory Rate 20 20 Blood Pressure 119/58 L Pulse Oximetry 92 94 Oxygen Delivery Method Nasal Cannula Oxygen Flow Rate 4 11/25/21 14:45 11/25/21 14:45 11/25/21 15:00 Temperature Pulse Rate 101 H 101 H Respiratory Rate 18 25 H Blood Pressure 130/60 Pulse Oximetry 92 93 Oxygen Delivery Method Oxygen Flow Rate 11/25/21 15:01 11/25/21 15:01 11/25/21 15:46 Temperature 99.1 F Pulse Rate 101 H 101 H Respiratory Rate 25 H 24 Blood Pressure 119/70 106/67 Pulse Oximetry 88 L 95 Oxygen Delivery Method Oxygen Flow Rate 11/25/21 15:30 11/25/21 15:30 11/25/21 15:38 Temperature Pulse Rate 101 H 101 H Respiratory Rate 25 H 26 H Blood Pressure 107/60 Pulse Oximetry 93 90 L Oxygen Delivery Method Oxygen Flow Rate 11/25/21 15:38 11/25/21 16:33 11/25/21 13:30 Temperature 98.0 F Pulse Rate 103 H Respiratory Rate 21 Blood Pressure 106/67 114/67 Pulse Oximetry 93 Oxygen Delivery Method Nasal Cannula Oxygen Flow Rate 11/25/21 16:00 11/25/21 16:00 11/25/21 16:30 Temperature Pulse Rate 102 H Respiratory Rate 30 H Blood Pressure 113/66 114/67 Pulse Oximetry 93 Oxygen Delivery Method Oxygen Flow Rate 11/25/21 16:30 11/25/21 17:00 11/25/21 17:00 Temperature Pulse Rate 102 H 103 H Respiratory Rate 22 20 Blood Pressure 117/61 Pulse Oximetry 92 93 Oxygen Delivery Method Oxygen Flow Rate 11/25/21 17:30 Temperature Pulse Rate 104 H Respiratory Rate 23 Blood Pressure Pulse Oximetry 92 Oxygen Delivery Method Oxygen Flow Rate Fraction of Inspired Oxygen 35 SaO2/FiO2 Ratio 271 Oxygen Delivery Method Nasal Cannula Oxygen Flow Rate 4 Objective Labs Result Diagrams: 11/25/21 12:50 11/25/21 12:50 Labs: Laboratory Results - last 24 hr 11/25/21 11/25/21 11/25/21 05:07 05:07 12:50 WBC 7.7 9.8 RBC 3.26 L 3.05 L Hgb 8.9 L 8.3 L Hct 27.0 L 25.4 L MCV 82.6 83.2 MCH 27.4 27.2 MCHC 33.1 32.7 RDW 15.6 H 15.6 H Plt Count 157 147 L Neut % (Auto) 76.9 H 77.9 H Lymph % (Auto) 11.7 L 13.1 L [place] % (Auto) 7.0 5.5 Eos % (Auto) 4.1 H 3.2 Baso % (Auto) 0.3 0.3 Neut # (Auto) 5900 7600 H Lymph # (Auto) 900 L 1300 [place] # (Auto) 500 500 Eos # (Auto) 300 300 Baso # (Auto) 0 0 Sodium 132 L Potassium 4.4 Chloride 94 L Carbon Dioxide 35 H BUN 20 H Creatinine 0.61 Estimated GFR > 60 BUN/Creatinine Ratio 32.8 H Glucose 115 H Calcium 8.4 Magnesium 2.0 Total Bilirubin 0.2 AST 20 ALT 13 Alkaline Phosphatase 70 Total Creatine Kinase CK-MB (CK-2) CK-MB (CK-2) Rel Index Troponin I Total Protein 5.7 L Albumin 3.1 L Globulin 2.6 Albumin/Globulin Ratio 1.2 11/25/21 11/25/21 12:50 15:50 WBC RBC Hgb Hct MCV MCH MCHC RDW Plt Count Neut % (Auto) Lymph % (Auto) [place] % (Auto) Eos % (Auto) Baso % (Auto) Neut # (Auto) Lymph # (Auto) [place] # (Auto) Eos # (Auto) Baso # (Auto) Sodium 130 L Potassium 4.9 Chloride 96 L Carbon Dioxide 32 BUN 21 H Creatinine 0.58 Estimated GFR > 60 BUN/Creatinine Ratio 36.2 H Glucose 171 H Calcium 8.2 L Magnesium Total Bilirubin AST ALT Alkaline Phosphatase Total Creatine Kinase 24 L CK-MB (CK-2) TNP CK-MB (CK-2) Rel Index TNP Troponin I 0.127 H* 0.121 H* Total Protein Albumin Globulin Albumin/Globulin Ratio Assessment & Plan Assessment & Plan narrative: patient seen with bedside vitaly, case discussed with Dr. Barton chart/labs/imaging reviewed 81 year old female admitted right ankle fracture intraop/post op bradycardia syncope currently afebrile, HD stable trop .12 ekg pending HgB 8.6 stable ECHO ef 70% rvsp 54 suggest -CT head -ve -check abg -neurochecks/seizure precatuions -minimize opiod use -serial ekg/trop -echo ef 70% -dc amitriptiline/neurontin/mitrazapine -hold beta susy -keep on monitor for now -suggest cardio/ep eval -check venous duplex, r/o DVT -consider CTA to rule out pe -nebs/steroids -monitor ins/outs -replace lytes prn -keep glucose 140-180s -gi/dvt ppx -please call eICU if condition changes Time Spent With Patient Critical Care time: I spent a total of [55] minutes of critical care time on this patient's care today; this time is exclusive of procedural time.
[2021-11-25 19:53] LABS: Add Manual Diff / Slide Review NO; Basophils Absolute Auto 0 /uL (0-100); Basophils Percent Auto 0.1 % (0-2); Eosinophils Absolute Auto 0 /uL (0-450); Hematocrit 25.7 % (36-46); Hemoglobin 8.6 g/dL (12.0-16.0); Lymphocytes Absolute Auto 300 /uL (1100-4500); Lymphocytes Percent Auto 3.9 % (25-40); Mean Corpuscular HGB Conc 33.5 % (30-36); Mean Corpuscular Hemoglobin 27.7 PG (26-34); Mean Corpuscular Volume 82.5 fL (80-100); Monocytes Absolute Auto 400 /uL (0-900); Monocytes Percent Auto 4.4 % (3-14); Neutrophils Absolute Auto 7600 /uL (1500-7000); Neutrophils Percent Auto 91.6 % (50-75); Platelet Count 145 X10^3/uL (150-400); Red Blood Cell Count 3.12 X10^6/uL (4.0-5.2); Red Cell Distribution Width 15.5 % (11.6-14.8); White Blood Cell Count 8.4 X10^3/uL (4.5-11.0)
[2021-11-25] MEDS: DOCUSATE 100 MG CAPSULE PO (20:21)
[2021-11-25] MEDS: ATORVASTATIN 20 MG TABLET 40 MG PO (20:21)
[2021-11-25] MEDS: METOPROLOL ER 25 MG TABLET PO (20:22)
[2021-11-25] MEDS: ACETAMINOPHEN 325 MG TABLET 975 MG PO (20:29)
[2021-11-25 20:34] LABS: Troponin I 0.125 ng/mL (0.01-0.034)
[2021-11-25 20:46] LABS: D Dimer 4567 ng/ml (<500)
[2021-11-25 20:53] LABS: BUN Creatinine Ratio 38.2 (6-22); Blood Urea Nitrogen 21 mg/dL (7-17); Calcium 8.7 mg/dL (8.4-10.2); Carbon Dioxide 33 mmol/L (22-32); Chloride 95 mmol/L (98-107); Estimated Glomerular Filt Rate > 60 mL/min (>60); Glucose 169 mg/dL (80-110); HEMOLYSIS < 15 (0-50); Magnesium 1.9 mg/dL (1.6-2.3); Potassium 4.8 mmol/L (3.4-5.1); Sodium 132 mmol/L (137-145)
[2021-11-25 20:59] LABS: Creatine Kinase 28 U/L (30-135)
--- NOTE | 2021-11-25 21:35 | DI.US.S_ITS ---
PROCEDURE: US PERIPH VENOUS LOW EXTREM BI INDICATIONS: ELEVATED D-DIMER, RECENT ANKLE SURGERY TECHNIQUE: Real-time imaging, as well as color and pulse Doppler interrogation, were performed of the deep veins of both legs from the inguinal ligament to the popliteal fossa. COMPARISON: None. FINDINGS: Right: The common femoral, femoral and popliteal veins are normally compressible, and free of intraluminal thrombus. Color and pulse Doppler demonstrate normal phasic intravascular flow. There is normal augmentation response to distal compression maneuver. Left: The common femoral, femoral and popliteal veins are normally compressible, and free of intraluminal thrombus. Color and pulse Doppler demonstrate normal phasic intravascular flow. There is normal augmentation response to distal compression maneuver. IMPRESSION: 1. No evidence of deep venous thrombosis in the right or left lower extremity. Dictated by: Daniel Mendoza M.D. on 11/25/2021 at 23:34 Approved by: Daniel Mendoza M.D. on 11/25/2021 at 23:35
[2021-11-26] VITALS (41 sets, daily range): BP systolic 89–159; BP diastolic 50–77; PULSE 79–96; RESP 14–37; TEMP 36.6–37.7; O2SAT 82–100; BMI 23.8
[2021-11-26 02:16] LABS: Add Manual Diff / Slide Review NO; Basophils Absolute Auto 0 /uL (0-100); Basophils Percent Auto 0.1 % (0-2); Eosinophils Absolute Auto 0 /uL (0-450); Eosinophils Percent Auto 0.1 % (2-4); Hematocrit 24.4 % (36-46); Hemoglobin 8.1 g/dL (12.0-16.0); Lymphocytes Absolute Auto 800 /uL (1100-4500); Lymphocytes Percent Auto 10.7 % (25-40); Mean Corpuscular HGB Conc 33.2 % (30-36); Mean Corpuscular Hemoglobin 27.4 PG (26-34); Mean Corpuscular Volume 82.6 fL (80-100); Monocytes Absolute Auto 600 /uL (0-900); Monocytes Percent Auto 8.3 % (3-14); Neutrophils Absolute Auto 6100 /uL (1500-7000); Neutrophils Percent Auto 80.8 % (50-75); Platelet Count 146 X10^3/uL (150-400); Red Blood Cell Count 2.96 X10^6/uL (4.0-5.2); Red Cell Distribution Width 15.3 % (11.6-14.8); White Blood Cell Count 7.5 X10^3/uL (4.5-11.0)
[2021-11-26] MEDS: OXYCODONE IR 10 MG TABLET 5 MG PO (02:26)
[2021-11-26] MEDS: CEFAZOLIN VIAL 1 GM in SODIUM CHLORIDE 0.9% 100 ML IV (02:28)
[2021-11-26] MEDS: diphenhydrAMINE 50 MG/ML VIAL 25 MG IV ×2 (02:29→18:52)
[2021-11-26 02:31] LABS: Alanine Aminotransferase 14 IU/L (<35); Albumin 3.2 g/dL (3.5-5.0); Albumin Globulin Ratio 1.3 (1.0-2.8); Alkaline Phosphatase 64 U/L (38-126); Aspartate Aminotransferase 19 IU/L (14-36); BUN Creatinine Ratio 35.2 (6-22); Bilirubin Total 0.2 mg/dL (0.2-1.3); Blood Urea Nitrogen 19 mg/dL (7-17); Calcium 8.6 mg/dL (8.4-10.2); Carbon Dioxide 36 mmol/L (22-32); Chloride 93 mmol/L (98-107); Estimated Glomerular Filt Rate > 60 mL/min (>60); Globulin 2.5 g/dL (1.7-4.1); Glucose 135 mg/dL (80-110); HEMOLYSIS < 15 (0-50); Potassium 4.6 mmol/L (3.4-5.1); Sodium 133 mmol/L (137-145); Total Protein 5.7 g/dL (6.3-8.2)
[2021-11-26] MEDS: HYDROMORPHONE 0.5 MG INJ IV (03:39)
[2021-11-26] MEDS: CALCIUM CARBONATE 500 MG TAB PO (03:39)
[2021-11-26] MEDS: ACETAMINOPHEN 325 MG TABLET 975 MG PO ×2 (05:26→18:52)
--- NOTE | 2021-11-26 06:30 | PC.NURSE ---
End of Shift note. Care of patient from [id number]. Patient AAOX3, forgetful, restless through out the night. RLE surgical Pain relieved with PO Tylenol 950mg X2, Oxycodone 5mg X1 and dilaudid 0.5mg IV X one for break through pain. Patient needs assist with boosting up in bed and turning side to side. RLE CMS intact, warm, trace edema. RLE secured in walking boot. Has been on 2L O2 Sats 94-98%, SR 87 with peaked T wave.
--- NOTE | 2021-11-26 07:58 | DIET.CONS ---
Dietary Consultation Note Admission Date: 11/23/2021 13:33 Assessment: 81y F with advanced COPD, right lung squamous cell carcinoma, severe iron deficiency anemia, non-Hodgkin's lymphoma and failing heart valve admitted for ankle fracture requiring surgery referred to nutrition for reported 20# weight loss. Chart review shows pt has lost 15# in 1y (10.5%, non-severe) with BMI 22.5 (borderline low for age). Pt has experienced significant constipation from oral iron supplementation for her iron deficiency anemia so switched to cyclic prn infusions of venofer in oncology with less constipation reported. Since surgery pt has averaged 75% consumption of her meal trays. Ht: 160.02 cm Wt: 58.06 kg BMI: 22.6 UBW: 64kg Last BM: 11/16/21 (11/25/21 16:22) MNA: 5 Devin Score: 17 Diet: 11/25/21 Dinner General (Regular) Diet Diet Modifications: Nutrition Percent Meal Consumed 75% 11/25/21 18:26 Percent Meal Consumed 75% 11/25/21 17:57 Percent Meal Consumed 25% 11/24/21 18:36 Labs: RBC 2.96 X10^6/uL (4.0-5.2) L 11/26/21 02:04 Hgb 8.1 g/dL (12.0-16.0) L 11/26/21 02:04 Hct 24.4 % (36-46) L 11/26/21 02:04 Creatinine 0.54 mg/dL (0.52-1.04) 11/26/21 02:04 Nutrition Diagnosis: increased protein needs r/t post-surgical healing aeb pt s/p d1 ankle fixation for ankle fracture, pt with non-severe weight loss over past 1y, pt high risk malnutrition r/t advanced age. Interventions: 1. Sending ONS Ensure Enlive once daily as snack to support protein, kcal and micronutrient needs for healing. EER: 1,700kcals (30kcal/kg elder), 70-80g PRO (1.1-1.3g/kg per post surgical) Monitoring/Evaluations: ONS tolerance, POs. Electronically Signed by: Khalida Garcia 11/26/21 07:58 Clinical Dietitian [address] [id number]
--- NOTE | 2021-11-26 08:13 | P.PN_ITS ---
Subjective Subjective Date Patient Seen: 11/26/21 Time Patient Seen: 08:14 Interval history: Patient is complaining of [id number] right ankle pain this morning. She did not get up yesterday with physical therapy due to her postoperative bradycardia. She denies any dizziness or lightheadedness currently. She has been getting IV Dilaudid, Tylenol, oxycodone for pain. Exam Vital Signs (past 8 hours): - 11/26/21 01:00 11/26/21 01:00 11/26/21 02:00 Temperature Pulse Rate 92 H 90 Respiratory Rate 18 23 Blood Pressure 144/69 H Pulse Oximetry 100 97 Oxygen Delivery Method 11/26/21 02:28 11/26/21 02:28 11/26/21 03:00 Temperature Pulse Rate 91 H Respiratory Rate 23 Blood Pressure 110/58 L 140/65 Pulse Oximetry 97 Oxygen Delivery Method 11/26/21 03:00 11/26/21 03:11 11/26/21 04:00 Temperature Pulse Rate 87 Respiratory Rate 21 Blood Pressure 147/77 H Pulse Oximetry 98 Oxygen Delivery Method Nasal Cannula 11/26/21 04:00 11/26/21 05:00 11/26/21 05:00 Temperature 98.1 F Pulse Rate 88 Respiratory Rate 17 Blood Pressure 159/77 H Pulse Oximetry 100 Oxygen Delivery Method 11/26/21 05:00 11/26/21 05:59 11/26/21 06:00 Temperature Pulse Rate 92 H 86 Respiratory Rate 14 15 Blood Pressure 133/63 Pulse Oximetry 98 100 Oxygen Delivery Method 11/26/21 06:01 11/26/21 07:00 11/26/21 07:00 Temperature Pulse Rate 87 85 Respiratory Rate 17 16 Blood Pressure 115/56 L Pulse Oximetry 100 100 Oxygen Delivery Method Fraction of Inspired Oxygen 35 SaO2/FiO2 Ratio 271 Oxygen Delivery Method Nasal Cannula Oxygen Flow Rate 3 Narrative Exam Narrative: Pleasant 81-year-old female, resting comfortably in bed. Answers most questions appropriately, but sometimes gets confused, reorient quickly. Right lower extremity boot is in place. Bilateral lower extremities: She is able to wiggle her toes bilaterally, sensation is grossly intact to light touch, calves are soft and nontender to palpation. Objective Labs Result Diagrams: 11/26/21 02:04 11/26/21 02:04 Labs: Laboratory Results - last 24 hr 11/25/21 11/25/21 11/25/21 12:50 12:50 15:50 WBC 9.8 RBC 3.05 L Hgb 8.3 L Hct 25.4 L MCV 83.2 MCH 27.2 MCHC 32.7 RDW 15.6 H Plt Count 147 L Neut % (Auto) 77.9 H Lymph % (Auto) 13.1 L [place] % (Auto) 5.5 Eos % (Auto) 3.2 Baso % (Auto) 0.3 Neut # (Auto) 7600 H Lymph # (Auto) 1300 [place] # (Auto) 500 Eos # (Auto) 300 Baso # (Auto) 0 D-Dimer Sodium 130 L Potassium 4.9 Chloride 96 L Carbon Dioxide 32 BUN 21 H Creatinine 0.58 Estimated GFR > 60 BUN/Creatinine Ratio 36.2 H Glucose 171 H Calcium 8.2 L Magnesium Total Bilirubin AST ALT Alkaline Phosphatase Total Creatine Kinase 24 L CK-MB (CK-2) TNP CK-MB (CK-2) Rel Index TNP Troponin I 0.127 H* 0.121 H* Total Protein Albumin Globulin Albumin/Globulin Ratio 11/25/21 11/25/21 11/25/21 19:40 19:40 19:47 WBC 8.4 RBC 3.12 L Hgb 8.6 L Hct 25.7 L MCV 82.5 MCH 27.7 MCHC 33.5 RDW 15.5 H Plt Count 145 L Neut % (Auto) 91.6 H Lymph % (Auto) 3.9 L [place] % (Auto) 4.4 Eos % (Auto) 0.0 L Baso % (Auto) 0.1 Neut # (Auto) 7600 H Lymph # (Auto) 300 L [place] # (Auto) 400 Eos # (Auto) 0 Baso # (Auto) 0 D-Dimer Sodium 132 L Potassium 4.8 Chloride 95 L Carbon Dioxide 33 H BUN 21 H Creatinine 0.55 Estimated GFR > 60 BUN/Creatinine Ratio 38.2 H Glucose 169 H Calcium 8.7 Magnesium 1.9 Total Bilirubin AST ALT Alkaline Phosphatase Total Creatine Kinase 28 L CK-MB (CK-2) TNP CK-MB (CK-2) Rel Index TNP Troponin I 0.125 H* Total Protein Albumin Globulin Albumin/Globulin Ratio 11/25/21 11/26/21 11/26/21 20:15 02:04 02:04 WBC 7.5 RBC 2.96 L Hgb 8.1 L Hct 24.4 L MCV 82.6 MCH 27.4 MCHC 33.2 RDW 15.3 H Plt Count 146 L Neut % (Auto) 80.8 H Lymph % (Auto) 10.7 L [place] % (Auto) 8.3 Eos % (Auto) 0.1 L Baso % (Auto) 0.1 Neut # (Auto) 6100 Lymph # (Auto) 800 L [place] # (Auto) 600 Eos # (Auto) 0 Baso # (Auto) 0 D-Dimer 4567 H Sodium 133 L Potassium 4.6 Chloride 93 L Carbon Dioxide 36 H BUN 19 H Creatinine 0.54 Estimated GFR > 60 BUN/Creatinine Ratio 35.2 H Glucose 135 H Calcium 8.6 Magnesium 2.0 Total Bilirubin 0.2 AST 19 ALT 14 Alkaline Phosphatase 64 Total Creatine Kinase CK-MB (CK-2) CK-MB (CK-2) Rel Index Troponin I Total Protein 5.7 L Albumin 3.2 L Globulin 2.5 Albumin/Globulin Ratio 1.3 11/26/21 02:04 WBC RBC Hgb Hct MCV MCH MCHC RDW Plt Count Neut % (Auto) Lymph % (Auto) [place] % (Auto) Eos % (Auto) Baso % (Auto) Neut # (Auto) Lymph # (Auto) [place] # (Auto) Eos # (Auto) Baso # (Auto) D-Dimer Sodium Potassium Chloride Carbon Dioxide BUN Creatinine Estimated GFR BUN/Creatinine Ratio Glucose Calcium Magnesium Total Bilirubin AST ALT Alkaline Phosphatase Total Creatine Kinase CK-MB (CK-2) CK-MB (CK-2) Rel Index Troponin I 0.110 H Total Protein Albumin Globulin Albumin/Globulin Ratio [facility] Medical History Acute CVA (cerebrovascular accident) (2018) Anaphylactic reaction (07/31/08) Aortic stenosis Arthritis Chest pain Chronic obstructive pulmonary disease Constipation Coronary artery disease Current smoker (05/17/12) Depression Dermatitis Difficulty swallowing Diverticulosis 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) GERD (gastroesophageal reflux disease) Heart murmur History of aortic valve replacement with bioprosthetic valve (10/23/10) Hyperlipidemia Hypertension Hypothyroidism Macular degeneration Malignant neoplasm of lung Mitral valve disorder Neuropathy Nocturnal hypoxia Non Hodgkin's lymphoma Osteoarthritis (07/23/10) Osteoporosis (~2015) Peripheral neuropathy Pulmonary embolism Raynaud's disease (05/17/12) 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) Surgical History H/O total hysterectomy History of appendectomy History of cataract removal with insertion of prosthetic lens (2008) History of cholecystectomy History of lumpectomy of left breast History of lung surgery (1994) History of removal of Port-a-Cath (07/04/17) History of surgery Hx of aortic valve replacement (06/22/13) Hx of fusion of cervical spine (~03/2004) Hx of fusion of cervical spine (02/2006) Hx of hysterectomy (~04/1987) Status post cholecystectomy (08/22/09) Family History Mother Cancer Colon cancer Heart disease Father Lung cancer Brother Lung cancer Sister CVA (cerebral vascular accident) Heart disease Daughter Myocardial infarction Social History marital status: unknown household members: none Smoking Status: Former smoker Tobacco: How many years used: 50 second hand exposure: Yes alcohol intake: current substance use type: does not use Assessment & Plan Post-op Postoperative Procedures: Procedures Operation Date: 11/24/21 10:30 <No data on this case meets the specified criteria> Operation Date: 11/25/21 10:30 Actual Procedure Side Surgeon p ORIF Ankle Fracture Right Марина Verdugo MD Postoperative day: 1 Postoperative plan narrative: -mobilize with PT -weightbear as tolerated in boot with a walker. If boot uncomfortable may take it off in bed and exchange for a night splint but should wear either the boot or resting night splint to prevent Achilles contracture. -Elevate above the heart level as much as possible to help with swelling and incision healing. -Keep dressing clean dry and in place. Sutures will remain in place 2-4 weeks. Patient has a thin skin so these may in the place longer. -continue with multimodal pain management -disposition: Per hospitalist team. Patient is requesting home, but lives alone. SNF likely, depending on PT and hospitalist recommendation. -Recommend Lovenox 4 weeks for DVT prophylaxis due to increased risks with the a immobility, and cancer. Patient currently has Lovenox and aspirin ordered, possibly DC aspirin, per hospitalist's recommendation Quality VTE Deep Vein Thrombosis/Pulmonary Embolism Present on Admission: No
[2021-11-26 08:38] LABS: Troponin I 0.094 ng/mL (0.01-0.034)
[2021-11-26] MEDS: ALBUTEROL/IPRATROPIUM 3 ML AMPUL INH ×3 (08:45→20:09)
[2021-11-26] MEDS: ENOXAPARIN 40 MG/0.4 ML SYRINGE SUBCUT (08:50)
[2021-11-26] MEDS: DOCUSATE 100 MG CAPSULE PO ×2 (08:50→21:01)
[2021-11-26] MEDS: METOPROLOL ER 25 MG TABLET PO ×2 (08:50→21:51)
[2021-11-26] MEDS: PANTOPRAZOLE DR 40 MG TABLET PO ×2 (08:50→21:09)
[2021-11-26] MEDS: LEVOTHYROXINE 50 MCG TABLET PO (08:50)
[2021-11-26] MEDS: ASPIRIN EC 81 MG TABLET PO (08:50)
--- NOTE | 2021-11-26 09:23 | PM.PN.EICU ---
Subjective Subjective IF CAMERA ACTIVATED, patient seen via real-time interactive audiovisual communication: Camera activated Consent obtained for tele-childhood teacher care: Yes Patient Location: ICU Provider location (State): [place] Other participants/roles: RN Interval history: 81 year old female admitted to ICU postoperative bradycardia. No acute issues overnight. Supplemental O2 is down to 3 liters NC which is patient's baseline. Venous duplex negative for DVT. Patient is allergic to iodidne and unable to get a CTA PE study. Had difficulty falling asleep overnight. Remains in good spirit. Current Medications Current Medications Medications: Home Medications multivitamin (Multiple Vitamins tablet) 1 tab PO DAILY ##0 01/01/17 [History Confirmed 11/23/21] melatonin 10 mg tablet 10 mg PO BEDTIME 10/29/17 [History Confirmed 11/23/21] polyethylene glycol 3350 17 gram/dose oral powder 17 gm PO DAILY 10/29/17 [History Confirmed 11/23/21] vit C 250 mg-vit E 90 mg-zinc 40 mg-copper 1 [id number] capsule (PreserVision AREDS-2) 1 tab PO BID ##0 10/29/17 [History Confirmed 11/23/21] Disabled Parking Placard #1 ea 05/04/18 [Rx Confirmed 11/23/21] cyclosporine 0.05 % eye drops in a dropperette (Restasis) 1 drop EYE-BOTH BID 05/04/18 [History Confirmed 11/23/21] aspirin 81 mg tablet,delayed release 81 mg PO DAILY 01/20/19 [History Confirmed 11/23/21] cholecalciferol (vitamin D3) 50 mcg (2,000 unit) capsule (Vitamin D3) 2,000 unit PO DAILY 01/20/19 [History Confirmed 11/23/21] vitamin B complex 1 cap PO DAILY 04/16/20 [History Confirmed 11/23/21] sodium,potassium,mag sulfates 17.5 gram-3.13 gram-1.6 gram oral soln 177 ml PO DAILY 2 doses #354 mL 04/18/20 [Rx Confirmed 11/23/21] rosuvastatin 20 mg tablet See Rx Instructions .Route .COMPLEX #90 tabs 04/10/21 [Rx Confirmed 11/23/21] acetaminophen 325 mg capsule (Tylenol) 650 mg PO QID PRN pain #60 caps 08/05/21 [Rx Confirmed 11/23/21] mirtazapine 15 mg tablet 15 mg PO BEDTIME #90 tabs 10/08/21 [Rx Confirmed 11/23/21] gabapentin 400 mg capsule 400 mg PO BID #180 caps 10/28/21 [Rx Confirmed 11/23/21] levothyroxine 50 mcg tablet 50 mcg PO DAILY #90 tabs 10/28/21 [Rx Confirmed 11/23/21] omeprazole 40 mg capsule,delayed release 40 mg PO BID #180 caps 10/28/21 [Rx Confirmed 11/23/21] amitriptyline 50 mg tablet 50 mg PO BEDTIME #90 tabs 11/05/21 [Rx Confirmed 11/23/21] gabapentin 800 mg tablet 800 mg PO BEDTIME #90 tabs 11/19/21 [Rx Confirmed 11/23/21] magnesium citrate 150 ml PO DAILY PRN constipation #296 mL 11/19/21 [Rx Confirmed 11/23/21] Visit Medications (administered) Generic Name Dose Route Start Last Admin Trade Name Freq PRN Reason Stop Dose Admin Acetaminophen 975 mg 11/23/21 14:09 11/26/21 05:26 Acetaminophen 325 Mg Tablet PO 975 mg Q8H PRN Administration Pain, Mild (1-3) Albuterol 2.5 mg 11/25/21 11:49 11/25/21 12:44 Albuterol 2.5 Mg/3 Ml Neb (Adult) INH 2.5 mg NOW PRN Administration Coughing, Wheezing, Dyspnea Albuterol/Ipratropium 3 ml 11/23/21 19:00 11/26/21 08:45 Albuterol/Ipratropium 3 Ml Ampul INH 3 ml [id number] CHRISTINE Administration Aspirin 81 mg 11/24/21 09:00 11/26/21 08:50 Aspirin Ec 81 Mg Tablet PO 81 mg DAILY CHRISTINE Administration Atorvastatin Calcium 40 mg 11/23/21 21:00 11/25/21 20:21 Atorvastatin 20 Mg Tablet PO 40 mg BEDTIME CHRISTINE Administration Calcium Carbonate 500 mg 11/26/21 03:05 11/26/21 03:39 Calcium Carbonate 500 Mg Tab PO 500 mg Q4H PRN Administration Dyspepsia Diphenhydramine HCl 25 mg 11/23/21 23:51 11/26/21 02:29 Diphenhydramine 50 Mg/Ml Vial IV 25 mg Q4HR PRN Administration Itching Docusate Sodium 100 mg 11/23/21 21:00 11/26/21 08:50 Docusate 100 Mg Capsule PO 100 mg BID CHRISTINE Administration Enoxaparin Sodium 40 mg 11/26/21 09:00 11/26/21 08:50 Enoxaparin 40 Mg/0.4 Ml Syringe SUBCUT 40 mg DAILY CHRISTINE Administration Hydromorphone HCl 0.5 mg 11/24/21 19:58 11/26/21 03:39 Hydromorphone 0.5 Mg Inj IV 0.5 mg Q3H PRN Administration Pain, Moderate (4-6) Lactated Ringer's 1,000 mls @ 42 mls/hr 11/25/21 13:28 11/25/21 13:45 Lactated Ringers IV 42 mls/hr CONT CHRISTINE Administration Levothyroxine Sodium 50 mcg 11/24/21 09:00 11/26/21 08:50 Levothyroxine 50 Mcg Tablet PO 50 mcg DAILY CHRISTINE Administration Metoprolol Succinate 25 mg 11/24/21 14:00 11/26/21 08:50 Metoprolol Er 25 Mg Tablet PO 25 mg BID CHRISTINE Administration Oxycodone HCl 5 mg 11/25/21 13:28 11/26/21 02:26 Oxycodone Ir 10 Mg Tablet PO 5 mg Q3HR PRN Administration Pain, Moderate (4-6) Pantoprazole Sodium 40 mg 11/23/21 21:00 11/26/21 08:[address] 40 Mg Tablet PO 40 mg 0700,2100 CHRISTINE Administration Objective Labs Result Diagrams: 11/26/21 02:04 11/26/21 02:04 Labs: Laboratory Results - last 24 hr 11/25/21 11/25/21 11/25/21 12:50 12:50 15:50 WBC 9.8 RBC 3.05 L Hgb 8.3 L Hct 25.4 L MCV 83.2 MCH 27.2 MCHC 32.7 RDW 15.6 H Plt Count 147 L Neut % (Auto) 77.9 H Lymph % (Auto) 13.1 L [place] % (Auto) 5.5 Eos % (Auto) 3.2 Baso % (Auto) 0.3 Neut # (Auto) 7600 H Lymph # (Auto) 1300 [place] # (Auto) 500 Eos # (Auto) 300 Baso # (Auto) 0 D-Dimer Sodium 130 L Potassium 4.9 Chloride 96 L Carbon Dioxide 32 BUN 21 H Creatinine 0.58 Estimated GFR > 60 BUN/Creatinine Ratio 36.2 H Glucose 171 H Calcium 8.2 L Magnesium Total Bilirubin AST ALT Alkaline Phosphatase Total Creatine Kinase 24 L CK-MB (CK-2) TNP CK-MB (CK-2) Rel Index TNP Troponin I 0.127 H* 0.121 H* Total Protein Albumin Globulin Albumin/Globulin Ratio 11/25/21 11/25/21 11/25/21 19:40 19:40 19:47 WBC 8.4 RBC 3.12 L Hgb 8.6 L Hct 25.7 L MCV 82.5 MCH 27.7 MCHC 33.5 RDW 15.5 H Plt Count 145 L Neut % (Auto) 91.6 H Lymph % (Auto) 3.9 L [place] % (Auto) 4.4 Eos % (Auto) 0.0 L Baso % (Auto) 0.1 Neut # (Auto) 7600 H Lymph # (Auto) 300 L [place] # (Auto) 400 Eos # (Auto) 0 Baso # (Auto) 0 D-Dimer Sodium 132 L Potassium 4.8 Chloride 95 L Carbon Dioxide 33 H BUN 21 H Creatinine 0.55 Estimated GFR > 60 BUN/Creatinine Ratio 38.2 H Glucose 169 H Calcium 8.7 Magnesium 1.9 Total Bilirubin AST ALT Alkaline Phosphatase Total Creatine Kinase 28 L CK-MB (CK-2) TNP CK-MB (CK-2) Rel Index TNP Troponin I 0.125 H* Total Protein Albumin Globulin Albumin/Globulin Ratio 11/25/21 11/26/21 11/26/21 20:15 02:04 02:04 WBC 7.5 RBC 2.96 L Hgb 8.1 L Hct 24.4 L MCV 82.6 MCH 27.4 MCHC 33.2 RDW 15.3 H Plt Count 146 L Neut % (Auto) 80.8 H Lymph % (Auto) 10.7 L [place] % (Auto) 8.3 Eos % (Auto) 0.1 L Baso % (Auto) 0.1 Neut # (Auto) 6100 Lymph # (Auto) 800 L [place] # (Auto) 600 Eos # (Auto) 0 Baso # (Auto) 0 D-Dimer 4567 H Sodium 133 L Potassium 4.6 Chloride 93 L Carbon Dioxide 36 H BUN 19 H Creatinine 0.54 Estimated GFR > 60 BUN/Creatinine Ratio 35.2 H Glucose 135 H Calcium 8.6 Magnesium 2.0 Total Bilirubin 0.2 AST 19 ALT 14 Alkaline Phosphatase 64 Total Creatine Kinase CK-MB (CK-2) CK-MB (CK-2) Rel Index Troponin I Total Protein 5.7 L Albumin 3.2 L Globulin 2.5 Albumin/Globulin Ratio 1.3 11/26/21 11/26/21 02:04 07:55 WBC RBC Hgb Hct MCV MCH MCHC RDW Plt Count Neut % (Auto) Lymph % (Auto) [place] % (Auto) Eos % (Auto) Baso % (Auto) Neut # (Auto) Lymph # (Auto) [place] # (Auto) Eos # (Auto) Baso # (Auto) D-Dimer Sodium Potassium Chloride Carbon Dioxide BUN Creatinine Estimated GFR BUN/Creatinine Ratio Glucose Calcium Magnesium Total Bilirubin AST ALT Alkaline Phosphatase Total Creatine Kinase CK-MB (CK-2) CK-MB (CK-2) Rel Index Troponin I 0.110 H 0.094 H Total Protein Albumin Globulin Albumin/Globulin Ratio Exam Vital Signs (past 8 hours): - 11/26/21 02:00 11/26/21 02:28 11/26/21 02:28 Temperature Pulse Rate 90 91 H Respiratory Rate 23 23 Blood Pressure 110/58 L Pulse Oximetry 97 97 Oxygen Delivery Method Oxygen Flow Rate 11/26/21 03:00 11/26/21 03:00 11/26/21 03:11 Temperature Pulse Rate 87 Respiratory Rate 21 Blood Pressure 140/65 Pulse Oximetry 98 Oxygen Delivery Method Nasal Cannula Oxygen Flow Rate 11/26/21 04:00 11/26/21 04:00 11/26/21 05:00 Temperature 98.1 F Pulse Rate 88 Respiratory Rate 17 Blood Pressure 147/77 H Pulse Oximetry 100 Oxygen Delivery Method Oxygen Flow Rate 11/26/21 05:00 11/26/21 05:00 11/26/21 05:59 Temperature Pulse Rate 92 H 86 Respiratory Rate 14 15 Blood Pressure 159/77 H Pulse Oximetry 98 100 Oxygen Delivery Method Oxygen Flow Rate 11/26/21 06:00 11/26/21 06:01 11/26/21 07:00 Temperature Pulse Rate 87 Respiratory Rate 17 Blood Pressure 133/63 115/56 L Pulse Oximetry 100 Oxygen Delivery Method Oxygen Flow Rate 11/26/21 07:00 11/26/21 08:00 11/26/21 08:00 Temperature Pulse Rate 85 90 Respiratory Rate 16 35 H Blood Pressure 106/55 L Pulse Oximetry 100 92 Oxygen Delivery Method Oxygen Flow Rate 11/26/21 08:45 Temperature Pulse Rate 86 Respiratory Rate 22 Blood Pressure Pulse Oximetry 94 Oxygen Delivery Method Nasal Cannula Oxygen Flow Rate 4 Fraction of Inspired Oxygen 35 SaO2/FiO2 Ratio 271 Oxygen Delivery Method Nasal Cannula Oxygen Flow Rate 4 Quality TeleICU VTE Deep Vein Thrombosis/Pulmonary Embolism Present on Admission: No Assessment & Plan Assessment & Plan narrative: NEURO: -- Seek PT/OT as tolerated -- Pain control -- Early mobility RESP: # Chronic hypoxemia respiratory failure -- Back to baseline home O2 therapy -- Concern raises for PE but unable to get iodine due to allergy -- Venous duplex negative -- Consider PE to be less likely given improvement without rx -- Seek early mobility -- Goal SpO2 > 88% CVS: # Elevated troponin -- Secondary to demand ischemia -- Downtrending -- On ASA and lipitor -- TTE showed preserved LV function -- Monitor on telemetry # Bradycardia -- No further bradycardia noted in ICU -- Possible related to anesthesia vs vasovagal -- High lytes goal -- Monitor on telemetry HEME: # Anemia -- Hb 8.1 -- Daily CBC -- Goal Hb > 7 MSK: # R ankle fracture -- s/p repair -- Seek PT/OT and OOB as tolerated ENDO: -- Goal BS < 180 Time Spent With Patient Time with patient: less than 30 minutes Critical Care time: I spent a total of [] minutes of critical care time on this patient's care today; this time is exclusive of procedural time.
--- NOTE | 2021-11-26 09:26 | PM.PN.1 ---
Subjective Subjective Date Patient Seen: 11/26/21 Time Patient Seen: 08:30 Interval history: Patient feeling better. Hasn't had a BM in 10 days. Still has gaspar cath in. Notes pain is currently well-controlled. Would want to go home instead of SNF. Now back to 3L baseline O2. Exam Vital Signs (past 8 hours): - 11/26/21 02:00 11/26/21 02:28 11/26/21 02:28 Temperature Pulse Rate 90 91 H Respiratory Rate 23 23 Blood Pressure 110/58 L Pulse Oximetry 97 97 Oxygen Delivery Method Oxygen Flow Rate 11/26/21 03:00 11/26/21 03:00 11/26/21 03:11 Temperature Pulse Rate 87 Respiratory Rate 21 Blood Pressure 140/65 Pulse Oximetry 98 Oxygen Delivery Method Nasal Cannula Oxygen Flow Rate 11/26/21 04:00 11/26/21 04:00 11/26/21 05:00 Temperature 98.1 F Pulse Rate 88 Respiratory Rate 17 Blood Pressure 147/77 H Pulse Oximetry 100 Oxygen Delivery Method Oxygen Flow Rate 11/26/21 05:00 11/26/21 05:00 11/26/21 05:59 Temperature Pulse Rate 92 H 86 Respiratory Rate 14 15 Blood Pressure 159/77 H Pulse Oximetry 98 100 Oxygen Delivery Method Oxygen Flow Rate 11/26/21 06:00 11/26/21 06:01 11/26/21 07:00 Temperature Pulse Rate 87 Respiratory Rate 17 Blood Pressure 133/63 115/56 L Pulse Oximetry 100 Oxygen Delivery Method Oxygen Flow Rate 11/26/21 07:00 11/26/21 08:00 11/26/21 08:00 Temperature Pulse Rate 85 90 Respiratory Rate 16 35 H Blood Pressure 106/55 L Pulse Oximetry 100 92 Oxygen Delivery Method Oxygen Flow Rate 11/26/21 08:45 Temperature Pulse Rate 86 Respiratory Rate 22 Blood Pressure Pulse Oximetry 94 Oxygen Delivery Method Nasal Cannula Oxygen Flow Rate 4 Fraction of Inspired Oxygen 35 SaO2/FiO2 Ratio 271 Oxygen Delivery Method Nasal Cannula Oxygen Flow Rate 4 Narrative Exam Narrative: General:?elderly female, somewhat frail, no acute distress. Receiving O2 supplementation HEENT:? Normocephalic, atraumatic, extraocular muscles intact, oral pharynx is clear and mucous membranes are moist. Neck: supple and symmetric, trachea is midline, no cervical adenopathy. Negative for JVD Chest:? Normal AP diameter and contour without kyphoscoliosis, no tachypnea, equal chest rise bilaterally. Lungs:? Clear to auscultation. No wheezes or crackles. Cardio:?regular rhythm, no m/r/g. Abdomen: Soft nontender bowel sounds normal. Musculoskeletal:?R ankle postoperative dressing, general tenderness. Extremities: No edema or joint effusions. No cyanosis or clubbing. Skin:? Pale,? Warm to touch,dry and intact without rashes, ulcerations or petechiae.? Neuro:? Alert and orientated x3,? sensation diminshed bilateral feet, no gross deficits noted of cranial nerves. Psych:? Patient has a well-kept appearance, appropriate affect, mental status attitude thought context and judgment are appropriate for age. Objective Labs Result Diagrams: 11/26/21 02:04 11/26/21 02:04 Labs: Laboratory Results - last 24 hr 11/25/21 11/25/21 11/25/21 12:50 12:50 15:50 WBC 9.8 RBC 3.05 L Hgb 8.3 L Hct 25.4 L MCV 83.2 MCH 27.2 MCHC 32.7 RDW 15.6 H Plt Count 147 L Neut % (Auto) 77.9 H Lymph % (Auto) 13.1 L [place] % (Auto) 5.5 Eos % (Auto) 3.2 Baso % (Auto) 0.3 Neut # (Auto) 7600 H Lymph # (Auto) 1300 [place] # (Auto) 500 Eos # (Auto) 300 Baso # (Auto) 0 D-Dimer Sodium 130 L Potassium 4.9 Chloride 96 L Carbon Dioxide 32 BUN 21 H Creatinine 0.58 Estimated GFR > 60 BUN/Creatinine Ratio 36.2 H Glucose 171 H Calcium 8.2 L Magnesium Total Bilirubin AST ALT Alkaline Phosphatase Total Creatine Kinase 24 L CK-MB (CK-2) TNP CK-MB (CK-2) Rel Index TNP Troponin I 0.127 H* 0.121 H* Total Protein Albumin Globulin Albumin/Globulin Ratio 11/25/21 11/25/21 11/25/21 19:40 19:40 19:47 WBC 8.4 RBC 3.12 L Hgb 8.6 L Hct 25.7 L MCV 82.5 MCH 27.7 MCHC 33.5 RDW 15.5 H Plt Count 145 L Neut % (Auto) 91.6 H Lymph % (Auto) 3.9 L [place] % (Auto) 4.4 Eos % (Auto) 0.0 L Baso % (Auto) 0.1 Neut # (Auto) 7600 H Lymph # (Auto) 300 L [place] # (Auto) 400 Eos # (Auto) 0 Baso # (Auto) 0 D-Dimer Sodium 132 L Potassium 4.8 Chloride 95 L Carbon Dioxide 33 H BUN 21 H Creatinine 0.55 Estimated GFR > 60 BUN/Creatinine Ratio 38.2 H Glucose 169 H Calcium 8.7 Magnesium 1.9 Total Bilirubin AST ALT Alkaline Phosphatase Total Creatine Kinase 28 L CK-MB (CK-2) TNP CK-MB (CK-2) Rel Index TNP Troponin I 0.125 H* Total Protein Albumin Globulin Albumin/Globulin Ratio 11/25/21 11/26/21 11/26/21 20:15 02:04 02:04 WBC 7.5 RBC 2.96 L Hgb 8.1 L Hct 24.4 L MCV 82.6 MCH 27.4 MCHC 33.2 RDW 15.3 H Plt Count 146 L Neut % (Auto) 80.8 H Lymph % (Auto) 10.7 L [place] % (Auto) 8.3 Eos % (Auto) 0.1 L Baso % (Auto) 0.1 Neut # (Auto) 6100 Lymph # (Auto) 800 L [place] # (Auto) 600 Eos # (Auto) 0 Baso # (Auto) 0 D-Dimer 4567 H Sodium 133 L Potassium 4.6 Chloride 93 L Carbon Dioxide 36 H BUN 19 H Creatinine 0.54 Estimated GFR > 60 BUN/Creatinine Ratio 35.2 H Glucose 135 H Calcium 8.6 Magnesium 2.0 Total Bilirubin 0.2 AST 19 ALT 14 Alkaline Phosphatase 64 Total Creatine Kinase CK-MB (CK-2) CK-MB (CK-2) Rel Index Troponin I Total Protein 5.7 L Albumin 3.2 L Globulin 2.5 Albumin/Globulin Ratio 1.3 11/26/21 11/26/21 02:04 07:55 WBC RBC Hgb Hct MCV MCH MCHC RDW Plt Count Neut % (Auto) Lymph % (Auto) [place] % (Auto) Eos % (Auto) Baso % (Auto) Neut # (Auto) Lymph # (Auto) [place] # (Auto) Eos # (Auto) Baso # (Auto) D-Dimer Sodium Potassium Chloride Carbon Dioxide BUN Creatinine Estimated GFR BUN/Creatinine Ratio Glucose Calcium Magnesium Total Bilirubin AST ALT Alkaline Phosphatase Total Creatine Kinase CK-MB (CK-2) CK-MB (CK-2) Rel Index Troponin I 0.110 H 0.094 H Total Protein Albumin Globulin Albumin/Globulin Ratio [facility] Medical History Acute CVA (cerebrovascular accident) (2017) Anaphylactic reaction (07/31/08) Aortic stenosis Arthritis Chest pain Chronic obstructive pulmonary disease Constipation Coronary artery disease Current smoker (05/17/12) Depression Dermatitis Difficulty swallowing Diverticulosis 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) GERD (gastroesophageal reflux disease) Heart murmur History of aortic valve replacement with bioprosthetic valve (10/23/10) Hyperlipidemia Hypertension Hypothyroidism Macular degeneration Malignant neoplasm of lung Mitral valve disorder Neuropathy Nocturnal hypoxia Non Hodgkin's lymphoma Osteoarthritis (07/23/10) Osteoporosis (~2015) Peripheral neuropathy Pulmonary embolism Raynaud's disease (05/17/12) 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) Surgical History H/O total hysterectomy History of appendectomy History of cataract removal with insertion of prosthetic lens (2008) History of cholecystectomy History of lumpectomy of left breast History of lung surgery (1994) History of removal of Port-a-Cath (07/04/17) History of surgery Hx of aortic valve replacement (06/22/13) Hx of fusion of cervical spine (~03/2004) Hx of fusion of cervical spine (02/2006) Hx of hysterectomy (~04/1987) Status post cholecystectomy (08/22/09) Family History Mother Cancer Colon cancer Heart disease Father Lung cancer Brother Lung cancer Sister CVA (cerebral vascular accident) Heart disease Daughter Myocardial infarction Social History marital status: unknown household members: none Smoking Status: Former smoker Tobacco: How many years used: 50 second hand exposure: Yes alcohol intake: current substance use type: does not use Assessment & Plan Assessment & Plan narrative: 1. Acute R ankle fracture s/p ORIF, acute, present on admission -Accidentally caught foot between doors. Likely component of underlying osteoporosis. -Orthopedic surgery Dr. Verdugo following -Patient has a number of underlying chronic and possibly acute medical co-morbidities. -TTE performed to further assess valve. Ejection fraction 70-75%. Grade I diastolic dysfunction. Bioprosthetic valve is well seated. 2. Acute on chronic hypoxemic respiratory failure, resolved -Suspect COPD exacerbation, continue prednisone x5 days -Patient has underlying lung cancer and on 3L chronically -XR chest without infiltrates. -now back to baseline 3L -duonebs PRN 4. History of CAD with acute demand ischemia -Per prior cardiology notes (most recent I have is from 2 years ago) they considered stress testing and apparently have recommended valve replacement again which the patient did not wish to pursue. Last EF was 70% that I have records for (2 years ago). Is currently stable with echo showing during this hospitalization ejection fraction of 70-75%. -Continue ASA, statin -trops downtrending 5. R lung squamous cell carcinoma, non-hodkins lymphoma -S/p chemo and radiation, was apparently not a surgical candidate for resection per outpatient notes due to lung disease. -followed by Dr. Montejo at [facility] 6. chronic iron deficiency anemia -Appears stable in 8's 7. history of CVA ?-Continue home asa, statin changed to formulary alternative. 8. history of GI bleeding -Continue home PPI BID 9. ground level fall -She has chronic dizziness when standing, documented with cardiology as long as a few years ago, symptoms are not uncommon for her. With the occurrences of drop in blood heart rate in the OR as well as recovery, the patient is being monitored in ICU to document any temporary and paroxysmal EKG changes. -PT/OT eval 10. Advanced care planning ?She would want to be resuscitated if she could recover, but does not wish to be kept alive with the help of machines. Surrogate decision maker as noted below. ?Patient would be agreeable to short term SNF prior to returning home. She does not want to live in a fdc. She would be agreeable to caretakers or nurses coming to help her at home. Code: Full as discussed with the patient, surrogate is her daughter. DVT: Lovenox Dispo: PT recommending SNF, however patient will likely want PT instead. Likely dc 11/27. Time Spent With Patient Critical Care time: I spent a total of [] minutes of critical care time on this patient's care today; this time is exclusive of procedural time. Quality VTE Deep Vein Thrombosis/Pulmonary Embolism Present on Admission: No
[2021-11-26] MEDS: polyethylene glycoL 3350 17 GM POWD.PACK PO (09:50)
--- NOTE | 2021-11-26 11:55 | PT.IIE ---
Current Diagnoses Other fracture of right lower leg, initial encounter for closed fracture (11/23/21) Surgery Performed Operation Date: 11/24/21 10:30 <No data on this case meets the specified criteria> Operation Date: 11/25/21 10:30 Actual Procedures p ORIF Ankle Fracture(Right) - Марина Verdugo MD Surgical History (Last Reviewed 11/26/21 @ 09:27 by Wil Byrd DO) H/O total hysterectomy History of appendectomy History of cataract removal with insertion of prosthetic lens (2008) History of cholecystectomy History of lumpectomy of left breast History of lung surgery (1994) History of removal of Port-a-Cath (07/04/17) History of surgery Hx of aortic valve replacement (06/22/13) Hx of fusion of cervical spine (~03/2004) Hx of fusion of cervical spine (02/2006) Hx of hysterectomy (~04/1987) Status post cholecystectomy (08/22/09) Medical History (Last Reviewed 11/26/21 @ 09:27 by Wil Byrd DO) Acute CVA (cerebrovascular accident) (2017) Anaphylactic reaction (07/31/08) Aortic stenosis Arthritis Chest pain Chronic obstructive pulmonary disease Constipation Coronary artery disease Current smoker (05/17/12) Depression Dermatitis Difficulty swallowing Diverticulosis 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) GERD (gastroesophageal reflux disease) Heart murmur History of aortic valve replacement with bioprosthetic valve (10/23/10) Hyperlipidemia Hypertension Hypothyroidism Macular degeneration Malignant neoplasm of lung Mitral valve disorder Neuropathy Nocturnal hypoxia Non Hodgkin's lymphoma Osteoarthritis (07/23/10) Osteoporosis (~2015) Peripheral neuropathy Pulmonary embolism Raynaud's disease (05/17/12) 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 pt stated that she can stay on the main level of the house no steps to enter the house Home Environment High Toilet Home Equipment Four Wheel Walker,Manual Wheelchair,Hand Held Shower, Grab Bars In Shower Additional Social History Comment pt has a walk in tub shower and an adjustable bed M2 PT-IP Current Condition Start: 11/26/21 13:35 Freq: NEEDED Status: Active Protocol: Document 11/26/21 11:55 AB (Rec: 11/26/21 13:49 AB [id number]) Physical Therapy Current Condition Current Condition Evaluation Date 11/26/21 Treatment Diagnosis R ankle fx s/p ORIF; difficulty in walking Onset Date 11/23/21 M3 PT-IP Subjective Start: 11/26/21 13:35 Freq: NEEDED Status: Active Protocol: Document 11/26/21 11:55 AB (Rec: 11/26/21 13:49 AB [email or web address]) Subjective Physical Therapy Visit Type Type Initial Evaluation Visit Start Time 11:55 Visit Stop Time 12:30 Total Visit Minutes 35 Number of DRIED FRUIT WASHER Visits 0 Physical Therapy Visit Comments Patient Comments agreeable to do PT but c/o nausea M4 PT-IP Mobility and Gait Start: 11/26/21 13:35 Freq: NEEDED Status: Active Protocol: Document 11/26/21 11:55 AB (Rec: 11/26/21 13:49 AB [id number]) PT-Bed Mobility Assessment Supine to Sit Supine to Sit Maximum Assistance,1 Person Assistance,2 Person Assistance ,Head of Bed Elevated Sit to Supine Sit to Supine Maximum Assistance,2 Person Assistance,Head of Bed Elevated PT-Transfer Assessment Comments Mobility Comments pt c/o nausea. informed nurse and pt given medication. BP in supine: 85/53. informed nurse regarding low BP and stated that pt should be fine. pt then c/o cold sweats but willing to mobilize with PT. completed supine to sit max A x 1- 2 and max cues. continues to c/o nausea, dizziness and sweating. BP in sittin/60. pt only tolerated ~ 1-2 minutes of sitting on EOB and requested to lay back in bed due to increase nausea. completed sit to supine max A x 2 and max cues. positioned pt in bed. call light and table placed within reach. BP checked: 117/60. informed immigration case manager regarding pt's mobility and activity tolerance. Gait Assessment Comments Gait Comments unable at this time PT-Balance Assessment Sitting Balance and Reactions Static Sitting Balance Ability Fair Dynamic Sitting Balance Ability Fair M5 PT-IP Objective Assessments Start: 11/26/21 13:35 Freq: NEEDED Status: Active Protocol: Document 11/26/21 11:55 AB (Rec: 11/26/21 13:49 AB [id number]) Orientation Orientation/Cognition Level of Alertness Alert Orientation Name,Place,Situation Language Function Ability Hard of Hearing Safety Awareness Decreased Safety Awareness Memory Description Short Term Impaired Gross Range of Motion Lower Extremity ROM Impairments R ankle on walker boot Strength Lower Extremity Strength Assessment Bilaterally Impaired Comments Strength Comments LLE: 3-/5 RLE: 2+/5 Muscle Tone Muscle Tone WNL Yes M6 PT-IP Treatment Start: 11/26/21 13:35 Freq: NEEDED Status: Active Protocol: Document 11/26/21 11:55 AB (Rec: 11/26/21 13:49 AB [email or web address]) Physical Therapy Treatment Education Education Provided Precautions,Weight Bearing Status,Safety M7 PT-IP Assessment and Plan Start: 11/26/21 13:35 Freq: NEEDED Status: Active Protocol: Document 11/26/21 11:55 AB (Rec: 11/26/21 13:49 AB [email or web address]) PT Summary Assessment and Plan Potential Rehabilitation Potential Fair Status of Condition at Evaluation Evolving Summary Impairments Pain,ROM,Strength,Balance, Coordination,Sensation,Tone, Cognition,Bed Mobility, Transfers,Gait,Activity Tolerance Assessment Summary pt requiring max A x 1-2 with bed mobility and unable to tolerate much activity with c/ o increase nausea, dizziness and sweating with BP: 85-88/53 -60. Pt lives alone and will not have any assistance at home. Pt will require SNF rehab at this time. will continue to assess progress. Goals Bed Mobility Goal Minimal Assistance Transfer Goal Minimal Assistance,Front Wheeled Walker Gait Goal Minimal Assistance,Front Wheel Walker Gait Distance 25 Other Goals improve bed mobility, transfer using FWW and ambulation using FWW ~ 50 ft SBA Days to Meet Goals 10 Frequency of Treatment Frequency Of Treatment Twice a Day Treatment Plan Physical Therapy Treatment Plan Bed Mobility Training,Transfer Training,Gait Training, Therapeutic Exercise,Balance Retraining,Post Op Education, Discharge Planning,Hot or Cold Pack,Neuromuscular Re-ed, Coordination Retraining,Manual Therapy Weight Bearing Status Weight Bearing Status Weight Bear as Tolerated Allowed Weight Bearing Amount (enter % RLE WBAT with walker boot and or #) (%) use of walker (NWB if without boot/walker) Recommendations To Nursing Amount of Assist Needed PT/OT Assist Only Discharge Recommendations PT Discharge Recommendations SNF Rehab Equipment Needed for Home Before FWW if pt goes home Discharge Transportation Needs at Discharge Wheelchair/Cabulance,Stretcher /Ambulance
[2021-11-26] MEDS: ONDANSETRON 4 MG/2 ML INJ IV ×2 (12:01→21:09)
[2021-11-26] MEDS: SENNOSIDES 8.6 MG TABLET PO ×2 (12:28→21:01)
--- NOTE | 2021-11-26 15:00 | PT.IPTN ---
Current Diagnoses Other fracture of right lower leg, initial encounter for closed fracture (11/23/21) Surgery Performed Operation Date: 11/24/21 10:30 <No data on this case meets the specified criteria> Operation Date: 11/25/21 10:30 Actual Procedures p ORIF Ankle Fracture(Right) - Марина Verdugo MD Physical Therapy Treatment Note M2 PT-IP Current Condition Start: 11/26/21 13:35 Freq: NEEDED Status: Active Protocol: Document 11/26/21 11:55 AB (Rec: 11/26/21 13:49 AB [email or web address]) Physical Therapy Current Condition Current Condition Evaluation Date 11/26/21 Treatment Diagnosis R ankle fx s/p ORIF; difficulty in walking Onset Date 11/23/21 M3 PT-IP Subjective Start: 11/26/21 13:35 Freq: NEEDED Status: Active Protocol: Document 11/26/21 15:00 AB (Rec: 11/26/21 16:13 AB [email or web address]) Subjective Physical Therapy Visit Type Type Treatment Note Visit Start Time 15:00 Visit Stop Time 15:45 Total Visit Minutes 45 Number of PLANT SUPERVISOR Visits 0 Physical Therapy Visit Comments Patient Comments agreeable to do PT M4 PT-IP Mobility and Gait Start: 11/26/21 13:35 Freq: NEEDED Status: Active Protocol: Document 11/26/21 15:00 AB (Rec: 11/26/21 16:13 AB [email or web address]) PT-Bed Mobility Assessment Supine to Sit Supine to Sit Maximum Assistance,1 Person Assistance,Head of Bed Elevated,Bedrails PT-Transfer Assessment Sit to and From Stand Sit to and from Stand Maximum Assistance,1 Person Assistance,2 Person Assistance ,Use of Upper Extremities Equipment Transfer Assistive Device Gait Belt,Front Wheeled Walker Orthotic/Prosthetic Devices or Brace: Yes Transfers Transfer Destination Chair Transfer Technique Stand Step Pivot Transfer Ability Level of Assist Maximum Assistance,1 Person Assistance,2 Person Assistance ,Use of Upper Extremities Comments Mobility Comments pt with c/o pain on R ankle lateral side and adjusted walker boot but seems like boot provided to pt post-op is too small due to dressing/ acewrap and swelling on leg. informed nurse and stated that she will let ortho MD/PA know if pt needed another. pt agreed to mobilize with PT. BP in supine: 85/49 completed supine to sit max A and max cues with HOB elevated. pt able to sit on EOB SBA. completed sit to stand max A x 1-2 and max cues and step transfer to chair using FWW max A x 1-2 and max cues. (+) L knee slight buckling during transfers. max A for controlled descent to chair. positioned on chair. BP: 74/ 49 after transfers but increased to 98/51 after 1-2 min of seated rest. call light and table placed within reach. M5 PT-IP Objective Assessments Start: 11/26/21 13:35 Freq: NEEDED Status: Active Protocol: Document 11/26/21 11:55 AB (Rec: 11/26/21 13:49 AB [id number]) Orientation Orientation/Cognition Level of Alertness Alert Orientation Name,Place,Situation Language Function Ability Hard of Hearing Safety Awareness Decreased Safety Awareness Memory Description Short Term Impaired Gross Range of Motion Lower Extremity ROM Impairments R ankle on walker boot Strength Lower Extremity Strength Assessment Bilaterally Impaired Comments Strength Comments LLE: 3-/5 RLE: 2+/5 Muscle Tone Muscle Tone WNL Yes M6 PT-IP Treatment Start: 11/26/21 13:35 Freq: NEEDED Status: Active Protocol: Document 11/26/21 15:00 AB (Rec: 11/26/21 16:13 AB [email or web address]) Physical Therapy Treatment Education Education Provided Precautions,Weight Bearing Status,Safety M7 PT-IP Assessment and Plan Start: 11/26/21 13:35 Freq: NEEDED Status: Active Protocol: Document 11/26/21 15:00 AB (Rec: 11/26/21 16:13 AB [email or web address]) PT Summary Assessment and Plan Potential Rehabilitation Potential Fair Summary Impairments Pain,ROM,Strength,Balance, Coordination,Sensation,Tone, Cognition,Bed Mobility, Transfers,Gait,Activity Tolerance Progress Towards Goals Slow Progress due to Pain,Slow Progress due to Medical Issues,Slow Progress due to Activity Tolerance Assessment Summary pt requiring max A x 1-2 with mobility and unable to ambulate at this time. pt will need 24/7 assistance availability and will need SNF rehab at this time. will continue to assess progress Goals Bed Mobility Goal Minimal Assistance Transfer Goal Minimal Assistance,Front Wheeled Walker Gait Goal Minimal Assistance,Front Wheel Walker Gait Distance 25 Other Goals improve bed mobility, transfer using FWW and ambulation using FWW ~ 50 ft SBA Days to Meet Goals 10 Frequency of Treatment Frequency Of Treatment Twice a Day Treatment Plan Physical Therapy Treatment Plan Bed Mobility Training,Transfer Training,Gait Training, Therapeutic Exercise,Balance Retraining,Post Op Education, Discharge Planning,Hot or Cold Pack,Neuromuscular Re-ed, Coordination Retraining,Manual Therapy Weight Bearing Status Weight Bearing Status Weight Bear as Tolerated Allowed Weight Bearing Amount (enter % RLE WBAT with walker boot and or #) (%) use of walker (NWB if without boot/walker) Recommendations To Nursing Amount of Assist Needed 2 Person Assist Discharge Recommendations PT Discharge Recommendations SNF Rehab Equipment Needed for Home Before FWW if pt goes home Discharge Transportation Needs at Discharge Wheelchair/Cabulance,Stretcher /Ambulance
[2021-11-26] MEDS: OXYCODONE IR 5 MG TABLET PO ×2 (15:07→18:52)
--- NOTE | 2021-11-26 15:38 | CM.DPC ---
DCP SNF Planning: Per Ortho PA, pt doing well after surgery and likely will need SNF but needs to work with PT today. Per PT, attempted to work with pt but had orthostatic issues and will attempt again this afternoon. SW attempted to meet bedside with pt twice and once pt needed to have a bm and the next pt had friends bedside and PT was attempting again but recommendation is SNF. SW quickly discussed [facility] acceptance and good potential for d/c tomorrow if pt remains stable. Pt's Dtr to be bedside this evening. Plan: SW to follow closely for likely plan of d/c to [facility] tomorrow 11/27/21 if medically stable and PASRR already completed but will need updated COVID swab at d/c. AMY Schreiber
[2021-11-26] MEDS: ATORVASTATIN 20 MG TABLET 40 MG PO (21:01)
[2021-11-26] MEDS: SODIUM CHLORIDE 0.9% FLUSH 10 ML IV (21:05)
[2021-11-26] MEDS: FLEETS ENEMA 1 EACH PR (21:14)
[2021-11-27] VITALS (25 sets, daily range): BP systolic 77–116; BP diastolic 48–61; PULSE 81–94; RESP 18–35; TEMP 36.3–37.2; O2SAT 64–98
[2021-11-27 05:11] LABS: Add Manual Diff / Slide Review NO; Basophils Absolute Auto 0 /uL (0-100); Basophils Percent Auto 0.5 % (0-2); Eosinophils Absolute Auto 600 /uL (0-450); Eosinophils Percent Auto 7.3 % (2-4); Hematocrit 24.8 % (36-46); Hemoglobin 8.3 g/dL (12.0-16.0); Lymphocytes Absolute Auto 1100 /uL (1100-4500); Lymphocytes Percent Auto 12.8 % (25-40); Mean Corpuscular HGB Conc 33.6 % (30-36); Mean Corpuscular Hemoglobin 27.4 PG (26-34); Mean Corpuscular Volume 81.5 fL (80-100); Monocytes Absolute Auto 600 /uL (0-900); Monocytes Percent Auto 7.6 % (3-14); Neutrophils Absolute Auto 5900 /uL (1500-7000); Neutrophils Percent Auto 71.8 % (50-75); Platelet Count 171 X10^3/uL (150-400); Red Blood Cell Count 3.05 X10^6/uL (4.0-5.2); Red Cell Distribution Width 15.6 % (11.6-14.8); White Blood Cell Count 8.2 X10^3/uL (4.5-11.0)
[2021-11-27 05:18] LABS: BUN Creatinine Ratio 25.9 (6-22); Blood Urea Nitrogen 15 mg/dL (7-17); Calcium 8.5 mg/dL (8.4-10.2); Carbon Dioxide 36 mmol/L (22-32); Chloride 93 mmol/L (98-107); Estimated Glomerular Filt Rate > 60 mL/min (>60); Glucose 92 mg/dL (80-110); HEMOLYSIS < 15 (0-50); Potassium 4.6 mmol/L (3.4-5.1); Sodium 131 mmol/L (137-145)
[2021-11-27 05:47] LABS: TSH w/ Reflex to FT4 8.09 uIU/mL (0.47-4.68)
[2021-11-27 06:16] LABS: Free T4, Direct Thyroxine 1.29 ng/dL (0.78-2.19)
--- NOTE | 2021-11-27 06:29 | PC.NURSE ---
Addendum entered by Helen James R.N. 11/27/21 07:04: Fleets enema given along with prune juice cocktail and scheduled bowel meds, up to BSC twice with 2 person assist, passing flatus and small mucus blood tinged stool. Original Note: Pt stable throughout the night. BPs have been soft but MAP remained >65. Pt progressively became more confused as the night went on. Orientated to name, age, and birthday. Currently on 3.5 L satting around 91%. Bueno was removed at 0630 this morning. Urine output 750cc.
[2021-11-27] MEDS: ACETAMINOPHEN 325 MG TABLET 975 MG PO (06:50)
[2021-11-27] MEDS: PANTOPRAZOLE DR 40 MG TABLET PO (06:50)
--- NOTE | 2021-11-27 07:53 | P.PN_ITS ---
Exam Vital Signs (past 8 hours): - 11/27/21 00:00 11/27/21 04:00 Temperature 98.4 F 97.3 F L Pulse Rate 89 85 Respiratory Rate 19 20 Blood Pressure 92/54 L 98/56 L Pulse Oximetry 90 L 91 Oxygen Flow Rate 2 2 Fraction of Inspired Oxygen 35 SaO2/FiO2 Ratio 271 Oxygen Delivery Method Nasal Cannula Oxygen Flow Rate 2 Narrative Exam Narrative: General:?elderly female, somewhat frail, no acute distress. Receiving O2 supplementation HEENT:? Normocephalic, atraumatic, extraocular muscles intact, oral pharynx is clear and mucous membranes are moist. Neck: supple and symmetric, trachea is midline, no cervical adenopathy. Negative for JVD Chest:? Normal AP diameter and contour without kyphoscoliosis, no tachypnea, equal chest rise bilaterally. Lungs:? Clear to auscultation. No wheezes or crackles. Cardio:?regular rhythm, no m/r/g. Abdomen: Soft nontender bowel sounds normal. Musculoskeletal:?R ankle postoperative dressing, general tenderness. Extremities: No edema or joint effusions. No cyanosis or clubbing. Skin:? Pale,? Warm to touch,dry and intact without rashes, ulcerations or petechiae.? Neuro:? Alert and orientated x3,? sensation diminshed bilateral feet, no gross deficits noted of cranial nerves. Psych:? Patient has a well-kept appearance, appropriate affect, mental status attitude thought context and judgment are appropriate for age. Objective Labs Result Diagrams: 11/27/21 04:42 11/27/21 04:42 Labs: Laboratory Results - last 24 hr 11/26/21 11/27/21 11/27/21 07:55 04:42 04:42 WBC 8.2 RBC 3.05 L Hgb 8.3 L Hct 24.8 L MCV 81.5 MCH 27.4 MCHC 33.6 RDW 15.6 H Plt Count 171 Neut % (Auto) 71.8 Lymph % (Auto) 12.8 L [place] % (Auto) 7.6 Eos % (Auto) 7.3 H Baso % (Auto) 0.5 Neut # (Auto) 5900 Lymph # (Auto) 1100 [place] # (Auto) 600 Eos # (Auto) 600 H Baso # (Auto) 0 Sodium 131 L Potassium 4.6 Chloride 93 L Carbon Dioxide 36 H BUN 15 Creatinine 0.58 Estimated GFR > 60 BUN/Creatinine Ratio 25.9 H Glucose 92 Calcium 8.5 Troponin I 0.094 H TSH Free T4 11/27/21 04:42 WBC RBC Hgb Hct MCV MCH MCHC RDW Plt Count Neut % (Auto) Lymph % (Auto) [place] % (Auto) Eos % (Auto) Baso % (Auto) Neut # (Auto) Lymph # (Auto) [place] # (Auto) Eos # (Auto) Baso # (Auto) Sodium Potassium Chloride Carbon Dioxide BUN Creatinine Estimated GFR BUN/Creatinine Ratio Glucose Calcium Troponin I TSH 8.09 H Free T4 1.29 [facility] Medical History Acute CVA (cerebrovascular accident) (2017) Anaphylactic reaction (07/31/08) Aortic stenosis Arthritis Chest pain Chronic obstructive pulmonary disease Constipation Coronary artery disease Current smoker (05/17/12) Depression Dermatitis Difficulty swallowing Diverticulosis 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) GERD (gastroesophageal reflux disease) Heart murmur History of aortic valve replacement with bioprosthetic valve (10/23/10) Hyperlipidemia Hypertension Hypothyroidism Macular degeneration Malignant neoplasm of lung Mitral valve disorder Neuropathy Nocturnal hypoxia Non Hodgkin's lymphoma Osteoarthritis (07/23/10) Osteoporosis (~2015) Peripheral neuropathy Pulmonary embolism Raynaud's disease (05/17/12) 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) Surgical History H/O total hysterectomy History of appendectomy History of cataract removal with insertion of prosthetic lens (2008) History of cholecystectomy History of lumpectomy of left breast History of lung surgery (1994) History of removal of Port-a-Cath (07/04/17) History of surgery Hx of aortic valve replacement (06/22/13) Hx of fusion of cervical spine (~03/2004) Hx of fusion of cervical spine (02/2006) Hx of hysterectomy (~04/1987) Status post cholecystectomy (08/22/09) Family History Mother Cancer Colon cancer Heart disease Father Lung cancer Brother Lung cancer Sister CVA (cerebral vascular accident) Heart disease Daughter Myocardial infarction Social History marital status: unknown household members: none Smoking Status: Former smoker Tobacco: How many years used: 50 second hand exposure: Yes alcohol intake: current substance use type: does not use Assessment & Plan Assessment & Plan narrative: 1. Acute R ankle fracture s/p ORIF, acute, present on admission -Accidentally caught foot between doors. Likely component of underlying oste oporosis. -Orthopedic surgery Dr. Verdugo following -Patient has a number of underlying chronic and possibly acute medical co- morbidities. -TTE performed to further assess valve. Ejection fraction 70-75%. Grade I diastolic dysfunction. Bioprosthetic valve is well seated. 2. Acute on chronic hypoxemic respiratory failure, resolved -Suspect COPD exacerbation, continue prednisone x5 days -Patient has underlying lung cancer and on 3L chronically -XR chest without infiltrates. -now back to baseline 3L -duonebs PRN 4. History of CAD with acute demand ischemia -Per prior cardiology notes (most recent I have is from 2 years ago) they considered stress testing and apparently have recommended valve replacement again which the patient did not wish to pursue. Last EF was 70% that I have records for (2 years ago). Is currently stable with echo showing during this hospitalization ejection fraction of 70-75%. -Continue ASA, statin -trops downtrending 5. R lung squamous cell carcinoma, non-hodkins lymphoma -S/p chemo and radiation, was apparently not a surgical candidate for resection per outpatient notes due to lung disease. -followed by Dr. Montejo at [facility] onc 6. chronic iron deficiency anemia -Appears stable in 8's 7. history of CVA ?-Continue home asa, statin changed to formulary alternative. 8. history of GI bleeding -Continue home PPI BID 9. ground level fall -She has chronic dizziness when standing, documented with cardiology as long as a few years ago, symptoms are not uncommon for her. With the occurrences of drop in blood heart rate in the OR as well as recovery, the patient is being monitored in ICU to document any temporary and paroxysmal EKG changes. -PT/OT eval 10. Advanced care planning ?She would want to be resuscitated if she could recover, but does not wish to be kept alive with the help of machines. Surrogate decision maker as noted below. ?Patient would be agreeable to short term SNF prior to returning home. She does not want to live in a retirement. She would be agreeable to caretakers or nurses coming to help her at home. Code: Full as discussed with the patient, surrogate is her daughter. DVT: Lovenox Dispo: PT recommending SNF, however patient will likely want PT instead. Likely dc 11/27. Time Spent With Patient Critical Care time: I spent a total of [] minutes of critical care time on this patient's care today; this time is exclusive of procedural time. Quality VTE Deep Vein Thrombosis/Pulmonary Embolism Present on Admission: No
[2021-11-27] MEDS: ALBUTEROL/IPRATROPIUM 3 ML AMPUL INH (09:15)
[2021-11-27] MEDS: LEVOTHYROXINE 50 MCG TABLET PO (09:19)
[2021-11-27] MEDS: METOPROLOL ER 25 MG TABLET PO (09:19)
[2021-11-27] MEDS: SENNOSIDES 8.6 MG TABLET PO (09:19)
[2021-11-27] MEDS: DOCUSATE 100 MG CAPSULE PO (09:19)
[2021-11-27] MEDS: ASPIRIN EC 81 MG TABLET PO (09:20)
[2021-11-27] MEDS: ENOXAPARIN 40 MG/0.4 ML SYRINGE SUBCUT (09:20)
[2021-11-27] MEDS: polyethylene glycoL 3350 17 GM POWD.PACK PO (09:20)
[2021-11-27] MEDS: SODIUM CHLORIDE 0.9% FLUSH 10 ML IV (09:25)
[2021-11-27] MEDS: OXYCODONE IR 5 MG TABLET PO (09:36)
--- NOTE | 2021-11-27 11:15 | PM.PNPO.1 ---
Subjective Subjective Date Patient Seen: 11/27/21 Time Patient Seen: 13:22 Interval history: Up in chair, eating lunch, friends and family in room. Pain well-controlled, boot on. Plan is for tx to SNF shortly. Exam Vital Signs (past 8 hours): - 11/27/21 04:00 11/27/21 08:00 11/27/21 03:16 Temperature 97.3 F L 99.0 F Pulse Rate 85 82 88 Respiratory Rate 20 21 32 H Blood Pressure 98/56 L 100/58 L Pulse Oximetry 91 89 L 64 L Oxygen Delivery Method Oxygen Flow Rate 2 3 11/27/21 03:16 11/27/21 03:17 11/27/21 03:17 Temperature Pulse Rate 87 Respiratory Rate 30 H Blood Pressure 86/53 L 86/50 L Pulse Oximetry 66 L Oxygen Delivery Method Oxygen Flow Rate 11/27/21 03:19 11/27/21 03:19 11/27/21 04:00 Temperature Pulse Rate 86 91 H Respiratory Rate 21 24 Blood Pressure 98/56 L Pulse Oximetry Oxygen Delivery Method Oxygen Flow Rate 11/27/21 05:00 11/27/21 06:00 11/27/21 07:00 Temperature Pulse Rate 86 89 84 Respiratory Rate 25 H 28 H 25 H Blood Pressure Pulse Oximetry Oxygen Delivery Method Oxygen Flow Rate 11/27/21 07:44 11/27/21 07:44 11/27/21 08:00 Temperature Pulse Rate 82 84 Respiratory Rate 20 23 Blood Pressure 100/58 L Pulse Oximetry 87 L Oxygen Delivery Method Oxygen Flow Rate 11/27/21 09:19 11/27/21 09:30 11/27/21 10:20 Temperature Pulse Rate 82 82 83 Respiratory Rate 18 Blood Pressure 100/58 L 88/51 L Pulse Oximetry 98 Oxygen Delivery Method Nasal Cannula Oxygen Flow Rate 3 Fraction of Inspired Oxygen 35 SaO2/FiO2 Ratio 271 Oxygen Delivery Method Nasal Cannula Oxygen Flow Rate 3 Narrative Exam Narrative: Pt able to wiggle toes, flex and extend knee. Toes warm, sensation intact. Objective Labs Result Diagrams: 11/27/21 04:42 11/27/21 04:42 Labs: Laboratory Results - last 24 hr 11/27/21 11/27/21 11/27/21 04:42 04:42 04:42 WBC 8.2 RBC 3.05 L Hgb 8.3 L Hct 24.8 L MCV 81.5 MCH 27.4 MCHC 33.6 RDW 15.6 H Plt Count 171 Neut % (Auto) 71.8 Lymph % (Auto) 12.8 L Angelina % (Auto) 7.6 Eos % (Auto) 7.3 H Baso % (Auto) 0.5 Neut # (Auto) 5900 Lymph # (Auto) 1100 Angelina # (Auto) 600 Eos # (Auto) 600 H Baso # (Auto) 0 Sodium 131 L Potassium 4.6 Chloride 93 L Carbon Dioxide 36 H BUN 15 Creatinine 0.58 Estimated GFR > 60 BUN/Creatinine Ratio 25.9 H Glucose 92 Calcium 8.5 TSH 8.09 H Free T4 1.29 PFSH Medical History Acute CVA (cerebrovascular accident) (2017) Anaphylactic reaction (07/31/08) Aortic stenosis Arthritis Chest pain Chronic obstructive pulmonary disease Constipation Coronary artery disease Current smoker (05/17/12) Depression Dermatitis Difficulty swallowing Diverticulosis 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) GERD (gastroesophageal reflux disease) Heart murmur History of aortic valve replacement with bioprosthetic valve (10/23/10) Hyperlipidemia Hypertension Hypothyroidism Macular degeneration Malignant neoplasm of lung Mitral valve disorder Neuropathy Nocturnal hypoxia Non Hodgkin's lymphoma Osteoarthritis (07/23/10) Osteoporosis (~2015) Peripheral neuropathy Pulmonary embolism Raynaud's disease (05/17/12) 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) Surgical History H/O total hysterectomy History of appendectomy History of cataract removal with insertion of prosthetic lens (2008) History of cholecystectomy History of lumpectomy of left breast History of lung surgery (1994) History of removal of Port-a-Cath (07/04/17) History of surgery Hx of aortic valve replacement (06/22/13) Hx of fusion of cervical spine (~03/2004) Hx of fusion of cervical spine (02/2006) Hx of hysterectomy (~04/1987) Status post cholecystectomy (08/22/09) Family History Mother Cancer Colon cancer Heart disease Father Lung cancer Brother Lung cancer Sister CVA (cerebral vascular accident) Heart disease Daughter Myocardial infarction Social History marital status: unknown household members: none Smoking Status: Former smoker Tobacco: How many years used: 50 second hand exposure: Yes alcohol intake: current substance use type: does not use Assessment & Plan Post-op Assessment and plan (1) Trimalleolar fracture of ankle, closed: Assessment and Plan narrative: Weightbear as tolerated in boot with a walker.? Elevate above the heart level as much as possible to help with swelling and incision healing.? If boot uncomfortable may take it off in bed and exchange for a night splint but should wear either the boot or resting night splint to prevent Achilles contracture.? Keep dressing clean dry and in place.? Follow up in ortho office w/ Dr Verdugo or a YESSY between December 09 and Dec 12. At this time, incisions will be evaluated for suture removal. Sutures will remain in place for at least 2 and up to 4 weeks; patient has a thin skin so these may in place longer.? Recommend Lovenox 4 weeks for DVT prophylaxis due to increased risks with the a immobility, and cancer. Postoperative Procedures: Procedures Operation Date: 11/24/21 10:30 <No data on this case meets the specified criteria> Operation Date: 11/25/21 10:30 Actual Procedure Side Surgeon p ORIF Ankle Fracture Right Марина Verdugo MD Postoperative day: 2 Quality VTE Deep Vein Thrombosis/Pulmonary Embolism Present on Admission: No
--- NOTE | 2021-11-27 12:07 | CM.DPC ---
DCP Cont: Met with patient, daughter Kenyetta, and friend Nicolette, in patient's room. Patient has stated, I don't want to go to a group home, it's depressing, and I can do therapy at home. Let patient know that she would be going to rehab on a temporary basis, not on custodial, with the goal to get stronger to go home. Daughter, Kenyetta, also reminded patient that she is unable to transfer on her own, and will be in need of short term rehab. Patient continued to state, but I've been to [facility]'s outpatient, I can just get in the car and drive myself, or someone can drive me. Patient was reminded that due to her ankle fracture, takes a max of two to assist, and she would not be able get in the car on her own. Patient continued to state, I can do it, I find nursing homes depressing. EMMANUEL Carrillo, came in and joined conversation. She reminded patient that rehab is short term, with the goal to go home with either home health, or to proceed with outpatient therapy. Patient continued to still want to go home. Dr. Byrd then came into room and spoke to patient, letting her know that going home is unsafe, she could have further falls, and if she would be willing to try rehab for a week. Patient then said ok. The plan is for patient to be picked up between [id number]. COVID swab was obtained by nursing. Daughter is aware of time. P: Patient should be going to [facility] today with excelsior picker between [id number]. Roberta Armijo RN/Social Media Assistant
--- NOTE | 2021-11-27 12:13 | PM.DS.1 ---
History of Present Illness History of Present Illness Date Patient Seen: 11/27/21 Time Patient Seen: 12:14 Chief complaint: GLF, weakness Narrative: This is a 81 year old female with PMH of CAD, AV replacement with bioprosthetic valve with high valve gradients as of 2 years ago (reportedly needing new valve per her digital sales planner), COPD/emphysema with chronic hypoxic respiratory failure on 3L home O2 at night, HTN, HLD, hypothyroidism, Right lung SCC, non-hodkin's lymphoma who presented with R ankle pain after a fall at home. Patient states that for quite some time now she gets dizzy with sudden positional changes, more often in the mornings. She is supposed to use a walker, but wasn't this morning when she needed to let her dog out around 6am. She opened the door and became light headed and felt like she was going to pass out but she did not but did fall onto her knees. She did not lose consciousness, she had immediate pain and had a life-alert which she used. She denies any recent shortness of breath worse than usual, diarrhea, chest pain, palpitations. She has chronic dyspnea on exertion, able to only climb a few steps at a time, and can maybe walk 50 ft before stopping. She denies LE edema, orthopnea, worsened cough than usual, fever, chils, abdominal pain, nausea, vomiting, dysuria, or urinary frequency. In the emergency room, patient was mildly hypoxic started on oxygen.? She seems to be requiring more her usual 3 L, and was 89% on 6 L. She was found to have an unstable R ankle fracture with medial and lateral malleolar fractures with possible posterior fracture as well. Shortly after arrival to the hospital floor, she had a 30 second episode of a supraventricular tachycardia, unclear type on telemetry. She denied chest pain or palpitations, did feel slightly dizzy with the arrythmia though. Vitals were otherwise unremarkable. She was admitted to medicine with orthopedic surgery consultation, patient planned for operative fixation tomorrow if medically stable. Discharge Providers Provider Date of admission: 11/23/21 13:33 Discharge Date: 11/27/21 Primary care physician: EDDIE Cheema Consults: 11/23/21 13:35 Consult to Orthopedic Surgery Routine Comment: Consulting Provider: Марина Verdugo Reason for consultation: right hip fx. Has provider been notified: Yes 11/23/21 14:53 Consult to Dietitian, Adult Routine Comment: Reason For Exam: increased weight lose, over 20 lbs 11/23/21 15:09 Consult to Respiratory Therapy Evaluate & Treat Comment: unable to maintain 89% on 6L Physician Instructions: Evaluate and treat 11/25/21 13:28 Consult to Discharge Planning Routine Comment: Consult to Physical Therapy Evaluate & Treat Comment: wbat with walker in boot, no wb w/o boot&walker Physician Instructions: Evaluate and Treat Consult to Respiratory Therapy Evaluate & Treat Comment: Physician Instructions: Evaluate and treat 11/25/21 19:21 Consult to Tele-network relations consultant Routine Comment: Consulting Provider: Becky Tele-intensivists Reason for consultation: Rn [facility] Trans[facility] services Has provider been notified: Yes Discharge provider: Wil Byrd DO Summary Hospital Course Discharge Diagnosis: 1. Acute R ankle fracture s/p ORIF, acute, present on admission -Accidentally caught foot between doors. Likely component of underlying osteoporosis. -Orthopedic surgery Dr. Verdugo following -Patient has a number of underlying chronic and possibly acute medical co-morbidities. -TTE performed to further assess valve.?Ejection fraction 70-75%. Grade I diastolic dysfunction.? Bioprosthetic valve is well seated. 2. Acute on chronic hypoxemic respiratory failure, resolved -Suspect COPD exacerbation, continue prednisone x5 days -Patient has underlying lung cancer and on 3L chronically -XR chest without infiltrates. -now back to baseline 3L -duonebs PRN 4. History of CAD with acute demand ischemia and recent SVT -Per prior cardiology notes (most recent I have is from 2 years ago) they considered stress testing and apparently have recommended valve replacement again which the patient did not wish to pursue. Last EF was 70% that I have records for (2 years ago).? Is currently stable with echo showing during this hospitalization ejection fraction of 70-75%. -Continue ASA, statin -trops downtrending -continue metoprolol 25mg tartrate BID, hold for bradycardia 5. R lung squamous cell carcinoma, non-hodkins lymphoma -S/p chemo and radiation, was apparently not a surgical candidate for resection per outpatient notes due to lung disease. -[facility]. chronic iron deficiency anemia -Appears stable in 8's 7. history of CVA ?-Continue home asa, statin 8. history of GI bleeding -Continue home PPI BID 9. ground level fall -She has chronic dizziness when standing, documented with cardiology as long as a few years ago, symptoms are not uncommon for her.? With the occurrences of drop in blood heart rate in the OR as well as recovery, the patient is being monitored in ICU to document any temporary and paroxysmal EKG changes. -PT/OT eval recommending SNF 10. Advanced care planning ?She would want to be resuscitated if she could recover, but does not wish to be kept alive with the help of machines. Surrogate decision maker as noted below. ?Patient would be agreeable to short term SNF prior to returning home. She does not want to live in a [facility]. She would be agreeable to caretakers or nurses coming to help her at home. Hospital Course: Admitted for right ankle fracture s/p ORIF. Post-op she developed SVT for 30 seconds then started on beta susy. Also required increased O2 at 6L which was thought to be due to COPD exac so given 5 days of po prednison and eventually weaned to baseline of 3L. She required assist with PT therefore SNF was recommended. Time Spent with Patient Time spent: Greater than 30 minutes Exam Vital Signs (past 8 hours): - 11/27/21 08:00 11/27/21 05:00 11/27/21 06:00 Temperature 99.0 F Pulse Rate 82 86 89 Respiratory Rate 21 25 H 28 H Blood Pressure 100/58 L Pulse Oximetry 89 L Oxygen Delivery Method Oxygen Flow Rate 11/27/21 07:00 11/27/21 07:44 11/27/21 07:44 Temperature Pulse Rate 84 82 Respiratory Rate 25 H 20 Blood Pressure 100/58 L Pulse Oximetry 87 L Oxygen Delivery Method Oxygen Flow Rate 11/27/21 08:00 11/27/21 09:19 11/27/21 09:30 Temperature Pulse Rate 84 82 82 Respiratory Rate 23 18 Blood Pressure 100/58 L Pulse Oximetry 98 Oxygen Delivery Method Nasal Cannula Oxygen Flow Rate 3 11/27/21 10:20 11/27/21 09:00 11/27/21 10:00 Temperature Pulse Rate 83 85 94 H Respiratory Rate 23 24 Blood Pressure 88/51 L Pulse Oximetry Oxygen Delivery Method Oxygen Flow Rate 11/27/21 10:17 11/27/21 10:17 11/27/21 10:18 Temperature Pulse Rate 82 81 Respiratory Rate 27 H 24 Blood Pressure 84/48 L Pulse Oximetry Oxygen Delivery Method Oxygen Flow Rate 11/27/21 10:18 11/27/21 11:00 11/27/21 11:00 Temperature Pulse Rate 81 Respiratory Rate 28 H Blood Pressure 86/51 L 77/53 L Pulse Oximetry Oxygen Delivery Method Oxygen Flow Rate 11/27/21 11:01 11/27/21 11:01 11/27/21 11:44 Temperature Pulse Rate 81 Respiratory Rate 26 H Blood Pressure 87/54 L 116/61 Pulse Oximetry Oxygen Delivery Method Oxygen Flow Rate 11/27/21 11:44 11/27/21 12:00 11/27/21 12:00 Temperature Pulse Rate 81 82 81 Respiratory Rate 23 22 23 Blood Pressure 116/61 Pulse Oximetry Oxygen Delivery Method Oxygen Flow Rate Fraction of Inspired Oxygen 35 SaO2/FiO2 Ratio 271 Oxygen Delivery Method Nasal Cannula Oxygen Flow Rate 3 Narrative Exam Narrative: General:?elderly female, somewhat frail, no acute distress. Receiving O2 supplementation HEENT:? Normocephalic, atraumatic, extraocular muscles intact, oral pharynx is clear and mucous membranes are moist. Neck: supple and symmetric, trachea is midline, no cervical adenopathy. Negative for JVD Chest:? Normal AP diameter and contour without kyphoscoliosis, no tachypnea, equal chest rise bilaterally. Lungs:? Clear to auscultation. No wheezes or crackles. Cardio:?regular rhythm, no m/r/g. Abdomen: Soft nontender bowel sounds normal. Musculoskeletal:?R ankle postoperative dressing, general tenderness. Extremities: No edema or joint effusions. No cyanosis or clubbing. Skin:? Pale,? Warm to touch,dry and intact without rashes, ulcerations or petechiae.? Neuro:? Alert and orientated x3,? sensation diminshed bilateral feet, no gross deficits noted of cranial nerves. Psych:? Patient has a well-kept appearance, appropriate affect, mental status attitude thought context and judgment are appropriate for age. Objective Labs Result Diagrams: 11/27/21 04:42 11/27/21 04:42 Labs: Laboratory Results - last 24 hr 11/27/21 11/27/21 11/27/21 04:42 04:42 04:42 WBC 8.2 RBC 3.05 L Hgb 8.3 L Hct 24.8 L MCV 81.5 MCH 27.4 MCHC 33.6 RDW 15.6 H Plt Count 171 Neut % (Auto) 71.8 Lymph % (Auto) 12.8 L Summers % (Auto) 7.6 Eos % (Auto) 7.3 H Baso % (Auto) 0.5 Neut # (Auto) 5900 Lymph # (Auto) 1100 Summers # (Auto) 600 Eos # (Auto) 600 H Baso # (Auto) 0 Sodium 131 L Potassium 4.6 Chloride 93 L Carbon Dioxide 36 H BUN 15 Creatinine 0.58 Estimated GFR > 60 BUN/Creatinine Ratio 25.9 H Glucose 92 Calcium 8.5 TSH 8.09 H Free T4 1.29 PFSH Medical History Acute CVA (cerebrovascular accident) (2017) Anaphylactic reaction (07/31/08) Aortic stenosis Arthritis Chest pain Chronic obstructive pulmonary disease Constipation Coronary artery disease Current smoker (05/17/12) Depression Dermatitis Difficulty swallowing Diverticulosis 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) GERD (gastroesophageal reflux disease) Heart murmur History of aortic valve replacement with bioprosthetic valve (10/23/10) Hyperlipidemia Hypertension Hypothyroidism Macular degeneration Malignant neoplasm of lung Mitral valve disorder Neuropathy Nocturnal hypoxia Non Hodgkin's lymphoma Osteoarthritis (07/23/10) Osteoporosis (~2015) Peripheral neuropathy Pulmonary embolism Raynaud's disease (05/17/12) 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) Surgical History H/O total hysterectomy History of appendectomy History of cataract removal with insertion of prosthetic lens (2008) History of cholecystectomy History of lumpectomy of left breast History of lung surgery (1994) History of removal of Port-a-Cath (07/04/17) History of surgery Hx of aortic valve replacement (06/22/13) Hx of fusion of cervical spine (~03/2004) Hx of fusion of cervical spine (02/2006) Hx of hysterectomy (~04/1987) Status post cholecystectomy (08/22/09) Family History Mother Cancer Colon cancer Heart disease Father Lung cancer Brother Lung cancer Sister CVA (cerebral vascular accident) Heart disease Daughter Myocardial infarction Social History marital status: unknown household members: none Smoking Status: Former smoker Tobacco: How many years used: 50 second hand exposure: Yes alcohol intake: current substance use type: does not use Discharge Plan Discharge Plan Patient Disposition: SNF Transfer to: [facility] Discharge orders & Medications Prescriptions: New sennosides [senna] 8.6 mg Tablet 8.6 mg PO BID PRN (Reason: Constipation) Qty: 60 0RF oxycodone 5 mg Tablet 5 mg PO Q3HR PRN (Reason: Pain, Moderate (4-6)) Qty: 30 0RF enoxaparin [Lovenox] 40 mg/0.4 mL Syringe 40 mg SUBCUT DAILY 30 Days Qty: 4 0RF metoprolol tartrate 25 mg tablet 25 mg PO BID Qty: 60 0RF Continued Restasis 0.05 % dropperette 1 drop EYE-BOTH BID (DME) Disabled Parking Placard Qty: 1 0RF Dose Instruction: As directed Rx Instructions: Patient qualifies for Disabled Parking Placard multivitamin [Multiple Vitamins] 1 EACH tablet 1 tab PO DAILY Qty: 0 rosuvastatin 20 mg tablet See Rx Instructions .ROUTE .COMPLEX Qty: 90 3RF Dose Instruction: TAKE 1 TABLET AT BEDTIME Rx Instructions: TAKE 1 TABLET AT BEDTIME omeprazole 40 mg capsule,delayed release(DR/EC) 40 mg PO BID Qty: 180 3RF levothyroxine 50 mcg tablet 50 mcg PO DAILY Qty: 90 1RF gabapentin 400 mg capsule 400 mg PO BID Qty: 180 1RF Rx Instructions: Take 1 cap each am and afternoon for pain relief. mirtazapine 15 mg tablet 15 mg PO BEDTIME Qty: 90 3RF amitriptyline 50 mg tablet 50 mg PO BEDTIME Qty: 90 3RF Rx Instructions: Take 1 tab at bedtime daily for sleep. magnesium citrate Solution 150 ml PO DAILY PRN (Reason: constipation) Qty: 296 2RF Rx Instructions: Take 1/2 bottle at bedtime daily and repeat in the morning if no BM by then, as needed for constipation, no BM x4 days gabapentin 800 mg tablet 800 mg PO BEDTIME Qty: 90 3RF Rx Instructions: Take 1 tab at night for pain relief. sodium,potassium,mag sulfates 17.5-3.13-1.6 gram recon soln 177 ml PO DAILY Qty: 354 0RF Rx Instructions: Please take medication per [facility] written instructions. PreserVision AREDS-2 [id number] Capsule 1 tab PO BID Qty: 0 polyethylene glycol [phone] GM powder 17 gm PO DAILY Label Comments: 1-2 capfuls daily melatonin 10 mg Tablet 10 mg PO BEDTIME vitamin B complex Capsule 1 cap PO DAILY acetaminophen [Tylenol] 325 mg capsule 650 mg PO QID PRN (Reason: pain) Qty: 60 0RF aspirin 81 mg Tablet,Delayed Release (Dr/Ec) 81 mg PO DAILY cholecalciferol (vitamin D3) [Vitamin D3] 2,000 unit Capsule 2,000 unit PO DAILY Follow up/Referrals: Arabella Patel ARNP [Primary Care Provider] - Марина Verdugo MD [Physician] - (Two weeks for a postoperative wound check and x-rays. Patient may request an a [facility] office, if that is more convenient for her. ) Diet/Activity/Treatments Diet: Regular Activity: Otherwise postop plan will be weightbear as tolerated in boot with a walker. Elevate above the heart level as much as possible to help with swelling and incision healing. If boot uncomfortable may take it off in bed and exchange for a night splint but should wear either the boot or resting night splint to prevent Achilles contracture. Keep dressing clean dry and in place. Sutures will remain in place 2-4 weeks. Patient has a thin skin so these may in the place longer. Recommend Lovenox 4 weeks for DVT prophylaxis due to increased risks with the a immobility, and cancer [facility] Reason for rehabilitation: Post-operative therapy Rehab type: Physical therapy and Occupational therapy Visit Report/Discharge Packet Instructions: DI for Open Reduction Internal Fixation Surgery Stand Alone Forms: Surgery Discharge Discharge Data Primary Care Provider: Arabella Patel Quality VTE Deep Vein Thrombosis/Pulmonary Embolism Present on Admission: No
--- NOTE | 2021-11-27 12:19 | PT.IPTN ---
Current Diagnoses Other fracture of right lower leg, initial encounter for closed fracture (11/23/21) Surgery Performed Operation Date: 11/24/21 10:30 <No data on this case meets the specified criteria> Operation Date: 11/25/21 10:30 Actual Procedures p ORIF Ankle Fracture(Right) - Марина Verdugo MD Physical Therapy Treatment Note M2 PT-IP Current Condition Start: 11/26/21 13:35 Freq: NEEDED Status: Active Protocol: Document 11/26/21 11:55 AB (Rec: 11/26/21 13:49 AB [id number]) Physical Therapy Current Condition Current Condition Evaluation Date 11/26/21 Treatment Diagnosis R ankle fx s/p ORIF; difficulty in walking Onset Date 11/23/21 M3 PT-IP Subjective Start: 11/26/21 13:35 Freq: NEEDED Status: Active Protocol: Document 11/27/21 11:45 KS (Rec: 11/27/21 12:47 KS [id number]) Subjective Physical Therapy Visit Type Type Treatment Note Visit Start Time 11:45 Visit Stop Time 12:19 Total Visit Minutes 34 Number of MANAGER BENEFIT Visits 1 Physical Therapy Visit Comments Patient Comments agreeable to do PT M4 PT-IP Mobility and Gait Start: 11/26/21 13:35 Freq: NEEDED Status: Active Protocol: Document 11/27/21 11:45 KS (Rec: 11/27/21 12:47 KS [id number]) PT-Transfer Assessment Sit to and From Stand Sit to and from Stand Moderate Assistance,1 Person Assistance,Use of Upper Extremities Equipment Transfer Assistive Device Gait Belt,Front Wheeled Walker Orthotic/Prosthetic Devices or Brace: Yes Transfers Transfer Destination Chair Transfer Technique sit<>stand Transfer Ability Level of Assist Moderate Assistance,1 Person Assistance,Use of Upper Extremities Comments Mobility Comments Pt in chair upon arrival having care conference regarding plan for d/c. Pt initially not wanting to go to SNF, but became agreeable to try it in hopes of returning home shortly. Pt able to perform 1x10 bilateral ankle pumps, quad sets, and glute sets and 1x5 heel slides w/ assistance. Pt reported LE fatigue following exercises but agreeable to stand. Pt able to scoot forward in chair CGA and perform sit<>stand w/ FWW and Mod A w/ cues for hand placement. Pt fatigued quickly during standing but took seated rest break and then performed additional sit< >stand w/ Mod A and took two steps forwards and two steps backwards w/ FWW Mod A and cues. Pt reported fatigue and slight SOB and dizziness, O2 in 80's on 3L and RN entered to assess. Pt denied SOB when sitting. LEft in chair w/ RN in room. Gait Assessment Gait Gait Assistance Required: Moderate Assistance,1 Person Assist Distance (Feet) 2 Able to Maintain Weight Bearing Status Yes During Gait Assistive Devices Assistive Device Gait Belt,Front Wheeled Walker Orthotic/Prosthetic Devices or Brace: Yes Gait Deviations General Gait Pattern Ataxic,Decreased Stride Length ,Decreased Feet Clearance, Flexed Trunk,Step-to Gait Factors Limiting Gait Function Factors Limiting Gait Function Decreased Activity Tolerance, Decreased Sensation,Decreased Strength,Incoordination, Limited Range of Motion,Pain, Poor Balance,Poor Safety Awareness Comments Gait Comments Two steps forward and backwards w/ FWW and Mod A w/ cues. PT-Balance Assessment Sitting Balance and Reactions Static Sitting Balance Ability Good Dynamic Sitting Balance Ability Fair Standing Balance and Reactions Static Standing Balance Ability Fair Dynamic Standing Balance Ability Poor Device Used FWW M5 PT-IP Objective Assessments Start: 11/26/21 13:35 Freq: NEEDED Status: Active Protocol: Document 11/26/21 11:55 AB (Rec: 11/26/21 13:49 AB [id number]) Orientation Orientation/Cognition Level of Alertness Alert Orientation Name,Place,Situation Language Function Ability Hard of Hearing Safety Awareness Decreased Safety Awareness Memory Description Short Term Impaired Gross Range of Motion Lower Extremity ROM Impairments R ankle on walker boot Strength Lower Extremity Strength Assessment Bilaterally Impaired Comments Strength Comments LLE: 3-/5 RLE: 2+/5 Muscle Tone Muscle Tone WNL Yes M6 PT-IP Treatment Start: 11/26/21 13:35 Freq: NEEDED Status: Active Protocol: Document 11/27/21 11:45 KS (Rec: 11/27/21 12:47 KS [id number]) Physical Therapy Treatment Exercises Exercises Ankle Pumps,Gluteal Sets,Quad Sets,Heel Slides,Straight Leg Raises Education Education Provided Precautions,Weight Bearing Status,Safety Other Treatments Other Treatment Performed Discussed SNF rehab M7 PT-IP Assessment and Plan Start: 11/26/21 13:35 Freq: NEEDED Status: Active Protocol: Document 11/27/21 11:45 KS (Rec: 11/27/21 12:47 KS [id number]) PT Summary Assessment and Plan Potential Rehabilitation Potential Fair Summary Impairments Pain,ROM,Strength,Balance, Coordination,Sensation,Tone, Cognition,Bed Mobility, Transfers,Gait,Activity Tolerance Progress Towards Goals Slow Progress due to Pain,Slow Progress due to Medical Issues,Slow Progress due to Activity Tolerance Assessment Summary Pt highly motivated to return home but ultimately agrees to SNF placement as she is not strong enough or safe enoguh to return home at this time. Did progress well w/ PT today, able to complete LE exercises minimally w/ quick approach to fatigue and perform 2x sit< >Stands w/ Mod A w/ FWW and 2 steps forwards and backwards. She is high fall risk and will require SNF to improve functional mobility independence. Goals Bed Mobility Goal Minimal Assistance Transfer Goal Minimal Assistance,Front Wheeled Walker Gait Goal Minimal Assistance,Front Wheel Walker Gait Distance 25 Other Goals improve bed mobility, transfer using FWW and ambulation using FWW ~ 50 ft SBA Days to Meet Goals 10 Frequency of Treatment Frequency Of Treatment Twice a Day Treatment Plan Physical Therapy Treatment Plan Bed Mobility Training,Transfer Training,Gait Training, Therapeutic Exercise,Balance Retraining,Post Op Education, Discharge Planning,Hot or Cold Pack,Neuromuscular Re-ed, Coordination Retraining,Manual Therapy Weight Bearing Status Weight Bearing Status Weight Bear as Tolerated Allowed Weight Bearing Amount (enter % RLE WBAT with walker boot and or #) (%) use of walker (NWB if without boot/walker) Recommendations To Nursing Amount of Assist Needed 2 Person Assist Discharge Recommendations PT Discharge Recommendations SNF Rehab Equipment Needed for Home Before FWW if pt goes home Discharge Transportation Needs at Discharge Wheelchair/Cabulance
[2021-11-27 12:28] LABS: COVID19 -Nasal RAPID Negative (Negative)
[2021-11-28 07:27] LABS: HBsAg Screen Negative (Negative); Hepatitis A Antibody IgM Negative (Negative); Hepatitis B Core Antibody IgM Negative (Negative); Hepatitis C Antibody <0.1 s/co ratio (0.0-0.9)
== END 2021-11-27 13:45 | DRG 492 ==
LOC: ED 13:33 → AC 11-24 07:44 → ICU 11-25 13:00
PROVIDERS: Anesthesiology; Neuromusculoskeletal Medicine, Sports Medicine; Nurse Practitioner Family; Orthopaedic Surgery Foot and Ankle Surgery; Student in an Organized Health Care Education/Training Program; Admitting Provider Internal Medicine; Emergency Provider Emergency Medicine; PCP Nurse Practitioner; Referring Provider Emergency Medicine; Visit Provider Internal Medicine
PROC: 0SSF04Z Reposition Right Ankle Joint with Internal Fixation Device, Open Approach (ICD-10-PCS; principal; 2021-11-25 10:30)
DX: M80.071A Age-related osteoporosis with current pathological fracture, right ankle and foot, initial encounter for fracture (principal); J96.21 Acute and chronic respiratory failure with hypoxia; J44.1 Chronic obstructive pulmonary disease with (acute) exacerbation; C34.91 Malignant neoplasm of unspecified part of right bronchus or lung; I24.8 Other forms of acute ischemic heart disease; D63.0 Anemia in neoplastic disease; R00.1 Bradycardia, unspecified; I25.10 Atherosclerotic heart disease of native coronary artery without angina pectoris; E78.5 Hyperlipidemia, unspecified; K21.9 Gastro-esophageal reflux disease without esophagitis; E03.9 Hypothyroidism, unspecified; F32.A Depression, unspecified; G62.9 Polyneuropathy, unspecified; I10 Essential (primary) hypertension; Z87.891 Personal history of nicotine dependence; Z86.73 Personal history of transient ischemic attack (TIA), and cerebral infarction without residual deficits; Z20.822 Contact with and (suspected) exposure to COVID-19; Z95.2 Presence of prosthetic heart valve; Z99.81 Dependence on supplemental oxygen
CPT/HCPCS: 29505; 36415; 64450; 70450; 71045; 73562; 73590; 73610; 76000; 80048; 80053; 80074; 81001; 82550; 83690; 83735; 84439; 84443; 84484; 85025; 85379; 85610; 85730; 87635; 93005; 93010; 93306; 93970; 94640; 94760; 94762; 97110; 97162; 97530; 99284; C9803; J0690; J1170; J1200; J1650; J2250; J2405; J2704; J2920; J3010; J7613

== ENCOUNTER 2021-12-24 11:23 | Inpatient (IN) | payer MEDICARE, OTHER, SELFPAY ==
[2021-11-23 14:11] VITALS: BMI 22.6
[2021-12-24] VITALS (13 sets, daily range): BP systolic 125–178; BP diastolic 66–84; PULSE 84–100; RESP 16–18; TEMP 36.1–37.1; O2SAT 92–100; BMI 21.8
--- NOTE | 2021-12-24 12:15 | P.HP_ITS ---
History of Present Illness History of Present Illness Date Patient Seen: 12/24/21 Time Patient Seen: 14:39 Chief complaint: R ANKLE INFECTION Narrative: Fabien Xiong is a 81 year old female with PMH of CAD, AV replacement with bioprosthetic valve with high valve gradients as of 2 years ago (reportedly needing new valve per her tinner helper), COPD/emphysema with chronic hypoxic respiratory failure on 3L home O2 at night, prior CVA, HTN, HLD, hypothyroidism, right lung SCC, and non-hodkin's lymphoma who is admitted as a direct admit from ortho clinic for R ankle hardware infection requiring washout. Admitted initially on 11/23/21 for right ankle fracture and underwent ORIF. Post-op she developed SVT for 30 seconds then started on beta susy. Also required increased O2 at 6L which was thought to be due to COPD exac so given 5 days of po prednisone and eventually weaned to baseline of 3L. She required assist with PT therefore SNF was recommended. She has been at [facility] and followed up in ortho clinic today 12/24. Per patient she didn't notice her right ankle having more pain and swelling at all, and in fact was hoping to hear from ortho at her appointment that she could go home. She denies fever/chills, CP, SOB, abd pain, NV or diarrhea. 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) GERD (gastroesophageal reflux disease) Heart murmur History of aortic valve replacement with bioprosthetic valve (10/23/10) Hyperlipidemia Hypertension Hypothyroidism Macular degeneration Malignant neoplasm of lung Mitral valve disorder Neuropathy Nocturnal hypoxia Non Hodgkin's lymphoma Osteoarthritis (07/23/10) Osteoporosis (~2015) Peripheral neuropathy Pulmonary embolism Raynaud's disease (05/17/12) 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) Surgical History H/O total hysterectomy History of appendectomy History of cataract removal with insertion of prosthetic lens (2008) History of cholecystectomy History of lumpectomy of left breast History of lung surgery (1994) History of removal of Port-a-Cath (07/04/17) History of surgery Hx of aortic valve replacement (06/22/13) Hx of fusion of cervical spine (~03/2004) Hx of fusion of cervical spine (02/2006) Hx of hysterectomy (~04/1987) Status post cholecystectomy (08/22/09) Family & Social History Family History Mother Cancer Colon cancer Heart disease Father Lung cancer Brother Lung cancer Sister CVA (cerebral vascular accident) Heart disease Daughter Myocardial infarction Social History: household members none Tobacco & Substance use: Tobacco type cigarettes Smoking Status Former smoker alcohol intake current alcohol intake frequency 0-2 drinks per day Substance Use Type does not use Meds Home Medications and Allergies Home Medications Medication Instructions Recorded Confirmed Type multivitamin (Multiple Vitamins 1 tab PO DAILY ##0 01/01/17 11/23/21 History tablet) melatonin 10 mg tablet 10 mg PO BEDTIME 10/29/17 11/23/21 History polyethylene glycol 3350 17 17 gm PO DAILY 10/29/17 11/23/21 History gram/dose oral powder vit C 250 mg-vit E 90 mg-zinc 40 1 tab PO BID ##0 10/29/17 11/23/21 History mg-copper 1 [id number] capsule (PreserVision AREDS-2) Disabled Parking Placard #1 ea 05/04/18 11/23/21 Rx cyclosporine 0.05 % eye drops in a 1 drop EYE-BOTH BID 05/04/18 11/23/21 History dropperette (Restasis) aspirin 81 mg tablet,delayed 81 mg PO DAILY 01/20/19 11/23/21 History release cholecalciferol (vitamin D3) 50 2,000 unit PO DAILY 01/20/19 11/23/21 History mcg (2,000 unit) capsule (Vitamin D3) vitamin B complex 1 cap PO DAILY 04/16/20 11/23/21 History sodium,potassium,mag sulfates 17.5 177 ml PO DAILY 2 doses #354 mL 04/18/20 11/23/21 Rx gram-3.13 gram-1.6 gram oral soln rosuvastatin 20 mg tablet See Rx Instructions .Route 04/10/21 11/23/21 Rx .COMPLEX #90 tabs acetaminophen 325 mg capsule 650 mg PO QID PRN pain #60 caps 08/05/21 11/23/21 Rx (Tylenol) mirtazapine 15 mg tablet 15 mg PO BEDTIME #90 tabs 10/08/21 11/23/21 Rx gabapentin 400 mg capsule 400 mg PO BID #180 caps 10/28/21 11/23/21 Rx levothyroxine 50 mcg tablet 50 mcg PO DAILY #90 tabs 10/28/21 11/23/21 Rx omeprazole 40 mg capsule,delayed 40 mg PO BID #180 caps 10/28/21 11/23/21 Rx release amitriptyline 50 mg tablet 50 mg PO BEDTIME #90 tabs 11/05/21 11/23/21 Rx gabapentin 800 mg tablet 800 mg PO BEDTIME #90 tabs 11/19/21 11/23/21 Rx magnesium citrate 150 ml PO DAILY PRN constipation 11/19/21 11/23/21 Rx #296 mL enoxaparin 40 mg/0.4 mL 40 mg (0.4 mL) SUBCUT DAILY 30 11/27/21 Rx subcutaneous syringe (Lovenox) days #4 mL lactulose 20 gram/30 mL oral 20 g (30 mL) PO BID constipation 11/27/21 Rx solution #1,200 mL metoprolol tartrate 25 mg tablet 25 mg PO BID #60 tabs 11/27/21 Rx oxycodone 5 mg tablet 5 mg PO Q3HR PRN Pain, Moderate 11/27/21 Rx (4-6) #30 tabs sennosides 8.6 mg tablet (senna) 8.6 mg PO BID PRN Constipation #60 11/27/21 Rx tabs Allergies Allergy/AdvReac Type Severity Reaction Status Date / Time Iodinated Contrast Media Allergy Severe ANAPHYLAXIS Verified 11/19/21 11:34 [IODINATED CONTRAST MEDIA - IV DYE] ampicillin [AMPICILLIN] AdvReac Severe BLOODY Verified 11/19/21 11:34 DIARRHEA oxycodone [OXYCODONE] AdvReac Intermediate MAKES ME Verified 11/19/21 11:34 MEAN, CHANGE OF PERSONALITY adhesive [ADHESIVE] AdvReac Mild REDNESS Verified 11/19/21 11:34 Review of Systems Review of Systems Narrative: All other systems reviewed with the patient and are negative unless otherwise stated. Exam Narrative Exam Narrative: GEN: no acute distress, pleasant and comfortable HEENT: moist mucous membranes, PERRL NECK: trachea midline, no JVD CV: regular rate and rhythm, no murmurs PULM: clear bilaterally ABD: soft, nontender, nondistended, no organomegaly EXT: R ankle wrapped in guaze and con bandage, increased warmth of promixal area above bandage compared to left NEURO: awake, alert, oriented, no focal deficits Objective Labs Result Diagrams: 12/24/21 12:24 12/24/21 12:24 Assessment & Plan Assessment & Plan narrative: # right ankle s/p ORIF with concern for hardware infection -saw in ortho clinic 12/[address] Verdugo who noted increased drainage, warmth and swelling of right ankle so sent to hospital for IV abx and OR washout -orthopedic consulted and following -NPO for washout today -vanc and cefepime, add rifampin for biofilm prevention -f/u blood cultures -obtain wound cultures in OR -PT/OT eval following surgery # chronic hypoxic respiratory failure -currently on room air -uses 3 L O2 at night # severe aortic stenosis -per echo 2 years ago had high valve gradients and Cardiology recommending valve replacement although patient did not want to go through it # hypertension, chronic -continue home metoprolol # hyperlipidemia, chronic -continue home Crestor # history of CVA -continue home aspirin and statin # hypothyroidism, chronic -continue home Synthroid # insomnia -continue home Remeron and melatonin Code status is DNR. COVID negative. DVT prophylaxis with SCDs on left leg. Proxy is her daughter Kenyetta. I have reviewed home meds and used all available resources to reconcile the home meds. Time Spent With Patient Critical Care time: I spent a total of [] minutes of critical care time on this patient's care today; this time is exclusive of procedural time.
[2021-12-24 12:52] LABS: Add Manual Diff / Slide Review NO; Basophils Absolute Auto 100 /uL (0-100); Basophils Percent Auto 0.8 % (0-2); Eosinophils Absolute Auto 300 /uL (0-450); Eosinophils Percent Auto 3.7 % (2-4); Hematocrit 26.4 % (36-46); Hemoglobin 8.5 g/dL (12.0-16.0); Lymphocytes Absolute Auto 900 /uL (1100-4500); Lymphocytes Percent Auto 13.2 % (25-40); Mean Corpuscular HGB Conc 32.1 % (30-36); Mean Corpuscular Hemoglobin 24.9 PG (26-34); Mean Corpuscular Volume 77.7 fL (80-100); Monocytes Absolute Auto 700 /uL (0-900); Monocytes Percent Auto 9.5 % (3-14); Neutrophils Absolute Auto 5000 /uL (1500-7000); Neutrophils Percent Auto 72.8 % (50-75); Platelet Count 380 X10^3/uL (150-400); Red Blood Cell Count 3.39 X10^6/uL (4.0-5.2); Red Cell Distribution Width 16.7 % (11.6-14.8); White Blood Cell Count 6.9 X10^3/uL (4.5-11.0)
[2021-12-24] MEDS: OXYCODONE IR 5 MG TABLET PO ×2 (13:11→16:35)
[2021-12-24 13:12] LABS: Alanine Aminotransferase 22 IU/L (<35); Albumin 3.1 g/dL (3.5-5.0); Alkaline Phosphatase 103 U/L (38-126); Aspartate Aminotransferase 48 IU/L (14-36); BUN Creatinine Ratio 26.7 (6-22); Bilirubin Total 0.4 mg/dL (0.2-1.3); Blood Urea Nitrogen 12 mg/dL (7-17); Calcium 8.5 mg/dL (8.4-10.2); Carbon Dioxide 38 mmol/L (22-32); Chloride 89 mmol/L (98-107); Estimated Glomerular Filt Rate > 60 mL/min (>60); Globulin 3.2 g/dL (1.7-4.1); Glucose 94 mg/dL (80-110); HEMOLYSIS < 15 (0-50); Potassium 3.5 mmol/L (3.4-5.1); Sodium 133 mmol/L (137-145); Total Protein 6.3 g/dL (6.3-8.2)
[2021-12-24] MEDS: rifAMPin 300 MG CAPSULE 600 MG PO (13:12)
--- NOTE | 2021-12-24 13:17 | PT-IP ANOTE ---
PT eduardoal received dated for tomorrow. hospitalist stated that order is for tomorrow after ankle I&D. Will need orders from ortho MD for weight bearing status after sx. will f/u tomorrow.
[2021-12-24 13:28] LABS: COVID19 -Nasal RAPID Negative (Negative)
--- NOTE | 2021-12-24 13:28 | OT.IPNOTE ---
TO see pt tomorrow as to have an I and D of right ankle today.
[2021-12-24] MEDS: VANCOMYCIN 750 MG/150 ML PIGGYBACK 150 MG IV (14:48)
[2021-12-24] MEDS: SODIUM CHLORIDE 0.9% 250 ML 21 ML IV (14:48)
[2021-12-24] MEDS: ACETAMINOPHEN 325 MG TABLET 650 MG PO (14:57)
--- NOTE | 2021-12-24 15:00 | PC.ADMIT ---
[email or web address] Admission Note: The patient,Fabien Xiong,81 y/o, was given written information regarding hospital policies, unit procedures and contact persons. Patient's smoking status: Former smoker. Vital Signs - 8 hr 12/24/21 11:55 Temperature 97.5 F L Pulse Rate 84 Respiratory Rate 18 Blood Pressure 128/78 Pulse Oximetry 94 Oxygen Flow Rate 0 Pt arrived to floor at 1155, direct admit for right foot/ankle infection from a prior surgery. Pt will be going to surgery for inspection and surgery. Pt has 6/10 pain from right ankle/foot. Pedal pulse are bilaterally equal, 4/5, cap refill <2 seconds. and CMS intact. Pt oriented to call light and denies any chest pain at this time. VS WNL, on room air. IV in left FA.
[2021-12-24] MEDS: CEFEPIME 2 GM in SODIUM CHLORIDE 0.9% 100 ML IV ×2 (16:31→23:58)
--- NOTE | 2021-12-24 16:56 | P.HP_ITS ---
History of Present Illness History of Present Illness Date Patient Seen: 12/24/21 Time Patient Seen: 10:00 Chief complaint: R ANKLE INFECTION Narrative: A 81-year-old female with multiple medical comorbidities including cancer and emphysema and aortic valve replacement who had a syncopal like episode and sustained a right trimalleolar ankle fracture. She was seen [facility] she had an ORIF on 12/05/2021. She was discharged to a senior living facility. She came in today for follow-up. She had sutures retained for swelling last time but comes in today day sank pain is been worse and notes was sleeping on a dressing change yesterday. Does not recall any dressing changes before yesterday. She has not had a fever. 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) GERD (gastroesophageal reflux disease) Heart murmur History of aortic valve replacement with bioprosthetic valve (10/23/10) Hyperlipidemia Hypertension Hypothyroidism Macular degeneration Malignant neoplasm of lung Mitral valve disorder Neuropathy Nocturnal hypoxia Non Hodgkin's lymphoma Osteoarthritis (07/23/10) Osteoporosis (~2015) Peripheral neuropathy Pulmonary embolism Raynaud's disease (05/17/12) 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) Surgical History H/O total hysterectomy History of appendectomy History of cataract removal with insertion of prosthetic lens (2008) History of cholecystectomy History of lumpectomy of left breast History of lung surgery (1994) History of removal of Port-a-Cath (07/04/17) History of surgery Hx of aortic valve replacement (06/22/13) Hx of fusion of cervical spine (~03/2004) Hx of fusion of cervical spine (02/2006) Hx of hysterectomy (~04/1987) Status post cholecystectomy (08/22/09) Family & Social History Family History Mother Cancer Colon cancer Heart disease Father Lung cancer Brother Lung cancer Sister CVA (cerebral vascular accident) Heart disease Daughter Myocardial infarction Social History: household members none Prior Living Arrangements House Safety & Behavioral: Feels Safe in Current Yes Environment Been Physically Hurt or No Threatened By a Person Tobacco & Substance use: Tobacco type cigarettes Smoking Status Former smoker Smoking packs per day 1 alcohol intake current alcohol intake frequency holiday/special occasion Substance Use Type does not use Meds Home Medications and Allergies Home Medications Medication Instructions Recorded Confirmed Type multivitamin (Multiple Vitamins 1 tab PO DAILY ##0 01/01/17 11/23/21 History tablet) melatonin 10 mg tablet 10 mg PO BEDTIME 10/29/17 11/23/21 History polyethylene glycol 3350 17 17 gm PO DAILY 10/29/17 11/23/21 History gram/dose oral powder vit C 250 mg-vit E 90 mg-zinc 40 1 tab PO BID ##0 10/29/17 11/23/21 History mg-copper 1 [id number] capsule (PreserVision AREDS-2) Disabled Parking Placard #1 ea 05/04/18 11/23/21 Rx cyclosporine 0.05 % eye drops in a 1 drop EYE-BOTH BID 05/04/18 11/23/21 History dropperette (Restasis) aspirin 81 mg tablet,delayed 81 mg PO DAILY 01/20/19 11/23/21 History release cholecalciferol (vitamin D3) 50 2,000 unit PO DAILY 01/20/19 11/23/21 History mcg (2,000 unit) capsule (Vitamin D3) vitamin B complex 1 cap PO DAILY 04/16/20 11/23/21 History sodium,potassium,mag sulfates 17.5 177 ml PO DAILY 2 doses #354 mL 04/18/20 11/23/21 Rx gram-3.13 gram-1.6 gram oral soln rosuvastatin 20 mg tablet See Rx Instructions .Route 04/10/21 11/23/21 Rx .COMPLEX #90 tabs acetaminophen 325 mg capsule 650 mg PO QID PRN pain #60 caps 08/05/21 11/23/21 Rx (Tylenol) mirtazapine 15 mg tablet 15 mg PO BEDTIME #90 tabs 10/08/21 11/23/21 Rx gabapentin 400 mg capsule 400 mg PO BID #180 caps 10/28/21 11/23/21 Rx levothyroxine 50 mcg tablet 50 mcg PO DAILY #90 tabs 10/28/21 11/23/21 Rx omeprazole 40 mg capsule,delayed 40 mg PO BID #180 caps 10/28/21 11/23/21 Rx release amitriptyline 50 mg tablet 50 mg PO BEDTIME #90 tabs 11/05/21 11/23/21 Rx gabapentin 800 mg tablet 800 mg PO BEDTIME #90 tabs 11/19/21 11/23/21 Rx magnesium citrate 150 ml PO DAILY PRN constipation 11/19/21 11/23/21 Rx #296 mL enoxaparin 40 mg/0.4 mL 40 mg (0.4 mL) SUBCUT DAILY 30 11/27/21 Rx subcutaneous syringe (Lovenox) days #4 mL lactulose 20 gram/30 mL oral 20 g (30 mL) PO BID constipation 11/27/21 Rx solution #1,200 mL metoprolol tartrate 25 mg tablet 25 mg PO BID #60 tabs 11/27/21 Rx oxycodone 5 mg tablet 5 mg PO Q3HR PRN Pain, Moderate 11/27/21 Rx (4-6) #30 tabs sennosides 8.6 mg tablet (senna) 8.6 mg PO BID PRN Constipation #60 11/27/21 Rx tabs Allergies Allergy/AdvReac Type Severity Reaction Status Date / Time Iodinated Contrast Media Allergy Severe ANAPHYLAXIS Verified 11/19/21 11:34 [IODINATED CONTRAST MEDIA - IV DYE] ampicillin [AMPICILLIN] AdvReac Severe BLOODY Verified 11/19/21 11:34 DIARRHEA oxycodone [OXYCODONE] AdvReac Intermediate MAKES ME Verified 11/19/21 11:34 MEAN, CHANGE OF PERSONALITY adhesive [ADHESIVE] AdvReac Mild REDNESS Verified 11/19/21 11:34 Review of Systems Review of Systems Narrative: Increased pain around the right ankle no fevers chills nausea vomiting or shortness of breath ROS: Yes All systems reviewed with the patient and are negative except as otherwise documented Exam Vital Signs (past 8 hours): - 12/24/21 11:55 Temperature 97.5 F L Pulse Rate 84 Respiratory Rate 18 Blood Pressure 128/78 Pulse Oximetry 94 Oxygen Flow Rate 0 Oxygen Flow Rate 0 Narrative Exam Narrative: General exam alert and oriented patient no acute distress. HEENT exam normocephalic atraumatic. Respiratory exam lungs clear to auscultation bilaterally. Heart regular rate and rhythm. Gait is not evaluated today she is in a wheelchair. Right lower extremity examination demonstrates grossly normal alignment but there is increased swelling and weeping posterior laterally around the ankle and some central incision necrosis laterally and medially laterally this is centrally over the area of the interlocking screws. There is fibrinous tissue. The area of skin breakdown was not there prior. There is erythema about the ankle and tenderness to palpation the dark ready color may be some component of hematoma but nothing draining. There is diffuse weeping. There is no ascending cellulitis above 8 cm from the ankle. There is have fibrinous exudate and areas of wound necrosis. There is no gross purulence however. Sensation is grossly intact to light touch. There is a palpable dorsalis pedis pulse. Objective Labs Result Diagrams: 12/24/21 12:24 12/24/21 12:24 Labs: Laboratory Results - last 24 hr 12/24/21 12/24/21 12/24/21 12:24 12:24 12:50 WBC 6.9 RBC 3.39 L Hgb 8.5 L Hct 26.4 L MCV 77.7 L MCH 24.9 L MCHC 32.1 RDW 16.7 H Plt Count 380 Neut % (Auto) 72.8 Lymph % (Auto) 13.2 L [place] % (Auto) 9.5 Eos % (Auto) 3.7 Baso % (Auto) 0.8 Neut # (Auto) 5000 Lymph # (Auto) 900 L [place] # (Auto) 700 Eos # (Auto) 300 Baso # (Auto) 100 Sodium 133 L Potassium 3.5 Chloride 89 L Carbon Dioxide 38 H BUN 12 Creatinine 0.45 L Estimated GFR > 60 BUN/Creatinine Ratio 26.7 H Glucose 94 Calcium 8.5 Total Bilirubin 0.4 AST 48 H ALT 22 Alkaline Phosphatase 103 Total Protein 6.3 Albumin 3.1 L Globulin 3.2 Albumin/Globulin Ratio 1.0 SARS-CoV-2 (PCR) Negative Assessment & Plan Assessment and plan (1) Trimalleolar fracture of ankle, closed: Qualifiers: Encounter type: subsequent encounter Laterality: right Status: Acute (2) Infection of lower extremity associated with hardware: Status: Acute Plan Patient has evidence of deep hardware infection. Concerning areas of necrosis on the medial and lateral aspects. She has extensive edema and weeping that is dramatically different from her visit 2 weeks ago. She denies any fevers but concerns for deep infection. Recommended patient to the hospital with IV antibiotics and surgical debridement. Recommend optimization and admission to the hospitalist team due to her multiple medical comorbidities and irrigation debridement of the wounds. Discussed with her that given her tenuous soft tissues she may need additional procedures and she may need wound coverage. We discussed the infection cannot be eradicated she could also be at risk for amputation at some point. The goal tonight would be to irrigate and likely place wet-to-dry dressings. I think her skin may be too friable for a wound VAC . She will be maintained on IV antibiotics. Communication was had with the admitting hospitalist team and patient was directed to proceed to the hospital. The risks and benefits of the procedure have been discussed with the patient and given the opportunity to ask questions. The risks of surgery include but are not limited to infection, malunion, nonunion, persistence of pain, damage to nerves and blood vessels, posttraumatic arthritis, DVT, PE, coardiopulmonary complications and . The patient expressed a thorough understanding of the risks and benefits of surgery and has elected to proceed. Consent was signed in the office today. COVID-19 COVID-19 status: Negative Time Spent With Patient Time with patient: 30 to 49 minutes with 50% spent counseling/coordinating care Critical Care time: I spent a total of [] minutes of critical care time on this patient's care today; this time is exclusive of procedural time. Quality VTE Deep Vein Thrombosis/Pulmonary Embolism Present on Admission: No
--- NOTE | 2021-12-24 17:01 | PC.NURSE ---
Day shift: Pt off unit for procedure at approx 1700.
[2021-12-24] MEDS: LACTATED RINGERS 1,000 ML 42 ML IV (17:15)
--- NOTE | 2021-12-24 18:28 | SUR.OPER ---
Supine on padded OR bed, head on pillow, arms secured on padded arm boards at <90 degrees abduction, legs uncrossed, safety belt at lower torso, tape over blanket over left lower leg. folded blanket bump under right hip and lower leg, taped to bed. Right leg in control of the Surgeon.
[2021-12-24] MEDS: BUPIVACAINE 0.25% (PF) 30 ML, EPINEPHrine 0.15 MG INJ (18:36)
--- NOTE | 2021-12-24 19:01 | PM.OP.1 ---
Operative Date/Time/Diagnoses Date of procedure: 12/24/21 Time of procedure: 19:01 Pre-op diagnosis: Right trimalleolar ankle fracture with infection and hardware complicating infection. Post-op diagnosis: same Procedure & Clinicians Procedure: Irrigation debridement and excisional debridement right ankle 95652 lateral side Irrigation debridement excisional debridement right ankle 35875 medial side separate site-59 Same procedure as scheduled: Yes Indications: Patient is a 81-year-old female with multiple medical comorbidities including history aortic valve replacement in cancer who fell and sustained a unstable right trimalleolar ankle fracture several weeks ago. She had an ankle ORIF. She presented to clinic today for a wound check and was noted to have necrosis her medial and lateral incisions and was admitted to the hospital for suspicion of deep infection. She was indicated for irrigation debridement and IV antibiotics and inpatient admission. The risks and benefits of the procedure have been discussed with the patient and given the opportunity to ask questions. The risks of surgery include but are not limited to infection, malunion, nonunion, persistence of pain, damage to nerves and blood vessels, posttraumatic arthritis, DVT, PE, coardiopulmonary complications and . The patient expressed a thorough understanding of the risks and benefits of surgery and has elected to proceed. Consent was signed in the office today. Surgeon: Марина Verdugo Click Yes if Unassisted: Yes Anesthesia Type: General and Local Operative Notes Findings: Lateral incision full-thickness necrosis approximately 1 cm x 1 cm area no exposed bone. Surrounding soft tissues sleepy and reactive. No gross purulence. Fibrinous exudate and tissue excisionally debrided. Medial incision with full-thickness necrosis at site of medial malleolus fracture. A deep an incision a palpable 1 screw head from medial malleolus. Full-thickness. Fibrinous and necrotic tissue excisionally debrided. No gross purulence. Closure Type: not applicable Specimen(s): other (Microbiology) Estimated Blood Loss (mL): 10 Blood products transfused: none Tourniquet time (min): 0 Procedure in detail: Patient was seen in the preoperative area the site of surgery marked informed consent confirmed. She was brought back to the operating room by the anesthesia team positioned supine on operative table. General anesthetic was administered. All bony prominences well padded. Well-padded bump was placed. The right lower extremities prepped and draped a standard sterile fashion formal time-out procedure was performed confirming the patient's side and site of surgery administration of appropriate antibiotics. These were her scheduled antibiotics and vancomycin was just concluded prior to entry into the room. All were in agreement. Attention was turned the right lower extremity. The open wound on the lateral side was 1st addressed. This was sharply excisionally debrided around the edges of the 1 x 1 cm circular wound and fibrin is tissue was sharply debrided with the knife followed by the curette. Deep cultures were sent for microbiology. Then attention was turned to the medial side and a similar debridement of the full-thickness skin wound was undertaken excising the necrotic tissue and fibrinous tissue. This was approximately 2 cm x 1 cm. The surrounding tissues around the wounds was extremely friable and delicate. Deep in the medial incision the screw head was palpable this was advanced back. Once excisional debridement was completed the wounds were copiously irrigated with 6 L of sterile saline using cysto tubing medially and laterally. Then the drapes and gloves were changed. One PDS suture was used medially to close deep tissues and a few nylon approximated the proximal part of the medial incision. The distal part was not closable. The skin was friable and not felt to be a minimal to the adhesive from a wound VAC therefore a wet-to-dry dressing was placed. Additionally medial the 1 x 1 cm circular wound was not closable. This was packed with a wet to dry. Additional burn fluffs were placed and Xeroform on the we P a friable surrounding tissue. A soft dressing with Kerlix and Vinicio wrap was applied. Anesthetic was terminated. Drapes removed the patient was taken the PACU in good condition. There no immediate complications from this procedure. All counts were correct Complications: none Post-operative Condition: stable Disposition: PACU Plan for aftercare: She will be admitted to the floor she will remain on scheduled antibiotics these will be broad spectrum and narrowed as indicated. Appreciate internal medicine hospitalist help with this highly medically complex patient. She will be weightbear as tolerated in the soft dressing. I will keep her out of the walking boot for now as I do not want any extra pressure on her skin. She should use a walker for all ambulation. And this should be minimal just up and around the room into the restroom or with therapy. On Wednesday she will start wet to dry dressing changes b.i.d.. I will participate in the 1st check and based on this assessment we will plan for either continued wet to dries or possible plan for attempted conversion to outpatient wound VAC with the wound care center if her surrounding tissues become amenable. Due to her medical comorbidities I do anticipate slow and challenging soft tissue healing. Our goal will be to maintain hardware through the treatment as her fractures are not yet healed. Anticipate outpatient IV antibiotics likely as well and would be narrowed based on cultures. Okay to restart Lovenox tomorrow for DVT prophylaxis
[2021-12-24] MEDS: ATORVASTATIN 20 MG TABLET 40 MG PO (20:54)
[2021-12-24] MEDS: PANTOPRAZOLE DR 40 MG TABLET PO (20:55)
[2021-12-24] MEDS: MELATONIN 3 MG TABLET 9 MG PO (20:55)
[2021-12-24] MEDS: MIRTAZAPINE 15 MG TABLET PO (20:55)
[2021-12-24] MEDS: GABAPENTIN 400 MG CAPSULE 800 MG PO (20:55)
[2021-12-24] MEDS: METOPROLOL IR 25 MG TABLET PO (20:55)
[2021-12-24] MEDS: SODIUM CHLORIDE 0.9% FLUSH 10 ML IV ×2 (20:56→23:58)
--- NOTE | 2021-12-24 22:47 | PC.NURSE ---
Returned to floor from PACU at 1930. Patient is alert and oriented. Breath sounds CTA with sat of 98% on oxygen at 3L/min per NC as per home regimen; on continuous oximetry. HRR but BP elevated at 156/83; was given Metoprolol this evening. Denies nausea. BT hypoactive and has not yet passed flatus. Up to BSC @ 2220 with walker and 2 assists but patient doing well, although slow, with mobility so back to bed w/1 assist. Was able to void 500cc and denied dysuria. Is able to move herself in bed. Calf SCD applied to left leg upon return from PACU. Dressing to right foot is CDI and wrapped with con. CMS is intact. Denies any pain. Fall risk score is high and bed alarm is activated.
[2021-12-25] MEDS: VANCOMYCIN 750 MG/150 ML PIGGYBACK 150 MG IV ×2 (02:07→13:04)
[2021-12-25 02:30] VITALS: BP 134/72; PULSE 89; RESP 17; TEMP 37; O2SAT 98
[2021-12-25] MEDS: OXYCODONE IR 5 MG TABLET PO ×3 (06:28→22:46)
[2021-12-25 07:07] LABS: Add Manual Diff / Slide Review NO; Basophils Absolute Auto 100 /uL (0-100); Basophils Percent Auto 0.8 % (0-2); Eosinophils Absolute Auto 500 /uL (0-450); Eosinophils Percent Auto 6.5 % (2-4); Hematocrit 24.9 % (36-46); Hemoglobin 8.2 g/dL (12.0-16.0); Lymphocytes Absolute Auto 900 /uL (1100-4500); Lymphocytes Percent Auto 13.2 % (25-40); Mean Corpuscular HGB Conc 32.7 % (30-36); Mean Corpuscular Hemoglobin 25.3 PG (26-34); Mean Corpuscular Volume 77.3 fL (80-100); Monocytes Absolute Auto 700 /uL (0-900); Monocytes Percent Auto 9.4 % (3-14); Neutrophils Absolute Auto 4900 /uL (1500-7000); Neutrophils Percent Auto 70.1 % (50-75); Platelet Count 366 X10^3/uL (150-400); Red Blood Cell Count 3.23 X10^6/uL (4.0-5.2); Red Cell Distribution Width 16.9 % (11.6-14.8)
[2021-12-25 07:17] LABS: BUN Creatinine Ratio 26.8 (6-22); Blood Urea Nitrogen 11 mg/dL (7-17); Calcium 7.9 mg/dL (8.4-10.2); Carbon Dioxide 36 mmol/L (22-32); Chloride 91 mmol/L (98-107); Estimated Glomerular Filt Rate > 60 mL/min (>60); Glucose 78 mg/dL (80-110); HEMOLYSIS < 15 (0-50); Potassium 3.7 mmol/L (3.4-5.1); Sodium 130 mmol/L (137-145)
--- NOTE | 2021-12-25 08:00 | P.PN_ITS ---
Subjective Subjective Date Patient Seen: 12/25/21 Time Patient Seen: 10:00 Interval history: Underwent washout of right ankle hardware last night. Patient having no pain at rest but some with walking. Currently feeling well. Exam Vital Signs (past 8 hours): - 12/25/21 02:30 Temperature 98.6 F Pulse Rate 89 Respiratory Rate 17 Blood Pressure 134/72 Pulse Oximetry 98 Oxygen Flow Rate 3 Oxygen Delivery Method Nasal Cannula Oxygen Flow Rate 3 Narrative Exam Narrative: GEN: no acute distress, pleasant and comfortable HEENT: moist mucous membranes, PERRL NECK: trachea midline, no JVD CV: regular rate and rhythm, no murmurs PULM: clear bilaterally ABD: soft, nontender, nondistended, no organomegaly EXT: R ankle wrapped in gauze and con bandage NEURO: awake, alert, oriented, no focal deficits Objective Labs Result Diagrams: 12/25/21 06:55 12/25/21 06:55 Labs: Laboratory Results - last 24 hr 12/24/21 12/24/21 12/24/21 12:24 12:24 12:50 WBC 6.9 RBC 3.39 L Hgb 8.5 L Hct 26.4 L MCV 77.7 L MCH 24.9 L MCHC 32.1 RDW 16.7 H Plt Count 380 Neut % (Auto) 72.8 Lymph % (Auto) 13.2 L [place] % (Auto) 9.5 Eos % (Auto) 3.7 Baso % (Auto) 0.8 Neut # (Auto) 5000 Lymph # (Auto) 900 L [place] # (Auto) 700 Eos # (Auto) 300 Baso # (Auto) 100 Sodium 133 L Potassium 3.5 Chloride 89 L Carbon Dioxide 38 H BUN 12 Creatinine 0.45 L Estimated GFR > 60 BUN/Creatinine Ratio 26.7 H Glucose 94 Calcium 8.5 Total Bilirubin 0.4 AST 48 H ALT 22 Alkaline Phosphatase 103 Total Protein 6.3 Albumin 3.1 L Globulin 3.2 Albumin/Globulin Ratio 1.0 SARS-CoV-2 (PCR) Negative 12/25/21 12/25/21 06:55 06:55 WBC 7.0 RBC 3.23 L Hgb 8.2 L Hct 24.9 L MCV 77.3 L MCH 25.3 L MCHC 32.7 RDW 16.9 H Plt Count 366 Neut % (Auto) 70.1 Lymph % (Auto) 13.2 L [place] % (Auto) 9.4 Eos % (Auto) 6.5 H Baso % (Auto) 0.8 Neut # (Auto) 4900 Lymph # (Auto) 900 L [place] # (Auto) 700 Eos # (Auto) 500 H Baso # (Auto) 100 Sodium 130 L Potassium 3.7 Chloride 91 L Carbon Dioxide 36 H BUN 11 Creatinine 0.41 L Estimated GFR > 60 BUN/Creatinine Ratio 26.8 H Glucose 78 L Calcium 7.9 L Total Bilirubin AST ALT Alkaline Phosphatase Total Protein Albumin Globulin Albumin/Globulin Ratio SARS-CoV-2 (PCR) [facility] Medical History Acute CVA (cerebrovascular accident) (2017) Anaphylactic reaction (07/31/08) Aortic stenosis Arthritis Chest pain Chronic obstructive pulmonary disease Constipation Coronary artery disease Current smoker (05/17/12) Depression Dermatitis Difficulty swallowing Diverticulosis 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) GERD (gastroesophageal reflux disease) Heart murmur History of aortic valve replacement with bioprosthetic valve (10/23/10) Hyperlipidemia Hypertension Hypothyroidism Macular degeneration Malignant neoplasm of lung Mitral valve disorder Neuropathy Nocturnal hypoxia Non Hodgkin's lymphoma Osteoarthritis (07/23/10) Osteoporosis (~2015) Peripheral neuropathy Pulmonary embolism Raynaud's disease (05/17/12) 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) Surgical History H/O total hysterectomy History of appendectomy History of cataract removal with insertion of prosthetic lens (2008) History of cholecystectomy History of lumpectomy of left breast History of lung surgery (1994) History of removal of Port-a-Cath (07/04/17) History of surgery Hx of aortic valve replacement (06/22/13) Hx of fusion of cervical spine (~03/2004) Hx of fusion of cervical spine (02/2006) Hx of hysterectomy (~04/1987) Status post cholecystectomy (08/22/09) Family History Mother Cancer Colon cancer Heart disease Father Lung cancer Brother Lung cancer Sister CVA (cerebral vascular accident) Heart disease Daughter Myocardial infarction Social History marital status: unknown household members: none Smoking Status: Former smoker Tobacco: How many years used: 50 second hand exposure: Yes alcohol intake: current substance use type: does not use Assessment & Plan Assessment & Plan narrative: # right ankle s/p ORIF with concern for hardware infection -saw in ortho clinic 12/[address] Verdugo who noted increased drainage, warmth and swelling of right ankle so sent to hospital for IV abx and OR washout -underwent washout with Dr. Verdugo ortho on 12/24 with debridement of necrotic tissue -vanc and cefepime, rifampin for biofilm prevention -blood cultures NGTD -wound cultures in OR pending -PT/OT eval following surgery # chronic hypoxic respiratory failure -secondary to COPD -uses 3 L O2 at night # severe aortic stenosis -per echo 2 years ago had high valve gradients and Cardiology recommending valve replacement although patient did not want to go through it # hypertension, chronic -continue home metoprolol # hyperlipidemia, chronic -continue home Crestor # history of CVA -continue home aspirin and statin # hypothyroidism, chronic -continue home Synthroid # insomnia -continue home Remeron and melatonin Code status is DNR. COVID negative. DVT prophylaxis with SCDs on left leg. Proxy is her daughter Kenyetta. I have reviewed home meds and used all available resources to reconcile the home meds. Dispo: 1-2 days likely to SNF pending abx regimen and culture results. Time Spent With Patient Critical Care time: I spent a total of [] minutes of critical care time on this patient's care today; this time is exclusive of procedural time. Quality VTE Deep Vein Thrombosis/Pulmonary Embolism Present on Admission: No
[2021-12-25] MEDS: CEFEPIME 2 GM in SODIUM CHLORIDE 0.9% 100 ML IV ×2 (08:02→14:42)
[2021-12-25 08:20] VITALS: BP 152/71; PULSE 102; RESP 18; TEMP 36.9; O2SAT 97
[2021-12-25 08:45] VITALS: O2SAT 97
[2021-12-25] MEDS: ENOXAPARIN 40 MG/0.4 ML SYRINGE SUBCUT (09:13)
[2021-12-25] MEDS: SODIUM CHLORIDE 0.9% FLUSH 10 ML IV ×2 (09:14→20:30)
[2021-12-25] MEDS: rifAMPin 300 MG CAPSULE 600 MG PO (09:14)
[2021-12-25] MEDS: PANTOPRAZOLE DR 40 MG TABLET PO ×2 (09:14→20:29)
[2021-12-25] MEDS: METOPROLOL IR 25 MG TABLET PO ×2 (09:14→20:30)
[2021-12-25] MEDS: LEVOTHYROXINE 50 MCG TABLET PO (09:14)
[2021-12-25] MEDS: GABAPENTIN 400 MG CAPSULE PO ×2 (09:16→14:19)
--- NOTE | 2021-12-25 09:22 | CM.DANOTE ---
Addendum entered by Roberta Armijo R.N. 12/25/21 13:08: Was informed that patient's daughter, Kenyetta Chappell, wanted to speak to this DC Drag Down. Have met patient and daughter before, at last hospital stay. Patient's daughter resides in [place]. She was concerned that [facility] may not hold bed for patient. Let her know that this DC Drag Down had spoken to Sowmya this morning, and did not seem to be a problem with bed hold. Also, she had a bill from [facility] for $583.00 for services at the end of November, that she was concerned about. Called August, Dhara had the phone for August. Dhara gave this DC Drag Down the extension for billing, and encouraged daughter to call the number. When this DC Drag Down had spoken to daughter, she mentioned, that Dr. Verdugo indicated that patient may be here for the weekend, due to pending cultures. Let Dhara know this as well. She will give information to August. Original Note: DCP: Case received, EMR reviewed and met with patient. Introduced self and role. Was able to obtain information regarding patient's baseline activity status prior to hospitalization, as well as her current living situation. DCP assessment completed with information currently available. Patient is a 81 year old female who admitted yesterday morning to the care of the hospitalist/orthopedic team. PCP: EDDIE Cheema. Payer: confirmed: Medicare/[employer]. Patient came to the hospital via private vehicle from [facility]. Patient had gone to her orthopedic appointment in the clinic, post surgery appointment, and was hoping to be cleared for home. During the appointment, there was concern for hardware infection. She was scheduled for a washout (I&D), secondary to having warmth and swelling of her right ankle. Confirmed with August at [facility] that patient is still with them for rehab. Met with patient in her room. She was here last November due to a ground level fall, and ended up going to [facility] for rehab. Prior to this, patient has been living alone, she does have a daughter, Kenyetta, that resides in [place]. Patient had originally wanted to go home after last hospital visit, but due to her needs, and lack of mobility, went to [facility]. Patient indicated that she has been using her walker at [facility]. P: DCP to continue to follow. Patient most likely will need to return back to [facility] for more rehab. P.T, and O.T. are currently pending. Roberta Armijo RN/Director Of Special Services Discharge Planning/Care Management CM Discharge Assessment Start: 12/25/21 09:17 Freq: Status: Active Protocol: Document 12/25/21 09:17 (Rec: 12/25/21 09:19 [id number]) Discharge Planning Assessment Assigned Motor Vehicle Field Representative Roberta Armijo RN/Director Of Special Services Advance Directives? Yes Advance Directives on File No History Provided By Patient,Medical Record Prior Living Arrangements House Household Members none Comment Patient is currently at [facility] for rehab Type of transporation used prior to Relies on Others admit Willing to Return to Facility? Yes Independent with ADL's Yes Is patient alert and oriented? Yes Needs Assistance With Meal Prep,Toileting,Managing Medications,Home Chores / Shopping Caregiver for Another No DME Already Rented / Owned FWW / Walker Patient/Family Preference Halfway Facility,Home with Home Health Barriers to Discharge No Comment As long as patient is willing to return to [facility]. Discharge Plan Halfway Facility Transportation Arrangement Facility Referrals Initiated Other Additional Comment Patient is currently at [facility] from last hospital stay. Whiteboard Updated in Patient Room with Yes name and ext. # of Motor Vehicle Field Representative Review Status In Process Next Review Type Continued Stay Review
--- NOTE | 2021-12-25 09:35 | PT.IIE ---
Current Diagnoses Displaced trimalleolar fracture of unspecified lower leg, initial encounter for closed fracture (12/24/21) Infection and inflammatory reaction due to other internal orthopedic prosthetic devices, implants and grafts, initial encounter (12/24/21) Surgery Performed Operation Date: 12/24/21 17:30 Actual Procedures p I&D ankle(Right) - Марина Verdugo MD Surgical History (Last Reviewed 12/24/21 @ 16:57 by Марина Verdugo MD) H/O total hysterectomy History of appendectomy History of cataract removal with insertion of prosthetic lens (2008) History of cholecystectomy History of lumpectomy of left breast History of lung surgery (1994) History of removal of Port-a-Cath (07/04/17) History of surgery Hx of aortic valve replacement (06/22/13) Hx of fusion of cervical spine (~03/2004) Hx of fusion of cervical spine (02/2006) Hx of hysterectomy (~04/1987) Status post cholecystectomy (08/22/09) Medical History (Last Reviewed 12/24/21 @ 16:57 by Марина Verdugo MD) Acute CVA (cerebrovascular accident) (2017) Anaphylactic reaction (07/31/08) Aortic stenosis Arthritis Chest pain Chronic obstructive pulmonary disease Constipation Coronary artery disease Current smoker (05/17/12) Depression Dermatitis Difficulty swallowing Diverticulosis 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) GERD (gastroesophageal reflux disease) Heart murmur History of aortic valve replacement with bioprosthetic valve (10/23/10) Hyperlipidemia Hypertension Hypothyroidism Macular degeneration Malignant neoplasm of lung Mitral valve disorder Neuropathy Nocturnal hypoxia Non Hodgkin's lymphoma Osteoarthritis (07/23/10) Osteoporosis (~2015) Peripheral neuropathy Pulmonary embolism Raynaud's disease (05/17/12) 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) Physical Therapy Inpatient Evaluation/Re-Eval M1 PT/OT-IP Prior Functional Status Start: 12/25/21 12:55 Freq: NEEDED Status: Active Protocol: Document 12/25/21 09:35 AB (Rec: 12/25/21 13:47 AB [id number]) Medical Review Prior Functional Status Medical History Reviewed Yes Communication able to make needs known Mobility and Gait pt stated that she fractured her R ankle ~ 1 1/2 months ago and has been staying on a SNF since then. Prior to ankle fracture, pt is independent with all mobilities and ambulation without AD. Social History Household Members none Living Arrangements House Number of Floors (Floors) Two Floors Number of Stairs To Enter/Railing? pt stays on main level of the house no steps to enter Home Environment Standard Height Toilet,Walk in Shower,Built-In Shower Seat Home Equipment Four Wheel Walker,Manual Wheelchair,Hand Held Shower, Grab Bars Near Toilet,Grab Bars In Shower Additional Social History Comment pt has an adjustable bed M2 PT-IP Current Condition Start: 12/25/21 12:55 Freq: NEEDED Status: Active Protocol: Document 12/25/21 09:35 AB (Rec: 12/25/21 13:47 AB [id number]) Physical Therapy Current Condition Current Condition Evaluation Date 12/25/21 Treatment Diagnosis R ankle ORIF s/p I&D; difficulty in walking Onset Date 12/24/21 M3 PT-IP Subjective Start: 12/25/21 12:55 Freq: NEEDED Status: Active Protocol: Document 12/25/21 09:35 AB (Rec: 12/25/21 13:47 AB [id number]) Subjective Physical Therapy Visit Type Type Initial Evaluation Visit Start Time 09:35 Visit Stop Time 10:25 Total Visit Minutes 50 Number of TOMOGRAPHY TECHNOLOGIST Visits 0 Physical Therapy Visit Comments Patient Comments agreeable to do PT Therapy Pain Assessment Pain When Pain Assessed At Rest Pain Present Pain Present Pain Reported Location Right Ankle Scale Used stated uncomfortable but not really pain Pain Management Techniques Distraction,Modification of Treatment,Re-positioning, Timing of Activity with Medications M4 PT-IP Mobility and Gait Start: 12/25/21 12:55 Freq: NEEDED Status: Active Protocol: Document 12/25/21 09:35 AB (Rec: 12/25/21 13:47 AB [id number]) PT-Bed Mobility Assessment Supine to Sit Supine to Sit Standby Assistance,Head of Bed Elevated,Bedrails PT-Transfer Assessment Comments Mobility Comments BP in supine: 99/53. completed supine to sit SBA with HOB elevated and pt used bed rail. c/o lightheadedness. BP checked: 85/41. pt sat for a few more minutes. continues to c/o dizziness. BP checked again: 78/41. instructed pt to lay back in bed. completed sit to supine SBA. positioned pt in bed. BP chekced: 87/42 . call light and table placed within reach. informed nurse regarding decrease in BP and c /o lightheadedness/dizziness. BP at end of PT session: 116/ 55. educated pt on doctor's order for weight bearing as tolerated on RLE with FWW and no boot for now. pt understood. PT-Balance Assessment Sitting Balance and Reactions Static Sitting Balance Ability Normal Dynamic Sitting Balance Ability Good M5 PT-IP Objective Assessments Start: 12/25/21 12:55 Freq: NEEDED Status: Active Protocol: Document 12/25/21 09:35 AB (Rec: 12/25/21 13:47 AB [id number]) Orientation Orientation/Cognition Level of Alertness Alert Orientation Name,Place,Situation Language Function Ability No Deficits Noted Safety Awareness Decreased Safety Awareness Memory Description Short Term Impaired Gross Range of Motion Lower Extremity ROM Impairments R ankle NT: with dressing on Strength Lower Extremity Strength Assessment Right Impaired Hip 3+/5 Knee 3+/5 Sensation Assessment Sensation Gross Sensation WNL Muscle Tone Muscle Tone WNL Yes M6 PT-IP Treatment Start: 12/25/21 12:55 Freq: NEEDED Status: Active Protocol: Document 12/25/21 09:35 AB (Rec: 12/25/21 13:47 AB [id number]) Physical Therapy Treatment Education Education Provided Weight Bearing Status,Safety M7 PT-IP Assessment and Plan Start: 12/25/21 12:55 Freq: NEEDED Status: Active Protocol: Document 12/25/21 09:35 AB (Rec: 12/25/21 13:47 AB [id number]) PT Summary Assessment and Plan Potential Rehabilitation Potential Fair Status of Condition at Evaluation Evolving Summary Impairments Pain,ROM,Strength,Balance, Coordination,Sensation,Tone, Cognition,Bed Mobility, Transfers,Gait,Activity Tolerance Assessment Summary Pt unable to tolerate much activity due to c/o dizziness/ lightheadness and decrease in BP to 78/41 in sitting. will continue to assess progress. Goals Bed Mobility Goal Independent Transfer Goal Contact Guard Assistance,Front Wheeled Walker Gait Goal Contact Guard Assistance,Front Wheel Walker Gait Distance 50 Days to Meet Goals 10 Frequency of Treatment Frequency Of Treatment Once a Day Treatment Plan Physical Therapy Treatment Plan Bed Mobility Training,Transfer Training,Gait Training, Therapeutic Exercise,Balance Retraining,Post Op Education, Discharge Planning,Hot or Cold Pack,Neuromuscular Re-ed, Coordination Retraining,Manual Therapy Weight Bearing Status Weight Bearing Status Weight Bear as Tolerated Allowed Weight Bearing Amount (enter % RLE WBAT with walker: per or #) (%) doctor: minimal walking only Recommendations To Nursing Amount of Assist Needed PT/OT Assist Only Discharge Recommendations PT Discharge Recommendations SNF Rehab Transportation Needs at Discharge Wheelchair/Cabulance
[2021-12-25] MEDS: ACETAMINOPHEN 325 MG TABLET 650 MG PO ×2 (11:38→20:29)
[2021-12-25] MEDS: SENNOSIDES 8.6 MG TABLET PO (12:12)
[2021-12-25] MEDS: polyethylene glycoL 3350 17 GM POWD.PACK PO (12:12)
--- NOTE | 2021-12-25 12:42 | OT.IPNOTE ---
Attempted OT eval with pt, eating lunch at this time and not wanting to be seen. Pt states to check back later as may want a shower.
--- NOTE | 2021-12-25 13:34 | OT.IPNOTE ---
Went to check on pt again for OT eval and pt not remembering OT came by earlier to see her. Pt not wanting to get up and preferring to try to do a shower with OT tomorrow. NO charge
--- NOTE | 2021-12-25 14:56 | P.PN_ITS ---
Subjective Subjective Date Patient Seen: 12/25/21 Time Patient Seen: 14:57 Interval history: Patient states her pain is mild. She denies fever or chills. No nausea or vomiting. Exam Vital Signs (past 8 hours): - 12/25/21 08:20 Temperature 98.5 F Pulse Rate 102 H Respiratory Rate 18 Blood Pressure 152/71 H Pulse Oximetry 97 Oxygen Flow Rate 3 Oxygen Delivery Method Nasal Cannula Oxygen Flow Rate 3 Narrative Exam Narrative: Pleasant 81-year-old female resting comfortably in bed in no apparent distress. Soft dressing in place. Motor functions intact right lower extremity. Se nsation grossly intact to light touch. Her calf is soft and nontender. Const General: cooperative and comfortable Orientation: alert Resp Effort & Inspection: normal respiratory effort and able to speak in complete sentences Objective Labs Result Diagrams: 12/25/21 06:55 12/25/21 06:55 Labs: Laboratory Results - last 24 hr 12/25/21 12/25/21 06:55 06:55 WBC 7.0 RBC 3.23 L Hgb 8.2 L Hct 24.9 L MCV 77.3 L MCH 25.3 L MCHC 32.7 RDW 16.9 H Plt Count 366 Neut % (Auto) 70.1 Lymph % (Auto) 13.2 L [place] % (Auto) 9.4 Eos % (Auto) 6.5 H Baso % (Auto) 0.8 Neut # (Auto) 4900 Lymph # (Auto) 900 L [place] # (Auto) 700 Eos # (Auto) 500 H Baso # (Auto) 100 Sodium 130 L Potassium 3.7 Chloride 91 L Carbon Dioxide 36 H BUN 11 Creatinine 0.41 L Estimated GFR > 60 BUN/Creatinine Ratio 26.8 H Glucose 78 L Calcium 7.9 L PFSH Medical History Acute CVA (cerebrovascular accident) (2018) Anaphylactic reaction (07/31/08) Aortic stenosis Arthritis Chest pain Chronic obstructive pulmonary disease Constipation Coronary artery disease Current smoker (05/17/12) Depression Dermatitis Difficulty swallowing Diverticulosis 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) GERD (gastroesophageal reflux disease) Heart murmur History of aortic valve replacement with bioprosthetic valve (10/23/10) Hyperlipidemia Hypertension Hypothyroidism Macular degeneration Malignant neoplasm of lung Mitral valve disorder Neuropathy Nocturnal hypoxia Non Hodgkin's lymphoma Osteoarthritis (07/23/10) Osteoporosis (~2015) Peripheral neuropathy Pulmonary embolism Raynaud's disease (05/17/12) 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) Surgical History H/O total hysterectomy History of appendectomy History of cataract removal with insertion of prosthetic lens (2008) History of cholecystectomy History of lumpectomy of left breast History of lung surgery (1994) History of removal of Port-a-Cath (07/04/17) History of surgery Hx of aortic valve replacement (06/22/13) Hx of fusion of cervical spine (~03/2004) Hx of fusion of cervical spine (02/2006) Hx of hysterectomy (~04/1987) Status post cholecystectomy (08/22/09) Family History Mother Cancer Colon cancer Heart disease Father Lung cancer Brother Lung cancer Sister CVA (cerebral vascular accident) Heart disease Daughter Myocardial infarction Social History marital status: unknown household members: none Smoking Status: Former smoker Tobacco: How many years used: 50 second hand exposure: Yes alcohol intake: current substance use type: does not use Assessment & Plan Post-op Postoperative Procedures: Procedures Operation Date: 12/24/21 17:30 Actual Procedure Side Surgeon p I&D ankle Right Марина Verdugo MD Postoperative day: 1 Postoperative status: doing well Postoperative status narrative: Status post irrigation debridement and excisional debridement right ankle, lateral side Irrigation debridement excisional debridement right ankle medial side secondary to right trimalleolar ankle fracture with infection hardware complicating infection. Patient had surgery on December 24, 2021 Postoperative plan narrative: Remain on scheduled antibiotics these will be broad spectrum and narrowed as indicated. Appreciate internal medicine hospitalist help with this highly medically complex patient. She will be weightbear as tolerated in the soft dressing. I will keep her out of the walking boot for now as I do not want any extra pressure on her skin. She should use a walker for all ambulation. And this should be minimal just up and around the room into the restroom or with therapy. On Wednesday she will start wet to dry dressing changes b.i.d.. I will participate in the 1st check and based on this assessment we will plan for either continued wet to dries or possible plan for attempted conversion to outpatient wound VAC with the wound care center if her surrounding tissues become amenable. Due to her medical comorbidities I do anticipate slow and challenging soft tissue healing. Our goal will be to maintain hardware through the treatment as her fractures are not yet healed. Anticipate outpatient IV antibiotics likely as well and would be narrowed based on cultures. Okay to restart Lovenox today. Quality VTE Deep Vein Thrombosis/Pulmonary Embolism Present on Admission: No
[2021-12-25 19:55] VITALS: BP 172/75; PULSE 99; RESP 18; TEMP 36.6; O2SAT 97
[2021-12-25] MEDS: MIRTAZAPINE 15 MG TABLET PO (20:28)
[2021-12-25] MEDS: ATORVASTATIN 20 MG TABLET 40 MG PO (20:28)
[2021-12-25] MEDS: GABAPENTIN 400 MG CAPSULE 800 MG PO (20:29)
[2021-12-25] MEDS: MELATONIN 3 MG TABLET 9 MG PO (20:29)
[2021-12-25 21:05] VITALS: O2SAT 93
[2021-12-26] MEDS: CEFEPIME 2 GM in SODIUM CHLORIDE 0.9% 100 ML IV ×4 (00:02→23:48)
[2021-12-26] MEDS: SODIUM CHLORIDE 0.9% FLUSH 10 ML IV ×7 (00:03→22:31)
[2021-12-26] MEDS: SODIUM CHLORIDE 0.9% 250 ML 21 ML IV (00:05)
--- NOTE | 2021-12-26 02:12 | PC.NURSE ---
Unable to draw blood for labs. Aidan hospitalist okay with accessing pts chest port. Patient tolerated well and blood draw successful.
[2021-12-26 02:38] VITALS: BP 171/75; PULSE 95; RESP 18; TEMP 36.6; O2SAT 93
[2021-12-26 02:43] LABS: Vancomycin Trough 7.5 ug/mL (10-20)
[2021-12-26] MEDS: VANCOMYCIN 750 MG/150 ML PIGGYBACK 150 MG IV (02:49)
[2021-12-26] MEDS: VANCOMYCIN TROUGH 1 REQUEST MISC (02:51)
--- NOTE | 2021-12-26 02:55 | PC.NURSE ---
Was unable to draw Vanco trough level through peripheral blood draw. Coordinator Elda EDEN. access her Rt. chest port. Hospitalist EDDIE Barton notified. Port accessed & heparin locked, pt. requested not to use her port for her Vancomycin infusion. Vanco infusing in her PIV, will monitor.
[2021-12-26 05:15] LABS: Add Manual Diff / Slide Review NO; Basophils Absolute Auto 100 /uL (0-100); Basophils Percent Auto 2.2 % (0-2); Eosinophils Absolute Auto 400 /uL (0-450); Eosinophils Percent Auto 9.5 % (2-4); Hematocrit 23.3 % (36-46); Hemoglobin 7.6 g/dL (12.0-16.0); Lymphocytes Absolute Auto 800 /uL (1100-4500); Lymphocytes Percent Auto 17.4 % (25-40); Mean Corpuscular HGB Conc 32.5 % (30-36); Mean Corpuscular Hemoglobin 24.7 PG (26-34); Monocytes Absolute Auto 500 /uL (0-900); Monocytes Percent Auto 11.2 % (3-14); Neutrophils Absolute Auto 2800 /uL (1500-7000); Neutrophils Percent Auto 59.7 % (50-75); Platelet Count 360 X10^3/uL (150-400); Red Blood Cell Count 3.06 X10^6/uL (4.0-5.2); Red Cell Distribution Width 16.5 % (11.6-14.8); White Blood Cell Count 4.7 X10^3/uL (4.5-11.0)
[2021-12-26 05:36] LABS: BUN Creatinine Ratio 23.5 (6-22); Blood Urea Nitrogen 8 mg/dL (7-17); Carbon Dioxide 36 mmol/L (22-32); Chloride 91 mmol/L (98-107); Estimated Glomerular Filt Rate > 60 mL/min (>60); Glucose 76 mg/dL (80-110); HEMOLYSIS < 15 (0-50); Potassium 3.1 mmol/L (3.4-5.1); Sodium 130 mmol/L (137-145)
[2021-12-26] MEDS: VANCOMYCIN PEAK 1 REQUEST MISC (05:44)
[2021-12-26 06:47] LABS: Erythrocyte Sedimentation Rate 9 MM/HR (0-20)
--- NOTE | 2021-12-26 07:43 | P.PN_ITS ---
Subjective Subjective Date Patient Seen: 12/26/21 Time Patient Seen: 12:00 Interval history: Had a small BM yesterday but feeling bloated and no BM today. Was taking lactulose at the SNF so this will be restarted today. Pain in foot is manageable. PT rec SNF. Exam Vital Signs (past 8 hours): - 12/26/21 02:38 Temperature 97.8 F Pulse Rate 95 H Respiratory Rate 18 Blood Pressure 171/75 H Pulse Oximetry 93 Oxygen Flow Rate 3 Oxygen Delivery Method Nasal Cannula Oxygen Flow Rate 3 Narrative Exam Narrative: GEN: no acute distress, pleasant and comfortable HEENT: moist mucous membranes, PERRL NECK: trachea midline, no JVD CV: regular rate and rhythm, no murmurs PULM: clear bilaterally ABD: soft, mildly tender, mildly distended, no organomegaly EXT: R ankle wrapped in gauze and con bandage NEURO: awake, alert, oriented, no focal deficits Objective Labs Result Diagrams: 12/26/21 05:00 12/26/21 05:00 Labs: Laboratory Results - last 24 hr 12/26/21 12/26/21 12/26/21 02:00 05:00 05:00 WBC 4.7 RBC 3.06 L Hgb 7.6 L Hct 23.3 L MCV 76.0 L MCH 24.7 L MCHC 32.5 RDW 16.5 H Plt Count 360 Neut % (Auto) 59.7 Lymph % (Auto) 17.4 L [place] % (Auto) 11.2 Eos % (Auto) 9.5 H Baso % (Auto) 2.2 H Neut # (Auto) 2800 Lymph # (Auto) 800 L [place] # (Auto) 500 Eos # (Auto) 400 Baso # (Auto) 100 ESR Sodium 130 L Potassium 3.1 L Chloride 91 L Carbon Dioxide 36 H BUN 8 Creatinine 0.34 L Estimated GFR > 60 BUN/Creatinine Ratio 23.5 H Glucose 76 L Calcium 8.0 L Vancomycin Peak Vancomycin Trough 7.5 L 12/26/21 12/26/21 05:00 05:00 WBC RBC Hgb Hct MCV MCH MCHC RDW Plt Count Neut % (Auto) Lymph % (Auto) [place] % (Auto) Eos % (Auto) Baso % (Auto) Neut # (Auto) Lymph # (Auto) [place] # (Auto) Eos # (Auto) Baso # (Auto) ESR 9 Sodium Potassium Chloride Carbon Dioxide BUN Creatinine Estimated GFR BUN/Creatinine Ratio Glucose Calcium Vancomycin Peak 17.0 L Vancomycin Trough [facility] Medical History Acute CVA (cerebrovascular accident) (2017) Anaphylactic reaction (07/31/08) Aortic stenosis Arthritis Chest pain Chronic obstructive pulmonary disease Constipation Coronary artery disease Current smoker (05/17/12) Depression Dermatitis Difficulty swallowing Diverticulosis 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) GERD (gastroesophageal reflux disease) Heart murmur History of aortic valve replacement with bioprosthetic valve (10/23/10) Hyperlipidemia Hypertension Hypothyroidism Macular degeneration Malignant neoplasm of lung Mitral valve disorder Neuropathy Nocturnal hypoxia Non Hodgkin's lymphoma Osteoarthritis (07/23/10) Osteoporosis (~2015) Peripheral neuropathy Pulmonary embolism Raynaud's disease (05/17/12) 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) Surgical History H/O total hysterectomy History of appendectomy History of cataract removal with insertion of prosthetic lens (2008) History of cholecystectomy History of lumpectomy of left breast History of lung surgery (1994) History of removal of Port-a-Cath (07/04/17) History of surgery Hx of aortic valve replacement (06/22/13) Hx of fusion of cervical spine (~03/2004) Hx of fusion of cervical spine (02/2006) Hx of hysterectomy (~04/1987) Status post cholecystectomy (08/22/09) Family History Mother Cancer Colon cancer Heart disease Father Lung cancer Brother Lung cancer Sister CVA (cerebral vascular accident) Heart disease Daughter Myocardial infarction Social History marital status: unknown household members: none Smoking Status: Former smoker Tobacco: How many years used: 50 second hand exposure: Yes alcohol intake: current substance use type: does not use Assessment & Plan Assessment & Plan narrative: # right ankle s/p ORIF with concern for hardware infection -saw in ortho clinic 12/[address] Verdugo who noted increased drainage, warmth and swelling of right ankle so sent to hospital for IV abx and OR washout -underwent washout with Dr. Verdugo ortho on 12/24 with debridement of necrotic tissue -vanc and cefepime, rifampin for biofilm prevention -blood cultures NGTD -wound cultures in OR positive for staph aureus, sens pending -PT/OT eval rec SNF # chronic hypoxic respiratory failure -secondary to COPD -uses 3 L O2 at night # severe aortic stenosis -per echo 2 years ago had high valve gradients and Cardiology recommending valve replacement although patient did not want to go through it # hypertension, chronic -continue home metoprolol # hyperlipidemia, chronic -continue home Crestor # history of CVA -continue home aspirin and statin # hypothyroidism, chronic -continue home Synthroid # insomnia -continue home Remeron and melatonin # constipation -continue lactulose -give mag citrate Code status is DNR. COVID negative. DVT prophylaxis with SCDs on left leg. Proxy is her daughter Kenyetta. I have reviewed home meds and used all available resources to reconcile the home meds. Dispo: 1-2 days likely to SNF pending abx regimen and wound care plan per ortho. Time Spent With Patient Critical Care time: I spent a total of [] minutes of critical care time on this patient's care today; this time is exclusive of procedural time. Quality VTE Deep Vein Thrombosis/Pulmonary Embolism Present on Admission: No
[2021-12-26 07:45] VITALS: O2SAT 94
[2021-12-26 07:54] LABS: C-Reactive Protein Quant 11.9 mg/dL (<1.0)
--- NOTE | 2021-12-26 07:57 | PM.PNPO.1 ---
Subjective Subjective Date Patient Seen: 12/26/21 Time Patient Seen: 07:57 Interval history: Postop day 1, I&D right trimalleolar ankle fracture infection, wound dehiscence Comfortable lying in bed this morning. Exam Vital Signs (past 8 hours): - 12/26/21 02:38 Temperature 97.8 F Pulse Rate 95 H Respiratory Rate 18 Blood Pressure 171/75 H Pulse Oximetry 93 Oxygen Flow Rate 3 Oxygen Delivery Method Nasal Cannula Oxygen Flow Rate 3 Narrative Exam Narrative: Alert oriented no acute distress lying comfortably in bed Normocephalic atraumatic, thin womab Breathing unlabored Musculoskeletal exam. Right ankle is unwrapped. What dries removed. There is small wound laterally approximately 1 x 1 cm round with scant fibrinous exudate. [place] granulation bed. No active bleeding. No malodor. Surrounding tissue irritated with some erythema and skin changes related to hematoma. Less swelling than previous. No active weeping. There are some areas of unroofed skin slough. No fluctuance. Overall improved from pre I and D clinical picture. Skin changes all localized within previous borders. No ascending cellulitis. There is a similar small full-thickness wound on the medial side partial visualization deep PDS suture and a few nylon sutures in place. Small amount of fibrinous exudate. New wet-to-dry dressing is placed followed by gauze fluffs and a soft wrap. Patient does demonstrate active dorsiflexion plantar flexion of the ankle. The calf is soft. There is a palpable dorsalis pedis pulse. Objective Labs Result Diagrams: 12/26/21 05:00 12/26/21 05:00 Labs: Laboratory Results - last 24 hr 12/26/21 12/26/21 12/26/21 02:00 05:00 05:00 WBC 4.7 RBC 3.06 L Hgb 7.6 L Hct 23.3 L MCV 76.0 L MCH 24.7 L MCHC 32.5 RDW 16.5 H Plt Count 360 Neut % (Auto) 59.7 Lymph % (Auto) 17.4 L [place] % (Auto) 11.2 Eos % (Auto) 9.5 H Baso % (Auto) 2.2 H Neut # (Auto) 2800 Lymph # (Auto) 800 L [place] # (Auto) 500 Eos # (Auto) 400 Baso # (Auto) 100 ESR Sodium 130 L Potassium 3.1 L Chloride 91 L Carbon Dioxide 36 H BUN 8 Creatinine 0.34 L Estimated GFR > 60 BUN/Creatinine Ratio 23.5 H Glucose 76 L Calcium 8.0 L C-Reactive Protein Vancomycin Peak Vancomycin Trough 7.5 L 12/26/21 12/26/21 12/26/21 05:00 05:00 05:00 WBC RBC Hgb Hct MCV MCH MCHC RDW Plt Count Neut % (Auto) Lymph % (Auto) [place] % (Auto) Eos % (Auto) Baso % (Auto) Neut # (Auto) Lymph # (Auto) [place] # (Auto) Eos # (Auto) Baso # (Auto) ESR 9 Sodium Potassium Chloride Carbon Dioxide BUN Creatinine Estimated GFR BUN/Creatinine Ratio Glucose Calcium C-Reactive Protein 11.9 H Vancomycin Peak 17.0 L Vancomycin Trough PFSH Medical History Acute CVA (cerebrovascular accident) (2017) Anaphylactic reaction (07/31/08) Aortic stenosis Arthritis Chest pain Chronic obstructive pulmonary disease Constipation Coronary artery disease Current smoker (05/17/12) Depression Dermatitis Difficulty swallowing Diverticulosis 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) GERD (gastroesophageal reflux disease) Heart murmur History of aortic valve replacement with bioprosthetic valve (10/23/10) Hyperlipidemia Hypertension Hypothyroidism Macular degeneration Malignant neoplasm of lung Mitral valve disorder Neuropathy Nocturnal hypoxia Non Hodgkin's lymphoma Osteoarthritis (07/23/10) Osteoporosis (~2015) Peripheral neuropathy Pulmonary embolism Raynaud's disease (05/17/12) 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) Surgical History H/O total hysterectomy History of appendectomy History of cataract removal with insertion of prosthetic lens (2008) History of cholecystectomy History of lumpectomy of left breast History of lung surgery (1994) History of removal of Port-a-Cath (07/04/17) History of surgery Hx of aortic valve replacement (06/22/13) Hx of fusion of cervical spine (~03/2004) Hx of fusion of cervical spine (02/2006) Hx of hysterectomy (~04/1987) Status post cholecystectomy (08/22/09) Family History Mother Cancer Colon cancer Heart disease Father Lung cancer Brother Lung cancer Sister CVA (cerebral vascular accident) Heart disease Daughter Myocardial infarction Social History marital status: unknown household members: none Smoking Status: Former smoker Tobacco: How many years used: 50 second hand exposure: Yes alcohol intake: current substance use type: does not use Assessment & Plan Post-op Postoperative Procedures: Procedures Operation Date: 12/24/21 17:30 Actual Procedure Side Surgeon p I&D ankle Right Марина Verdugo MD Postoperative day: 2 Postoperative status: doing well Postoperative status narrative: Doing well. Pain controlled. On broad-spectrum IV antibiotics. Awaiting cultures. No growth yet. Postoperative plan: routine post-op care Postoperative plan narrative: Appreciate internal medicine hospitalist help with this highly medically complex patient. She will be weightbear as tolerated in the soft dressing. I will keep her out of the walking boot for now as I do not want any extra pressure on her skin. She should use a walker for all ambulation. And this should be minimal just up and around the room into the restroom or with therapy. Today she has started wet to dry dressing changes b.i.d.. This is placing a small tamp corner of gauze into each wound covered by dry gauze. I have additionally put some Xeroform around her friable skin posteriorly and covered with fluffs and a soft wrap. She will continue the b.i.d. wet-to-dry dressings through the weekend. Then as her periwound skin improves with plan for wound care consult she may be a candidate to convert to a wound VAC as her surrounding soft tissues become amenable. We will continue to follow cultures and tailor antibiotics as indicated. Anticipate hospitalization through the weekend for cultures and to continue b.i.d. wet-to-dry dressings until an tissues are amenable to organized safe outpatient wound care plan Due to her medical comorbidities I do anticipate slow and challenging soft tissue healing. Our goal will be to maintain hardware through the treatment as her fractures are not yet healed. Anticipate outpatient IV antibiotics likely as well and would be narrowed based on cultures. DVT prophylaxis. Lovenox and SCD. Time Spent With Patient Time with patient: less than 15 minutes Quality VTE Deep Vein Thrombosis/Pulmonary Embolism Present on Admission: No
[2021-12-26 08:00] LABS: Magnesium 1.8 mg/dL (1.6-2.3)
[2021-12-26 08:40] VITALS: BP 133/62; PULSE 108; RESP 20; TEMP 37.1; O2SAT 93
[2021-12-26] MEDS: OXYCODONE IR 5 MG TABLET PO (09:04)
--- NOTE | 2021-12-26 09:17 | PC.NURSE ---
Day shift: Pt in shower w/ help of OT at this time.
[2021-12-26] MEDS: ACETAMINOPHEN 325 MG TABLET 650 MG PO (10:03)
[2021-12-26] MEDS: ENOXAPARIN 40 MG/0.4 ML SYRINGE SUBCUT (10:03)
[2021-12-26] MEDS: POTASSIUM CHLORIDE 20 MEQ TAB 40 MEQ PO (10:04)
[2021-12-26] MEDS: rifAMPin 300 MG CAPSULE 600 MG PO (10:04)
[2021-12-26] MEDS: LEVOTHYROXINE 50 MCG TABLET PO (10:07)
[2021-12-26] MEDS: METOPROLOL IR 25 MG TABLET PO (10:07)
[2021-12-26] MEDS: PANTOPRAZOLE DR 40 MG TABLET PO ×2 (10:07→21:44)
[2021-12-26] MEDS: GABAPENTIN 400 MG CAPSULE PO ×2 (10:07→14:18)
[2021-12-26] MEDS: polyethylene glycoL 3350 17 GM POWD.PACK PO (10:15)
[2021-12-26] MEDS: SENNOSIDES 8.6 MG TABLET PO (10:15)
--- NOTE | 2021-12-26 10:24 | OT.IP.EVAL ---
Current Diagnoses Displaced trimalleolar fracture of unspecified lower leg, initial encounter for closed fracture (12/24/21) Infection and inflammatory reaction due to other internal orthopedic prosthetic devices, implants and grafts, initial encounter (12/24/21) Surgery Performed Operation Date: 12/24/21 17:30 Actual Procedures p I&D ankle(Right) - Марина Verdugo MD Past Medical History (Last Reviewed 12/25/21 @ 14:58 by Andrea Denney PA-C) Acute CVA (cerebrovascular accident) (2017) Anaphylactic reaction (07/31/08) Aortic stenosis Arthritis Chest pain Chronic obstructive pulmonary disease Constipation Coronary artery disease Current smoker (05/17/12) Depression Dermatitis Difficulty swallowing Diverticulosis 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) GERD (gastroesophageal reflux disease) Heart murmur History of aortic valve replacement with bioprosthetic valve (10/23/10) Hyperlipidemia Hypertension Hypothyroidism Macular degeneration Malignant neoplasm of lung Mitral valve disorder Neuropathy Nocturnal hypoxia Non Hodgkin's lymphoma Osteoarthritis (07/23/10) Osteoporosis (~2015) Peripheral neuropathy Pulmonary embolism Raynaud's disease (05/17/12) 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) Surgical History (Last Reviewed 12/25/21 @ 14:58 by Andrea Denney PA-C) H/O total hysterectomy History of appendectomy History of cataract removal with insertion of prosthetic lens (2008) History of cholecystectomy History of lumpectomy of left breast History of lung surgery (1994) History of removal of Port-a-Cath (07/04/17) History of surgery Hx of aortic valve replacement (06/22/13) Hx of fusion of cervical spine (~03/2004) Hx of fusion of cervical spine (02/2006) Hx of hysterectomy (~04/1987) Status post cholecystectomy (08/22/09) Occupational Therapy Inpatient Evaluation/Re-Eval M1 PT/OT-IP Prior Functional Status Start: 12/25/21 12:55 Freq: NEEDED Status: Active Protocol: Document 12/26/21 09:10 [facility] (Rec: 12/26/21 10:54 [facility] [id number]) Medical Review Prior Functional Status Medical History Reviewed Yes Communication able to make needs known Mobility and Gait pt stated that she fractured her R ankle ~ 1 1/2 months ago and has been staying on a SNF since then. Prior to ankle fracture, pt is independent with all mobilities and ambulation without AD. Activities of Daily Living and IADL's Prior to her fractured right ankle in 11/2021, pt was completely independent with all her needs of ADL, IADl and drives. Social History Household Members none Living Arrangements House Number of Floors (Floors) Two Floors Number of Stairs To Enter/Railing? pt stays on main level of the house no steps to enter Home Environment Standard Height Toilet,Walk in Shower,Built-In Shower Seat Home Equipment Four Wheel Walker,Manual Wheelchair,Hand Held Shower, Grab Bars Near Toilet,Grab Bars In Shower Additional Social History Comment pt has an adjustable bed M2 OT-IP Current Condition Start: 12/26/21 10:37 Freq: Status: Active Protocol: Document 12/26/21 09:10 [facility] (Rec: 12/26/21 10:54 [facility] [id number]) Occupational Therapy Current Condition Current Condition Evaluation Date 12/26/21 Treatment Diagnosis I and D rigth ankle Diagnosis Onset Date 12/24/21 M3 OT- IP Subjective and Pain Start: 12/26/21 10:37 Freq: Status: Active Protocol: Document 12/26/21 09:10 [facility] (Rec: 12/26/21 10:54 [facility] [id number]) OT- Subjective Occupational Therapy Visit Type Type Initial Evaluation Visit Start Time 09:10 Visit Stop Time 09:53 Total Visit Minutes 43 Occupational Therapy Visit Comments Patient Comments Pt wanting to shower. Patient/Caregiver Goals To go home. OT Pain Assessment Pain When Pain Assessed At Rest Pain Present Pain Present Pain Reported Location Right Ankle Intensity 5 Scale Used Numeric (0 - 10) M4 OT- IP ADL's Start: 12/26/21 10:37 Freq: Status: Active Protocol: Document 12/26/21 09:10 [facility] (Rec: 12/26/21 10:54 [facility] [id number]) OT [id number]-[id number] General Evaluation Self-Feeding Ability Independent OT ADL-Grooming General Evaluation Grooming Ability Independent Areas Needing Assistance Retrieving/Set-up of Grooming Items Comments OT Grooming Comments While seated OT ADL-Dressing General Eval Lower Body Dressing Ability Moderate Assistance OT ADL-Toileting General Evaluation Toileting Ability Minimal Assistance Areas Needing Assistance Perform Perineal Hygiene OT ADL-Bathing Bathing Type Bathing Type Shower General Evaluation Bathing Ability Moderate Assistance Areas Needing Assistance Wash/Dry Back,Wash/Dry Lower Extremities Devices Bathing Equipment Hand Held Shower Sprayer, Shower Chair with Arms,Grab Bars M5 OT- IP IADL's Start: 12/26/21 10:37 Freq: Status: Active Protocol: Document 12/26/21 09:10 [facility] (Rec: 12/26/21 10:54 [facility] [id number]) OT-Instrumental Activities of Daily Living Deficits IADL Deficits Identified Deficits Home Safety Awareness Awareness of Need for Assistance at Home Good Awareness Ability to Problem Solve Emergency Able to Problem Solve Situations Medication Management Medication Management Comments Pt would benefit from supervision. Money Management Money Management Comments Pt would benefit from supervision. M6 OT- IP Functional Cognition Start: 12/26/21 10:37 Freq: Status: Active Protocol: Document 12/26/21 09:10 [facility] (Rec: 12/26/21 10:54 [facility] [id number]) Cognitive Factors Limiting Selfcare Function Cognitive Ability Level of Alertness Alert,Confusional State Patient Orientation Name,Place,Situation Attention Span Ability Capable of Focused Attention, Capable of Sustained Attention Ability to Follow Commands Able to Follow One Step Commands Memory Description Short Term Impaired Cognitive Comments Cognitive Assessment Comments Pt a little forgetful and trying to wash her back again when just having had therapist to wash her back. Pt also forgetting that she just washed her face. Pt was just given medications which may also be affecting her thinking . Pt would benefit from formal cognitive assessment. OT- Vision and Hearing OT- Hearing Assessment OT- Hearing Assessment Use of Hearing Aids OT- Vision Assessment Visual Acuity Glasses All The Time Vision Assessment Comments Pt states her hearing aid are not here in the hospital. M7 OT- IP Mobility and Balance Start: 12/26/21 10:37 Freq: Status: Active Protocol: Document 12/26/21 09:10 [facility] (Rec: 12/26/21 10:54 [facility] [id number]) OT- Bed Mobility Assessment Supine to Sit Supine to Sit Assist Standby Assistance OT-Transfer Assessment Sit to and From Stand Sit to and from Stand Contact Guard Assistance, Moderate Assistance Transfers Transfer Ability Contact Guard Assistance, Minimal Assistance Technique Transfer Destination Bed,Chair,Shower Stall,Toilet Transfer Technique Stand Step Pivot Devices Transfer Assistive Devices Gait Belt,Front Wheeled Walker Comments Mobility Comments Pt needing SANJAY to help step over the threshold of the shower. MODA to stand from lower surfaces. OT- Balance Assessment Sitting Balance and Reactions Static Sitting Balance Ability Normal Dynamic Sitting Balance Ability Good Standing Balance and Reactions Static Standing Balance Ability Fair Dynamic Standing Balance Ability Poor M8 OT- IP Objective Assessments Start: 12/26/21 10:37 Freq: Status: Active Protocol: Document 12/26/21 09:10 [facility] (Rec: 12/26/21 10:54 [facility] [id number]) OT-Muscle Tone Assessment Muscle Tone WNL Yes M9 OT- IP Assessment and Plan Start: 12/26/21 10:37 Freq: Status: Active Protocol: Document 12/26/21 09:10 [facility] (Rec: 12/26/21 10:54 [facility] [id number]) OT Summary Assessment and Plan Potential Rehabilitation Potential Good Analytic Complexity at Evaluation Moderate Summary OT Impairments Pain,Strength,Balance, Functional Cognition, Functional Mobility,Dressing, Toileting,Bathing,Toilet Transfers,Shower Transfers, Activity Tolerance Progress Towards Goals Progressing Toward Goals Assessment Summary Pt's main barriers are pain, balance, and needing one person assist for needs. Pt looking to go back to skilled rehab when medically stable. Goals Grooming Goal Independent Dressing Goal Independent Toileting Goal Independent Bathing Goal Independent Toilet Transfer Goal Independent Shower Transfer Goal Independent Days to Meet Goals 15 Frequency of Treatment Frequency Of Treatment Once a Day Treatment Plan OT Treatment Plan ADL Training,Functional Cognition Training,Functional Mobility,Patient/Family Education,Discharge Planning Other Treatment Recommendations and Next SLUMS Treatment Focus Discharge Recommendations OT Discharge Recommendations SNF Rehab Transportation Needs at Discharge Wheelchair/Cabulance
[2021-12-26] MEDS: VANCOMYCIN 1,250 MG/250 ML PIGGYBACK 250 MG IV ×2 (11:08→22:30)
--- NOTE | 2021-12-26 11:45 | PT.IPTN ---
Current Diagnoses Displaced trimalleolar fracture of unspecified lower leg, initial encounter for closed fracture (12/24/21) Infection and inflammatory reaction due to other internal orthopedic prosthetic devices, implants and grafts, initial encounter (12/24/21) Surgery Performed Operation Date: 12/24/21 17:30 Actual Procedures p I&D ankle(Right) - Марина Verdugo MD Physical Therapy Treatment Note M2 PT-IP Current Condition Start: 12/25/21 12:55 Freq: NEEDED Status: Active Protocol: Document 12/25/21 09:35 AB (Rec: 12/25/21 13:47 AB [id number]) Physical Therapy Current Condition Current Condition Evaluation Date 12/25/21 Treatment Diagnosis R ankle ORIF s/p I&D; difficulty in walking Onset Date 12/24/21 M3 PT-IP Subjective Start: 12/25/21 12:55 Freq: NEEDED Status: Active Protocol: Document 12/26/21 11:45 AB (Rec: 12/26/21 12:17 AB [id number]) Subjective Physical Therapy Visit Type Type Treatment Note Visit Start Time 11:45 Visit Stop Time 12:05 Total Visit Minutes 20 Number of [employer] Visits 0 Therapy Pain Assessment Pain When Pain Assessed At Rest Pain Present Pain Present Pain Reported Location Right Ankle Intensity 2 Scale Used Numeric (0 - 10) M4 PT-IP Mobility and Gait Start: 12/25/21 12:55 Freq: NEEDED Status: Active Protocol: Document 12/26/21 11:45 AB (Rec: 12/26/21 12:17 AB [id number]) PT-Bed Mobility Assessment Supine to Sit Supine to Sit Standby Assistance,Head of Bed Elevated,Bedrails PT-Transfer Assessment Sit to and From Stand Sit to and from Stand Minimal Assistance,1 Person Assistance,Use of Upper Extremities Equipment Transfer Assistive Device Gait Belt,Front Wheeled Walker Orthotic/Prosthetic Devices or Brace: No Transfers Transfer Destination Chair Transfer Technique ambulated Transfer Ability Level of Assist Minimal Assistance,1 Person Assistance,Use of Upper Extremities Comments Mobility Comments BP in supine: 133/65 O2 sat: 97-98% with 2L/min O2. pt completed supine to sit SBA with HOB elevated. pt use bed rail to assist. pt able to sit on EOB SBA. no c/o dizziness. pt completed sit to stand min A and cues and ambulated in room ~ 20 ft using FWW min A and sat on chair. agreed to sit on chair for lunch. positioned pt on the chair. set up table with lunch. call light and table placed within reach. Gait Assessment Gait Gait Assistance Required: Minimum Assistance Distance (Feet) 20 Able to Maintain Weight Bearing Status Yes During Gait Assistive Devices Assistive Device Gait Belt,Front Wheeled Walker Orthotic/Prosthetic Devices or Brace: No Gait Deviations General Gait Pattern Antalgic,Decreased Stride Length,Decreased Feet Clearance,Step-to Gait Factors Limiting Gait Function Factors Limiting Gait Function Decreased Activity Tolerance, Decreased Strength,Limited Range of Motion,Pain,Poor Balance,Poor Safety Awareness M5 PT-IP Objective Assessments Start: 12/25/21 12:55 Freq: NEEDED Status: Active Protocol: Document 12/25/21 09:35 [facility] (Rec: 12/25/21 13:47 [facility] Orientation Orientation/Cognition Level of Alertness Alert Orientation Name,Place,Situation Language Function Ability No Deficits Noted Safety Awareness Decreased Safety Awareness Memory Description Short Term Impaired Gross Range of Motion Lower Extremity ROM Impairments R ankle NT: with dressing on Strength Lower Extremity Strength Assessment Right Impaired Hip 3+/5 Knee 3+/5 Sensation Assessment Sensation Gross Sensation WNL Muscle Tone Muscle Tone WNL Yes M6 PT-IP Treatment Start: 12/25/21 12:55 Freq: NEEDED Status: Active Protocol: Document 12/26/21 11:45 AB (Rec: 12/26/21 12:17 [facility] Physical Therapy Treatment Education Education Provided Weight Bearing Status,Safety M7 PT-IP Assessment and Plan Start: 12/25/21 12:55 Freq: NEEDED Status: Active Protocol: Document 12/26/21 11:45 AB (Rec: 12/26/21 12:17 [facility] PT Summary Assessment and Plan Potential Rehabilitation Potential Good Summary Impairments Pain,ROM,Strength,Balance, Coordination,Sensation,Tone, Cognition,Bed Mobility, Transfers,Gait,Activity Tolerance Progress Towards Goals Slow Progress due to Medical Issues,Slow Progress due to Activity Tolerance Assessment Summary pt requiring min A with mobility using FWW. pt currently needing wound care and ongoing antibiotic tx. pt will require SNF rehab to improve overall strength and independence. Goals Bed Mobility Goal Independent Transfer Goal Contact Guard Assistance,Front Wheeled Walker Gait Goal Contact Guard Assistance,Front Wheel Walker Gait Distance 50 Days to Meet Goals 10 Frequency of Treatment Frequency Of Treatment Once a Day Treatment Plan Physical Therapy Treatment Plan Bed Mobility Training,Transfer Training,Gait Training, Therapeutic Exercise,Balance Retraining,Post Op Education, Discharge Planning,Hot or Cold Pack,Neuromuscular Re-ed, Coordination Retraining,Manual Therapy Weight Bearing Status Weight Bearing Status Weight Bear as Tolerated Allowed Weight Bearing Amount (enter % RLE WBAT with walker: per or #) (%) doctor: minimal walking only Recommendations To Nursing Amount of Assist Needed 1 Person Assist Discharge Recommendations PT Discharge Recommendations SNF Rehab Transportation Needs at Discharge Wheelchair/Cabulance
[2021-12-26 12:15] VITALS: BP 134/65; PULSE 88; RESP 20; TEMP 36.8; O2SAT 98
--- NOTE | 2021-12-26 12:30 | CM.DPC ---
DCP Cont: Spoke to Sowmya at [facility] to see if they can accept patient this week-end in case she is ready for discharge. Patient may be going with wound vac, and IV ABO, which they can do, but will depend upon the final IV antibiotic that she will be on. Sowmya indicated that they can accept patient if she is ready this week-end. P: DCP to continue to follow. Plan is for patient to return to [facility] when she is deemed medically stable and it is known which IV ABO she would be on. Roberta Armijo RN/[employer]atwork Assembler
[2021-12-26] MEDS: LACTULOSE 20 GM/30 ML SOLUTION PO ×2 (14:17→21:44)
[2021-12-26 17:55] VITALS: BP 125/62; PULSE 89; RESP 20; TEMP 36.9; O2SAT 97
[2021-12-26 19:13] VITALS: PULSE 91; RESP 18; O2SAT 97
[2021-12-26] MEDS: ONDANSETRON 4 MG/2 ML INJ IV (19:53)
[2021-12-26] MEDS: ATORVASTATIN 20 MG TABLET 40 MG PO (21:44)
[2021-12-26] MEDS: MELATONIN 3 MG TABLET 9 MG PO (21:44)
[2021-12-26] MEDS: METOPROLOL IR 25 MG TABLET 12.5 MG PO (21:45)
[2021-12-26] MEDS: GABAPENTIN 400 MG CAPSULE 800 MG PO (21:45)
[2021-12-26] MEDS: MIRTAZAPINE 15 MG TABLET PO (21:48)
[2021-12-27] VITALS: BP 139/70; PULSE 91; RESP 18; TEMP 37.1; O2SAT 97
[2021-12-27] MEDS: OXYCODONE IR 5 MG TABLET PO (01:27)
[2021-12-27] MEDS: SODIUM CHLORIDE 0.9% FLUSH 10 ML IV (05:28)
[2021-12-27 05:47] LABS: Add Manual Diff / Slide Review NO; Basophils Absolute Auto 200 /uL (0-100); Basophils Percent Auto 3.8 % (0-2); Eosinophils Absolute Auto 400 /uL (0-450); Eosinophils Percent Auto 7.9 % (2-4); Hematocrit 24.1 % (36-46); Hemoglobin 7.8 g/dL (12.0-16.0); Lymphocytes Absolute Auto 800 /uL (1100-4500); Lymphocytes Percent Auto 14.7 % (25-40); Mean Corpuscular HGB Conc 32.3 % (30-36); Mean Corpuscular Hemoglobin 24.5 PG (26-34); Mean Corpuscular Volume 75.9 fL (80-100); Monocytes Absolute Auto 500 /uL (0-900); Neutrophils Absolute Auto 3500 /uL (1500-7000); Neutrophils Percent Auto 63.6 % (50-75); Platelet Count 391 X10^3/uL (150-400); Red Blood Cell Count 3.18 X10^6/uL (4.0-5.2); White Blood Cell Count 5.5 X10^3/uL (4.5-11.0)
[2021-12-27] MEDS: LEVOTHYROXINE 50 MCG TABLET PO (05:50)
[2021-12-27 05:53] LABS: BUN Creatinine Ratio 25.7 (6-22); Blood Urea Nitrogen 9 mg/dL (7-17); Carbon Dioxide 37 mmol/L (22-32); Chloride 90 mmol/L (98-107); Estimated Glomerular Filt Rate > 60 mL/min (>60); Glucose 92 mg/dL (80-110); HEMOLYSIS < 15 (0-50); Potassium 3.4 mmol/L (3.4-5.1); Sodium 130 mmol/L (137-145)
[2021-12-27 05:55] VITALS: BP 155/75; PULSE 75; RESP 14; TEMP 36.6; O2SAT 97
--- NOTE | 2021-12-27 06:48 | PC.NURSE ---
12/26/212229 Dressing changed wet to dry right ankle/foot.
[2021-12-27 08:32] VITALS: BP 155/71; PULSE 99; RESP 16; TEMP 36.6; O2SAT 94
[2021-12-27 08:48] VITALS: O2SAT 97
[2021-12-27] MEDS: CEFEPIME 2 GM in SODIUM CHLORIDE 0.9% 100 ML IV (09:16)
[2021-12-27] MEDS: PANTOPRAZOLE DR 40 MG TABLET PO (09:20)
[2021-12-27] MEDS: ENOXAPARIN 40 MG/0.4 ML SYRINGE SUBCUT (09:20)
[2021-12-27] MEDS: rifAMPin 300 MG CAPSULE 600 MG PO (09:20)
[2021-12-27] MEDS: METOPROLOL IR 25 MG TABLET 12.5 MG PO (09:21)
[2021-12-27] MEDS: LACTULOSE 20 GM/30 ML SOLUTION PO (09:23)
[2021-12-27] MEDS: GABAPENTIN 400 MG CAPSULE PO (09:30)
--- NOTE | 2021-12-27 10:40 | PT.IPTN ---
Current Diagnoses Displaced trimalleolar fracture of unspecified lower leg, initial encounter for closed fracture (12/24/21) Infection and inflammatory reaction due to other internal orthopedic prosthetic devices, implants and grafts, initial encounter (12/24/21) Surgery Performed Operation Date: 12/24/21 17:30 Actual Procedures p I&D ankle(Right) - Марина Verdugo MD Physical Therapy Treatment Note M2 PT-IP Current Condition Start: 12/25/21 12:55 Freq: NEEDED Status: Active Protocol: Document 12/25/21 09:35 AB (Rec: 12/25/21 13:47 AB [id number]) Physical Therapy Current Condition Current Condition Evaluation Date 12/25/21 Treatment Diagnosis R ankle ORIF s/p I&D; difficulty in walking Onset Date 12/24/21 M3 PT-IP Subjective Start: 12/25/21 12:55 Freq: NEEDED Status: Active Protocol: Document 12/27/21 10:40 AB (Rec: 12/27/21 12:34 AB [id number]) Subjective Physical Therapy Visit Type Type Treatment Note Visit Start Time 10:40 Visit Stop Time 11:01 Total Visit Minutes 21 Number of AUDIT PRACTICE INTERN Visits 0 Physical Therapy Visit Comments Patient Comments agreeable to do PT M4 PT-IP Mobility and Gait Start: 12/25/21 12:55 Freq: NEEDED Status: Active Protocol: Document 12/27/21 10:40 AB (Rec: 12/27/21 12:34 AB [id number]) PT-Bed Mobility Assessment Supine to Sit Supine to Sit Standby Assistance PT-Transfer Assessment Sit to and From Stand Sit to and from Stand Contact Guard Assistance, Minimal Assistance,1 Person Assistance,Use of Upper Extremities Equipment Transfer Assistive Device Gait Belt,Front Wheeled Walker Orthotic/Prosthetic Devices or Brace: Yes Transfers Transfer Destination Chair Transfer Technique ambulated Transfer Ability Level of Assist Contact Guard Assistance,1 Person Assistance,Use of Upper Extremities Comments Mobility Comments pt completed supine to sit SBA . able to sit on EOB SBA. completed sit to stand CGA to min A and cues and ambulated in room using FWW CGA to min A ~ 40 ft. pt agreed to sit up on the chair. positioned on the chair. call light and table placed within reach. Gait Assessment Gait Gait Assistance Required: Contact Guard Assist,Minimum Assistance Distance (Feet) 40 Able to Maintain Weight Bearing Status Yes During Gait Assistive Devices Assistive Device Gait Belt,Front Wheeled Walker Orthotic/Prosthetic Devices or Brace: No Gait Deviations General Gait Pattern Decreased Stride Length, Decreased Feet Clearance,Step- to Gait Factors Limiting Gait Function Factors Limiting Gait Function Decreased Activity Tolerance, Decreased Strength,Limited Range of Motion,Pain,Poor Balance,Poor Safety Awareness M5 PT-IP Objective Assessments Start: 12/25/21 12:55 Freq: NEEDED Status: Active Protocol: Document 12/25/21 09:35 AB (Rec: 12/25/21 13:47 AB [id number]) Orientation Orientation/Cognition Level of Alertness Alert Orientation Name,Place,Situation Language Function Ability No Deficits Noted Safety Awareness Decreased Safety Awareness Memory Description Short Term Impaired Gross Range of Motion Lower Extremity ROM Impairments R ankle NT: with dressing on Strength Lower Extremity Strength Assessment Right Impaired Hip 3+/5 Knee 3+/5 Sensation Assessment Sensation Gross Sensation WNL Muscle Tone Muscle Tone WNL Yes M6 PT-IP Treatment Start: 12/25/21 12:55 Freq: NEEDED Status: Active Protocol: Document 12/27/21 10:40 AB (Rec: 12/27/21 12:34 AB [id number]) Physical Therapy Treatment Education Education Provided Weight Bearing Status,Safety M7 PT-IP Assessment and Plan Start: 12/25/21 12:55 Freq: NEEDED Status: Active Protocol: Document 12/27/21 10:40 AB (Rec: 12/27/21 12:34 AB [id number]) PT Summary Assessment and Plan Potential Rehabilitation Potential Fair Summary Impairments Pain,ROM,Strength,Balance, Coordination,Sensation,Tone, Cognition,Bed Mobility, Transfers,Gait,Activity Tolerance Progress Towards Goals Slow Progress due to Medical Issues Assessment Summary pt progressing with mobility and requiring CGA to min A using FWW. d/c plan is to go back to SNF for antiobiotic tx and wound care and further PT to improve strength and independence. Goals Bed Mobility Goal Independent Transfer Goal Contact Guard Assistance,Front Wheeled Walker Gait Goal Contact Guard Assistance,Front Wheel Walker Gait Distance 50 Days to Meet Goals 10 Frequency of Treatment Frequency Of Treatment Once a Day Treatment Plan Physical Therapy Treatment Plan Bed Mobility Training,Transfer Training,Gait Training, Therapeutic Exercise,Balance Retraining,Post Op Education, Discharge Planning,Hot or Cold Pack,Neuromuscular Re-ed, Coordination Retraining,Manual Therapy Weight Bearing Status Weight Bearing Status Weight Bear as Tolerated Allowed Weight Bearing Amount (enter % RLE WBAT with walker: per or #) (%) doctor: minimal walking only Recommendations To Nursing Amount of Assist Needed 1 Person Assist Discharge Recommendations PT Discharge Recommendations SNF Rehab Transportation Needs at Discharge Wheelchair/Cabulance
--- NOTE | 2021-12-27 10:40 | CM.DPC ---
Addendum entered by Roberta Armijo R.N. 12/27/21 12:39: Confirmed time of slate picker at 1500, from August, and Maria Guadalupe is the nurse to give report to. Gave this information to nurse, Tucker. Addendum entered by Roberta Armijo R.N. 12/27/21 11:40: Patient does have discharge orders. Updated patient's daughter, Kenyetta, she did ask about her infection, was able to get more information from nurse, Tucker. Had Dr. Palacios sign med orders, and he completed DC Summary. Faxed over to [facility]. Original Note: DCP Cont: Dr. Palacios has consulted with ortho, and have identified which broad spectrum that patient will be on, and should be able to discharge today. Spoke to Sowmya at [facility], and can take her today, she has a port, and medication would be administered through this. Dr. Palacios will complete orders, confirmed that she will need an updated COVID swab, have placed the order. P: DCP to continue to follow. Plan should be for patient to discharge back to [facility] today. As soon as orders are completed, will fax over to [facility]. August will confirm time, she mentioned between [id number]. Roberta Armijo, KAREY/Electronics Production Supervisor
[2021-12-27] MEDS: POTASSIUM CHLORIDE 20 MEQ TAB 40 MEQ PO (10:59)
[2021-12-27] MEDS: CEFAZOLIN 2 GM/100 ML PREMIX 100 ML IV (11:01)
--- NOTE | 2021-12-27 11:03 | P.DS_ITS ---
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 Admitted initially on 11/23/21 for right ankle fracture and underwent ORIF. Post-op she developed SVT for 30 seconds then started on beta susy. Also required increased O2 at 6L which was thought to be due to COPD exac so given 5 days of po prednisone and eventually weaned to baseline of 3L. She required assist with PT therefore SNF was recommended. She has been at [facility] and followed up in ortho clinic today 12/24. Per patient she didn't notice her right ankle having more pain and swelling at all, and in fact was hoping to hear from ortho at her appointment that she could go home. She denies fever/chills, CP, SOB, abd pain, NV or diarrhea. Discharge Providers Provider Date of admission: 12/24/21 11:23 Discharge Date: 12/27/21 Primary care physician: EDDIE Cheema Consults: 12/24/21 12:08 Consult to Orthopedic Surgery Routine Comment: Consulting Provider: Марина Verdugo Reason for consultation: R ankle postop infection 12/24/21 12:09 Consult to Discharge Planning Routine Comment: 12/25/21 12:04 Consult to Physical Therapy Evaluate & Treat Comment: Physician Instructions: Evaluate and Treat 12/25/21 12:06 Consult to Occupational Therapy Evaluate & Treat Comment: Physician Instructions: Evaluate and treat 12/26/21 08:27 Consult to Inpatient Wound Care Nurse Routine Comment: Reason for consultation: Right ankle wound--consideration conversion WTD to wound vac when skin ok Has provider been notified: No Discharge provider: Tobias Palacios MD Summary Hospital Course Discharge Diagnosis: 1. MSSA hardware joint infection of right ankle after recent ORIF for ankle fracture 2. COPD with Chronic hypoxemic respiratory failure 3. Severe aortic stenosis 4. Hypertension 5. Hyperlipidemia 6. History of CVA 7. Hypothyroidism 8. Insomnia 9. Non-hodgkin lymphoma and right lung squamous cell carcinoma 10. Iron deficiency anemia Hospital Course: Ms. Xiong was admitted to the hospital for an infected right ankle. She had previously been admitted and discharged to SNF after a fall and ankle fracture and at that time underwent ORIF. She underwent washout and debridement with Dr. Verdugo on 12/24. Blood cultures remained negative, bout wound culture did grow staph aureus that was sensitive to oxacillin. Due to MSSA infection in a post operative hardware joint infection she was planned for 6 weeks of antibiotics. First day was 12/25, six weeks would be through February 05, 2022. She will be discharged on IV cefazolin 2gm q8hr in addition to rifampin BID. She should see Dr. Verdugo within two weeks, she may be able to be transitioned to oral antibiotics, and consideration can be done as outpatient if she should be referred to ID clinic. In addition she is referred to wound clinic to evaluate healing. Finally, she should have follow up scheduled with her oncologist within two weeks as she has been on immunotherapy for her right lung squamous cell carconima and iron deficiency anemia. Exam Vital Signs (past 8 hours): - 12/27/21 05:55 12/27/21 08:32 12/27/21 08:48 Temperature 97.9 F 97.8 F Pulse Rate 75 99 H Respiratory Rate 14 16 Blood Pressure 155/75 H 155/71 H Pulse Oximetry 97 94 97 Oxygen Delivery Method Nasal Cannula Oxygen Flow Rate 3 3 2 Fraction of Inspired Oxygen 28 SaO2/FiO2 Ratio 346 Oxygen Delivery Method Nasal Cannula Oxygen Flow Rate 2 Narrative Exam Narrative: GEN: no acute distress, pleasant and comfortable CV: regular rate and rhythm, no murmurs PULM: clear bilaterally EXT: R ankle wrapped in bandage Objective Labs Result Diagrams: 12/27/21 05:28 12/27/21 05:28 Labs: Laboratory Results - last 24 hr 12/27/21 12/27/21 05:28 05:28 WBC 5.5 RBC 3.18 L Hgb 7.8 L Hct 24.1 L MCV 75.9 L MCH 24.5 L MCHC 32.3 RDW 17.0 H Plt Count 391 Neut % (Auto) 63.6 Lymph % (Auto) 14.7 L [place] % (Auto) 10.0 Eos % (Auto) 7.9 H Baso % (Auto) 3.8 H Neut # (Auto) 3500 Lymph # (Auto) 800 L [place] # (Auto) 500 Eos # (Auto) 400 Baso # (Auto) 200 H Sodium 130 L Potassium 3.4 Chloride 90 L Carbon Dioxide 37 H BUN 9 Creatinine 0.35 L Estimated GFR > 60 BUN/Creatinine Ratio 25.7 H Glucose 92 Calcium 8.0 L PFSH Medical History Acute CVA (cerebrovascular accident) (2017) Anaphylactic reaction (07/31/08) Aortic stenosis Arthritis Chest pain Chronic obstructive pulmonary disease Constipation Coronary artery disease Current smoker (05/17/12) Depression Dermatitis Difficulty swallowing Diverticulosis 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) GERD (gastroesophageal reflux disease) Heart murmur History of aortic valve replacement with bioprosthetic valve (10/23/10) Hyperlipidemia Hypertension Hypothyroidism Macular degeneration Malignant neoplasm of lung Mitral valve disorder Neuropathy Nocturnal hypoxia Non Hodgkin's lymphoma Osteoarthritis (07/23/10) Osteoporosis (~2015) Peripheral neuropathy Pulmonary embolism Raynaud's disease (05/17/12) 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) Surgical History H/O total hysterectomy History of appendectomy History of cataract removal with insertion of prosthetic lens (2008) History of cholecystectomy History of lumpectomy of left breast History of lung surgery (1994) History of removal of Port-a-Cath (07/04/17) History of surgery Hx of aortic valve replacement (06/22/13) Hx of fusion of cervical spine (~03/2004) Hx of fusion of cervical spine (02/2006) Hx of hysterectomy (~04/1987) Status post cholecystectomy (08/22/09) Family History Mother Cancer Colon cancer Heart disease Father Lung cancer Brother Lung cancer Sister CVA (cerebral vascular accident) Heart disease Daughter Myocardial infarction Social History marital status: unknown household members: none Smoking Status: Former smoker Tobacco: How many years used: 50 second hand exposure: Yes alcohol intake: current substance use type: does not use Discharge Plan Discharge Plan Patient Disposition: SNF Transfer to: [facility] Healthcare Provider Discharge Comment: Ms. Xiong came in with infected ankle. She will need 6 weeks of antibiotics. She will be discharged on IV antibiotics and should follow up with her orthopedic surgeon within 1-2 weeks. Please provider BID wet to dry dressings Discharge orders & Medications Prescriptions: New acetaminophen 325 mg Tablet 650 mg PO Q6HR PRN (Reason: Fever/Mild Pain (1-3)) Qty: 30 0RF atorvastatin [Lipitor] 20 mg Tablet 40 mg PO BEDTIME Qty: 30 0RF melatonin 3 mg Tablet 9 mg PO BEDTIME Qty: 30 0RF pantoprazole 40 mg Tablet,Delayed Release (Dr/Ec) 40 mg PO BID Qty: 30 0RF rifampin 300 mg Capsule 300 mg PO BID Qty: 80 0RF cefazolin 2 gram recon soln 2 g IV Q8H Qty: 126 0RF Continued Restasis 0.05 % dropperette 1 drop EYE-BOTH BID levothyroxine 50 mcg tablet 50 mcg PO DAILY Qty: 90 1RF gabapentin 400 mg capsule 400 mg PO BID Qty: 180 1RF Rx Instructions: Take 1 cap each am and afternoon for pain relief. mirtazapine 15 mg tablet 15 mg PO BEDTIME Qty: 90 3RF amitriptyline 50 mg tablet 50 mg PO BEDTIME Qty: 90 3RF Rx Instructions: Take 1 tab at bedtime daily for sleep. gabapentin 800 mg tablet 800 mg PO BEDTIME Qty: 90 3RF Rx Instructions: Take 1 tab at night for pain relief. PreserVision AREDS-2 [phone] [id number] Capsule 1 tab PO BID Qty: 0 acetaminophen [Tylenol] 325 mg capsule 650 mg PO QID PRN (Reason: pain) Qty: 60 0RF aspirin 81 mg Tablet,Delayed Release (Dr/Ec) 81 mg PO DAILY metoprolol tartrate 25 mg tablet 25 mg PO BID Qty: 60 0RF lactulose 20 gram/30 mL solution 20 g PO BID Qty: 1200 0RF oxycodone 5 mg Tablet 5 mg PO Q3HR PRN (Reason: Pain, Moderate (4-6)) Qty: 10 0RF No Action (DME) Disabled Parking Placard Qty: 1 0RF Dose Instruction: As directed Rx Instructions: Patient qualifies for Disabled Parking Placard Follow up/Referrals: Arabella Patel ARNP [Primary Care Provider] - Марина Verdugo MD [Physician] - (follow up after surgery within 2 weeks) Iban Masterson MD [Physician] - (follow up within srikanth or within one week to evaluate ankle wound) Discharge Health Status Multidrug resistant organism: No MDRO Diet/Activity/Treatments Diet: Regular Liquid consistency: Normal/Thin Food texture: Regular [facility] Reason for rehabilitation: Post-operative therapy Rehab type: Physical therapy and Occupational therapy Visit Report/Discharge Packet Instructions: DI for Implanted Venous Access Port Discharge Data Primary Care Provider: Arabella Patel Quality VTE Deep Vein Thrombosis/Pulmonary Embolism Present on Admission: No
--- NOTE | 2021-12-27 11:18 | OT.IPNOTE ---
Pt looking to go to skilled rehab later today. Pt on the phone and not wanting to do OT at this time.
[2021-12-27 11:30] LABS: COVID19 -Nasal RAPID Negative (Negative)
--- NOTE | 2021-12-27 11:36 | PC.NURSE ---
Addendum entered by Tucker Davenport R.N. 12/27/21 15:44: Discharge instructions and transfer package given to [facility] rep.. Report given to admit Nurse at [facility]. Pt transferred to [facility]'s care. 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 right foot wrapped. Plan for d/c to SNF around 14:00.
== END 2021-12-27 15:30 | DRG 501 ==
PROVIDERS: Internal Medicine; Orthopaedic Surgery Foot and Ankle Surgery; Admitting Provider Student in an Organized Health Care Education/Training Program; PCP Nurse Practitioner; Referring Provider Student in an Organized Health Care Education/Training Program; Visit Provider Student in an Organized Health Care Education/Training Program
PROC: 0KBS0ZZ Excision of Right Lower Leg Muscle, Open Approach (ICD-10-PCS; principal; 2021-12-24 17:30)
DX: T84.624A Infection and inflammatory reaction due to internal fixation device of right fibula, initial encounter (principal); I96 Gangrene, not elsewhere classified; J96.11 Chronic respiratory failure with hypoxia; I35.0 Nonrheumatic aortic (valve) stenosis; I10 Essential (primary) hypertension; E78.5 Hyperlipidemia, unspecified; E03.9 Hypothyroidism, unspecified; G47.00 Insomnia, unspecified; K59.00 Constipation, unspecified; B95.61 Methicillin susceptible Staphylococcus aureus infection as the cause of diseases classified elsewhere; J44.9 Chronic obstructive pulmonary disease, unspecified; F32.A Depression, unspecified; K21.9 Gastro-esophageal reflux disease without esophagitis; Z86.73 Personal history of transient ischemic attack (TIA), and cerebral infarction without residual deficits; Z20.822 Contact with and (suspected) exposure to COVID-19; Z87.891 Personal history of nicotine dependence; Z66 Do not resuscitate; Z99.81 Dependence on supplemental oxygen
CPT/HCPCS: 36415; 36591; 80048; 80053; 80202; 83735; 85025; 85651; 86140; 87040; 87070; 87075; 87077; 87147; 87186; 87205; 87635; 94762; 97116; 97162; 97166; 97530; 97535; C9803; J0171; J0690; J0692; J1642; J1650; J2405; J2704; J3010

== ENCOUNTER → 2022-01-01 15:00 | Outpatient (CLI) | payer MEDICARE, OTHER, SELFPAY ==
[2021-12-24 11:32] VITALS: BMI 21.8
== END ==
PROVIDERS: PCP Nurse Practitioner; Referring Provider Orthopaedic Surgery Foot and Ankle Surgery; Visit Provider Family Medicine
DX: S81.801A Unspecified open wound, right lower leg, initial encounter (principal); T85.79XA Infection and inflammatory reaction due to other internal prosthetic devices, implants and grafts, initial encounter; B95.61 Methicillin susceptible Staphylococcus aureus infection as the cause of diseases classified elsewhere; I73.9 Peripheral vascular disease, unspecified; R60.0 Localized edema; L53.9 Erythematous condition, unspecified; Z96.698 Presence of other orthopedic joint implants; Z79.2 Long term (current) use of antibiotics; Z79.899 Other long term (current) drug therapy
CPT/HCPCS: 11042; 11043; 99204; 99213

== ENCOUNTER → 2022-01-08 14:01 | Outpatient (CLI) | payer MEDICARE, OTHER, SELFPAY ==
[2021-12-24 11:32] VITALS: BMI 21.8
== END ==
PROVIDERS: PCP Nurse Practitioner; Referring Provider Orthopaedic Surgery Foot and Ankle Surgery; Visit Provider Family Medicine
DX: S81.801A Unspecified open wound, right lower leg, initial encounter (principal); T85.79XA Infection and inflammatory reaction due to other internal prosthetic devices, implants and grafts, initial encounter; B95.61 Methicillin susceptible Staphylococcus aureus infection as the cause of diseases classified elsewhere; I73.9 Peripheral vascular disease, unspecified; Z96.698 Presence of other orthopedic joint implants; Z79.2 Long term (current) use of antibiotics; Z79.899 Other long term (current) drug therapy; E46 Unspecified protein-calorie malnutrition
CPT/HCPCS: 11042; 87070; 87075; 87205; 99213

== ENCOUNTER → 2022-01-15 09:45 | Outpatient (CLI) | payer MEDICARE, OTHER, SELFPAY ==
[2021-12-24 11:32] VITALS: BMI 21.8
== END ==
PROVIDERS: PCP Nurse Practitioner; Referring Provider Orthopaedic Surgery Foot and Ankle Surgery; Visit Provider Family Medicine
DX: S81.801A Unspecified open wound, right lower leg, initial encounter (principal); T85.79XA Infection and inflammatory reaction due to other internal prosthetic devices, implants and grafts, initial encounter; B95.61 Methicillin susceptible Staphylococcus aureus infection as the cause of diseases classified elsewhere; I73.9 Peripheral vascular disease, unspecified; Z96.698 Presence of other orthopedic joint implants; Z79.2 Long term (current) use of antibiotics; Z79.899 Other long term (current) drug therapy
CPT/HCPCS: 11042; 97605

== ENCOUNTER → 2022-01-22 10:40 | Outpatient (CLI) | payer MEDICARE, OTHER, SELFPAY ==
[2021-12-24 11:32] VITALS: BMI 21.8
== END ==
PROVIDERS: PCP Nurse Practitioner; Referring Provider Orthopaedic Surgery Foot and Ankle Surgery; Visit Provider Family Medicine
DX: T85.79XA Infection and inflammatory reaction due to other internal prosthetic devices, implants and grafts, initial encounter (principal); T81.89XA Other complications of procedures, not elsewhere classified, initial encounter; S81.801A Unspecified open wound, right lower leg, initial encounter; S91.301A Unspecified open wound, right foot, initial encounter; B95.61 Methicillin susceptible Staphylococcus aureus infection as the cause of diseases classified elsewhere; Z96.698 Presence of other orthopedic joint implants; Z79.2 Long term (current) use of antibiotics; Z79.899 Other long term (current) drug therapy; E46 Unspecified protein-calorie malnutrition
CPT/HCPCS: 11042; 97605

== ENCOUNTER → 2022-01-29 09:25 | Outpatient (CLI) | payer MEDICARE, OTHER, SELFPAY ==
[2021-12-24 11:32] VITALS: BMI 21.8
== END ==
PROVIDERS: PCP Nurse Practitioner; Referring Provider Orthopaedic Surgery Foot and Ankle Surgery; Visit Provider Family Medicine
DX: S81.801A Unspecified open wound, right lower leg, initial encounter (principal); T85.79XA Infection and inflammatory reaction due to other internal prosthetic devices, implants and grafts, initial encounter; I73.9 Peripheral vascular disease, unspecified; B95.61 Methicillin susceptible Staphylococcus aureus infection as the cause of diseases classified elsewhere; Z96.698 Presence of other orthopedic joint implants; Z79.2 Long term (current) use of antibiotics; Z79.899 Other long term (current) drug therapy
CPT/HCPCS: 97597

== ENCOUNTER → 2022-02-19 09:37 | Outpatient (CLI) | payer MEDICARE, OTHER, SELFPAY ==
[2021-12-24 11:32] VITALS: BMI 21.8
== END ==
PROVIDERS: PCP Nurse Practitioner; Referring Provider Orthopaedic Surgery Foot and Ankle Surgery; Visit Provider Surgery
DX: T81.31XA Disruption of external operation (surgical) wound, not elsewhere classified, initial encounter (principal); S81.801A Unspecified open wound, right lower leg, initial encounter; I73.9 Peripheral vascular disease, unspecified; Z96.698 Presence of other orthopedic joint implants; Z79.2 Long term (current) use of antibiotics; Z79.899 Other long term (current) drug therapy; T85.79XA Infection and inflammatory reaction due to other internal prosthetic devices, implants and grafts, initial encounter
CPT/HCPCS: 97597; 99212; 99213

== ENCOUNTER → 2022-02-25 14:59 | Outpatient (CLI) | payer MEDICARE, OTHER, SELFPAY ==
[2021-12-24 11:32] VITALS: BMI 21.8
== END ==
PROVIDERS: PCP Nurse Practitioner; Referring Provider Nurse Practitioner; Visit Provider Surgery
DX: S81.801A Unspecified open wound, right lower leg, initial encounter (principal); T85.79XA Infection and inflammatory reaction due to other internal prosthetic devices, implants and grafts, initial encounter; B95.61 Methicillin susceptible Staphylococcus aureus infection as the cause of diseases classified elsewhere; I73.9 Peripheral vascular disease, unspecified; Z96.698 Presence of other orthopedic joint implants; Z79.2 Long term (current) use of antibiotics; Z79.899 Other long term (current) drug therapy; R60.0 Localized edema
CPT/HCPCS: 97597

== ENCOUNTER → 2022-03-04 11:03 | Outpatient (CLI) | payer MEDICARE, OTHER, SELFPAY ==
[2021-12-24 11:32] VITALS: BMI 21.8
== END ==
PROVIDERS: PCP Nurse Practitioner; Referring Provider Nurse Practitioner; Visit Provider Surgery
DX: S81.801A Unspecified open wound, right lower leg, initial encounter (principal); T85.79XA Infection and inflammatory reaction due to other internal prosthetic devices, implants and grafts, initial encounter; B95.61 Methicillin susceptible Staphylococcus aureus infection as the cause of diseases classified elsewhere; R60.0 Localized edema; Z96.698 Presence of other orthopedic joint implants
CPT/HCPCS: 11042; 87070; 87075; 87077; 87147; 87186; 87205; 99213

== ENCOUNTER → 2022-03-09 12:14 | Outpatient (CLI) | payer MEDICARE, OTHER, SELFPAY ==
[2021-12-24 11:32] VITALS: BMI 21.8
--- NOTE | 2022-03-09 12:16 | DI.CT.S_ITS ---
PROCEDURE: CT CHEST ABD PEL WO CON INDICATIONS: lung cancer TECHNIQUE: After the administration of oral contrast, 5 mm thick sections acquired from the lung apices to the symphysis pubis. 5 mm thick coronal and sagittal reformats acquired, with additional 7 mm coronal MIP reformats through the lungs. For radiation dose reduction, the following was used: automated exposure control, adjustment of mA and/or kV according to patient size. COMPARISON: [facility], CT, CT ABDOMEN PELVIS WO CON, 12/06/2020, 15:56. [facility], CT, CT CHEST WO CON, 11/06/2021, 15:44. FINDINGS: Image quality: Excellent. CHEST: Lungs and pleura: The superior right hilar mass now measures 4.8 x 3.6 cm in diameter and previously measured 2.5 x 2.7 cm in the same plane. Spiculated mass lesions are redemonstrated within the right lower lobe, 1 is slightly decreased in size from the prior study previously measuring 1.3 cm in diameter and now measuring 1.0 cm in diameter and 1 is slightly increased in size from 0.7 cm in diameter to 0.9 cm in diameter. Scar rounded atelectasis is redemonstrated at the lateral right lung base. Calcified granulomas are present bilaterally. Previous trauma or surgical changes redemonstrated along the lateral left hemithorax. No acute airspace opacities. Mediastinum: Heart size is normal. No pericardial effusion. No mediastinal adenopathy by CT size criteria. Thoracic aorta and central pulmonary arteries are normal in size. Dense atheromatous calcifications are present within the aortic arch. Esophagus is normal in caliber. No hiatal hernia. Chest wall: There is a right Port-A-Cath, the tip of which is at the cavoatrial junction. No axillary or supraclavicular adenopathy by size criteria. Thyroid gland is unremarkable where visualized . ABDOMEN: Solid organs: Liver is normal in size. Gallbladder is surgically absent . Pancreas is normal in contours. Spleen is normal in size. No adrenal nodules. Both kidneys are normal in size, without hydronephrosis or nephrolithiasis. Peritoneum and bowel: Small and large bowel loops are normal in caliber and wall thickness. No free fluid or air. Nodes and vessels: No retroperitoneal or mesenteric adenopathy by size criteria. Aorta and inferior vena cava are normal in size. There are dense atheromatous calcifications throughout the aorta and iliac arteries bilaterally. Miscellaneous: No ventral hernias. PELVIS: Genitourinary: Bladder wall thickness is normal. Miscellaneous: No inguinal hernias or adenopathy. Bones: No suspicious bony lesions. No vertebral body compression fractures. IMPRESSION: 1. Increased size of the right superior hilar/periesophageal mass when compared with the CT from November 06, 2021. 2. 2 spiculated right lower lobe nodules, 1 of which has increased in size and 1 of which has decreased in size when compared with the prior study. 3. No new pulmonary lesions or other findings to suggest new metastatic disease. Dictated by: Shruti Sotomayor M.D. on 03/09/2022 at 15:01 Approved by: Shruti Sotomayor M.D. on 03/09/2022 at 16:17
== END ==
PROVIDERS: PCP Nurse Practitioner; Referring Provider Internal Medicine Hematology & Oncology; Visit Provider Internal Medicine Hematology & Oncology
DX: C34.11 Malignant neoplasm of upper lobe, right bronchus or lung (principal); R91.8 Other nonspecific abnormal finding of lung field
CPT/HCPCS: 71250; 74176

== ENCOUNTER → 2022-03-17 11:05 | Outpatient (CLI) | payer MEDICARE, OTHER, SELFPAY ==
[2021-12-24 11:32] VITALS: BMI 21.8
== END ==
PROVIDERS: PCP Nurse Practitioner; Referring Provider Orthopaedic Surgery Foot and Ankle Surgery; Visit Provider Surgery
DX: S81.801A Unspecified open wound, right lower leg, initial encounter (principal); T81.89XA Other complications of procedures, not elsewhere classified, initial encounter; R60.0 Localized edema
CPT/HCPCS: 99212

== ENCOUNTER → 2022-03-24 10:40 | Outpatient (CLI) | payer MEDICARE, OTHER, SELFPAY ==
[2021-12-24 11:32] VITALS: BMI 21.8
== END ==
PROVIDERS: PCP Nurse Practitioner; Referring Provider Orthopaedic Surgery Foot and Ankle Surgery; Visit Provider Surgery
DX: S81.801A Unspecified open wound, right lower leg, initial encounter (principal); T85.79XA Infection and inflammatory reaction due to other internal prosthetic devices, implants and grafts, initial encounter; Z96.698 Presence of other orthopedic joint implants; Z79.899 Other long term (current) drug therapy
CPT/HCPCS: 97597

== ENCOUNTER → 2022-04-01 11:12 | Outpatient (CLI) | payer MEDICARE, OTHER, SELFPAY ==
[2021-12-24 11:32] VITALS: BMI 21.8
== END ==
PROVIDERS: PCP Nurse Practitioner; Referring Provider Nurse Practitioner; Visit Provider Surgery
DX: S81.801A Unspecified open wound, right lower leg, initial encounter (principal); T85.79XA Infection and inflammatory reaction due to other internal prosthetic devices, implants and grafts, initial encounter; R60.0 Localized edema
CPT/HCPCS: 99213

== ENCOUNTER → 2022-04-09 12:47 | Outpatient (CLI) | payer MEDICARE, OTHER, SELFPAY ==
[2021-12-24 11:32] VITALS: BMI 21.8
--- NOTE | 2022-04-09 12:48 | DI.CT.S_ITS ---
PROCEDURE: CT CHEST WO CON INDICATIONS: lung cancer, sob TECHNIQUE: Noncontrast 5 mm thick sections acquired from the pulmonary apices to the posterior costophrenic angles. 1 mm lung window, 5 mm thick coronal and sagittal and 7 mm axial MIP reformats were then acquired. For radiation dose reduction, the following was used: automated exposure control, adjustment of mA and/or kV according to patient size. COMPARISON: [facility], [place], [place] PET CT FUSION SKULL 2 THIGH, 10/02/2020, 9:31. [facility], CT, CT CHEST WO CON, 09/11/2021, 14:00. [facility], CT, CT CHEST WO CON, 07/09/2021, 11:48. [place] PET CT FUSION SKULL 2 THIGH, 04/23/2021, 11:05. [facility], CT, CT CHEST ABD PEL WO CON, 03/09/2022, 13:51. [facility], CT, CT CHEST WO CON, 11/06/2021, 15:44. FINDINGS: Image quality: Excellent. Lungs and pleura: There is a mass in the right upper lobe posterior medially measuring 4.4 x 3.0 cm (series 2, image 18); previously 4.2 x 2.9 cm on 03/09/2022. Two spiculated mass lesions are identified, measuring 1.0 x 0.8 cm (series 3, image 186) and 1.1 x 0.8 cm (series 3, image 209), unchanged in size. There is a calcified nodule on the right hemidiaphragm and a calcified nodule in the left lower lobe, compatible with old granulomas. Moderate emphysema. There are scars and atelectasis in lingula and both lower lobes. No acute air space opacities. No pleural effusions or pneumothorax. Central and peripheral airways are patent and normal in caliber. Mediastinum: Heart size is normal. No pericardial effusion. Severe atherosclerosis. No mediastinal adenopathy by size criteria. Thoracic aorta and central pulmonary arteries are normal in size. Esophagus is normal in caliber. No hiatal hernia. Bones and chest wall: There are bilateral anterior nodular skin thickening over the breast and chest wall, unchanged. No suspicious bony lesions. Mild compression fracture of T2 is unchanged. No axillary or supraclavicular adenopathy by size criteria. Thyroid gland is not well seen. There is a Port-A-Cath in the right anterior chest with the tip in the proximal SVC. Abdomen: Multiple calcified granulomas are present in liver. Severe atherosclerosis. IMPRESSION: 1. Slight enlargement of the dominant left upper lobe posterior medial mass. 2. Stable right lower lobe spiculated nodules. 3. Stable appearance of nodular skin thickening over the anterior chest bilaterally. The finding may be secondary to asymmetric breast tissue. If clinically indicated, please correlate with mammography or breast ultrasound. 4. Stable mild compression fracture of T2. Dictated by: Raghav Castillo M.D. on 04/09/2022 at 15:29 Approved by: Raghav Castillo M.D. on 04/09/2022 at 15:53
== END ==
PROVIDERS: PCP Nurse Practitioner; Referring Provider Internal Medicine Hematology & Oncology; Visit Provider Internal Medicine Hematology & Oncology
DX: R91.8 Other nonspecific abnormal finding of lung field; M48.54XA Collapsed vertebra, not elsewhere classified, thoracic region, initial encounter for fracture; C34.11 Malignant neoplasm of upper lobe, right bronchus or lung
CPT/HCPCS: 71250

== ENCOUNTER → 2022-04-22 12:41 | Outpatient (CLI) | payer MEDICARE, OTHER, SELFPAY ==
[2021-12-24 11:32] VITALS: BMI 21.8
== END ==
PROVIDERS: PCP Nurse Practitioner; Visit Provider Nurse Practitioner
DX: S93.439A Sprain of tibiofibular ligament of unspecified ankle, initial encounter (principal); T84.7XXA Infection and inflammatory reaction due to other internal orthopedic prosthetic devices, implants and grafts, initial encounter
CPT/HCPCS: 87070; 87075; 87205

== ENCOUNTER → 2022-04-27 09:01 | Outpatient (CLI) | payer MEDICARE, OTHER, SELFPAY ==
[2021-12-24 11:32] VITALS: BMI 21.8
--- NOTE | 2022-04-27 | DI.US.S_ITS ---
PROCEDURE: US ABDOMEN LIMITED INDICATIONS: OTHER INTR-ABDOMINAL AND PELVIC MASS AND LUMP TECHNIQUE: Real-time scanning was performed of the abdominal and retroperitoneal organs, with image documentation. COMPARISON: [facility], US, US ABDOMEN COMPLETE, 11/06/2021, 16:10. FINDINGS: Liver: Liver is normal in size and homogeneous in echotexture. Gallbladder: Gallbladder is surgically absent. No abnormality is seen in gallbladder fossa. Biliary ducts: Intrahepatic bile ducts are non-dilated. Extrahepatic bile duct caliber measures 5.8 mm. Normal is 6-7 mm or less in diameter, or 10 mm or less post-cholecystectomy. Pancreas: Visualized portions of the pancreas are sonographically normal. IMPRESSION: 1. Prior cholecystectomy. No abnormality is seen in right upper quadrant abdomen. Dictated by: Adam Champion M.D. on 04/27/2022 at 10:29 Approved by: Adam Champion M.D. on 04/27/2022 at 10:32
== END ==
PROVIDERS: PCP Nurse Practitioner; Referring Provider Nurse Practitioner; Visit Provider Nurse Practitioner
DX: R19.09 Other intra-abdominal and pelvic swelling, mass and lump (principal); Z90.49 Acquired absence of other specified parts of digestive tract
CPT/HCPCS: 76705

== ENCOUNTER 2022-05-19 10:15 | Emergency (ER) | payer MEDICARE, OTHER, SELFPAY ==
[2021-12-24 11:32] VITALS: BMI 21.8
[2022-05-19] VITALS (25 sets, daily range): BP systolic 105–177; BP diastolic 63–98; PULSE 75–95; RESP 18–37; O2SAT 92–99; BMI 18.6
--- NOTE | 2022-05-19 10:37 | DI.CT.S_ITS ---
PROCEDURE: CT CERVICAL SPINE WO CON INDICATIONS: Polytrauma/fall TECHNIQUE: Noncontrast 3 mm thick sections acquired from the skull base to the T4 level. Sagittal and coronal reformats were then constructed. For radiation dose reduction, the following was used: automated exposure control, adjustment of mA and/or kV according to patient size. COMPARISON: [facility], CT, CT CHEST WO CON, 04/09/2022, 13:29. [facility], CT, CT CERVICAL SPINE WO CON, 03/25/2021, 15:55. FINDINGS: Image quality: Excellent. Bones: Decompressive laminectomies with instrumented posterolateral fusion noted from C2 C3 through the C7. The right lateral mass screw at T1 extends into right T1-2 neural foramen prosthetic lucency noted surrounding the lateral mass screws at C7 and T1 reflect loosening. There is now a wedge-shaped T1 compression fracture with increased height loss compared to the prior exam. No retropulsed fracture fragment. Osseous central canal is widely patent. Soft tissues: Right upper lobe pleural based mass lesion is similar prior CT chest 04/09/2022. Right-sided central venous line IMPRESSION: No evidence of fracture or traumatic injury. Widely decompressed central canal with instrumentation. Evidence of loosening in the lower lateral mass screw lower lateral mass screws noted as above. Approved by: Hay Newman M.D. on 05/19/2022 at 11:11
--- NOTE | 2022-05-19 10:37 | DI.CT.S_ITS ---
PROCEDURE: CT HEAD/BRAIN WO CON INDICATIONS: Polytrauma/fall TECHNIQUE: Noncontrast 4.5 mm thick angled axial sections acquired from the foramen magnum to the vertex, with coronal and sagittal reformats. For radiation dose reduction, the following was used: automated exposure control, adjustment of mA and/or kV according to patient size. COMPARISON: [facility], CT, CT HEAD/BRAIN WO CON, 11/23/2021, 12:51. FINDINGS: Image quality: Excellent. CSF spaces: Basal cisterns are patent. No extra-axial fluid collections. Ventricles are normal in size and shape. Brain: No midline shift. No intracranial masses or hemorrhage. Chu-white matter interface is normal. Moderate atrophy and white matter chronic ischemic change Skull and face: Calvarium and visualized facial bones are intact, without suspicious lesions. Bilateral intraocular lens replacements noted. Sinuses: Visualized sinuses and mastoids are clear. IMPRESSION: Atrophy and chronic ischemic change without intracranial hemorrhage or mass effect Approved by: Hay Newman M.D. on 05/19/2022 at 10:49
--- NOTE | 2022-05-19 10:38 | ED.FALL ---
HPI - Fall General Chief Complaint: Trauma Stated Complaint: GLF Time Seen by Provider: 05/19/22 10:30 Source: patient and EMS Mode of arrival: EMS History of Present Illness HPI Narrative: Patient brought here by ambulance from home. Daughter at bedside. Patient here for head injury. Patient here for dizziness as well. Patient took her nighttime meds to help her sleep at 11:00 p.m. last night. It was later than she usually does. She gets up regularly each night to go to urinate. This morning at 2:30 a.m. she was using the wall like she usually does do get to the bathroom in the hallway. She did mention to her daughter she was lightheaded before falling later in the morning she mentioned this. She states she ran out of wall and fell down. Hit her head on the left and right side. No loss of consciousness. No nausea or vomiting. Patient did not want to go to the emergency department last night. She went to back to bed after daughter assessed her. She seemed herself according to daughter. However this morning when patient got up she felt lightheaded again. She went to the bathroom with the help of daughter. In the bathroom, patient became lightheaded and did not pass out but was held up by daughter. She did urinate. Daughter states patient has lost lot of weight and has not been eating and drinking very much. No dysuria no hematuria no black or bloody stools. Patient is not on any blood thinner. Patient only complains of scalp pain no other injury or pain. No arms legs hips pelvis back chest abdomen pain. No neck pain. Patient is orthostatic on doing blood pressures here. Her blood pressure did lower significantly. And she got dizzy. Patient is awake alert oriented x3 at this time. Related Data Home Medications Medication Instructions Recorded Confirmed cyclosporine 0.05 % eye drops in a 1 drop EYE-BOTH BID 05/04/18 05/11/22 dropperette (Restasis) aspirin 81 mg tablet,delayed 81 mg PO DAILY 01/20/19 05/11/22 release gabapentin 400 mg capsule 400 mg PO DAILY 03/05/22 05/11/22 metoprolol tartrate 25 mg tablet 25 mg PO DAILY 03/05/22 05/11/22 Previous Rx's Medication Instructions Recorded Disabled Parking Placard #1 ea 05/04/18 acetaminophen 325 mg capsule 650 mg PO QID PRN pain #60 caps 08/05/21 (Tylenol) mirtazapine 15 mg tablet 15 mg PO BEDTIME #90 tabs 10/08/21 amitriptyline 50 mg tablet 50 mg PO BEDTIME #90 tabs 11/05/21 lactulose 20 gram/30 mL oral 20 g (30 mL) PO BID constipation 11/27/21 solution #1,200 mL acetaminophen 325 mg tablet 650 mg PO Q6HR PRN Fever/Mild Pain 12/27/21 (1-3) #30 tabs atorvastatin 20 mg tablet (Lipitor) 40 mg PO BEDTIME #30 tabs 12/27/21 melatonin 3 mg tablet 9 mg PO BEDTIME #30 tabs 12/27/21 oxycodone 5 mg tablet 5 mg PO Q3HR PRN Pain, Moderate 12/27/21 (4-6) #10 tabs levothyroxine 75 mcg tablet 75 mcg PO DAILY #90 tabs 04/21/22 Allergies Allergy/AdvReac Type Severity Reaction Status Date / Time Iodinated Contrast Media Allergy Severe ANAPHYLAXIS Verified 04/22/22 11:36 [IODINATED CONTRAST MEDIA - IV DYE] ampicillin [AMPICILLIN] AdvReac Severe BLOODY Verified 04/22/22 11:36 DIARRHEA oxycodone [OXYCODONE] AdvReac Intermediate MAKES ME Verified 04/22/22 11:36 MEAN, CHANGE OF PERSONALITY adhesive [ADHESIVE] AdvReac Mild REDNESS Verified 04/22/22 11:36 Review of Systems Review of Systems Narrative: GENERAL: negative chills, fatigue, malaise, fever, sweats. HEENT: negative sinus pain, ear pain, sore throat RESPIRATORY: negative dyspnea, cough CARDIOVASCULAR: negative chest pain, palpitations GASTROINTESTINAL: negative nausea, vomiting, abdominal pain : negative dysuria, frequency, hematuria MUSCULOSKELETAL: negative muscle or bony pain SKIN: negative rash, skin lesions NEUROLOGIC: negative weakness, numbness, positive dizziness ROS Unobtainable: All systems reviewed & are unremarkable except as noted in HPI and below 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) GERD (gastroesophageal reflux disease) Heart murmur History of aortic valve replacement with bioprosthetic valve (10/23/10) Hyperlipidemia Hypertension Hypothyroidism Macular degeneration Malignant neoplasm of lung Mitral valve disorder Neuropathy Nocturnal hypoxia Non Hodgkin's lymphoma Osteoarthritis (07/23/10) Osteoporosis (~2015) Peripheral neuropathy Pulmonary embolism Raynaud's disease (05/17/12) 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) Surgical History H/O total hysterectomy History of appendectomy History of cataract removal with insertion of prosthetic lens (2008) History of cholecystectomy History of lumpectomy of left breast History of lung surgery (1994) History of removal of Port-a-Cath (07/04/17) History of surgery Hx of aortic valve replacement (06/22/13) Hx of fusion of cervical spine (~03/2004) Hx of fusion of cervical spine (02/2006) Hx of hysterectomy (~04/1987) Status post cholecystectomy (08/22/09) Family History Mother Cancer Colon cancer Heart disease Father Lung cancer Brother Lung cancer Sister CVA (cerebral vascular accident) Heart disease Daughter Myocardial infarction Social History marital status: unknown household members: none Smoking Status: Former smoker Tobacco: How many years used: 50 second hand exposure: Yes alcohol intake: current substance use type: does not use Smoking Status: Former smoker alcohol intake frequency: a few times a week Substance Use Type: does not use Exam Narrative Exam Narrative: GENERAL: in no distress, not toxic not dyspneic HEAD: Normocephalic. There is bruising/ecchymosis as edema to the left parietal scalp. Mild tenderness but no crepitus or step-off. Mild tenderness to the right parietal scalp but no crepitus or step-off. EYES: Pupils equal round ENT: Mucous membranes moist. NECK: Trachea midline. No midline tenderness or step-off of the cervical thoracic or lumbar spine. CARDIOVASCULAR: Regular rate and rhythm without murmurs RESPIRATORY: Clear to auscultation. Breath sounds equal bilaterally. No wheezes, rales, or rhonchi. GASTROINTESTINAL: Abdomen soft, non-tender EXTREMITIES: No gross deformities. Nontender bilateral shoulders elbows wrists pelvis hips knees and ankles. No gross deformities. BACK: No flank tenderness. NEURO: AOx4. Clear speech no facial droop light touch intact bilateral face and hands. Fast exam is negative. 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 SKIN: Warm and dry, no bruising seen on the back PSYCH: Not anxious, is cooperative Initial Vital Signs Initial Vital Signs: Vital Signs Pulse Rate 77 05/19/22 10:18 Blood Pressure 157/73 H 05/19/22 10:18 Pulse Oximetry 93 05/19/22 10:18 Course Orders Ordered: Discontinued Medications Sodium Chloride (Normal Saline 0.9%) 500 mls @ 1,000 mls/hr IV BOLUS ONE Stop: 05/19/22 11:13 Last Infusion: 05/19/22 12:11 Dose: 0 mls/hr Documented By: Admin: 05/19/22 11:15 Dose: 1,000 mls/hr Documented By: JESS Sodium Chloride (Normal Saline 0.9%) 500 mls @ 1,000 mls/hr IV BOLUS ONE Stop: 05/19/22 13:30 Last Infusion: 05/19/22 14:12 Dose: 0 mls/hr Documented By: Admin: 05/19/22 13:05 Dose: 1,000 mls/hr Documented By: TAYLOR Vital Signs Vital signs: Vital Signs - 8 hr 05/19/22 10:24 05/19/22 10:50 05/19/22 10:18 Pulse Rate 75 Pulse Rate [Orthostatic Lying] 82 Pulse Rate [Orthostatic Sitting] 85 Pulse Rate [Orthostatic Standing] 86 Respiratory Rate 18 Blood Pressure 157/73 H 157/73 H Blood Pressure [Orthostatic Lying] 169/98 H Blood Pressure [Orthostatic Sitting] 146/69 H Blood Pressure [Orthostatic Standing] 105/67 Pulse Oximetry 95 Oxygen Delivery Method Room Air 05/19/22 10:18 05/19/22 10:19 05/19/22 10:19 Pulse Rate 77 75 Pulse Rate [Orthostatic Lying] Pulse Rate [Orthostatic Sitting] Pulse Rate [Orthostatic Standing] Respiratory Rate 28 H Blood Pressure 144/77 H Blood Pressure [Orthostatic Lying] Blood Pressure [Orthostatic Sitting] Blood Pressure [Orthostatic Standing] Pulse Oximetry 93 95 Oxygen Delivery Method 05/19/22 10:30 05/19/22 10:30 05/19/22 10:43 Pulse Rate 76 Pulse Rate [Orthostatic Lying] Pulse Rate [Orthostatic Sitting] Pulse Rate [Orthostatic Standing] Respiratory Rate 20 Blood Pressure 162/85 H 169/98 H Blood Pressure [Orthostatic Lying] Blood Pressure [Orthostatic Sitting] Blood Pressure [Orthostatic Standing] Pulse Oximetry 95 Oxygen Delivery Method 05/19/22 10:43 05/19/22 10:46 05/19/22 10:46 Pulse Rate 82 84 Pulse Rate [Orthostatic Lying] Pulse Rate [Orthostatic Sitting] Pulse Rate [Orthostatic Standing] Respiratory Rate Blood Pressure 146/69 H Blood Pressure [Orthostatic Lying] Blood Pressure [Orthostatic Sitting] Blood Pressure [Orthostatic Standing] Pulse Oximetry 96 96 Oxygen Delivery Method 05/19/22 10:47 05/19/22 10:47 05/19/22 11:00 Pulse Rate 86 81 Pulse Rate [Orthostatic Lying] Pulse Rate [Orthostatic Sitting] Pulse Rate [Orthostatic Standing] Respiratory Rate Blood Pressure 105/67 Blood Pressure [Orthostatic Lying] Blood Pressure [Orthostatic Sitting] Blood Pressure [Orthostatic Standing] Pulse Oximetry 95 94 Oxygen Delivery Method 05/19/22 11:25 05/19/22 12:00 05/19/22 12:00 Pulse Rate 83 82 Pulse Rate [Orthostatic Lying] Pulse Rate [Orthostatic Sitting] Pulse Rate [Orthostatic Standing] Respiratory Rate 20 21 Blood Pressure 177/86 H 168/82 H Blood Pressure [Orthostatic Lying] Blood Pressure [Orthostatic Sitting] Blood Pressure [Orthostatic Standing] Pulse Oximetry 99 98 Oxygen Delivery Method 05/19/22 12:50 05/19/22 12:30 05/19/22 12:30 Pulse Rate 86 Pulse Rate [Orthostatic Lying] 91 H Pulse Rate [Orthostatic Sitting] 93 H Pulse Rate [Orthostatic Standing] 90 Respiratory Rate 23 Blood Pressure 170/78 H Blood Pressure [Orthostatic Lying] 108/63 Blood Pressure [Orthostatic Sitting] 164/72 H Blood Pressure [Orthostatic Standing] 164/78 H Pulse Oximetry Oxygen Delivery Method 05/19/22 12:42 05/19/22 12:42 05/19/22 12:45 Pulse Rate 90 92 H Pulse Rate [Orthostatic Lying] Pulse Rate [Orthostatic Sitting] Pulse Rate [Orthostatic Standing] Respiratory Rate 34 H 24 Blood Pressure 164/78 H Blood Pressure [Orthostatic Lying] Blood Pressure [Orthostatic Sitting] Blood Pressure [Orthostatic Standing] Pulse Oximetry 92 Oxygen Delivery Method 05/19/22 12:45 05/19/22 12:47 05/19/22 12:47 Pulse Rate 94 H Pulse Rate [Orthostatic Lying] Pulse Rate [Orthostatic Sitting] Pulse Rate [Orthostatic Standing] Respiratory Rate 23 Blood Pressure 164/72 H 108/63 Blood Pressure [Orthostatic Lying] Blood Pressure [Orthostatic Sitting] Blood Pressure [Orthostatic Standing] Pulse Oximetry 94 Oxygen Delivery Method 05/19/22 13:00 05/19/22 13:30 05/19/22 13:59 Pulse Rate 93 H 93 H 92 H Pulse Rate [Orthostatic Lying] Pulse Rate [Orthostatic Sitting] Pulse Rate [Orthostatic Standing] Respiratory Rate 28 H 37 H 24 Blood Pressure Blood Pressure [Orthostatic Lying] Blood Pressure [Orthostatic Sitting] Blood Pressure [Orthostatic Standing] Pulse Oximetry 96 93 94 Oxygen Delivery Method 05/19/22 13:59 05/19/22 14:00 05/19/22 14:00 Pulse Rate 92 H Pulse Rate [Orthostatic Lying] Pulse Rate [Orthostatic Sitting] Pulse Rate [Orthostatic Standing] Respiratory Rate 25 H Blood Pressure 153/74 H 146/76 H Blood Pressure [Orthostatic Lying] Blood Pressure [Orthostatic Sitting] Blood Pressure [Orthostatic Standing] Pulse Oximetry 94 Oxygen Delivery Method 05/19/22 14:30 05/19/22 14:30 05/19/22 15:00 Pulse Rate 92 H Pulse Rate [Orthostatic Lying] Pulse Rate [Orthostatic Sitting] Pulse Rate [Orthostatic Standing] Respiratory Rate 25 H Blood Pressure 134/69 136/64 Blood Pressure [Orthostatic Lying] Blood Pressure [Orthostatic Sitting] Blood Pressure [Orthostatic Standing] Pulse Oximetry 95 Oxygen Delivery Method 05/19/22 15:00 05/19/22 15:30 05/19/22 15:30 Pulse Rate 95 H 94 H Pulse Rate [Orthostatic Lying] Pulse Rate [Orthostatic Sitting] Pulse Rate [Orthostatic Standing] Respiratory Rate 24 25 H Blood Pressure 171/79 H Blood Pressure [Orthostatic Lying] Blood Pressure [Orthostatic Sitting] Blood Pressure [Orthostatic Standing] Pulse Oximetry 97 95 Oxygen Delivery Method 05/19/22 16:00 05/19/22 16:00 05/19/22 16:30 Pulse Rate 91 H Pulse Rate [Orthostatic Lying] Pulse Rate [Orthostatic Sitting] Pulse Rate [Orthostatic Standing] Respiratory Rate 24 Blood Pressure 164/78 H 143/63 H Blood Pressure [Orthostatic Lying] Blood Pressure [Orthostatic Sitting] Blood Pressure [Orthostatic Standing] Pulse Oximetry 96 Oxygen Delivery Method 05/19/22 16:30 Pulse Rate 91 H Pulse Rate [Orthostatic Lying] Pulse Rate [Orthostatic Sitting] Pulse Rate [Orthostatic Standing] Respiratory Rate 24 Blood Pressure Blood Pressure [Orthostatic Lying] Blood Pressure [Orthostatic Sitting] Blood Pressure [Orthostatic Standing] Pulse Oximetry 94 Oxygen Delivery Method Room Air MDM - Fall Lab Data 05/19/22 10:25 05/19/22 10:25 Labs: Lab Results 05/19/22 05/19/22 05/19/22 Range/Units 10:25 10:25 10:58 WBC 5.5 (4.5-11.0) X10^3/uL RBC 4.23 (4.0-5.2) X10^6/uL Hgb 11.2 L (12.0-16.0) g/dL Hct 33.7 L (36-46) % MCV 79.6 L (80-100) fL MCH 26.6 (26-34) PG MCHC 33.4 (30-36) % RDW 27.7 H (11.6-14.8) % Plt Count 211 (150-400) X10^3/uL Neut % (Auto) 63.9 (50-75) % Lymph % (Auto) 22.3 L (25-40) % Johnson % (Auto) 9.7 (3-14) % Eos % (Auto) 2.4 (2-4) % Baso % (Auto) 1.7 (0-2) % Neut # (Auto) 3500 (1541-7722) /uL Lymph # (Auto) 1200 (7387-2563) /uL Johnson # (Auto) 500 (0-900) /uL Eos # (Auto) 100 (0-450) /uL Baso # (Auto) 100 (0-100) /uL RBC Morphology See below Anisocytosis 2+ H Microcytosis 1+ H Target Cells 1+ H Ovalocytes 1+ H Sodium 132 L (137-145) mmol/L Potassium 3.6 (3.4-5.1) mmol/L Chloride 93 L (98-107) mmol/L Carbon Dioxide 33 H (22-32) mmol/L BUN 15 (7-17) mg/dL Creatinine 0.53 (0.52-1.04) mg/dL Estimated GFR > 60 (>60) mL/min BUN/Creatinine Ratio 28.3 H (6-22) Glucose 79 L (80-110) mg/dL Calcium 8.9 (8.4-10.2) mg/dL Total Bilirubin 0.5 (0.2-1.3) mg/dL AST 37 H (14-36) IU/L ALT 13 (<35) IU/L Alkaline Phosphatase 76 (38-126) U/L Troponin I < 0.012 (0.01-0.034) ng/mL Total Protein 6.1 L (6.3-8.2) g/dL Albumin 3.4 L (3.5-5.0) g/dL Globulin 2.7 (1.7-4.1) g/dL Albumin/Globulin Ratio 1.3 (1.0-2.8) Urine Color Yellow Urine Appearance Sl cloudy Urine pH 6.0 (4.5-8.0) Ur Specific [place] 1.010 (1.000-1.035) Urine Protein Negative (Negative) Urine Glucose (UA) Negative (Negative) g/dL Urine Ketones Negative (NEGATIVE) Urine Occult Blood Negative (Negative) Urine Nitrate Negative (Negative) Urine Bilirubin Negative (NEGATIVE) Urine Urobilinogen 1.0 (0.2) E.U./dL Ur Leukocyte Esterase 1+ H (NEGATIVE) Urine RBC None seen (0-5/HPF) Urine WBC 1-5/hpf (0-5/HPF) Ur Squamous Epith Cells 1-5 /hpf (0-5/HPF) Urine Bacteria None seen (None) Hyaline Casts 5-10/lpf (None) Urine Mucus 1+ H (Negative) Ur Culture Indicated? Specimen cultured Imaging Data CT scan - head: Radiologist's Impression: [address] [address] [address] Scan Report Signed Patient: Fabien Xiong MR#: [id number] : 1940 Acct:[id number] Age/Sex: 81 / F Date of Service: 05/19/22 Loc: ED Accession Number: [id number] ?? Procedure: CT head/brain wo con Ordering Provider: Walter Beyer MD PROCEDURE:? CT HEAD/BRAIN WO CON ? INDICATIONS:? Polytrauma/fall ? TECHNIQUE:? Noncontrast 4.5 mm thick angled axial sections acquired from the foramen magnum to the vertex, with coronal and sagittal reformats.? For radiation dose reduction, the following was used:? automated exposure control, adjustment of mA and/or kV according to patient size.? ? COMPARISON:? [facility], CT, CT HEAD/BRAIN WO CON, 11/23/2021, 12:51. ? FINDINGS:? Image quality:? Excellent.? ? CSF spaces:? Basal cisterns are patent.? No extra-axial fluid collections.? Ventricles are normal in size and shape.? ? Brain:? No midline shift.? No intracranial masses or hemorrhage.? Chu-white matter interface is normal.? Moderate atrophy and white matter chronic ischemic change ? Skull and face:? Calvarium and visualized facial bones are intact, without suspicious lesions.? Bilateral intraocular lens replacements noted. ? Sinuses:? Visualized sinuses and mastoids are clear.? ? IMPRESSION:? Atrophy and chronic ischemic change without intracranial hemorrhage or mass effect ? ? ? Approved by: Hay Newman M.D. on 05/19/2022 at 10:49? CT - cervical spine: Radiologist's Impression: [place] [address] CT Scan Report Signed Patient: Fabien Xiong MR#: [id number] : 1940 Acct:[id number] Age/Sex: 81 / F Date of Service: 05/19/22 Loc: ED Accession Number: [id number] ?? Procedure: CT cervical spine wo con Ordering Provider: Walter Beyer MD PROCEDURE:? CT CERVICAL SPINE WO CON ? INDICATIONS:? Polytrauma/fall ? TECHNIQUE:? Noncontrast 3 mm thick sections acquired from the skull base to the T4 level.? Sagittal and coronal reformats were then constructed.? For radiation dose reduction, the following was used:? automated exposure control, adjustment of mA and/or kV according to patient size.? ? COMPARISON:? [facility], CT, CT CHEST WO [facility], 04/09/2022, 13:29.? [facility], CT, CT CERVICAL SPINE WO [facility], 03/25/2021, 15:55. ? FINDINGS:? Image quality:? Excellent.? ? Bones:? Decompressive laminectomies with instrumented posterolateral fusion noted from C2 C3 through the C7.? The right lateral mass screw at T1 extends into right T1-2 neural foramen prosthetic lucency noted surrounding the lateral mass screws at C7 and T1 reflect loosening. ? There is now a wedge-shaped T1 compression fracture with increased height loss compared to the prior exam.? No retropulsed fracture fragment.? Osseous central canal is widely patent. ? Soft tissues:? Right upper lobe pleural based mass lesion is similar prior CT chest 04/09/2022.? Right-sided central venous line ? ? IMPRESSION:? ? No evidence of fracture or traumatic injury.? ? Widely decompressed central canal with instrumentation.? Evidence of loosening in the lower lateral mass screw lower lateral mass screws noted as above.? Approved by: Hay Newman M.D. on 05/19/2022 at 11:11? [facility] Narrative Medical decision making narrative: Patient brought here by ambulance from home. Daughter at bedside. Patient here for head injury. Patient here for dizziness as well. Patient took her nighttime meds to help her sleep at 11:00 p.m. last night. It was later than she usually does. She gets up regularly each night to go to urinate. This morning at 2:30 a.m. she was using the wall like she usually does do get to the bathroom in the hallway. She did mention to her daughter she was lightheaded before falling later in the morning she mentioned this. She states she ran out of wall and fell down. Hit her head on the left and right side. No loss of consciousness. No nausea or vomiting. Patient did not want to go to the emergency department last night. She went to back to bed after daughter assessed her. She seemed herself according to daughter. However this morning when patient got up she felt lightheaded again. She went to the bathroom with the help of daughter. In the bathroom, patient became lightheaded and did not pass out but was held up by daughter. She did urinate. Daughter states patient has lost lot of weight and has not been eating and drinking very much. No dysuria no hematuria no black or bloody stools. Patient is not on any blood thinner. Patient only complains of scalp pain no other injury or pain. No arms legs hips pelvis back chest abdomen pain. No neck pain. Patient is orthostatic on doing blood pressures here. Her blood pressure did lower significantly. And she got dizzy. Patient is awake alert oriented x3 at this time. After history and exam CBC CMP troponin EKG CT head and cervical spine and orthostatics and IV fluids ordered, as well as urinalysis MDM CC: Fall/dizziness Complicating co-morbidities: Decreased oral intake/weight loss Data collected from: EMS/patient/daughter Medical records reviewed: No recent visits for fall Differential considered: Includes but not limited to dehydration/UTI/intracranial hemorrhage/skull fracture/arrhythmia/TN/stroke Exam documented above, pertinent findings include: Scalp hematoma/positive orthostatic Lab Test results independently reviewed as above. Pertinent findings: Urinalysis negative leukocytes negative nitrates negative ketones CBC 5.5 hemoglobin 11.2 hematocrit 33.7, sodium 132 potassium 3.6 bicarb 33 BUN 15 creatinine 0.5 glucose 79, troponin less than 0.012 AST 37 ALT 13 Independently reviewed EKG as above normal sinus rhythm rate [address] elevation or depression Imaging studies independently reviewed: CT head CT cervical spine no acute process, there is loosening of hardware in the cervical spine hardware Consults: 4:30 p.m.. I spoke with Dr. Epps, he has reviewed the imaging. These are incidental findings. Patient can follow up with their clinic. Treatments: IV fluids Re-evaluations: 1:00 p.m.. Reviewed results with patient and family. At this time patient does not have any neck pain. However hardware on CT shows loosening. No fracture. There is fracture that likely is chronic due to lack of pain or tenderness to the cervical spine. Reviewed orthostatics with patient and family/daughter. This does correlate with patient's decreased oral intake and hydration. Return precautions reviewed with them. They will follow up with Neurosurgery services. She had C-spine surgery in 2005. At [facility]. She has been doing very well since then. This is likely incidental finding. Patient's nerve problems and walking problems started back in 2005 and that is why she has problems walking now which is chronic. Discussion: Appropriate for discharge home. Patient falling and dizziness likely due to decreased oral intake and hydration. Patient improved with IV hydration here. Reviewed with patient and daughter they agree for follow up with primary care and [facility] neurosurgical services regarding findings today. Return precautions reviewed with them. They desire discharge home Diagnosis: Scalp hematoma Discharge Plan Departure Patient Disposition: Home Clinical Impression: Hematoma of parietal scalp, Orthostatic dizziness Instructions: DI for Orthostatic Hypotension, DI for Hematoma (Bruise), DI for Trauma, DI for Closed Head Injury Activity Restrictions/Additional Instructions: Please do keep well hydrated. Your symptoms for dizziness likely due to not drinking enough fluids. Your found that you do enjoy drinking ensure drinks here and I would encourage you to continue. See family doctor this week for re-evaluation. Return if worse if any questions or concerns. Please do continue home medications. Please do call [facility] neurosurgical services regarding findings on your CT scan of your neck with the loose hardware after surgical site. This is incidental finding today. But you will need to follow up in their clinic for re-evaluation. Prescriptions: No Action Restasis 0.05 % dropperette 1 drop EYE-BOTH BID (DME) Disabled Parking Placard Qty: 1 0RF Dose Instruction: As directed Rx Instructions: Patient qualifies for Disabled Parking Placard levothyroxine 75 mcg tablet 75 mcg PO DAILY Qty: 90 0RF Rx Instructions: Due for repeat TSH in 3 months prior to additional refills mirtazapine 15 mg tablet 15 mg PO BEDTIME Qty: 90 3RF amitriptyline 50 mg tablet 50 mg PO BEDTIME Qty: 90 3RF Rx Instructions: Take 1 tab at bedtime daily for sleep. gabapentin 400 mg capsule 400 mg PO DAILY Rx Instructions: Take 1 cap each am and afternoon for pain relief. metoprolol tartrate 25 mg tablet 25 mg PO DAILY acetaminophen [Tylenol] 325 mg capsule 650 mg PO QID PRN (Reason: pain) Qty: 60 0RF aspirin 81 mg Tablet,Delayed Release (Dr/Ec) 81 mg PO DAILY lactulose 20 gram/30 mL solution 20 g PO BID Qty: 1200 0RF acetaminophen 325 mg Tablet 650 mg PO Q6HR PRN (Reason: Fever/Mild Pain (1-3)) Qty: 30 0RF atorvastatin [Lipitor] 20 mg Tablet 40 mg PO BEDTIME Qty: 30 0RF melatonin 3 mg Tablet 9 mg PO BEDTIME Qty: 30 0RF oxycodone 5 mg Tablet 5 mg PO Q3HR PRN (Reason: Pain, Moderate (4-6)) Qty: 10 0RF Referrals: Arabella Patel ARNP [Primary Care Provider] - Stand Alone Forms: Patient Portal/API
[2022-05-19 11:00] LABS: Basophils Absolute Auto 100 /uL (0-100); Basophils Percent Auto 1.7 % (0-2); Eosinophils Absolute Auto 100 /uL (0-450); Eosinophils Percent Auto 2.4 % (2-4); Hematocrit 33.7 % (36-46); Hemoglobin 11.2 g/dL (12.0-16.0); Lymphocytes Absolute Auto 1200 /uL (1100-4500); Lymphocytes Percent Auto 22.3 % (25-40); Mean Corpuscular HGB Conc 33.4 % (30-36); Mean Corpuscular Hemoglobin 26.6 PG (26-34); Mean Corpuscular Volume 79.6 fL (80-100); Monocytes Absolute Auto 500 /uL (0-900); Monocytes Percent Auto 9.7 % (3-14); Neutrophils Absolute Auto 3500 /uL (1500-7000); Neutrophils Percent Auto 63.9 % (50-75); Platelet Count 211 X10^3/uL (150-400); Red Blood Cell Count 4.23 X10^6/uL (4.0-5.2); Red Cell Distribution Width 27.7 % (11.6-14.8); White Blood Cell Count 5.5 X10^3/uL (4.5-11.0)
[2022-05-19 11:02] LABS: Add Manual Diff / Slide Review SLIDE REVIEW
[2022-05-19 11:03] LABS: Alanine Aminotransferase 13 IU/L (<35); Albumin 3.4 g/dL (3.5-5.0); Albumin Globulin Ratio 1.3 (1.0-2.8); Alkaline Phosphatase 76 U/L (38-126); Aspartate Aminotransferase 37 IU/L (14-36); BUN Creatinine Ratio 28.3 (6-22); Bilirubin Total 0.5 mg/dL (0.2-1.3); Blood Urea Nitrogen 15 mg/dL (7-17); Calcium 8.9 mg/dL (8.4-10.2); Carbon Dioxide 33 mmol/L (22-32); Chloride 93 mmol/L (98-107); Estimated Glomerular Filt Rate > 60 mL/min (>60); Globulin 2.7 g/dL (1.7-4.1); Glucose 79 mg/dL (80-110); HEMOLYSIS 50 (0-50); Potassium 3.6 mmol/L (3.4-5.1); Sodium 132 mmol/L (137-145); Total Protein 6.1 g/dL (6.3-8.2)
[2022-05-19 11:05] LABS: Appearance Urine UA SL CLOUDY; Bilirubin Urine UA NEGATIVE (NEGATIVE); Color Urine UA YELLOW; Glucose Urine UA NEGATIVE (Negative); Ketones Urine UA NEGATIVE (NEGATIVE); Leukocyte Esterase Urine UA 1+ (NEGATIVE); Nitrite Urine UA NEGATIVE (Negative); Occult Blood Urine UA NEGATIVE (Negative); Protein Urine UA NEGATIVE (Negative)
[2022-05-19 11:14] LABS: Bacteria Urine None Seen; Culture Indicated Urine Specimen Cultured; Hyaline Casts Urine 5-10/LPF; Mucus Urine 1+ (Negative); RBC Urine None Seen (0-5/HPF); Squamous Epithelial Cell Urine 1-5 /HPF (0-5/HPF); WBC Urine 1-5/HPF (0-5/HPF)
[2022-05-19 11:15] LABS: Troponin I < 0.012 ng/mL (0.01-0.034)
[2022-05-19] MEDS: SODIUM CHLORIDE 0.9% 500 ML 1000 ML IV ×2 (11:15→13:05)
[2022-05-19 11:20] LABS: Anisocytosis 2+; Microcytosis 1+
[2022-05-19 11:21] LABS: Ovalocytes 1+; Target Cells 1+
== END 2022-05-19 17:27 | disposition home or self-care (01) ==
PROVIDERS: Emergency Provider Emergency Medicine; PCP Nurse Practitioner
DX: S00.03XA Contusion of scalp, initial encounter (principal); I95.1 Orthostatic hypotension; R42 Dizziness and giddiness; Z79.899 Other long term (current) drug therapy; W18.30XA Fall on same level, unspecified, initial encounter
CPT/HCPCS: 70450; 72125; 80053; 81003; 81015; 84484; 85025; 87086; 93005; 96360; 96361; 99284; 99285

== ENCOUNTER → 2022-06-26 13:55 | Outpatient (CLI) | payer MEDICARE, OTHER, SELFPAY ==
[2022-06-02 16:27] VITALS: BMI 21.8
== END ==
PROVIDERS: PCP Nurse Practitioner; Referring Provider Nurse Practitioner; Visit Provider Nurse Practitioner Family
DX: I73.00 Raynaud's syndrome without gangrene (principal); G60.9 Hereditary and idiopathic neuropathy, unspecified; Z71.1 Person with feared health complaint in whom no diagnosis is made; Z87.81 Personal history of (healed) traumatic fracture
CPT/HCPCS: 99212; 99213

== ENCOUNTER 2022-12-16 08:02 | Day surgery (SDC) | payer MEDICARE, OTHER, SELFPAY ==
[2022-10-22 11:14] VITALS: BMI 21.8
[2022-12-14 14:33] VITALS: BMI 16.1
[2022-12-16] VITALS (9 sets, daily range): BP systolic 101–163; BP diastolic 60–90; PULSE 77–97; RESP 16–26; TEMP 36.2–36.8; O2SAT 93–98; BMI 16.1
[2022-12-16] MEDS: LACTATED RINGERS 1,000 ML 100 ML IV (08:22)
--- NOTE | 2022-12-16 09:37 | PM.PREOP ---
Pre-operative Note Interval Note History & Physical reviewed/Exam performed by Physician: Yes Changes to H&P: No
[2022-12-16] MEDS: CLINDAMYCIN 600 MG/50 ML PIGGYBACK 50 MG IV (10:15)
--- NOTE | 2022-12-16 10:41 | SUR.OPER ---
Supine on padded OR bed, head on pillow, arms secured on padded arm boards at <90 degrees abduction, legs uncrossed, safety belt at thigh, tape over blanket over lower legs.
[2022-12-16] MEDS: HEPARIN 5,000 UNIT/ML VIAL 5000 UNIT SUBCUT (11:03)
[2022-12-16] MEDS: BUPIVACAINE 0.25% (PF) VIAL 30 ML INJ (11:05)
--- NOTE | 2022-12-16 11:21 | PM.OP.1 ---
Operative Date/Time/Diagnoses Date of procedure: 12/16/22 Time of procedure: 11:21 Pre-op diagnosis: Port-A-Cath in place Lung cancer Post-op diagnosis: same Procedure & Clinicians Procedure: Removal of right chest wall Port-A-Cath. Attempted placement left-sided Eios-V-Mryb-unsuccessful Same procedure as scheduled: Yes Indications: 82-year-old woman with advanced right lung cancer with cachexia has a right chest Port-A-Cath eroding through the skin. She is here for removal of this port and placement of a left-sided port Surgeon: John Lance Click Yes if Unassisted: Yes Anesthesia Type: Sedation Operative Notes Specimen(s): none sent Estimated Blood Loss (mL): 5 Procedure in detail: Patient was brought to the operating placed supine on the table. Bilateral lower extremity compression devices were applied. Sedation was administered by anesthesia. She was prepped and draped in sterile fashion. Time-out was performed. She received antibiotics prior to skin incision. Incision over the right chest wall Port-A-Cath was made. Port was grasped dissected out of its cavity. Vicryl suture was placed around the site of catheter entry into the vessel and was ligated. Wound was irrigated subcutaneous tissue was closed with Vicryl and skin was closed with running nylon suture. We then turned our attention to the left side for port placement. The neck anatomy was quite difficult given her severe cachexia. She has no subcutaneous fat visualization with the ultrasound of the left neck structures was challenging. The internal jugular was accessed with the finder needle but I could not pass the guidewire successfully. One attempt of a left subclavian was made and this was unsuccessful. I was concerned about further subclavian attempts because of the risk of pneumothorax and in this patient with advanced right lung cancer we decided to abort further attempts. She emerged from anesthesia was transferred to recovery in stable condition with a plan for PICC placement. Complications: none Post-operative Condition: stable Disposition: same day surgery
--- NOTE | 2022-12-16 11:52 | DI.RAD.S_ITS ---
PROCEDURE: XR CHEST FOR PICC 1V INDICATIONS: line placement COMPARISON: [facility], [place], XR CHEST 1V, 11/23/2021, 10:20. [facility], [place], XR CHEST 1V, 08/05/2021, 14:14. FINDINGS: PICC was placed by the intravenous therapy team from the left side. Fluoroscopic spot film demonstrates the tip of PICC projecting to the area of mid SVC. IMPRESSION: Tip of PICC projects to the area of mid SVC. Dictated by: Juan F Goddard M.D. on 12/16/2022 at 12:07 Approved by: Juan F Goddard M.D. on 12/16/2022 at 12:07
--- NOTE | 2022-12-16 11:57 | SUR.PHASEI ---
PIC line placed by Maggi Eugene in PACU. Dr Lance updated patient at bedside.
== END 2022-12-16 13:30 | disposition home or self-care (01) ==
PROVIDERS: PCP Nurse Practitioner; Referring Provider Surgery; Visit Provider Surgery
PROC: (CPT 36561; principal; 2022-12-16 09:30)
DX: C34.91 Malignant neoplasm of unspecified part of right bronchus or lung (principal); Z45.2 Encounter for adjustment and management of vascular access device; T82.514A Breakdown (mechanical) of infusion catheter, initial encounter
CPT/HCPCS: 36561; 36590; 82962; J1644; J2704; J3010

== ENCOUNTER 2023-02-03 17:53 | Emergency (ER) | payer MEDICARE, OTHER, SELFPAY ==
[2022-10-22 11:14] VITALS: BMI 21.8
[2023-02-03 18:02] VITALS: BP 138/68; PULSE 85; RESP 18; TEMP 36.6; O2SAT 96; BMI 15.5
--- NOTE | 2023-02-03 19:52 | ED.WOUNDLAC ---
HPI - Wound/Laceration General Chief Complaint: Wound/Laceration Stated Complaint: right forearm skin tear Time Seen by Provider: 02/03/23 19:44 Source: patient Mode of arrival: Ambulatory Limitations: no limitations History of Present Illness HPI narrative: 82-year-old female history of right lung squamous cell carcinoma, prior surgery, iron deficiency anemia, non-Hodgkin's lymphoma, aortic stenosis with bovine valve replacement in 2010, hypothyroidism, dyslipidemia, chronic pain who presents with complaint of skin tear to the right forearm. Patient states her personal and down her shoulder and caused a skin tear on her right forearm. This happened yesterday. She had a dressing on it from the neighbor but it became tattered and her family noted and were not sure how to address at next. Patient states she does not think her tetanus is up-to-date. Patient denies any redness, warmth or increasing pain. She denies any other symptoms or concerns today. Related Data Home Medications Medication Instructions Recorded Confirmed cyclosporine 0.05 % eye drops in a 1 drop EYE-BOTH BID 05/04/18 12/31/22 dropperette (Restasis) aspirin 81 mg tablet,delayed 81 mg PO DAILY 01/20/19 12/31/22 release cholecalciferol (vitamin D3) 25 25 mcg PO DAILY 12/11/22 12/31/22 mcg (1,000 unit) capsule docusate sodium 100 mg capsule 100 mg PO BID 12/11/22 12/31/22 (Colace) gabapentin 800 mg tablet 800 mg PO TID 12/11/22 12/31/22 levothyroxine 88 mcg tablet 88 mcg PO DAILY 12/14/22 12/31/22 Previous Rx's Medication Instructions Recorded Disabled Parking Placard #1 ea 05/04/18 amitriptyline 50 mg tablet 50 mg PO BEDTIME #90 tabs 10/26/22 Allergies Allergy/AdvReac Type Severity Reaction Status Date / Time Iodinated Contrast Media Allergy Severe ANAPHYLAXIS Verified 12/31/22 14:13 [IODINATED CONTRAST MEDIA - IV DYE] ampicillin [AMPICILLIN] AdvReac Severe BLOODY Verified 12/31/22 14:13 DIARRHEA oxycodone [OXYCODONE] AdvReac Intermediate MAKES ME Verified 12/31/22 14:13 MEAN, CHANGE OF PERSONALITY adhesive [ADHESIVE] AdvReac Mild REDNESS Verified 12/31/22 14:13 Review of Systems Review of Systems ROS Unobtainable: All systems reviewed & are unremarkable except as noted in HPI and below Patient History Medical History On home oxygen therapy Weight loss of more than 10% body weight Vision impairment Cachexia Depression Anaphylactic reaction (07/31/08) Diverticulosis Neuropathy Difficulty swallowing Arthritis Emphysema lung Heart murmur Chest pain Malignant neoplasm of lung Nocturnal hypoxia Constipation 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) Osteoporosis (~2015) Aortic stenosis Mitral valve disorder Pulmonary embolism Coronary artery disease Peripheral neuropathy GERD (gastroesophageal reflux disease) Dermatitis Non Hodgkin's lymphoma Acute CVA (cerebrovascular accident) (2018) Retinal artery occlusion Macular degeneration Hypothyroidism Hyperlipidemia Hypertension History of aortic valve replacement with bioprosthetic valve (10/23/10) Raynaud's disease (05/17/12) Current smoker (05/17/12) Chronic obstructive pulmonary disease 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) Osteoarthritis (07/23/10) Surgical History History of surgery Hx of fusion of cervical spine (02/2006) History of removal of Port-a-Cath (07/04/17) H/O total hysterectomy History of cholecystectomy History of appendectomy History of lung surgery (1994) Hx of fusion of cervical spine (~03/2004) History of lumpectomy of left breast Hx of hysterectomy (~04/1987) Hx of aortic valve replacement (06/22/13) History of cataract removal with insertion of prosthetic lens (2008) Status post cholecystectomy (08/22/09) Family History Mother Cancer Colon cancer Heart disease Father Lung cancer Brother Lung cancer Sister CVA (cerebral vascular accident) Heart disease Daughter Myocardial infarction Social History marital status: unknown household members: none Smoking Status: Current every day smoker Tobacco: How many years used: 50 second hand exposure: Yes alcohol intake: current substance use type: does not use Smoking Status: Current every day smoker alcohol intake frequency: a few times a week Substance Use Type: does not use Exam Narrative Exam Narrative: GENERAL: Alert and oriented x three, thin elderly female in mild distress. HEENT: Head normocephalic, atraumatic, EOMI, pupils reactive, face symmetric, moist mucous membranes NECK: Supple, full range of motion CARDIOVASCULAR: Regular rate and rhythm without murmurs, rubs or gallops. RESPIRATORY: Breath sounds equal bilaterally, no wheezes rales or rhonchi. ABDOMEN: Soft, nontender. Normoactive bowel sounds all 4 quadrants. No guarding or rebound, rigidity, no mass EXTREMITIES: Normal range of motion. Neurovascularly intact NEUROLOGICAL: Cranial nerves II through XII grossly intact. Moving all extremities SKIN: Warm, dry, no petechiae, no rashes, patient has a irregular 3 cm skin tear on her right forearm which is partially covered and partially uncovered with the avulsed skin. Clean dry and intact without any erythema, no drainage, no foul odor. 2+ pulses with normal range of motion. Initial Vital Signs Initial Vital Signs: Vital Signs Temperature 98 F 02/03/23 18:02 Pulse Rate 85 02/03/23 18:02 Respiratory Rate 18 02/03/23 18:02 Blood Pressure 138/68 02/03/23 18:02 Pulse Oximetry 96 02/03/23 18:02 Oxygen Delivery Method Room Air 02/03/23 18:02 Course Orders Ordered: ED Orders 02/03/23 20:31 Consult to [employer] REPORTS DEVELOPER - Voice Network Engineer Stat Discontinued Medications Diphtheria/Tetanus/Acell Pertussis (Tet,Diph,Pertuss(Acell),Vac/Pf 0.5 Ml Syringe) 0.5 ml IM .ONCE ONE Stop: 02/03/23 20:01 Last Admin: 02/03/23 20:23 Dose: 0.5 ml Documented By: MICHAEL Vital Signs Vital signs: Vital Signs - 8 hr 02/03/23 20:14 Pulse Rate 82 Respiratory Rate 18 Blood Pressure 105/62 Pulse Oximetry 97 Oxygen Delivery Method Room Air MDM - Wound/Laceration MDM Narrative Medical decision making narrative: Well-appearing female with small to medium size skin tear on her right forearm. Patient and family and I discussed some basic wound care, they can use topical triple antibiotic ointment as needed nonstick dressings close monitoring suspect this should heal in the next 2 weeks. Patient's tetanus is up not updated she desires it to be so. Discussed return precautions signs and symptoms to watch for. Discharge Plan Departure Patient Disposition: Home Clinical Impression: Skin tear of forearm without complication Activity Restrictions/Additional Instructions: Follow-up in the next week if you are not starting to have improvements or signs of healing. Wound Care: Keep wound(s) clean and dry. Wash daily with soap and water only. Pat dry. Cover with a nonstick bandage. Do not use over the counter products (alcohol or peroxide)on the wounds unless instructed by a physician. You may use a triple antibiotic ointment with dressing changes. If wound condition worsens (increased/expanding redness, developing fluid blisters, or worsening pain), either contact your doctor for an urgent re-assessment , or return to the Emergency Department. Return to the Emergency Department for any new or worsening symptoms. Return if fever greater than 100.4 Fahrenheit, increased swelling, increasing pain or worsening symptoms such as increased discharge or spreading redness. Prescriptions: No Action Restasis 0.05 % dropperette 1 drop EYE-BOTH BID (DME) Disabled Parking Placard Qty: 1 0RF Dose Instruction: As directed Rx Instructions: Patient qualifies for Disabled Parking Placard amitriptyline 50 mg tablet 50 mg PO BEDTIME Qty: 90 3RF Rx Instructions: Take 1 tab at bedtime daily for sleep. gabapentin 800 mg tablet 800 mg PO TID docusate sodium [Colace] 100 mg capsule 100 mg PO BID cholecalciferol (vitamin D3) 25 mcg (1,000 unit) capsule 25 mcg PO DAILY aspirin 81 mg Tablet,Delayed Release (Dr/Ec) 81 mg PO DAILY levothyroxine 88 mcg tablet 88 mcg PO DAILY Referrals: Arabella Patel ARNP [Primary Care Provider] - Stand Alone Forms: Patient Portal/API
[2023-02-03 20:14] VITALS: BP 105/62; PULSE 82; RESP 18; O2SAT 97
[2023-02-03] MEDS: TET,DIPH,PERTUSS(ACELL),VAC/PF 0.5 ML SYRINGE IM (20:23)
--- NOTE | 2023-02-04 15:04 | CM.SWNOTE ---
Addendum entered by aPmela Salter 02/04/23 15:24: Candace at [facility] called back and stated that patient's referral has been accepted to PT and RN services. MORRO Escobar Original Note: ED DESTINATION SIGN REPAIRER f/u consult note DESTINATION SIGN REPAIRER receives follow up consult regarding patient who presented to ED on 02/03/23 due to concern for wound and laceration. RN reports that patient is requesting HH services for ADLs. DESTINATION SIGN REPAIRER reviews EMR and Baldo, patient has hx of [facility]. DESTINATION SIGN REPAIRER calls patient, patient endorses request for [facility] for career development coordinator and PT. Patient endorses she walks with FWW but would benefit from PT due to weakness, patient endorses independence with showering and toileting. DESTINATION SIGN REPAIRER calls [facility] and faxes F2F, order and clinicals for referral for PT and RN. ED provider Dr. Hummel signs F2F for Dr. Mitchell as she is not present in ED. Candace with [facility] calls back and states they accept patient's insurance but administration needs to approve wound care prior to acceptance. DESTINATION SIGN REPAIRER to f/u with [facility] regarding new referral. MORRO Escobar
== END 2023-02-03 20:35 | disposition home or self-care (01) ==
PROVIDERS: Emergency Provider Emergency Medicine; PCP Nurse Practitioner
DX: S51.811A Laceration without foreign body of right forearm, initial encounter (principal); W45.8XXA Other foreign body or object entering through skin, initial encounter; Z23 Encounter for immunization
CPT/HCPCS: 90471; 99283; 90715

== ENCOUNTER 2023-03-18 22:46 | Inpatient (IN) | payer MEDICARE, OTHER, SELFPAY ==
[2023-02-05 10:52] VITALS: BMI 21.8
[2023-03-18 22:45] VITALS: BP 117/62; PULSE 72; RESP 28; TEMP 36; O2SAT 91; BMI 15.6
[2023-03-18 22:49] VITALS: BP 117/62
[2023-03-18 22:50] VITALS: PULSE 76; O2SAT 92
--- NOTE | 2023-03-18 22:51 | DI.RAD.S_ITS ---
PROCEDURE: XR HIP W PEL IF DONE RT 2V INDICATIONS: Fall with hip pain with rotation and shortening TECHNIQUE: 2 views of the hip were acquired. COMPARISON: [facility], [place], [id number] W PEL IF PERFORMED, 10/30/2015, 13:41. FINDINGS: Bones: No fractures or dislocations. No suspicious bony lesions. The visualized pelvic ring appears intact. Mild asymmetric hip joint degeneration. Soft tissues: No suspicious soft tissue calcifications or masses. IMPRESSION: No acute bony abnormality. Mild symmetric hip joint degeneration. Dictated by: Anya Warren M.D. on 03/18/2023 at 23:31 Approved by: Anya Warren M.D. on 03/18/2023 at 23:32
[2023-03-18 23:00] VITALS: PULSE 73; O2SAT 91
--- NOTE | 2023-03-18 23:03 | ED_ITS ---
HPI - General Adult General Chief complaint: Fall Stated complaint: GLF, syncope Time Seen by Provider: 03/18/23 22:52 Source: patient Mode of arrival: EMS Limitations: no limitations History of Present Illness HPI narrative: Patient is an 82-year-old female. Has a current history of lung cancer. His seen by oncology. Is receiving immunotherapy for palliative purposes. Is on oxygen at home at baseline. Also apparently has active non-Hodgkin's lymphoma. Had a fall at home today. Patient states she is unsure as to why she fell. She stated that she did hurt her right hip. She did not hit her head. No loss of consciousness. She has not on blood thinners. Has not been ambulatory since the fall. It was a friend who found her and contacted EMS. Patient's only real complaint is pain to her right hip. Patient is a DNR/DNI with a focus on comfort. Related Data Home Medications Medication Instructions Recorded Confirmed cyclosporine 0.05 % eye drops in a 1 drop EYE-BOTH BID 05/04/18 03/16/23 dropperette (Restasis) aspirin 81 mg tablet,delayed 81 mg PO DAILY 01/20/19 03/16/23 release cholecalciferol (vitamin D3) 25 25 mcg PO DAILY 12/11/22 03/16/23 mcg (1,000 unit) capsule docusate sodium 100 mg capsule 100 mg PO BID 12/11/22 03/16/23 (Colace) gabapentin 800 mg tablet 800 mg PO TID 12/11/22 03/16/23 levothyroxine 88 mcg tablet 88 mcg PO DAILY 12/14/22 03/16/23 Previous Rx's Medication Instructions Recorded Disabled Parking Placard #1 ea 05/04/18 amitriptyline 50 mg tablet 50 mg PO BEDTIME #90 tabs 10/26/22 Rollator 4 wheel walker #1 ea 02/09/[address] #1 ea 03/16/23 Allergies Allergy/AdvReac Type Severity Reaction Status Date / Time Iodinated Contrast Media Allergy Severe ANAPHYLAXIS Verified 03/16/23 11:10 [IODINATED CONTRAST MEDIA - IV DYE] ampicillin [AMPICILLIN] AdvReac Severe BLOODY Verified 03/16/23 11:10 DIARRHEA oxycodone [OXYCODONE] AdvReac Intermediate MAKES ME Verified 03/16/23 11:10 MEAN, CHANGE OF PERSONALITY adhesive [ADHESIVE] AdvReac Mild REDNESS Verified 03/16/23 11:10 Review of Systems Constitutional Constitutional: Reports system reviewed and no additional complaints, except as documented Cardiovascular Cardiovascular: Reports system reviewed and no additional complaints, except as documented Respiratory Respiratory: Reports system reviewed and no additional complaints, except as documented Musculoskeletal Musculoskeletal: Reports system reviewed and no additional complaints, except as documented Integumentary/Breasts Skin/Breast: Reports system reviewed and no additional complaints, except as documented Hematologic/Lymphatic On Anticoagulants: No Patient History Medical History On home oxygen therapy Weight loss of more than 10% body weight Vision impairment Cachexia Depression Anaphylactic reaction (07/31/08) Diverticulosis Neuropathy Difficulty swallowing Arthritis Emphysema lung Heart murmur Chest pain Malignant neoplasm of lung Nocturnal hypoxia Constipation 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) Osteoporosis (~2015) Aortic stenosis Mitral valve disorder Pulmonary embolism Coronary artery disease Peripheral neuropathy GERD (gastroesophageal reflux disease) Dermatitis Non Hodgkin's lymphoma Acute CVA (cerebrovascular accident) (2017) Retinal artery occlusion Macular degeneration Hypothyroidism Hyperlipidemia Hypertension History of aortic valve replacement with bioprosthetic valve (10/23/10) Raynaud's disease (05/17/12) Current smoker (05/17/12) Chronic obstructive pulmonary disease 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) Osteoarthritis (07/23/10) Surgical History History of surgery Hx of fusion of cervical spine (02/2006) History of removal of Port-a-Cath (07/04/17) H/O total hysterectomy History of cholecystectomy History of appendectomy History of lung surgery (1994) Hx of fusion of cervical spine (~03/2004) History of lumpectomy of left breast Hx of hysterectomy (~04/1987) Hx of aortic valve replacement (06/22/13) History of cataract removal with insertion of prosthetic lens (2008) Status post cholecystectomy (08/22/09) Family History Mother Cancer Colon cancer Heart disease Father Lung cancer Brother Lung cancer Sister CVA (cerebral vascular accident) Heart disease Daughter Myocardial infarction Social History marital status: unknown household members: none Smoking Status: Current every day smoker Tobacco: How many years used: 50 second hand exposure: Yes alcohol intake: current substance use type: does not use Smoking Status: Current every day smoker alcohol intake frequency: a few times a week Substance Use Type: does not use Exam Initial Vital Signs Initial Vital Signs: Vital Signs Temperature 96.8 F L 03/18/23 22:45 Pulse Rate 72 03/18/23 22:45 Respiratory Rate 28 H 03/18/23 22:45 Blood Pressure 117/62 03/18/23 22:45 Pulse Oximetry 91 03/18/23 22:45 Oxygen Delivery Method Room Air 03/18/23 22:45 HENMT Head: normal to inspection and normocephalic Resp Effort & Inspection: normal respiratory effort Auscultation: clear to auscultation bilaterally Cardio Rate: regular rate Rhythm: regular rhythm GI Inspection: normal to inspection and non-distended Palpation: soft Neuro General: patient alert, patient awake and patient oriented x3 Extrem Other: Discomfort with palpation of the right hemipelvis and any movement of the right leg. No tenderness to palpation of the right knee. Right ankle is unremarkable. Scores GCS Lisa coma scale eye opening: Spontaneous Lisa coma scale verbal response: Orientated [place] coma scale motor response: Obey commands [place] coma scale total score: 15 Course Orders Ordered: ED Orders 03/18/23 22:51 XR hip w pel if done RT 2V Stat 03/18/23 23:39 CT pelvis wo con Stat 03/19/23 01:35 Basic Metabolic Panel Stat Complete Blood Count AUTO DIFF Stat 03/19/23 01:50 Consult to Orthopedic Surgery Stat Sodium Chloride (Normal Saline 0.9%) 1,000 mls @ 50 mls/hr IV CONT CHRISTINE Last Admin: 03/19/23 02:25 Dose: 50 mls/hr Documented By: BB Discontinued Medications Morphine Sulfate (Morphine 2 Mg/Ml Inj) 2 mg IV NOW ONE Stop: 03/18/23 23:45 Last Admin: 03/18/23 23:53 Dose: 2 mg Documented By: RIVER Morphine Sulfate (Morphine 2 Mg/Ml Inj) 2 mg IV NOW ONE Stop: 03/19/23 01:17 Last Admin: 03/19/23 01:38 Dose: 2 mg Documented By: RIVER(2) Vital Signs Vital signs: Vital Signs - 8 hr 03/18/23 22:45 03/18/23 22:49 03/18/23 22:50 Temperature 96.8 F L Pulse Rate 72 76 Respiratory Rate 28 H Blood Pressure 117/62 117/62 Pulse Oximetry 91 92 Oxygen Delivery Method Room Air Nasal Cannula Oxygen Flow Rate 3 03/18/23 23:00 03/18/23 23:31 03/18/23 23:42 Temperature Pulse Rate 73 77 Respiratory Rate Blood Pressure 93/54 L Pulse Oximetry 91 93 Oxygen Delivery Method Nasal Cannula Nasal Cannula Oxygen Flow Rate 3 3 03/18/23 23:42 03/19/23 00:01 03/19/23 00:30 Temperature Pulse Rate 69 76 74 Respiratory Rate Blood Pressure Pulse Oximetry 95 90 L 96 Oxygen Delivery Method Nasal Cannula Nasal Cannula Nasal Cannula Oxygen Flow Rate 3 3 3 03/19/23 01:00 03/19/23 01:20 03/19/23 01:20 Temperature Pulse Rate 68 72 Respiratory Rate Blood Pressure 102/63 Pulse Oximetry 97 96 Oxygen Delivery Method Nasal Cannula Nasal Cannula Oxygen Flow Rate 3 3 03/19/23 01:30 03/19/23 01:30 03/19/23 02:00 Temperature Pulse Rate 73 75 Respiratory Rate Blood Pressure 112/69 Pulse Oximetry 97 98 Oxygen Delivery Method Nasal Cannula Nasal Cannula Oxygen Flow Rate 3 3 03/19/23 02:00 Temperature Pulse Rate Respiratory Rate Blood Pressure 111/60 Pulse Oximetry Oxygen Delivery Method Oxygen Flow Rate Medical Decision Making Medical Records Medical records reviewed: Yes I reviewed the patient's medical records. Lab Data 03/19/23 01:35 03/19/23 01:35 Labs: Lab Results 03/19/23 Range/Units 01:35 WBC 11.6 H (4.5-11.0) X10^3/uL RBC 4.51 (4.0-5.2) X10^6/uL Hgb 12.8 (12.0-16.0) g/dL Hct 38.6 (36-46) % MCV 85.6 (80-100) fL MCH 28.4 (26-34) PG MCHC 33.2 (30-36) % RDW 14.5 (11.6-14.8) % Plt Count 262 (150-400) X10^3/uL Neut % (Auto) 88.6 H (50-75) % Lymph % (Auto) 7.3 L (25-40) % [place] % (Auto) 3.7 (3-14) % Eos % (Auto) 0.2 L (2-4) % Baso % (Auto) 0.2 (0-2) % Neut # (Auto) 61908 H (4941-9487) /uL Lymph # (Auto) 900 L (1240-6573) /uL [place] # (Auto) 400 (0-900) /uL Eos # (Auto) 0 (0-450) /uL Baso # (Auto) 0 (0-100) /uL Sodium 133 L (137-145) mmol/L Potassium 3.1 L (3.4-5.1) mmol/L Chloride 87 L (98-107) mmol/L Carbon Dioxide 40 H* (22-32) mmol/L BUN 20 H (7-17) mg/dL Creatinine 0.48 L (0.52-1.04) mg/dL Estimated GFR > 60 (>60) mL/min BUN/Creatinine Ratio 41.7 H (6-22) Glucose 98 (80-110) mg/dL Calcium 12.0 H (8.4-10.2) mg/dL Imaging Data CT pelvis: Radiologist's Impression: PROCEDURE: CT PEL WO CON INDICATIONS: concern for R hip fracture TECHNIQUE: Noncontrast 3 mm axial sections acquired through the bony pelvis, with coronal and sagittal reformatting. COMPARISON: None. FINDINGS: Image quality: Excellent. Bones: There is a nondisplaced intertrochanteric fracture of the right femur. Femoroacetabular joint space is intact. Pelvic ring is intact. Soft tissues: No significant joint effusion. Aorto bi iliac atherosclerotic calcifications. IMPRESSION: Nondisplaced intertrochanteric right femoral fracture. Femoroacetabular joint is intact. Extremity x-ray #1: Radiologist's Impression: PROCEDURE: XR HIP W PEL IF DONE RT 2V INDICATIONS: Fall with hip pain with rotation and shortening TECHNIQUE: 2 views of the hip were acquired. COMPARISON: [facility], CR, [id number] W PEL IF PERFORMED, 10/30/2015, 13:41. FINDINGS: Bones: No fractures or dislocations. No suspicious bony lesions. The visualized pelvic ring appears intact. Mild asymmetric hip joint degeneration. Soft tissues: No suspicious soft tissue calcifications or masses. IMPRESSION: No acute bony abnormality. Mild symmetric hip joint degeneration. Dictated by: Anya Warren M.D. on 03/18/2023 at 23:31 Approved by: Anya Warren M.D. on 03/18/2023 at 23:32 MDM Narrative Medical decision making narrative: Initial x-ray of the hip did not show any acute pathology however I have high concern that there is a fracture. CT scan confirmed the intertrochanteric fracture. I discuss this with the patient. She has a DNR/DNI with an emphasis on comfort however informed patient that if she had any hope of walking again that surgery would be recommended. Prior to this event the patient was ambulatory. She states she does use the wall in her home to help support her but she is able to walk around. She does live by herself but has friends and neighbors check on her often. Patient states she would like to pursue surgery because she would like to be able to walk again. I discuss the case with Dr. Monterroso on-call for Orthopedic surgery who recommends maintaining NPO status. Discuss the case with Dr. Miles hospitalist on-call. We will admit for further evaluation and treatment. Discharge Plan Departure Patient Disposition: Admitted As Inpatient Clinical Impression: Closed intertrochanteric fracture of right hip
[2023-03-18 23:31] VITALS: PULSE 77; O2SAT 93
--- NOTE | 2023-03-18 23:39 | DI.CT.S_ITS ---
PROCEDURE: CT PEL WO CON INDICATIONS: concern for R hip fracture TECHNIQUE: Noncontrast 3 mm axial sections acquired through the bony pelvis, with coronal and sagittal reformatting. COMPARISON: None. FINDINGS: Image quality: Excellent. Bones: There is a nondisplaced intertrochanteric fracture of the right femur. Femoroacetabular joint space is intact. Pelvic ring is intact. Soft tissues: No significant joint effusion. Aorto bi iliac atherosclerotic calcifications. IMPRESSION: Nondisplaced intertrochanteric right femoral fracture. Femoroacetabular joint is intact. Approved by: Anya Warren M.D. on 03/19/2023 at 1:35
[2023-03-18 23:42] VITALS: BP 93/54; PULSE 69; O2SAT 95
[2023-03-18] MEDS: MORPHINE 2 MG/ML INJ IV (23:53)
[2023-03-19] VITALS (26 sets, daily range): BP systolic 70–143; BP diastolic 37–72; PULSE 59–87; RESP 16–22; TEMP 35.9–37.4; O2SAT 85–98; BMI 15.6
--- NOTE | 2023-03-19 | DI.RAD.S_ITS ---
PROCEDURE: XR HIP W PEL IF DONE RT 2V INDICATIONS: IM NAILING TECHNIQUE: 6 operative views of the hip were acquired. COMPARISON: [facility], CR, XR HIP W PEL IF DONE RT 2V, 03/18/2023, 23:04. FINDINGS: Operative imaging utilized for ORIF of a trochanteric hip fracture. IMPRESSION: Operative imaging utilized during ORIF of a trochanteric hip fracture. No radiographic evidence of complications. Dictated by: Geoff Almaguer M.D. on 03/19/2023 at 10:23 Approved by: Geoff Almaguer M.D. on 03/19/2023 at 10:24
[2023-03-19] MEDS: MORPHINE 2 MG/ML INJ IV (01:38)
[2023-03-19 02:02] LABS: Add Manual Diff / Slide Review NO; Basophils Absolute Auto 0 /uL (0-100); Basophils Percent Auto 0.2 % (0-2); Eosinophils Absolute Auto 0 /uL (0-450); Eosinophils Percent Auto 0.2 % (2-4); Hematocrit 38.6 % (36-46); Hemoglobin 12.8 g/dL (12.0-16.0); Lymphocytes Absolute Auto 900 /uL (1100-4500); Lymphocytes Percent Auto 7.3 % (25-40); Mean Corpuscular HGB Conc 33.2 % (30-36); Mean Corpuscular Hemoglobin 28.4 PG (26-34); Mean Corpuscular Volume 85.6 fL (80-100); Monocytes Absolute Auto 400 /uL (0-900); Monocytes Percent Auto 3.7 % (3-14); Neutrophils Absolute Auto 10300 /uL (1500-7000); Neutrophils Percent Auto 88.6 % (50-75); Platelet Count 262 X10^3/uL (150-400); Red Blood Cell Count 4.51 X10^6/uL (4.0-5.2); Red Cell Distribution Width 14.5 % (11.6-14.8); White Blood Cell Count 11.6 X10^3/uL (4.5-11.0)
[2023-03-19 02:09] LABS: BUN Creatinine Ratio 41.7 (6-22); Blood Urea Nitrogen 20 mg/dL (7-17); Chloride 87 mmol/L (98-107); Estimated Glomerular Filt Rate > 60 mL/min (>60); Glucose 98 mg/dL (80-110); HEMOLYSIS < 15 (0-50); Potassium 3.1 mmol/L (3.4-5.1); Sodium 133 mmol/L (137-145)
[2023-03-19 02:18] LABS: Carbon Dioxide 40 mmol/L (22-32)
[2023-03-19] MEDS: SODIUM CHLORIDE 0.9% 1,000 ML 50 ML IV ×2 (02:25→10:09)
--- NOTE | 2023-03-19 02:57 | P.CONS_ITS ---
History of Present Illness Consult details Date Patient Seen: 03/19/23 Time Patient Seen: 07:34 Chief complaint: GLF, syncope Reason for consult: right hip intertrochanteric fracture Requesting provider: Jose Roberto Hummel Narrative: Patient is an 82-year-old female. Has a current history of lung cancer. Squamous cell.She is seen by oncology (Dr. Bhat)and is receiving immunotherapy for palliative purposes. Is on oxygen at home at baseline 2-4L. Has COPD and emphysema. 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 Had a fall at home 03/18/23. Per primary care note and oncology note has decline over recent months. She has cachexia. and a hospice referral was placed. Life expectancy weeks to months. however has been living independently at home. Patient states she is unsure as to why she fell. She stated that she did hurt her right hip. She did not hit her head. No loss of consciousness. She has not on blood thinners. Has not been ambulatory since the fall. It was a friend who found her and contacted EMS. Patient's only real complaint is pain to her right hip. Patient is a DNR/DNI with a focus on comfort. Wants a have a chance to walk again/ live independently. hx of aortic valve replacement. hx - iron def anemia- and did not tolerate oral iron- but has IV infusions. she is not on blood thinners right eye blindness History of a right ankle fracture about year ago that I also fixed. After that surgery she did have wound breakdown prior irrigation debridement but went onto heal. Meds Home Medications and Allergies Home Medications Medication Instructions Recorded Confirmed Type Disabled Parking Placard #1 ea 05/04/18 03/16/23 Rx cyclosporine 0.05 % eye drops in a 1 drop EYE-BOTH BID 05/04/18 03/19/23 History dropperette (Restasis) aspirin 81 mg tablet,delayed 81 mg PO DAILY 01/20/19 03/19/23 History release amitriptyline 50 mg tablet 50 mg PO BEDTIME #90 tabs 10/26/22 03/19/23 Rx cholecalciferol (vitamin D3) 25 25 mcg PO DAILY 12/11/22 03/19/23 History mcg (1,000 unit) capsule docusate sodium 100 mg capsule 100 mg PO BID 12/11/22 03/16/23 History (Colace) gabapentin 800 mg tablet 800 mg PO TID 12/11/22 03/16/23 History levothyroxine 88 mcg tablet 88 mcg PO DAILY 12/14/22 03/19/23 History Rollator 4 wheel walker #1 ea 02/09/23 03/16/23 Rx [address]abled [address] permit #1 ea 03/16/23 Rx Allergies Allergy/AdvReac Type Severity Reaction Status Date / Time Iodinated Contrast Media Allergy Severe ANAPHYLAXIS Verified 03/16/23 11:10 [IODINATED CONTRAST MEDIA - IV DYE] ampicillin [AMPICILLIN] AdvReac Severe BLOODY Verified 03/16/23 11:10 DIARRHEA oxycodone [OXYCODONE] AdvReac Intermediate MAKES ME Verified 03/16/23 11:10 MEAN, CHANGE OF PERSONALITY adhesive [ADHESIVE] AdvReac Mild REDNESS Verified 03/16/23 11:10 Review of Systems Review of Systems Narrative: baseline o2 requirement at night, right eye blindness. loss of appetite, + weight loss. Exam Vital Signs (past 8 hours): - 03/18/23 22:45 03/18/23 22:49 03/18/23 22:50 Temperature 96.8 F L Pulse Rate 72 76 Respiratory Rate 28 H Blood Pressure 117/62 117/62 Pulse Oximetry 91 92 Oxygen Delivery Method Room Air Nasal Cannula Oxygen Flow Rate 3 03/18/23 23:00 03/18/23 23:31 03/18/23 23:42 Temperature Pulse Rate 73 77 Respiratory Rate Blood Pressure 93/54 L Pulse Oximetry 91 93 Oxygen Delivery Method Nasal Cannula Nasal Cannula Oxygen Flow Rate 3 3 03/18/23 23:42 03/19/23 00:01 03/19/23 00:30 Temperature Pulse Rate 69 76 74 Respiratory Rate Blood Pressure Pulse Oximetry 95 90 L 96 Oxygen Delivery Method Nasal Cannula Nasal Cannula Nasal Cannula Oxygen Flow Rate 3 3 3 03/19/23 01:00 03/19/23 01:20 03/19/23 01:20 Temperature Pulse Rate 68 72 Respiratory Rate Blood Pressure 102/63 Pulse Oximetry 97 96 Oxygen Delivery Method Nasal Cannula Nasal Cannula Oxygen Flow Rate 3 3 03/19/23 01:30 03/19/23 01:30 03/19/23 02:00 Temperature Pulse Rate 73 75 Respiratory Rate Blood Pressure 112/69 Pulse Oximetry 97 98 Oxygen Delivery Method Nasal Cannula Nasal Cannula Oxygen Flow Rate 3 3 03/19/23 02:00 Temperature Pulse Rate Respiratory Rate Blood Pressure 111/60 Pulse Oximetry Oxygen Delivery Method Oxygen Flow Rate Oxygen Delivery Method Nasal Cannula Oxygen Flow Rate 3 Narrative Exam Narrative: gen: Alert oriented no acute distress lying in HEENT: Normocephalic atraumatic auscultation lungs clear bilaterally RESP: On 3 L nasal cannula CV: Regular rate and rhythm MSK: Externally rotated right lower extremity pain around the right hip. Wiggles toes slightly. Healed ankle incisions. Limited motion secondary to pain. No significant shortening but there is external rotation consistent with nondisplaced intertrochanteric hip fracture Demonstrates dorsiflexion plantar flexion of left ankle Right arm has a skin tear otherwise moving bilateral upper extremities without limitation Objective Imaging pelvis and lateral r hip xr: My impression: nondisplaced right intertrochanteric fracture Radiologist's impression: radiologist did not read a fracture. CT scan - pelvis: My impression: nondisplaced right intertroch fracture Radiologist's impression: nondisplaced right intertrochanteric fracture Labs 03/19/23 01:35 03/19/23 01:35 Labs: Laboratory Results - last 24 hr 03/19/23 01:35 WBC 11.6 H RBC 4.51 Hgb 12.8 Hct 38.6 MCV 85.6 MCH 28.4 MCHC 33.2 RDW 14.5 Plt Count 262 Neut % (Auto) 88.6 H Lymph % (Auto) 7.3 L [place] % (Auto) 3.7 Eos % (Auto) 0.2 L Baso % (Auto) 0.2 Neut # (Auto) 19988 H Lymph # (Auto) 900 L [place] # (Auto) 400 Eos # (Auto) 0 Baso # (Auto) 0 Sodium 133 L Potassium 3.1 L Chloride 87 L Carbon Dioxide 40 H* BUN 20 H Creatinine 0.48 L Estimated GFR > 60 BUN/Creatinine Ratio 41.7 H Glucose 98 Calcium 12.0 H PFSH Medical History On home oxygen therapy Weight loss of more than 10% body weight Vision impairment Cachexia Depression Anaphylactic reaction (07/31/08) Diverticulosis Neuropathy Difficulty swallowing Arthritis Emphysema lung Heart murmur Chest pain Malignant neoplasm of lung Nocturnal hypoxia Constipation 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) Osteoporosis (~2015) Aortic stenosis Mitral valve disorder Pulmonary embolism Coronary artery disease Peripheral neuropathy GERD (gastroesophageal reflux disease) Dermatitis Non Hodgkin's lymphoma Acute CVA (cerebrovascular accident) (2018) Retinal artery occlusion Macular degeneration Hypothyroidism Hyperlipidemia Hypertension History of aortic valve replacement with bioprosthetic valve (10/23/10) Raynaud's disease (05/17/12) Current smoker (05/17/12) Chronic obstructive pulmonary disease 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) Osteoarthritis (07/23/10) Surgical History History of surgery Hx of fusion of cervical spine (02/2006) History of removal of Port-a-Cath (07/04/17) H/O total hysterectomy History of cholecystectomy History of appendectomy History of lung surgery (1994) Hx of fusion of cervical spine (~03/2004) History of lumpectomy of left breast Hx of hysterectomy (~04/1987) Hx of aortic valve replacement (06/22/13) History of cataract removal with insertion of prosthetic lens (2008) Status post cholecystectomy (08/22/09) Family History Mother Cancer Colon cancer Heart disease Father Lung cancer Brother Lung cancer Sister CVA (cerebral vascular accident) Heart disease Daughter Myocardial infarction Social History marital status: unknown household members: none Tobacco & Substance Use Smoking Status: Current every day smoker Tobacco: How many years used: 50 second hand exposure: Yes alcohol intake: current substance use type: does not use Assessment & Plan Assessment and plan (1) Closed intertrochanteric fracture of right hip: Qualifiers: Encounter type: initial encounter Fracture alignment: nondisplaced Qualified Code(s): S72.144A - Nondisplaced intertrochanteric fracture of right femur, initial encounter for closed fracture Status: Acute (2) Cachexia: Status: Acute Plan right intertrochanteric hip fracture-- the standard treatment for a hip fracture of this type is stabilization with surgery to facilitate early mobility, immediate weightbearing and to reduce the morbidity and mortality of prolonged bed rest. Patients with hip fractures treated nonoperatively would in most cases not be expected to walk again. Additionally surgical stabilization is favored to improve comfort and easily of mobility for rolling in bed and turning/hygiene. Therefore unless life expectancy is extremely short, the standard recommendation is surgical stabilization. No surgery is without risk and there are significant risks associated with hip fractures in elderly patients and patients with multiple medical comorbidities. This patients cachexia, cancer, lung function (02 requirement) and cardiac history increase her perioperative risks of complications. However, without surgery, her expectation behzad be just bedrest/bed ridden. After surgical stabilization the postoperative plan would be weightbearing as tolerated with assistive devices. however the expectation would be she would need at least initial care with fdc disharge or constant inhome care. I have thoroughly discussed the risks and benefits with the patient. The patient states that she makes her own medical decisions and would like to proceed with surgery to give herself a chance to walk, stand and move independently. I will work on surgical timing. The patient is not on any blood thinners. Possible candidate for spinal/regional anesthesia NPO MD Appreciate Internal Medicine management of this patients medical comorbidites High complexity, decision for surgery, inpatient admission and stay 2+ midnights expected The risks and benefits of the procedure have been discussed with the patient and given the opportunity to ask questions. The risks of surgery include but are not limited to infection, malunion, nonunion, persistence of pain, damage to nerves and blood vessels, posttraumatic arthritis, DVT, PE, coardiopulmonary complications and . The patient expressed a thorough understanding of the risks and benefits of surgery and has elected to proceed. Consent was signed. Additionally the patient's daughter was spoken with on the telephone and agrees with the for surgical fixation. Postoperatively recommend prophylactic Lovenox for DVT prophylaxis x4 weeks due to the patient's hip fracture and active cancer. Time Spent With Patient Time with patient: 50 to 69 minutes with 50% spent counseling/coordinating care
--- NOTE | 2023-03-19 03:28 | P.HP_ITS ---
History of Present Illness History of Present Illness Chief complaint: GLF, syncope Narrative: 82 y/o with PMH of lung carcinoma on palliative Tx and 2 L of oxygen at home, sustained GLF and Rt intertrochanteric femoral fracture. She is ambulatory and lives independently at baseline. Complains on hip pain. Not sure why she fell. 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) Osteoporosis (~2015) Aortic stenosis Mitral valve disorder Pulmonary embolism Coronary artery disease Peripheral neuropathy GERD (gastroesophageal reflux disease) Dermatitis Non Hodgkin's lymphoma Acute CVA (cerebrovascular accident) (2017) Retinal artery occlusion Macular degeneration Hypothyroidism Hyperlipidemia Hypertension History of aortic valve replacement with bioprosthetic valve (10/23/10) Raynaud's disease (05/17/12) Current smoker (05/17/12) Chronic obstructive pulmonary disease 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) Osteoarthritis (07/23/10) Surgical History History of surgery Hx of fusion of cervical spine (02/2006) History of removal of Port-a-Cath (07/04/17) H/O total hysterectomy History of cholecystectomy History of appendectomy History of lung surgery (1994) Hx of fusion of cervical spine (~03/2004) History of lumpectomy of left breast Hx of hysterectomy (~04/1987) Hx of aortic valve replacement (06/22/13) History of cataract removal with insertion of prosthetic lens (2008) Status post cholecystectomy (08/22/09) Family History Mother Cancer Colon cancer Heart disease Father Lung cancer Brother Lung cancer Sister CVA (cerebral vascular accident) Heart disease Daughter Myocardial infarction Social History marital status: unknown household members: none Smoking Status: Current every day smoker Tobacco: How many years used: 50 second hand exposure: Yes alcohol intake: current substance use type: does not use Meds Home Medications and Allergies Home Medications Medication Instructions Recorded Confirmed Type Disabled Parking Placard #1 ea 05/04/18 03/16/23 Rx cyclosporine 0.05 % eye drops in a 1 drop EYE-BOTH BID 05/04/18 03/19/23 History dropperette (Restasis) aspirin 81 mg tablet,delayed 81 mg PO DAILY 01/20/19 03/19/23 History release amitriptyline 50 mg tablet 50 mg PO BEDTIME #90 tabs 10/26/22 03/19/23 Rx cholecalciferol (vitamin D3) 25 25 mcg PO DAILY 12/11/22 03/19/23 History mcg (1,000 unit) capsule docusate sodium 100 mg capsule 100 mg PO BID 12/11/22 03/16/23 History (Colace) gabapentin 800 mg tablet 800 mg PO TID 12/11/22 03/16/23 History levothyroxine 88 mcg tablet 88 mcg PO DAILY 12/14/22 03/19/23 History Rollator 4 wheel walker #1 ea 02/09/23 03/16/[address] permit #1 ea 03/16/23 Rx Allergies Allergy/AdvReac Type Severity Reaction Status Date / Time Iodinated Contrast Media Allergy Severe ANAPHYLAXIS Verified 03/16/23 11:10 [IODINATED CONTRAST MEDIA - IV DYE] ampicillin [AMPICILLIN] AdvReac Severe BLOODY Verified 03/16/23 11:10 DIARRHEA oxycodone [OXYCODONE] AdvReac Intermediate MAKES ME Verified 03/16/23 11:10 MEAN, CHANGE OF PERSONALITY adhesive [ADHESIVE] AdvReac Mild REDNESS Verified 03/16/23 11:10 Review of Systems Constitutional Comments: w/o fever or chills Cardiovascular Comments: w/o chest pain or palpitations Respiratory Comments: chronic shortness of breath, w/o hemoptysis Gastrointestinal Comments: w/o pain Genitourinary Comments: w/o dysuria Musculoskeletal Comments: Rt thigh pain Exam Vital Signs (past 8 hours): - 03/18/23 22:45 03/18/23 22:49 03/18/23 22:50 Temperature 96.8 F L Pulse Rate 72 76 Respiratory Rate 28 H Blood Pressure 117/62 117/62 Pulse Oximetry 91 92 Oxygen Delivery Method Room Air Nasal Cannula Oxygen Flow Rate 3 03/18/23 23:00 03/18/23 23:31 03/18/23 23:42 Temperature Pulse Rate 73 77 Respiratory Rate Blood Pressure 93/54 L Pulse Oximetry 91 93 Oxygen Delivery Method Nasal Cannula Nasal Cannula Oxygen Flow Rate 3 3 03/18/23 23:42 03/19/23 00:01 03/19/23 00:30 Temperature Pulse Rate 69 76 74 Respiratory Rate Blood Pressure Pulse Oximetry 95 90 L 96 Oxygen Delivery Method Nasal Cannula Nasal Cannula Nasal Cannula Oxygen Flow Rate 3 3 3 03/19/23 01:00 03/19/23 01:20 03/19/23 01:20 Temperature Pulse Rate 68 72 Respiratory Rate Blood Pressure 102/63 Pulse Oximetry 97 96 Oxygen Delivery Method Nasal Cannula Nasal Cannula Oxygen Flow Rate 3 3 03/19/23 01:30 03/19/23 01:30 03/19/23 02:00 Temperature Pulse Rate 73 75 Respiratory Rate Blood Pressure 112/69 Pulse Oximetry 97 98 Oxygen Delivery Method Nasal Cannula Nasal Cannula Oxygen Flow Rate 3 3 03/19/23 02:00 03/19/23 02:30 03/19/23 02:30 Temperature Pulse Rate 77 Respiratory Rate Blood Pressure 111/60 110/60 Pulse Oximetry 93 Oxygen Delivery Method Nasal Cannula Oxygen Flow Rate 3 03/19/23 03:00 03/19/23 03:00 Temperature Pulse Rate 79 Respiratory Rate 18 Blood Pressure 121/61 Pulse Oximetry 92 Oxygen Delivery Method Nasal Cannula Oxygen Flow Rate 3 Oxygen Delivery Method Nasal Cannula Oxygen Flow Rate 3 Narrative Exam Narrative: In no distress, laying in bed HENMT Other: O2 via NC Eyes Other: reactive pupils, eomi Resp Other: normal respiratory effort at rest Cardio Other: RRR Neuro Other: w/o focal deficits Psych Other: decisional, lucid Objective Labs 03/19/23 01:35 03/19/23 01:35 Labs: Laboratory Results - last 24 hr 03/19/23 01:35 WBC 11.6 H RBC 4.51 Hgb 12.8 Hct 38.6 MCV 85.6 MCH 28.4 MCHC 33.2 RDW 14.5 Plt Count 262 Neut % (Auto) 88.6 H Lymph % (Auto) 7.3 L [place] % (Auto) 3.7 Eos % (Auto) 0.2 L Baso % (Auto) 0.2 Neut # (Auto) 77745 H Lymph # (Auto) 900 L [place] # (Auto) 400 Eos # (Auto) 0 Baso # (Auto) 0 Sodium 133 L Potassium 3.1 L Chloride 87 L Carbon Dioxide 40 H* BUN 20 H Creatinine 0.48 L Estimated GFR > 60 BUN/Creatinine Ratio 41.7 H Glucose 98 Calcium 12.0 H Assessment & Plan Assessment and plan (1) Closed intertrochanteric fracture of right hip: Status: Acute Plan: Admitted for surgical repair Orthopedic rural health consultant will try to operate today - NPO, IVFs, pain management (2) 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
[2023-03-19] MEDS: MORPHINE 4 MG/ML INJ 2 MG IV (05:27)
[2023-03-19] MEDS: ALBUTEROL/IPRATROPIUM 3 ML AMPUL INH (07:53)
[2023-03-19] MEDS: LACTATED RINGERS 1,000 ML 42 ML IV (07:57)
--- NOTE | 2023-03-19 07:58 | P.OP_ITS ---
Operative Date/Time/Diagnoses Date of procedure: 03/19/23 Time of procedure: 09:00 Pre-op diagnosis: Right intertrochanteric hip fracture Osteoporotic hip fracture Post-op diagnosis: same Procedure & Clinicians Procedure: Fixation hip fracture with intramedullary nydia, right CPT code 37926 Same procedure as scheduled: Yes Indications: The patient is an 82-year-old female that sustained a nondisplaced right intertrochanteric hip fracture with a ground level fall. She has a history of cachexia and cancer. History of aortic valve replacement. Has a history of a right trimalleolar ankle fracture status post ORIF in 2021. Patient has been indicated for operative treatment of her hip fracture to allow weight-bearing and early mobilization and help reduce the risks of prolonged immobility. The risks benefits and alternatives procedure were discussed at length with the patient and her daughter expressed understanding. These include bleeding, infection, damage to nerve, pain, malunion nonunion, blood clots, pulmonary embolism cardiovascular risks associated with general anesthesia including myocardial infarction, stroke, paralysis, . Consent was signed. Surgeon: Марина Verdugo Click Yes if Unassisted: Yes Anesthesia Type: General and Local Operative Notes Findings: Nondisplaced, minimally displaced intertrochanteric right hip fracture. Closure Type: primary Specimen(s): none sent Prosthetic devices, grafts, tissues, transplants, or devices: Hammond and nephew InterTAN nail 11.5 mm by 18 cm, short nail With interlocking compression and lag screw 90 and 85 mm Distal static locking screw 5 mm x 32.5 mm Estimated Blood Loss (mL): 10 Blood products transfused: none Tourniquet time (min): 0 Procedure in detail: Hip fracture intramedullary nailing cpt 44483 Preoperative diagnosis: Right Intertrochanteric fracture of the femur, closed Postoperative diagnose: Right Intertrochanteric fracture of the femur, closed Procedure cephalomedullary nail intertrochanteric hip fracture the CPT code 77888 Side: Right Implant Hammond [employer] Nephew 11.5mm x 18 cm cephalomedullary nail intertan Procedure: The patient was seen and the site of surgery was marked in the preoperative area. This was the right hip. Patient was brought to the operating room and placed on the operative table and general anesthesia was administered. The patient was positioned on the fracture table in standard fashion with a well-padded boots and a padded peroneal post. An SCD was on the contralateral leg. A formal time-out was called to confirm the patient's side and site of surgery administration of preoperative antibiotics. And presence of informed consent. Implants were in the room and accounted for. All were in agreement. The patient had 1 dose of 1 g of TXA as a prevention for excessive blood loss. Patient had 2 g of Ancef as a preoperative antibiotic. The operative leg was then gently manipulated under fluoroscopic guidance to obtain a closed reduction in near anatomic alignment. At this point the operative extremity was prepped and draped in the standard sterile manner. The starting point was marked out using fluoroscopic guidance and marked on the skin. A guidewire was placed percutaneously and the starting point was obtained. Incision was made over the guidewire. An opening drill was inserted to the level of the lesser trochanter. The opening Reamer and guidewire were then removed. An 18 cm cephalomedullary nail was selected. The 11.5 mm x 18 cm nail was then slid into the canal. The nail was advanced to the proper depth and r otation. The guide for the cephalomedullary screw was then inserted into the external handle. An incision was made and the guide was placed down to the bone. A guidewire was placed to the proper depth into the femoral head and this was confirmed on AP and lateral imaging. The tip apex distance was evaluated and appropriate. This was measured. Next the outer cortex was drilled for the interlocking screw and the anti rotation bar was placed. The cephalomedullary screw length was then measured off the drill again. A 90 mm lag screw was selected and the corresponding interlocking compression screw. A guidewire was then over drilled and the lag screw placed. The anti rotation bar was removed and then the locking compression screws were placed and confirmed on biplanar fluoroscopy. The integrated compression screw was tightened. Attention was turned to the distal interlock. This was placed with the guide in the standard technique. AP and lateral images were captured in the or confirming alignment hardware placement. Wounds were irrigated and closed in layers with 2-0 Vicryl in the deep fascia. 2- 0 in the subcutaneous tissue and soila in the skin. 30 cc 0.25% Marcaine with epinephrine was injected into the incision sites for local anesthetic. Sterile dressings were applied. There no immediate complications. Surgical counts were correct. The patient tolerated the procedure well was taken to recovery room. Complications: none Post-operative Condition: stable Disposition: PACU Plan for aftercare: Postoperative plan. Weightbear as tolerated to the surgical extremity. Work with physical therapy and occupational therapy. Discharge by primary team. Likely prison. Monitor hemoglobin and hematocrit postoperatively may require transfusion if needed. Encourage incentive spirometry. SCDs and Loven ox for DVT prophylaxis. Recommend Lovenox 4 weeks for hip fracture and patient with history of cancer. If the Patient and family elect to avoid subcutaneous injection or stronger anticoagulant then aspirin 81 mg b.i.d. can be used as an alternative if there are excessive bleeding concerns. Follow-up [facility] in 2 weeks for wound check and repeat x-rays. Keep Aquacel dressing in place. May shower. May change dressing if saturated.
--- NOTE | 2023-03-19 08:02 | SUR.HOLD ---
This nurse witnessed consent for surgery with Dr Verdugo; patient is awake, alert and oriented x 3; patient able to make decisions. Patient to PACU with PACU nurse via bed; patient oxygen dependent due to COPD and lung cancer. Duoneb started in pre-op due to expiratory and expiratory wheezing and extensive rhonci; productive cough noted with thick, white sputum. Patient does not appear to be in any respiratory distress. Patient has existing skin tear to right upper forearm with slight bleeding noted. On arrival to Pre-op area, aleven dressing applied to skin tear.
[2023-03-19] MEDS: CEFAZOLIN 2 GM/100 ML PREMIX 100 ML IV ×2 (08:42→17:44)
[2023-03-19] MEDS: TRANEXAMIC ACID 1,000 MG in SODIUM CHLORIDE 0.9% 100 ML 200 MG IV (09:04)
[2023-03-19] MEDS: BUPIVACAINE 0.25% (PF) 30 ML, EPINEPHrine 0.15 MG INJ (09:06)
[2023-03-19] MEDS: POTASSIUM CHLORIDE 20 MEQ TAB 40 MEQ PO (12:20)
[2023-03-19] MEDS: SODIUM CHLORIDE 0.9% 500 ML IV (12:30)
--- NOTE | 2023-03-19 13:08 | PM.HP.1 ---
History of Present Illness History of Present Illness Chief complaint: GLF, syncope Narrative: 82 y/o with PMH of lung carcinoma on palliative Tx and 2 L of oxygen at home, sustained GLF and Rt intertrochanteric femoral fracture. She is ambulatory and lives independently at baseline. Complains on hip pain. Not sure why she fell. 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) Osteoporosis (~2015) Aortic stenosis Mitral valve disorder Pulmonary embolism Coronary artery disease Peripheral neuropathy GERD (gastroesophageal reflux disease) Dermatitis Non Hodgkin's lymphoma Acute CVA (cerebrovascular accident) (2017) Retinal artery occlusion Macular degeneration Hypothyroidism Hyperlipidemia Hypertension History of aortic valve replacement with bioprosthetic valve (10/23/10) Raynaud's disease (05/17/12) Current smoker (05/17/12) Chronic obstructive pulmonary disease 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) Osteoarthritis (07/23/10) Surgical History History of surgery Hx of fusion of cervical spine (02/2006) History of removal of Port-a-Cath (07/04/17) H/O total hysterectomy History of cholecystectomy History of appendectomy History of lung surgery (1994) Hx of fusion of cervical spine (~03/2004) History of lumpectomy of left breast Hx of hysterectomy (~04/1987) Hx of aortic valve replacement (06/22/13) History of cataract removal with insertion of prosthetic lens (2008) Status post cholecystectomy (08/22/09) Family History Mother Cancer Colon cancer Heart disease Father Lung cancer Brother Lung cancer Sister CVA (cerebral vascular accident) Heart disease Daughter Myocardial infarction Social History marital status: unknown household members: none Smoking Status: Current every day smoker Tobacco: How many years used: 50 second hand exposure: Yes alcohol intake: current substance use type: does not use Meds Home Medications and Allergies Home Medications Medication Instructions Recorded Confirmed Type Disabled Parking Placard #1 ea 05/04/18 03/19/23 Rx cyclosporine 0.05 % eye drops in a 1 drop EYE-BOTH BID 05/04/18 03/19/23 History dropperette (Restasis) aspirin 81 mg tablet,delayed 81 mg PO DAILY 01/20/19 03/19/23 History release amitriptyline 50 mg tablet 50 mg PO BEDTIME #90 tabs 10/26/22 03/19/23 Rx cholecalciferol (vitamin D3) 25 25 mcg PO DAILY 12/11/22 03/19/23 History mcg (1,000 unit) capsule docusate sodium 100 mg capsule 100 mg PO BID 12/11/22 03/19/23 History (Colace) gabapentin 800 mg tablet 800 mg PO TID 12/11/22 03/19/23 History levothyroxine 88 mcg tablet 88 mcg PO DAILY 12/14/22 03/19/23 History Rollator 4 wheel walker #1 ea 02/09/23 03/19/23 Rx Disabled [address] permit #1 ea 03/16/23 03/19/23 Rx Allergies Allergy/AdvReac Type Severity Reaction Status Date / Time Iodinated Contrast Media Allergy Severe ANAPHYLAXIS Verified 03/16/23 11:10 [IODINATED CONTRAST MEDIA - IV DYE] ampicillin [AMPICILLIN] AdvReac Severe BLOODY Verified 03/16/23 11:10 DIARRHEA oxycodone [OXYCODONE] AdvReac Intermediate MAKES ME Verified 03/16/23 11:10 MEAN, CHANGE OF PERSONALITY adhesive [ADHESIVE] AdvReac Mild REDNESS Verified 03/16/23 11:10 Review of Systems Constitutional Comments: w/o fever or chills Cardiovascular Comments: w/o chest pain or palpitations Respiratory Comments: chronic shortness of breath, w/o hemoptysis Gastrointestinal Comments: w/o pain Genitourinary Comments: w/o dysuria Musculoskeletal Comments: Rt thigh pain Exam Vital Signs (past 8 hours): - 03/19/23 07:30 03/19/23 09:48 03/19/23 09:53 Temperature 99.4 F 98 F Pulse Rate 77 82 84 Respiratory Rate 21 16 20 Blood Pressure 99/66 143/56 H 117/55 L Pulse Oximetry 85 L 98 90 L Oxygen Delivery Method Nasal Cannula Simple Mask Nasal Cannula Oxygen Flow Rate 2 6 4 03/19/23 09:58 03/19/23 10:03 03/19/23 10:08 Temperature 98.5 F 98.5 F Pulse Rate 82 81 78 Respiratory Rate 20 22 20 Blood Pressure 103/47 L 109/51 L 113/56 L Pulse Oximetry 95 96 94 Oxygen Delivery Method Nasal Cannula Nasal Cannula Nasal Cannula Oxygen Flow Rate 4 3 3 03/19/23 10:29 03/19/23 10:30 03/19/23 10:59 Temperature 96.7 F L Pulse Rate 83 68 Respiratory Rate 16 Blood Pressure 104/49 L 94/42 L Pulse Oximetry 93 94 Oxygen Delivery Method Nasal Cannula Oxygen Flow Rate 4 4 03/19/23 11:20 03/19/23 11:29 03/19/23 12:29 Temperature Pulse Rate 59 L 77 Respiratory Rate Blood Pressure 92/41 L 88/38 L Pulse Oximetry 95 95 96 Oxygen Delivery Method Nasal Cannula Oxygen Flow Rate 4 4 4 Oxygen Delivery Method Nasal Cannula Oxygen Flow Rate 4 Narrative Exam Narrative: In no distress, laying in bed HENMT Other: O2 via NC Eyes Other: reactive pupils, eomi Resp Other: normal respiratory effort at rest Cardio Other: RRR Neuro Other: w/o focal deficits Psych Other: decisional, lucid Objective Labs 03/19/23 01:35 03/19/23 01:35 Labs: Laboratory Results - last 24 hr 03/19/23 01:35 WBC 11.6 H RBC 4.51 Hgb 12.8 Hct 38.6 MCV 85.6 MCH 28.4 MCHC 33.2 RDW 14.5 Plt Count 262 Neut % (Auto) 88.6 H Lymph % (Auto) 7.3 L [place] % (Auto) 3.7 Eos % (Auto) 0.2 L Baso % (Auto) 0.2 Neut # (Auto) 02235 H Lymph # (Auto) 900 L [place] # (Auto) 400 Eos # (Auto) 0 Baso # (Auto) 0 Sodium 133 L Potassium 3.1 L Chloride 87 L Carbon Dioxide 40 H* BUN 20 H Creatinine 0.48 L Estimated GFR > 60 BUN/Creatinine Ratio 41.7 H Glucose 98 Calcium 12.0 H Magnesium 2.0 Assessment & Plan Assessment and plan (1) Closed intertrochanteric fracture of right hip: Qualifiers: Encounter type: initial encounter Fracture alignment: nondisplaced Qualified Code(s): S72.144A - Nondisplaced intertrochanteric fracture of right femur, initial encounter for closed fracture Status: Acute Plan: Admitted for surgical repair Dr. 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 Will likely need SNF.
[2023-03-19] MEDS: SODIUM CHLORIDE 0.9% 500 ML 1000 ML IV (14:05)
--- NOTE | 2023-03-19 15:21 | CM.DANOTE ---
Initial DCP Assessment Visit Note Reviewed EMR and team rounds for pt's medical status and initial anticipated d/c needs. Met with pt and her granddaughter at bedside to introduce self and role. Pt was found alert, somewhat groggy from surgery today. Pt's dtr will plan to visit tomorrow, this CUT PLUG PACKER will plan to meet with her to discuss d/c recommendations and preferences. Payor: Medicare PCP: Arabella Patel Pt is a 82 year-old F with a current hx of metastatic lung cancer, non-Hodgkin's Lymphoma, and cachexia. She is followed by [facility], is currently taking immunotherapy for palliative focus. She presented to the ED on 03/18/23 after she had a ground level fall, landing on her R-hip resulting in a fracture. Her friend found her and called EMS. Pt has no memory of the fall. Pt was taken to the OR today and a open reduction fixation was completed on her R-hip. Pt lives alone, is independent at baseline, has home O2. She does also have a [employer]. Dtr Kenyetta Chappell, who is her primary contact and coordinates health care needs. CUT PLUG PACKER will plan to meet with her/pt tomorrow to discuss potential d/c preferences, pending PT/OT eval and recommendations. DCP to follow and assist as pt's care plan evolves. Discharge Planning/Care Management CM Discharge Assessment Start: 03/19/23 15:15 Freq: Status: Active Protocol: Document 03/19/23 15:16 DPL (Rec: 03/19/23 15:21 DPL [id number]) Discharge Planning Assessment Assigned Liner Assembler AMY Burrows Advance Directives? Yes: Advance Directive Advance Directives on File No History Provided By Patient,Family Member,Medical Record Expected Length of Stay 3 Has Patient been admitted in last 30 No days? Prior Living Arrangements House Household Members none Comment Pt lives alone. Type of transporation used prior to Drives own vehicle admit Independent with ADL's Yes Is patient alert and oriented? Yes Caregiver for Another No Comment OP Oncology at . DME Already Rented / Owned Oxygen Comment Pt is on O2 at home at baseline. Patient/Family Preference Shelter Facility,Home with Home Health Comment Pending PT/OT eval and recommendations. Barriers to Discharge No Discharge Plan Shelter Facility Transportation Arrangement Likely d/c to SNF rehab, facility would transport. Additional Comment Pending. If patient plan is home with home health No: There are some presigned : Has signed face to face form been face to face forms. completed? If patient plan is SNF: Has PASSR been No completed? Has Agency SNF been contacted No Comment Pending therapies and recommendations. Pt just had surgery today. Whiteboard Updated in Patient Room with Yes name and ext. # of Liner Assembler Review Status In Process Please Provide Date Initial DC 03/19/23 Assessment Was Performed
--- NOTE | 2023-03-19 15:40 | PT.IIE ---
Current Diagnoses Malignant neoplasm of upper lobe, right bronchus or lung (03/19/23) Non-Hodgkin lymphoma, unspecified, unspecified site (03/19/23) Age-related osteoporosis with current pathological fracture, unspecified femur, initial encounter for fracture (03/19/23) Cachexia (03/19/23) Fracture of unspecified part of neck of right femur, initial encounter for closed fracture (03/19/23) Displaced intertrochanteric fracture of right femur, initial encounter for closed fracture (03/19/23) Nondisplaced intertrochanteric fracture of right femur, initial encounter for closed fracture (03/19/23) Surgery Performed Operation Date: 03/19/23 09:30 Actual Procedures p Intramedullary Nailing Femur(Right) - Марина Verdugo MD Surgical History (Last Reviewed 03/16/23 @ 13:42 by EDDIE Cheema) H/O total hysterectomy History of appendectomy History of cataract removal with insertion of prosthetic lens (2008) History of cholecystectomy History of lumpectomy of left breast History of lung surgery (1994) History of removal of Port-a-Cath (07/04/17) History of surgery Hx of aortic valve replacement (06/22/13) Hx of fusion of cervical spine (~03/2004) Hx of fusion of cervical spine (02/2006) Hx of hysterectomy (~04/1987) Status post cholecystectomy (08/22/09) Medical History (Last Reviewed 03/19/23 @ 01:55 by Jose Roberto Hummel DO) Acute CVA (cerebrovascular accident) (2017) Anaphylactic reaction (07/31/08) Aortic stenosis Arthritis Cachexia Chest pain Chronic obstructive pulmonary disease Constipation Coronary artery disease Current smoker (05/17/12) Depression Dermatitis Difficulty swallowing Diverticulosis 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) GERD (gastroesophageal reflux disease) Heart murmur History of aortic valve replacement with bioprosthetic valve (10/23/10) Hyperlipidemia Hypertension Hypothyroidism Macular degeneration Malignant neoplasm of lung Mitral valve disorder Neuropathy Nocturnal hypoxia Non Hodgkin's lymphoma On home oxygen therapy Osteoarthritis (07/23/10) Osteoporosis (~2015) Peripheral neuropathy Pulmonary embolism Raynaud's disease (05/17/12) 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) Vision impairment Weight loss of more than 10% body weight Physical Therapy Inpatient Evaluation/Re-Eval M1 PT/OT-IP Prior Functional Status Start: 03/19/23 16:55 Freq: NEEDED Status: Active Protocol: Document 03/19/23 15:40 AB (Rec: 03/19/23 17:12 AB [id number]) Medical Review Prior Functional Status Medical History Reviewed Yes Communication able to make needs known Mobility and Gait pt stated that she was modified independent with all mobilities at home but tends to furniture cruise when ambulating inside her house and uses a 4WW for outdoor mobility Social History Household Members none Living Arrangements House Number of Floors (Floors) Two Floors Number of Stairs To Enter/Railing? pt can stay on main level of the house no steps to enter Home Environment Standard Height Toilet Home Equipment Hand Held Shower,Grab Bars Near Toilet,Grab Bars In Shower Additional Social History Comment pt has an adjustable bed pt has a walk in tub shower M2 PT-IP Current Condition Start: 03/19/23 16:55 Freq: NEEDED Status: Active Protocol: Document 03/19/23 15:40 AB (Rec: 03/19/23 17:12 AB [email or web address]) Physical Therapy Current Condition Current Condition Evaluation Date 03/19/23 Treatment Diagnosis GLF; s/p R hip ORIF; difficulty in walking Onset Date 03/19/23 M3 PT-IP Subjective Start: 03/19/23 16:55 Freq: NEEDED Status: Active Protocol: Document 03/19/23 15:40 AB (Rec: 03/19/23 17:12 AB [email or web address]) Subjective Physical Therapy Visit Type Type Initial Evaluation Visit Start Time 15:40 Visit Stop Time 16:20 Total Visit Minutes 40 Notes per EMR: pt has lymphoma and is on comfort measures but pt wants to be able to walk again Number of [employer] Visits 0 Physical Therapy Visit Comments Patient Comments pt is agreeable to do PT Therapy Pain Assessment Pain When Pain Assessed At Rest Pain Present Pain Present Pain Reported Location Right Hip Intensity 4 Scale Used Numeric (0 - 10) Pain Behaviors Guarding,Holding Area,Wincing Pain Management Techniques Distraction,Modification of Treatment,Re-positioning, Timing of Activity with Medications M4 PT-IP Mobility and Gait Start: 03/19/23 16:55 Freq: NEEDED Status: Active Protocol: Document 03/19/23 15:40 AB (Rec: 03/19/23 17:12 AB [id number]) PT-Bed Mobility Assessment Rolling Type of Rolling Log Rolling Level of Assist Maximal Assistance,2 Person Assistance Supine to Sit Supine to Sit Maximum Assistance,1 Person Assistance,2 Person Assistance ,Head of Bed Elevated,Bedrails Sit to Supine Sit to Supine Maximum Assistance,Total Assistance,2 Person Assistance Scooting Scooting Up and Down in Bed Dependent PT-Transfer Assessment Comments Mobility Comments pt supine in bed. Grand daughter in room. BP in supine: 87/39 with small cuff. O2 sat with 3L/min O2 : 92- 96% (with difficulty getting O2 sat reading). Checked BP again after a few minutes with a pediatric cuff: 87/49. pt completed supine to sit max A x 1-2 and max cues. pt required max A for sitting balance on EOB. max A for scooting to EOB. BP checked: 83/42. pt tolerated ~ 1-2 minutes of sitting with c/o lightheadedness. assisted pt back to supine: max A x 2 to total A x 2 and max cues. positioned pt in bed total A x 2 and max cues. call light and table placed within reach. informed pt and grand daughter regarding PT goals and plans due to pt was on comfort measures prior to admission. pt's grand daughter stated that pt's daughter knows more about pt's medical needs and will be here tomorrow. will f /u with pt and daughter tomorrow. Gait Assessment Comments Gait Comments unable at this time. 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 Impaired Gross Range of Motion Lower Extremity ROM Assessment Within Functional Limits Strength Lower Extremity Strength Assessment Bilaterally Impaired Comments Strength Comments LLE: 3+/5 RLE: 3-/5 Muscle Tone Muscle Tone WNL Yes M6 PT-IP Treatment Start: 03/19/23 16:55 Freq: NEEDED Status: Active Protocol: Document 03/19/23 15:40 AB (Rec: 03/19/23 17:12 AB [id number]) Physical Therapy Treatment Education Education Provided Precautions,Weight Bearing Status,Post-Op Packet,Safety M7 PT-IP Assessment and Plan Start: 03/19/23 16:55 Freq: NEEDED Status: Active Protocol: Document 03/19/23 15:40 AB (Rec: 03/19/23 17:12 AB [id number]) PT Summary Assessment and Plan Potential Rehabilitation Potential Fair Status of Condition at Evaluation Unstable Summary Impairments Pain,ROM,Strength,Balance, Coordination,Sensation,Tone, Cognition,Bed Mobility, Transfers,Gait,Activity Tolerance Assessment Summary pt is an 82 y/o F who had a GLF and sustained a R hip intertrochanteric fx. pt underwent R hip IM rodding and is WBAT. pt requiring max A x 2 to total A x 2 mobility and is unable to ambulate at this time. pt with low BP but stable in supine and sitting. pt also has lymphoma and is receiving immunotherapy contributing to pt's medical condition affecting mobility and function. pt will require 24/7 assist and may require SNF rehab but also depending on pt's wishes if she wants to continue to be on comfort measures or hospice care. will continue to assess. Goals Bed Mobility Goal Minimal Assistance Transfer Goal Minimal Assistance,Front Wheeled Walker Gait Goal Minimal Assistance,Front Wheel Walker Gait Distance 25 Other Goals improve bed mobility, transfers and ambulation using FWW ~ 100 ft SBA Days to Meet Goals 10 Frequency of Treatment Frequency Of Treatment Twice a Day Treatment Plan Physical Therapy Treatment Plan Bed Mobility Training,Transfer Training,Gait Training, Therapeutic Exercise,Balance Retraining,Post Op Education, Discharge Planning,Hot or Cold Pack,Neuromuscular Re-ed, Coordination Retraining,Manual Therapy Weight Bearing Status Weight Bearing Status Weight Bear as Tolerated Allowed Weight Bearing Amount (enter % RLE WBAT or #) (%) Recommendations To Nursing Amount of Assist Needed Mechanical Lift Discharge Recommendations PT Discharge Recommendations SNF Rehab Transportation Needs at Discharge Stretcher/Ambulance
--- NOTE | 2023-03-19 15:40 | OT.IP.EVAL ---
Current Diagnoses Malignant neoplasm of upper lobe, right bronchus or lung (03/19/23) Non-Hodgkin lymphoma, unspecified, unspecified site (03/19/23) Age-related osteoporosis with current pathological fracture, unspecified femur, initial encounter for fracture (03/19/23) Cachexia (03/19/23) Fracture of unspecified part of neck of right femur, initial encounter for closed fracture (03/19/23) Displaced intertrochanteric fracture of right femur, initial encounter for closed fracture (03/19/23) Nondisplaced intertrochanteric fracture of right femur, initial encounter for closed fracture (03/19/23) Surgery Performed Operation Date: 03/19/23 09:30 Actual Procedures p Intramedullary Nailing Femur(Right) - Марина Verdugo MD Past Medical History (Last Reviewed 03/19/23 @ 01:55 by Jose Roberto Hummel DO) Acute CVA (cerebrovascular accident) (2017) Anaphylactic reaction (07/31/08) Aortic stenosis Arthritis Cachexia Chest pain Chronic obstructive pulmonary disease Constipation Coronary artery disease Current smoker (05/17/12) Depression Dermatitis Difficulty swallowing Diverticulosis 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) GERD (gastroesophageal reflux disease) Heart murmur History of aortic valve replacement with bioprosthetic valve (10/23/10) Hyperlipidemia Hypertension Hypothyroidism Macular degeneration Malignant neoplasm of lung Mitral valve disorder Neuropathy Nocturnal hypoxia Non Hodgkin's lymphoma On home oxygen therapy Osteoarthritis (07/23/10) Osteoporosis (~2015) Peripheral neuropathy Pulmonary embolism Raynaud's disease (05/17/12) 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) Vision impairment Weight loss of more than 10% body weight Surgical History (Last Reviewed 03/16/23 @ 13:42 by EDDIE Cheema) H/O total hysterectomy History of appendectomy History of cataract removal with insertion of prosthetic lens (2008) History of cholecystectomy History of lumpectomy of left breast History of lung surgery (1994) History of removal of Port-a-Cath (07/04/17) History of surgery Hx of aortic valve replacement (06/22/13) Hx of fusion of cervical spine (~03/2004) Hx of fusion of cervical spine (02/2006) Hx of hysterectomy (~04/1987) Status post cholecystectomy (08/22/09) Occupational Therapy Inpatient Evaluation/Re-Eval M1 PT/OT-IP Prior Functional Status Start: 03/19/23 16:55 Freq: NEEDED Status: Active Protocol: Document 03/19/23 15:40 [facility] (Rec: 03/19/23 17:14 [facility] [id number]) Medical Review Social History Household Members none Living Arrangements House Number of Floors (Floors) Two Floors Number of Stairs To Enter/Railing? NO steps to enter Home Environment Standard Height Toilet Home Equipment Front Wheel Walker,Four Wheel Walker,Straight Cane,Manual Wheelchair,Hand Held Shower, Grab Bars Near Toilet,Grab Bars In Shower Additional Social History Comment Pt states has a walk in tub, adjustable bed, and Life Alert. M2 OT-IP Current Condition Start: 03/19/23 16:50 Freq: Status: Active Protocol: Document 03/19/23 15:40 [facility] (Rec: 03/19/23 17:12 [facility] [id number]) Occupational Therapy Current Condition Current Condition Evaluation Date 03/19/23 Treatment Diagnosis S/P Right HIp ORIF Diagnosis Onset Date 03/19/23 Weight Bearing Status Weight Bearing Status Weight Bear as Tolerated M3 OT- IP Subjective and Pain Start: 03/19/23 16:50 Freq: Status: Active Protocol: Document 03/19/23 15:40 [facility] (Rec: 03/19/23 17:12 [facility] [id number]) OT- Subjective Occupational Therapy Visit Type Type Initial Evaluation Visit Start Time 15:40 Visit Stop Time 16:20 Total Visit Minutes 40 Occupational Therapy Visit Comments Patient Comments Pt agreed to try to get up. Patient/Caregiver Goals To get better. OT Pain Assessment Pain When Pain Assessed At Rest Pain Present Pain Present Pain Reported Location Right Hip Intensity 4 Scale Used Numeric (0 - 10) M4 OT- IP ADL's Start: 03/19/23 16:50 Freq: Status: Active Protocol: Document 03/19/23 15:40 [facility] (Rec: 03/19/23 17:12 [facility] [id number]) OT [id number] Comments OT Self-Feeding Comments Not at meal time. OT ADL-Grooming Comments OT Grooming Comments Not performed. OT ADL-Oral Care Comments Oral Care Comments Not performed. OT ADL-Dressing General Eval Lower Body Dressing Ability Total Assistance Areas Needing Assistance Socks OT ADL-Toileting General Evaluation Toileting Ability Total Assistance Comments OT Toileting Comments Bueno in place. OT ADL-Bathing Comments OT Bathing Comments Sponge bath more appropriate at this time. M5 OT- IP IADL's Start: 03/19/23 16:50 Freq: Status: Active Protocol: Document 03/19/23 15:40 [facility] (Rec: 03/19/23 17:12 [facility] [id number]) OT-Instrumental Activities of Daily Living Deficits IADL Deficits Identified Deficits Home Safety Awareness Home Safety Comments Pt very tired at this time from having surgery earlier today. Medication Management Medication Management Comments Prior pt did on her own. Money Management Money Management Comments Prior pt managed on her own. Meal Preparation Meal Preparation Comments Pt had Meals on Wheels. Driving Driving Caregiver Provides Assist M6 OT- IP Functional Cognition Start: 03/19/23 16:50 Freq: Status: Active Protocol: Document 03/19/23 15:40 [facility] (Rec: 03/19/23 17:12 [facility] [id number]) Cognitive Factors Limiting Selfcare Function Cognitive Ability Level of Alertness Alert,Drowsy Patient Orientation Name,Place,Situation Attention Span Ability Capable of Focused Attention, Capable of Sustained Attention Ability to Follow Commands Able to Follow One Step Commands Cognitive Comments Cognitive Assessment Comments Pt very tired and drowsy and able to follow directions. Pt is very hard of hearing and states does not use her hearing aids. OT- Vision and Hearing OT- Hearing Assessment OT- Hearing Assessment Hearing Impaired OT- Vision Assessment Visual Acuity Glasses All The Time Visual Attentiveness WFL Occular Pursuits WFL M7 OT- IP Mobility and Balance Start: 03/19/23 16:50 Freq: Status: Active Protocol: Document 03/19/23 15:40 [facility] (Rec: 03/19/23 17:12 [facility] [id number]) OT- Bed Mobility Assessment Supine to Sit Supine to Sit Assist Maximum Assistance,1 Person Assistance,2 Person Assistance Sit to Supine Sit to Supine Assist Maximum Assistance,2 Person Assistance OT-Transfer Assessment Comments Mobility Comments MAX A1-2 to sit to the edge of the bed and MAX AX 2 to help get back to bed. Pt BP 887/39 with HOB up, 82/42 in supine, and 88/49 while seated. Pt initially needing MODA to help sit her at the edge of the bed and then CGA/close SBA before tiring and wanting to lie down. OT- Balance Assessment Sitting Balance and Reactions Static Sitting Balance Ability Poor Dynamic Sitting Balance Ability Poor M8 OT- IP Objective Assessments Start: 03/19/23 16:50 Freq: Status: Active Protocol: Document 03/19/23 15:40 [facility] (Rec: 03/19/23 17:12 [facility] [id number]) OT Gross Range of Motion Upper Extremity Range of Motion ROM Impairments Pt needing her left arm to initially lift her right arm up. OT Strength Upper Extremity Strength Assessment Right Impaired Comments Strength Comments LUE 4-/5, RUE 3-/5 to 4-/5 M9 OT- IP Assessment and Plan Start: 03/19/23 16:50 Freq: Status: Active Protocol: Document 03/19/23 15:40 [facility] (Rec: 03/19/23 17:12 [facility] [id number]) OT Summary Assessment and Plan Potential Rehabilitation Potential Fair Analytic Complexity at Evaluation High Summary OT Impairments Pain,Strength,Balance, Functional Mobility,Self- Feeding,Grooming,Dressing, Toileting,Bathing,Toilet Transfers,Shower Transfers, Activity Tolerance Progress Towards Goals Slow Progress due to Pain,Slow Progress due to Medical Issues,Slow Progress due to Activity Tolerance Assessment Summary Pt high complexity and main barriers are pain, and now needing extensive two person assist just to sit to the edge of the bed at this time. Pt has lung CA on top of just having surgery for her right hip and to be talking to her family of what to do next. Pt is far from her baseline of MOD I with needs at this time and would benefit from skilled rehab if she decides go that route, however may be difficult to progress in a timely manner due to medical complexity and decreased activity tolerance. Pt to be talking to her daughter tomorrow as to what they want to do. Goals Self-Feeding Goal Independent Grooming Goal Independent Dressing Goal Minimal Assistance Toileting Goal Minimal Assistance Bathing Goal Minimal Assistance Toilet Transfer Goal Standby Assistance Shower Transfer Goal Minimal Assistance Days to Meet Goals 20 Frequency of Treatment Frequency Of Treatment Once a Day Treatment Plan OT Treatment Plan ADL Training,Functional Mobility,Patient/Family Education,Discharge Planning Other Treatment Recommendations and Next Transfer to [facility] [place] [place] with MAXA X 2 Treatment Focus with FWW. Discharge Recommendations OT Discharge Recommendations Home with / Assist Available,Home Health,SNF Rehab,Home vs SNF Other Discharge Recommendations OT recommendations to change as pt decides what she would like to do due. Transportation Needs at Discharge Stretcher/Ambulance
[2023-03-19] MEDS: GABAPENTIN 400 MG CAPSULE 800 MG PO ×2 (15:46→21:08)
--- NOTE | 2023-03-19 16:46 | DIET.CONS ---
Dietary Consultation Note Admission Date: 03/19/2023 03:16 Assessment: 82F admitted with GLF and femoral fx. PMH of lung carcinoma on palliative Tx and 2 L of oxygen at home. Granddaughter at bedside during assessment. RD assessment r/t MNA score 10. Reports fairly good appetite. Eats 2-3x per day + snacks. Does not like ensure much or protein powders. Loves ice cream. Open to pb/banana shake. Wt hx indicates 7% weight loss over 1 month (severe). Nutrition focused physical exam indicates severe wasting of temples, orbital, clavicle and boxed shoulders with protruding acromion process. Diet recall: B: toast +/- eggs L: nothing sn: ice cream D; Eggs, mancilla or leftovers sn: ice cream with baileys Ht: 160.02 cm Wt: 40 kg BMI: 15.6 Last BM: 03/18/23 (03/19/23 07:30) MNA: 10 Devin Score: 17 Diet: 03/19/23 Lunch General (Regular) Diet Diet Modifications: Food Texture: Level 7 - Regular Liquid Consistency: Level 0 - Thin Labs: RBC 4.51 X10^6/uL (4.0-5.2) 03/19/23 01:35 Hgb 12.8 g/dL (12.0-16.0) 03/19/23 01:35 Hct 38.6 % (36-46) 03/19/23 01:35 Creatinine 0.48 mg/dL (0.52-1.04) L 03/19/23 01:35 Nutrition Diagnosis: Acute on chronic severe protein calorie malnutrition r/t predicted inadequate po and increased kcal needs with carcinoma aeb physical signs of wasting, severely low BMI of 15.6, and 7% weight loss over one month. Interventions: 1. Discussed trying to incorporate higher kcal options she enjoys 2. Kitchen will send pb/banana shake BID EER: 1600 kcal (40kcal/kg per PCM and cancer dx) 80g PRO (2g/kg per PCM) Monitoring/Evaluations: prn Electronically Signed by: Sydnee De Jesus 03/19/23 16:46 Clinical Dietitian [address] [address]
[2023-03-19] MEDS: ACETAMINOPHEN 325 MG TABLET 650 MG PO (18:21)
[2023-03-19] MEDS: SODIUM CHLORIDE 0.9% 1,000 ML 100 ML IV (20:56)
[2023-03-19] MEDS: AMITRIPTYLINE 25 MG TABLET 50 MG PO (21:07)
[2023-03-19] MEDS: SENNOSIDES 8.6 MG TABLET 17.2 MG PO (21:07)
[2023-03-19] MEDS: DOCUSATE 100 MG CAPSULE PO (21:07)
[2023-03-20] MEDS: CEFAZOLIN 2 GM/100 ML PREMIX 100 ML IV (00:55)
[2023-03-20] MEDS: ACETAMINOPHEN 325 MG TABLET 650 MG PO (02:57)
[2023-03-20 04:00] VITALS: BP 100/49; PULSE 89; RESP 20; TEMP 36.6; O2SAT 91
--- NOTE | 2023-03-20 04:48 | PC.NURSE ---
Dr. Feliciano notified @ 03/19/232019 when I checked her B/P it was 70/38 . MD ordered NS @ 100 cc/hr., B/P this morning was 100/49. Will monitor.
[2023-03-20 05:00] LABS: Hematocrit 34.4 % (36-46); Hemoglobin 11.3 g/dL (12.0-16.0); Mean Corpuscular Hemoglobin 28.7 PG (26-34); Mean Corpuscular Volume 86.9 fL (80-100); Platelet Count 203 X10^3/uL (150-400); Red Blood Cell Count 3.95 X10^6/uL (4.0-5.2); Red Cell Distribution Width 14.6 % (11.6-14.8); White Blood Cell Count 8.8 X10^3/uL (4.5-11.0)
[2023-03-20 05:13] LABS: Blood Urea Nitrogen 20 mg/dL (7-17); Calcium 10.8 mg/dL (8.4-10.2); Carbon Dioxide 34 mmol/L (22-32); Chloride 94 mmol/L (98-107); Estimated Glomerular Filt Rate > 60 mL/min (>60); Glucose 101 mg/dL (80-110); HEMOLYSIS < 15 (0-50); Potassium 3.6 mmol/L (3.4-5.1); Sodium 132 mmol/L (137-145)
[2023-03-20] MEDS: LEVOTHYROXINE 88 MCG TABLET PO (05:51)
[2023-03-20] MEDS: HYDROCODONE/ACET 5/325 TABLET 1 TAB PO (06:35)
[2023-03-20] MEDS: SODIUM CHLORIDE 0.9% 1,000 ML 100 ML IV (07:28)
[2023-03-20] MEDS: SODIUM CHLORIDE 0.9% 500 ML IV (07:50)
[2023-03-20 08:03] VITALS: BP 110/67; PULSE 68; RESP 20; TEMP 36.4; O2SAT 92
[2023-03-20] MEDS: DOCUSATE 100 MG CAPSULE PO (08:53)
[2023-03-20] MEDS: ASPIRIN EC 81 MG TABLET PO (08:53)
[2023-03-20] MEDS: CHOLECALCIFEROL (VITAMIN D3) 1,000 UNIT TABLET 1000 UNIT PO (08:53)
[2023-03-20] MEDS: ENOXAPARIN 30 MG/0.3 ML SYRINGE SUBCUT (08:53)
[2023-03-20] MEDS: polyethylene glycoL 3350 17 GM POWD.PACK PO (08:54)
--- NOTE | 2023-03-20 09:50 | P.PN_ITS ---
Subjective Subjective Date Patient Seen: 03/20/23 Time Patient Seen: 09:50 Interval history: Patient was to be aroused from sleeping. She fell asleep while eating her breakfast. She was unable to answer direct questions. Exam Vital Signs (past 8 hours): - 03/20/23 04:00 03/20/23 08:03 Temperature 97.8 F 97.6 F Pulse Rate 89 68 Respiratory Rate 20 20 Blood Pressure 100/49 L 110/67 Pulse Oximetry 91 92 Oxygen Flow Rate 3 3 Oxygen Delivery Method Nasal Cannula Oxygen Flow Rate 3 Narrative Exam Narrative: Dressing appears to be clean and dry. Able to dorsiflex and plantar flex at the ankle against resistance. No warmth noted on posterior calf or thigh. No complaints of pain with palpation. Const General: frail appearing Objective Labs 03/20/23 04:39 03/20/23 04:39 Labs: Laboratory Results - last 24 hr 03/20/23 04:39 WBC 8.8 RBC 3.95 L Hgb 11.3 L Hct 34.4 L MCV 86.9 MCH 28.7 MCHC 33.0 RDW 14.6 Plt Count 203 Sodium 132 L Potassium 3.6 Chloride 94 L Carbon Dioxide 34 H BUN 20 H Creatinine 0.54 Estimated GFR > 60 BUN/Creatinine Ratio 37.0 H Glucose 101 Calcium 10.8 H [facility] Medical History On home oxygen therapy Weight loss of more than 10% body weight Vision impairment Cachexia Depression Anaphylactic reaction (07/31/08) Diverticulosis Neuropathy Difficulty swallowing Arthritis Emphysema lung Heart murmur Chest pain Malignant neoplasm of lung Nocturnal hypoxia Constipation 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) Osteoporosis (~2015) Aortic stenosis Mitral valve disorder Pulmonary embolism Coronary artery disease Peripheral neuropathy GERD (gastroesophageal reflux disease) Dermatitis Non Hodgkin's lymphoma Acute CVA (cerebrovascular accident) (2018) Retinal artery occlusion Macular degeneration Hypothyroidism Hyperlipidemia Hypertension History of aortic valve replacement with bioprosthetic valve (10/23/10) Raynaud's disease (05/17/12) Current smoker (05/17/12) Chronic obstructive pulmonary disease 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) Osteoarthritis (07/23/10) Surgical History History of surgery Hx of fusion of cervical spine (02/2006) History of removal of Port-a-Cath (07/04/17) H/O total hysterectomy History of cholecystectomy History of appendectomy History of lung surgery (1994) Hx of fusion of cervical spine (~03/2004) History of lumpectomy of left breast Hx of hysterectomy (~04/1987) Hx of aortic valve replacement (06/22/13) History of cataract removal with insertion of prosthetic lens (2008) Status post cholecystectomy (08/22/09) Family History Mother Cancer Colon cancer Heart disease Father Lung cancer Brother Lung cancer Sister CVA (cerebral vascular accident) Heart disease Daughter Myocardial infarction Social History marital status: unknown household members: none Smoking Status: Current every day smoker Tobacco: How many years used: 50 second hand exposure: Yes alcohol intake: current substance use type: does not use Assessment & Plan Post-op Postoperative Procedures: Procedures Operation Date: 03/19/23 09:30 Actual Procedure Side Surgeon p Intramedullary Nailing Femur Right Марина Verdugo MD Postoperative day: 1 Postoperative plan: routine post-op care Postoperative plan narrative: Weightbear as tolerated to the surgical extremity. Work with physical therapy and occupational therapy. Discharge by primary team. Likely half-way. Monitor hemoglobin and hematocrit postoperatively may require transfusion if needed. Encourage incentive spirometry. SCDs and Lovenox for DVT prophylaxis. Recommend Lovenox 4 weeks for hip fracture and patient with history of cancer. If the Patient and family elect to avoid subcutaneous injection or stronger anticoagulant then aspirin 81 mg b.i.d. can be used as an alternative if there are excessive bleeding concerns. Follow-up [facility] in 2 weeks for wound check and repeat x-rays. Keep Aquacel dressing in place. May shower. May change dressing if saturated. Time Spent With Patient Time with patient: less than 15 minutes
[2023-03-20 10:47] VITALS: O2SAT 92
--- NOTE | 2023-03-20 11:00 | PT-IP ANOTE ---
checked with nurse and stated that pt continues to have low BP: 77/39. checked with hospitalist and stated that he will be talkiing to pt and family for possible hospice care but to put pt on hold for today and will d/c when hospice decision is definite. will f/u.
[2023-03-20 12:00] VITALS: BP 84/45; PULSE 97; RESP 16; TEMP 36.1
[2023-03-20] MEDS: MORPHINE 10 MG/0.5 ML ORAL SYRINGE SL (13:41)
--- NOTE | 2023-03-20 14:36 | PM.PN.1 ---
Subjective Subjective Interval history: Patient having low BP at 70/38 despite IVF. Now crackles present in lungs. Spoke with daughter that it might be time for comfort care and she is agreeable. Patient transitioned to comfort. Exam Vital Signs (past 8 hours): - 03/20/23 08:03 03/20/23 10:47 03/20/23 12:00 Temperature 97.6 F 97 F L Pulse Rate 68 97 H Respiratory Rate 20 16 Blood Pressure 110/67 84/45 L Pulse Oximetry 92 92 Oxygen Delivery Method Nasal Cannula Oxygen Flow Rate 3 3 Fraction of Inspired Oxygen 32 Fraction of Inspired Oxygen 32 SaO2/FiO2 Ratio 287 Oxygen Delivery Method Nasal Cannula Oxygen Flow Rate 3 Narrative Exam Narrative: lethargic HENMT Other: O2 via NC Eyes Other: reactive pupils, eomi Resp Other: normal respiratory effort at rest Cardio Other: RRR Neuro Other: w/o focal deficits Objective Labs 03/20/23 04:39 03/20/23 04:39 Labs: Laboratory Results - last 24 hr 03/20/23 04:39 WBC 8.8 RBC 3.95 L Hgb 11.3 L Hct 34.4 L MCV 86.9 MCH 28.7 MCHC 33.0 RDW 14.6 Plt Count 203 Sodium 132 L Potassium 3.6 Chloride 94 L Carbon Dioxide 34 H BUN 20 H Creatinine 0.54 Estimated GFR > 60 BUN/Creatinine Ratio 37.0 H Glucose 101 Calcium 10.8 H PFSH Medical History On home oxygen therapy Weight loss of more than 10% body weight Vision impairment Cachexia Depression Anaphylactic reaction (07/31/08) Diverticulosis Neuropathy Difficulty swallowing Arthritis Emphysema lung Heart murmur Chest pain Malignant neoplasm of lung Nocturnal hypoxia Constipation 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) Osteoporosis (~2016) Aortic stenosis Mitral valve disorder Pulmonary embolism Coronary artery disease Peripheral neuropathy GERD (gastroesophageal reflux disease) Dermatitis Non Hodgkin's lymphoma Acute CVA (cerebrovascular accident) (2018) Retinal artery occlusion Macular degeneration Hypothyroidism Hyperlipidemia Hypertension History of aortic valve replacement with bioprosthetic valve (10/23/10) Raynaud's disease (05/17/12) Current smoker (05/17/12) Chronic obstructive pulmonary disease 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) Osteoarthritis (07/23/10) Surgical History History of surgery Hx of fusion of cervical spine (02/2006) History of removal of Port-a-Cath (07/04/17) H/O total hysterectomy History of cholecystectomy History of appendectomy History of lung surgery (1994) Hx of fusion of cervical spine (~03/2004) History of lumpectomy of left breast Hx of hysterectomy (~04/1987) Hx of aortic valve replacement (06/22/13) History of cataract removal with insertion of prosthetic lens (2008) Status post cholecystectomy (08/22/09) Family History Mother Cancer Colon cancer Heart disease Father Lung cancer Brother Lung cancer Sister CVA (cerebral vascular accident) Heart disease Daughter Myocardial infarction Social History marital status: unknown household members: none Smoking Status: Current every day smoker Tobacco: How many years used: 50 second hand exposure: Yes alcohol intake: current substance use type: does not use Assessment & Plan Assessment and plan (1) Closed intertrochanteric fracture of right hip: Qualifiers: Encounter type: initial encounter Fracture alignment: nondisplaced Qualified Code(s): S72.144A - Nondisplaced intertrochanteric fracture of right femur, initial encounter for closed fracture Status: Acute Plan: Admitted for surgical repair Dr. 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 Likely imminent in next 48 hours.
[2023-03-20 16:02] VITALS: BP 85/46; PULSE 104; RESP 16; TEMP 36.6
--- NOTE | 2023-03-20 16:46 | PC.NURSE ---
Pt has had a comfortable day. At b'fast Pt was appearing to slow in response to questins and taking food. B/p's were soft as noted and Pt was given a NS bolus per orders. Urine output minimal over the Pt's stay. IVF's running at [address] Byrd spoke with Pt and by phone with Pt's daughter regarding comfort care. Daughter arrived at bedside about 3:00. Pt asked and received SL morphine and has been restfull this afternoon.
[2023-03-21] MEDS: LORazepam 2 MG/ML ORAL SOL 1 MG SL (02:58)
[2023-03-21 07:00] VITALS: BP 84/47; PULSE 81; RESP 20; TEMP 36; O2SAT 84
--- NOTE | 2023-03-21 11:07 | PM.PN.1 ---
Subjective Subjective Interval history: Patient appears comfortable. Daughter at bedside. Having lots of secretions and daughter requesting atropine drops. Exam Vital Signs (past 8 hours): - 03/21/23 07:00 03/21/23 07:00 Temperature 96.8 F L Pulse Rate 81 Respiratory Rate 20 Blood Pressure 84/47 L Pulse Oximetry 84 L Oxygen Delivery Method Oximask Oxygen Flow Rate 3 Fraction of Inspired Oxygen 32 SaO2/FiO2 Ratio 287 Oxygen Delivery Method Oximask Oxygen Flow Rate 3 Narrative Exam Narrative: sleeping HENMT Other: oxymask in place Eyes Other: reactive pupils, eomi Resp Other: normal respiratory effort at rest Cardio Other: RRR Neuro Other: w/o focal deficits Objective Labs 03/20/23 04:39 03/20/23 04:39 [facility] Medical History On home oxygen therapy Weight loss of more than 10% body weight Vision impairment Cachexia Depression Anaphylactic reaction (07/31/08) Diverticulosis Neuropathy Difficulty swallowing Arthritis Emphysema lung Heart murmur Chest pain Malignant neoplasm of lung Nocturnal hypoxia Constipation 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) Osteoporosis (~2015) Aortic stenosis Mitral valve disorder Pulmonary embolism Coronary artery disease Peripheral neuropathy GERD (gastroesophageal reflux disease) Dermatitis Non Hodgkin's lymphoma Acute CVA (cerebrovascular accident) (2017) Retinal artery occlusion Macular degeneration Hypothyroidism Hyperlipidemia Hypertension History of aortic valve replacement with bioprosthetic valve (10/23/10) Raynaud's disease (05/17/12) Current smoker (05/17/12) Chronic obstructive pulmonary disease 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) Osteoarthritis (07/23/10) Surgical History History of surgery Hx of fusion of cervical spine (02/2006) History of removal of Port-a-Cath (07/04/17) H/O total hysterectomy History of cholecystectomy History of appendectomy History of lung surgery (1994) Hx of fusion of cervical spine (~03/2004) History of lumpectomy of left breast Hx of hysterectomy (~04/1987) Hx of aortic valve replacement (06/22/13) History of cataract removal with insertion of prosthetic lens (2008) Status post cholecystectomy (08/22/09) Family History Mother Cancer Colon cancer Heart disease Father Lung cancer Brother Lung cancer Sister CVA (cerebral vascular accident) Heart disease Daughter Myocardial infarction Social History marital status: unknown household members: none Smoking Status: Current every day smoker Tobacco: How many years used: 50 second hand exposure: Yes alcohol intake: current substance use type: does not use Assessment & Plan Assessment and plan (1) Closed intertrochanteric fracture of right hip: Qualifiers: Encounter type: initial encounter Fracture alignment: nondisplaced Qualified Code(s): S72.144A - Nondisplaced intertrochanteric fracture of right femur, initial encounter for closed fracture Status: Acute Plan: Admitted for surgical repair Dr. 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 Likely imminent in next 48 hours.
[2023-03-21] MEDS: ATROPINE 1% OPHTH 2 DROPS SL ×2 (12:35→16:07)
[2023-03-21] MEDS: MORPHINE 10 MG/0.5 ML ORAL SYRINGE SL ×3 (16:07→23:48)
[2023-03-22] MEDS: LORazepam 2 MG/ML ORAL SOL 1 MG SL (03:32)
[2023-03-22 07:00] VITALS: RESP 38
[2023-03-22] MEDS: MORPHINE 10 MG/0.5 ML ORAL SYRINGE SL (08:09)
--- NOTE | 2023-03-22 09:22 | P.PN_ITS ---
Subjective Subjective Interval history: Sleeping, tachypnea. Daughter Kenyetta at bedside. Exam Vital Signs (past 8 hours): - 03/22/23 07:00 03/22/23 08:41 Oxygen Delivery Method Nasal Cannula Nasal Cannula Oxygen Flow Rate 3 Fraction of Inspired Oxygen 32 Fraction of Inspired Oxygen 32 SaO2/FiO2 Ratio 287 Oxygen Delivery Method Nasal Cannula Oxygen Flow Rate 3 Narrative Exam Narrative: Sleeping, tachypnea. NAD Respirations increased and increased work of breathing. Abdomen non-distended. No skin rash. 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) Osteoporosis (~2015) Aortic stenosis Mitral valve disorder Pulmonary embolism Coronary artery disease Peripheral neuropathy GERD (gastroesophageal reflux disease) Dermatitis Non Hodgkin's lymphoma Acute CVA (cerebrovascular accident) (2017) Retinal artery occlusion Macular degeneration Hypothyroidism Hyperlipidemia Hypertension History of aortic valve replacement with bioprosthetic valve (10/23/10) Raynaud's disease (05/17/12) Current smoker (05/17/12) Chronic obstructive pulmonary disease 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) Osteoarthritis (07/23/10) Surgical History History of surgery Hx of fusion of cervical spine (02/2006) History of removal of Port-a-Cath (07/04/17) H/O total hysterectomy History of cholecystectomy History of appendectomy History of lung surgery (1994) Hx of fusion of cervical spine (~03/2004) History of lumpectomy of left breast Hx of hysterectomy (~04/1987) Hx of aortic valve replacement (06/22/13) History of cataract removal with insertion of prosthetic lens (2008) Status post cholecystectomy (08/22/09) Family History Mother Cancer Colon cancer Heart disease Father Lung cancer Brother Lung cancer Sister CVA (cerebral vascular accident) Heart disease Daughter Myocardial infarction Social History marital status: unknown household members: none Smoking Status: Current every day smoker Tobacco: How many years used: 50 second hand exposure: Yes alcohol intake: current substance use type: does not use Assessment & Plan Assessment & Plan narrative: 1. Right hip fracture, POA and active. -ORIF 03/19. 2. Lung cancer (SCC), POA and active. -Now on comfort care. Had been on palliative chemotherapy. 3. NHL, POA 4. Osteoporosis with pathological hip fracture, POA and active. Continue Comfort care in the hospital.
--- NOTE | 2023-03-22 10:38 | CM.DPC ---
DCP Comfort Measures Per MD, pt seems to have more labored breathing and pt appears to be imminent to at the hospital within 24 hours. Per RN, pt's breathing has changed a lot since yesterday and Morphine was started overnight and family/Dtr has been bedside continuously. JAS spoke to Shoshana at [facility] who confirms she completed Info Visit with Dtr Kenyetta this morning and aware that pt may here but if pt stabilizes or rallies than Dtr confirmed no DME needed for delivery and plan is to update [facility] tomorrow Tues if pt remains in the hospital to get pt on their schedule. JAS updated RN and MD. Plan: SW to follow for pt to likely in the hospital in the next 24 hrs and if pt stabilizes then plan of contacting [facility] to get pt on their schedule for d/c to home and no DME needed at this time. Samantha Carcamo MSW
--- NOTE | 2023-03-22 14:18 | PC.NURSE ---
Addendum entered by Nikki Vazquez R.N. 03/22/23 15:35: [facility] came to bed pt body @ 1535. Notified daughter, Kenyetta. Original Note: Pt's daughter, Kenyetta, requested that pt receive a dose of morphine d/t contractual breathing pattern and pt looking uncomfortable/frowning a lot. Neli RN went to get morphine dose and administer, but daughter and friend stated that pt looked more relaxed now and to wait 5 more mins to administer. After 5 mins, friend came out of room and stated that pt had @ 12:30. Neli RN and this RN returned morphine dose to [facility] in [facility]. customs director notified and notified. customs director called [employer] per daughter's request. Awaiting ETA. removed gaspar and gave glasses to pt's daughter and notified daughter of potential ETA.
--- NOTE | 2023-03-22 14:48 | PM.DDS.1 ---
Discharge Summary History of Illness Narrative: 82 y/o with PMH of lung carcinoma on palliative Tx and 2 L of oxygen at home, sustained GLF and Rt intertrochanteric femoral fracture. She is ambulatory and lives independently at baseline. Complains on hip pain. Not sure why she fell. Hospital Course Date of Admission: 03/19/23 03:16 Primary care provider: EDDIE Cheema Consults: 03/19/23 01:50 Consult to Orthopedic Surgery Stat Comment: Consulting Provider: Марина Verdugo Reason for consultation: Hip fracture Has provider been notified: Yes 03/19/23 11:09 Consult to Discharge Planning Routine Comment: 03/20/23 11:36 Consult to Discharge Planning Routine Comment: Consult to Hospice Referral Urgent Comment: Discharge provider: Rashad Hoskins MD Discharge Diagnosis: 1. Expiration while on comfort care. 2. Right hip fracture, status post ORIF. 3. Squamous cell cancer of the lung, had currently been on palliative chemotherapy. 4. Osteoporosis with pathologic hip fracture. Hospital Course: The patient was admitted for a hip fracture after a fall. She underwent operative repair on March 19. Shortly after she requested comfort care and was reported by her family. The patient was in the hospital being treated for comfort care and in the morning of March 22 with her daughter Kenyetta at her side. Objective Imaging Pelvis CT and hip x-ray: Radiologist's impression: Reveal a non-displaced inter-trochanteric fracture of the right femur. Labs 03/20/23 04:39 03/20/23 04:39
== END 2023-03-22 15:35 | disposition expired | DRG 480 ==
LOC: ED 03-19 01:50 → AC 03-19 03:17
PROVIDERS: Orthopaedic Surgery Foot and Ankle Surgery; Student in an Organized Health Care Education/Training Program; Admitting Provider Internal Medicine; Emergency Provider Emergency Medicine; PCP Nurse Practitioner; Referring Provider Emergency Medicine; Visit Provider Internal Medicine
PROC: 0QS606Z Reposition Right Upper Femur with Intramedullary Internal Fixation Device, Open Approach (ICD-10-PCS; CPT 27245; principal; 2023-03-19 09:30)
DX: M80.851A Other osteoporosis with current pathological fracture, right femur, initial encounter for fracture (principal); E43 Unspecified severe protein-calorie malnutrition; C34.11 Malignant neoplasm of upper lobe, right bronchus or lung; C85.90 Non-Hodgkin lymphoma, unspecified, unspecified site; Z68.1 Body mass index [BMI] 19.9 or less, adult; H54.61 Unqualified visual loss, right eye, normal vision left eye; F17.210 Nicotine dependence, cigarettes, uncomplicated; Z95.2 Presence of prosthetic heart valve; Z66 Do not resuscitate; Z51.5 Encounter for palliative care
CPT/HCPCS: 36415; 72192; 73502; 76000; 80048; 83735; 85025; 85027; 93005; 94762; 96374; 96376; 97163; 97167; 99285; J0171; J0330; J0690; J1650; J1885; J2270; J2405; J2704; J3010